=== PATIENT | female | born 1935 | race Caucasian/White ===

== ENCOUNTER → 2016-10-03 | Outpatient (CLI) | payer MEDICARE, BC ==
--- NOTE | 2016-10-04 08:31 | MM ---
Reason for exam: screening (asymptomatic). Last mammogram was performed 6 months ago. History: Patient is postmenopausal. Family history of breast cancer in maternal aunt at age 50. Benign excisional biopsy of the left breast. Physical Findings: A clinical breast exam by your physician is recommended on an annual basis and results should be correlated with mammographic findings. MG 3D Screening Mammo W/Cad Bilateral CC and MLO view(s) were taken. Prior study comparison: April 06, 2016, right breast MG 3d diag mammo w/cad RT. October 05, 2015, right breast MG 3d work up w/cad RT. There are scattered fibroglandular densities. Finding: There are typically benign vascular, round calcifications in both breasts. There is a chronic nodularity in the right breast. There is no discrete abnormality. ASSESSMENT: Benign, BI-RAD 2 RECOMMENDATION: Routine screening mammogram of both breasts in 1 year.
== END | disposition home or self-care (01) ==
LOC: RADMAMWWP 07:13
PROVIDERS: ATTEND Family Medicine
DX: Z12.31 Encounter for screening mammogram for malignant neoplasm of breast (principal)
CPT/HCPCS: 77063; G0202

== ENCOUNTER → 2017-03-08 | Outpatient (CLI) | payer MEDICARE, BC ==
--- NOTE | 2017-03-08 08:52 | XR ---
EXAMINATION TYPE: XR lumbar spine 2 or 3V DATE OF EXAM: 03/08/2017 COMPARISON: 12/11/2009 HISTORY: 81-year-old female intervertebral disc degeneration, back surgery in 2004. Numbness and ting ling for a few months. TECHNIQUE: 3 views FINDINGS: Degenerated levoconvex curvature with 5 lumbar type vertebral bodies. Hypertrophic facet arthropathy throughout, greatest in the mid to lower lumbar spine. Vertebral body heights are preserved. There is trace grade 1 anterolisthesis at L5-S1. Mild multilevel endplate spondylosis. Atherosclerotic calcif ications within the abdominal aorta. Degenerative thinning of the interspinous ligaments with abutmen t and near abutment of the spinous processes. IMPRESSION: 1. Degenerated levoconvex curvature. 2. Marked hypertrophic facet arthropathy with trace grade 1 anterolisthesis at L5-S1. 3. Mild multilevel degenerative disc disease. 4. No vertebral compression collapse. 5. Baastrup's disease.
== END | disposition home or self-care (01) ==
LOC: RADXRMAIN 07:58
PROVIDERS: ATTEND Family Medicine
DX: M51.36 Other intervertebral disc degeneration, lumbar region (principal); M46.07 Spinal enthesopathy, lumbosacral region; M48.26 Kissing spine, lumbar region; M43.8X6 Other specified deforming dorsopathies, lumbar region
CPT/HCPCS: 72100

== ENCOUNTER 2017-05-31 06:40 | Inpatient (IN) | payer MEDICARE, BC ==
[2017-05-31] MEDS ORDERED: SODIUM CHLORIDE 0.9% 1,000 ML IV STA ×2 (07:25→08:48)
[2017-05-31] MEDS ORDERED: RX INFO: IV CONTRAST WAS GIVEN 1 EACH MISC MISCELLANE PRN (07:25)
[2017-05-31] MEDS ORDERED: METOPROLOL TARTRATE 50 MG TAB PO STA (07:27)
--- NOTE | 2017-05-31 07:29 | ED ---
General Adult HPI - General Chief complaint: Neuro Symptoms/Deficit Stated complaint: Right Side Numbness Time Seen by Provider: 05/31/17 07:17 Source: patient, RN notes reviewed Mode of arrival: wheelchair Limitations: no limitations - History of Present Illness Initial comments: Patient is a pleasant 82-year-old female presenting to the emergency department with right-sided numbness. Patient last known well around 11 PM. Patient states she did have some numbness after cutting her right hand around 6:00 yesterday. Patient later noticed some numbness of her right face. Right facial numbness has resolved. Patient woke up at 2 AM and has had right upper and lower extremity numbness/tingling since that time. Patient states there is slight difficulty with walking with her right leg and is unclear whether or not there could be weakness. No confusion or speech problems. Patient is legally blind and has difficulty with eye movement. - Related Data Home Medications Medication Instructions Recorded Confirmed Aspirin 81 mg PO HS@1800 01/21/14 05/31/17 Clopidogrel [Plavix] 75 mg PO DAILY 01/21/14 05/31/17 Ezetimibe [Zetia] 10 mg PO HS 01/21/14 05/31/17 Metoprolol Tartrate [Lopressor] 50 mg PO BID 01/21/14 05/31/17 Nitroglycerin Sl Tabs [Nitrostat] 0.4 mg SUBLINGUAL Q5M PRN 01/21/14 05/31/17 ALPRAZolam [Xanax] 0.25 mg PO DAILY PRN 05/03/16 05/31/17 Cholecalciferol [Vitamin D3] 1,000 unit PO DAILY 05/03/16 05/31/17 Vits A,C,E/Lutein/Minerals 2 tab PO DAILY 05/03/16 05/31/17 [Ocuvite with Lutein Tablet] Amoxic-Pot Clav 875-125Mg 1 tab PO Q12HR 05/31/17 05/31/17 [Augmentin 875-125] Atorvastatin [Lipitor] 10 mg PO HS 05/31/17 05/31/17 Hydrochlorothiazide [Hydrodiuril] 12.5 mg PO DAILY 05/31/17 05/31/17 Levothyroxine Sodium [Synthroid] 88 mcg PO DAILY 05/31/17 05/31/17 Olmesartan [Benicar] 20 mg PO DAILY 05/31/17 05/31/17 predniSONE 20 mg PO DAILY 05/31/17 05/31/17 sitaGLIPtin PHOS/metFORMIN HCL 1 tab PO BID 05/31/17 05/31/17 [Janumet 50-500 mg Tablet] Allergies Allergy/AdvReac Type Severity Reaction Status Date / Time PAPER TAPE AdvReac RED SKIN Uncoded 05/03/16 19:26 Review of Systems ROS Statement: Those systems with pertinent positive or pertinent negative responses have been documented in the HPI. ROS Other: All systems not noted in ROS Statement are negative. Constitutional: Denies: fever Eyes: Denies: eye pain ENT: Denies: ear pain Respiratory: Denies: cough Cardiovascular: Denies: chest pain Endocrine: Denies: fatigue Gastrointestinal: Denies: abdominal pain Genitourinary: Denies: dysuria Musculoskeletal: Denies: back pain Skin: Denies: rash Neurological: Reports: paresthesias. Denies: headache Past Medical History Past Medical History: Coronary Artery Disease (CAD), Myocardial Infarction (LA) Additional Past Medical History / Comment(s): LEGALLY BLIND Last Myocardial Infarction Date:: 11/2011 History of Any Multi-Drug Resistant Organisms: None Reported Past Surgical History: Back Surgery, Heart Catheterization With Stent, Orthopedic Surgery Additional Past Surgical History / Comment(s): THROAT SURGERY, headache Additional Past Anesthesia/Blood Transfusion Reaction / Comment(s): hard to wake up Date of Last Stent Placement:: 12/22/2011 Past Psychological History: Anxiety Smoking Status: Never smoker Past Alcohol Use History: None Reported Past Drug Use History: None Reported - Past Family History Mother Family Medical History: Myocardial Infarction (LA) Brother(s) Family Medical History: Myocardial Infarction (LA) General Exam Limitations: no limitations General appearance: alert, in no apparent distress Head exam: Present: atraumatic Eye exam: Present: normal appearance, PERRL ENT exam: Present: normal oropharynx Neck exam: Present: normal inspection Respiratory exam: Present: normal lung sounds bilaterally Cardiovascular Exam: Present: regular rate, normal rhythm GI/Abdominal exam: Present: soft. Absent: tenderness Extremities exam: Present: normal inspection Neurological exam: Present: alert Expanded Neurological exam: Present: other (Difficulty assessing extraocular muscles. No gross deficit.) Speech: Present: fluid speech Cranial nerves: Facial Sensation: Abnormal Right Sensory exam: Upper Extremity Light Touch: Abnormal Right, Lower Extremity Light Touch: Abnormal Right Motor strength exam: RUE: 5, LUE: 5, RLE: 4, LLE: 5 Eye Response: (4) open spontaneously Motor Response: (6) obeys commands Verbal Response: (5) oriented Psychiatric exam: Present: normal affect, normal mood Skin exam: Present: normal color Course Vital Signs 05/31/17 05/31/17 05/31/17 06:44 07:07 08:11 Temperature 96.8 F L Pulse Rate 78 79 68 Respiratory 18 16 16 Rate Blood Pressure 231/94 223/97 219/102 O2 Sat by Pulse 95 97 96 Oximetry 05/31/17 09:13 Temperature Pulse Rate 66 Respiratory 16 Rate Blood Pressure 226/110 O2 Sat by Pulse 97 Oximetry EKG Findings - EKG Comments: EKG Findings:: Normal sinus rhythm 75. IA 182. QRS 124. QT 398. QTC 444. Normal axis. Right bundle branch block. No acute ST change. Medical Decision Making - Medical Decision Making Patient reexamined and updated. Case discussed with Dr. Cameron, who will admit his patient. Had a pleural Dyazide will be held. Patient given additional metoprolol secondary to hypertension. - Lab Data Result diagrams: 05/31/17 07:10 05/31/17 07:10 Lab Results 05/31/17 05/31/17 05/31/17 Range/Units 07:10 07:10 07:10 WBC 11.2 H (3.8-10.6) k/uL RBC 4.49 (3.80-5.40) m/uL Hgb 13.6 (11.4-16.0) gm/dL Hct 40.1 (34.0-46.0) % MCV 89.2 (80.0-100.0) fL MCH 30.2 (25.0-35.0) pg MCHC 33.9 (31.0-37.0) g/dL RDW 12.6 (11.5-15.5) % Plt Count 341 (150-450) k/uL Neutrophils % 76 % Lymphocytes % 16 % Monocytes % 6 % Eosinophils % 1 % Basophils % 0 % Neutrophils # 8.5 H (1.3-7.7) k/uL Lymphocytes # 1.7 (1.0-4.8) k/uL Monocytes # 0.6 (0-1.0) k/uL Eosinophils # 0.1 (0-0.7) k/uL Basophils # 0.0 (0-0.2) k/uL PT (9.0-12.0) sec INR (<1.2) APTT (22.0-30.0) sec Sodium 124 L (137-145) mmol/L Potassium 4.5 (3.5-5.1) mmol/L Chloride 88 L (98-107) mmol/L Carbon Dioxide 22 (22-30) mmol/L Anion Gap 14 mmol/L BUN 13 (7-17) mg/dL Creatinine 0.65 (0.52-1.04) mg/dL Est GFR (MDRD) Af Amer >60 (>60 ml/min/1.73 sqM) Est GFR (MDRD) Non-Af >60 (>60 ml/min/1.73 sqM) Glucose 144 H (74-99) mg/dL Calcium 9.1 (8.4-10.2) mg/dL Total Bilirubin 0.3 (0.2-1.3) mg/dL AST 24 (14-36) U/L ALT 30 (9-52) U/L Alkaline Phosphatase 150 H (38-126) U/L Total Creatine Kinase 206 H (30-135) U/L CK-MB (CK-2) 5.4 H* (0.0-2.4) ng/mL CK-MB (CK-2) Rel Index 2.6 Troponin I <0.012 (0.000-0.034) ng/mL Total Protein 7.3 (6.3-8.2) g/dL Albumin 4.4 (3.5-5.0) g/dL 05/31/17 Range/Units 07:10 WBC (3.8-10.6) k/uL RBC (3.80-5.40) m/uL Hgb (11.4-16.0) gm/dL Hct (34.0-46.0) % MCV (80.0-100.0) fL MCH (25.0-35.0) pg MCHC (31.0-37.0) g/dL RDW (11.5-15.5) % Plt Count (150-450) k/uL Neutrophils % % Lymphocytes % % Monocytes % % Eosinophils % % Basophils % % Neutrophils # (1.3-7.7) k/uL Lymphocytes # (1.0-4.8) k/uL Monocytes # (0-1.0) k/uL Eosinophils # (0-0.7) k/uL Basophils # (0-0.2) k/uL PT 10.6 (9.0-12.0) sec INR 1.0 (<1.2) APTT 27.1 (22.0-30.0) sec Sodium (137-145) mmol/L Potassium (3.5-5.1) mmol/L Chloride (98-107) mmol/L Carbon Dioxide (22-30) mmol/L Anion Gap mmol/L BUN (7-17) mg/dL Creatinine (0.52-1.04) mg/dL Est GFR (MDRD) Af Amer (>60 ml/min/1.73 sqM) Est GFR (MDRD) Non-Af (>60 ml/min/1.73 sqM) Glucose (74-99) mg/dL Calcium (8.4-10.2) mg/dL Total Bilirubin (0.2-1.3) mg/dL AST (14-36) U/L ALT (9-52) U/L Alkaline Phosphatase (38-126) U/L Total Creatine Kinase (30-135) U/L CK-MB (CK-2) (0.0-2.4) ng/mL CK-MB (CK-2) Rel Index Troponin I (0.000-0.034) ng/mL Total Protein (6.3-8.2) g/dL Albumin (3.5-5.0) g/dL - Radiology Data Radiology results: image reviewed (Computed tomography scan of the brain shows no acute abnormality. Moderate burden of chronic small vessel ischemic disease. ) Disposition Clinical Impression: Cerebrovascular accident, Hypertensive urgency, Hyponatremia Disposition: ADMITTED IP TO THIS HOSP Referrals: Anthony Cameron MD [Primary Care Provider] - 1-2 days Decision Time: 09:26
[2017-05-31 07:47] LABS: ALT 30 U/L (9-52); AST 24 U/L (14-36); Alkaline Phosphatase 150 U/L (38-126); Anion Gap 14 mmol/L; Blood Urea Nitrogen 13 mg/dL (7-17); Calcium 9.1 mg/dL (8.4-10.2); Carbon Dioxide 22 mmol/L (22-30); Chloride 88 mmol/L (98-107); Glucose 144 mg/dL (74-99); Non-African American GFR(MDRD) >60 (>60 ml/min/1.73 sqM); Partial Thromboplastin Time 27.1 sec (22.0-30.0); Potassium 4.5 mmol/L (3.5-5.1); Prothrombin Time 10.6 sec (9.0-12.0); Sodium 124 mmol/L (137-145); Total Bilirubin 0.3 mg/dL (0.2-1.3); Total Protein 7.3 g/dL (6.3-8.2)
[2017-05-31 08:04] LABS: Creatine Kinase 206 U/L (30-135)
--- NOTE | 2017-05-31 08:04 | CT ---
EXAMINATION TYPE: CT brain wo con DATE OF EXAM: 05/31/2017 COMPARISON: 07/13/2016 HISTORY: 82-year-old female with right side weakness TECHNIQUE: Examination was done in axial plane without intravenous contrast. Coronal and sagittal r econstructions performed. CT DLP: 945.5 mGycm Automated exposure control for dose reduction was used. FINDINGS: There is no evidence of acute intracranial hemorrhage, acute ischemic changes, mass, mass-effect, or extra-axial fluid collection. There is no effacement of cerebral sulci or basal subarachnoid cister ns. There is no hydrocephalus. There is no midline shift. Augustine-white matter distinction is preserv ed. Empty sella incidentally noted. Mild generalized supratentorial volume loss. Moderate patchy white ma tter hypodensities. Mild mucosal thickening within the ethmoid air cells. Mastoid air cells well pneumatized. Orbits and globes are intact. IMPRESSION: No acute intracranial abnormality seen at this time. Similar moderate burden of chronic small vessel ischemic disease.
--- NOTE | 2017-05-31 08:05 | XR ---
EXAMINATION TYPE: XR chest 2V DATE OF EXAM: 05/31/2017 COMPARISON: 03/12/2013 HISTORY: Altered mental status an right-sided weakness. TECHNIQUE: Frontal and lateral views of the chest are obtained. FINDINGS: There is no focal air space opacity, pleural effusion, or pneumothorax seen. The cardiac silhouette size is within normal limits. The osseous structures are intact with degenerative change s of the thoracic spine, chromic clavicular joint and glenohumeral joints. IMPRESSION: No acute cardiopulmonary process.
[2017-05-31 08:07] LABS: Basophils % (A) 0 %; CH 30.8; CHCM 34.6; Eosinophils # (A) 0.1 k/uL (0-0.7); Eosinophils % (A) 1 %; HCT 40.1 % (34.0-46.0); HDW 2.16; HGB 13.6 gm/dL (11.4-16.0); Luc # (Auto) 0.22; Luc % (Auto) 2; Lymphocytes # (A) 1.7 k/uL (1.0-4.8); Lymphocytes % (A) 16 %; MCH 30.2 pg (25.0-35.0); MCHC 33.9 g/dL (31.0-37.0); MCV 89.2 fL (80.0-100.0); Mean Platelet Volume 6.7; Monocytes # (A) 0.6 k/uL (0-1.0); Monocytes % (A) 6 %; Neutrophils # (A) 8.5 k/uL (1.3-7.7); Neutrophils % (A) 76 %; RBC 4.49 m/uL (3.80-5.40); RDW 12.6 % (11.5-15.5); WBC 11.2 k/uL (3.8-10.6); WBC (Perox) 11.12
[2017-05-31 08:16] LABS: Troponin I <0.012 ng/mL (0.000-0.034)
[2017-05-31 08:30] LABS: Creatine Kinase MB 5.4 ng/mL (0.0-2.4)
[2017-05-31] MEDS ORDERED: METOPROLOL TARTRATE 25 MG TAB PO STA (09:15)
[2017-05-31] MEDS ORDERED: ASPIRIN 325 MG TAB PO STA (09:26)
--- NOTE | 2017-05-31 09:45 | CT ---
EXAMINATION TYPE: CT angio head neck DATE OF EXAM: 05/31/2017 COMPARISON: CT brain same day HISTORY: 82-year-old female with right side weakness TECHNIQUE: Contiguous axial scanning of the brain and neck performed with IV Contrast, patient inject ed with 65 mL of Visipaque 320. Coronal/sagittal MIP reconstructions performed. 3-D reconstructions g enerated on a dedicated independent workstation. CT DLP: 265.9 mGycm Automated exposure control for dose reduction was used. FINDINGS: NECK: Mild diffuse bronchial wall thickening suggest bronchitis or chronic asthma. Mild atherosclerotic arch calcifications. Conventional arch vessel branching anatomy with patent grea t vessel origins. Mild atherosclerotic narrowing at the proximal right subclavian artery. Both vertebral arteries inclu ding their origins appear patent. On the right, there is some focal tortuosity of the proximal right common carotid artery. The common carotid artery remains patent. There is moderate atherosclerotic change at the bifurcation with moder ate to severe narrowing at the origin of the external carotid artery. Primarily soft plaque causes mi ld, 45% narrowing at the carotid bulb. On the left, the common carotid artery is patent. There is mild atherosclerotic change at the bifurca tion though a mild to moderate narrowing of the external carotid artery at its origin. Mild eccentric atherosclerotic calcifications in the distal carotid bulb contributes to a mild, 45% proximal ICA na rrowing. Head: The intracranial vertebral arteries are patent as is the basilar artery though there is moderate foca l stenosis of the distal basilar artery prior to its terminus. There is hypoplastic P1 segment left p osterior cerebral artery and persistent origin of the left TOY DEPARTMENT MANAGER. There is moderate atherosclerotic narrowing of the right ICA within the petrous canal secondary to so ft plaque. Additional moderate segmental narrowing of the bilateral internal carotid arteries within the carotid siphon secondary to arthroscopic calcifications. The remainder of the anterior circulation appears p atent without any arterial occlusion identified. No aneurysmal change identified. IMPRESSION: NECK: 1. MILD, APPROXIMATELY 45% ATHEROSCLEROTIC NARROWING WITHIN THE BILATERAL PROXIMAL ICA's BY NASCET CRITERIA. HEAD: 2. MODERATE FOCAL STENOSIS DISTAL BASILAR ARTERY PRIOR TO ITS TERMINUS. 3. SOFT PLAQUE CAUSING MODERATE NARROWING OF THE PETROUS SEGMENT RIGHT ICA. 4. ADDITIONAL MODERATE SEGMENTAL STENOSES WITHIN THE BILATERAL ICA's IN THE CAROTID SIPHONS. 5. 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 6. NO LARGE VESSEL INTRACRANIAL ARTERIAL OCCLUSION OR ANEURYSMAL CHANGE SEEN.
[2017-05-31] MEDS: SODIUM CHLORIDE 0.9% 1,000 ML IV SCH ×2 (10:00→21:20)
[2017-05-31] MEDS ORDERED: NITROGLYCERIN SL TABS 0.4 MG TAB SUBLINGUAL PRN (10:26)
--- NOTE | 2017-05-31 10:43 | ECHOF ---
Referral Reason:Thrombus MEASUREMENTS -------- HEIGHT: 149.9 cm WEIGHT: 71.2 kg BP: 169/84 RVIDd: 3.1 cm (< 3.3) IVSd: 1.2 cm (0.6 - 1.1) LVIDd: 3.4 cm (3.9 - 5.3) LVPWd: 1.2 cm (0.6 - 1.1) EDV(Teich): 47 ml IVSs: 1.6 cm LVIDs: 2.3 cm LVPWs: 1.8 cm %IVS Thck: 30 % ESV(Teich): 18 ml EF(Teich): 61 % %FS: 32 % SV(Teich): 29 ml LA Diam: 3.5 cm (2.7 - 3.8) LALs A4C: 5.8 cm LAAs A4C: 14.8 cm LAESV A-L A4C: 32 ml LAESV MOD A4C: 32 ml LALs A2C: 5.8 cm LAAs A2C: 16.2 cm LAESV A-L A2C: 38 ml LAESV MOD A2C: 36 ml LAESV(A-L): 35 ml LAESV Index (A-L): 20.91 ml/m Ao Diam: 3.2 cm (2.0 - 3.7) AV Cusp: 1.5 cm (1.5 - 2.6) MV E Adrian: 0.97 m/s MV DecT: 236 ms MV Dec [place]: 4.1 m/s MV A Adrian: 0.95 m/s MV E/A Ratio: 1.02 MV PHT: 68 ms E/E': 16.83 E': 0.06 m/s AV Vmax: 1.35 m/s AV maxP.32 mmHg TR Vmax: 2.71 m/s TR maxP.32 mmHg RAP: 5.00 mmHg RVSP: 34.32 mmHg FINDINGS -------- Sinus rhythm. This was a technically good study. The left ventricular size is normal. There is borderline concentric left ventricular hypertrophy. Overall left ventricular systolic function is normal with, an EF between 60 - 65 %. The right ventricle is normal in size. Normal LA size by volume 22+/-6 ml/m2. The right atrium is normal in size. There is mild aortic valve sclerosis. Mild mitral annular calcification present. Mild mitral regurgitation is present. Mild tricuspid regurgitation present. There is borderline pulmonary hypertension. The right ventricular systolic pressure, as measured by Doppler, is 34.32mmHg. Trace/mild (physiologic) pulmonic regurgitation. The aortic root size is normal. Normal inferior vena cava with normal inspiratory collapse consistent with estimated right atrial pressure of 5 mmHg. There is no pericardial effusion. CONCLUSIONS -------- 1. Sinus rhythm. 2. Mild mitral annular calcification present. 3. Mild mitral regurgitation is present. 4. Mild tricuspid regurgitation present. 5. There is borderline pulmonary hypertension. 6. The right ventricular systolic pressure, as measured by Doppler, is 34.32mmHg. 7. Trace/mild (physiologic) pulmonic regurgitation. 8. The aortic root size is normal. 9. Normal inferior vena cava with normal inspiratory collapse consistent with estimated right atrial pressure of 5 mmHg. 10. There is no pericardial effusion. 11. This was a technically good study. 12. The left ventricular size is normal. 13. There is borderline concentric left ventricular hypertrophy. 14. Overall left ventricular systolic function is normal with, an EF between 60 - 65 %. 15. The right ventricle is normal in size. 16. Normal LA size by volume 22+/-6 ml/m2. 17. The right atrium is normal in size. 18. There is mild aortic valve sclerosis. GLASS LAMINATING OPERATOR: Berenice Sampson RDCS
--- NOTE | 2017-05-31 12:01 | P.HPIM ---
History of Present Illness 82-year-old female presented to family physician 05/30/2017 for complaints of cough and sinus congestion. Over the night she developed right-sided weakness with right-sided facial droop she then presented to the emergency room. Patient will be admitted for evaluation of CVA. Patient has a history of coronary disease with RI with stents. 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 Last Myocardial Infarction Date:: 11/2011 History of Any Multi-Drug Resistant Organisms: None Reported Past Surgical History: Back Surgery, Breast Surgery, Heart Catheterization With Stent, Hysterectomy, Orthopedic Surgery, Tubal Ligation Additional Past Surgical History / Comment(s): RIGHT EYE CATARACT REMOVAL, LASER EYE SURGERY BILATERALLY, "TUBES IN EYES NOW OUT", THYROIDECTOMY D/T NODULES, TEMPORAL ARTERY BX, L BREAST BENIGN BX, LOW BACK SURGERY, R SHOULDER ROTATOR CUFF REPAIR, CERVICAL PAIN INJECTIONS. Additional Past Anesthesia/Blood Transfusion Reaction / Comment(s): hard to wake up Date of Last Stent Placement:: 12/22/2011 Smoking Status: Never smoker - Past Family History Mother Family Medical History: Myocardial Infarction (RI) Additional Family Medical History / Comment(s): MOTHER OF A RI AT THE AGE OF 57YRS. Brother(s) Family Medical History: Myocardial Infarction (RI) Additional Family Medical History / Comment(s): BROTHER OF A RI AT THE AGE OF 60YRS. Father Family Medical History: No Reported History Additional Family Medical History / Comment(s): FATHER LIVED TO BE 90YRS OLD. Medications and Allergies Home Medications Medication Instructions Recorded Confirmed Type Aspirin 81 mg PO HS@1800 01/21/14 05/31/17 History Clopidogrel [Plavix] 75 mg PO DAILY 01/21/14 05/31/17 History Ezetimibe [Zetia] 10 mg PO HS 01/21/14 05/31/17 History Metoprolol Tartrate [Lopressor] 50 mg PO BID 01/21/14 05/31/17 History Nitroglycerin Sl Tabs [Nitrostat] 0.4 mg SUBLINGUAL Q5M PRN 01/21/14 05/31/17 History ALPRAZolam [Xanax] 0.25 mg PO DAILY PRN 05/03/16 05/31/17 History Cholecalciferol [Vitamin D3] 1,000 unit PO DAILY 05/03/16 05/31/17 History Vits A,C,E/Lutein/Minerals 2 tab PO DAILY 05/03/16 05/31/17 History [Ocuvite with Lutein Tablet] Amoxic-Pot Clav 875-125Mg 1 tab PO Q12HR 05/31/17 05/31/17 History [Augmentin 875-125] Atorvastatin [Lipitor] 10 mg PO HS 05/31/17 05/31/17 History Hydrochlorothiazide [Hydrodiuril] 12.5 mg PO DAILY 05/31/17 05/31/17 History Levothyroxine Sodium [Synthroid] 88 mcg PO DAILY 05/31/17 05/31/17 History Olmesartan [Benicar] 20 mg PO DAILY 05/31/17 05/31/17 History predniSONE 20 mg PO DAILY 05/31/17 05/31/17 History sitaGLIPtin PHOS/metFORMIN HCL 1 tab PO BID 05/31/17 05/31/17 History [Janumet 50-500 mg Tablet] Allergies Allergy/AdvReac Type Severity Reaction Status Date / Time PAPER TAPE AdvReac RED SKIN Uncoded 05/03/16 19:26 Physical Exam Vitals: Vital Signs Temp Pulse Pulse Resp BP BP Pulse Ox 05/31/17 10:01 97.5 F L 64 18 221/108 97 05/31/17 09:41 65 18 229/96 05/31/17 09:13 66 16 226/110 97 05/31/17 08:11 68 16 219/102 96 05/31/17 07:07 79 16 223/97 97 05/31/17 06:44 96.8 F L 78 18 231/94 95 Intake and Output 1005/31/17 05/31/17 22:59 06:59 14:59 Other: Weight 71.214 kg - Constitutional General appearance: mild distress, obese - EENT Patient regularly ENT: normal oropharynx Ears: bilateral: normal - Neck Neck: normal ROM - Respiratory Respiratory: bilateral: CTA - Cardiovascular Rhythm: regular - Gastrointestinal General gastrointestinal: soft - Integumentary Integumentary: normal - Neurologic Neurologic: CNII-XII intact - Musculoskeletal Musculoskeletal: right sided weakness - Psychiatric Psychiatric: A&O x's 3, appropriate affect, intact judgment & insight Results CBC & Chem 7: 05/31/17 07:10 05/31/17 07:10 Labs: Abnormal Lab Results - Last 24 Hours (Table) 05/31/17 05/31/17 05/31/17 Range/Units 07:10 07:10 07:10 WBC 11.2 H (3.8-10.6) k/uL Neutrophils # 8.5 H (1.3-7.7) k/uL Sodium 124 L (137-145) mmol/L Chloride 88 L (98-107) mmol/L Glucose 144 H (74-99) mg/dL Alkaline Phosphatase 150 H (38-126) U/L Total Creatine Kinase 206 H (30-135) U/L CK-MB (CK-2) 5.4 H* (0.0-2.4) ng/mL Chest x-ray: report reviewed CT Scan - head: report reviewed Thrombosis Risk Factor Assmnt - Choose All That Apply Any of the Below Risk Factors Present?: Yes Each Factor Represents 1 point: Obesity (BMI >25) Other Risk Factors: Yes Each Risk Factor Represents 3 Points: Age 75 years or older Other congenital or acquired thrombophilia - If yes, enter type in comment: Yes Each Risk Factor Represents 5 Points: Stroke (< 1 month) Thrombosis Risk Factor Assessment Total Risk Factor Score: 9 Thrombosis Risk Factor Assessment Level: High Risk Assessment and Plan Plan: Assessment CVA right-sided weakness Hypertensive urgency Hyponatremia Sinusitis History of coronary disease with RI has stents Liver blind History of hypothyroidism History of hypertension Hyperlipidemia History of CVA/TIA Plan Consultation with neurology regarding CVA Consultation with cardiology regarding hypertension
[2017-05-31 12:25] LABS: Glucose,Whole Blood 121 mg/dL (75-99)
[2017-05-31] MEDS: amLODIPine 5 MG TAB PO SCH ×2 (12:56→21:17)
--- NOTE | 2017-05-31 13:07 | CONS ---
CONSULTATION Mrs. Brewster is an 82-year-old female who is followed by Dr. Isaiah Silva, has a known history of coronary artery disease, prior history of stroke, history of hypertension, hyperlipidemia, who presented to the hospital with right-sided numbness. Patient had underwent percutaneous revascularization in 2011, has been relatively stable from the cardiac standpoint, has mild dyspnea on exertion, occasional sharp chest pain. Today had numbness in the right upper extremity and lower extremity as well as right side of the face. Came into the emergency room, her blood pressure was quite elevated. Patient denies any significant chest discomfort, although earlier she had some chest heaviness. She has mild dyspnea on exertion that has been stable. Occasional peripheral edema. No clear PND or orthopnea. She has no history of arrhythmia. No PND, orthopnea, or syncope. She is in sinus mechanism on presentation. Her coronary risk factors are remarkable for hypertension and hyperlipidemia. She is a nonsmoker. She is diabetic. MEDICATION: Include Janumet 50-500 mg twice a day, Benicar 20 mg daily, metoprolol tartrate 50 mg twice a day, hydrochlorothiazide 12.5 mg daily, Zetia 10 mg daily, Plavix 75 mg daily, Lipitor 10 mg daily, aspirin once a day, and Xanax on a p.r.n. basis. REVIEW OF SYSTEMS: RESPIRATORY SYSTEM: She has no recent wheezing or cough. No history of obstructive lung disease. She has mild dyspnea on exertion. GI SYSTEM: No recent GI bleed. No peptic ulcer disease. SYSTEM: No dysuria or hematuria. NERVOUS SYSTEM: She has a prior history of stroke and she is legally blind. PHYSICAL EXAMINATION: She is an 82-year-old female, alert, oriented, in no apparent distress. Legally blind. Blood pressure running in the 220s/100 with a heart rate in the 60s. HEAD: Normocephalic. EYES: Sclerae nonicteric. NECK: Good upstroke. No bruit. LUNGS: Clear to auscultation. HEART: Regular rate and rhythm, S1, S2. No S3 with systolic murmur at the base. No diastolic murmur. No rub. ABDOMEN: Soft, nontender. No organomegaly. EXTREMITIES: No edema. LAB DATA: Revealed a BUN and creatinine of 13 and 0.6, potassium 4.5. Troponin less than 0.012. Her sodium is 124, hemoglobin of 13.6. EKG revealed a sinus mechanism with right bundle branch block. Cannot exclude a lateral wall WI. Her echocardiogram revealed a preserved ventricular size and systolic function. IMPRESSION: 1. Symptoms consistent with right-sided cerebrovascular accident. 2. Hypertension with hypertensive urgency. 3. Hyponatremia. 4. History of coronary artery disease. 5. Legally blind. 6. Hyperlipidemia. 7. Diabetes mellitus. RECOMMENDATION: I will add Norvasc 5 mg daily to the regimen as well as nitro paste and hydralazine to bring her blood pressure down. If there is an issue, then patient will need to be started on intravenous treatment. Will follow her sodium and depending on that, the issue of diuretic can be re-initiated. Thank you for this consult. We will follow with you. JALILL / IJN: [id number] /
[2017-05-31] MEDS: hydrALAZINE HCL 25 MG TAB PO SCH ×3 (13:10→21:17)
[2017-05-31 13:40] LABS: Hemoglobin A1C 6.5 % (4.2-6.1)
--- NOTE | 2017-05-31 14:03 | US ---
EXAMINATION TYPE: US carotid duplex BILAT DATE OF EXAM: 05/31/2017 COMPARISON: NONE CLINICAL HISTORY: Stenosis. EXAM MEASUREMENTS: RIGHT: Peak Systolic Velocity (PSV) cm/sec ----- Right CCA: 68.8 ----- Right ICA: 95.4 ----- Right ECA: 328.8 ICA/CCA ratio: 1.4 RIGHT: End Diastole cm/sec ----- Right CCA: 7.7 ----- Right ICA: 12.4 ----- Right ECA: 0.0 LEFT: Peak Systolic Velocity (PSV) cm/sec ----- Left CCA: 67.9 ----- Left ICA: 90.2 ----- Left ECA: 266.9 ICA/CCA ratio: 1.3 LEFT: End Diastole cm/sec ----- Left CCA: 7.0 ----- Left ICA: 13.7 ----- Left ECA: 0.0 VERTEBRALS (direction of flow): Right Vertebral: Antegrade Left Vertebral: Antegrade Rhythm: Normal Moderate grayscale atheromatous change, no significant velocity elevations in bilateral ICA, however ECA's show velocity elevations bilaterally. IMPRESSION: 1. No evidence of hemodynamically significant stenosis within either internal carotid artery. 2. Elevated velocities of the external carotid arteries and moderate plaquing of the bilateral caroti d bulbs indicating stenosis of 50-69% of both external carotid arteries.
[2017-05-31] MEDS: NITROGLYCERIN OINT 1 INCH/GM PACKET TOPICAL SCH ×2 (15:04→23:27)
[2017-05-31 16:40] LABS: Glucose,Whole Blood 95 mg/dL (75-99)
[2017-05-31] MEDS: INSULIN LISPRO (humaLOG) 300 UNIT/3 ML VIAL SQ SCH ×2 (17:02→21:22)
[2017-05-31] MEDS: metFORMIN 500 MG TAB PO SCH (17:03)
[2017-05-31] MEDS ORDERED: ATORVASTATIN 10 MG TAB PO SCH (21:00)
[2017-05-31] MEDS: AMOXIC-POT CLAV 875-125MG 1 EACH TAB PO SCH (21:16)
[2017-05-31] MEDS: METOPROLOL TARTRATE 50 MG TAB PO SCH (21:17)
[2017-05-31] MEDS: EZETIMIBE 10 MG TAB PO SCH (21:17)
[2017-05-31] MEDS: ATORVASTATIN 40 MG TAB PO SCH (21:17)
[2017-05-31 21:33] LABS: Glucose,Whole Blood 130 mg/dL (75-99)
[2017-05-31] MEDS: ALPRAZolam 0.25 MG TAB PO PRN (23:26)
[2017-06-01] MEDS: SODIUM CHLORIDE 0.9% 1,000 ML IV SCH ×3 (05:30→20:18)
[2017-06-01 06:08] LABS: Glucose,Whole Blood 123 mg/dL (75-99)
[2017-06-01] MEDS: INSULIN LISPRO (humaLOG) 300 UNIT/3 ML VIAL SQ SCH ×4 (06:31→20:15)
[2017-06-01 06:39] LABS: Anion Gap 9 mmol/L; Blood Urea Nitrogen 15 mg/dL (7-17); Calcium 8.2 mg/dL (8.4-10.2); Carbon Dioxide 24 mmol/L (22-30); Chloride 98 mmol/L (98-107); Cholesterol 138 mg/dL (<200); Glucose 130 mg/dL (74-99); HDL Cholesterol 62 mg/dL (40-60); Non-African American GFR(MDRD) >60 (>60 ml/min/1.73 sqM); Potassium 4.8 mmol/L (3.5-5.1); Sodium 131 mmol/L (137-145)
[2017-06-01] MEDS: LEVOTHYROXINE 88 MCG TAB PO SCH (06:49)
[2017-06-01] MEDS: NITROGLYCERIN OINT 1 INCH/GM PACKET TOPICAL SCH (08:35)
[2017-06-01] MEDS: AMOXIC-POT CLAV 875-125MG 1 EACH TAB PO SCH ×2 (08:35→20:09)
[2017-06-01] MEDS: METOPROLOL TARTRATE 50 MG TAB PO SCH ×2 (08:36→20:09)
[2017-06-01] MEDS: LINAGLIPTIN 5 MG TABLET PO SCH (08:36)
[2017-06-01] MEDS: ASPIRIN 325 MG TAB PO SCH (08:36)
[2017-06-01] MEDS: amLODIPine 5 MG TAB PO SCH ×2 (08:36→20:09)
[2017-06-01] MEDS: LOSARTAN 50 MG TAB PO SCH (08:37)
[2017-06-01] MEDS: CHOLECALCIFEROL 1,000 UNIT TAB PO SCH (08:37)
[2017-06-01] MEDS: metFORMIN 500 MG TAB PO SCH ×2 (08:37→17:27)
[2017-06-01] MEDS: hydrALAZINE HCL 25 MG TAB PO SCH (08:38)
[2017-06-01] MEDS: VIT A,C & E-LUTEIN-MINERALS 1 EACH TAB PO SCH (08:50)
--- NOTE | 2017-06-01 10:17 | CONS ---
CONSULTATION DATE OF CONSULTATION: 05/31/2017 CHIEF COMPLAINT: Stroke. HISTORY OF PRESENT ILLNESS: Mrs. Brewster is a pleasant 82-year-old female who is being evaluated today on 05/31/2017 by the Neurology Service per the request of Dr. Anthony Cameron for a stroke. The patient was brought into [facility] with the complaints of numbness and weakness on her right side. The patient woke up with no symptoms early this morning and she denied having any neurological symptoms when she went to sleep. The patient is already on aspirin and Plavix at home due to history of coronary artery stent placement. A stat CT scan of the brain was done which showed small-vessel ischemic changes. Her carotid Doppler showed 50% to 69% stenosis involving bilateral carotid bulbs. Her CBC was normal except for mild leukocytosis at 11.2. Her comprehensive metabolic profile was normal except for hyponatremia at 124. Her cardiac enzymes were reviewed and showed slightly elevated CPK and CK-MB, but her troponin I was normal. The patient was admitted for further workup and management. At the time of my evaluation, the patient is lying in her bed and appears to be in no acute distress. She denies any changes in her symptoms and continues to complain of numbness involving her right face, right arm, and right leg along with some extremity weakness. PAST MEDICAL HISTORY: Coronary artery disease with stent placement, history of myocardial infarction, orthopedic surgeries, anxiety disorder. SOCIAL HISTORY: She denies any tobacco, alcohol, or drug use. FAMILY HISTORY: Positive for heart disease. HOME MEDICATIONS: Reviewed in the chart. ALLERGIES: PAPER TAPE. REVIEW OF SYSTEMS: CONSTITUTIONAL: Negative. EYES: Positive for chronic diminished vision. ENT: Negative. CARDIOVASCULAR: As mentioned above. RESPIRATORY: Negative. NEUROLOGICAL: As mentioned above. GASTROINTESTINAL: Negative. GENITOURINARY: Negative. PSYCHIATRIC: Positive for history of anxiety disorder. MUSCULOSKELETAL: Positive for occasional joint pain. ENDOCRINE: Negative. DERMATOLOGICAL: Negative. PHYSICAL EXAM: Vital signs show a temperature of 98.2, pulse 68, respiration 18, blood pressure 170/70. GENERAL APPEARANCE: The patient is a well-developed, elderly female who appears to be in no acute distress. HEENT: Normocephalic, atraumatic, no facial asymmetry is seen. NECK: Supple with no masses felt. CARDIOVASCULAR: Regular rate and rhythm. ABDOMEN: Nontender nondistended. Extremities showed no edema or clubbing. NEUROLOGICAL EXAM: The patient is alert, aware and oriented x3. Speech and language are normal. Strength is 4/5 on the right and 5/5 on the left. Pronator drift is present on the right. Sensory exam showed diminished light touch sensation on the right compared to left. Radial nerve testing showed diminished light touch sensation on the right face compared to the left. No facial weakness is noticed. Dysdiadochokinesia is present on the right side compared to the left. No tremors or seizure-like activity is seen. IMPRESSION: 1. Acute ischemic stroke, left middle cerebral artery distribution. 2. Right hemiparesis. 3. Right-sided sensory deficit. 4. Carotid stenosis. RECOMMENDATION: The patient does appear to have suffered an acute ischemic stroke. Her CT scan of the brain was reviewed and it showed no acute intracranial abnormalities. The patient is already on aspirin and Plavix at home and I will keep her on her current anti-platelet regimen. I will order an MRI of the brain. I will also order an MRA of the neck given her carotid Doppler findings. Physical Therapy and Occupational Therapy will be consulted. I will order a fasting lipid panel, EEG, and serum homocystine level. Continue IV hydration as tolerated. Continue neuro checks. I will continue to follow with you. Further recommendations to follow. Thank you, Dr. Cameron for allowing me to participate in the care of your patient. If you have any questions, please feel free to contact me. DILMA / IJN: [id number] /
--- NOTE | 2017-06-01 12:36 | MR ---
"EXAMINATION TYPE: MR brain wo con DATE OF EXAM: 06/01/2017 COMPARISON: 03/03/2016 HISTORY: CVA T1-weighted sagittal, T2, FLAIR, and diffusion axial, and T2 coronal coronal views of the brain are s ubmitted. There is a 9 mm area of abnormal signal within the left thalamus compatible with acute ischemia. No s ignificant mass effect. Changes of chronic sinusitis noted. Thickening along the posterior lateral wall of the left lobe note d. [id number] generalized degenerative change. Diffuse focal and confluent areas of abnormal signal the white matter are nonspecific but most typica l remote microvascular ischemia. No cerebellopontine angle mass. Hyperostosis of the frontal bone noted. Partially empty sella turcica . Craniocervical junction maintained. Increased signal near the head of the mandible on the left note d appears chronic. IMPRESSION: 1. There is a 9 mm area of acute ischemia within the left thalamus. Patient's nurse was notified by rina zuluaga. 2. Degenerative and extensive white matter changes which are nonspecific but most typical of remote m icrovascular ischemia. Demyelinating process not excluded. 3. Thickening along the posterior lateral marginal left lobe is stable from previous 4. Changes of chronic sinusitis A Red message has been communicated to Klaudia Apodaca via the [employer] other things you bake | Critical Result syste m on 06/01/2017 12:31 PM, Message ID [id number]."
--- NOTE | 2017-06-01 12:41 | P.PN ---
Subjective She states she's continued numbness and tingling to right-sided face right arm and right leg. MRI showing acute ischemic infarct Objective - Vital Signs Vital signs: Vital Signs Temp 97.1 F L 06/01/17 08:00 Pulse 68 06/01/17 08:00 Resp 16 06/01/17 08:00 BP 165/70 06/01/17 08:00 Pulse Ox 94 L 06/01/17 08:00 Intake & Output 05/31/17 06/01/17 06/01/17 18:59 06:59 18:59 Intake Total 360 700 800 Balance 360 700 800 Weight 72 kg Intake: Intake, IV Titration 400 800 Amount Sodium Chloride 0.9% 1, 400 800 000 ml @ 100 mls/hr IV . Q10H [facility] Rx#:[id number] Oral 360 300 Other: Voiding Method Toilet Toilet # Voids 1 2 - Constitutional General appearance: Present: obese - EENT EENT Comment(s): Patient legally blind Ears: bilateral: normal - Neck Neck: Present: normal ROM - Respiratory Respiratory: bilateral: CTA - Cardiovascular Rhythm: regular - Gastrointestinal General gastrointestinal: Present: soft - Integumentary Integumentary: Present: normal - Neurologic Neurologic Comment(s): Slight of right-sided facial droop - Musculoskeletal Musculoskeletal: Present: right sided weakness - Psychiatric Psychiatric: Present: A&O x's 3, appropriate affect, intact judgment & insight - Labs CBC & Chem 7: 05/31/17 07:10 06/01/17 05:30 Labs: Abnormal Lab Results - Last 24 Hours (Table) 05/31/17 05/31/17 06/01/17 Range/Units 07:10 21:22 05:30 Sodium 131 L (137-145) mmol/L Glucose 130 H (74-99) mg/dL POC Glucose (mg/dL) 130 H (75-99) mg/dL Hemoglobin A1c 6.5 H (4.2-6.1) % Calcium 8.2 L (8.4-10.2) mg/dL HDL Cholesterol 62 H (40-60) mg/dL 06/01/17 Range/Units 06:02 Sodium (137-145) mmol/L Glucose (74-99) mg/dL POC Glucose (mg/dL) 123 H (75-99) mg/dL Hemoglobin A1c (4.2-6.1) % Calcium (8.4-10.2) mg/dL HDL Cholesterol (40-60) mg/dL - Imaging and Cardiology MRI - head: report reviewed Assessment and Plan Plan: Assessment CVA right-sided weakness Hypertensive urgency History of coronary disease with NC and stents Legally blind Sinusitis History of hypothyroidism Hypertension Hyperlipidemia History of CVA/TIA Plan Continue consultation with neurology and cardiology
[2017-06-01 12:44] LABS: Glucose,Whole Blood 94 mg/dL (75-99)
--- NOTE | 2017-06-01 13:44 | MR ---
EXAMINATION TYPE: MR angio neck wo/w con DATE OF EXAM: 06/01/2017 COMPARISON: Carotid ultrasound and CTA head and neck from yesterday. HISTORY: CVA per order. Patient admitted for acute onset right-sided weakness yesterday. CONTRAST: Standard multiplanar, multisequence MRI departmental protocol utilizing 7.5 mL intravenous Gadavist g adolinium contrast. 2-D and 3-D postprocessing is performed. FINDINGS: There is normal three-vessel origin from aortic arch redemonstrated. The right common carotid artery shows normal origin from the right brachiocephalic artery. There is no significant stenosis along cou rse of the right common carotid artery. No significant stenosis is seen in the right internal carotid artery. There is significant stenosis in the right external carotid artery at its origin estimated 9 0-95%. This correlates and is seen better on recent CTA. There is no significant stenosis seen in the left common or internal carotid artery. There is patent external carotid artery without significant stenosis. There is codominant vertebrobasilar system. Vertebral arteries are patent to basilar junction. There is persistent origin left-sided posterior communicating artery from ICA. There is hypoplastic r ight posterior communicating artery. No significant stenosis or aneurysmal change is seen. Images of the anterior circulation show poor visualization of the anterior communicating artery. There is no si gnificant focal stenosis or aneurysmal change seen. IMPRESSION: 1. No aneurysmal change or significant focal stenosis at level of [place]. 2. No significant focal stenosis in common or internal carotid arteries bilaterally. Significant foca l stenosis at origin of right external carotid artery is noted estimated 90-95%.
--- NOTE | 2017-06-01 14:17 | PN ---
PROGRESS NOTE Mrs. Brewster is an 82-year-old female with a history of hypertension who presented with evidence of cerebrovascular accident. She still has numbness on the right side. Denies any chest pain. Her blood pressure is under better control. She denies any dizziness or palpitation. She denies any nausea. She continues to be at this time on amlodipine 5 mg twice a day, aspirin once a day, Lipitor 40 mg daily, Plavix 75 mg daily, hydralazine 25 mg 3 times a day, losartan 100 mg daily, metformin 500 mg twice a day, metoprolol tartrate 50 mg twice a day. Nitroglycerin paste 1 inch q.8 hours. PHYSICAL EXAMINATION: Her blood pressure is running in the 160/70 with a heart rate in the 60s. LUNGS: Clear. HEART: Regular rate and rhythm. S1, S2. No S3 with systolic murmur. No diastolic murmur. ABDOMEN: Soft, nontender. EXTREMITIES: No edema. LAB DATA: Her sodium is up to 131, BUN and creatinine 15 and 0.7. Her cholesterol is 138 with an LDL of 48. IMPRESSION: 1. Cerebrovascular accident. 2. Hypertension. 3. Hyperlipidemia. 4. Diabetes mellitus. RECOMMENDATION: From the cardiac standpoint, I will stop the nitroglycerin paste. Increase the dose of her hydralazine. Continue rest of medical regimen. Follow her blood pressure and sodium and depending on her progress, further recommendation will be made. MMODL / IJN: [id number] /
[2017-06-01] MEDS: hydrALAZINE HCL 50 MG TAB PO SCH ×2 (16:07→20:10)
--- NOTE | 2017-06-01 16:45 | P.CONS ---
History of Present Illness - Chief Complaint Gait disturbance, right hemiparesthesias - History of Present Illness I had the opportunity to see patient for inpatient rehab consultation with regard to gait disturbance. She was admitted to [facility] yesterday acute onset right-sided weakness. CTA demonstrated moderate basal artery stenosis, moderate narrowing at right ICA and variant left HOSTESS HOST. Head CT with chronic small vessel change. Chest x-ray negative. Carotid Doppler with 50-70% bilateral stenosis. MRI with left thalamic infarct, white matter change chronic sinusitis. Therapies started. PT reports minimal assistance for transfers and minimal to moderate assistance for gait 24 feet with IV pole. Speech therapy notes no significant cognitive change. OT prescribed. Previous functional history: As elicited from patient: 82-year-old right-handed white female who is lives in a 2 floor home with . Doesn't smoke or drink. Independent with cooking, laundry, standing shower and gait without device. Takes care of who has dementia. Noted patient legally blind and hard of hearing. Dr. Cameron is regular doctor. Family history mother of MD. Review of Systems Review of systems: ENT: Hard of hearing bilateral. Eyes: Legally blind and wearing dark glasses. Cardiac: Denies chest pain or palpitation. Pulmonary: Denies cough or shortness of breath. Breast: Denies discharge or lumps. Gastrointestinal: Denies nausea, emesis, constipation, diarrhea. Genitourinary: Denies discharge or frequency. Musculoskeletal: Denies muscle or bone aches. Neurologic: Right-sided weakness and numbness. Endocrine: Denies shakes or sweats. Oncology: Denies cancers. Dermatologic: Denies rash, itching, pruritus. ALLERGY/immunology: Denies sneezes, rashes. 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 Last Myocardial Infarction Date:: 11/2011 History of Any Multi-Drug Resistant Organisms: None Reported Past Surgical History: Back Surgery, Breast Surgery, Heart Catheterization With Stent, Hysterectomy, Orthopedic Surgery, Tubal Ligation Additional Past Surgical History / Comment(s): RIGHT EYE CATARACT REMOVAL, LASER EYE SURGERY BILATERALLY, "TUBES IN EYES NOW OUT", THYROIDECTOMY D/T NODULES, TEMPORAL ARTERY BX, L BREAST BENIGN BX, LOW BACK SURGERY, R SHOULDER ROTATOR CUFF REPAIR, CERVICAL PAIN INJECTIONS. Additional Past Anesthesia/Blood Transfusion Reaction / Comm: hard to wake up Date of Last Stent Placement:: 12/22/2011 Smoking Status: Never smoker - Past Family History Mother Family Medical History: Myocardial Infarction (MD) Additional Family Medical History / Comment(s): MOTHER OF A MD AT THE AGE OF 57YRS. Brother(s) Family Medical History: Myocardial Infarction (MD) Additional Family Medical History / Comment(s): BROTHER OF A MD AT THE AGE OF 60YRS. Father Family Medical History: No Reported History Additional Family Medical History / Comment(s): FATHER LIVED TO BE 90YRS OLD. Medications and Allergies Home Medications Medication Instructions Recorded Confirmed Type Aspirin 81 mg PO HS@1800 01/21/14 05/31/17 History Clopidogrel [Plavix] 75 mg PO DAILY 01/21/14 05/31/17 History Ezetimibe [Zetia] 10 mg PO HS 01/21/14 05/31/17 History Metoprolol Tartrate [Lopressor] 50 mg PO BID 01/21/14 05/31/17 History Nitroglycerin Sl Tabs [Nitrostat] 0.4 mg SUBLINGUAL Q5M PRN 01/21/14 05/31/17 History ALPRAZolam [Xanax] 0.25 mg PO DAILY PRN 05/03/16 05/31/17 History Cholecalciferol [Vitamin D3] 1,000 unit PO DAILY 05/03/16 05/31/17 History Vits A,C,E/Lutein/Minerals 2 tab PO DAILY 05/03/16 05/31/17 History [Ocuvite with Lutein Tablet] Amoxic-Pot Clav 875-125Mg 1 tab PO Q12HR 05/31/17 05/31/17 History [Augmentin 875-125] Atorvastatin [Lipitor] 10 mg PO HS 05/31/17 05/31/17 History Hydrochlorothiazide [Hydrodiuril] 12.5 mg PO DAILY 05/31/17 05/31/17 History Levothyroxine Sodium [Synthroid] 88 mcg PO DAILY 05/31/17 05/31/17 History Olmesartan [Benicar] 20 mg PO DAILY 05/31/17 05/31/17 History predniSONE 20 mg PO DAILY 05/31/17 05/31/17 History sitaGLIPtin PHOS/metFORMIN HCL 1 tab PO BID 05/31/17 05/31/17 History [Janumet 50-500 mg Tablet] Allergies Allergy/AdvReac Type Severity Reaction Status Date / Time PAPER TAPE AdvReac RED SKIN Uncoded 05/03/16 19:26 Physical Exam Vitals: Vital Signs Temp Pulse Resp BP Pulse Ox 06/01/17 16:00 97 F L 70 16 186/89 93 L 06/01/17 15:18 16 06/01/17 08:00 97.1 F L 68 16 165/70 94 L 06/01/17 04:00 98.2 F 65 16 161/69 100 06/01/17 00:00 64 16 167/74 95 05/31/17 20:00 98.1 F 68 18 148/66 95 Intake and Output 06/01/17 06/01/17 06/01/17 06:59 14:59 22:59 Intake Total 700 1274 800 Output Total 300 Balance 700 1274 500 Intake: Intake, IV Titration 400 800 800 Amount Sodium Chloride 0.9% 1, 400 800 800 000 ml @ 100 mls/hr IV . Q10H [facility] Rx#:[id number] Oral 300 474 Output: Urine 300 Other: Voiding Method Toilet Toilet Toilet # Voids 2 3 Weight 72 kg Skin: Good color, texture, turgor. General: Overweight and comfortable appearance. Head: Normocephalic, atraumatic. Eyes: Wearing dark glasses. Legally blind. Ears: Symmetric. Hearing diminished bilateral. Mouth: Clear. Neck: Supple. Carotid without bruit. Cardiac: Regular rate and rhythm. Lungs: Clear anteriorly and posteriorly. Abdomen: Soft active nontender. Extremities: Normal tone. Neurological: Mental status: Alert, cooperative, pleasant. Cranial nerves: Right facial weakness. Motor: Normal strength and isolation left side. Right arm and leg weak and in synergy.. Sensation: Depressed right face, arm, leg as compared to left. DTRs: Symmetric and equal throughout. Mobility: Sits and stands with minimal to moderate assistance. Results CBC & Chem 7: 05/31/17 07:10 06/01/17 05:30 Labs: Abnormal Lab Results - Last 24 Hours (Table) 05/31/17 06/01/17 06/01/17 Range/Units 21:22 05:30 06:02 Sodium 131 L (137-145) mmol/L Glucose 130 H (74-99) mg/dL POC Glucose (mg/dL) 130 H 123 H (75-99) mg/dL Calcium 8.2 L (8.4-10.2) mg/dL HDL Cholesterol 62 H (40-60) mg/dL Chest x-ray: report reviewed (Negative.) CT Scan - head: report reviewed (Chronic small vessel change.) MRI - head: report reviewed (Left thalamic infarct, white matter change and chronic sinusitis. MRA negative.) Assessment and Plan Plan: Impression: 1. Gait disturbance with right hemiparesthesias related to left thalamic infarct. 2 hard of hearing. 3. Legally blind. 4. History of previous stroke. 5. Hypertension. 6. Dyslipidemia. 7. Coronary artery disease with History of MD. 8. Osteoarthritis. 9. Hypothyroid. 10. Reflux. Comments and plan: At this time PT and ST ongoing. OT prescribed. Safety concerns noted. Patient demonstrated ability tolerate and benefit from therapies and would of course consider for inpatient rehab. Have discussed this with patient and she is agreeable. She is concerned about returning home and taking care of her .
[2017-06-01 17:24] LABS: Glucose,Whole Blood 125 mg/dL (75-99)
[2017-06-01 17:24] LABS: Glucose,Whole Blood 173 mg/dL (75-99)
[2017-06-01] MEDS: EZETIMIBE 10 MG TAB PO SCH (20:09)
[2017-06-01] MEDS: ATORVASTATIN 40 MG TAB PO SCH (20:09)
[2017-06-01 20:26] LABS: Glucose,Whole Blood 120 mg/dL (75-99)
[2017-06-01] MEDS: ALPRAZolam 0.25 MG TAB PO PRN (21:18)
--- NOTE | 2017-06-01 23:02 | P.PN ---
Subjective Progress Note Date: 06/01/17 Principal diagnosis: CVA neurology is following on an 82-year-old female for CVA. Patient was brought to the emergency room with complaints of numbness and weakness in her right side. Patient woke up with no symptoms early in the morning 2 days ago. Patient denied having any neurological symptoms when she went to sleep. Patient was already on aspirin and Plavix at home due to history of coronary stent placement. CT scan of the brain was done which showed small vessel ischemic changes. Carotid Doppler showed 50-69% stenosis involving the bilateral carotid bulbs. CBC was normal except for mild leukocytosis. CMP was normal except for hyponatremia. Cardiac enzymes were reviewed and showed a slightly elevated CPK and CK-MB but her troponin was normal. Patient was admitted for further workup. Patient did have an MRI of the brain which noted a 9 mm area of acute ischemia within the left thalamus. Degenerative and extensive white matter changes which were nonspecific but most typical of remote microvascular ischemia were noted. Demyelination was not excluded. Thickening along the posterolateral margin of the left lobe is stable from previous. MR angiogram noted no aneurysmal change or significant focal stenosis at the level of the [place]. No significant focal stenosis in common or internal carotid arteries bilaterally. However, significant focal stenosis at the origin of the right external carotid artery noted an estimated at 90-95%. At contact, the patient was resting in bed, alert and oriented 3, no acute distress. Family was at the bedside. Objective - Vital Signs Vital signs: Vital Signs Temp 97.3 F L 06/01/17 20:00 Pulse 79 06/01/17 20:00 Resp 16 06/01/17 20:00 BP 191/79 06/01/17 20:00 Pulse Ox 99 06/01/17 20:00 Intake & Output 06/01/17 06/01/17 06/02/17 06:59 18:59 06:59 Intake Total 700 2311 Output Total 300 Balance 2010 Weight 72 kg Intake: Intake, IV Titration 400 1600 Amount Sodium Chloride 0.9% 1, 400 1600 000 ml @ 100 mls/hr IV . Q10H [facility] Rx#:[id number] Oral 300 711 Output: Urine 300 Other: Voiding Method Toilet Toilet Toilet # Voids 2 1 - Exam HEENT: Normocephalic, atraumatic, no facial asymmetry noted. Neck: Supple with no masses felt. Cardiovascular: Regular rate and rhythm. Abdomen: Nontender, nondistended, extremity showed no edema or clubbing. Neurological exam: Patient is alert, where and oriented 3, speech and language are normal, strength is 4/5 on the right and 5/5 on the left. Pronator drift present on the right. Sensory exam showed diminished light touch on the right face compared to left. No facial weakness was observed. Dysdiadochokinesia is present on the right side compared to left. No tremor or seizure-like activity noted. - Labs CBC & Chem 7: 05/31/17 07:10 06/01/17 05:30 Labs: Abnormal Lab Results - Last 24 Hours (Table) 06/01/17 06/01/17 06/01/17 Range/Units 05:30 06:02 16:49 Sodium 131 L (137-145) mmol/L Glucose 130 H (74-99) mg/dL POC Glucose (mg/dL) 123 H 173 H (75-99) mg/dL Calcium 8.2 L (8.4-10.2) mg/dL HDL Cholesterol 62 H (40-60) mg/dL 06/01/17 06/01/17 Range/Units 16:54 20:14 Sodium (137-145) mmol/L Glucose (74-99) mg/dL POC Glucose (mg/dL) 125 H 120 H (75-99) mg/dL Calcium (8.4-10.2) mg/dL HDL Cholesterol (40-60) mg/dL Assessment and Plan (1) Cerebrovascular accident Status: Acute (2) Hyponatremia Status: Acute Plan: 1. Acute ischemic stroke 2. Right hemiparesis, right-sided sensory deficit 3. Carotid stenosis Patient does appear to have suffered an acute ischemic stroke. CT of the brain noted no acute intracranial abnormalities. Patient is on aspirin and Plavix at home. She will maintain these medications. MRI of the brain has a noted 9 mm area of acute ischemia within the left thalamus. MRA angiogram noted significant focal stenosis at the origin of the right external carotid artery estimated at 90-95%. Vascular is on consult. serum homocysteine level is ordered. EEG has been ordered. continue speech, PT, OT. Continue neuro checks per existing order. Continue aspirin, Plavix, Lipitor at existing dose and frequency. status: Neurology will continue to follow and provide updates as needed or warranted. Contact our office with any questions. I discussed the patient's pertinent medical information with Dr. Apodaca. He agrees with the plan of care as implemented.
[2017-06-02] MEDS: SODIUM CHLORIDE 0.9% 1,000 ML IV SCH (05:54)
[2017-06-02] MEDS: hydrALAZINE HCL 50 MG TAB PO SCH ×3 (05:55→21:54)
[2017-06-02] MEDS: LEVOTHYROXINE 88 MCG TAB PO SCH (05:56)
[2017-06-02 06:11] LABS: Glucose,Whole Blood 137 mg/dL (75-99)
[2017-06-02] MEDS: metFORMIN 500 MG TAB PO SCH ×2 (06:33→16:24)
[2017-06-02] MEDS: INSULIN LISPRO (humaLOG) 300 UNIT/3 ML VIAL SQ SCH ×4 (06:34→21:52)
[2017-06-02 06:56] LABS: Anion Gap 11 mmol/L; Blood Urea Nitrogen 15 mg/dL (7-17); Calcium 8.4 mg/dL (8.4-10.2); Carbon Dioxide 22 mmol/L (22-30); Chloride 99 mmol/L (98-107); Glucose 130 mg/dL (74-99); Non-African American GFR(MDRD) >60 (>60 ml/min/1.73 sqM); Potassium 4.3 mmol/L (3.5-5.1); Sodium 132 mmol/L (137-145)
[2017-06-02 07:23] LABS: Glucose,Whole Blood 141 mg/dL (75-99)
[2017-06-02] MEDS ORDERED: RX INFO: IV CONTRAST WAS GIVEN 1 EACH MISC MISCELLANE PRN ×2 (07:27→07:28)
[2017-06-02 07:48] LABS: Prothrombin Time 10.4 sec (9.0-12.0)
--- NOTE | 2017-06-02 07:50 | CT ---
EXAMINATION TYPE: CT brain wo con DATE OF EXAM: 06/02/2017 COMPARISON: May 31, 2017 HISTORY: confusion, bilateral leg numbness CT DLP: [address] of the brain was performed. The ventricles, basal cisterns and sulci overlying the cerebral convexities demonstrate mild enlargem ent. There is no evidence for intracranial hemorrhage or sulcal effacement. There is decreased attenuation about the periventricular white matter and deep white matter of both c erebral hemispheres, compatible with chronic small vessel ischemia. Differential diagnosis does inclu de demyelination. No mass effects are seen.No midline shift. Osseous calvarium is intact. If symptoms persist consider MRI. IMPRESSION: 1. Age related atrophic and chronic small vessel ischemic change without acute intracranial process s een at this time.
[2017-06-02 08:02] LABS: Basophils # (A) 0.1 k/uL (0-0.2); Basophils % (A) 1 %; CH 30.4; Eosinophils # (A) 0.3 k/uL (0-0.7); Eosinophils % (A) 3 %; HCT 41.6 % (34.0-46.0); HDW 2.14; HGB 13.6 gm/dL (11.4-16.0); Luc % (Auto) 3; Lymphocytes # (A) 1.6 k/uL (1.0-4.8); Lymphocytes % (A) 21 %; MCH 31.2 pg (25.0-35.0); MCHC 32.7 g/dL (31.0-37.0); Monocytes # (A) 0.7 k/uL (0-1.0); Monocytes % (A) 9 %; Neutrophils # (A) 4.8 k/uL (1.3-7.7); Neutrophils % (A) 64 %; RBC 4.37 m/uL (3.80-5.40); RDW 13.1 % (11.5-15.5); WBC 7.6 k/uL (3.8-10.6); WBC (Perox) 7.67
[2017-06-02 08:03] LABS: MCV 95.2 fL (80.0-100.0)
[2017-06-02] MEDS: CHOLECALCIFEROL 1,000 UNIT TAB PO SCH (08:41)
[2017-06-02] MEDS: amLODIPine 5 MG TAB PO SCH ×2 (08:41→21:31)
[2017-06-02] MEDS: ASPIRIN 325 MG TAB PO SCH (08:41)
[2017-06-02] MEDS: AMOXIC-POT CLAV 875-125MG 1 EACH TAB PO SCH ×2 (08:41→21:31)
[2017-06-02] MEDS: VIT A,C & E-LUTEIN-MINERALS 1 EACH TAB PO SCH (08:42)
[2017-06-02] MEDS: LINAGLIPTIN 5 MG TABLET PO SCH (08:42)
[2017-06-02] MEDS: CLOPIDOGREL 75 MG TAB PO SCH (08:42)
--- NOTE | 2017-06-02 09:16 | CT ---
EXAMINATION TYPE: CT angio head neck DATE OF EXAM: 06/02/2017 HISTORY: Neuro deficits, new onset bilateral lower extremity weakness and confusion. COMPARISON: CTA scan from [address] DLP: 425 mGycm. Automated Exposure Control for Dose Reduction was Utilized. TECHNIQUE: CTA scan of the head and neck are performed with IV Contrast, patient injected with 65 mL of Omnipaque 350, axial images are obtained, coronal and sagittal reformatted images are reviewed. T hree-D reconstructed images are created on an independent workstation and reviewed. FINDINGS: Carotid/Vascular Structures: Mild plaque in visualized aortic arch is seen. There is normal three-ves palomo origin from aortic arch redemonstrated. There is focal moderate to severe calcified plaque at [place] of the right subclavian artery redemonstrated. No significant greater than 50% stenosis is seen i n review of the postprocessing Vitrea and raw data images. The right common carotid artery shows no significant focal plaque or stenosis. There is redemonstrati on of mild to moderate predominantly calcified plaque at right carotid bulb extending into proximal i nternal carotid artery. There is tortuous course to the proximal internal carotid artery. No signific ant stenosis is present. There is severe concentric calcified plaque supraclinoid segment of distal r ight internal carotid artery. Significant stenosis is felt present seen best raw data images 108 thro ugh 92. There is focal noncalcified plaque causing significant stenosis at origin of right external c arotid artery redemonstrated. There is no significant plaque or stenosis in the left common carotid artery. There is mild to modera te anomaly calcified plaque at left carotid bulb extending into proximal internal carotid artery with out significant stenosis identified. Severe concentric calcified plaque supraclinoid segment distal i nternal carotid artery is seen causing suspected significant stenosis on raw data images 107 through 92. There is patent left external carotid artery without significant plaque or stenosis. There are codominant vertebral arteries patent to the basilar junction. No significant stenosis or pl aque is seen. There is visualization of persistent posterior communicating artery on the left. There is hypoplastic right posterior communicating artery seen. No significant stenosis or aneurysmal change is seen in the posterior circulation. Images of the anterior circulation show hypoplastic ant erior communicating artery. No significant stenosis or aneurysmal change is identified. Other: There is slight grade 1 retrolisthesis of C5 on C6 with mild to moderate disc space narrowing at this level appreciated. IMPRESSION: 1. No aneurysmal change at level of the [place] of [place]. 2. No significant focal stenosis at level of carotid bulbs and proximal internal carotid arteries. Th ere is redemonstration of severe calcified plaque supraclinoid segment distal internal carotid arteri es bilaterally likely causing bilateral significant stenosis at a nontreatable location or level. 3. Overall no significant change from prior.
[2017-06-02] MEDS: METOPROLOL TARTRATE 50 MG TAB PO SCH ×2 (09:55→21:32)
[2017-06-02 11:48] LABS: Glucose,Whole Blood 120 mg/dL (75-99)
[2017-06-02] MEDS: LOSARTAN 50 MG TAB PO SCH (12:04)
--- NOTE | 2017-06-02 14:56 | P.PN ---
Subjective Progress Note Date: 06/02/17 Principal diagnosis: CVA, hyponatremia This is a pleasant 82-year-old female with history of hypertension. Presented with evidence of CVA. She continues to have right-sided numbness that is somewhat improved in her hand and stable in her face. This morning shortly after receiving her blood pressure medications, she complained of generalized numbness throughout her whole body. Computed tomography scan and CTA were completed that showed no changes from previous. She remains on amlodipine 5 mg by mouth twice a day, hydralazine 50 mg by mouth 3 times a day, metoprolol titrate 50 mg by mouth twice a day and losartan 100 mg by mouth daily. Her blood pressure is better controlled today. Return values were reviewed and show sodium of 132, potassium 4.3, BUN of 17 and creatinine 0.7. Her troponins have been negative. Objective - Vital Signs Vital signs: Vital Signs Temp 96.9 F L 06/02/17 04:00 Pulse 67 06/02/17 12:06 Resp 17 06/02/17 12:06 BP 116/53 06/02/17 12:06 Pulse Ox 98 06/02/17 12:06 Intake & Output 06/01/17 06/02/17 06/02/17 18:59 06:59 18:59 Intake Total 2311 400 520 Output Total 300 600 Balance 2010 400 -80 Weight 72.3 kg Intake: Intake, IV Titration 1600 100 400 Amount Sodium Chloride 0.9% 1, 1600 400 000 ml @ 100 mls/hr IV . Q10H [facility] Rx#:[id number] Sodium Chloride 0.9% 1, 100 000 ml @ 20 mls/hr IV . Q24H [facility] Rx#:[id number] Oral 711 300 120 Output: Urine 300 600 Other: Voiding Method Toilet Toilet Toilet # Voids 1 1 1 # Bowel Movements 0 - Exam PHYSICAL EXAMINATION: HEENT: Head is atraumatic, normocephalic. Pupils equal, round. Neck is supple. There is no elevated jugular venous pressure. HEART EXAMINATION: Heart sounds regular, S1 and S2 with a systolic murmur. CHEST EXAMINATION: Lungs are clear to auscultation and precussion. No chest wall tenderness is noted on palpation or with deep breathing. ABDOMEN: Soft, nontender. Bowel sounds are heard. No organomegaly noted. EXTREMITIES: 2+ peripheral pulses with no evidence of peripheral edema and no calf tenderness noted. NEUROLOGIC patient is awake, alert and oriented x3. . - Labs CBC & Chem 7: 06/02/17 05:32 06/02/17 07:48 Labs: Abnormal Lab Results - Last 24 Hours (Table) 06/01/17 06/01/17 06/01/17 Range/Units 16:49 16:54 20:14 Sodium (137-145) mmol/L Glucose (74-99) mg/dL POC Glucose (mg/dL) 173 H 125 H 120 H (75-99) mg/dL 06/02/17 06/02/17 06/02/17 Range/Units 05:32 06:09 07:19 Sodium 132 L (137-145) mmol/L Glucose 130 H (74-99) mg/dL POC Glucose (mg/dL) 137 H 141 H (75-99) mg/dL 06/02/17 06/02/17 Range/Units 07:48 11:23 Sodium (137-145) mmol/L Glucose 152 H (74-99) mg/dL POC Glucose (mg/dL) 120 H (75-99) mg/dL Assessment and Plan Plan: Assessment and plan #1 CVA #2 hypertension #3 hyperlipidemia #4 diabetes mellitus 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 We'll continue to follow her blood pressure and sodium. Depending on her progress further recommendations will be made. KEG RAISER note has been reviewed, I agree with a documented findings and plan of care. Patient was seen and examined.
[2017-06-02] MEDS ORDERED: hydrALAZINE HCL 25 MG TAB PO SCH (16:00)
--- NOTE | 2017-06-02 16:51 | PN ---
PROGRESS NOTE DATE OF SERVICE: 06/02/2007 I am covering for Dr. Anthony Cameron. This 82-year-old woman was admitted with numbness and weakness of the right arm and right leg. MRI showed acute ischemic infarct on the left side, including a 9 mm acute ischemic area in the thalamus. The patient is being monitored closely. Patient had numbness and weakness of the left side today. The patient is closely monitored at this time. CT angiography was also done this morning which showed no aneurysmal changes and no significant focal stenosis; overall no significant changes from previously. Severe calcified plaque was noted. Bilateral stenosis and severe stenosis was also noted. A CT of the brain noted age-related atrophic changes. The neck MRA was done previously which showed no aneurysmal changes, no significant focal stenosis in internal carotid arteries bilaterally. Focal stenosis at the origin of the right external carotid was also noted. Past medical history reviewed. The patient also had fluctuation of blood pressure. Cardiology is following the patient closely. REVIEW OF SYSTEMS: CARDIOVASCULAR SYSTEM: No angina, palpitations. RESPIRATORY SYSTEM: As mentioned earlier. GI: As mentioned earlier. : No dysuria or retention. NERVOUS SYSTEM: As mentioned earlier. CURRENT MEDICATIONS: Current medications are reviewed and include: 1. Xanax 0.25 daily. 2. Norvasc 5 mg b.i.d. 3. Augmentin 875 mg p.o. b.i.d. 4. Aspirin 325 mg. 5. Lipitor 40 mg daily. 6. Vitamin D3 1000 units. 7. Plavix 75 mg p.o. daily. 8. Zetia 10 mg at bedtime. 9. Apresoline 50 mg t.i.d. 10.Synthroid 88 mcg p.o. daily. 11.Tradjenta 5 mg p.o. daily. 12.Cozaar 100 mg p.o. daily. 13.Glucophage 500 mg p.o. b.i.d. 14.Multivitamins 1 p.o. daily. 15.Nitrostat 0.4 sublingually p.r.n. PHYSICAL EXAMINATION: Patient is alert and oriented x2. Pulse 75, blood pressure 121/74, respiratory rate 16, temperature normal, pulse ox 99% on 2 L. HEENT: Conjunctivae normal. Oral mucosa moist. NECK: No jugular venous distention. No carotid bruit. No lymph node enlargement. CARDIOVASCULAR: S1, S2 muffled. No S3. No S4. RESPIRATORY SYSTEM: Breath sounds diminished at the bases. A few scattered rhonchi. No crackles. ABDOMEN: Soft, nontender. No mass palpable. LEGS: No edema. No swelling. NERVOUS SYSTEM: Higher functions as mentioned earlier. Patient degeneration. Moves all 4 limbs. Right upper and lower limbs are significantly weak compared to the left; about 4 power compared to 4+. SKIN: No ulcer, rash, bleeding. LYMPHATICS: No lymph node palpable in neck, axillae or groin. LABS: WBC 7.6, hemoglobin 13.6. Sodium is 132. Accu-Cheks are noted. ASSESSMENT: 1. Acute cerebrovascular accident causing right-sided hemiplegia caused by 9 mm acute ischemia on the left thalamus. 2. Hypertensive urgency, present on admission. 3. Accelerated labile hypertension. 4. History of coronary artery disease and stent and myocardial infarction. 5. Blindness. 6. Sinusitis. 7. History of hypothyroidism. 8. Hypertension. 9. Hyperlipidemia. 10.History of cerebrovascular accident, transient ischemic attack. DISCUSSION AND RECOMMENDATIONS: I recommend to continue current medication, continue with monitoring, continue with symptomatic treatment. Monitor blood pressure closely. The patient is currently on hydralazine per Cardiology. Antiplatelet agents. DVT prophylaxis. Monitor blood sugars closely. Lipid panel is within normal limits. Further recommendations to follow. PT/OT evaluation and possible rehab with Dr. Landaverde. Repeat labs will be ordered. MMLIYAL / JULIANN: [id number] / MTDD
[2017-06-02 16:56] LABS: Glucose,Whole Blood 111 mg/dL (75-99)
[2017-06-02 21:10] LABS: Glucose,Whole Blood 123 mg/dL (75-99)
[2017-06-02] MEDS: EZETIMIBE 10 MG TAB PO SCH (21:32)
[2017-06-02] MEDS: ATORVASTATIN 40 MG TAB PO SCH (21:32)
[2017-06-02] MEDS: HEPARIN SODIUM,PORCINE 5,000 UNIT/ML 1 ML VIAL SQ SCH (21:54)
--- NOTE | 2017-06-02 21:55 | P.PN ---
Subjective Progress Note Date: 06/02/17 Principal diagnosis: CVA Neurology is following on an 82-year-old female for CVA. Patient was brought to the emergency room with complaints of numbness and weakness in her right side. Patient woke up with no symptoms early in the morning 2 days ago. Patient denied having any neurological symptoms when she went to sleep. Patient was already on aspirin and Plavix at home due to history of coronary stent placement. CT scan of the brain was done which showed small vessel ischemic changes. Carotid Doppler showed 50-69% stenosis involving the bilateral carotid bulbs. CBC was normal except for mild leukocytosis. CMP was normal except for hyponatremia. Cardiac enzymes were reviewed and showed a slightly elevated CPK and CK-MB but her troponin was normal. Patient was admitted for further workup. Patient did have an MRI of the brain which noted a 9 mm area of acute ischemia within the left thalamus. Degenerative and extensive white matter changes which were nonspecific but most typical of remote microvascular ischemia were noted. Demyelination was not excluded. Thickening along the posterolateral margin of the left lobe is stable from previous. MR angiogram noted no aneurysmal change or significant focal stenosis at the level of the [place]. No significant focal stenosis in common or internal carotid arteries bilaterally. However, significant focal stenosis at the origin of the right external carotid artery noted an estimated at 90-95%. Interval update: June 02, 2017 Patient had a code stroke called on her this morning. Patient developed left- sided deficits in both the upper and lower extremity. Repeat CT angiogram was negative for any changes compared to CT angiogram approximately 2 days ago. Patient was monitored and per patient has returned to baseline with guard to her left-sided deficits. patient's EEG was normal/unremarkable. At contact, the patient was sitting in a bedside chair, alert and oriented 3, no acute distress. Family was at the bedside. Objective - Vital Signs Vital signs: Vital Signs Temp 98 F 06/02/17 16:33 Pulse 68 06/02/17 16:33 Resp 17 06/02/17 16:33 BP 143/66 06/02/17 16:33 Pulse Ox 95 06/02/17 16:33 Intake & Output 06/02/17 06/02/17 06/03/17 06:59 18:59 06:59 Intake Total 400 760 Output Total 600 Balance 400 160 Weight 72.3 kg Intake: Intake, IV Titration 100 400 Amount Sodium Chloride 0.9% 1, 400 000 ml @ 100 mls/hr IV . Q10H [facility] Rx#:[id number] Sodium Chloride 0.9% 1, 100 000 ml @ 20 mls/hr IV . Q24H [facility] Rx#:[id number] Oral 300 360 Output: Urine 600 Other: Voiding Method Toilet Toilet # Voids 1 1 # Bowel Movements 0 - Exam HEENT: Normocephalic, atraumatic, no facial asymmetry noted. Neck: Supple with no masses felt. Cardiovascular: Regular rate and rhythm. Abdomen: Nontender, nondistended, extremity showed no edema or clubbing. Neurological exam: Patient is alert, where and oriented 3, speech and language are normal, strength is 4/5 on the right and 5/5 on the left. Pronator drift present on the right. Sensory exam showed diminished light touch on the right face compared to left. No facial weakness was observed. Dysdiadochokinesia is present on the right side compared to left. No tremor or seizure-like activity noted. - Labs CBC & Chem 7: 06/02/17 05:32 06/02/17 07:48 Labs: Abnormal Lab Results - Last 24 Hours (Table) 06/02/17 06/02/17 06/02/17 Range/Units 05:32 06:09 07:19 Sodium 132 L (137-145) mmol/L Glucose 130 H (74-99) mg/dL POC Glucose (mg/dL) 137 H 141 H (75-99) mg/dL 06/02/17 06/02/17 06/02/17 Range/Units 07:48 11:23 16:22 Sodium (137-145) mmol/L Glucose 152 H (74-99) mg/dL POC Glucose (mg/dL) 120 H 111 H (75-99) mg/dL 06/02/17 Range/Units 21:02 Sodium (137-145) mmol/L Glucose (74-99) mg/dL POC Glucose (mg/dL) 123 H (75-99) mg/dL Assessment and Plan (1) Cerebrovascular accident Status: Acute (2) Hyponatremia Status: Acute Plan: 1. Acute ischemic stroke 2. Right hemiparesis, right-sided sensory deficit 3. Carotid stenosis Patient does appear to have suffered an acute ischemic stroke. CT of the brain noted no acute intracranial abnormalities. Patient is on aspirin and Plavix at home. She will maintain these medications. MRI of the brain has a noted 9 mm area of acute ischemia within the left thalamus. MRA angiogram noted significant focal stenosis at the origin of the right external carotid artery estimated at 90-95%. Vascular is on consult. serum homocysteine level was normal. EEG was normal. continue speech, PT, OT. Continue neuro checks per existing order. Continue aspirin, Plavix, Lipitor at existing dose and frequency at discharge as well. Status: neurology will continue to follow on an as-needed basis, from a neurological standpoint the patient can be cleared for transfer to rehabilitation facility. Patient should be advised to contact our office within 10 business days for a follow-up in our office. I discussed the patient's pertinent medical information with Dr. Apodaca. He agrees with the plan of care as implemented.
[2017-06-03] MEDS: ALPRAZolam 0.25 MG TAB PO PRN (00:07)
[2017-06-03 05:58] LABS: Glucose,Whole Blood 114 mg/dL (75-99)
[2017-06-03 06:28] LABS: Basophils # (A) 0.1 k/uL (0-0.2); Basophils % (A) 1 %; CH 30.4; CHCM 32.3; Eosinophils # (A) 0.3 k/uL (0-0.7); Eosinophils % (A) 3 %; HCT 39.3 % (34.0-46.0); HDW 2.11; HGB 12.8 gm/dL (11.4-16.0); Luc # (Auto) 0.23; Luc % (Auto) 3; Lymphocytes # (A) 1.8 k/uL (1.0-4.8); Lymphocytes % (A) 23 %; MCH 30.7 pg (25.0-35.0); MCHC 32.5 g/dL (31.0-37.0); MCV 94.5 fL (80.0-100.0); Mean Platelet Volume 6.6; Monocytes # (A) 0.6 k/uL (0-1.0); Monocytes % (A) 7 %; Neutrophils # (A) 5.1 k/uL (1.3-7.7); Neutrophils % (A) 63 %; RBC 4.16 m/uL (3.80-5.40); RDW 13.2 % (11.5-15.5); WBC 8.1 k/uL (3.8-10.6)
[2017-06-03] MEDS: INSULIN LISPRO (humaLOG) 300 UNIT/3 ML VIAL SQ SCH ×4 (06:38→21:40)
[2017-06-03 06:46] LABS: Anion Gap 11 mmol/L; Blood Urea Nitrogen 17 mg/dL (7-17); Calcium 8.3 mg/dL (8.4-10.2); Carbon Dioxide 19 mmol/L (22-30); Chloride 98 mmol/L (98-107); Glucose 117 mg/dL (74-99); Non-African American GFR(MDRD) >60 (>60 ml/min/1.73 sqM); Potassium 4.5 mmol/L (3.5-5.1); Sodium 128 mmol/L (137-145)
[2017-06-03] MEDS: LEVOTHYROXINE 88 MCG TAB PO SCH (06:46)
[2017-06-03] MEDS: metFORMIN 500 MG TAB PO SCH ×2 (07:19→17:39)
[2017-06-03] MEDS: AMOXIC-POT CLAV 875-125MG 1 EACH TAB PO SCH ×2 (08:27→19:54)
[2017-06-03] MEDS: CHOLECALCIFEROL 1,000 UNIT TAB PO SCH (08:29)
[2017-06-03] MEDS: CLOPIDOGREL 75 MG TAB PO SCH (08:29)
[2017-06-03] MEDS: amLODIPine 5 MG TAB PO SCH ×2 (08:29→19:54)
[2017-06-03] MEDS: ASPIRIN 325 MG TAB PO SCH (08:29)
[2017-06-03] MEDS: HEPARIN SODIUM,PORCINE 5,000 UNIT/ML 1 ML VIAL SQ SCH ×2 (08:29→19:54)
[2017-06-03] MEDS: hydrALAZINE HCL 50 MG TAB PO SCH ×3 (08:30→21:41)
[2017-06-03] MEDS: LINAGLIPTIN 5 MG TABLET PO SCH (08:30)
[2017-06-03] MEDS: LOSARTAN 50 MG TAB PO SCH (08:31)
[2017-06-03] MEDS: METOPROLOL TARTRATE 50 MG TAB PO SCH ×2 (08:32→19:54)
[2017-06-03] MEDS: VIT A,C & E-LUTEIN-MINERALS 1 EACH TAB PO SCH (08:44)
[2017-06-03 11:59] LABS: Glucose,Whole Blood 110 mg/dL (75-99)
[2017-06-03] MEDS: FOLIC ACID 1 MG TAB PO SCH (12:03)
[2017-06-03] MEDS: THIAMINE 100 MG TAB PO SCH (12:04)
--- NOTE | 2017-06-03 13:16 | CONS ---
CONSULTATION This patient was seen in follow up. This patient is a 82-year-old, pleasant female, patient came to the ER. Admitted with a history of numbness and weakness in right lower extremity. The patient had a stroke workup including carotid ultrasound which showed 50-69% stenosis. CTA of the brain was done, which showed small vessel ischemia changes and an MRI of the brain which noted a 9 mm area of acute ischemic changes within the left thalamus. The patient had CTA of both carotids showed no significant focal stenosis of the origin of the right external carotid artery noted and also patient had which showed severe calcified plaque at the supraclinoid level bilaterally and no critical stenosis noted of the proximal internal and common carotid artery. EXAMINATION: Patient was seen in her room. She is lying comfortably. She still has some weakness of the right lower extremity. 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 NECK: Supple. No bruit appreciated. CHEST: Clear to auscultation. ABDOMEN: Soft. Femoral pulses are present. At this point, we have discussed with the son and they do not want to proceed for any major surgical intervention and stenosis of carotid artery and supraclinoid area is non treatable location and we discussed about transferring to tertiary center for possible angioplasty for intervention, neurologist. Son they do not want to proceed for any major surgical intervention. This patient needs to continue with physical therapy, antiplatelet therapy. We will follow with you. Thank you very much for the consultation. DILMA / JULIANN: [id number] /
--- NOTE | 2017-06-03 13:28 | P.PN ---
Subjective Progress Note Date: 06/03/17 She continues to have numbness on the right side with weakness but overall feels better. She walked today and she denies any chest discomfort or syncope. On the monitor she is in sinus mechanism with no evidence of tachycardia or bradycardia . Objective - Vital Signs Vital signs: Vital Signs Temp 97.3 F L 06/03/17 12:00 Pulse 74 06/03/17 12:00 Resp 18 06/03/17 12:00 BP 140/62 06/03/17 12:00 Pulse Ox 97 06/03/17 12:00 Intake & Output 06/02/17 06/03/17 06/03/17 18:59 06:59 18:59 Intake Total 760 250 480 Output Total 600 300 Balance 160 -50 480 Weight 73.1 kg Intake: Intake, IV Titration 400 Amount Sodium Chloride 0.9% 1, 400 000 ml @ 100 mls/hr IV . Q10H [facility] Rx#:[id number] Oral 360 250 480 Output: Urine 600 300 Other: Voiding Method Toilet Toilet # Voids 1 2 1 # Bowel Movements 0 0 0 - Exam Head: Normocephalic. Eyes: Sclerae nonicteric . Neck: Good carotid upstroke, no bruit, no jugular venous distention. Lungs: Clear to auscultation. Heart: Regular rate and rhythm, S1-S2, no S3, systolic murmur. Abdomen: Soft nontender, positive bowel sounds no organomegaly. Extremities: No edema, intact distal pulses. - Labs CBC & Chem 7: 06/03/17 05:32 06/03/17 05:30 Labs: Abnormal Lab Results - Last 24 Hours (Table) 06/02/17 06/02/17 06/03/17 Range/Units 16:22 21:02 05:30 Sodium 128 L (137-145) mmol/L Carbon Dioxide 19 L (22-30) mmol/L Glucose 117 H (74-99) mg/dL POC Glucose (mg/dL) 111 H 123 H (75-99) mg/dL Calcium 8.3 L (8.4-10.2) mg/dL 06/03/17 06/03/17 Range/Units 05:56 11:30 Sodium (137-145) mmol/L Carbon Dioxide (22-30) mmol/L Glucose (74-99) mg/dL POC Glucose (mg/dL) 114 H 110 H (75-99) mg/dL Calcium (8.4-10.2) mg/dL Assessment and Plan Plan: Impression: 1. CVA. 2. Hypertension. 3. Diabetes. 4. Hyperlipidemia. We will continue on the present medical regimen, follow her blood pressure closely and depending on her progress further recommendations will be made. We will follow her sodium closely.
[2017-06-03 17:14] LABS: Glucose,Whole Blood 144 mg/dL (75-99)
--- NOTE | 2017-06-03 19:13 | PN ---
PROGRESS NOTE DATE OF SERVICE: 06/03/2017 I am covering for Dr. Anthony Cameron. INTERVAL HISTORY: This 82-year-old woman who was admitted with significant weakness and CVA, features of left thalamus also had left-sided symptoms yesterday. The patient also had a CT angiography and neurology seen the patient and Dr. Lainez from vascular surgery also seen the patient. The patient had severe calcified plaques at the supraclinoid level bilaterally with no critical stenosis noted, in the proximal internal common carotid artery. The possibility of tertiary care referral also discussed by Dr. Lainez with the family who wanted to continue conservative line of treatment because of the extremely guarded prognosis and nature of the lesion at this time. PAST MEDICAL HISTORY: Reviewed. REVIEW OF SYSTEMS: Cardiovascular: No angina or palpitations. Respirations: As mentioned earlier. GI: As mentioned earlier. : No dysuria. Central nervous system: As mentioned earlier. CURRENT MEDICATIONS ARE: Reviewed and include: 1. Xanax 0.5 t.i.d. daily p.r.n. 2. Norvasc 5 mg p.o. b.i.d. 3. Augmentin 875 mg p.o. b.i.d. 4. Aspirin 320 mg daily. 5. Lipitor 40 mg q.h.s. 6. Vitamin D3 1000 daily. 7. Plavix 75 mg b.i.d. 8. Zetia 10 mg q.h.s. 9. Folic acid. 10.Heparin subcu 5000 subcu b.i.d. 11.Apresoline. 12.Synthroid 18 mcg daily. 13.Tradjenta. 14.Glucophage 500 mg daily. 15.I-Ronda. 16.Nitrostat. 17.Vitamin B1. PHYSICAL EXAM: Patient is alert, oriented x2. Pulse 74. Blood pressure 140/68, respiration 18 , temperature 97.3, pulse ox 97% on room air. HEENT conjunctivae normal. Oral mucosa moist. Neck is no jugular venous distention. No carotid bruit. No thyroid enlargement. Cardiovascular system: S1, S2 muffled. Respirations: Diminished in the bases. Scattered rhonchi. No crackles. ABDOMEN: Soft, nontender. No mass. Legs no edema, no swelling. central nervous system: Diffuse weakness of the right side. LABS: CBC within normal limits, sodium 128. ASSESSMENT: 1. 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 2. Hypertensive urgency. Present on admission. 3. Weakness of the left side possibly caused by transient ischemic attack. 4. Accelerated labile hypertension. 5. History of coronary artery disease and myocardial infarction. 6. Blindness. 7. Bilateral supraclinoid atherosclerotic plaque. 9. Hypothyroidism. 10.Hypertension. 11.Hyperlipidemia. 12.History of cerebrovascular accident, transient ischemic attack. 13.NO CODE, NO CPR, NO VENT. RECOMMENDATIONS AND DISCUSSION: In this 82 -year-old who presented with multiple complex medical issues. We will monitor the patient closely. Continue the current management and continue symptomatic treatment. Continue with antiplatelet agents. Continue the Zetia. Continue the rest of the medications. DVT prophylaxis. Otherwise, PT/OT evaluation. Possible ECF rehab. Guarded prognosis because of multiple complex medical issues. Discussed with family at length and discussed with Dr. Lainez. As mentioned earlier prognosis guarded. Further recommendations to follow. MMLIYAL / IJN: [id number] / TOMI
[2017-06-03] MEDS: ATORVASTATIN 40 MG TAB PO SCH (19:54)
[2017-06-03] MEDS: EZETIMIBE 10 MG TAB PO SCH (19:54)
[2017-06-03 21:02] LABS: Glucose,Whole Blood 141 mg/dL (75-99)
[2017-06-04 06:05] LABS: Glucose,Whole Blood 128 mg/dL (75-99)
[2017-06-04] MEDS: INSULIN LISPRO (humaLOG) 300 UNIT/3 ML VIAL SQ SCH ×4 (06:08→21:23)
[2017-06-04 06:30] LABS: Basophils # (A) 0.1 k/uL (0-0.2); Basophils % (A) 1 %; CH 31.6; CHCM 34.2; Eosinophils # (A) 0.3 k/uL (0-0.7); Eosinophils % (A) 3 %; HCT 37.4 % (34.0-46.0); HDW 2.12; HGB 12.3 gm/dL (11.4-16.0); Luc # (Auto) 0.18; Luc % (Auto) 2; Lymphocytes # (A) 1.8 k/uL (1.0-4.8); Lymphocytes % (A) 21 %; MCH 30.4 pg (25.0-35.0); MCHC 32.8 g/dL (31.0-37.0); MCV 92.8 fL (80.0-100.0); Mean Platelet Volume 7.4; Monocytes # (A) 0.6 k/uL (0-1.0); Monocytes % (A) 7 %; Neutrophils # (A) 5.8 k/uL (1.3-7.7); Neutrophils % (A) 66 %; RBC 4.03 m/uL (3.80-5.40); RDW 13.8 % (11.5-15.5); WBC 8.8 k/uL (3.8-10.6); WBC (Perox) 8.91
[2017-06-04] MEDS: LEVOTHYROXINE 88 MCG TAB PO SCH (06:38)
[2017-06-04 06:39] LABS: Anion Gap 11 mmol/L; Blood Urea Nitrogen 15 mg/dL (7-17); Calcium 8.8 mg/dL (8.4-10.2); Carbon Dioxide 20 mmol/L (22-30); Chloride 97 mmol/L (98-107); Glucose 135 mg/dL (74-99); Non-African American GFR(MDRD) >60 (>60 ml/min/1.73 sqM); Potassium 4.7 mmol/L (3.5-5.1); Sodium 128 mmol/L (137-145)
[2017-06-04] MEDS: metFORMIN 500 MG TAB PO SCH ×2 (07:04→17:34)
[2017-06-04] MEDS: AMOXIC-POT CLAV 875-125MG 1 EACH TAB PO SCH ×2 (09:18→21:33)
[2017-06-04] MEDS: amLODIPine 5 MG TAB PO SCH ×2 (09:18→21:32)
[2017-06-04] MEDS: DOCUSATE 100 MG CAP PO SCH ×2 (09:19→21:32)
[2017-06-04] MEDS: HEPARIN SODIUM,PORCINE 5,000 UNIT/ML 1 ML VIAL SQ SCH ×2 (09:19→21:33)
[2017-06-04] MEDS: CLOPIDOGREL 75 MG TAB PO SCH (09:19)
[2017-06-04] MEDS: CHOLECALCIFEROL 1,000 UNIT TAB PO SCH (09:19)
[2017-06-04] MEDS: ASPIRIN 325 MG TAB PO SCH (09:19)
[2017-06-04] MEDS: LOSARTAN 50 MG TAB PO SCH (09:20)
[2017-06-04] MEDS: LINAGLIPTIN 5 MG TABLET PO SCH (09:20)
[2017-06-04] MEDS: hydrALAZINE HCL 50 MG TAB PO SCH ×3 (09:20→21:32)
[2017-06-04] MEDS: METOPROLOL TARTRATE 50 MG TAB PO SCH ×2 (09:30→21:32)
[2017-06-04 11:53] LABS: Glucose,Whole Blood 85 mg/dL (75-99)
[2017-06-04] MEDS: THIAMINE 100 MG TAB PO SCH (12:16)
[2017-06-04] MEDS: FOLIC ACID 1 MG TAB PO SCH (12:16)
--- NOTE | 2017-06-04 12:17 | P.PN ---
Subjective Progress Note Date: 06/04/17 The patient presented with symptoms of right-sided weakness and numbness. She is feeling the same today although the weakness is slightly better. She walked down the hdez. She denies any symptoms of chest discomfort or dyspnea. She has no dizziness or palpitation or syncope. Her blood pressure is under good control. She has no symptoms of PND orthopnea or peripheral edema. She continues to be on amlodipine 5 mg twice a day, aspirin, Lipitor 40 mg daily , Plavix 75 mg daily, Zetia 10 mg daily, hydralazine 50 mg 3 times a day, metoprolol tartrate 50 mg twice a day, losartan 100 mg daily. Objective - Vital Signs Vital signs: Vital Signs Temp 97.3 F L 06/04/17 08:00 Pulse 75 06/04/17 08:00 Resp 18 06/04/17 08:00 BP 146/68 06/04/17 08:00 Pulse Ox 93 L 06/04/17 08:00 Intake & Output 06/03/17 06/04/17 06/04/17 18:59 06:59 18:59 Intake Total 720 236 Output Total 600 Balance 720 -600 236 Weight 72.8 kg Intake: Oral 720 236 Output: Urine 600 Other: Voiding Method Toilet # Voids 1 1 1 # Bowel Movements 0 1 - Exam Head: Normocephalic. Eyes: Sclerae nonicteric . Neck: Good carotid upstroke, no bruit, no jugular venous distention. Lungs: Clear to auscultation. Heart: Regular rate and rhythm, S1-S2, no S3, systolic murmur at the base. Abdomen: Soft nontender, positive bowel sounds no organomegaly. Extremities: No edema, intact distal pulses. - Labs CBC & Chem 7: 06/04/17 05:33 06/04/17 05:33 Labs: Abnormal Lab Results - Last 24 Hours (Table) 06/03/17 06/03/17 06/04/17 Range/Units 16:50 20:51 05:33 Sodium 128 L (137-145) mmol/L Chloride 97 L (98-107) mmol/L Carbon Dioxide 20 L (22-30) mmol/L Glucose 135 H (74-99) mg/dL POC Glucose (mg/dL) 144 H 141 H (75-99) mg/dL 06/04/17 Range/Units 05:57 Sodium (137-145) mmol/L Chloride (98-107) mmol/L Carbon Dioxide (22-30) mmol/L Glucose (74-99) mg/dL POC Glucose (mg/dL) 128 H (75-99) mg/dL Assessment and Plan Plan: Impression: 1. CVA 2. Hypertension 3. Diabetes 4. Hyperlipidemia Plan: We will continue the present therapy, increase her level of activity and depending on her blood pressure trend further recommendations will be made. The patient is being evaluated to be transferred to inpatient rehab. She will follow-up with Dr. Silva as an outpatient.
[2017-06-04 17:25] LABS: Glucose,Whole Blood 136 mg/dL (75-99)
--- NOTE | 2017-06-04 17:41 | PN ---
PROGRESS NOTE DATE OF SERVICE: 06/04/2017 I am covering for Dr. Anthony Cameron. This 82-year-old woman who was admitted with acute CVA involving the left thalamus also had weakness and numbness on the left side possibly caused by right-sided CVA and TIA. The left side is improving but right side is persistent with numbness and weakness. PT and OT is evaluating the patient. ECF rehab is being planned at this time. Patient also had significant plaque formation in the intracerebral arteries which is technically difficult to access per Vascular Surgery. Prognosis guarded and family opted for no intervention and no at this time. PAST MEDICAL HISTORY: Reviewed. REVIEW OF SYSTEMS: CARDIOVASCULAR: No angina. RESPIRATORY: As mentioned. GI: As mentioned. : As mentioned. NERVOUS SYSTEM: As mentioned earlier. CURRENT MEDICATIONS: Reviewed and include: 1. Xanax 0.5 daily. 2. Norvasc 5 mg p.o. b.i.d. 3. Augmentin b.i.d. 4. Aspirin 81 mg. 5. Lipitor 40 mg q.h.s. 6. Vitamin D. 7. Plavix 70 mg. 8. Colace. 9. Zetia 10 mg. 10.Heparin. 11.Apresoline. 12.Humalog. 13.Synthroid. 14.Tradjenta. 15.Lopressor. 16.Eye vitamin. EXAMINATION: Alert and oriented x2. Pulse 75, blood pressure 140/80, respirations 18, temperature 97.2, pulse ox 93% room air. HEENT: Conjunctivae normal. Oral mucosa moist. NECK: No jugular venous distention. No carotid bruit. No lymph node enlargement. CARDIOVASCULAR: S1, S2.No S3, no S4. RESPIRATORY: Breath sounds diminished at the bases. A few scattered rhonchi. No crackles. ABDOMEN: Soft, nontender. LEGS: No edema. NERVOUS SYSTEM: Right side significant weakness present. Left side no weakness. Otherwise also gait dysfunction present. LABS: CBC within normal limits. Sodium 128. ASSESSMENT: 1. Acute cerebrovascular accident causing the right-sided hemiplegia possibly acute ischemia in the left thalamus with cerebrovascular accident. 2. Hypertensive urgency, present on admission. 3. Weakness of the left side possibly caused by transient ischemic attack. 4. Accelerated labile hypertension. 5. History of coronary artery disease, myocardial infarction. 6. Bilateral supraclinoid atherosclerotic plaque. 7. Hypothyroidism. 8. Hypertension. 9. Hyperlipidemia. 10.NO CODE. RECOMMENDATIONS AND DISCUSSION: I recommend to continue current management, continue monitoring, continue symptomatic treatment. Otherwise at this time continue with antiplatelet agents and antihyperlipidemic agents. PT and OT evaluation. Possible ECF rehab. Discussed with family at length. compensation programs manager to follow regarding ECF rehab. Prognosis guarded. DILMA / CHULA: [id number] / MTDD
[2017-06-04 20:36] LABS: Glucose,Whole Blood 125 mg/dL (75-99)
[2017-06-04] MEDS: ATORVASTATIN 40 MG TAB PO SCH (21:32)
[2017-06-04] MEDS: EZETIMIBE 10 MG TAB PO SCH (21:32)
[2017-06-04] MEDS: ALPRAZolam 0.25 MG TAB PO PRN (23:41)
[2017-06-05 02:00] VITALS: RESP 16
[2017-06-05 06:10] LABS: Glucose,Whole Blood 139 mg/dL (75-99)
[2017-06-05] MEDS: LEVOTHYROXINE 88 MCG TAB PO SCH (06:10)
[2017-06-05] MEDS: INSULIN LISPRO (humaLOG) 300 UNIT/3 ML VIAL SQ SCH ×2 (06:10→12:16)
[2017-06-05] MEDS: metFORMIN 500 MG TAB PO SCH (06:10)
[2017-06-05 06:36] LABS: Basophils # (A) 0.1 k/uL (0-0.2); Basophils % (A) 1 %; CH 30.8; CHCM 33.3; Eosinophils # (A) 0.3 k/uL (0-0.7); Eosinophils % (A) 4 %; HCT 38.4 % (34.0-46.0); HDW 2.06; HGB 12.4 gm/dL (11.4-16.0); Luc # (Auto) 0.24; Luc % (Auto) 3; Lymphocytes # (A) 1.9 k/uL (1.0-4.8); Lymphocytes % (A) 24 %; MCH 30.1 pg (25.0-35.0); MCHC 32.4 g/dL (31.0-37.0); MCV 92.9 fL (80.0-100.0); Mean Platelet Volume 6.6; Monocytes # (A) 0.6 k/uL (0-1.0); Monocytes % (A) 8 %; Neutrophils # (A) 4.8 k/uL (1.3-7.7); Neutrophils % (A) 61 %; RBC 4.13 m/uL (3.80-5.40); RDW 13.1 % (11.5-15.5); WBC 7.9 k/uL (3.8-10.6); WBC (Perox) 7.75
[2017-06-05 06:53] LABS: Anion Gap 11 mmol/L; Blood Urea Nitrogen 14 mg/dL (7-17); Carbon Dioxide 21 mmol/L (22-30); Chloride 97 mmol/L (98-107); Glucose 121 mg/dL (74-99); Non-African American GFR(MDRD) >60 (>60 ml/min/1.73 sqM); Potassium 4.9 mmol/L (3.5-5.1); Sodium 129 mmol/L (137-145)
[2017-06-05] MEDS: AMOXIC-POT CLAV 875-125MG 1 EACH TAB PO SCH (08:27)
[2017-06-05] MEDS: CHOLECALCIFEROL 1,000 UNIT TAB PO SCH (08:27)
[2017-06-05] MEDS: ASPIRIN 325 MG TAB PO SCH (08:27)
[2017-06-05] MEDS: hydrALAZINE HCL 50 MG TAB PO SCH (08:28)
[2017-06-05] MEDS: METOPROLOL TARTRATE 50 MG TAB PO SCH (08:28)
[2017-06-05] MEDS: LOSARTAN 50 MG TAB PO SCH (08:28)
[2017-06-05] MEDS: CLOPIDOGREL 75 MG TAB PO SCH (08:28)
[2017-06-05] MEDS: LINAGLIPTIN 5 MG TABLET PO SCH (08:28)
[2017-06-05] MEDS: DOCUSATE 100 MG CAP PO SCH (08:28)
[2017-06-05] MEDS: amLODIPine 5 MG TAB PO SCH (08:28)
[2017-06-05] MEDS: HEPARIN SODIUM,PORCINE 5,000 UNIT/ML 1 ML VIAL SQ SCH (08:28)
[2017-06-05 09:26] VITALS: TEMP 97
--- NOTE | 2017-06-05 11:23 | P.DS ---
Providers Date of admission: 05/31/17 09:27 Attending physician: Anthony Cameron Consults: 05/31/17 09:27 Consult Physician Urgent Consulting Provider: Klaudia Apodaca Consult Reason/Comments: cva Do you want consulting provider notified?: Yes 05/31/17 10:25 Consult Physician Urgent Consulting Provider: Clayton Short Consult Reason/Comments: hypertension Do you want consulting provider notified?: Yes 06/01/17 14:53 Consult Physician Routine Consulting Provider: Dylan Landaverde Consult Reason/Comments: inpatient rehab Do you want consulting provider notified?: Yes 06/02/17 18:45 Consult Physician Routine Consulting Provider: Corey Lainez Consult Reason/Comments: carotid stenosis Do you want consulting provider notified?: Yes Primary care physician: Anthony Cameron Hospital Course: 82-year-old woman with a past medical history multiple medical problems was admitted with weakness of the right side of body caused by left thalamic infarct. He isn't was seen by Dr. Rashmi Cameron in the outpatient setting. Patient treated symptomatically. Patient also had some weakness of the left side of the body. The vascular study showed up plaques in the intracranial arteries. Patient is not a candidate for any intervention per Dr. Lainez and family opted not for any interventions. Patient was also seen by neurology. The family also did not want invasive evaluations. Patient is stabilized. Patient be discharged in a stable pressure the guarded prognosis to either [facility] for inpatient rehab or ECF rehab at this time. Total intake date time taken 35 minutes. On exam vitals are stable. Cardio S1 and S2 normal. No system minimal weakness on the right side present. Gait ataxia present. Chest clear to auscultation. Abdomen soft nontender. Final diagnosis 1. Acute CVI causing right-sided weakness hemiplegia Cosper acute ischemia of the left thalamus and CVA. 2. Hypertensive urgency present on admission. 3. Weakness of the left side possibly TIA. 4. Accelerated labile hypertension. 5. History of CAD myocardial infarctions. 6. Bilateral supraclinoid up respirator plaque. 7. Hypothyroidism. 8. Hypertension. 9. Hyperlipidemia 10. No code Plan - Discharge Summary New Discharge Prescriptions: New amLODIPine [Norvasc] 5 mg PO BID tab Atorvastatin [Lipitor] 40 mg PO HS tab Docusate [Colace] 100 mg PO BID cap Folic Acid 1 mg PO DAILY@1200 tab hydrALAZINE HCL [Apresoline] 50 mg PO TID tab INSULIN LISPRO (HumaLOG) [humaLOG] 0 unit SQ ACHS #1 vial Losartan [Cozaar] 100 mg PO DAILY tab Thiamine [Vitamin B-1] 100 mg PO DAILY@1200 tab Continue Ezetimibe [Zetia] 10 mg PO HS Nitroglycerin Sl Tabs [Nitrostat] 0.4 mg SUBLINGUAL Q5M PRN PRN Reason: Chest Pain Aspirin 81 mg PO HS@1800 Metoprolol Tartrate [Lopressor] 50 mg PO BID Clopidogrel [Plavix] 75 mg PO DAILY Vits A,C,E/Lutein/Minerals [Ocuvite with Lutein Tablet] 2 tab PO DAILY Cholecalciferol [Vitamin D3] 1,000 unit PO DAILY sitaGLIPtin PHOS/metFORMIN HCL [Janumet 50-500 mg Tablet] 1 tab PO BID Levothyroxine Sodium [Synthroid] 88 mcg PO DAILY ALPRAZolam [Xanax] 0.25 mg PO DAILY PRN #30 PRN Reason: Anxiety Discontinued Atorvastatin [Lipitor] 10 mg PO HS predniSONE 20 mg PO DAILY Hydrochlorothiazide [Hydrodiuril] 12.5 mg PO DAILY Olmesartan [Benicar] 20 mg PO DAILY Discharge Medication List Aspirin 81 mg PO HS@1800 01/21/14 [History] Clopidogrel [Plavix] 75 mg PO DAILY 01/21/14 [History] Ezetimibe [Zetia] 10 mg PO HS 01/21/14 [History] Metoprolol Tartrate [Lopressor] 50 mg PO BID 01/21/14 [History] Nitroglycerin Sl Tabs [Nitrostat] 0.4 mg SUBLINGUAL Q5M PRN 01/21/14 [History] Cholecalciferol [Vitamin D3] 1,000 unit PO DAILY 05/03/16 [History] Vits A,C,E/Lutein/Minerals [Ocuvite with Lutein Tablet] 2 tab PO DAILY 05/03/16 [History] Levothyroxine Sodium [Synthroid] 88 mcg PO DAILY 05/31/17 [History] sitaGLIPtin PHOS/metFORMIN HCL [Janumet 50-500 mg Tablet] 1 tab PO BID 05/31/17 [History] ALPRAZolam [Xanax] 0.25 mg PO DAILY PRN #30 06/05/17 [Rx] Atorvastatin [Lipitor] 40 mg PO HS tab 06/05/17 [Rx] Docusate [Colace] 100 mg PO BID cap 06/05/17 [Rx] Folic Acid 1 mg PO DAILY@1200 tab 06/05/17 [Rx] INSULIN LISPRO (HumaLOG) [humaLOG] 0 unit SQ ACHS #1 vial 06/05/17 [Rx] Losartan [Cozaar] 100 mg PO DAILY tab 06/05/17 [Rx] Thiamine [Vitamin B-1] 100 mg PO DAILY@1200 tab 06/05/17 [Rx] amLODIPine [Norvasc] 5 mg PO BID tab 06/05/17 [Rx] hydrALAZINE HCL [Apresoline] 50 mg PO TID tab 06/05/17 [Rx] Follow up Appointment(s)/Referral(s): Anthony Cameron MD [Primary Care Provider] - 1 Week (after dc from ECF) Klaudia Apodaca MD [STAFF PHYSICIAN] - 1 Week Activity/Diet/Wound Care/Special Instructions: ECF: confirm cardiology F/U apt. prior to dc DIet; Cardiac Activity: as tolerated cbc,bmp in 3 days Discharge Disposition: TRANSFER TO SNF/ECF
[2017-06-05] MEDS ORDERED: VIT A,C & E-LUTEIN-MINERALS 1 EACH TAB PO SCH (12:00)
[2017-06-05 12:07] LABS: Glucose,Whole Blood 106 mg/dL (75-99)
[2017-06-05] MEDS: FOLIC ACID 1 MG TAB PO SCH (12:13)
[2017-06-05] MEDS: THIAMINE 100 MG TAB PO SCH (12:13)
--- NOTE | 2017-06-05 12:48 | P.PN ---
Subjective Progress Note Date: 06/05/17 Principal diagnosis: CVA, hyponatremia This is a pleasant 82-year-old female with history of hypertension. Presented with evidence of CVA. She continues to have right-sided numbness that is somewhat improved in her hand and stable in her face. She remains on amlodipine 5 mg by mouth twice a day, hydralazine 50 mg by mouth 3 times a day, metoprolol titrate 50 mg by mouth twice a day and losartan 100 mg by mouth daily. Her blood pressure remains well-controlled. Return values were reviewed and show sodium of 129, potassium 4.9, BUN of 14 and creatinine 0.71. She is anticipating discharge to rehab. Objective - Vital Signs Vital signs: Vital Signs Temp 97 F L 06/05/17 08:00 Pulse 78 06/05/17 08:00 Resp 16 06/05/17 08:00 BP 140/62 06/05/17 08:00 Pulse Ox 96 06/05/17 08:00 Intake & Output 06/04/17 06/05/17 06/05/17 18:59 06:59 18:59 Intake Total 590 200 Balance 590 200 Weight 73 kg Intake: Oral 590 200 Other: Voiding Method Toilet # Voids 2 1 2 - Exam PHYSICAL EXAMINATION: HEENT: Head is atraumatic, normocephalic. Pupils equal, round. Neck is supple. There is no elevated jugular venous pressure. HEART EXAMINATION: Heart sounds regular, S1 and S2 with a systolic murmur. CHEST EXAMINATION: Lungs are clear to auscultation and precussion. No chest wall tenderness is noted on palpation or with deep breathing. ABDOMEN: Soft, nontender. Bowel sounds are heard. No organomegaly noted. EXTREMITIES: 2+ peripheral pulses with no evidence of peripheral edema and no calf tenderness noted. NEUROLOGIC patient is awake, alert and oriented x3. . - Labs CBC & Chem 7: 06/05/17 05:41 06/05/17 05:41 Labs: Abnormal Lab Results - Last 24 Hours (Table) 06/04/17 06/04/17 06/05/17 Range/Units 16:55 20:34 05:41 Sodium 129 L (137-145) mmol/L Chloride 97 L (98-107) mmol/L Carbon Dioxide 21 L (22-30) mmol/L Glucose 121 H (74-99) mg/dL POC Glucose (mg/dL) 136 H 125 H (75-99) mg/dL 06/05/17 06/05/17 Range/Units 06:09 11:55 Sodium (137-145) mmol/L Chloride (98-107) mmol/L Carbon Dioxide (22-30) mmol/L Glucose (74-99) mg/dL POC Glucose (mg/dL) 139 H 106 H (75-99) mg/dL Assessment and Plan Plan: Assessment and plan #1 CVA #2 hypertension #3 hyperlipidemia #4 diabetes mellitus From [employer] perspective, medications reviewed and will continue the same. We anticipate the patient will be discharged to rehab today. Follow-up with Dr. MATT Silva in the office. INFORMATION SECURITY SPECIALIST note has been reviewed, I agree with a documented findings and plan of care. Patient was seen and examined.
[2017-06-05 13:20] VITALS: BP 115/58; PULSE 74
--- NOTE | 2017-06-05 19:36 | EEG ---
ELECTROENCEPHALOGRAM REPORT DATE OF SERVICE: 06/01/2017. REASON FOR TESTING: Stroke. DESCRIPTION OF THE PROCEDURE: This EEG was performed using a 21 channel digital electroencephalograph, following international 10-20 system. DESCRIPTION OF THE RECORDING: From the beginning of the tracing, and with patient's eyes closed, the background rhythm was mostly consisting of 8 hertz alpha frequency in the posterior occipital leads. No obvious asymmetry is seen. Photic stimulation was performed with a minimal driving response seen. No pathological waves were elicited. Hyperventilation was not performed. Occasional movement artifacts are seen. The patient remains awake throughout the tracing. No epileptiform discharges were noticed. Her EKG lead showed a regular rate and rhythm. INTERPRETATION: This awake EEG can be considered within normal limits. There was no asymmetry seen. No epileptiform discharges were noticed. The absence of epileptiform discharges does not rule out the diagnosis of epilepsy, therefore clinical correlation is recommended. MMLIYAL / IJJayden: [id number] /
== END 2017-06-05 14:57 | DRG 65 ==
LOC: EC 06:40 → 6SEL 09:27
PROVIDERS: ADMIT Family Medicine; ATTEND Family Medicine
DX: I63.8 Other cerebral infarction (principal); G81.91 Hemiplegia, unspecified affecting right dominant side; E11.9 Type 2 diabetes mellitus without complications; E87.1 Hypo-osmolality and hyponatremia; I10 Essential (primary) hypertension; J32.9 Chronic sinusitis, unspecified; I65.21 Occlusion and stenosis of right carotid artery; R29.810 Facial weakness; I16.0 Hypertensive urgency; Z66 Do not resuscitate; I25.2 Old myocardial infarction; E03.9 Hypothyroidism, unspecified; E78.5 Hyperlipidemia, unspecified; M19.91 Primary osteoarthritis, unspecified site; H54.8 Legal blindness, as defined in USA; K21.9 Gastro-esophageal reflux disease without esophagitis; H35.30 Unspecified macular degeneration; F41.9 Anxiety disorder, unspecified; I25.10 Atherosclerotic heart disease of native coronary artery without angina pectoris; H91.90 Unspecified hearing loss, unspecified ear; G43.909 Migraine, unspecified, not intractable, without status migrainosus; R27.0 Ataxia, unspecified; K44.9 Diaphragmatic hernia without obstruction or gangrene; Z79.84 Long term (current) use of oral hypoglycemic drugs; Z79.02 Long term (current) use of antithrombotics/antiplatelets; Z79.82 Long term (current) use of aspirin; Z79.52 Long term (current) use of systemic steroids; Z79.899 Other long term (current) drug therapy; Z95.5 Presence of coronary angioplasty implant and graft; Z90.710 Acquired absence of both cervix and uterus; Z98.41 Cataract extraction status, right eye; Z91.048 Other nonmedicinal substance allergy status; Z82.49 Family history of ischemic heart disease and other diseases of the circulatory system
CPT/HCPCS: 36415; 70450; 70496; 70498; 70549; 70551; 71020; 80048; 80053; 80061; 82550; 82553; 82947; 83036; 83090; 84484; 85025; 85610; 85730; 93005; 93306; 93880; 95819; 96360; 96361; 99285

== ENCOUNTER → 2018-02-14 | Outpatient (CLI) | payer MEDICARE, BC ==
--- NOTE | 2018-02-14 15:02 | BD ---
EXAMINATION TYPE: Axial Bone Density DATE OF EXAM: 02/14/2018 COMPARISON: 2016 CLINICAL HISTORY: post menopausal Height: 4'10 08/29 Weight: 152 FRAX RISK QUESTIONS: Secondary Osteoporosis: 3. Menopause before 45: y RISK FACTORS HISTORY OF: Surgery to Spine/: L sp When: 2000 Active: n Diet low in dairy products/other sources of calcium: y Postmenopausal woman: y Lost more than 2 inches in height since high school: y Frequent falls: y Poor Health: y MEDICATIONS: Thyroid Medications: Which medication: Synthroid How Lon years Additional Medications: blood pressure, cholesterol,heart, diabetes 2 Additional History: EXAM MEASUREMENTS: Bone mineral densitometry was performed using the [employer] System. Bone mineral density about the R hip (g/cm2): 0.949 Bone mineral density about the L hip (g/cm2): 0.907 T Score values are as follows: -----R Neck: -0.6 -----L Neck: -0.9 -----R Total: 0.4 -----L Total: 0.4 Bone mineral density has: Decreased -4.6% since study of: 09/30/2015 Bone mineral density about the L Wrist (g/cm2): 0.597 T Score values are as follows: -----Dist. R+U: -1.4 -----Prox. R+U: -0.6 -----Radius total: -1.3 IMPRESSION: Osteopenia (T Score between -2.5 and -1). There is slightly increased risk of fracture and the patient may be considered for treatment. Re-Screen 2-5 years. NOTE: T-SCORE=SD OF THE YOUNG ADULT MEAN.
--- NOTE | 2018-02-15 14:12 | MM ---
Reason for exam: screening (asymptomatic). Last mammogram was performed 1 year and 4 months ago. History: Patient is postmenopausal. Family history of breast cancer in maternal aunt at age 50. Benign excisional biopsy of the left breast. Physical Findings: A clinical breast exam by your physician is recommended on an annual basis and results should be correlated with mammographic findings. MG 3D Screening Mammo W/Cad Bilateral CC and MLO view(s) were taken. Prior study comparison: October 03, 2016, bilateral MG 3d screening mammo w/cad. April 06, 2016, right breast MG 3d diag mammo w/cad RT. There are scattered fibroglandular densities. No significant changes when compared with prior studies. ASSESSMENT: Benign, BI-RAD 2 RECOMMENDATION: Routine screening mammogram of both breasts in 1 year.
== END | disposition home or self-care (01) ==
LOC: RADMAMWWP 13:46
PROVIDERS: ATTEND Family Medicine
DX: Z12.31 Encounter for screening mammogram for malignant neoplasm of breast (principal); M85.80 Other specified disorders of bone density and structure, unspecified site; Z78.0 Asymptomatic menopausal state
CPT/HCPCS: 77063; 77067; 77080

== ENCOUNTER 2018-04-28 08:12 | Inpatient (IN) | payer MEDICARE, BC ==
[2018-04-28] MEDS ORDERED: NITROGLYCERIN OINT 1 INCH/GM PACKET TOPICAL STA (08:40)
[2018-04-28] MEDS ORDERED: ASPIRIN 81 MG PO STA (08:40)
--- NOTE | 2018-04-28 08:43 | ED ---
General Adult HPI - General Chief complaint: Chest Pain Stated complaint: chest pain Time Seen by Provider: 04/28/18 08:15 Source: patient, RN notes reviewed Mode of arrival: wheelchair Limitations: no limitations - History of Present Illness Initial comments: This is an 83-year-old female who presents emergency department with past medical history significant for coronary artery disease and stent placement. Patient also has diabetes patient also has high blood pressure high cholesterol. Patient states she came in today because she started having chest pain approximately half an hour prior to arrival. Patient states the pain feels like something sitting on her chest. Patient denies any radiation of the pain. Patient denies any nausea or diaphoresis. Patient states she was short of breath when the pain was there. Patient states currently she is pain-free. Patient denies any lightheadedness dizziness or near syncopal episode. Patient denies any headache patient denies numbness weakness. Patient denies any abdominal pain. Patient denies any vomiting or diarrhea recently. Patient denies any recent fever chills or cough. Patient denies any back pain. Patient denies any leg swelling or calf tenderness. Patient denies any recent injury or trauma. - Related Data Home Medications Medication Instructions Recorded Confirmed Aspirin 81 mg PO HS@1800 01/21/14 05/31/17 Clopidogrel [Plavix] 75 mg PO DAILY 01/21/14 05/31/17 Ezetimibe [Zetia] 10 mg PO HS 01/21/14 05/31/17 Metoprolol Tartrate [Lopressor] 50 mg PO BID 01/21/14 05/31/17 Nitroglycerin Sl Tabs [Nitrostat] 0.4 mg SUBLINGUAL Q5M PRN 01/21/14 05/31/17 Cholecalciferol [Vitamin D3] 1,000 unit PO DAILY 05/03/16 05/31/17 Vits A,C,E/Lutein/Minerals 2 tab PO DAILY 05/03/16 05/31/17 [Ocuvite with Lutein Tablet] Levothyroxine Sodium [Synthroid] 88 mcg PO DAILY 05/31/17 05/31/17 sitaGLIPtin PHOS/metFORMIN HCL 1 tab PO BID 05/31/17 05/31/17 [Janumet 50-500 mg Tablet] Previous Rx's Medication Instructions Recorded ALPRAZolam [Xanax] 0.25 mg PO DAILY PRN #30 06/05/17 Atorvastatin [Lipitor] 40 mg PO HS tab 06/05/17 Docusate [Colace] 100 mg PO BID cap 06/05/17 Folic Acid 1 mg PO DAILY@1200 tab 06/05/17 INSULIN LISPRO (HumaLOG) [humaLOG] 0 unit SQ ACHS #1 vial 06/05/17 Losartan [Cozaar] 100 mg PO DAILY tab 06/05/17 Thiamine [Vitamin B-1] 100 mg PO DAILY@1200 tab 06/05/17 amLODIPine [Norvasc] 5 mg PO BID tab 06/05/17 hydrALAZINE HCL [Apresoline] 50 mg PO TID tab 06/05/17 Allergies Allergy/AdvReac Type Severity Reaction Status Date / Time PAPER TAPE AdvReac RED SKIN Uncoded 04/28/18 08:17 Review of Systems ROS Statement: Those systems with pertinent positive or pertinent negative responses have been documented in the HPI. ROS Other: All systems not noted in ROS Statement are negative. 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 Last Myocardial Infarction Date:: 11/2011 History of Any Multi-Drug Resistant Organisms: None Reported Past Surgical History: Back Surgery, Breast Surgery, Heart Catheterization With Stent, Hysterectomy, Orthopedic Surgery, Tubal Ligation Additional Past Surgical History / Comment(s): RIGHT EYE CATARACT REMOVAL, LASER EYE SURGERY BILATERALLY, "TUBES IN EYES NOW OUT", THYROIDECTOMY D/T NODULES, TEMPORAL ARTERY BX, L BREAST BENIGN BX, LOW BACK SURGERY, R SHOULDER ROTATOR CUFF REPAIR, CERVICAL PAIN INJECTIONS. Additional Past Anesthesia/Blood Transfusion Reaction / Comment(s): hard to wake up Date of Last Stent Placement:: 12/22/2011 Past Psychological History: Anxiety Smoking Status: Never smoker Past Alcohol Use History: None Reported Past Drug Use History: None Reported - Past Family History Mother Family Medical History: Myocardial Infarction ([place]) Additional Family Medical History / Comment(s): MOTHER OF A [place] AT THE AGE OF 57YRS. Brother(s) Family Medical History: Myocardial Infarction ([place]) Additional Family Medical History / Comment(s): BROTHER OF A [place] AT THE AGE OF 60YRS. Father Family Medical History: No Reported History Additional Family Medical History / Comment(s): FATHER LIVED TO BE 90YRS OLD. General Exam - General Exam Comments Initial Comments: GENERAL: Patient is well-developed and well-nourished. Patient is nontoxic and well- hydrated and is in mild distress. ENT: Neck is soft and supple. No significant lymphadenopathy is noted. Oropharynx is clear. Moist mucous membranes. Neck has full range of motion without eliciting any pain. EYES: The sclera were anicteric and conjunctiva were pink and moist. Extraocular movements were intact and pupils were equal round and reactive to light. Eyelids were unremarkable. PULMONARY: Unlabored respirations. Good breath sounds bilaterally. No audible rales rhonchi or wheezing was noted. CARDIOVASCULAR: There is a regular rate and rhythm without any murmurs gallops or rubs. ABDOMEN: Soft and nontender with normal bowel sounds. No palpable organomegaly was noted. There is no palpable pulsatile mass. SKIN: Skin is clear with no lesions or rashes and otherwise unremarkable. NEUROLOGIC: Patient is alert and oriented x3. Cranial nerves II through XII are grossly intact. Motor and sensory are also intact. Normal speech, volume and content. Symmetrical smile. MUSCULOSKELETAL: Normal extremities with adequate strength and full range of motion. No lower extremity swelling or edema. No calf tenderness. LYMPHATICS: No significant lymphadenopathy is noted PSYCHIATRIC: Normal psychiatric evaluation. Normal interpersonal interactions appears functionally intact in deals appropriately with others. No signs of depression. No signs of anxiety. Limitations: no limitations Course Vital Signs 04/28/18 08:15 Temperature 97.9 F Pulse Rate 78 Respiratory 16 Rate Blood Pressure 204/76 O2 Sat by Pulse 96 Oximetry Medical Decision Making - Medical Decision Making EKG shows normal sinus rhythm at 70 bpm AL interval is 172 QRS is 124 QT interval 408 QTC is 465. Patient's EKG shows some T-wave inversions in leads 3 and aVF as well as Q waves in those leads. I looked at her old EKG and the patient Q waves in the past and leads 3 and aVF. Chest x-ray shows no acute abnormality Patient had significant symptoms and has a very significant history so she was started on heparin for unstable angina. I spoke with because he agreed to admit the patient admitted the patient wrote admitting orders. I continued heparin and aspirin Nitropaste on the floor. - Lab Data Result diagrams: 04/28/18 08:33 04/28/18 08:33 Lab Results 04/28/18 04/28/18 04/28/18 Range/Units 08:33 08:33 08:33 WBC 7.2 (3.8-10.6) k/uL RBC 4.40 (3.80-5.40) m/uL Hgb 12.9 (11.4-16.0) gm/dL Hct 39.9 (34.0-46.0) % MCV 90.5 (80.0-100.0) fL MCH 29.3 (25.0-35.0) pg MCHC 32.4 (31.0-37.0) g/dL RDW 12.7 (11.5-15.5) % Plt Count 312 (150-450) k/uL Neutrophils % 67 % Lymphocytes % 23 % Monocytes % 6 % Eosinophils % 2 % Basophils % 1 % Neutrophils # 4.8 (1.3-7.7) k/uL Lymphocytes # 1.7 (1.0-4.8) k/uL Monocytes # 0.4 (0-1.0) k/uL Eosinophils # 0.1 (0-0.7) k/uL Basophils # 0.0 (0-0.2) k/uL PT (9.0-12.0) sec INR (<1.2) APTT (22.0-30.0) sec Sodium 132 L (137-145) mmol/L Potassium 4.4 (3.5-5.1) mmol/L Chloride 95 L (98-107) mmol/L Carbon Dioxide 24 (22-30) mmol/L Anion Gap 13 mmol/L BUN 16 (7-17) mg/dL Creatinine 0.60 (0.52-1.04) mg/dL Est GFR (CKD-EPI)AfAm >90 (>60 ml/min/1.73 sqM) Est GFR (CKD-EPI)NonAf 84 (>60 ml/min/1.73 sqM) Glucose 236 H (74-99) mg/dL Calcium 9.2 (8.4-10.2) mg/dL Magnesium 1.5 L (1.6-2.3) mg/dL Total Bilirubin 0.5 (0.2-1.3) mg/dL AST 24 (14-36) U/L ALT 24 (9-52) U/L Alkaline Phosphatase 110 (38-126) U/L Total Creatine Kinase 196 H (30-135) U/L CK-MB (CK-2) 5.1 H* (0.0-2.4) ng/mL CK-MB (CK-2) Rel Index 2.6 Troponin I <0.012 (0.000-0.034) ng/mL Total Protein 7.0 (6.3-8.2) g/dL Albumin 4.3 (3.5-5.0) g/dL 04/28/18 Range/Units 08:33 WBC (3.8-10.6) k/uL RBC (3.80-5.40) m/uL Hgb (11.4-16.0) gm/dL Hct (34.0-46.0) % MCV (80.0-100.0) fL MCH (25.0-35.0) pg MCHC (31.0-37.0) g/dL RDW (11.5-15.5) % Plt Count (150-450) k/uL Neutrophils % % Lymphocytes % % Monocytes % % Eosinophils % % Basophils % % Neutrophils # (1.3-7.7) k/uL Lymphocytes # (1.0-4.8) k/uL Monocytes # (0-1.0) k/uL Eosinophils # (0-0.7) k/uL Basophils # (0-0.2) k/uL PT 9.9 (9.0-12.0) sec INR 1.0 (<1.2) APTT 25.4 (22.0-30.0) sec Sodium (137-145) mmol/L Potassium (3.5-5.1) mmol/L Chloride (98-107) mmol/L Carbon Dioxide (22-30) mmol/L Anion Gap mmol/L BUN (7-17) mg/dL Creatinine (0.52-1.04) mg/dL Est GFR (CKD-EPI)AfAm (>60 ml/min/1.73 sqM) Est GFR (CKD-EPI)NonAf (>60 ml/min/1.73 sqM) Glucose (74-99) mg/dL Calcium (8.4-10.2) mg/dL Magnesium (1.6-2.3) mg/dL Total Bilirubin (0.2-1.3) mg/dL AST (14-36) U/L ALT (9-52) U/L Alkaline Phosphatase (38-126) U/L Total Creatine Kinase (30-135) U/L CK-MB (CK-2) (0.0-2.4) ng/mL CK-MB (CK-2) Rel Index Troponin I (0.000-0.034) ng/mL Total Protein (6.3-8.2) g/dL Albumin (3.5-5.0) g/dL Critical Care Time Critical Care Time: Yes Total Critical Care Time: 35 Disposition Clinical Impression: Unstable angina pectoris Disposition: ADMITTED IP TO THIS HOSP Referrals: Anthony Cameron MD [Primary Care Provider] - 1-2 days Time of Disposition: 09:58
[2018-04-28] MEDS ORDERED: HEPARIN SODIUM,PORCINE 5,000 UNIT/ML 1 ML VIAL IV ONE (09:01)
[2018-04-28 09:14] LABS: Basophils % (A) 1 %; Eosinophils # (A) 0.1 k/uL (0-0.7); Eosinophils % (A) 2 %; HCT 39.9 % (34.0-46.0); HGB 12.9 gm/dL (11.4-16.0); Lymphocytes # (A) 1.7 k/uL (1.0-4.8); Lymphocytes % (A) 23 %; MCH 29.3 pg (25.0-35.0); MCHC 32.4 g/dL (31.0-37.0); MCV 90.5 fL (80.0-100.0); Mean Platelet Volume 7.1; Monocytes # (A) 0.4 k/uL (0-1.0); Monocytes % (A) 6 %; Neutrophils # (A) 4.8 k/uL (1.3-7.7); Neutrophils % (A) 67 %; Platelet Count 312 k/uL (150-450); RDW 12.7 % (11.5-15.5); WBC 7.2 k/uL (3.8-10.6)
[2018-04-28 09:24] LABS: ALT 24 U/L (9-52); AST 24 U/L (14-36); Albumin 4.3 g/dL (3.5-5.0); Alkaline Phosphatase 110 U/L (38-126); Anion Gap 13 mmol/L; Blood Urea Nitrogen 16 mg/dL (7-17); Calcium 9.2 mg/dL (8.4-10.2); Carbon Dioxide 24 mmol/L (22-30); Chloride 95 mmol/L (98-107); Creatine Kinase 196 U/L (30-135); Glucose 236 mg/dL (74-99); Magnesium 1.5 mg/dL (1.6-2.3); Potassium 4.4 mmol/L (3.5-5.1); Sodium 132 mmol/L (137-145); Total Bilirubin 0.5 mg/dL (0.2-1.3)
[2018-04-28 09:27] LABS: Prothrombin Time 9.9 sec (9.0-12.0)
[2018-04-28 09:28] LABS: Partial Thromboplastin Time 25.4 sec (22.0-30.0)
[2018-04-28] MEDS: HEPARIN SOD,PORK IN 0.45% NACL 25,000 UNIT in 0.45% NACL 1 500ML.BAG IV SCH (09:34)
[2018-04-28 09:37] LABS: Troponin I <0.012 ng/mL (0.000-0.034)
[2018-04-28 09:43] LABS: Creatine Kinase MB 5.1 ng/mL (0.0-2.4)
[2018-04-28] MEDS ORDERED: NITROGLYCERIN SL TABS 0.4 MG TAB SUBLINGUAL PRN (09:59)
[2018-04-28] MEDS ORDERED: hydrALAZINE HCL 20 MG/ML 1 ML VIAL IVP STA (10:16)
--- NOTE | 2018-04-28 10:16 | XR ---
EXAMINATION TYPE: XR chest 2V DATE OF EXAM: 04/28/2018 COMPARISON: 05/31/2017 HISTORY: 83-year-old female with chest pressure and pain TECHNIQUE: PA and lateral views FINDINGS: Heart upper limits of normal in size. Aorta and pulmonary vasculature within normal limits. Mild diff use interstitial prominence and peribronchial cuffing is unchanged. Some patchy left basilar opacitie s present. No pleural effusion. IMPRESSION: Mild patchy left basilar atelectasis versus developing infiltrate. Otherwise, there are chronic changes, possible chronic bronchitis/asthma.
[2018-04-28 11:39] VITALS: BMI 29.6
[2018-04-28 11:42] LABS: Glucose,Whole Blood 96 mg/dL (75-99)
[2018-04-28] MEDS ORDERED: ALPRAZolam 0.25 MG TAB PO PRN (14:12)
[2018-04-28] MEDS ORDERED: ACETAMINOPHEN TAB 500 MG TAB PO PRN (14:13)
[2018-04-28] MEDS: NITROGLYCERIN OINT 1 INCH/GM PACKET TOPICAL SCH ×2 (15:36→16:54)
[2018-04-28 16:08] LABS: Troponin I 0.335 ng/mL (0.000-0.034)
[2018-04-28 16:09] LABS: Creatine Kinase MB 4.5 ng/mL (0.0-2.4)
[2018-04-28] MEDS: INSULIN ASPART 100 UNIT/ML 1 ML 10 ML VIAL SQ SCH ×2 (16:31→21:20)
[2018-04-28 16:33] LABS: Glucose,Whole Blood 116 mg/dL (75-99)
--- NOTE | 2018-04-28 16:45 | HP ---
HISTORY AND PHYSICAL DATE OF SERVICE: 04/28/2018 CHIEF COMPLAINT: Chest pain. HISTORY OF PRESENT ILLNESS: This 83-year-old woman with a past history of CAD, CVA, TIA, diabetes mellitus, GERD, hypertension, hyperlipidemia, myocardial infarction, history of back surgery, history of CAD stent being followed by Dr. Anthony Cameron in the outpatient setting, was complaining of chest pain. The patient had chest pain off and on prior to arrival, felt in the anterior part of the chest which is felt like somebody sitting on the chest with heaviness and the patient also shows mild shortness of breath and without radiation of pain. There is no associated palpitation. The patient came to [facility] and admitted for evaluation and treatment. There is no history of fever, rigors. No headache, loss of consciousness, seizures. PAST MEDICAL HISTORY: History of CAD and stent, history of CVA, TIA, diabetes type 2, hypertension, hyperlipidemia, myocardial infarction, DJD, history of back surgery, anxiety. MEDICATIONS: Prior to admission include home medications are: 1. Glucophage 500 mg p.o. b.i.d. 2. Vitamin A, C 2 tablets p.o. daily. 3. Lopressor 50 mg p.o. b.i.d. 4. Cozaar 50 mg p.o. daily. 5. Synthroid 18 mcg p.o. daily. 6. Hydrochlorothiazide 12.5 mg p.o. daily. 7. Amaryl 1 mg a.c. breakfast. 8. Neurontin 100 mg p.o. q.h.s. 9. Plavix 75 mg p.o. daily. 10.Vitamin D 3000 daily. 11.Lipitor 20 mg p.o. q.h.s. 12.Aspirin 81 mg p.o. daily. 13.Tylenol #3 1-2 tablets q.4h 6 p.r.n. 14.Xanax 0.5 daily p.r.n. ALLERGIES: PAPER TAPE. FAMILY HISTORY: History of myocardial infarction in the family. SOCIAL HISTORY: No history of smoking. No history of alcohol intake. REVIEW OF SYSTEMS: ENT: Diminished hearing, vision. CARDIOVASCULAR: As mentioned. RESPIRATORY: As mentioned earlier. GI: No nausea. : No dysuria. NERVOUS SYSTEM: No numbness or weakness. ALLERGY/IMMUNOLOGY: No history of asthma. MUSCULOSKELETAL: As mentioned earlier. HEMATOLOGY: No history of anemia. ENDOCRINE: As mentioned earlier. CONSTITUTIONAL: As mentioned earlier. DERMATOLOGY: Negative. RHEUMATOLOGY: Negative. PSYCHIATRY: As mentioned earlier. PHYSICAL EXAMINATION: Alert, oriented x3. Pulse 67, blood pressure 141/60, respirations 16, temperature 96 degrees, pulse ox 98 percent on 2 L. HEENT: Conjunctivae normal. Oral mucosa moist. NECK: No jugular venous distention. No carotid bruit. No lymph node enlargement. CARDIOVASCULAR: S1, S2. RESPIRATORY: Breath sounds diminished in the bases. No rhonchi, no crackles. ABDOMEN: Soft, nontender. No mass palpable. LEGS: No edema. NERVOUS SYSTEM: Higher function as mentioned. Moves all four limbs. No focal motor deficits. LYMPHATICS: No lymphadenopathy in the neck, axillae, groin. SKIN: No ulcer, rash, bleeding. LABS: CBC within normal. Sodium 132, creatinine is 196. ASSESSMENT: 1. Chest pain possible unstable angina. 2. Hypomagnesemia. 3. Hyponatremia mild. 4. History of coronary artery disease. 5. History of cerebrovascular accident, transient ischemic attack. 6. Diabetes mellitus type 2. 7. History of gastroesophageal reflux disease. 8. Hypertension. 9. Hyperlipidemia. 10.History of mitral infarction. 11.History of degenerative joint disease. 12.History of left eye blindness. 14.History back pain. 15.History of coronary artery disease, stent. 16.History anxiety. RECOMMENDATION AND DISCUSSION: This 83-year-old woman who presented with multiple complex medical issues, at this time I recommend to continue current management and symptomatic treatment. Otherwise at this time I would recommend continue the antiplatelet agents, beta blockers. Closely follow with Cardiology. Guarded prognosis because of multiple complex medical issues. Further recommendations to follow. Prognosis guarded. MMODL / IJN: [id number] / MTDD
[2018-04-28] MEDS: metFORMIN 500 MG TAB PO SCH (16:54)
[2018-04-28 20:46] LABS: Glucose,Whole Blood 102 mg/dL (75-99)
[2018-04-28] MEDS ORDERED: ATORVASTATIN 20 MG TAB PO SCH (21:00)
[2018-04-28] MEDS: METOPROLOL TARTRATE 50 MG TAB PO SCH (21:21)
[2018-04-28] MEDS: MELATONIN 3 MG TABLET PO SCH (21:21)
[2018-04-28] MEDS: GABAPENTIN 100 MG CAP PO SCH (21:21)
[2018-04-28 21:29] LABS: Creatine Kinase MB 3.8 ng/mL (0.0-2.4); Troponin I 0.203 ng/mL (0.000-0.034)
[2018-04-29] MEDS: NITROGLYCERIN OINT 1 INCH/GM PACKET TOPICAL SCH ×4 (00:27→17:08)
[2018-04-29 06:02] LABS: Glucose,Whole Blood 144 mg/dL (75-99)
[2018-04-29] MEDS: INSULIN ASPART 100 UNIT/ML 1 ML 10 ML VIAL SQ SCH ×4 (06:40→20:55)
[2018-04-29 06:47] LABS: Basophils # (A) 0.1 k/uL (0-0.2); Basophils % (A) 1 %; Eosinophils # (A) 0.2 k/uL (0-0.7); Eosinophils % (A) 3 %; HCT 35.2 % (34.0-46.0); HGB 11.6 gm/dL (11.4-16.0); Lymphocytes # (A) 1.9 k/uL (1.0-4.8); Lymphocytes % (A) 29 %; MCH 29.6 pg (25.0-35.0); MCHC 32.8 g/dL (31.0-37.0); MCV 90.3 fL (80.0-100.0); Mean Platelet Volume 6.9; Monocytes # (A) 0.5 k/uL (0-1.0); Monocytes % (A) 7 %; Neutrophils # (A) 3.8 k/uL (1.3-7.7); Neutrophils % (A) 58 %; Platelet Count 256 k/uL (150-450); RDW 12.7 % (11.5-15.5); WBC 6.5 k/uL (3.8-10.6)
[2018-04-29 07:08] LABS: Anion Gap 9 mmol/L; Blood Urea Nitrogen 16 mg/dL (7-17); Calcium 8.5 mg/dL (8.4-10.2); Carbon Dioxide 25 mmol/L (22-30); Chloride 98 mmol/L (98-107); Cholesterol 137 mg/dL (<200); Glucose 136 mg/dL (74-99); HDL Cholesterol 64 mg/dL (40-60); LDL Cholesterol,Calculated 49 mg/dL (0-99); Magnesium 1.6 mg/dL (1.6-2.3); Potassium 4.5 mmol/L (3.5-5.1); Sodium 132 mmol/L (137-145); Triglycerides 118 mg/dL (<150)
[2018-04-29 08:25] LABS: Appearance,Urine Clear (Clear); Bilirubin,Urine Negative (Negative); Blood,Urine Negative (Negative); Color,Urine Colorless; Glucose,Urine (UA) Negative (Negative); Ketones,Urine Negative (Negative); Leukocyte Esterase,Urine Negative (Negative); Nitrite,Urine Negative (Negative); Protein,Urine Negative (Negative); Specific Gravity,Urine 1.004 (1.001-1.035); Urobilinogen,Urine <2.0 mg/dL (<2.0)
[2018-04-29] MEDS ORDERED: ASPIRIN 325 MG TAB PO SCH (09:00)
[2018-04-29] MEDS: VIT A,C & E-LUTEIN-MINERALS 1 EACH TAB PO SCH ×2 (09:26→12:21)
[2018-04-29] MEDS: LOSARTAN 50 MG TAB PO SCH (09:27)
[2018-04-29] MEDS: HYDROCHLOROTHIAZIDE 12.5 MG CAP PO SCH (09:27)
[2018-04-29] MEDS: CHOLECALCIFEROL 1,000 UNIT TAB PO SCH (09:27)
[2018-04-29] MEDS: METOPROLOL TARTRATE 50 MG TAB PO SCH ×2 (09:27→20:54)
[2018-04-29] MEDS: CLOPIDOGREL 75 MG TAB PO SCH (09:27)
[2018-04-29] MEDS: LEVOTHYROXINE 88 MCG TAB PO SCH ×2 (09:29→09:34)
[2018-04-29] MEDS: HEPARIN SOD,PORK IN 0.45% NACL 25,000 UNIT in 0.45% NACL 1 500ML.BAG IV SCH (09:43)
[2018-04-29 11:30] LABS: Glucose,Whole Blood 133 mg/dL (75-99)
[2018-04-29] MEDS: GLIMEPIRIDE 1 MG TAB PO SCH (12:21)
[2018-04-29] MEDS: metFORMIN 500 MG TAB PO SCH ×2 (12:21→17:08)
--- NOTE | 2018-04-29 12:22 | P.CRDCN ---
History of Present Illness Consult date: 04/29/18 Requesting physician: Marshall Alcantara Reason for Consult (text): Chest pain, shortness of breath, non-ST elevated NV Consult reason: non-Q-wave NV, chest pain, hypertension, shortness of breath Chief complaint: Substernal chest pain, shortness of breath, non-ST elevated NV History of present illness: This is a 83-year-old white female patient, who presented to the emergency department on 04/28/2018 at 8:00 in the morning with complaints of uterine onset of substernal chest pain. The onset of symptoms was yesterday, was walking into a room to get her purse, when she started having substernal chest pressure, with no radiation. Started becoming nauseous, diaphoretic, short of breath. She was going to pass out. She did notice some swelling in her bilateral lower extremities. Patient does have prior history of coronary artery disease with prior stenting, history of myocardial infarction, CVA, hypertension, hyperlipidemia, diabetes mellitus type II, hypothyroidism. Her son drove her to the hospital, where an inch of nitro paste was applied to her anterior chest, patient was given supplemental oxygen, and started on a heparin , and subsequently patient's chest pain and shortness of breath improved. EKG showed normal sinus rhythm with a right bundle branch block, and evidence of an old inferior wall infarct. CBC was unremarkable, sodium is 132, potassium is 4.4, chloride is 95, renal profile was within normal limits. Initial troponin was 0.012, and subsequently increased to 0.335, and 0.203. CK-MB was 5.1, 4.5, and 3.8. Chest x-ray mild patchy left basilar atelectasis. Patient is seen in consultation, and during my evaluation she is awake and alert, denies any acute distress, no chest pain or shortness of breath. She remains on heparin drip, and nitroglycerin patch. Review of Systems All systems: negative Constitutional: Denies chills, Denies fever Eyes: denies blurred vision, denies pain Ears, nose, mouth and throat: Denies headache, Denies sore throat Cardiovascular: Reports chest pain, Reports edema, Reports high blood pressure, Reports leg edema, Denies shortness of breath Respiratory: Denies cough Gastrointestinal: Denies abdominal pain, Denies diarrhea, Denies nausea, Denies vomiting Genitourinary: Denies dysuria, Denies hematuria Musculoskeletal: Denies myalgias Integumentary: Denies pruritus, Denies rash Neurological: Denies numbness, Denies weakness Psychiatric: Denies anxiety, Denies depression Endocrine: Denies fatigue, Denies weight change Past Medical History Past Medical History: Coronary Artery Disease (CAD), CVA/TIA, Diabetes Mellitus , Eye Disorder, GERD/Reflux, Hyperlipidemia, Hypertension, Myocardial Infarction (NV), Osteoarthritis (OA), Thyroid Disorder Additional Past Medical History / Comment(s): 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 Last Myocardial Infarction Date:: 11/2011 History of Any Multi-Drug Resistant Organisms: None Reported Past Surgical History: Back Surgery, Breast Surgery, Heart Catheterization With Stent, Hysterectomy, Orthopedic Surgery, Tubal Ligation Additional Past Surgical History / Comment(s): RIGHT EYE CATARACT REMOVAL, LASER EYE SURGERY BILATERALLY, "TUBES IN EYES NOW OUT", THYROIDECTOMY D/T NODULES, TEMPORAL ARTERY BX, L BREAST BENIGN BX, LOW BACK SURGERY, R SHOULDER ROTATOR CUFF REPAIR, CERVICAL PAIN INJECTIONS. Past Anesthesia/Blood Transfusion Reactions: Previous Problems w/ Anesthesia Additional Past Anesthesia/Blood Transfusion Reaction / Comment(s): hard to wake up Date of Last Stent Placement:: 12/22/2011 Past Psychological History: Anxiety Additional Psychological History / Comment(s): pts spouse in october. her oldest son lives with her currently. She is unable to take her own blood sugars due to vision. SHE IS BLIND IN THE L EYE AND SEES MINIMALLY WITH HER RIGHT EYE. SHE HAS A LIGHTED MAGNIFIER WHICH SHE USES TO MANAGE HER MEDICATIONS. NO OUTSIDE SERVICES AT THIS TIME. Smoking Status: Never smoker Past Alcohol Use History: None Reported Past Drug Use History: None Reported - Past Family History Mother Family Medical History: Myocardial Infarction (NV) Additional Family Medical History / Comment(s): MOTHER OF A NV AT THE AGE OF 57YRS. Brother(s) Family Medical History: Myocardial Infarction (NV) Additional Family Medical History / Comment(s): BROTHER OF A NV AT THE AGE OF 60YRS. Father Family Medical History: No Reported History Additional Family Medical History / Comment(s): FATHER LIVED TO BE 90YRS OLD. Medications and Allergies Home Medications Medication Instructions Recorded Confirmed Type Aspirin 81 mg PO HS 01/21/14 04/28/18 History Clopidogrel [Plavix] 75 mg PO DAILY 01/21/14 04/28/18 History Metoprolol Tartrate [Lopressor] 50 mg PO BID 01/21/14 04/28/18 History Cholecalciferol [Vitamin D3] 1,000 unit PO DAILY 05/03/16 04/28/18 History Vits A,C,E/Lutein/Minerals 2 tab PO DAILY 05/03/16 04/28/18 History [Ocuvite with Lutein Tablet] Levothyroxine Sodium [Synthroid] 88 mcg PO DAILY 05/31/17 04/28/18 History ALPRAZolam [Xanax] 0.25 mg PO DAILY PRN #30 06/05/17 04/28/18 Rx Acetaminophen-Codeine 300-30mg 1 - 2 tab PO Q4-6H PRN 04/28/18 04/28/18 History [Tylenol w/codeine #3] Atorvastatin Calcium [Lipitor] 20 mg PO HS 04/28/18 04/28/18 History Gabapentin [Neurontin] 100 mg PO HS 04/28/18 04/28/18 History Glimepiride [Amaryl] 1 mg PO AC-BRKFST 04/28/18 04/28/18 History Hydrochlorothiazide 12.5 mg PO DAILY 04/28/18 04/28/18 History Losartan [Cozaar] 50 mg PO DAILY 04/28/18 04/28/18 History metFORMIN HCL [Glucophage] 500 mg PO BID 04/28/18 04/28/18 History Allergies Allergy/AdvReac Type Severity Reaction Status Date / Time PAPER TAPE Allergy Rash/Hives Uncoded 04/28/18 10:18 Physical Exam Vitals: Vital Signs Temp Pulse Resp BP Pulse Ox 04/29/18 08:00 96.1 F L 57 L 16 186/77 97 04/29/18 04:50 97.1 F L 54 L 16 134/68 97 04/29/18 00:15 56 L 16 121/67 96 04/28/18 21:18 97.0 F L 65 16 189/72 95 04/28/18 15:03 96 F L 67 16 141/67 96 Intake and Output 04/28/18 04/29/18 04/29/18 22:59 06:59 14:59 Intake Total 240 100 412.724 Output Total 350 Balance 240 100 62.724 Intake: Intake, IV Titration 100 412.724 Amount Heparin Sod,Pork in 0.45% 100 412.724 NaCl 25,000 unit In 0.45 % NaCl 1 500ml.bag @ 12 UNITS/KG/HR 17.09 mls/hr IV .Q24H [facility]REW Rx#: [id number] Oral 240 Output: Urine 350 Other: # Voids 3 Weight 70.5 kg 67 kg GENERAL EXAM: Alert, pleasant 83-year-old white female, comfortable in no apparent distress. Patient states she is feeling cold, and she is wrapped in blankets. Otherwise no distress. HEAD: Normocephalic/atraumatic. EYES: Normal reaction of pupils, equal size. Conjunctiva pink, sclera white. NOSE: Clear with pink turbinates. THROAT: No erythema or exudates. NECK: No masses, no JVD, no thyroid enlargement, no adenopathy. CHEST: No chest wall deformity. Symmetrical expansion. LUNGS: Equal air entry with no crackles, wheeze, rhonchi or dullness. CVS: Regular rate and rhythm, normal S1 and S2, no gallops, no murmurs, no rubs ABDOMEN: Soft, nontender. No hepatosplenomegaly, normal bowel sounds, no guarding or rigidity. EXTREMITIES: No clubbing, no cyanosis, 2+ pulses and upper and lower extremities. Trace pretibial and pedal edema noted. MUSCULOSKELETAL: Muscle strength and tone normal. SPINE: No scoliosis or deformity SKIN: No rashes CENTRAL NERVOUS SYSTEM: Alert and oriented -3. No focal deficits, tone is normal in all 4 extremities. PSYCHIATRIC: Alert and oriented -3. Appropriate affect. Intact judgment and insight. Results 04/29/18 06:25 04/29/18 06:25 Cardiac Enzymes 04/28/18 04/28/18 Range/Units 15:02 20:08 CK-MB (CK-2) 4.5 H* 3.8 H* (0.0-2.4) ng/mL Troponin I 0.335 H* 0.203 H* (0.000-0.034) ng/mL Coagulation 04/28/18 04/29/18 Range/Units 15:02 06:25 APTT 68.3 H 63.6 H (22.0-30.0) sec Lipids 04/29/18 Range/Units 06:25 Triglycerides 118 (<150) mg/dL Cholesterol 137 (<200) mg/dL HDL Cholesterol 64 H (40-60) mg/dL CBC 04/29/18 Range/Units 06:25 WBC 6.5 (3.8-10.6) k/uL RBC 3.90 (3.80-5.40) m/uL Hgb 11.6 (11.4-16.0) gm/dL Hct 35.2 (34.0-46.0) % Plt Count 256 (150-450) k/uL Comprehensive Metabolic Panel 04/29/18 Range/Units 06:25 Sodium 132 L (137-145) mmol/L Potassium 4.5 (3.5-5.1) mmol/L Chloride 98 (98-107) mmol/L Carbon Dioxide 25 (22-30) mmol/L BUN 16 (7-17) mg/dL Creatinine 0.66 (0.52-1.04) mg/dL Glucose 136 H (74-99) mg/dL Calcium 8.5 (8.4-10.2) mg/dL Current Medications Generic Name Dose Route Start Last Admin Trade Name Lawrenceq PRN Reason Stop Dose Admin Acetaminophen 500 mg 04/28/18 14:13 Tylenol Tab PO Q6HR PRN Fever and/ or Pain Acetaminophen/Codeine Phosphate 1 - 2 each 04/28/18 14:12 Tylenol #3 PO Q4H PRN Pain Alprazolam 0.25 mg 04/28/18 14:12 Xanax PO DAILY PRN Anxiety Aspirin 325 mg 04/29/18 09:00 04/29/18 09:27 Aspirin PO 325 mg DAILY ANDREW Administration Atorvastatin Calcium 20 mg 04/28/18 21:00 04/28/18 21:21 Lipitor PO 20 mg HS [facility]REW Administration Cholecalciferol 1,000 unit 04/29/18 09:00 04/29/18 09:27 Vitamin D3 PO 1,000 unit DAILY [facility]RE[facility] Administration Clopidogrel Bisulfate 75 mg 04/29/18 09:00 04/29/18 09:27 Plavix PO 75 mg DAILY [facility] Administration Gabapentin 100 mg 04/28/18 21:00 04/28/18 21:21 Neurontin PO 100 mg HS [facility] Administration Glimepiride 1 mg 04/29/18 07:30 Amaryl PO AC-BRKFST [facility] Hydrochlorothiazide 12.5 mg 04/29/18 09:00 04/29/18 09:27 Hydrodiuril PO 12.5 mg DAILY [facility] Administration Heparin Sodium/Sodium Chloride 500 mls @ 17.09 mls/hr 04/28/18 09:15 09:43 25,000 unit/ Sodium Chloride IV 12 units/kg/hr .Q24H ANDREW 17.09 mls/hr Administration Protocol 12 UNITS/KG/HR Insulin Aspart 0 unit 04/28/18 17:30 04/29/18 06:40 Novolog SQ Not Given ACHS [facility] Protocol Levothyroxine Sodium 88 mcg 04/29/18 06:30 04/29/18 09:34 Synthroid PO Not Given DAILY@0630 [facility] Losartan Potassium 50 mg 04/29/18 09:00 04/29/18 09:27 Cozaar PO 50 mg DAILY [facility] Administration Melatonin 3 mg 04/28/18 21:00 04/28/18 21:21 Melatonin PO 3 mg HS [facility] Administration Metformin HCl 500 mg 04/28/18 17:30 04/28/18 16:54 Glucophage PO 500 mg BID-W/MEALS [facility] Administration Metoprolol Tartrate 50 mg 04/28/18 21:00 04/29/18 09:27 Lopressor PO 50 mg BID [facility] Administration Multivitamins/Minerals 2 each 04/29/18 09:00 Ivite PO DAILY [facility] Nitroglycerin 1 inch 04/28/18 12:00 04/29/18 06:40 Nitro-Bid Oint TOPICAL 1 inch Q6HR [facility] Administration Nitroglycerin 0.4 mg 04/28/18 09:59 Nitrostat SUBLINGUAL Q5M PRN Chest Pain Intake and Output 04/28/18 04/29/18 04/29/18 22:59 06:59 14:59 Intake Total 240 100 412.724 Output Total 350 Balance 240 100 62.724 Intake: Intake, IV Titration 100 412.724 Amount Heparin Sod,Pork in 0.45% 100 412.724 NaCl 25,000 unit In 0.45 % NaCl 1 500ml.bag @ 12 UNITS/KG/HR 17.09 mls/hr IV .Q24H [facility] Rx#: [id number] Oral 240 Output: Urine 350 Other: # Voids 3 Weight 70.5 kg 67 kg 04/29/18 06:25 04/29/18 06:25 - EKG Interpretation EKG shows: sinus rhythm Assessment and Plan Plan: Assessment: #1. Acute non-ST elevated myocardial infarction #2. Chest pain, shortness of breath due to the above #3. Elevated troponins #4. History of coronary artery disease, with prior stenting 12 14 2011 #5. History of cerebrovascular accident #6. Hypertension #7. Hyperlipidemia #8. Diabetes mellitus type 2 #9. History of left eye blindness related to history of CVA #10. History of degenerative joint disease #11. Hyponatremia Plan: Continue heparin drip, Nitropaste, aspirin, Plavix, Lipitor, Cozaar. Patient is currently chest pain-free, no shortness of breath. Will see the patient, will possibly schedule the patient for cardiac catheterization for tomorrow on 04/30/2018. I performed a history & physical examination of the patient and discussed their management with my nurse practitioner, Rosmery Bailey. I reviewed the nurse practitioner's note and agree with the documented findings and plan of care. Lung sounds are clear, heart sounds normal S1 and S2. The findings and the impression was discussed with the patient. I attest to the documentation by the nurse practitioner. Time with Patient: Greater than 30
[2018-04-29] MEDS ORDERED: amLODIPine 5 MG TAB PO STA (15:25)
[2018-04-29] MEDS ORDERED: ALPRAZolam 0.5 MG TAB PO PRN (15:26)
[2018-04-29] MEDS ORDERED: SODIUM CHLORIDE 0.9% 1,000 ML in EMPTY BAG 1 BAG IV ONE (15:26)
[2018-04-29] MEDS ORDERED: ALPRAZolam 0.25 MG TAB PO PRN (15:26)
[2018-04-29] MEDS ORDERED: NITROGLYCERIN SL TABS 0.4 MG TAB SUBLINGUAL PRN (15:26)
[2018-04-29 16:19] LABS: Glucose,Whole Blood 88 mg/dL (75-99)
--- NOTE | 2018-04-29 18:31 | PN ---
PROGRESS NOTE DATE OF SERVICE: 04/29/2018 This 83-year-old woman admitted chest pain is being closely monitored. Cardiology is planning tentative cardiac catheterization tomorrow. No chest pain. No palpitations. No fever at this time. Troponins noted to be elevated to 0.203. REVIEW OF SYSTEMS: CARDIOVASCULAR: No angina. RESPIRATORY: As mentioned. GI: As mentioned. : No dysuria. NERVOUS SYSTEM: No numbness. CURRENT MEDICATIONS: 1. Tylenol 500 mg q.6h p.r.n. 2. Tylenol #3 q.4h p.r.n. 3. Xanax 0.5 q.i.d. 4. Norvasc 5 mg p.o. b.i.d. 5. Aspirin 325 daily. 6. Lipitor. 7. Vitamin D3. 8. Neurontin 1 mg. 9. Heparin subcu. 10.Adderall 12.5 mg. 11.Synthroid 88 mcg. 12.Cozaar 50 mg. 13.Melatonin. 14.Lopressor 50 mg b.i.d. 15.Nitrostat. PHYSICAL EXAM: Alert and oriented x3. Pulse is 61, blood pressure 206/82, respirations 16, temperature 96.8, pulse ox 98% room air. HEENT: Oral mucosa moist. Neck is no jugular venous distention. No carotid bruit. No lymph node enlargement. CARDIOVASCULAR: S1, S2. RESPIRATORY: Breath sounds diminished in the bases. A few scattered rhonchi. No crackles. ABDOMEN: Soft, nontender. LEGS: No edema. NERVOUS SYSTEM: No focal deficits. LAB STUDIES: CBC within normal limits. Glucose 133. ASSESSMENT: 1. Chest pain possible unstable angina possible acute non ST-segment elevation myocardial infarction with troponin 0.203. 2. Hypomagnesemia. 3. Hyponatremia mild. 4. Hypertension accelerated and hypertensive urgency. 5. History of coronary artery disease. 6. History of cerebrovascular accident, transient ischemic attack. 7. Diabetes mellitus type 2. 8. History of gastroesophageal reflux disease. 9. Hyperlipidemia. 10.History of myocardial infarction. 11.History of degenerative joint disease. 12.History of left eye blindness. 13.History of back pain. 14.History of coronary artery disease, stent. 15.History of anxiety. RECOMMENDATIONS AND DISCUSSION: I recommend to continue current medications, continue monitoring and symptomatic treatment. Adjust the blood pressure medications. See orders for details. Otherwise monitor labs. Possible cardiac catheterization by Cardiology. Continue with antiplatelet and beta blockers. Antiplatelet agents. Prognosis guarded. Further recommendations to follow. See orders for details. MMODL / IJN: [id number] /
[2018-04-29 20:54] LABS: Glucose,Whole Blood 103 mg/dL (75-99)
[2018-04-29] MEDS: GABAPENTIN 100 MG CAP PO SCH (20:54)
[2018-04-29] MEDS: amLODIPine 5 MG TAB PO SCH (20:55)
[2018-04-29] MEDS: MELATONIN 3 MG TABLET PO SCH (21:26)
[2018-04-30] MEDS: NITROGLYCERIN OINT 1 INCH/GM PACKET TOPICAL SCH ×3 (02:08→10:46)
[2018-04-30] MEDS ORDERED: ASPIRIN 325 MG TAB PO ONE (06:00)
[2018-04-30] MEDS ORDERED: ATORVASTATIN 80 MG TAB PO ONE (06:00)
[2018-04-30 06:13] LABS: Basophils # (A) 0.1 k/uL (0-0.2); Basophils % (A) 1 %; Eosinophils # (A) 0.2 k/uL (0-0.7); Eosinophils % (A) 3 %; HCT 36.3 % (34.0-46.0); HGB 12.1 gm/dL (11.4-16.0); Lymphocytes # (A) 1.9 k/uL (1.0-4.8); Lymphocytes % (A) 33 %; MCHC 33.3 g/dL (31.0-37.0); Mean Platelet Volume 7.1; Monocytes # (A) 0.4 k/uL (0-1.0); Monocytes % (A) 6 %; Neutrophils # (A) 3.1 k/uL (1.3-7.7); Neutrophils % (A) 54 %; Platelet Count 249 k/uL (150-450); RBC 4.03 m/uL (3.80-5.40); RDW 12.9 % (11.5-15.5); WBC 5.8 k/uL (3.8-10.6)
[2018-04-30 06:22] LABS: Glucose,Whole Blood 144 mg/dL (75-99)
[2018-04-30 06:36] LABS: Anion Gap 8 mmol/L; Blood Urea Nitrogen 14 mg/dL (7-17); Calcium 8.8 mg/dL (8.4-10.2); Carbon Dioxide 27 mmol/L (22-30); Chloride 101 mmol/L (98-107); Glucose 137 mg/dL (74-99); Potassium 4.6 mmol/L (3.5-5.1); Sodium 136 mmol/L (137-145)
[2018-04-30] MEDS: INSULIN ASPART 100 UNIT/ML 1 ML 10 ML VIAL SQ SCH ×4 (06:52→22:15)
[2018-04-30] MEDS: GLIMEPIRIDE 1 MG TAB PO SCH (06:52)
[2018-04-30] MEDS: metFORMIN 500 MG TAB PO SCH (06:52)
[2018-04-30] MEDS: METOPROLOL TARTRATE 50 MG TAB PO SCH ×2 (06:56→19:59)
[2018-04-30] MEDS: amLODIPine 5 MG TAB PO SCH ×2 (06:56→19:59)
[2018-04-30] MEDS: CHOLECALCIFEROL 1,000 UNIT TAB PO SCH (06:56)
[2018-04-30] MEDS: CLOPIDOGREL 75 MG TAB PO SCH (06:56)
[2018-04-30] MEDS: HYDROCHLOROTHIAZIDE 12.5 MG CAP PO SCH ×2 (06:56→08:54)
[2018-04-30] MEDS: LEVOTHYROXINE 88 MCG TAB PO SCH (06:56)
[2018-04-30] MEDS: LOSARTAN 50 MG TAB PO SCH ×2 (06:57→19:59)
[2018-04-30] MEDS: VIT A,C & E-LUTEIN-MINERALS 1 EACH TAB PO SCH (06:57)
[2018-04-30] MEDS ORDERED: hydrALAZINE HCL 20 MG/ML 1 ML VIAL IVP STA (09:15)
[2018-04-30] MEDS: HEPARIN SOD,PORK IN 0.45% NACL 25,000 UNIT in 0.45% NACL 1 500ML.BAG IV SCH (09:50)
[2018-04-30] MEDS ORDERED: cloNIDine 0.2 MG/24HR PATCH TRANSDERM SCH (10:30)
[2018-04-30] MEDS ORDERED: LIDOCAINE 1% INJ 10MG/ML (20 ML MDV) ONE (11:00)
[2018-04-30] MEDS ORDERED: LIDOCAINE 1% INJ 10MG/ML (20 ML MDV) SQ ONE (11:27)
[2018-04-30] MEDS ORDERED: BIVALIRUDIN 250 MG in SODIUM CHLORIDE 0.9% 50 ML IV ONE (11:49)
[2018-04-30] MEDS ORDERED: BIVALIRUDIN BOLUS 250 MG/50 ML IV ONE (11:49)
[2018-04-30] MEDS ORDERED: NITROGLYCERIN 1000MCG/10ML SYRINGE INTRACORON ONE (11:51)
[2018-04-30] MEDS ORDERED: IV FLUID CONTINUATION 1,000 ML IV ONE (11:52)
[2018-04-30] MEDS ORDERED: CLOPIDOGREL 75 MG TAB ONE (11:54)
[2018-04-30] MEDS ORDERED: CLOPIDOGREL 75 MG TAB PO ONE (11:57)
[2018-04-30] MEDS ORDERED: IOPAMIDOL-370 125ML BTL INJ ONE (11:59)
[2018-04-30] MEDS ORDERED: METOPROLOL TARTRATE 5 MG/5 ML VIAL IVP ONE ×2 (12:09→12:10)
[2018-04-30] MEDS ORDERED: fentaNYL (PF) 50 MCG/ML 2 ML AMP ONE (12:11)
[2018-04-30] MEDS ORDERED: LIDOCAINE 2% INJ 20 MG/ML IV ONE (12:12)
[2018-04-30] MEDS ORDERED: fentaNYL (PF) 50 MCG/ML 2 ML AMP IVP ONE (12:13)
[2018-04-30] MEDS ORDERED: IOPAMIDOL-370 100ML BTL INJ ONE (12:19)
[2018-04-30] MEDS ORDERED: ATROPINE SULFATE 0.1 MG/ML 10ML SYRINGE IV PRN (12:34)
[2018-04-30] MEDS ORDERED: RX INFO: IV CONTRAST WAS GIVEN 1 EACH MISC MISCELLANE PRN (12:34)
[2018-04-30] MEDS ORDERED: ZOLPIDEM 5 MG TAB PO PRN (12:34)
[2018-04-30] MEDS ORDERED: MAG HYDROX/AL HYDROX/SIMETH 30 ML CUP PO PRN (12:34)
[2018-04-30] MEDS ORDERED: NITROGLYCERIN SL TABS 0.4 MG TAB SUBLINGUAL PRN (12:34)
[2018-04-30] MEDS ORDERED: ISOSORBIDE MONONITRATE ER 30 MG TAB.ER.24H PO SCH (12:45)
[2018-04-30] MEDS ORDERED: SODIUM CHLORIDE 0.9% 1,000 ML IV SCH (12:45)
--- NOTE | 2018-04-30 12:46 | CC ---
CARDIAC CATHETERIZATION REPORT Mrs. Brewster is an 83-year-old female who was admitted with symptoms of chest pain. Cardiac enzymes are positive suggestive of non ST-segment elevation myocardial infarction. Patient has a past history of a stent to the LAD and circumflex coronary artery. Patient was advised further evaluation with a cardiac catheterization for definitive diagnosis. PROCEDURE: The right groin was prepped and draped in the usual manner and the skin was infiltrated with 2% Xylocaine. The right femoral artery was entered using Seldinger technique. A #6-Maldivian sheath was placed in. Selective coronary angiography was then performed in multiple projections and the left ventricular pressures were obtained. Patient tolerated the procedure well. HEMODYNAMICS: Left ventricular end-diastolic pressure is 20 mmHg prior to angiography. No gradient is noted across the aortic wall. Left main coronary artery is normal and patent. LAD is a good caliber blood vessel and the mid LAD has a in-stent stenosis of 90%. Circumflex coronary artery is a good caliber blood vessel and there is a proximal stenosis of the circumflex of about 90%. Right coronary artery has been totally occluded in the past. IMPRESSION: There is a 90% stenosis in the midportion of the LAD and 90% stenosis of the proximal circumflex coronary artery. Right coronary artery has been totally occluded in the past. RECOMMENDATIONS: Films were reviewed with Dr. Short and we will proceed with intervention which is considered high risk. MMODL / IJN: [id number] /
--- NOTE | 2018-04-30 13:08 | PTCA ---
PERCUTANEOUSTRANS CORORONARY ANGIOGRAPHY Mrs. Brewster is an 83-year-old female with a known history of coronary disease status post percutaneous revascularization of the left circumflex and the LAD by Dr. Isaiah Silva who presented with symptoms of chest discomfort and had evidence of non ST- segment elevation myocardial infarction. She was evaluated by Dr. Aceves and underwent cardiac catheterization, was found to have significant obstructive disease involving the mid LAD as well as the ostial left circumflex. In view of that, recommendation was made regarding angioplasty and stenting. The procedures, risks and complications were discussed with the patient who is in full understanding and agreement. PROCEDURE: A 6-Lao FR4 guiding catheter introduced into the system. After cannulating the left main a 0.014 balanced medium weight J-wire was advanced and positioned distal LAD. Following that, a 2.5 x 12 mm Xience Alpine stent was advanced and deployed and postdilated at 16 atmospheres. Following that the balloon was removed and a 2.5 x 12 mm NC Trek balloon was advanced and inflation overlap segment at 14 atmospheres was done. Following that, the balloon withdrawn back in the guiding catheter. Images were obtained repeated. Those images reveal stable successful stenting. At that point, another 0.014 balanced medium weight J-wire was advanced into the left circumflex, positioned in the distal obtuse marginal branch and subsequently a 2.5 x 12 mm Xience Alpine stent was advanced, deployed and post dilated at 16 atmospheres. After the last inflation, after appropriate wait the balloon and the guidewire were withdrawn back in the guiding catheter. Images were obtained and repeated. Those images reveal stable successful stenting. At that point, the guiding catheter, the balloon and the guidewire were removed. The sheath was sutured in place. The patient was returned to her room in stable condition. Of note, the patient had chest discomfort and EKG changes with the inflation and she had runs of non-sustained ventricular tachycardia with the inflations off the left circumflex that resolved at the end the procedure. She received an oral loading dose of clopidogrel as well as Angiomax per protocol. She also received 5 mg intravenous metoprolol and 100 mg of intravenous lidocaine. RESULTS: 1. Successful stenting of the mid LAD with reduction of stenosis from 90% to 0%. 2. Successful stenting of the proximal left circumflex with reduction of stenosis from 95% to 0%. RECOMMENDATION: The patient will be continued on aspirin, Plavix, statin. The importance of dual antiplatelet treatment were discussed with the patient and she is in full understanding and agreement. DURATION OF PROCEDURE: 38 minutes. DILMA / CHULA: [id number] /
[2018-04-30 17:05] LABS: Glucose,Whole Blood 169 mg/dL (75-99)
[2018-04-30] MEDS: MELATONIN 3 MG TABLET PO SCH (19:59)
[2018-04-30] MEDS: GABAPENTIN 100 MG CAP PO SCH (19:59)
[2018-04-30 20:56] LABS: Glucose,Whole Blood 174 mg/dL (75-99)
[2018-04-30] MEDS: Acetaminophen-Codeine 300-30mg TAB PO PRN (22:18)
--- NOTE | 2018-05-01 05:53 | PN ---
PROGRESS NOTE DATE OF SERVICE: 04/30/2018 This 83-year-old woman who was admitted with chest pain, underwent a cardiac catheterization. The patient had possible acute non ST elevation myocardial infarction. The patient had cardiac cath patient has significant obstructive lesion involving the mid LAD as well as the posterior left circumflex. The patient underwent successful stenting of the mid LAD and as well as proximal left circumflex with reduction of stenosis 95 to 0%. However, the patient did have some episodes or runs of non-sustained ventricular tachycardia during the procedure. The patient also received beta blockers and lidocaine as well. Patient will be closely monitored at this time. PAST MEDICAL HISTORY: Reviewed. REVIEW OF SYSTEMS: CARDIOVASCULAR SYSTEM: As mentioned. RESPIRATORY: As mentioned. GI: No nausea. : No dysuria. NERVOUS SYSTEM: No numbness or weakness. CURRENT MEDICATIONS: Reviewed and include: 1. Tylenol 500 q.6 p.r.n. 2. Tylenol #3. 3. Maalox. 4. Xanax 0.5 q.6h p.r.n. 5. Norvasc 5 mg p.o. b.i.d. 6. Aspirin 81 mg. 7. Lipitor 40 mg. 9. Vitamin D. 10.Plavix 75 mg. 11.Neurontin 1200 mg q.h.s. 12.Amaryl 4 mg p.o. q.h.s. 13.HydroDIURIL 25 mg. 14.NovoLog. 15.Imdur 30 mg. 16.Synthroid 88 mcg p.o. 17.Cozaar 50 mg p.o. b.i.d. 18.Melatonin mg q.h.s. 19.Lopressor 50 mg p.o. b.i.d. 20.Multivitamins 1 p.o. daily. 21.Nitrostat. 22.Ambien. PHYSICAL EXAM: Patient is alert, oriented x3. Pulse 59, blood pressure 109/65, respiration 17, temperature 97.2, pulse ox 98% on 3 L. HEENT: Conjunctivae normal. Oral mucosa moist. Neck is no jugular venous distention. No carotid bruit. No lymph node enlargement. CARDIOVASCULAR: S1, S2 RESPIRATORY: Breath sounds diminished in the bases. No rhonchi, no crackles. ABDOMEN: Soft, nontender. No mass palpable. LEGS: No edema, no swelling. NERVOUS SYSTEM: Higher functions as mentioned. Moves all 4 limbs. No focal motor or sensory deficits. LYMPHATICS: No lymphadenopathy in the neck, axillae, groin. SKIN: No ulcer, rash or bleeding. LABS: CBC within normal. Sodium 136. ASSESSMENT: 1. Acute non ST-segment elevation myocardial infarction. Troponin 0.203, status post cardiac cath and stenting of the mid LAD as well as proximal left circumflex. 2. Nonsustained ventricular tachycardia. 3. Hypomagnesemia. 4. Hyponatremia mild. 5. Hypertension accelerated with hypertensive urgency. 6. History of coronary artery disease. 7. History of cerebrovascular accident, transient ischemic attack. 8. Diabetes mellitus type 2. 9. History of gastroesophageal reflux disease. 10.Hyperlipidemia. 11.History of myocardial infarction. 12.History of degenerative joint disease. 13.History of left eye blindness. 14.History of back pain. 15.History of coronary artery disease, stent. 16.History of anxiety. 17.NO CODE, NO CPR, NO VENT. RECOMMENDATIONS AND DISCUSSION: I recommend to continue current management, symptomatic treatment. Continue with beta blockers. We will check magnesium. Continue antiplatelet agents. Closely follow with Cardiology. Prognosis guarded because of multiple complex medical issues as detailed above and further recommendations to follow. MMODL / IJN: [id number] / TOMI
[2018-05-01 06:04] LABS: Glucose,Whole Blood 138 mg/dL (75-99)
[2018-05-01] MEDS: LEVOTHYROXINE 88 MCG TAB PO SCH (06:39)
[2018-05-01] MEDS: GLIMEPIRIDE 1 MG TAB PO SCH (06:39)
[2018-05-01] MEDS: INSULIN ASPART 100 UNIT/ML 1 ML 10 ML VIAL SQ SCH ×2 (06:40→11:56)
[2018-05-01 07:26] LABS: Basophils % (A) 1 %; Eosinophils # (A) 0.2 k/uL (0-0.7); Eosinophils % (A) 2 %; HCT 38.5 % (34.0-46.0); HGB 12.5 gm/dL (11.4-16.0); Lymphocytes # (A) 2.1 k/uL (1.0-4.8); Lymphocytes % (A) 26 %; MCH 29.6 pg (25.0-35.0); MCHC 32.5 g/dL (31.0-37.0); MCV 90.9 fL (80.0-100.0); Mean Platelet Volume 6.8; Monocytes # (A) 0.6 k/uL (0-1.0); Monocytes % (A) 7 %; Neutrophils % (A) 63 %; Platelet Count 301 k/uL (150-450); RBC 4.24 m/uL (3.80-5.40)
[2018-05-01 07:37] LABS: Calcium 9.2 mg/dL (8.4-10.2); Magnesium 1.7 mg/dL (1.6-2.3); Potassium 4.4 mmol/L (3.5-5.1)
[2018-05-01 08:11] VITALS: RESP 16; TEMP 97
[2018-05-01] MEDS: CLOPIDOGREL 75 MG TAB PO SCH (08:23)
[2018-05-01] MEDS: CHOLECALCIFEROL 1,000 UNIT TAB PO SCH (08:23)
[2018-05-01] MEDS: VIT A,C & E-LUTEIN-MINERALS 1 EACH TAB PO SCH (08:23)
[2018-05-01] MEDS: METOPROLOL TARTRATE 50 MG TAB PO SCH (08:23)
[2018-05-01] MEDS ORDERED: ASPIRIN 81 MG PO SCH (09:00)
[2018-05-01] MEDS ORDERED: ATORVASTATIN 40 MG TAB PO SCH ×2 (09:00→21:00)
[2018-05-01] MEDS ORDERED: HYDROCHLOROTHIAZIDE 25 MG TAB PO SCH (09:00)
[2018-05-01] MEDS: Acetaminophen-Codeine 300-30mg TAB PO PRN (09:31)
[2018-05-01 10:16] LABS: Hemoglobin A1C 6.5 % (4.0-6.0)
[2018-05-01 11:18] LABS: Glucose,Whole Blood 101 mg/dL (75-99)
[2018-05-01 11:22] VITALS: BP 147/68; PULSE 62
[2018-05-01] MEDS: LOSARTAN 50 MG TAB PO SCH (11:55)
[2018-05-01] MEDS: amLODIPine 5 MG TAB PO SCH (11:55)
--- NOTE | 2018-05-01 12:39 | PN ---
PROGRESS NOTE Mrs. Brewster is an 83-year-old female with known history of coronary artery disease, diabetes who presented with non ST-segment elevation myocardial infarction, underwent cardiac catheterization, was found to have significant disease involving the mid LAD as well as the ostial proximal segment of the left circumflex, underwent stenting of both vessels. She is doing quite well this morning. She is denying any chest pain. Her breathing has been stable. She denies any dizziness or palpitation. She denies any nausea. She continued to be on amlodipine 5 mg twice a day, aspirin 81 mg daily, Lipitor 40 mg daily, Plavix 75 mg daily, glimepiride, losartan 50 mg twice a day, metoprolol tartrate 50 mg twice a day. PHYSICAL EXAMINATION: Blood pressure 147/60 with the heart in the 60s. LUNGS: Clear. HEART: Regular rate and rhythm. S1, S2. No S3 with systolic murmur. No diastolic murmur. ABDOMEN: Soft, nontender. RIGHT GROIN: No hematoma. LAB DATA: Lab data revealed BUN and creatinine 16 and 0.74, potassium 4.4, hemoglobin of 12.5. IMPRESSION: 1. Status post stenting of the left anterior descending artery and the left circumflex. 2. Non ST-segment elevation myocardial infarction. 3. History of hypertension. 4. Hyperlipidemia. 5. Diabetes mellitus. RECOMMENDATION: From the cardiac standpoint, she should be able to be discharged home today and follow as an outpatient with Dr. Isaiah Silva. MMODL / IJN: [id number] /
--- NOTE | 2018-05-02 09:45 | ECHOF ---
Referral Reason:Non STEMI MEASUREMENTS -------- HEIGHT: 149.9 cm WEIGHT: 66.7 kg BP: 186/78 IVSd: 1.2 cm (0.6 - 1.1) LVIDd: 3.9 cm (3.9 - 5.3) LVPWd: 1.1 cm (0.6 - 1.1) EDV(Teich): 66 ml IVSs: 1.5 cm LVIDs: 2.8 cm LVPWs: 1.6 cm %IVS Thck: 28 % ESV(Teich): 30 ml EF(Teich): 55 % %FS: 28 % SV(Teich): 36 ml LA Diam: 3.2 cm (2.7 - 3.8) RVIDd: 2.9 cm (< 3.3) LALs A4C: 6.0 cm LAAs A4C: 18.9 cm LAESV A-L A4C: 50 ml LAESV MOD A4C: 48 ml LALs A2C: 5.4 cm LAAs A2C: 14.1 cm LAESV A-L A2C: 31 ml LAESV MOD A2C: 30 ml LAESV(A-L): 41 ml LAESV Index (A-L): 25.55 ml/m Ao Diam: 3.2 cm (2.0 - 3.7) AV Cusp: 1.6 cm (1.5 - 2.6) EPSS: 0.2 cm MV E Adrian: 0.72 m/s MV DecT: 296 ms MV Dec Glasscock: 2.4 m/s MV A Adrian: 1.08 m/s MV E/A Ratio: 0.66 MV PHT: 86 ms AV Vmax: 1.53 m/s AV maxP.31 mmHg TR Vmax: 2.22 m/s TR maxP.64 mmHg RAP: 5.00 mmHg RVSP: 24.64 mmHg MV EF SLOPE: 74.05 mm/s (70 - 150) MV EXCURSION: 13.06 mm (> 18.000) FINDINGS -------- Sinus rhythm. This was a technically good study. The left ventricular size is normal. There is borderline concentric left ventricular hypertrophy. Overall left ventricular systolic function is normal with, an EF between 55 - 60 %. The right ventricle is normal in size. Normal LA size by volume 22+/-6 ml/m2. The right atrium is normal in size. There is mild aortic valve sclerosis. Mild mitral annular calcification present. Mild tricuspid regurgitation present. Right ventricular systolic pressure is normal at < 35 mmHg. Trace/mild (physiologic) pulmonic regurgitation. The aortic root size is normal. Normal inferior vena cava with normal inspiratory collapse consistent with estimated right atrial pre ssure of 5 mmHg. There is no pericardial effusion. CONCLUSIONS -------- 1. Sinus rhythm. 2. This was a technically good study. 3. The left ventricular size is normal. 4. There is borderline concentric left ventricular hypertrophy. 5. Overall left ventricular systolic function is normal with, an EF between 55 - 60 %. 6. The right ventricle is normal in size. 7. Normal LA size by volume 22+/-6 ml/m2. 8. The right atrium is normal in size. 9. There is mild aortic valve sclerosis. 10. Mild mitral annular calcification present. 11. Mild tricuspid regurgitation present. 12. Right ventricular systolic pressure is normal at < 35 mmHg. 13. Trace/mild (physiologic) pulmonic regurgitation. 14. The aortic root size is normal. 15. Normal inferior vena cava with normal inspiratory collapse consistent with estimated right atrial pressure of 5 mmHg. 16. There is no pericardial effusion. VISUAL ARTS TEACHER: Berenice Sampson RDCS
== END 2018-05-01 14:30 | disposition home or self-care (01) | DRG 247 ==
LOC: EC 08:12 → 3OBS 10:09 → 6SEL 10:54 → OBSVTOIN 04-29 08:59
PROVIDERS: ADMIT Family Medicine; ATTEND Family Medicine
PROC: B2111ZZ Fluoroscopy of Multiple Coronary Arteries using Low Osmolar Contrast (ICD-10-PCS; principal; 2018-04-30 10:42)
PROC: B2151ZZ Fluoroscopy of Left Heart using Low Osmolar Contrast (ICD-10-PCS; principal; 2018-04-30 10:42)
PROC: 4A023N7 Measurement of Cardiac Sampling and Pressure, Left Heart, Percutaneous Approach (ICD-10-PCS; principal; 2018-04-30 10:42)
PROC: 027035Z Dilation of Coronary Artery, One Artery with Two Drug-eluting Intraluminal Devices, Percutaneous Approach (ICD-10-PCS; 2018-04-30 10:42)
DX: I21.4 Non-ST elevation (NSTEMI) myocardial infarction (principal); E87.1 Hypo-osmolality and hyponatremia; I47.2 Ventricular tachycardia; J98.11 Atelectasis; E11.9 Type 2 diabetes mellitus without complications; E78.00 Pure hypercholesterolemia, unspecified; E78.5 Hyperlipidemia, unspecified; E83.42 Hypomagnesemia; E89.0 Postprocedural hypothyroidism; H35.30 Unspecified macular degeneration; H54.8 Legal blindness, as defined in USA; I69.398 Other sequelae of cerebral infarction; I10 Essential (primary) hypertension; I16.0 Hypertensive urgency; I25.110 Atherosclerotic heart disease of native coronary artery with unstable angina pectoris; I25.2 Old myocardial infarction; I45.10 Unspecified right bundle-branch block; K21.9 Gastro-esophageal reflux disease without esophagitis; M19.041 Primary osteoarthritis, right hand; M19.042 Primary osteoarthritis, left hand; Z79.02 Long term (current) use of antithrombotics/antiplatelets; Z79.82 Long term (current) use of aspirin; Z79.899 Other long term (current) drug therapy; Z82.49 Family history of ischemic heart disease and other diseases of the circulatory system; Z90.710 Acquired absence of both cervix and uterus; Z79.84 Long term (current) use of oral hypoglycemic drugs; Z79.890 Hormone replacement therapy; Z91.048 Other nonmedicinal substance allergy status; F41.9 Anxiety disorder, unspecified
CPT/HCPCS: 36415; 71046; 80048; 80053; 80061; 81003; 82550; 82553; 83036; 83735; 84484; 85025; 85347; 85610; 85730; 93005; 93306; 93458; 96365; 96375; 96376; 99291

== ENCOUNTER → 2018-05-05 | Outpatient (CLI) | payer MEDICARE, BC ==
[2018-05-05 09:05] LABS: Anion Gap 10 mmol/L; Blood Urea Nitrogen 16 mg/dL (7-17); Calcium 9.1 mg/dL (8.4-10.2); Carbon Dioxide 27 mmol/L (22-30); Chloride 99 mmol/L (98-107); Glucose 142 mg/dL (74-99); Potassium 4.9 mmol/L (3.5-5.1); Sodium 136 mmol/L (137-145)
[2018-05-05 09:15] LABS: Basophils # (A) 0.1 k/uL (0-0.2); Basophils % (A) 1 %; Eosinophils # (A) 0.2 k/uL (0-0.7); Eosinophils % (A) 4 %; HCT 38.9 % (34.0-46.0); HGB 12.4 gm/dL (11.4-16.0); Lymphocytes # (A) 1.6 k/uL (1.0-4.8); Lymphocytes % (A) 23 %; MCH 29.3 pg (25.0-35.0); MCHC 31.8 g/dL (31.0-37.0); MCV 92.2 fL (80.0-100.0); Mean Platelet Volume 6.7; Monocytes # (A) 0.6 k/uL (0-1.0); Monocytes % (A) 9 %; Neutrophils # (A) 4.3 k/uL (1.3-7.7); Neutrophils % (A) 62 %; Platelet Count 302 k/uL (150-450); RBC 4.22 m/uL (3.80-5.40); RDW 12.9 % (11.5-15.5); WBC 6.9 k/uL (3.8-10.6)
== END ==
LOC: LABWHC1 08:26
PROVIDERS: ATTEND Nurse Practitioner
DX: I21.4 Non-ST elevation (NSTEMI) myocardial infarction (principal); E87.1 Hypo-osmolality and hyponatremia
CPT/HCPCS: 36415; 80048; 85025

== ENCOUNTER 2018-07-20 17:00 | Emergency (ER) | payer MEDICARE, BC ==
[2018-07-20 17:08] VITALS: TEMP 97.5
--- NOTE | 2018-07-20 18:45 | XR ---
EXAMINATION TYPE: XR hand complete LT DATE OF EXAM: 07/20/2018 CLINICAL HISTORY: Laceration injury with pain. TECHNIQUE: Frontal, lateral and oblique images of the left hand are obtained. COMPARISON: None. FINDINGS: Osseous structures are demineralized. There is no acute fracture/dislocation evident in the left hand. There is fairly moderate degenerative changes throughout the phalanges with joint space n arrowing and spurring, involvement is most prominent second DIP joints and joints of the first finger . The overlying soft tissue appears unremarkable without radiodense foreign body seen. IMPRESSION: There is no acute fracture or dislocation in the left hand.
[2018-07-20] MEDS ORDERED: LIDOCAINE 1% INJ 10MG/ML (20 ML MDV) SQ STA (19:26)
--- NOTE | 2018-07-20 20:07 | ED ---
General Adult HPI - General Chief complaint: Wound/Laceration Stated complaint: Finger laceration Source: patient, family, RN notes reviewed, old records reviewed Mode of arrival: ambulatory Limitations: no limitations - History of Present Illness Initial comments: 83-year-old female patient on Plavix presents to ED with laceration to distal dorsal aspect of DIP joint, fourth digit on left hand. Patient does not involve the nailbed. Patient states that approximately 6 AM this morning she was a vertigo around and drawer when she cut herself on a closet organizer. Patient then wrapped in gauze, continued activities of daily life. Patient noticed that she continued to bleed throughout the day. Patient had to change her gauze approximately 3 or 4 times. Eventually patient decided that she should present to the ER have evaluated there. Patient denies any other acute complaints. Patient denies any other injury. Denies, chest pain, shortness of breath, abdominal pain, nausea vomiting diarrhea. Systemic: Pt denies fatigue, myalgia, fever/chills, rash. Pt denies weakness, night sweats, weight loss. Neuro: Pt denies headache, visual disturbances, syncope or pre-syncope. HEENT: Pt denies ocular discharge or irritation, otalgia, rhinorrhea, pharyngitis or notable lymphadenopathy. Cardiopulmonary: Pt denies chest pain, SOB, heart palpitations, dyspnea on exertion. Abdominal/GI: Pt denies abdominal pain, n/v/d. : Pt denies dysuria, burning w/ urination, frequency/urgency. Denies new onset urinary or bowel incontinence. MSK: Pt denies myalgia, loss of strength or function in extremities. - Related Data Home Medications Medication Instructions Recorded Confirmed Aspirin 81 mg PO HS 01/21/14 04/28/18 Clopidogrel [Plavix] 75 mg PO DAILY 01/21/14 04/28/18 Metoprolol Tartrate [Lopressor] 50 mg PO BID 01/21/14 04/28/18 Cholecalciferol [Vitamin D3] 1,000 unit PO DAILY 05/03/16 04/28/18 Vits A,C,E/Lutein/Minerals 2 tab PO DAILY 05/03/16 04/28/18 [Ocuvite with Lutein Tablet] Levothyroxine Sodium [Synthroid] 88 mcg PO DAILY 05/31/17 04/28/18 Gabapentin [Neurontin] 100 mg PO HS 04/28/18 04/28/18 Glimepiride [Amaryl] 1 mg PO AC-BRKFST 04/28/18 04/28/18 metFORMIN HCL [Glucophage] 500 mg PO BID 04/28/18 04/28/18 Previous Rx's Medication Instructions Recorded ALPRAZolam [Xanax] 0.25 mg PO DAILY PRN #30 06/05/17 Acetaminophen Tab [Tylenol] 500 mg PO Q6HR PRN tab 05/01/18 Atorvastatin Calcium [Lipitor] 40 mg PO HS #0 05/01/18 Losartan Potassium [Cozaar] 50 mg PO BID #60 tablet 05/01/18 Losartan [Cozaar] 50 mg PO BID #0 05/01/18 Nitroglycerin Sl Tabs [Nitrostat] 0.4 mg SUBLINGUAL Q5M PRN #25 tab 05/01/18 amLODIPine [Norvasc] 5 mg PO BID #180 tab 05/01/18 Allergies Allergy/AdvReac Type Severity Reaction Status Date / Time PAPER TAPE Allergy Rash/Hives Uncoded 07/20/18 17:08 Review of Systems ROS Statement: Those systems with pertinent positive or pertinent negative responses have been documented in the HPI. ROS Other: All systems not noted in ROS Statement are negative. 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 Last Myocardial Infarction Date:: 11/2011 History of Any Multi-Drug Resistant Organisms: None Reported Past Surgical History: Back Surgery, Breast Surgery, Heart Catheterization With Stent, Hysterectomy, Orthopedic Surgery, Tubal Ligation Additional Past Surgical History / Comment(s): RIGHT EYE CATARACT REMOVAL, LASER EYE SURGERY BILATERALLY, "TUBES IN EYES NOW OUT", THYROIDECTOMY D/T NODULES, TEMPORAL ARTERY BX, L BREAST BENIGN BX, LOW BACK SURGERY, R SHOULDER ROTATOR CUFF REPAIR, CERVICAL PAIN INJECTIONS. Past Anesthesia/Blood Transfusion Reactions: Previous Problems w/ Anesthesia Additional Past Anesthesia/Blood Transfusion Reaction / Comment(s): hard to wake up Date of Last Stent Placement:: 12/22/2011 Past Psychological History: Anxiety Smoking Status: Never smoker Past Alcohol Use History: None Reported Past Drug Use History: None Reported - Past Family History Mother Family Medical History: Myocardial Infarction ([place]) Additional Family Medical History / Comment(s): MOTHER OF A OR AT THE AGE OF 57YRS. Brother(s) Family Medical History: Myocardial Infarction ([place]) Additional Family Medical History / Comment(s): BROTHER OF A OR AT THE AGE OF 60YRS. Father Family Medical History: No Reported History Additional Family Medical History / Comment(s): FATHER LIVED TO BE 90YRS OLD. General Exam - General Exam Comments Initial Comments: Constitutional: NAD, AOX3, Pt has pleasant affect. HEENT: NC/AT, trachea midline, neck supple, no lymphadenopathy. Posterior pharynx non erythematous, without exudates. External ears appear normal, without discharge. Mucous membranes moist. Eyes PERRLA, EOM intact. There is no scleral icterus. No pallor noted. Cardiopulmonary: RRR, no murmurs, rubs or gallops, no JVD noted. Lungs CTAB in anterior and posterior tsai. No peripheral edema. Abdominal exam: Abdomen soft and non-distended. Abdomen non-tender to palpation in all 4 quadrants. Bowel sounds active in LLQ. No hepatosplenomegaly. Neuro: CN II-XII grossly intact. MSK: 2 cm laceration to distal dorsal aspect of DIP joint, fourth digit on left hand, spares the nail bed. Radial pulse +2 bilaterally. Capillary refill less than 2 seconds bilaterally. Sensation intact. Neurovascularly intact before and after suture placement. Limitations: no limitations Course Vital Signs 07/20/18 07/20/18 07/20/18 17:05 19:30 20:48 Temperature 97.5 F L Pulse Rate 62 64 Respiratory 20 16 Rate Blood Pressure 190/81 191/81 183/70 O2 Sat by Pulse 98 94 L Oximetry Procedures - Laceration Laceration #1 Consent Obtained: verbal consent Time Out Performed: Yes Indication: laceration Site: hand Size (cm): 2 Description: linear Depth: simple, single layer Anesthetic Used: lidocaine 1% Anesthesia Technique: local infiltration Pre-repair: wound explored, irrigated extensively Type of Sutures: nylon Size of Sutures: 5-0 Number of Sutures: 4 Technique: simple, interrupted Patient Tolerated Procedure: well Medical Decision Making - Medical Decision Making 83-year-old female patient presents to ED with laceration to fourth digit left hand. Patient had no other complaints. Wound was closed by primary intention via for simple interrupted sutures. Patient tolerated procedure well. Plain film did not display acute fracture. Patient was moderately hypertensive in ED. Patient states that she'll take her prescribed blood pressure medication at home. Patient states that she will monitor her blood pressure at home. Patient will return to ED if any new signs or symptoms develop including headache, changes in vision, weakness, paresthesias. Patient additionally monitor her sutures. Patient will return to ED if any new signs symptoms develop including redness, discharge, new pain, numbness. Patient to follow-up with PCP in one to days. Patient to return to ED to have sutures removed in 7- 10 days. Patient had tetanus updated last year, did not require reimmunization. Case discussed with Dr. Pruett. Disposition Clinical Impression: Laceration Disposition: HOME SELF-CARE Condition: Good Instructions: Laceration (ED) Additional Instructions: Patient to adhere to previously discussed treatment plan and will take medication(s) as directed. Patient to follow up with PCP in 1-2 days. Patient to return to ED if symptoms do not improve. Is patient prescribed a controlled substance at d/c from ED?: No Referrals: Anthony Cameron MD [Primary Care Provider] - 1-2 days Time of Disposition: 20:52
[2018-07-20 20:49] VITALS: BP 183/70; PULSE 64; RESP 16
== END 2018-07-20 21:00 | disposition home or self-care (01) ==
LOC: EC 17:00
DX: S61.215A Laceration without foreign body of left ring finger without damage to nail, initial encounter (principal); I25.10 Atherosclerotic heart disease of native coronary artery without angina pectoris; E11.9 Type 2 diabetes mellitus without complications; I10 Essential (primary) hypertension; I25.2 Old myocardial infarction; E07.9 Disorder of thyroid, unspecified; F41.9 Anxiety disorder, unspecified; Z79.82 Long term (current) use of aspirin; Z79.02 Long term (current) use of antithrombotics/antiplatelets; Z79.84 Long term (current) use of oral hypoglycemic drugs; Z79.899 Other long term (current) drug therapy; Z91.048 Other nonmedicinal substance allergy status; Z86.73 Personal history of transient ischemic attack (TIA), and cerebral infarction without residual deficits; Z95.5 Presence of coronary angioplasty implant and graft; Z90.89 Acquired absence of other organs; Z90.710 Acquired absence of both cervix and uterus; Z98.51 Tubal ligation status; W27.4XXA Contact with kitchen utensil, initial encounter; Y93.G3 Activity, cooking and baking; Y92.000 Kitchen of unspecified non-institutional (private) residence as the place of occurrence of the external cause
CPT/HCPCS: 73130; 99283; 12001; J2001

== ENCOUNTER → 2018-08-06 | Outpatient (CLI) | payer MEDICARE, BC ==
--- NOTE | 2018-08-06 15:01 | MR ---
EXAMINATION TYPE: MR lumbar spine wo/w con DATE OF EXAM: 08/06/2018 COMPARISON: HISTORY: low back pain CONTRAST: 7.5 mL intravenous Gadavist. TECHNIQUE: Multiplanar, multisequence images of the lumbar spine were acquired. FINDINGS: Cord terminates at the L1 level. L5-S1: Disc bulging is present with mild anterior thecal sac compression. Mild AP spinal canal stenos is is present measuring 0.8 cm. Facet hypertrophy is present, greater on the left with some left late ral thecal sac impression. Foraminal stenosis on the left is present to mild degree. L4-L5: Broad-based disc bulge has moderate anterior thecal sac flattening. Marked facet hypertrophy a nd ligamentum flavum laxity has lateral canal stenosis is contributing to spinal canal stenosis. Mode rate to severe bilateral foraminal stenosis is present. L3-L4: Disc bulge has mild anterior thecal sac compression. Facet hypertrophy contributes to spinal c anal narrowing. Severe right foraminal stenosis present. Moderate to severe left foraminal stenosis i s present. There is a suggestion of a mild grade 1 spondylolisthesis of C3 anterior on C4 with disc u ncovering. L2-L3: Disc bulge has anterior thecal sac compression. Facet hypertrophy is posterior lateral thecal sac compression. Spinal canal narrowing is present. Severe right and moderate left foraminal stenosis is present. L1-L2: Disc bulge has mild anterior thecal sac compression. Facet hypertrophy is present greater on t he right with lateral thecal sac compression. Moderate to severe right foraminal stenosis is present. Severe left foraminal stenosis is present. T12-L1: There is a small central protrusion with mild anterior thecal sac compression. No spinal alejandro l stenosis cord contact or neural foraminal stenosis is present. No abnormal enhancement. IMPRESSION: 1. Spinal canal stenosis L5-S1 secondary to disc bulge and facet hypertrophy. 2. Spinal canal stenosis L4-5 secondary to marked facet hypertrophy and ligamentum flavum laxity. 3. Mild disc bulge L3-4 with anterior thecal sac compression. Facet hypertrophy contributes to spinal canal narrowing at this level. 4. Disc bulging L2-3, L1-2 with mild anterior thecal sac compression. Small central protrusion is pre sent T12-L1. 5. Multilevel moderate to severe foraminal stenosis appears greatest bilaterally at L4-5, L3-4, and o n the right at L2-3.
== END | disposition home or self-care (01) ==
LOC: RADMRIMAIN 11:57
PROVIDERS: ATTEND Orthopaedic Surgery Orthopaedic Surgery of the Spine
DX: M48.061 Spinal stenosis, lumbar region without neurogenic claudication (principal); M99.73 Connective tissue and disc stenosis of intervertebral foramina of lumbar region; M51.25 Other intervertebral disc displacement, thoracolumbar region; M24.28 Disorder of ligament, vertebrae; M46.86 Other specified inflammatory spondylopathies, lumbar region; E11.9 Type 2 diabetes mellitus without complications; I25.2 Old myocardial infarction; G45.9 Transient cerebral ischemic attack, unspecified; Z95.5 Presence of coronary angioplasty implant and graft; Z79.02 Long term (current) use of antithrombotics/antiplatelets
CPT/HCPCS: 72158; A9585

== ENCOUNTER → 2018-09-25 | Outpatient (CLI) | payer MEDICARE, BC ==
[2018-09-25 11:27] VITALS: BP 197/83; PULSE 71; RESP 18
--- NOTE | 2018-09-25 11:50 | P.CONS ---
History of Present Illness - Reason for Consult Consult date: 09/25/18 - Chief Complaint Lower back pain - History of Present Illness This is an 83-year-old lady with chronic history of lower back pain and significant coronary artery disease. The pain goes across her lower back and down her right leg to the mid calf area with numbness and tingling in the right lower extremity, however the patient states that she had this numbness since her last stroke which resulted in weakness and numbness on the right side of her body as she states. The pain gets worse by any activity and that's why the patient spends most of her time sitting in her she did have an MRI in April 2018 and she has been on Plavix since then. The last coronary stent she had was in 2011. The patient denies any bowel or bladder dysfunction except for constipation due to treatment with Tylenol 3 which helps control her pain mildly. 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 Last Myocardial Infarction Date:: 11/2011 History of Any Multi-Drug Resistant Organisms: None Reported Past Surgical History: Back Surgery, Breast Surgery, Heart Catheterization With Stent, Hysterectomy, Orthopedic Surgery, Tubal Ligation Additional Past Surgical History / Comment(s): RIGHT EYE CATARACT REMOVAL, LASER EYE SURGERY BILATERALLY, "TUBES IN EYES NOW OUT", THYROIDECTOMY D/T NODULES, TEMPORAL ARTERY BX, L BREAST BENIGN BX, LOW BACK SURGERY, R SHOULDER ROTATOR CUFF REPAIR, CERVICAL PAIN INJECTIONS. Past Anesthesia/Blood Transfusion Reactions: Previous Problems w/ Anesthesia Additional Past Anesthesia/Blood Transfusion Reaction / Comm: hard to wake up Date of Last Stent Placement:: 12/22/2011 Smoking Status: Never smoker - Past Family History Mother Family Medical History: Myocardial Infarction ([place]) Additional Family Medical History / Comment(s): MOTHER OF A IN AT THE AGE OF 57YRS. Brother(s) Family Medical History: Myocardial Infarction ([place]) Additional Family Medical History / Comment(s): BROTHER OF A IN AT THE AGE OF 60YRS. Father Family Medical History: No Reported History Additional Family Medical History / Comment(s): FATHER LIVED TO BE 90YRS OLD. Medications and Allergies Home Medications Medication Instructions Recorded Confirmed Type Aspirin 81 mg PO HS 01/21/14 09/25/18 History Clopidogrel [Plavix] 75 mg PO DAILY 01/21/14 09/25/18 History Metoprolol Tartrate [Lopressor] 50 mg PO BID 01/21/14 09/25/18 History Cholecalciferol [Vitamin D3] 1,000 unit PO DAILY 05/03/16 09/25/18 History Vits A,C,E/Lutein/Minerals 2 tab PO DAILY 05/03/16 09/25/18 History [Ocuvite with Lutein Tablet] Levothyroxine Sodium [Synthroid] 88 mcg PO DAILY 05/31/17 09/25/18 History ALPRAZolam [Xanax] 0.25 mg PO DAILY PRN #30 06/05/17 09/25/18 Rx Glimepiride [Amaryl] 1 mg PO AC-BRKFST 04/28/18 09/25/18 History metFORMIN HCL [Glucophage] 500 mg PO BID 04/28/18 09/25/18 History Acetaminophen Tab [Tylenol] 500 mg PO Q6HR PRN tab 05/01/18 09/25/18 Rx Losartan Potassium [Cozaar] 50 mg PO BID #60 tablet 05/01/18 09/25/18 Rx Nitroglycerin Sl Tabs [Nitrostat] 0.4 mg SUBLINGUAL Q5M PRN #25 tab 05/01/18 Rx Acetaminophen with Codeine 1 tab PO Q6H PRN 09/25/18 09/25/18 History [Tylenol w/codeine #3] Atorvastatin Calcium [Lipitor] 80 mg PO HS 09/25/18 09/25/18 History Furosemide [Lasix] 20 mg PO DAILY 09/25/18 09/25/18 History Hydrochlorothiazide 12.5 mg PO DAILY 09/25/18 09/25/18 History Allergies Allergy/AdvReac Type Severity Reaction Status Date / Time PAPER TAPE Allergy Rash/Hives Uncoded 09/25/18 11:14 Physical Exam Vitals: Vital Signs Pulse Resp BP Pulse Ox 09/25/18 11:23 71 18 197/83 97 Intake and Output 09/24/18 09/25/18 09/25/18 22:59 06:59 14:59 Other: Weight 70.76 kg - Constitutional General appearance: cooperative, morbidly obese, no acute distress, obese - EENT Eyes: PERRLA - Respiratory Respiratory: bilateral: CTA - Cardiovascular Rhythm: regular Heart sounds: normal: S1, S2 - Neurologic The patient has stiffness in her right leg with possible dystonia. Limited range of motion of the right knee joint. Straight leg raising test negative bilaterally. Significant tenderness around the right sacroiliac joint. Also positive tenderness in the lumbar paravertebral area. She has well-healed small scar from her previous back surgery. Oral symmetrical absent ankle reflexes bilaterally. She has normal muscle strength in the left lower extremity and decreased strength in the right lower extremity to 3 out of 5 for knee flexion and extension hip adduction and abduction and 4 out of 5 for ankle flexion and extension. Neurologic: CNII-XII intact - Psychiatric Psychiatric: A&O x's 3, appropriate affect, intact judgment & insight Assessment and Plan Plan: This is an 83-year-old female with what seems to be a combination of lower back pain due to lumbar spondylosis without myelopathy and lumbar radiculopathy. She also may have right sacroiliitis. She has significant history for coronary artery disease and stroke which resulted in right hemiparesis. Treatment with Plavix Diabetes What seems to be previous limited lumbar laminectomy I will schedule the patient to have right sacroiliac joint steroid injection under fluoroscopic guidance. We do not have to hold Plavix for this procedure however we have to hold pressure after this procedure is done on the sacroiliac joint. The patient may need in the future lumbar epidural steroid injection and some other spinal injections however for these injections will need to hold her Plavix for 5-7 days. The patient is to continue using Tylenol 3 I encouraged her to use bowel stimulants with it to avoid constipation. I thank you for the referral
== END ==
LOC: PNWHC3 10:49
PROVIDERS: ATTEND Anesthesiology
DX: M47.26 Other spondylosis with radiculopathy, lumbar region (principal); I25.10 Atherosclerotic heart disease of native coronary artery without angina pectoris; E11.9 Type 2 diabetes mellitus without complications; Z79.02 Long term (current) use of antithrombotics/antiplatelets; Z86.73 Personal history of transient ischemic attack (TIA), and cerebral infarction without residual deficits; Z91.048 Other nonmedicinal substance allergy status; Z79.899 Other long term (current) drug therapy; Z79.84 Long term (current) use of oral hypoglycemic drugs; Z79.82 Long term (current) use of aspirin
CPT/HCPCS: 99211

== ENCOUNTER 2018-10-04 11:00 | Day surgery (SDC) | payer MEDICARE, BC ==
[2018-10-02 09:44] VITALS: BMI 31.5
[2018-10-04 10:40] VITALS: TEMP 97.3
[~2018-10-04 11:00] MED LIST: LACTATED RINGERS 1,000 ML IV ONE; SODIUM CHLORIDE 0.9% 500 ML 500 ML IV SCH
--- NOTE | 2018-10-04 11:13 | P.PCN ---
Date of Procedure: 10/04/18 Procedure(s) Performed: Procedure= Right sacral iliac joints steroid injection under fluoroscopy guidance Preoperative diagnosis= 1-sacroiliitis 2-lumbar postlaminectomy pain syndrome. Postoperative diagnosis=1-sacroiliitis 2-lumbar postlaminectomy pain syndrome Complication = none Condition= stable Anesthesia= moderate sedation with intravenous Versed 1 mg , and local infiltration with lidocaine 1% 2 mL Indication for the procedure= patient complaining of low back pain , examination was positive for severe tenderness over the right sacroiliac joints and patient diagnosed with sacroiliitis, for this reason , she was good candidate for sacroiliac joint steroid injection. Description of the procedure= procedure risk and benefits discussed with the patient, including but not limited, risk of infection and bleeding, and ALLERGIC reaction to the medication and not complete pain relief and patient agreed with the preceding patient taken to the operating room, placed in prone position or standard monitors applied to the patient then after induction of anesthesia back prepped with chlorhexidine 3 times , Then under strict sterile technique, first I did the right sacroiliac joint the which was identified under fluoroscopy guidance been local infiltration of the skin and subcu interstitial with lidocaine 1% then 25-gauge Quincke Needle advanced slowly under fluoroscopy and placed in the right sacroiliac joint needle placement confirmed with AP and oblique and lateral view and after appropriate needle placement confirmed and after negative aspiration, or heme , then Ropivacaine 0.5% 3 mL, and 40 mg of Depo-medrol mixed together and injected in the right sacroiliac joint after negative aspiration patient tolerated the procedure well without any complication.well that any complications and she will follow up in clinic 3 weeks
[2018-10-04] MEDS ORDERED: IV FLUID CONTINUATION 1,000 ML IV ONE (11:35)
--- NOTE | 2018-10-04 11:40 | FL ---
EXAMINATION TYPE: FL guided pain mgmt statistic DATE OF EXAM: 10/04/2018 HISTORY: Pain R SI joint injection, 2 sec fl time
[2018-10-04] MEDS ORDERED: LABETALOL 5 MG/ML VIAL MDV IVP ONE (11:58)
[2018-10-04 12:00] VITALS: RESP 16
[2018-10-04 12:11] VITALS: BP 188/79; PULSE 66
[2018-10-09 10:32] LABS: Glucose,Whole Blood 138 mg/dL (75-99)
== END 2018-10-04 13:30 | disposition home or self-care (01) ==
LOC: ORPAIN 11:00
PROVIDERS: ATTEND Anesthesiology
DX: M46.1 Sacroiliitis, not elsewhere classified (principal); M96.1 Postlaminectomy syndrome, not elsewhere classified; M47.26 Other spondylosis with radiculopathy, lumbar region; I25.10 Atherosclerotic heart disease of native coronary artery without angina pectoris; G89.29 Other chronic pain; E78.5 Hyperlipidemia, unspecified; Z95.5 Presence of coronary angioplasty implant and graft; E11.9 Type 2 diabetes mellitus without complications; K21.9 Gastro-esophageal reflux disease without esophagitis; I10 Essential (primary) hypertension; I25.2 Old myocardial infarction; M19.90 Unspecified osteoarthritis, unspecified site; E07.9 Disorder of thyroid, unspecified; I69.998 Other sequelae following unspecified cerebrovascular disease; H54.8 Legal blindness, as defined in USA; Z82.49 Family history of ischemic heart disease and other diseases of the circulatory system; Z79.82 Long term (current) use of aspirin; Z79.02 Long term (current) use of antithrombotics/antiplatelets; Z79.890 Hormone replacement therapy; Z91.048 Other nonmedicinal substance allergy status; Z79.84 Long term (current) use of oral hypoglycemic drugs; Z79.899 Other long term (current) drug therapy
CPT/HCPCS: J2250; J1030; G0260; 27096

== ENCOUNTER 2018-10-18 07:44 | Day surgery (SDC) | payer MEDICARE, BC ==
[2018-10-16 13:58] VITALS: BMI 31.5
[2018-10-18 08:43] VITALS: TEMP 97
--- NOTE | 2018-10-18 08:46 | P.PCN ---
Date of Procedure: 10/18/18 Anesthesia: local Description of Procedure: Procedure: Sacroiliac joint injection Preoperative diagnosis: Right Sacroiliitis Postoperative diagnosis: Right Sacroiliitis Complication: none Anesthesia: conscious sedation and local with 1% lidocaine Description of the procedure: procedure risk and benefits discussed with the patient, including but not limited, risk of infection and bleeding, and allergic reaction to the medication and incomplete pain relief. Patient agreed and signed consent. Patient was taken to the room and placed in a prone position. Chlorhexidine was used to cleanse the skin. Under sterile conditions patient skin was anesthetized 1% lidocaine. Subcutaneous tissues were also anesthetized with a total 2 mL of 1% lidocaine. After that 25 spinal needle was advanced through the anesthetized location. Needle was advanced into the inferior portion of the sacroiliac joint. IV contrast was used to confirm spread within the joint. After adequate spread was achieved, 2.5 ML's of 0.5% ropivacaine with 40 mg of triamcinolone was injected into the joint. Patient tolerated the procedure well. Sent to the recovery room in stable condition. Patient will follow up in the clinic in 4-8 weeks' time
[2018-10-18 08:54] LABS: Glucose,Whole Blood 131 mg/dL (75-99)
[2018-10-18 09:15] VITALS: RESP 18
[2018-10-18 09:34] VITALS: BP 159/59; PULSE 72
--- NOTE | 2018-10-18 13:11 | FL ---
EXAMINATION TYPE: FL guided pain mgmt statistic DATE OF EXAM: 10/18/2018 FLUOROSCOPY Fluoroscopy time of 2 seconds was used during low right SI joint injection for low back pain. 1 image Document/s the procedure.
== END 2018-10-18 09:43 | disposition home or self-care (01) ==
LOC: ORPAIN 07:44
PROVIDERS: ATTEND Hospitalist
DX: M46.1 Sacroiliitis, not elsewhere classified (principal); M47.816 Spondylosis without myelopathy or radiculopathy, lumbar region; I25.10 Atherosclerotic heart disease of native coronary artery without angina pectoris; K21.9 Gastro-esophageal reflux disease without esophagitis; E78.5 Hyperlipidemia, unspecified; I10 Essential (primary) hypertension; I69.351 Hemiplegia and hemiparesis following cerebral infarction affecting right dominant side; I69.398 Other sequelae of cerebral infarction; H54.8 Legal blindness, as defined in USA; H35.30 Unspecified macular degeneration; E11.319 Type 2 diabetes mellitus with unspecified diabetic retinopathy without macular edema; G43.909 Migraine, unspecified, not intractable, without status migrainosus; M19.042 Primary osteoarthritis, left hand; M19.041 Primary osteoarthritis, right hand; M19.90 Unspecified osteoarthritis, unspecified site; E89.0 Postprocedural hypothyroidism; I25.2 Old myocardial infarction; Z95.5 Presence of coronary angioplasty implant and graft; Z79.02 Long term (current) use of antithrombotics/antiplatelets; Z79.899 Other long term (current) drug therapy; Z79.84 Long term (current) use of oral hypoglycemic drugs; Z79.890 Hormone replacement therapy; Z79.82 Long term (current) use of aspirin; Z91.048 Other nonmedicinal substance allergy status; Z98.51 Tubal ligation status
CPT/HCPCS: J1100; G0260; 27096

== ENCOUNTER 2018-10-18 17:25 | Inpatient (IN) | payer MEDICARE, BC ==
[2018-10-18] MEDS ORDERED: NITROGLYCERIN OINT 1 INCH/GM PACKET TOPICAL STA (18:41)
--- NOTE | 2018-10-18 18:46 | ED ---
General Adult HPI - General Chief complaint: Chest Pain Stated complaint: chest pain Time Seen by Provider: 10/18/18 17:52 Source: patient Mode of arrival: ambulatory Limitations: no limitations - History of Present Illness Initial comments: Dictation was produced using [employer] dictation software. please excuse any grammatical, word or spelling errors. Chief Complaint: 83-year-old female with extensive history of coronary artery disease, CVA, multiple stents, chronic back pain, myocardial infarctions presents with chest pain 1 day. History of Present Illness: Patient presents with chest pain 1 day. Patient states that today she had back injections to treat chronic back pain performed by pain specialist. Patient states that was uneventful. She was at home which she developed crushing substernal chest pressure. States that there is no radiation to the shoulders. She does have her complain of some nausea. No diaphoresis. Patient had recent cardiac cath with multiple stents. Patient states that her symptoms feel like a recent heart attack that she is had. Patient reports that she had just recovered from flulike symptoms. The ROS documented in this emergency department record has been reviewed and confirmed by me. Those systems with pertinent positive or negative responses have been documented in the HPI. All other systems are other negative and/or noncontributory. PHYSICAL EXAM: General Impression: Alert and oriented x3, acute distress secondary to pain HEENT: Normocephalic atraumatic, extra-ocular movements intact, pupils equal and reactive to light bilaterally, mucous membranes moist. Cardiovascular: Heart regular rate and rhythm, S1&S2 audible, no murmurs, rubs or gallops Chest: Lungs clear to auscultation bilaterally, no rhonchi, no wheeze, no rales Abdomen: Bowel sounds present, abdomen soft, non-tender, non-distended, no organomegaly Musculoskeletal: Pulses present and equal in all extremities, no peripheral edema Motor: Power 5/5 bilaterally, no focal deficits noted Neurological: CN II-XII grossly intact, no focal motor or sensory deficits noted Skin: Intact with no visualized rashes Psych: Normal affect and mood ED course: 83-year-old female presents with chest pain concerning for acute coronary syndrome. Signs upon arrival shows heart rate of 101, blood pressure 170/70, rest of vital signs within acceptable limits. Medication list was reviewed. Patient started on heparin. Laboratory evaluation obtained. CBC, coag panel, d-dimer is negative. Patient has a sodium of 126. She does however have hyperglycemia 439 and this is likely pseudohyponatremia. Patient does have a mild anion gap acidosis. Serial EKGs were performed without any dynamic changes. Chest x-ray is unremarkable. While waiting to be transferred to the floor patient began having severe chest pain. She was applied a nitro paste. CT angios of the chest obtained. CT angios the chest is unremarkable. Patient to be admitted to inpatient for surgery troponins, intravenous fluids. EKG interpretation: Ventricular rate 99, normal sinus rhythm,. 184, QRS 120, QTc 500, right bundle branch block. No UT prolongation, no QTC prolongation, no ST or T-wave changes noted. No findings to suggest use ST segment elevation [place] - Related Data Home Medications Medication Instructions Recorded Confirmed Aspirin 81 mg PO HS 01/21/14 10/18/18 Clopidogrel [Plavix] 75 mg PO DAILY 01/21/14 10/18/18 Metoprolol Tartrate [Lopressor] 50 mg PO BID 01/21/14 10/18/18 Cholecalciferol [Vitamin D3] 1,000 unit PO DAILY 05/03/16 10/18/18 Vits A,C,E/Lutein/Minerals 2 tab PO DAILY 05/03/16 10/18/18 [Ocuvite with Lutein Tablet] Levothyroxine Sodium [Synthroid] 88 mcg PO DAILY 05/31/17 10/18/18 Glimepiride [Amaryl] 1 mg PO AC-BRKFST 04/28/18 10/18/18 metFORMIN HCL [Glucophage] 500 mg PO BID 04/28/18 10/18/18 Acetaminophen with Codeine 1 tab PO Q6H PRN 09/25/18 10/18/18 [Tylenol w/codeine #3] Furosemide [Lasix] 20 mg PO DAILY 09/25/18 10/18/18 Hydrochlorothiazide 12.5 mg PO DAILY 09/25/18 10/18/18 Atorvastatin [Lipitor] 80 mg PO HS 10/18/18 10/18/18 Previous Rx's Medication Instructions Recorded ALPRAZolam [Xanax] 0.25 mg PO DAILY PRN #30 06/05/17 Acetaminophen Tab [Tylenol] 500 mg PO Q6HR PRN tab 09/04/18 Losartan Potassium [Cozaar] 50 mg PO BID #60 tablet 05/01/18 Nitroglycerin Sl Tabs [Nitrostat] 0.4 mg SUBLINGUAL Q5M PRN #25 tab 05/01/18 Allergies Allergy/AdvReac Type Severity Reaction Status Date / Time PAPER TAPE Allergy Rash/Hives Uncoded 10/18/18 08:39 Review of Systems ROS Statement: Those systems with pertinent positive or pertinent negative responses have been documented in the HPI. ROS Other: All systems not noted in ROS Statement are negative. 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 Last Myocardial Infarction Date:: 04/2018 History of Any Multi-Drug Resistant Organisms: None Reported Past Surgical History: Back Surgery, Breast Surgery, Heart Catheterization With Stent, Hysterectomy, Orthopedic Surgery, Tubal Ligation Additional Past Surgical History / Comment(s): RIGHT EYE CATARACT REMOVAL, LASER EYE SURGERY BILATERALLY, "TUBES IN EYES NOW OUT", THYROIDECTOMY D/T NODULES, TEMPORAL ARTERY BX, L BREAST BENIGN BX, LOW BACK SURGERY, R SHOULDER ROTATOR CUFF REPAIR, CERVICAL PAIN INJECTIONS. Past Anesthesia/Blood Transfusion Reactions: Previous Problems w/ Anesthesia Additional Past Anesthesia/Blood Transfusion Reaction / Comment(s): hard to wake up Date of Last Stent Placement:: 12/22/2011 Past Psychological History: Anxiety Smoking Status: Never smoker - Past Family History Mother Family Medical History: Myocardial Infarction ([place]) Additional Family Medical History / Comment(s): MOTHER OF A [place] AT THE AGE OF 57YRS. Brother(s) Family Medical History: Myocardial Infarction ([place]) Additional Family Medical History / Comment(s): BROTHER OF A [place] AT THE AGE OF 60YRS. Father Family Medical History: No Reported History Additional Family Medical History / Comment(s): FATHER LIVED TO BE 90YRS OLD. General Exam Limitations: no limitations Course Vital Signs 10/18/18 10/18/18 10/18/18 17:29 18:00 19:00 Temperature 97.9 F Pulse Rate 99 101 H 97 Respiratory 18 16 18 Rate Blood Pressure 200/75 178/70 205/84 O2 Sat by Pulse 100 98 96 Oximetry 10/18/18 10/18/18 10/18/18 19:24 20:00 20:52 Temperature Pulse Rate 101 H 100 94 Respiratory 20 22 18 Rate Blood Pressure 197/77 190/76 184/80 O2 Sat by Pulse 98 99 99 Oximetry 10/18/18 21:34 Temperature Pulse Rate 90 Respiratory 20 Rate Blood Pressure 171/72 O2 Sat by Pulse 99 Oximetry Medical Decision Making - Lab Data Result diagrams: 10/18/18 18:03 10/18/18 18:03 Lab Results 10/18/18 10/18/18 10/18/18 Range/Units 18:03 18:03 18:03 WBC 4.9 (3.8-10.6) k/uL RBC 4.51 (3.80-5.40) m/uL Hgb 13.5 (11.4-16.0) gm/dL Hct 41.1 (34.0-46.0) % MCV 91.0 (80.0-100.0) fL MCH 29.9 (25.0-35.0) pg MCHC 32.9 (31.0-37.0) g/dL RDW 13.0 (11.5-15.5) % Plt Count 281 (150-450) k/uL Neutrophils % 88 % Lymphocytes % 9 % Monocytes % 2 % Eosinophils % 1 % Basophils % 0 % Neutrophils # 4.3 (1.3-7.7) k/uL Lymphocytes # 0.4 L (1.0-4.8) k/uL Monocytes # 0.1 (0-1.0) k/uL Eosinophils # 0.0 (0-0.7) k/uL Basophils # 0.0 (0-0.2) k/uL PT (9.0-12.0) sec INR (<1.2) APTT (22.0-30.0) sec D-Dimer (<0.60) mg/L FEU Sodium 126 L (137-145) mmol/L Potassium 4.9 (3.5-5.1) mmol/L Chloride 85 L (98-107) mmol/L Carbon Dioxide 26 (22-30) mmol/L Anion Gap 15 mmol/L BUN 21 H (7-17) mg/dL Creatinine 0.81 (0.52-1.04) mg/dL Est GFR (CKD-EPI)AfAm 77 (>60 ml/min/1.73 sqM) Est GFR (CKD-EPI)NonAf 67 (>60 ml/min/1.73 sqM) Glucose 439 H (74-99) mg/dL Calcium 8.9 (8.4-10.2) mg/dL Magnesium 1.6 (1.6-2.3) mg/dL Total Bilirubin 0.5 (0.2-1.3) mg/dL AST 23 (14-36) U/L ALT 27 (9-52) U/L Alkaline Phosphatase 142 H (38-126) U/L Troponin I (0.000-0.034) ng/mL NT-Pro-B Natriuret Pep 227 pg/mL Total Protein 7.5 (6.3-8.2) g/dL Albumin 4.7 (3.5-5.0) g/dL 10/18/18 10/18/18 Range/Units 18:03 18:03 WBC (3.8-10.6) k/uL RBC (3.80-5.40) m/uL Hgb (11.4-16.0) gm/dL Hct (34.0-46.0) % MCV (80.0-100.0) fL MCH (25.0-35.0) pg MCHC (31.0-37.0) g/dL RDW (11.5-15.5) % Plt Count (150-450) k/uL Neutrophils % % Lymphocytes % % Monocytes % % Eosinophils % % Basophils % % Neutrophils # (1.3-7.7) k/uL Lymphocytes # (1.0-4.8) k/uL Monocytes # (0-1.0) k/uL Eosinophils # (0-0.7) k/uL Basophils # (0-0.2) k/uL PT 9.5 (9.0-12.0) sec INR 0.9 (<1.2) APTT 27.5 (22.0-30.0) sec D-Dimer 0.28 (<0.60) mg/L FEU Sodium (137-145) mmol/L Potassium (3.5-5.1) mmol/L Chloride (98-107) mmol/L Carbon Dioxide (22-30) mmol/L Anion Gap mmol/L BUN (7-17) mg/dL Creatinine (0.52-1.04) mg/dL Est GFR (CKD-EPI)AfAm (>60 ml/min/1.73 sqM) Est GFR (CKD-EPI)NonAf (>60 ml/min/1.73 sqM) Glucose (74-99) mg/dL Calcium (8.4-10.2) mg/dL Magnesium (1.6-2.3) mg/dL Total Bilirubin (0.2-1.3) mg/dL AST (14-36) U/L ALT (9-52) U/L Alkaline Phosphatase (38-126) U/L Troponin I <0.012 (0.000-0.034) ng/mL NT-Pro-B Natriuret Pep pg/mL Total Protein (6.3-8.2) g/dL Albumin (3.5-5.0) g/dL Disposition Clinical Impression: Chest pain Disposition: ADMITTED IP TO THIS HOSP Condition: Fair Referrals: Anthony Cameron MD [Primary Care Provider] - 1-2 days Decision Time: 21:55
[2018-10-18 19:03] LABS: Basophils % (A) 0 %; Eosinophils % (A) 1 %; HCT 41.1 % (34.0-46.0); HGB 13.5 gm/dL (11.4-16.0); Lymphocytes # (A) 0.4 k/uL (1.0-4.8); Lymphocytes % (A) 9 %; MCH 29.9 pg (25.0-35.0); MCHC 32.9 g/dL (31.0-37.0); Mean Platelet Volume 7.3; Monocytes # (A) 0.1 k/uL (0-1.0); Monocytes % (A) 2 %; Neutrophils # (A) 4.3 k/uL (1.3-7.7); Neutrophils % (A) 88 %; Platelet Count 281 k/uL (150-450); RBC 4.51 m/uL (3.80-5.40); WBC 4.9 k/uL (3.8-10.6)
[2018-10-18 19:12] LABS: Albumin 4.7 g/dL (3.5-5.0); Calcium 8.9 mg/dL (8.4-10.2); Magnesium 1.6 mg/dL (1.6-2.3); Potassium 4.9 mmol/L (3.5-5.1); Total Bilirubin 0.5 mg/dL (0.2-1.3); Total Protein 7.5 g/dL (6.3-8.2)
--- NOTE | 2018-10-18 19:14 | XR ---
EXAMINATION TYPE: XR chest 2V DATE OF EXAM: 10/18/2018 COMPARISON: 04/28/2018 HISTORY: Chest pain TECHNIQUE: Frontal and lateral views of the chest are obtained. FINDINGS: There is no heart failure nor confluent pneumonic infiltrate. Costophrenic angles are miya r. There are chest leads. There is minor spurring in the thoracic spine. IMPRESSION: No active cardiopulmonary disease. No adverse change compared to old exam. Normal heart.
[2018-10-18 19:27] LABS: D-Dimer 0.28 mg/L FEU (<0.60); INR 0.9 (<1.2); Partial Thromboplastin Time 27.5 sec (22.0-30.0); Prothrombin Time 9.5 sec (9.0-12.0)
[2018-10-18] MEDS ORDERED: SODIUM CHLORIDE 0.9% 1,000 ML IV STA (19:59)
[2018-10-18] MEDS ORDERED: MORPHINE SULFATE 2 MG/ML SYRINGE IVP PRN ×2 (20:20→22:25)
[2018-10-18] MEDS ORDERED: HEPARIN SODIUM,PORCINE 5,000 UNIT/ML 1 ML VIAL IV ONE (20:21)
[2018-10-18] MEDS ORDERED: HEPARIN SODIUM,PORCINE 5,000 UNIT/ML 1 ML VIAL IV PRN (20:21)
[2018-10-18] MEDS ORDERED: HEPARIN SOD,PORK IN 0.45% NACL 25,000 UNIT in 0.45% NACL 1 250ML.BAG IV SCH (20:30)
--- NOTE | 2018-10-18 21:51 | CT ---
EXAMINATION TYPE: CT angio chest DATE OF EXAM: 10/18/2018 9:24 PM COMPARISON: None HISTORY: Chest pain. Hx TIA, CAD, CVA, UT CT DLP: 270.7 mGycm Automated exposure control for dose reduction was used. CONTRAST: CTA scan of the thorax is performed with IV Contrast, patient injected with 100 mL of Isovue 370, pul monary embolism protocol. There are 3-D post processed images.. FINDINGS: There is some coarsening of pulmonary interstitial markings. There is some coalescent linear density in the right lower lobe. There is no pleural effusion. Heart size is fairly normal. There is no peric ardial effusion. Thoracic aorta shows no evidence of aneurysm or dissection. There is normal contrast opacification of the pulmonary arteries. There are no filling defects. Bony thorax is intact. There is some spurring in the thoracic spine. IMPRESSION: NO EVIDENCE OF PULMONARY EMBOLISM. PATCHY INFILTRATE AND ATELECTASIS AT THE LUNG BASES MAINLY ON THE RIGHT SIDE.
[2018-10-18] MEDS ORDERED: NITROGLYCERIN SL TABS 0.4 MG TAB SUBLINGUAL PRN (21:57)
[2018-10-18] MEDS ORDERED: ASPIRIN 81 MG PO STA (21:57)
[2018-10-18] MEDS: SODIUM CHLORIDE 0.9% 1,000 ML IV SCH (22:04)
[2018-10-18 22:51] LABS: Glucose,Whole Blood 233 mg/dL (75-99)
[2018-10-18 22:59] VITALS: BMI 32.3
[2018-10-19] MEDS: INSULIN ASPART (NovoLOG) 100 UNIT/ML VIAL SQ SCH ×4 (07:00→22:18)
[2018-10-19 08:27] LABS: Cholesterol 172 mg/dL (<200); HDL Cholesterol 89 mg/dL (40-60); LDL Cholesterol,Calculated 72 mg/dL (0-99); Triglycerides 53 mg/dL (<150)
--- NOTE | 2018-10-19 08:27 | P.CRDCN ---
History of Present Illness Consult date: 10/19/18 Requesting physician: Andre Mathews Consult reason: chest pain Chief complaint: Chest pain History of present illness: This is a pleasant 83-year-old female who follows regularly with Dr. Khoa Silva in the office. She has known history of coronary artery disease with prior myocardial infarctions and multiple stent placements, most recently in April 2018 patient underwent successful stenting of the mid LAD and successful stenting of the proximal circumflex. She also has a history of hypertension, prior CVA, hyperlipidemia, diabetes, hypothyroidis, chronic back pain, patient had come into the clinic for a back injection for pain, overall she stated that was uneventful. She went home and developed a midsternal chest pressure and heaviness. Initially she felt as though it may be heartburn, the symptoms progressively worsened, therefore she called her son and came to the emergency room for further evaluation. She does state that the symptoms were quite severe. Chest x-ray on arrival here did not reveal any active cardiopulmonary disease. CTA of the chest did not reveal any evidence of pulmonary embolism. EKG showed a normal sinus rhythm with a right bundle branch block pattern, anterior lateral ST depression and T wave inversion, with inferior ST changes noted. Potassium 4.9, hemoglobin 13.5, platelet count 281. D-dimer 0.28, sodium 126, potassium 4.9, BUN 21 and creatinine 0.8. Glucose 439 on arrival. Troponin 0.012, second troponin 0.662. BNP 227. At the time of my examination this morning, patient still complaining of some midsternal chest pressure and heaviness which she is rating at about a 6. 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 Last Myocardial Infarction Date:: 04/2018 History of Any Multi-Drug Resistant Organisms: None Reported Past Surgical History: Back Surgery, Breast Surgery, Heart Catheterization With Stent, Hysterectomy, Orthopedic Surgery, Tubal Ligation Additional Past Surgical History / Comment(s): RIGHT EYE CATARACT REMOVAL, LASER EYE SURGERY BILATERALLY, "TUBES IN EYES NOW OUT", THYROIDECTOMY D/T NODULES, TEMPORAL ARTERY BX, L BREAST BENIGN BX, LOW BACK SURGERY, R SHOULDER ROTATOR CUFF REPAIR, CERVICAL PAIN INJECTIONS. Past Anesthesia/Blood Transfusion Reactions: Previous Problems w/ Anesthesia Additional Past Anesthesia/Blood Transfusion Reaction / Comment(s): hard to wake up Date of Last Stent Placement:: 12/22/2011 Past Psychological History: Anxiety Additional Psychological History / Comment(s): pts spouse in october. her oldest son lives with her currently. She is unable to take her own blood sugars due to vision. SHE IS BLIND IN THE L EYE AND SEES MINIMALLY WITH HER RIGHT EYE. SHE HAS A LIGHTED MAGNIFIER WHICH SHE USES TO MANAGE HER MEDICATIONS. NO OUTSIDE SERVICES AT THIS TIME. Smoking Status: Never smoker Past Alcohol Use History: None Reported Past Drug Use History: None Reported - Past Family History Mother Family Medical History: Myocardial Infarction ([place]) Additional Family Medical History / Comment(s): MOTHER OF A [place] AT THE AGE OF 57YRS. Brother(s) Family Medical History: Myocardial Infarction ([place]) Additional Family Medical History / Comment(s): BROTHER OF A [place] AT THE AGE OF 60YRS. Father Family Medical History: No Reported History Additional Family Medical History / Comment(s): FATHER LIVED TO BE 90YRS OLD. Medications and Allergies Home Medications Medication Instructions Recorded Confirmed Type Aspirin 81 mg PO HS 01/21/14 10/18/18 History Clopidogrel [Plavix] 75 mg PO DAILY 01/21/14 10/18/18 History Metoprolol Tartrate [Lopressor] 50 mg PO BID 01/21/14 10/18/18 History Cholecalciferol [Vitamin D3] 1,000 unit PO DAILY 05/03/16 10/18/18 History Vits A,C,E/Lutein/Minerals 2 tab PO DAILY 05/03/16 10/18/18 History [Ocuvite with Lutein Tablet] Levothyroxine Sodium [Synthroid] 88 mcg PO DAILY 05/31/17 10/18/18 History ALPRAZolam [Xanax] 0.25 mg PO DAILY PRN #30 06/05/17 10/18/18 Rx Glimepiride [Amaryl] 1 mg PO AC-BRKFST 04/28/18 10/18/18 History metFORMIN HCL [Glucophage] 500 mg PO BID 04/28/18 10/18/18 History Acetaminophen Tab [Tylenol] 500 mg PO Q6HR PRN tab 05/01/18 10/18/18 Rx Losartan Potassium [Cozaar] 50 mg PO BID #60 tablet 05/01/18 10/18/18 Rx Nitroglycerin Sl Tabs [Nitrostat] 0.4 mg SUBLINGUAL Q5M PRN #25 tab 05/01/18 Rx Acetaminophen with Codeine 1 tab PO Q6H PRN 09/25/18 10/18/18 History [Tylenol w/codeine #3] Furosemide [Lasix] 20 mg PO DAILY 09/25/18 10/18/18 History Hydrochlorothiazide 12.5 mg PO DAILY 09/25/18 10/18/18 History Atorvastatin [Lipitor] 80 mg PO HS 10/18/18 10/18/18 History Allergies Allergy/AdvReac Type Severity Reaction Status Date / Time PAPER TAPE Allergy Rash/Hives Uncoded 10/18/18 08:39 Physical Exam Vitals: Vital Signs Temp Pulse Pulse Resp BP BP Pulse Ox 10/19/18 04:00 98.3 F 70 18 153/69 96 10/19/18 00:00 97.4 F L 85 20 152/66 99 10/18/18 22:48 97.5 F L 91 20 150/68 99 10/18/18 21:34 90 20 171/72 99 10/18/18 20:52 94 18 184/80 99 10/18/18 20:00 100 22 190/76 99 10/18/18 19:24 101 H 20 197/77 98 10/18/18 19:00 97 18 205/84 96 10/18/18 18:00 101 H 16 178/70 98 10/18/18 17:29 97.9 F 99 18 200/75 100 Intake and Output 10/18/18 10/19/18 10/19/18 22:59 06:59 14:59 Intake Total 800 Balance 800 Intake: Intake, IV Titration 800 Amount Sodium Chloride 0.9% 1, 800 000 ml @ 100 mls/hr IV . Q10H [facility] Rx#:[id number] Other: Voiding Method Toilet # Voids 1 Weight 70.76 kg 72.8 kg PHYSICAL EXAMINATION: HEENT: Head is atraumatic, normocephalic. Pupils equal, round. Neck is supple. There is no elevated jugular venous pressure. HEART EXAMINATION: Heart sounds regular, S1 and S2 with a systolic murmur. CHEST EXAMINATION: Lungs are clear to auscultation and precussion. No chest wall tenderness is noted on palpation or with deep breathing. ABDOMEN: Soft, nontender. Bowel sounds are heard. No organomegaly noted. EXTREMITIES: 2+ peripheral pulses with no evidence of peripheral edema and no calf tenderness noted. NEUROLOGIC patient is awake, alert and oriented x3. Results 10/18/18 18:03 10/18/18 18:03 Cardiac Enzymes 10/18/18 10/18/18 10/19/18 Range/Units 18:03 18:03 00:39 AST 23 (14-36) U/L Troponin I <0.012 0.662 H* (0.000-0.034) ng/mL Coagulation 10/18/18 Range/Units 18:03 PT 9.5 (9.0-12.0) sec APTT 27.5 (22.0-30.0) sec CBC 10/18/18 Range/Units 18:03 WBC 4.9 (3.8-10.6) k/uL RBC 4.51 (3.80-5.40) m/uL Hgb 13.5 (11.4-16.0) gm/dL Hct 41.1 (34.0-46.0) % Plt Count 281 (150-450) k/uL Comprehensive Metabolic Panel 10/18/18 Range/Units 18:03 Sodium 126 L (137-145) mmol/L Potassium 4.9 (3.5-5.1) mmol/L Chloride 85 L (98-107) mmol/L Carbon Dioxide 26 (22-30) mmol/L BUN 21 H (7-17) mg/dL Creatinine 0.81 (0.52-1.04) mg/dL Glucose 439 H (74-99) mg/dL Calcium 8.9 (8.4-10.2) mg/dL AST 23 (14-36) U/L ALT 27 (9-52) U/L Alkaline Phosphatase 142 H (38-126) U/L Total Protein 7.5 (6.3-8.2) g/dL Albumin 4.7 (3.5-5.0) g/dL Current Medications Generic Name Dose Route Start Last Admin Trade Name Ellen PRN Reason Stop Dose Admin Aspirin 325 mg 10/19/18 09:00 Aspirin PO DAILY [facility] Glimepiride 1 mg 10/19/18 07:30 Amaryl PO AC-BRKFST [facility] Heparin Sodium (Porcine) 0 unit 10/18/18 20:21 Heparin IV PER PROTOCOL PRN Low PTT Protocol Heparin Sodium/Sodium Chloride 250 mls @ 8.49 mls/hr 10/18/18 20:30 10/18/18 22:11 25,000 unit/ Sodium Chloride IV 12 units/kg/hr .Q24H ANDREW 8.49 mls/hr Administration Protocol 12 UNITS/KG/HR Sodium Chloride 1,000 mls @ 100 mls/hr 10/18/18 22:00 10/18/18 22:04 Saline 0.9% IV 100 mls/hr .Q10H ANDREW Administration Insulin Aspart 0 unit 10/19/18 07:30 10/19/18 07:00 Novolog SQ 2 unit ACHS ANDREW Administration Protocol Metformin HCl 500 mg 10/19/18 09:00 Glucophage PO BID ANDREW Morphine Sulfate 2 mg 10/18/18 20:20 10/18/18 20:26 Morphine Sulfate (Inj) IVP 2 mg ONCE PRN Administration Pain Morphine Sulfate 2 mg 10/18/18 22:25 Morphine Sulfate (Inj) IVP Q4H PRN Pain/Discomfort Nitroglycerin 0.4 mg 10/18/18 21:57 Nitrostat SUBLINGUAL Q5M PRN Chest Pain Intake and Output 10/18/18 10/19/18 10/19/18 22:59 06:59 14:59 Intake Total 800 Balance 800 Intake: Intake, IV Titration 800 Amount Sodium Chloride 0.9% 1, 800 000 ml @ 100 mls/hr IV . Q10H [facility] Rx#:[id number] Other: Voiding Method Toilet # Voids 1 Weight 70.76 kg 72.8 kg 10/18/18 18:03 10/18/18 18:03 EKG Interpretations (text) EKG shows normal sinus rhythm with right bundle branch block pattern, anterior lateral T-wave changes with inferior ST-T wave changes. Assessment and Plan Plan: Assessment and plan #1 symptoms of chest pressure and heaviness suggestive of acute coronary syndrome. Initial troponin 0.012, subsequent troponin 0.66. EKG shows normal sinus rhythm with right bundle branch block pattern, anterior lateral T-wave changes with inferior ST-T wave changes. #2 known history of coronary artery disease with multiple stent placements in the past. Most recently in April 2018 patient underwent successful stenting of the mid LAD and successful stenting of the proximal circumflex. #3 hypertension #4 hyperlipidemia #5 diabetes #6 chronic back pain for which the patient underwent a pain injection yesterday. #7 hyponatremia, sodium 126 Plan We will obtain a stat echocardiogram with Doppler study. We will also resume the patient's Plavix, beta gennaro, statin, Cozaar. Patient has been advised that she may need to undergo repeat cardiac catheterization, the risks and benefits were explained to the patient and she is willing to proceed. Her son is present at bedside. Further recommendations will be based on these findings and patient's clinical course. DNP note has been reviewed, I agree with a documented findings and plan of care. Patient was seen and examined.
[2018-10-19] MEDS: CLOPIDOGREL 75 MG TAB PO SCH (08:41)
[2018-10-19] MEDS: METOPROLOL TARTRATE 50 MG TAB PO SCH ×2 (08:41→21:06)
[2018-10-19] MEDS ORDERED: LOSARTAN 50 MG TAB PO SCH (09:00)
[2018-10-19] MEDS ORDERED: metFORMIN 500 MG TAB PO SCH (09:00)
[2018-10-19] MEDS ORDERED: ASPIRIN 325 MG TAB PO SCH (09:00)
[2018-10-19] MEDS ORDERED: ALPRAZolam 0.25 MG TAB PO PRN (09:20)
[2018-10-19] MEDS ORDERED: ATORVASTATIN 80 MG TAB PO STA (09:20)
[2018-10-19] MEDS ORDERED: SODIUM CHLORIDE 0.9% 1,000 ML in EMPTY BAG 1 BAG IV ONE (09:20)
[2018-10-19] MEDS ORDERED: NITROGLYCERIN SL TABS 0.4 MG TAB SUBLINGUAL PRN (09:20)
[2018-10-19] MEDS ORDERED: ASPIRIN 325 MG TAB PO STA (09:20)
[2018-10-19] MEDS: SODIUM CHLORIDE 0.9% 1,000 ML IV SCH ×2 (09:27→14:01)
[2018-10-19 12:02] LABS: Glucose,Whole Blood 162 mg/dL (75-99)
[2018-10-19 12:03] LABS: Glucose,Whole Blood 111 mg/dL (75-99)
[2018-10-19] MEDS ORDERED: IV FLUID CONTINUATION 950 ML IV ONE (12:07)
[2018-10-19] MEDS ORDERED: MIDAZOLAM 2 MG/2 ML VIAL IVP ONE (12:07)
[2018-10-19] MEDS ORDERED: LIDOCAINE 1% (PF) 10 MG/ML (30 ML SDV) SQ ONE (12:11)
[2018-10-19] MEDS ORDERED: BIVALIRUDIN BOLUS 250 MG/50 ML IV ONE (12:34)
[2018-10-19] MEDS ORDERED: BIVALIRUDIN 250 MG in SODIUM CHLORIDE 0.9% 39 ML IV ONE (12:35)
[2018-10-19] MEDS ORDERED: IOPAMIDOL-370 100ML BTL INJ ONE ×2 (12:45→12:52)
[2018-10-19] MEDS ORDERED: NITROGLYCERIN 1000MCG/10ML SYRINGE INTRACORON ONE (12:48)
[2018-10-19] MEDS ORDERED: CLOPIDOGREL 75 MG TAB PO ONE (12:51)
--- NOTE | 2018-10-19 13:31 | CC ---
CARDIAC CATHETERIZATION REPORT DATE OF SERVICE: 10/19/2017. PROCEDURE: 1. Left heart catheterization and coronary angiography. 2. PTCA and stenting of the ostium of the circumflex coronary artery with a drug- eluting stent, a restenotic lesion. PERFORMED BY: Dr. Isaiah Silva. Moderate conscious sedation time was 44 minutes. Patient was administered Versed and Benadryl. Hemodynamics, oxygen saturation were monitored closely. CLINICAL INFORMATION: Mrs. Praveena Brewster is an 83-year-old lady with history of type 2 diabetes, hypertension, and hyperlipidemia. She also has multivessel CAD. She has a small nondominant RCA with diffuse disease and she underwent stenting of mid circumflex and mid LAD performed in 2011 in the setting of a non-ST elevation OK. However, in April of 2018, she came in with unstable angina and troponin rise was noted and at that time she had a restenotic lesion in the LAD stent that was dilated by Dr. Short with a good result. At that time, she had ostial circumflex lesion, which was addressed with a 2.5 caliber 12 mm Xience stent. She comes in again with symptoms strongly suggestive of angina with inferior wall ischemic changes and troponin elevation with a non-ST elevation OK. LV function was fairly decent. She was advised coronary angiography. PROCEDURE NOTE: Under local anesthesia and strict aseptic precautions, a 6-Monegasque introducer was placed in the right femoral artery. Using standard Chiquita catheters, I performed coronary angiography and the same right catheter was used to check LV pressures. LV gram was not performed. I noted that there was a significant lesion in the circumflex ostium just at the proximal end of the previously placed stent and therefore I recommend intervention that was performed expeditiously. CARDIAC CATHETERIZATION FINDINGS: The left ventricular end-diastolic pressure was 22 mmHg without gradient across the aortic valve. RIGHT CORONARY ARTERY: A small nondominant vessel with diffuse disease limited antegrade flow. LEFT MAIN CORONARY ARTERY: A short vessel free of significant disease. Mild calcification. Bifurcates into LAD and circumflex. LEFT ANTERIOR DESCENDING CORONARY ARTERY: Good caliber vessel extends along the anterior wall, has multiple diffuse areas of narrowing. The stented segment in mid LAD is patent. The diagonal branch which was jailed is also patent with the ostial lesion that is unchanged. Flow is brisk. Distal LAD that was dilated is also patent with minor irregularities. The are lesions of anywhere from 30% to 45% throughout the LAD, but the stented segment is widely patent. LEFT POSTERIOR CIRCUMFLEX CORONARY ARTERY: Technically dominant vessel gives off a high first obtuse marginal, which has about ostial lesion of about 50% to 55%. Small caliber, small distribution vessel. Mid circumflex stent is patent. At the ostium of the circumflex at the site of the previously placed stent in April at the proximal end of the stent, there is a focal 95% stenosis best seen in the PRITCHETT caudal projection on frame #29 and image #4. The distal circumflex and its branches have minor diffuse irregularities. LEFT VENTRICULOGRAM: Left ventriculogram was not performed. This patient has a ostial circumflex lesion at the site of previous stent immediately proximal to the stent of 95%. LAD stent is widely patent with diffuse irregularities. RCA is nondominant, has has a diffuse disease. LV pressures are elevated, but LV gram was not performed. PCI PROCEDURE DETAILS: The standard left Chiquita guide catheter was used to cannulate the left coronary artery. A run-through wire was used to cross the lesion. Predilatation was performed with a 2.5 caliber 8 mm Trek balloon. I then deployed a 2.75 caliber 8 mm long Xience stent and the proximal end of the stent was actually in the distal left main and the 95% lesion in the ostium of circumflex was very well covered. I also jailed the first obtuse marginal. Excellent angiographic result was achieved. This stent was deployed at 13 atmospheres. Excellent angiographic result was achieved. Patient had intense chest discomfort and inferior ST elevation. At the time of the inflation, the blood flow was patent in the LAD as evidenced by an angiogram. Excellent angiographic result without complication was achieved. The sheath was sutured. Results were discussed with the patient and her sons. Patient was asymptomatic, chest pain free with an EKG that was baseline without any issues. The angiographic appearance and flow was excellent. Excellent angiographic result without complication was achieved. Patient received additional 150 mg of Plavix. She was already on aspirin and Plavix. She will be discharged hopefully in the next 24 to 48 hours. MMODL / IJN: [id number] /
[2018-10-19] MEDS: GLIMEPIRIDE 1 MG TAB PO SCH (14:01)
--- NOTE | 2018-10-19 14:29 | ECHOF ---
Referral Reason:assess lvf MEASUREMENTS -------- HEIGHT: 149.9 cm WEIGHT: 72.6 kg BP: 184/65 RVIDd: 2.5 cm (< 3.3) IVSd: 1.3 cm (0.6 - 1.1) LVIDd: 4.7 cm (3.9 - 5.3) LVPWd: 1.3 cm (0.6 - 1.1) IVSs: 1.5 cm LVIDs: 2.8 cm LVPWs: 1.5 cm LAESV Index (A-L): 22.69 ml/m Ao Diam: 2.7 cm (2.0 - 3.7) AV Cusp: 1.7 cm (1.5 - 2.6) LA Diam: 3.1 cm (2.7 - 3.8) MV E Adrian: 0.89 m/s MV DecT: 252 ms MV A Adrian: 1.11 m/s MV E/A Ratio: 0.80 RAP: 5.00 mmHg RVSP: 32.05 mmHg FINDINGS -------- Sinus rhythm. This was a technically adequate study. The left ventricular size is normal. There is mild concentric left ventricular hypertrophy. Overa ll left ventricular systolic function is normal with, an EF between 55 - 60 %. The right ventricle is normal in size and function. Normal LA size by volume 22+/-6 ml/m2. The right atrium is normal in size. Aortic valve is trileaflet and is mildly thickened. There is no evidence of aortic regurgitation. There is no evidence of aortic stenosis. Mild mitral annular calcification present. [id number]-wk-[id number] mitral regurgitation is present. Trace tricuspid regurgitation present. Right ventricular systolic pressure is normal at < 35 mmHg. There is no evidence of pulmonary hypertension. Trace/mild (physiologic) pulmonic regurgitation. The aortic root size is normal. Normal inferior vena cava with normal inspiratory collapse consistent with estimated right atrial pre ssure of 5 mmHg. There is no pericardial effusion. CONCLUSIONS -------- 1. Sinus rhythm. 2. This was a technically adequate study. 3. The left ventricular size is normal. 4. There is mild concentric left ventricular hypertrophy. 5. Overall left ventricular systolic function is normal with, an EF between 55 - 60 %. 6. Normal LA size by volume 22+/-6 ml/m2. 7. Aortic valve is trileaflet and is mildly thickened. 8. Mild mitral annular calcification present. 9. Rtoo-tq-rrttssbq mitral regurgitation is present. 10. Trace tricuspid regurgitation present. 11. Right ventricular systolic pressure is normal at < 35 mmHg. 12. There is no evidence of pulmonary hypertension. 13. Trace/mild (physiologic) pulmonic regurgitation. 14. The aortic root size is normal. 15. There is no pericardial effusion. [employer]NCIL DIRECTOR: Julian Griffin RDCS
[2018-10-19 16:39] LABS: Glucose,Whole Blood 169 mg/dL (75-99)
[2018-10-19] MEDS: ATORVASTATIN 80 MG TAB PO SCH (21:07)
[2018-10-19 21:44] LABS: Glucose,Whole Blood 131 mg/dL (75-99)
[2018-10-19] MEDS: ACETAMINOPHEN TAB 500 MG TAB PO PRN (23:44)
--- NOTE | 2018-10-20 00:15 | P.HPIM ---
History of Present Illness H&P Date: 10/19/18 Chief Complaint: Chest pain Patient is a 83-year-old female with a known history of coronary artery disease and stent placement 6, history of MT, most recent cardiac catheterization with unsuccessful stenting in April 2018, diabetes type 2, hypothyroidism, hypertension, hyperlipidemia and other multiple medical problems including chronic back pain came to the hospital with complaints of mid retrosternal chest pain/pressure and heavy feeling. 8/ 10 in severity on admission Patient came to the hospital with worsening symptoms. Associated with short of breath.. Patient does have nausea. No ulcers or vomiting. No headache or dizziness or lightheadedness. Chest x-ray showed no acute cardio pulmonary process CT angiogram showed no evidence of pulmonary embolism EKG showed sinus rhythm with right bundle branch block pattern. Sodium 126. Troponin 0.012 and .662. And, BNP 227 Blood sugar is elevated admission greater than 400 Sodium 126, BUN 21 and creatinine 0.8 Review of Systems Constitutional: Patient denies any fever or chills . No generalized weakness or weight loss. Abdomen: Patient denied nausea vomiting and diarrhea and abdominal pain. Cardiovascular: Chest pressure with shortness of breath. No leg swelling. no palpitations. Respiratory: patient denied any cough is from production. No shortness of breath Neurologic: Patient denied any numbness or tingling headache. Musculoskeletal: Patient denies any complaints of joint swelling or deformity. Skin: Negative Psychiatric: Negative Endocrine: No heat or cold intolerance. No recent weight gain. Genitourinary: No dysuria or hematuria. 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 Last Myocardial Infarction Date:: 04/2018 History of Any Multi-Drug Resistant Organisms: None Reported Past Surgical History: Back Surgery, Breast Surgery, Heart Catheterization With Stent, Hysterectomy, Orthopedic Surgery, Tubal Ligation Additional Past Surgical History / Comment(s): RIGHT EYE CATARACT REMOVAL, LASER EYE SURGERY BILATERALLY, "TUBES IN EYES NOW OUT", THYROIDECTOMY D/T NODULES, TEMPORAL ARTERY BX, L BREAST BENIGN BX, LOW BACK SURGERY, R SHOULDER ROTATOR CUFF REPAIR, CERVICAL PAIN INJECTIONS. Past Anesthesia/Blood Transfusion Reactions: Previous Problems w/ Anesthesia Additional Past Anesthesia/Blood Transfusion Reaction / Comment(s): hard to wake up Date of Last Stent Placement:: 12/22/2011 Past Psychological History: Anxiety Additional Psychological History / Comment(s): pts spouse in october. her oldest son lives with her currently. She is unable to take her own blood sugars due to vision. SHE IS BLIND IN THE L EYE AND SEES MINIMALLY WITH HER RIGHT EYE. SHE HAS A LIGHTED MAGNIFIER WHICH SHE USES TO MANAGE HER MEDICATIONS. NO OUTSIDE SERVICES AT THIS TIME. Smoking Status: Never smoker Past Alcohol Use History: None Reported Past Drug Use History: None Reported - Past Family History Mother Family Medical History: Myocardial Infarction (MT) Additional Family Medical History / Comment(s): MOTHER OF A MT AT THE AGE OF 57YRS. Brother(s) Family Medical History: Myocardial Infarction (MT) Additional Family Medical History / Comment(s): BROTHER OF A MT AT THE AGE OF 60YRS. Father Family Medical History: No Reported History Additional Family Medical History / Comment(s): FATHER LIVED TO BE 90YRS OLD. Medications and Allergies Home Medications Medication Instructions Recorded Confirmed Type Aspirin 81 mg PO HS 01/21/14 10/18/18 History Clopidogrel [Plavix] 75 mg PO DAILY 01/21/14 10/18/18 History Metoprolol Tartrate [Lopressor] 50 mg PO BID 01/21/14 10/18/18 History Cholecalciferol [Vitamin D3] 1,000 unit PO DAILY 05/03/16 10/18/18 History Vits A,C,E/Lutein/Minerals 2 tab PO DAILY 05/03/16 10/18/18 History [Ocuvite with Lutein Tablet] Levothyroxine Sodium [Synthroid] 88 mcg PO DAILY 05/31/17 10/18/18 History ALPRAZolam [Xanax] 0.25 mg PO DAILY PRN #30 06/05/17 10/18/18 Rx Glimepiride [Amaryl] 1 mg PO [id number] 04/28/18 10/18/18 History metFORMIN HCL [Glucophage] 500 mg PO BID 04/28/18 10/18/18 History Acetaminophen Tab [Tylenol] 500 mg PO Q6HR PRN tab 05/01/18 10/18/18 Rx Losartan Potassium [Cozaar] 50 mg PO BID #60 tablet 05/01/18 10/18/18 Rx Nitroglycerin Sl Tabs [Nitrostat] 0.4 mg SUBLINGUAL Q5M PRN #25 tab 05/01/18 Rx Acetaminophen with Codeine 1 tab PO Q6H PRN 09/25/18 10/18/18 History [Tylenol w/codeine #3] Furosemide [Lasix] 20 mg PO DAILY 09/25/18 10/18/18 History Hydrochlorothiazide 12.5 mg PO DAILY 09/25/18 10/18/18 History Atorvastatin [Lipitor] 80 mg PO HS 10/18/18 10/18/18 History Allergies Allergy/AdvReac Type Severity Reaction Status Date / Time PAPER TAPE Allergy Rash/Hives Uncoded 10/18/18 08:39 Physical Exam Vitals: Vital Signs Temp Pulse Pulse Resp BP BP Pulse Ox 10/19/18 08:39 79 130/55 10/19/18 08:00 97.8 F 79 16 184/65 97 10/19/18 04:00 98.3 F 70 18 153/69 96 10/19/18 00:00 97.4 F L 85 20 152/66 99 10/18/18 22:48 97.5 F L 91 20 150/68 99 10/18/18 21:34 90 20 171/72 99 10/18/18 20:52 94 18 184/80 99 10/18/18 20:00 100 22 190/76 99 10/18/18 19:24 101 H 20 197/77 98 10/18/18 19:00 97 18 205/84 96 10/18/18 18:00 101 H 16 178/70 98 10/18/18 17:29 97.9 F 99 18 200/75 100 Intake and Output 10/18/18 10/19/18 10/19/18 22:59 06:59 14:59 Intake Total 800 111 Balance 800 111 Intake: IV 111 Intake, IV Titration 800 Amount Sodium Chloride 0.9% 1, 800 000 ml @ 100 mls/hr IV . Q10H [facility] Rx#:[id number] Oral 0 Other: Voiding Method Toilet # Voids 1 Weight 70.76 kg 72.8 kg PHYSICAL EXAMINATION: Patient is lying in the bed comfortably, no acute distress, awake alert and oriented.. HEENT: Normocephalic. Neck is supple. Pupils reactive. Nostrils clear. Oral cavity is moist. Ears reveal no drainage. Neck reveals no JVD, carotid bruits, or thyromegaly. CHEST EXAMINATION: Trachea is central. Symmetrical expansion. Lung tsai clear to auscultation and percussion. CARDIAC: Normal S1, S2 with no gallops. No murmurs ABDOMEN: Soft. Bowel sounds normal. No organomegaly. No abdominal bruits. Extremities: reveal no edema. No clubbing or cyanosis Neurologically awake, alert, oriented x3 with well-coordinated movements. No focal deficits noted Skin: No rash or skin lesions. Psychiatric: Coperative. Nonsuicidal Musculoskeletal: No joint swelling or deformity. Normal range of motion. Results CBC & Chem 7: 10/18/18 18:03 10/18/18 18:03 Labs: Abnormal Lab Results - Last 24 Hours (Table) 10/18/18 10/18/18 10/18/18 Range/Units 18:03 18:03 22:46 Lymphocytes # 0.4 L (1.0-4.8) k/uL APTT (22.0-30.0) sec Sodium 126 L (137-145) mmol/L Chloride 85 L (98-107) mmol/L BUN 21 H (7-17) mg/dL Glucose 439 H (74-99) mg/dL POC Glucose (mg/dL) 233 H (75-99) mg/dL Alkaline Phosphatase 142 H (38-126) U/L Troponin I (0.000-0.034) ng/mL HDL Cholesterol (40-60) mg/dL 10/19/18 10/19/18 10/19/18 Range/Units 00:39 05:49 07:52 Lymphocytes # (1.0-4.8) k/uL APTT (22.0-30.0) sec Sodium (137-145) mmol/L Chloride (98-107) mmol/L BUN (7-17) mg/dL Glucose (74-99) mg/dL POC Glucose (mg/dL) 162 H (75-99) mg/dL Alkaline Phosphatase (38-126) U/L Troponin I 0.662 H* 1.910 H* (0.000-0.034) ng/mL HDL Cholesterol (40-60) mg/dL 10/19/18 10/19/18 10/19/18 Range/Units 07:52 07:52 11:25 Lymphocytes # (1.0-4.8) k/uL APTT 60.3 H (22.0-30.0) sec Sodium (137-145) mmol/L Chloride (98-107) mmol/L BUN (7-17) mg/dL Glucose (74-99) mg/dL POC Glucose (mg/dL) 111 H (75-99) mg/dL Alkaline Phosphatase (38-126) U/L Troponin I (0.000-0.034) ng/mL HDL Cholesterol 89 H (40-60) mg/dL Thrombosis Risk Factor Assmnt - DVT/VTE Prophylaxis DVT/VTE Prophylaxis: Pharmacologic Prophylaxis ordered - Choose All That Apply Any of the Below Risk Factors Present?: Yes Each Factor Represents 1 point: Acute MT, Obesity (BMI >25), Swollen legs ( current) Other Risk Factors: Yes Each Risk Factor Represents 3 Points: Age 75 years or older Other congenital or acquired thrombophilia - If yes, enter type in comment: No Thrombosis Risk Factor Assessment Total Risk Factor Score: 6 Thrombosis Risk Factor Assessment Level: High Risk Assessment and Plan Assessment: Chest pain possible unstable angina History of coronary artery disease with multiple stent placement Diabetes type 2. Ijd-rchhbyo-ehxlwvlsl. uncontrolled with hyperglycemia on admission Hyponatremia 126 possible pseudohyponatremia Hypertension Hyperlipidemia GERD Chronic back pain Hypothyroidism Osteoarthritis History of CVA with left eye blindness. Legally blind due to macular degeneration. DVT prophylaxis Anxiety Plan: Patient will be continued on aspirin Plavix statins and beta blockers. 2-D echocardiogram was ordered. Patient was seen by cardiology and was taken for repeat cardiac catheterization. Continue the pain management and further recommendations based on the clinical course. Patient was discharged back on home hypoglycemic medications and insulin sliding scale. Continue with other home medications. Prognosis is guarded with multiple medical problems and comorbid conditions. Time with Patient: Greater than 30
[2018-10-20] MEDS: ALPRAZolam 0.5 MG TAB PO PRN ×2 (05:08→21:41)
[2018-10-20] MEDS: ACETAMINOPHEN TAB 500 MG TAB PO PRN (05:08)
[2018-10-20] MEDS: INSULIN ASPART (NovoLOG) 100 UNIT/ML VIAL SQ SCH ×3 (06:52→17:57)
[2018-10-20] MEDS: GLIMEPIRIDE 1 MG TAB PO SCH (06:54)
[2018-10-20] MEDS: LEVOTHYROXINE 88 MCG TAB PO SCH (06:54)
[2018-10-20] MEDS: SODIUM CHLORIDE 0.9% 1,000 ML IV SCH ×2 (06:55→16:08)
[2018-10-20 06:59] LABS: Glucose,Whole Blood 128 mg/dL (75-99)
[2018-10-20 07:05] LABS: Basophils % (A) 0 %; Eosinophils # (A) 0.1 k/uL (0-0.7); Eosinophils % (A) 1 %; HCT 31.7 % (34.0-46.0); Lymphocytes % (A) 19 %; MCH 30.5 pg (25.0-35.0); MCV 92.3 fL (80.0-100.0); Mean Platelet Volume 7.4; Monocytes # (A) 0.6 k/uL (0-1.0); Monocytes % (A) 6 %; Neutrophils # (A) 7.5 k/uL (1.3-7.7); Neutrophils % (A) 73 %; Platelet Count 243 k/uL (150-450); RBC 3.44 m/uL (3.80-5.40); RDW 13.4 % (11.5-15.5); WBC 10.4 k/uL (3.8-10.6)
[2018-10-20 07:11] LABS: HGB 10.5 gm/dL (11.4-16.0)
[2018-10-20 07:27] LABS: Anion Gap 9 mmol/L; Blood Urea Nitrogen 17 mg/dL (7-17); Calcium 7.9 mg/dL (8.4-10.2); Carbon Dioxide 24 mmol/L (22-30); Chloride 100 mmol/L (98-107); Glucose 128 mg/dL (74-99); Sodium 133 mmol/L (137-145)
[2018-10-20] MEDS: METOPROLOL TARTRATE 50 MG TAB PO SCH ×2 (09:32→21:41)
[2018-10-20] MEDS: ASPIRIN 81 MG PO SCH (09:32)
[2018-10-20] MEDS: LOSARTAN 50 MG TAB PO SCH (09:33)
[2018-10-20] MEDS: CLOPIDOGREL 75 MG TAB PO SCH (09:33)
[2018-10-20] MEDS ORDERED: MAGNESIUM HYDROXIDE 2,400 MG/10 ML CUP PO PRN (11:33)
[2018-10-20 11:59] LABS: Glucose,Whole Blood 88 mg/dL (75-99)
--- NOTE | 2018-10-20 13:05 | PN ---
PROGRESS NOTE Mrs. Brewster came with a non-Q-wave myocardial infarction, underwent cardiac catheterization. Patient had a stent to the proximal circumflex coronary artery. Patient is feeling well. She is feeling exhausted. Blood pressure is 160/68 mmHg. First and second heart sounds are normal. Lungs are clinically clear to auscultation and percussion. We will continue the current medications. Patient will be ambulated. If patient is feeling well, patient can be discharged home tomorrow. MMODL / IJN: [id number] /
[2018-10-20] MEDS ORDERED: DOCUSATE 100 MG CAP PO PRN (15:57)
[2018-10-20 16:48] LABS: Glucose,Whole Blood 130 mg/dL (75-99)
[2018-10-20 21:32] LABS: Glucose,Whole Blood 157 mg/dL (75-99)
[2018-10-20] MEDS: ATORVASTATIN 80 MG TAB PO SCH (21:41)
--- NOTE | 2018-10-21 00:27 | P.PN ---
Subjective Progress Note Date: 10/20/18 Principal diagnosis: Unstable angina. Status post cardiac catheterization and stent placement Patient is a 83-year-old female with a known history of coronary artery disease and stent placement 6, history of AR, most recent cardiac catheterization with unsuccessful stenting in April 2018, diabetes type 2, hypothyroidism, hypertension, hyperlipidemia and other multiple medical problems including chronic back pain came to the hospital with complaints of mid retrosternal chest pain/pressure and heavy feeling. 8/ 10 in severity on admission Patient came to the hospital with worsening symptoms. Associated with short of breath.. Patient does have nausea. No ulcers or vomiting. No headache or dizziness or lightheadedness. Chest x-ray showed no acute cardio pulmonary process CT angiogram showed no evidence of pulmonary embolism EKG showed sinus rhythm with right bundle branch block pattern. Sodium 126. Troponin 0.012 and .662. And, BNP 227 Blood sugar is elevated admission greater than 400 Sodium 126, BUN 21 and creatinine 0.8 10/20/2017 Patient is able to sit in the chair. No complains of chest pain or shortness of breath. Patient does have constipation. No abdominal pain. No nausea vomiting. No fever no chills. No other acute overnight issues. Current medications reviewed Objective - Vital Signs Vital signs: Vital Signs Temp 97.0 F L 10/20/18 20:00 Pulse 68 10/20/18 20:00 Resp 18 10/20/18 20:00 BP 147/75 10/20/18 20:00 Pulse Ox 96 10/20/18 20:00 Intake & Output 10/20/18 10/20/18 10/21/18 06:59 18:59 06:59 Intake Total 862.5 720 Balance 862.5 720 Weight 72.5 kg Intake: Intake, IV Titration 862.5 Amount Sodium Chloride 0.9% 1, 862.5 000 ml @ 75 mls/hr IV . [id number] [facility] Rx#:[id number] Oral 720 Other: Voiding Method Toilet Toilet Toilet # Voids 2 2 - Exam PHYSICAL EXAMINATION: Patient is lying in the bed comfortably, no acute distress, awake alert and oriented.. HEENT: Normocephalic. Neck is supple. Pupils reactive. Nostrils clear. Oral cavity is moist. Ears reveal no drainage. Neck reveals no JVD, carotid bruits, or thyromegaly. CHEST EXAMINATION: Trachea is central. Symmetrical expansion. Lung tsai clear to auscultation and percussion. CARDIAC: Normal S1, S2 with no gallops. No murmurs ABDOMEN: Soft. Bowel sounds normal. No organomegaly. No abdominal bruits. Extremities: reveal no edema. No clubbing or cyanosis Neurologically awake, alert, oriented x3 with well-coordinated movements. No focal deficits noted Skin: No rash or skin lesions. Psychiatric: Coperative. Nonsuicidal Musculoskeletal: No joint swelling or deformity. Normal range of motion. - Labs CBC & Chem 7: 10/20/18 05:54 10/20/18 05:54 Labs: Abnormal Lab Results - Last 24 Hours (Table) 10/20/18 10/20/18 10/20/18 Range/Units 05:54 05:54 06:51 RBC 3.44 L (3.80-5.40) m/uL Hgb 10.5 L D (11.4-16.0) gm/dL Hct 31.7 L (34.0-46.0) % Sodium 133 L (137-145) mmol/L Glucose 128 H (74-99) mg/dL POC Glucose (mg/dL) 128 H (75-99) mg/dL Calcium 7.9 L (8.4-10.2) mg/dL 10/20/18 10/20/18 Range/Units 16:45 21:30 RBC (3.80-5.40) m/uL Hgb (11.4-16.0) gm/dL Hct (34.0-46.0) % Sodium (137-145) mmol/L Glucose (74-99) mg/dL POC Glucose (mg/dL) 130 H 157 H (75-99) mg/dL Calcium (8.4-10.2) mg/dL Assessment and Plan Assessment: Chest pain possible unstable angina. Status post cardiac catheterization and stent placement. History of coronary artery disease with multiple stent placement Diabetes type 2. Ana-pddwblw-hwtrnljnt. uncontrolled with hyperglycemia on admission Hyponatremia 126 possible pseudohyponatremia with hyperglycemia. Improved now Hypertension Hyperlipidemia GERD Chronic back pain Hypothyroidism Osteoarthritis History of CVA with left eye blindness. Legally blind due to macular degeneration. DVT prophylaxis with heparin subcu Constipation. Anxiety Plan: Patient will be continued on aspirin Plavix statins and beta blockers. 2-D echocardiogram was done showed normal ejection fraction and no evidence of pulmonary hypertension. No significant valvular abnormalities noted.. Cardiology is following.. Continue the pain management and further recommendations based on the clinical course. Patient was started back on home hypoglycemic medications and insulin sliding scale. Continue with other home medications. Prognosis is guarded with multiple medical problems and comorbid conditions. Time with Patient: Greater than 30
[2018-10-21] MEDS: INSULIN ASPART (NovoLOG) 100 UNIT/ML VIAL SQ SCH ×5 (03:41→21:43)
[2018-10-21 06:28] LABS: Glucose,Whole Blood 145 mg/dL (75-99)
[2018-10-21] MEDS: LEVOTHYROXINE 88 MCG TAB PO SCH (06:36)
[2018-10-21] MEDS: GLIMEPIRIDE 1 MG TAB PO SCH (06:36)
[2018-10-21] MEDS: CLOPIDOGREL 75 MG TAB PO SCH (09:23)
[2018-10-21] MEDS: METOPROLOL TARTRATE 50 MG TAB PO SCH ×2 (09:23→21:42)
[2018-10-21] MEDS: HEPARIN SODIUM,PORCINE 5,000 UNIT/ML 1 ML VIAL SQ SCH ×2 (09:23→16:13)
[2018-10-21] MEDS: ASPIRIN 81 MG PO SCH (09:23)
[2018-10-21] MEDS: LOSARTAN 50 MG TAB PO SCH (09:24)
[2018-10-21 11:08] LABS: Glucose,Whole Blood 92 mg/dL (75-99)
[2018-10-21] MEDS: amLODIPine 5 MG TAB PO SCH ×2 (12:25→21:42)
--- NOTE | 2018-10-21 12:56 | P.PN ---
Subjective Progress Note Date: 10/21/18 This is a pleasant 83-year-old female who follows regularly with Dr. Khoa Silva in the office. She has known history of coronary artery disease with prior myocardial infarctions and multiple stent placements, most recently in April 2018 patient underwent successful stenting of the mid LAD and successful stenting of the proximal circumflex. She also has a history of hypertension, prior CVA, hyperlipidemia, diabetes, hypothyroidis, chronic back pain, patient had come into the clinic for a back injection for pain, overall she stated that was uneventful. She went home and developed a midsternal chest pressure and heaviness. Initially she felt as though it may be heartburn, the symptoms progressively worsened, therefore she called her son and came to the emergency room for further evaluation. She does state that the symptoms were quite severe. Chest x-ray on arrival here did not reveal any active cardiopulmonary disease. CTA of the chest did not reveal any evidence of pulmonary embolism. EKG showed a normal sinus rhythm with a right bundle branch block pattern, anterior lateral ST depression and T wave inversion, with inferior ST changes noted. Potassium 4.9, hemoglobin 13.5, platelet count 281. D-dimer 0.28, sodium 126, potassium 4.9, BUN 21 and creatinine 0.8. Glucose 439 on arrival. Troponin 0.012, second troponin 0.662. BNP 227. At the time of my examination this morning, patient still complaining of some midsternal chest pressure and heaviness which she is rating at about a 6. 10/21/2018 Patient was taken to the cardiac catheterization lab, where she underwent PTCA and stenting of the ostium of the circumflex artery. The patient was seen and examined this morning, she feels well, denies any chest pain or difficulty in breathing. Her blood pressure this morning 212/80, Norvasc was given. Patient is quite eager to be discharged home today. I told her that we will recheck the blood pressure in approximately 2 hours, if it remains stable she should be able to go home today. If the blood pressure remains significantly elevated we will hold her discharge until tomorrow. Objective - Vital Signs Vital signs: Vital Signs Temp 98.2 F 10/21/18 12:00 Pulse 63 10/21/18 12:00 Resp 18 10/21/18 12:00 BP 212/80 10/21/18 12:00 Pulse Ox 96 10/21/18 12:00 Intake & Output 10/20/18 10/21/18 10/21/18 18:59 06:59 18:59 Intake Total 720 450 240 Balance 720 450 240 Weight 74.8 kg Intake: Intake, IV Titration 450 Amount Sodium Chloride 0.9% 1, 450 000 ml @ 75 mls/hr IV . [id number] [facility] Rx#:[id number] Oral 720 240 Other: Voiding Method Toilet Toilet Toilet # Voids 2 1 1 # Bowel Movements 1 1 - Exam PHYSICAL EXAMINATION: HEENT: Head is atraumatic, normocephalic. Pupils equal, round. Neck is supple. There is no elevated jugular venous pressure. HEART EXAMINATION: Heart sounds regular, S1 and S2 with a systolic murmur. CHEST EXAMINATION: Lungs are clear to auscultation and precussion. No chest wall tenderness is noted on palpation or with deep breathing. ABDOMEN: Soft, nontender. Bowel sounds are heard. No organomegaly noted. EXTREMITIES: 2+ peripheral pulses with no evidence of peripheral edema and no calf tenderness noted. NEUROLOGIC patient is awake, alert and oriented x3. - Labs CBC & Chem 7: 10/20/18 05:54 10/20/18 05:54 Labs: Abnormal Lab Results - Last 24 Hours (Table) 10/20/18 10/20/18 10/21/18 Range/Units 16:45 21:30 06:09 POC Glucose (mg/dL) 130 H 157 H 145 H (75-99) mg/dL Assessment and Plan Plan: Assessment and plan #1 symptoms of chest pressure and heaviness suggestive of acute coronary syndrome. Initial troponin 0.012, subsequent troponin 0.66. EKG shows normal sinus rhythm with right bundle branch block pattern, anterior lateral T-wave changes with inferior ST-T wave changes. Status post angioplasty and stenting of the circumflex #2 known history of coronary artery disease with multiple stent placements in the past. Most recently in April 2018 patient underwent successful stenting of the mid LAD and successful stenting of the proximal circumflex. #3 hypertension #4 hyperlipidemia #5 diabetes #6 chronic back pain for which the patient underwent a pain injection yesterday. #7 hyponatremia, sodium 126 Plan Echocardiogram with Doppler study revealed an ejection fraction of 55-60%. If the patient's blood pressure comes down nicely she may be able to be discharged home today. Remains elevated we will hold her discharge until tomorrow. Follow -up appointment will be made with Dr. Menezes in the office post discharge. DNP note has been reviewed, I agree with a documented findings and plan of care. Patient was seen and examined.
[2018-10-21] MEDS ORDERED: FUROSEMIDE 10 MG/ML 2 ML VIAL IV ONE (16:15)
[2018-10-21 16:36] LABS: Glucose,Whole Blood 130 mg/dL (75-99)
[2018-10-21 21:05] LABS: Glucose,Whole Blood 202 mg/dL (75-99)
[2018-10-21] MEDS: ALPRAZolam 0.5 MG TAB PO PRN (21:42)
[2018-10-21] MEDS: ATORVASTATIN 80 MG TAB PO SCH (21:42)
[2018-10-21] MEDS: metFORMIN 500 MG TAB PO SCH (21:42)
--- NOTE | 2018-10-22 01:07 | P.PN ---
Subjective Progress Note Date: 10/21/18 Principal diagnosis: Unstable angina. Status post cardiac catheterization and stent placement Patient is a 83-year-old female with a known history of coronary artery disease and stent placement 6, history of AR, most recent cardiac catheterization with unsuccessful stenting in April 2018, diabetes type 2, hypothyroidism, hypertension, hyperlipidemia and other multiple medical problems including chronic back pain came to the hospital with complaints of mid retrosternal chest pain/pressure and heavy feeling. 8/ 10 in severity on admission Patient came to the hospital with worsening symptoms. Associated with short of breath.. Patient does have nausea. No ulcers or vomiting. No headache or dizziness or lightheadedness. Chest x-ray showed no acute cardio pulmonary process CT angiogram showed no evidence of pulmonary embolism EKG showed sinus rhythm with right bundle branch block pattern. Sodium 126. Troponin 0.012 and .662. NTpro BNP 227 Blood sugar is elevated admission greater than 400 Sodium 126, BUN 21 and creatinine 0.8 10/20/2017 Patient is able to sit in the chair. No complains of chest pain or shortness of breath. Patient does have constipation. No abdominal pain. No nausea vomiting. No fever no chills. No other acute overnight issues. 10/21/2017 Patient denied any complaints of chest pain or shortness of breath. Otherwise blood pressure is elevated with SBP 212 mmHg in the morning her patient was started on Norvasc 5 mg twice a day and continue with Cozaar and metoprolol. Cardiology is following. No other acute overnight issues. No fever no chills. No complaints of pain. No headache or dizziness or lightheadedness. Next line Current medications reviewed Objective - Vital Signs Vital signs: Vital Signs Temp 97.4 F L 10/21/18 20:00 Pulse 72 10/21/18 20:00 Resp 18 10/21/18 20:00 BP 160/64 10/21/18 20:00 Pulse Ox 97 10/21/18 20:00 Intake & Output 10/21/18 10/21/18 10/22/18 06:59 18:59 06:59 Intake Total 450 1200 Balance 450 1200 Weight 74.8 kg Intake: Intake, IV Titration 450 Amount Sodium Chloride 0.9% 1, 450 000 ml @ 75 mls/hr IV . [id number] [facility] Rx#:[id number] Oral 1200 Other: Voiding Method Toilet Toilet Toilet # Voids 1 1 # Bowel Movements 1 2 - Exam PHYSICAL EXAMINATION: Patient is lying in the bed comfortably, no acute distress, awake alert and oriented.. HEENT: Normocephalic. Neck is supple. Pupils reactive. Nostrils clear. Oral cavity is moist. Ears reveal no drainage. Neck reveals no JVD, carotid bruits, or thyromegaly. CHEST EXAMINATION: Trachea is central. Symmetrical expansion. Lung tsai clear to auscultation and percussion. CARDIAC: Normal S1, S2 with no gallops. No murmurs ABDOMEN: Soft. Bowel sounds normal. No organomegaly. No abdominal bruits. Extremities: reveal no edema. No clubbing or cyanosis Neurologically awake, alert, oriented x3 with well-coordinated movements. No focal deficits noted Skin: No rash or skin lesions. Psychiatric: Coperative. Nonsuicidal Musculoskeletal: No joint swelling or deformity. Normal range of motion. - Labs CBC & Chem 7: 10/20/18 05:54 10/20/18 05:54 Labs: Abnormal Lab Results - Last 24 Hours (Table) 10/21/18 10/21/18 10/21/18 Range/Units 06:09 16:34 21:04 POC Glucose (mg/dL) 145 H 130 H 202 H (75-99) mg/dL Assessment and Plan Assessment: Chest pain possible unstable angina. Status post cardiac catheterization and stent placement. History of coronary artery disease with multiple stent placement Diabetes type 2. [id number]. uncontrolled with hyperglycemia on admission Hyponatremia 126 possible pseudohyponatremia with hyperglycemia. 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 DVT prophylaxis with heparin subcu Constipation. Anxiety Plan: Patient will be continued on aspirin Plavix statins and beta blockers. Continue with Cozaar and Norvasc 5 mg twice a day was ordered. IV fluids were discontinued yesterday. 2-D echocardiogram was done showed normal ejection fraction and no evidence of pulmonary hypertension. No significant valvular abnormalities noted.. Cardiology is following.. Continue the pain management and further recommendations based on the clinical course. Patient was started back on home hypoglycemic medications and insulin sliding scale. Continue with other home medications. Prognosis is guarded with multiple medical problems and comorbid conditions. Time with Patient: Greater than 30
[2018-10-22] MEDS: ACETAMINOPHEN TAB 500 MG TAB PO PRN (01:22)
[2018-10-22] MEDS: HEPARIN SODIUM,PORCINE 5,000 UNIT/ML 1 ML VIAL SQ SCH ×2 (01:23→08:48)
[2018-10-22 06:09] LABS: Basophils # (A) 0.1 k/uL (0-0.2); Basophils % (A) 1 %; Eosinophils # (A) 0.4 k/uL (0-0.7); Eosinophils % (A) 4 %; HCT 30.6 % (34.0-46.0); HGB 10.4 gm/dL (11.4-16.0); Lymphocytes # (A) 2.6 k/uL (1.0-4.8); Lymphocytes % (A) 28 %; MCH 30.9 pg (25.0-35.0); MCHC 34.1 g/dL (31.0-37.0); MCV 90.4 fL (80.0-100.0); Mean Platelet Volume 7.1; Monocytes # (A) 0.6 k/uL (0-1.0); Monocytes % (A) 6 %; Neutrophils # (A) 5.4 k/uL (1.3-7.7); Neutrophils % (A) 59 %; Platelet Count 261 k/uL (150-450); RBC 3.39 m/uL (3.80-5.40); RDW 13.5 % (11.5-15.5); WBC 9.3 k/uL (3.8-10.6)
[2018-10-22 06:21] LABS: Glucose,Whole Blood 130 mg/dL (75-99)
[2018-10-22 06:29] LABS: Anion Gap 8 mmol/L; Blood Urea Nitrogen 14 mg/dL (7-17); Carbon Dioxide 25 mmol/L (22-30); Chloride 97 mmol/L (98-107); Glucose 136 mg/dL (74-99); Potassium 4.3 mmol/L (3.5-5.1); Sodium 130 mmol/L (137-145)
[2018-10-22] MEDS: INSULIN ASPART (NovoLOG) 100 UNIT/ML VIAL SQ SCH ×2 (06:32→11:55)
[2018-10-22] MEDS: GLIMEPIRIDE 1 MG TAB PO SCH (06:36)
[2018-10-22] MEDS: LEVOTHYROXINE 88 MCG TAB PO SCH (06:36)
[2018-10-22] MEDS: metFORMIN 500 MG TAB PO SCH (06:36)
[2018-10-22] MEDS: METOPROLOL TARTRATE 50 MG TAB PO SCH (08:48)
[2018-10-22] MEDS: amLODIPine 5 MG TAB PO SCH (08:48)
[2018-10-22] MEDS: ASPIRIN 81 MG PO SCH (08:48)
[2018-10-22] MEDS: LOSARTAN 50 MG TAB PO SCH (08:48)
[2018-10-22] MEDS: CLOPIDOGREL 75 MG TAB PO SCH (08:48)
[2018-10-22 10:11] VITALS: RESP 18; TEMP 96.7
--- NOTE | 2018-10-22 10:44 | P.PN ---
Subjective Progress Note Date: 10/22/18 This is a pleasant 83-year-old female who follows regularly with Dr. Khoa Silva in the office. She has known history of coronary artery disease with prior myocardial infarctions and multiple stent placements, most recently in April 2018 patient underwent successful stenting of the mid LAD and successful stenting of the proximal circumflex. She also has a history of hypertension, prior CVA, hyperlipidemia, diabetes, hypothyroidis, chronic back pain, patient had come into the clinic for a back injection for pain, overall she stated that was uneventful. She went home and developed a midsternal chest pressure and heaviness. Initially she felt as though it may be heartburn, the symptoms progressively worsened, therefore she called her son and came to the emergency room for further evaluation. She does state that the symptoms were quite severe. Chest x-ray on arrival here did not reveal any active cardiopulmonary disease. CTA of the chest did not reveal any evidence of pulmonary embolism. EKG showed a normal sinus rhythm with a right bundle branch block pattern, anterior lateral ST depression and T wave inversion, with inferior ST changes noted. Potassium 4.9, hemoglobin 13.5, platelet count 281. D-dimer 0.28, sodium 126, potassium 4.9, BUN 21 and creatinine 0.8. Glucose 439 on arrival. Troponin 0.012, second troponin 0.662. BNP 227. At the time of my examination this morning, patient still complaining of some midsternal chest pressure and heaviness which she is rating at about a 6. 10/21/2018 Patient was taken to the cardiac catheterization lab, where she underwent PTCA and stenting of the ostium of the circumflex artery. The patient was seen and examined this morning, she feels well, denies any chest pain or difficulty in breathing. Her blood pressure this morning 212/80, Norvasc was given. Patient is quite eager to be discharged home today. I told her that we will recheck the blood pressure in approximately 2 hours, if it remains stable she should be able to go home today. If the blood pressure remains significantly elevated we will hold her discharge until tomorrow. 10/22/2018 Patient seen and examined this morning, up ambulating with cardiac rehab today, upon returning back to her regular blood pressure was noted to be in the 180 systolic region, it was again rechecked 10 minutes later on came back to be 150/ 68. Overall the patient states she feels tired but denies any chest pain in her breathing is stable. She should be able to be discharged home today from cardiology's perspective. Objective - Vital Signs Vital signs: Vital Signs Temp 96.7 F L 10/22/18 08:40 Pulse 68 10/22/18 08:40 Resp 18 10/22/18 08:40 BP 151/68 10/22/18 08:40 Pulse Ox 98 10/22/18 08:40 Intake & Output 10/21/18 10/22/18 10/22/18 18:59 06:59 18:59 Intake Total 1200 Balance 1200 Weight 72.3 kg Intake: Oral 1200 Other: Voiding Method Toilet Toilet # Voids 1 1 # Bowel Movements 2 0 - Exam PHYSICAL EXAMINATION: HEENT: Head is atraumatic, normocephalic. Pupils equal, round. Neck is supple. There is no elevated jugular venous pressure. HEART EXAMINATION: Heart sounds regular, S1 and S2 with a systolic murmur. CHEST EXAMINATION: Lungs are clear to auscultation and precussion. No chest wall tenderness is noted on palpation or with deep breathing. ABDOMEN: Soft, nontender. Bowel sounds are heard. No organomegaly noted. EXTREMITIES: 2+ peripheral pulses with no evidence of peripheral edema and no calf tenderness noted. NEUROLOGIC patient is awake, alert and oriented x3. - Labs CBC & Chem 7: 10/22/18 05:24 10/22/18 05:24 Labs: Abnormal Lab Results - Last 24 Hours (Table) 10/21/18 10/21/18 10/22/18 Range/Units 16:34 21:04 05:24 RBC 3.39 L (3.80-5.40) m/uL Hgb 10.4 L (11.4-16.0) gm/dL Hct 30.6 L (34.0-46.0) % Sodium (137-145) mmol/L Chloride (98-107) mmol/L Glucose (74-99) mg/dL POC Glucose (mg/dL) 130 H 202 H (75-99) mg/dL Calcium (8.4-10.2) mg/dL 10/22/18 10/22/18 Range/Units 05:24 06:20 RBC (3.80-5.40) m/uL Hgb (11.4-16.0) gm/dL Hct (34.0-46.0) % Sodium 130 L (137-145) mmol/L Chloride 97 L (98-107) mmol/L Glucose 136 H (74-99) mg/dL POC Glucose (mg/dL) 130 H (75-99) mg/dL Calcium 8.0 L (8.4-10.2) mg/dL Assessment and Plan Plan: Assessment and plan #1 symptoms of chest pressure and heaviness suggestive of acute coronary syndrome. Initial troponin 0.012, subsequent troponin 0.66. EKG shows normal sinus rhythm with right bundle branch block pattern, anterior lateral T-wave changes with inferior ST-T wave changes. Status post angioplasty and stenting of the circumflex #2 known history of coronary artery disease with multiple stent placements in the past. Most recently in April 2018 patient underwent successful stenting of the mid LAD and successful stenting of the proximal circumflex. #3 hypertension #4 hyperlipidemia #5 diabetes #6 chronic back pain for which the patient underwent a pain injection yesterday. #7 hyponatremia, sodium 126 Plan From cardiology's perspective, patient may be able to be discharged home today. We will make her a follow-up appointment to see Dr. Menezes in the office post discharge. Patient will be discharged home on Norvasc 5 mg one tablet by mouth twice a day, aspirin 81 mg daily, Lipitor 80 mg daily, Plavix 75 mg daily, losartan 100 mg daily, metoprolol 50 mg twice a day, and sublingual nitroglycerin as needed for chest pain. DNP note has been reviewed, I agree with a documented findings and plan of care. Patient was seen and examined.
[2018-10-22 11:18] VITALS: BP 175/72; PULSE 67
--- NOTE | 2018-10-22 11:46 | P.DS ---
Providers Date of admission: 10/18/18 21:56 Expected date of discharge: 10/22/18 Attending physician: Anthony Cameron Consults: 10/18/18 21:57 Consult Physician Urgent Consulting Provider: Antonio Treadwell Consult Reason/Comments: unstable angina Do you want consulting provider notified?: Yes Primary care physician: Anthony Cameron [facility] Course: 83-year-old female presented emergency room with complaints of chest pain. Patient is a history of coronary disease diabetes type 2 hyperlipidemia. Patient was evaluated by cardiology is post cardiac catheterization with stent placement. Patient was ambulated with no further chest pain. Cardiology is cleared for discharge home to follow-up with family physician and cardiology Assessment Chest pain unstable angina post cardiac cath with stent placement History of coronary disease with multiple stent placement Diabetes type 2 Hyponatremia Hypertension Hyperlipidemia GERD Chronic back pain Hypothyroidism Osteoarthritis history of CVA with left eye blindness History consultation Anxiety disorder Plan Medications been adjusted for cardiology Patient follow-up with cardiology and family physician Dr. Anthony Cameron Patient Condition at Discharge: Fair Plan - Discharge Summary New Discharge Prescriptions: New amLODIPine [Norvasc] 5 mg PO BID #60 tab Losartan [Cozaar] 100 mg PO DAILY #30 tab Continue Aspirin 81 mg PO HS Metoprolol Tartrate [Lopressor] 50 mg PO BID Clopidogrel [Plavix] 75 mg PO DAILY Vits A,C,E/Lutein/Minerals [Ocuvite with Lutein Tablet] 2 tab PO DAILY Cholecalciferol [Vitamin D3] 1,000 unit PO DAILY Levothyroxine Sodium [Synthroid] 88 mcg PO DAILY ALPRAZolam [Xanax] 0.25 mg PO DAILY PRN #30 PRN Reason: Anxiety metFORMIN HCL [Glucophage] 500 mg PO BID Glimepiride [Amaryl] 1 mg PO AC-BRKFST Acetaminophen Tab [Tylenol] 500 mg PO Q6HR PRN tab PRN Reason: Fever And/ Or Pain Furosemide [Lasix] 20 mg PO DAILY Hydrochlorothiazide 12.5 mg PO DAILY Acetaminophen with Codeine [Tylenol w/codeine #3] 1 tab PO Q6H PRN PRN Reason: Pain Atorvastatin [Lipitor] 80 mg PO HS Nitroglycerin Sl Tabs [Nitrostat] 0.4 mg SUBLINGUAL Q5M PRN #25 tab PRN Reason: Chest Pain Discontinued Losartan Potassium [Cozaar] 50 mg PO BID #60 tablet Discharge Medication List Aspirin 81 mg PO HS 01/21/14 [History] Clopidogrel [Plavix] 75 mg PO DAILY 01/21/14 [History] Metoprolol Tartrate [Lopressor] 50 mg PO BID 01/21/14 [History] Cholecalciferol [Vitamin D3] 1,000 unit PO DAILY 05/03/16 [History] Vits A,C,E/Lutein/Minerals [Ocuvite with Lutein Tablet] 2 tab PO DAILY 05/03/16 [History] Levothyroxine Sodium [Synthroid] 88 mcg PO DAILY 05/31/17 [History] ALPRAZolam [Xanax] 0.25 mg PO DAILY PRN #30 06/05/17 [Rx] Glimepiride [Amaryl] 1 mg PO AC-BRKFST 04/28/18 [History] metFORMIN HCL [Glucophage] 500 mg PO BID 04/28/18 [History] Acetaminophen Tab [Tylenol] 500 mg PO Q6HR PRN tab 05/01/18 [Rx] Acetaminophen with Codeine [Tylenol w/codeine #3] 1 tab PO Q6H PRN 09/25/18 [ History] Furosemide [Lasix] 20 mg PO DAILY 09/25/18 [History] Hydrochlorothiazide 12.5 mg PO DAILY 09/25/18 [History] Atorvastatin [Lipitor] 80 mg PO HS 10/18/18 [History] Losartan [Cozaar] 100 mg PO DAILY #30 tab 10/21/18 [Rx] Nitroglycerin Sl Tabs [Nitrostat] 0.4 mg SUBLINGUAL Q5M PRN #25 tab 10/21/18 [Rx ] amLODIPine [Norvasc] 5 mg PO BID #60 tab 10/21/18 [Rx] Follow up Appointment(s)/Referral(s): Anthony Cameron MD [Primary Care Provider] - 10/30/18 8:40 am (Monday) Les Silva MD [STAFF PHYSICIAN] - 10/30/18 11:00 am (Monday) Patient Instructions/Handouts: *Surgery [facility] - After Heart Catheterization - Group Controller Instructions, Left Heart Catheterization (DC), Hypertension (DC)
[2018-10-22 11:50] LABS: Glucose,Whole Blood 79 mg/dL (75-99)
== END 2018-10-22 13:11 | disposition home or self-care (01) | DRG 247 ==
LOC: EC 17:25 → 3SCARD 21:56
PROVIDERS: ADMIT Family Medicine; ATTEND Family Medicine
PROC: B2111ZZ Fluoroscopy of Multiple Coronary Arteries using Low Osmolar Contrast (ICD-10-PCS; 2018-10-19)
PROC: 027034Z Dilation of Coronary Artery, One Artery with Drug-eluting Intraluminal Device, Percutaneous Approach (ICD-10-PCS; principal; 2018-10-19 12:00)
PROC: 4A023N7 Measurement of Cardiac Sampling and Pressure, Left Heart, Percutaneous Approach (ICD-10-PCS; 2018-10-19 12:00)
DX: I21.4 Non-ST elevation (NSTEMI) myocardial infarction (principal); E87.1 Hypo-osmolality and hyponatremia; E87.2 Acidosis; I25.110 Atherosclerotic heart disease of native coronary artery with unstable angina pectoris; E11.65 Type 2 diabetes mellitus with hyperglycemia; E03.9 Hypothyroidism, unspecified; E78.5 Hyperlipidemia, unspecified; M54.9 Dorsalgia, unspecified; G89.29 Other chronic pain; K21.9 Gastro-esophageal reflux disease without esophagitis; I45.10 Unspecified right bundle-branch block; K59.00 Constipation, unspecified; H54.8 Legal blindness, as defined in USA; H35.30 Unspecified macular degeneration; F41.9 Anxiety disorder, unspecified; M19.041 Primary osteoarthritis, right hand; M19.042 Primary osteoarthritis, left hand; G43.909 Migraine, unspecified, not intractable, without status migrainosus; I10 Essential (primary) hypertension; M19.90 Unspecified osteoarthritis, unspecified site; I25.2 Old myocardial infarction; Z95.5 Presence of coronary angioplasty implant and graft; Z98.51 Tubal ligation status; I69.998 Other sequelae following unspecified cerebrovascular disease; Z79.02 Long term (current) use of antithrombotics/antiplatelets; Z79.82 Long term (current) use of aspirin; Z79.84 Long term (current) use of oral hypoglycemic drugs; Z79.890 Hormone replacement therapy; Z79.899 Other long term (current) drug therapy; Z82.49 Family history of ischemic heart disease and other diseases of the circulatory system; Z90.710 Acquired absence of both cervix and uterus
CPT/HCPCS: 36415; 71046; 71275; 80048; 80053; 80061; 83735; 83880; 84484; 85025; 85379; 85610; 85730; 93005; 93306; 93458; 96361; 96374; 96375; 99285; C1874

== ENCOUNTER 2018-11-08 09:33 | Inpatient (IN) | payer MEDICARE, BC ==
[2018-11-08] MEDS ORDERED: diphenhydrAMINE 50 MG/ML 1 ML VIAL IVP STA (10:05)
[2018-11-08] MEDS ORDERED: DEXAMETHASONE SOD PHOSPHATE 10 MG/ML 1 ML VIAL IV STA (10:05)
[2018-11-08] MEDS ORDERED: FAMOTIDINE 20 MG/2 ML VIAL IV STA (10:05)
--- NOTE | 2018-11-08 10:10 | ED ---
General Adult HPI - General Chief complaint: Recheck/Abnormal Lab/Rx Stated complaint: facial swelling Time Seen by Provider: 11/08/18 09:38 Source: patient, RN notes reviewed, old records reviewed Mode of arrival: wheelchair Limitations: no limitations - History of Present Illness Initial comments: 83-year-old female presents with facial swelling which began yesterday evening around 6:30 PM. Patient had recent hospital admission with CO and cardiac stenting. She has been home for the past several weeks. Denies any new medications, denies any exposures. She did see her primary care physician who sent her to the emergency department for evaluation. She endorses left-sided headache, and left upper tooth pain. Swelling is localized to the left side of her face. Denies tongue swelling. She had some mild dyspnea however this is resolved. Review the medical record does not reveal any CHUNG inhibitor's on her medication list. She has had some mild nausea and abdominal pain for the past one month since the time of discharge. - Related Data Home Medications Medication Instructions Recorded Confirmed Aspirin 81 mg PO HS 01/21/14 11/08/18 Clopidogrel [Plavix] 75 mg PO DAILY 01/21/14 11/08/18 Metoprolol Tartrate [Lopressor] 50 mg PO BID 01/21/14 11/08/18 Cholecalciferol [Vitamin D3] 1,000 unit PO DAILY 05/03/16 11/08/18 Vits A,C,E/Lutein/Minerals 2 tab PO DAILY 05/03/16 11/08/18 [Ocuvite with Lutein Tablet] Levothyroxine Sodium [Synthroid] 88 mcg PO DAILY 05/31/17 11/08/18 Glimepiride [Amaryl] 1 mg PO AC-BRKFST 04/28/18 11/08/18 metFORMIN HCL [Glucophage] 500 mg PO BID 04/28/18 11/08/18 Acetaminophen with Codeine 1 tab PO Q6H PRN 09/25/18 11/08/18 [Tylenol w/codeine #3] Furosemide [Lasix] 20 mg PO DAILY 09/25/18 11/08/18 Hydrochlorothiazide 12.5 mg PO DAILY 09/25/18 11/08/18 Atorvastatin [Lipitor] 80 mg PO HS 10/18/18 11/08/18 Previous Rx's Medication Instructions Recorded ALPRAZolam [Xanax] 0.25 mg PO DAILY PRN #30 06/05/17 Acetaminophen Tab [Tylenol] 500 mg PO Q6HR PRN tab 05/01/18 Losartan [Cozaar] 100 mg PO DAILY #30 tab 10/21/18 Nitroglycerin Sl Tabs [Nitrostat] 0.4 mg SUBLINGUAL Q5M PRN #25 tab 10/21/18 amLODIPine [Norvasc] 5 mg PO BID #60 tab 10/21/18 Allergies Allergy/AdvReac Type Severity Reaction Status Date / Time PAPER TAPE Allergy Rash/Hives Uncoded 11/08/18 09:36 Review of Systems ROS Statement: Those systems with pertinent positive or pertinent negative responses have been documented in the HPI. ROS Other: All systems not noted in ROS Statement are negative. 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 Last Myocardial Infarction Date:: 04/2018 History of Any Multi-Drug Resistant Organisms: None Reported Past Surgical History: Back Surgery, Breast Surgery, Heart Catheterization With Stent, Hysterectomy, Orthopedic Surgery, Tubal Ligation Additional Past Surgical History / Comment(s): RIGHT EYE CATARACT REMOVAL, LASER EYE SURGERY BILATERALLY, "TUBES IN EYES NOW OUT", THYROIDECTOMY D/T NODULES, TEMPORAL ARTERY BX, L BREAST BENIGN BX, LOW BACK SURGERY, R SHOULDER ROTATOR CUFF REPAIR, CERVICAL PAIN INJECTIONS. Past Anesthesia/Blood Transfusion Reactions: Previous Problems w/ Anesthesia Additional Past Anesthesia/Blood Transfusion Reaction / Comment(s): hard to wake up Date of Last Stent Placement:: 12/22/2011 Past Psychological History: Anxiety Smoking Status: Never smoker Past Alcohol Use History: None Reported Past Drug Use History: None Reported - Past Family History Mother Family Medical History: Myocardial Infarction (CO) Additional Family Medical History / Comment(s): MOTHER OF A CO AT THE AGE OF 57YRS. Brother(s) Family Medical History: Myocardial Infarction (CO) Additional Family Medical History / Comment(s): BROTHER OF A CO AT THE AGE OF 60YRS. Father Family Medical History: No Reported History Additional Family Medical History / Comment(s): FATHER LIVED TO BE 90YRS OLD. General Exam Limitations: no limitations General appearance: alert Head exam: Present: atraumatic, normocephalic Eye exam: Present: normal appearance, PERRL, EOMI. Absent: periorbital swelling, periorbital tenderness ENT exam: Present: other (Left sided facial swelling, soft, not indurated, she does have involvement of both the upper and lower lip. No tongue or uvular involvement. She is poor dentition left upper molars) Neck exam: Present: normal inspection, full ROM. Absent: tenderness, meningismus Respiratory exam: Present: respiratory distress, rales Cardiovascular Exam: Present: regular rate, normal rhythm GI/Abdominal exam: Present: soft, distended. Absent: tenderness, guarding, rebound Extremities exam: Present: normal capillary refill, pedal edema Neurological exam: Present: alert, oriented X3, CN II-XII intact. Absent: motor sensory deficit Psychiatric exam: Present: normal affect, normal mood Skin exam: Present: warm, dry, intact. Absent: cyanosis, diaphoretic Course Vital Signs 11/08/18 11/08/18 11/08/18 09:34 10:00 10:02 Temperature 97.5 F L Pulse Rate 75 65 66 Respiratory 16 16 16 Rate Blood Pressure 135/76 168/67 168/67 O2 Sat by Pulse 98 100 100 Oximetry EKG Findings - EKG Comments: EKG Findings:: EKG: Normal sinus rhythm, right bundle branch block, possible inferior infarct age undetermined, rate of 66, [place] interval 200, QRS duration 142, QTC 459, no ST segment elevation, similar compared to previous EKG October 19 Medical Decision Making - Medical Decision Making 83-year-old female presenting with left-sided facial swelling. Poor dentition on the left, some tenderness. Patient otherwise well-appearing, no tongue involvement, no pharyngeal involvement, no respiratory distress. Workup in the emergency department reveals hyponatremia 118, patient did have some history of hyponatremia although has never been this low, chloride 74. Other electrolytes within normal limits. Normal urinalysis. Head CT is obtained, negative for intracranial hemorrhage or mass effect, CT is positive for some mild sinus disease. Patient will be treated for both infectious and ALLERGIC causes of facial swelling. She will also be Done telemetry for hyponatremia, given normal saline 50 mL an hour, fluid restricted diet, will repeat blood clots in the morning. Case discussed with Dr. Cameron who will admit. - Lab Data Result diagrams: 11/08/18 09:51 11/08/18 09:51 Lab Results 11/08/18 11/08/18 11/08/18 Range/Units 09:51 09:51 09:51 WBC 5.3 (3.8-10.6) k/uL RBC 4.11 (3.80-5.40) m/uL Hgb 12.1 (11.4-16.0) gm/dL Hct 35.2 (34.0-46.0) % MCV 85.7 (80.0-100.0) fL MCH 29.5 (25.0-35.0) pg MCHC 34.5 (31.0-37.0) g/dL RDW 13.0 (11.5-15.5) % Plt Count 327 (150-450) k/uL Neutrophils % 59 % Lymphocytes % 21 % Monocytes % 14 % Eosinophils % 3 % Basophils % 1 % Neutrophils # 3.2 (1.3-7.7) k/uL Lymphocytes # 1.1 (1.0-4.8) k/uL Monocytes # 0.7 (0-1.0) k/uL Eosinophils # 0.2 (0-0.7) k/uL Basophils # 0.0 (0-0.2) k/uL Sodium 118 L* (137-145) mmol/L Potassium 3.5 (3.5-5.1) mmol/L Chloride 74 L* (98-107) mmol/L Carbon Dioxide 27 (22-30) mmol/L Anion Gap 17 mmol/L BUN 13 (7-17) mg/dL Creatinine 0.64 (0.52-1.04) mg/dL Est GFR (CKD-EPI)AfAm >90 (>60 ml/min/1.73 sqM) Est GFR (CKD-EPI)NonAf 82 (>60 ml/min/1.73 sqM) Glucose 164 H (74-99) mg/dL Calcium 9.0 (8.4-10.2) mg/dL Total Bilirubin 0.8 (0.2-1.3) mg/dL AST 30 (14-36) U/L ALT 35 (9-52) U/L Alkaline Phosphatase 111 (38-126) U/L NT-Pro-B Natriuret Pep 219 pg/mL Total Protein 7.2 (6.3-8.2) g/dL Albumin 4.7 (3.5-5.0) g/dL Urine Color Urine Appearance (Clear) Urine pH (5.0-8.0) Ur Specific [place] (1.001-1.035) Urine Protein (Negative) Urine Glucose (UA) (Negative) Urine Ketones (Negative) Urine Blood (Negative) Urine Nitrite (Negative) Urine Bilirubin (Negative) Urine Urobilinogen (<2.0) mg/dL Ur Leukocyte Esterase (Negative) 11/08/18 Range/Units 11:40 WBC (3.8-10.6) k/uL RBC (3.80-5.40) m/uL Hgb (11.4-16.0) gm/dL Hct (34.0-46.0) % MCV (80.0-100.0) fL MCH (25.0-35.0) pg MCHC (31.0-37.0) g/dL RDW (11.5-15.5) % Plt Count (150-450) k/uL Neutrophils % % Lymphocytes % % Monocytes % % Eosinophils % % Basophils % % Neutrophils # (1.3-7.7) k/uL Lymphocytes # (1.0-4.8) k/uL Monocytes # (0-1.0) k/uL Eosinophils # (0-0.7) k/uL Basophils # (0-0.2) k/uL Sodium (137-145) mmol/L Potassium (3.5-5.1) mmol/L Chloride (98-107) mmol/L Carbon Dioxide (22-30) mmol/L Anion Gap mmol/L BUN (7-17) mg/dL Creatinine (0.52-1.04) mg/dL Est GFR (CKD-EPI)AfAm (>60 ml/min/1.73 sqM) Est GFR (CKD-EPI)NonAf (>60 ml/min/1.73 sqM) Glucose (74-99) mg/dL Calcium (8.4-10.2) mg/dL Total Bilirubin (0.2-1.3) mg/dL AST (14-36) U/L ALT (9-52) U/L Alkaline Phosphatase (38-126) U/L NT-Pro-B Natriuret Pep pg/mL Total Protein (6.3-8.2) g/dL Albumin (3.5-5.0) g/dL Urine Color Colorless Urine Appearance Clear (Clear) Urine pH 7.0 (5.0-8.0) Ur Specific [place] 1.001 (1.001-1.035) Urine Protein Negative (Negative) Urine Glucose (UA) Negative (Negative) Urine Ketones Negative (Negative) Urine Blood Negative (Negative) Urine Nitrite Negative (Negative) Urine Bilirubin Negative (Negative) Urine Urobilinogen <2.0 (<2.0) mg/dL Ur Leukocyte Esterase Negative (Negative) Disposition Clinical Impression: Hyponatremia, Facial swelling Disposition: ADMITTED IP TO THIS [facility] Condition: Stable Is patient prescribed a controlled substance at d/c from ED?: No Referrals: Anthony Cameron MD [Primary Care Provider] - 1-2 days Decision to Admit Reason: Admit from EC Decision Date: 11/08/18 Decision Time: 12:24
[2018-11-08 10:28] LABS: Basophils % (A) 1 %; Eosinophils # (A) 0.2 k/uL (0-0.7); Eosinophils % (A) 3 %; HCT 35.2 % (34.0-46.0); HGB 12.1 gm/dL (11.4-16.0); Lymphocytes # (A) 1.1 k/uL (1.0-4.8); Lymphocytes % (A) 21 %; MCH 29.5 pg (25.0-35.0); MCHC 34.5 g/dL (31.0-37.0); MCV 85.7 fL (80.0-100.0); Mean Platelet Volume 7.5; Monocytes # (A) 0.7 k/uL (0-1.0); Monocytes % (A) 14 %; Neutrophils # (A) 3.2 k/uL (1.3-7.7); Neutrophils % (A) 59 %; Platelet Count 327 k/uL (150-450); RBC 4.11 m/uL (3.80-5.40); WBC 5.3 k/uL (3.8-10.6)
[2018-11-08 10:44] LABS: ALT 35 U/L (9-52); AST 30 U/L (14-36); Albumin 4.7 g/dL (3.5-5.0); Alkaline Phosphatase 111 U/L (38-126); Anion Gap 17 mmol/L; Blood Urea Nitrogen 13 mg/dL (7-17); Carbon Dioxide 27 mmol/L (22-30); Glucose 164 mg/dL (74-99); Potassium 3.5 mmol/L (3.5-5.1); Total Bilirubin 0.8 mg/dL (0.2-1.3); Total Protein 7.2 g/dL (6.3-8.2)
--- NOTE | 2018-11-08 10:53 | XR ---
EXAMINATION TYPE: XR chest 2V DATE OF EXAM: 11/08/2018 COMPARISON: Chest x-ray and CT chest October 18, 2018 HISTORY: Chest pain. TECHNIQUE: Frontal and lateral views of the chest are obtained. FINDINGS: There is some chronic parenchymal change without new suspicious focal air space opacity, p leural effusion, or pneumothorax seen. The cardiac silhouette size is stable and mildly enlarged. The osseous structures are intact. IMPRESSION: Chronic changes and cardiomegaly without new acute pulmonary process.
--- NOTE | 2018-11-08 10:59 | CT ---
EXAMINATION TYPE: CT brain wo con, CT sinus wo con DATE OF EXAM: 11/08/2018 HISTORY: Facial swelling, pain and nausea, headache. CT DLP: 941.4 (accession [id number]), brain's dlp of 941.4 (accession [id number]) mGycm. Automated Expos ure Control for Dose Reduction was Utilized. TECHNIQUE: CT scan of the head and sinuses are performed without contrast. COMPARISON: Prior CT brain June 02, 2017 FINDINGS: There is no acute intracranial hemorrhage or midline shift identified. There is diffuse v entricular and sulcal prominence consistent with diffuse age-related cerebral atrophy. There is low- attenuation in the periventricular white matter consistent with chronic small vessel ischemic change. The calvarium is intact. No suspicious opacification of mastoid air cells is seen. There is stable 1.1 cm small mucous retention cyst or polyp in the anterior inferior left maxillary s inus. There is new minimal mucosal thickening inferiorly in the right maxillary sinus. There is stabl e mild to minimal mucosal thickening involving anterior ethmoid sinuses bilaterally remainder paranas al sinuses are clear without suspicious opacification or air-fluid levels. Ostiomeatal complex is pat ent bilaterally on coronal images. The globes are intact bilaterally. Right lens is thinned similar to prior. Intraconal fat is preserve d. Vascular calcification distal internal carotid arteries is redemonstrated bilaterally. IMPRESSION: 1. No acute intracranial hemorrhage or midline shift. There is mild diffuse age-related cerebral atr ophy and more moderate chronic small vessel ischemic change redemonstrated. No significant change fr om prior CT. 2. Mild chronic paranasal sinus disease, no acute sinusitis evident.
[2018-11-08 11:01] LABS: Sodium 118 mmol/L (137-145)
[2018-11-08 11:02] LABS: Chloride 74 mmol/L (98-107)
[2018-11-08 12:02] LABS: Appearance,Urine Clear (Clear); Bilirubin,Urine Negative (Negative); Blood,Urine Negative (Negative); Color,Urine Colorless; Glucose,Urine (UA) Negative (Negative); Ketones,Urine Negative (Negative); Leukocyte Esterase,Urine Negative (Negative); Nitrite,Urine Negative (Negative); Protein,Urine Negative (Negative); Specific Gravity,Urine 1.001 (1.001-1.035); Urobilinogen,Urine <2.0 mg/dL (<2.0)
[2018-11-08] MEDS ORDERED: AMPICILLIN-SULBACTAM 1.5 GM in SODIUM CHLORIDE 0.9% 50 ML IVPB STA (12:14)
[2018-11-08] MEDS ORDERED: NALOXONE 0.4 MG/ML 1 ML VIAL IV PRN (12:15)
[2018-11-08] MEDS ORDERED: ACETAMINOPHEN TAB 325 MG TAB PO PRN (12:15)
[2018-11-08] MEDS ORDERED: diphenhydrAMINE 50 MG/ML 1 ML VIAL IVP PRN (12:18)
[2018-11-08] MEDS ORDERED: Acetaminophen-Codeine 300-30mg TAB PO PRN (13:34)
[2018-11-08] MEDS: SODIUM CHLORIDE 0.9% 1,000 ML IV SCH (15:15)
[2018-11-08 16:44] LABS: Glucose,Whole Blood 256 mg/dL (75-99)
--- NOTE | 2018-11-08 17:20 | P.HPIM ---
History of Present Illness 83-year-old female on presented the emergency room with pain and swelling to left side of face. CT of sinuses and brain shows a chronic sinusitis. Patient does have questionable molar fractured to upper left of jaw. Patient states improvement post antibiotic and steroid. 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 Last Myocardial Infarction Date:: 04/2018 History of Any Multi-Drug Resistant Organisms: None Reported Past Surgical History: Back Surgery, Breast Surgery, Heart Catheterization With Stent, Hysterectomy, Orthopedic Surgery, Tubal Ligation Additional Past Surgical History / Comment(s): PCI with a total of 7 stents, low back surgery, L breast benign bx, R rotator cuff repair, R eye cataract removed, multiple bilateral laser eye surgeries, bilateral eye stents-R one fell out, thyroidectomy d/t nodules, temporal artery bx, cervical and lumbar injections. Past Anesthesia/Blood Transfusion Reactions: Previous Problems w/ Anesthesia Additional Past Anesthesia/Blood Transfusion Reaction / Comment(s): hard to wake up Date of Last Stent Placement:: 10/22/18 Smoking Status: Never smoker - Past Family History Mother Family Medical History: Myocardial Infarction (ME) Additional Family Medical History / Comment(s): MOTHER OF A ME AT THE AGE OF 57YRS. Brother(s) Family Medical History: Myocardial Infarction (ME) Additional Family Medical History / Comment(s): BROTHER OF A ME AT THE AGE OF 60YRS. Father Family Medical History: No Reported History Additional Family Medical History / Comment(s): FATHER LIVED TO BE 90YRS OLD. Medications and Allergies Home Medications Medication Instructions Recorded Confirmed Type Aspirin 81 mg PO HS 01/21/14 11/08/18 History Clopidogrel [Plavix] 75 mg PO DAILY 01/21/14 11/08/18 History Metoprolol Tartrate [Lopressor] 50 mg PO BID 01/21/14 11/08/18 History Cholecalciferol [Vitamin D3] 1,000 unit PO DAILY 05/03/16 11/08/18 History Vits A,C,E/Lutein/Minerals 2 tab PO DAILY 05/03/16 11/08/18 History [Ocuvite with Lutein Tablet] Levothyroxine Sodium [Synthroid] 88 mcg PO DAILY 05/31/17 11/08/18 History ALPRAZolam [Xanax] 0.25 mg PO DAILY PRN #30 06/05/17 11/08/18 Rx Glimepiride [Amaryl] 1 mg PO AC-BRKFST 04/28/18 11/08/18 History metFORMIN HCL [Glucophage] 500 mg PO BID 04/28/18 11/08/18 History Acetaminophen Tab [Tylenol] 500 mg PO Q6HR PRN tab 05/01/18 11/08/18 Rx Acetaminophen with Codeine 1 tab PO Q6H PRN 09/25/18 11/08/18 History [Tylenol w/codeine #3] Furosemide [Lasix] 20 mg PO DAILY 09/25/18 11/08/18 History Hydrochlorothiazide 12.5 mg PO DAILY 09/25/18 11/08/18 History Atorvastatin [Lipitor] 80 mg PO HS 10/18/18 11/08/18 History Losartan [Cozaar] 100 mg PO DAILY #30 tab 10/21/18 11/08/18 Rx Nitroglycerin Sl Tabs [Nitrostat] 0.4 mg SUBLINGUAL Q5M PRN #25 tab 10/21/18 11/08/18 Rx amLODIPine [Norvasc] 5 mg PO BID #60 tab 10/21/18 11/08/18 Rx Allergies Allergy/AdvReac Type Severity Reaction Status Date / Time PAPER TAPE Allergy Rash/Hives Uncoded 11/08/18 09:36 Physical Exam Vitals: Vital Signs Temp Pulse Pulse Resp BP BP Pulse Ox 11/08/18 16:00 97.5 F L 66 20 139/65 99 11/08/18 13:44 97.5 F L 66 20 140/72 100 11/08/18 12:00 57 L 134/84 100 11/08/18 10:02 66 16 168/67 100 11/08/18 10:00 65 16 168/67 100 11/08/18 09:34 97.5 F L 75 16 135/76 98 Intake and Output 11/08/18 11/08/18 11/08/18 06:59 14:59 22:59 Intake Total 240 Output Total 300 Balance -60 Intake: Oral 240 Output: Urine 300 Other: Weight 73.028 kg - Constitutional General appearance: mild distress - EENT Left-sided facial swelling upper lip swelling pain and pressure to left maxillary sinus left eye blindness Eyes: poor dentition ENT: hard of hearing Ears: bilateral: normal - Neck Neck: normal ROM - Respiratory Respiratory: bilateral: CTA - Cardiovascular Rhythm: regular - Gastrointestinal General gastrointestinal: normal bowel sounds, soft - Integumentary Integumentary: normal - Neurologic Neurologic: CNII-XII intact - Musculoskeletal Musculoskeletal: generalized weakness - Psychiatric Psychiatric: A&O x's 3, appropriate affect, intact judgment & insight Results CBC & Chem 7: 11/08/18 09:51 11/08/18 09:51 Labs: Abnormal Lab Results - Last 24 Hours (Table) 11/08/18 11/08/18 Range/Units 09:51 16:41 Sodium 118 L* (137-145) mmol/L Chloride 74 L* (98-107) mmol/L Glucose 164 H (74-99) mg/dL POC Glucose (mg/dL) 256 H (75-99) mg/dL CT Scan - head: report reviewed Thrombosis Risk Factor Assmnt - Choose All That Apply Any of the Below Risk Factors Present?: Yes Each Factor Represents 1 point: Obesity (BMI >25) Other Risk Factors: Yes Each Risk Factor Represents 3 Points: Age 75 years or older Other congenital or acquired thrombophilia - If yes, enter type in comment: No Thrombosis Risk Factor Assessment Total Risk Factor Score: 4 Thrombosis Risk Factor Assessment Level: Moderate Risk Assessment and Plan Plan: Assessment Chronic sinusitis with facial cellulitis Dental caries Hyponatremia History of coronary disease with ME CVA/TIA Diabetes type 2 GERD Hypertension hyperlipidemia Left eye blindness Constipation Plan ENT consultation On Unasyn and prednisone
[2018-11-08] MEDS: metFORMIN 500 MG TAB PO SCH (17:22)
[2018-11-08] MEDS: AMPICILLIN-SULBACTAM 1.5 GM in SODIUM CHLORIDE 0.9% 50 ML IVPB SCH ×2 (17:22→23:37)
[2018-11-08] MEDS: ATORVASTATIN 80 MG TAB PO SCH (20:38)
[2018-11-08] MEDS: ASPIRIN 81 MG PO SCH (20:38)
[2018-11-08] MEDS: METOPROLOL TARTRATE 50 MG TAB PO SCH (20:38)
[2018-11-08] MEDS: amLODIPine 5 MG TAB PO SCH (20:40)
[2018-11-08 20:57] LABS: Glucose,Whole Blood 249 mg/dL (75-99)
[2018-11-08] MEDS: ALPRAZolam 0.25 MG TAB PO PRN (23:39)
[2018-11-09 05:55] LABS: Glucose,Whole Blood 170 mg/dL (75-99)
[2018-11-09 06:19] LABS: Basophils % (A) 0 %; Eosinophils % (A) 0 %; HGB 11.1 gm/dL (11.4-16.0); Lymphocytes # (A) 0.6 k/uL (1.0-4.8); Lymphocytes % (A) 8 %; MCH 31.1 pg (25.0-35.0); MCV 86.4 fL (80.0-100.0); Mean Platelet Volume 6.9; Monocytes # (A) 0.3 k/uL (0-1.0); Monocytes % (A) 5 %; Neutrophils # (A) 6.1 k/uL (1.3-7.7); Neutrophils % (A) 86 %; Platelet Count 294 k/uL (150-450); RBC 3.58 m/uL (3.80-5.40); RDW 13.2 % (11.5-15.5); WBC 7.1 k/uL (3.8-10.6)
[2018-11-09 06:32] LABS: Albumin 3.8 g/dL (3.5-5.0); Calcium 8.6 mg/dL (8.4-10.2); Magnesium 1.7 mg/dL (1.6-2.3); Total Bilirubin 0.6 mg/dL (0.2-1.3); Total Protein 6.2 g/dL (6.3-8.2)
[2018-11-09 06:41] LABS: Potassium 4.1 mmol/L (3.5-5.1)
[2018-11-09] MEDS: SODIUM CHLORIDE 0.9% 1,000 ML IV SCH (06:43)
[2018-11-09] MEDS: AMPICILLIN-SULBACTAM 1.5 GM in SODIUM CHLORIDE 0.9% 50 ML IVPB SCH ×4 (06:45→23:03)
[2018-11-09] MEDS: metFORMIN 500 MG TAB PO SCH ×2 (06:46→17:25)
[2018-11-09] MEDS: LEVOTHYROXINE 88 MCG TAB PO SCH (06:46)
[2018-11-09] MEDS: GLIMEPIRIDE 1 MG TAB PO SCH (06:46)
[2018-11-09] MEDS: CLOPIDOGREL 75 MG TAB PO SCH (09:56)
[2018-11-09] MEDS: METOPROLOL TARTRATE 50 MG TAB PO SCH ×2 (09:56→21:31)
[2018-11-09] MEDS: CHOLECALCIFEROL 1,000 UNIT TAB PO SCH (09:56)
[2018-11-09] MEDS: predniSONE 20 MG TAB PO SCH (09:56)
[2018-11-09 11:37] LABS: Glucose,Whole Blood 193 mg/dL (75-99)
[2018-11-09] MEDS: LOSARTAN 50 MG TAB PO SCH (12:04)
[2018-11-09] MEDS ORDERED: diphenhydrAMINE 25 MG CAP PO PRN (13:47)
--- NOTE | 2018-11-09 15:10 | P.GSCN ---
History of Present Illness Consult date: 11/09/18 Reason for Consult: Facial swelling left Requesting physician: Anthony Cameron History of present illness: This is a very pleasant 83-year-old white female who complains of a 24-48 hour history of left facial swelling. She noticed this at home and notified her son were she was taken to the emergency room and admitted for left facial swelling. She tells me that since she's been admitted for left facial swelling is getting better. The swelling started above her left posterior upper tooth. It then spread to the cheek and into the forehead. Again she tells me she is improved. Over the course of this facial swelling nothing seemed to have made it worse but the Anaprox given have made it better. She complains of long-standing sinus symptoms with drainage congestion etc. I did review the results of the patie nt's CAT scan and she was found have a mucous retention cyst on the right from the left maxillary sinus with some limited ethmoid and maxillary chronic sinusitis. Review of Systems - Constitutional Reports malaise - EENT Ears, nose, mouth and throat: Reports dental pain - Cardiovascular Denies chest pain - Respiratory Reports congestion - Gastrointestinal Denies belching - Genitourinary Genitourinary: Denies hot flashes - Musculoskeletal Denies gait dysfunction - Integumentary Denies brittle nails - Neurological Reports burning pain - Psychiatric Denies confusion - Endocrine Denies excessive sweating - Allergic/Immunologic Reports allergic rhinitis Past Medical History Past Medical History: Coronary Artery Disease (CAD), CVA/TIA, Diabetes Mellitus, Eye Disorder, GERD/Reflux, Hearing Disorder / Deafness, Hyperlipidemia, Hypertension, Myocardial Infarction (ND), Osteoarthritis (OA), Thyroid Disorder Additional Past Medical History / Comment(s): 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 Last Myocardial Infarction Date:: 04/2018 History of Any Multi-Drug Resistant Organisms: None Reported Past Surgical History: Back Surgery, Breast Surgery, Heart Catheterization With Stent, Hysterectomy, Orthopedic Surgery, Tubal Ligation Additional Past Surgical History / Comment(s): PCI with a total of 7 stents, low back surgery, L breast benign bx, R rotator cuff repair, R eye cataract removed, multiple bilateral laser eye surgeries, bilateral eye stents-R one fell out, thyroidectomy d/t nodules, temporal artery bx, cervical and lumbar injections. Past Anesthesia/Blood Transfusion Reactions: Previous Problems w/ Anesthesia Additional Past Anesthesia/Blood Transfusion Reaction / Comm: hard to wake up Date of Last Stent Placement:: 10/22/18 Smoking Status: Never smoker - Past Family History Mother Family Medical History: Myocardial Infarction (ND) Additional Family Medical History / Comment(s): MOTHER OF A ND AT THE AGE OF 57YRS. Brother(s) Family Medical History: Myocardial Infarction (ND) Additional Family Medical History / Comment(s): BROTHER OF A ND AT THE AGE OF 60YRS. Father Family Medical History: No Reported History Additional Family Medical History / Comment(s): FATHER LIVED TO BE 90YRS OLD. Medications and Allergies Home Medications Medication Instructions Recorded Confirmed Type Aspirin 81 mg PO HS 01/21/14 11/08/18 History Clopidogrel [Plavix] 75 mg PO DAILY 01/21/14 11/08/18 History Metoprolol Tartrate [Lopressor] 50 mg PO BID 01/21/14 11/08/18 History Cholecalciferol [Vitamin D3] 1,000 unit PO DAILY 05/03/16 11/08/18 History Vits A,C,E/Lutein/Minerals 2 tab PO DAILY 05/03/16 11/08/18 History [Ocuvite with Lutein Tablet] Levothyroxine Sodium [Synthroid] 88 mcg PO DAILY 05/31/17 11/08/18 History ALPRAZolam [Xanax] 0.25 mg PO DAILY PRN #30 06/05/17 11/08/18 Rx Glimepiride [Amaryl] 1 mg PO [id number] 04/28/18 11/08/18 History metFORMIN HCL [Glucophage] 500 mg PO BID 04/28/18 11/08/18 History Acetaminophen Tab [Tylenol] 500 mg PO Q6HR PRN tab 05/01/18 11/08/18 Rx Acetaminophen with Codeine 1 tab PO Q6H PRN 09/25/18 11/08/18 History [Tylenol w/codeine #3] Furosemide [Lasix] 20 mg PO DAILY 09/25/18 11/08/18 History Hydrochlorothiazide 12.5 mg PO DAILY 09/25/18 11/08/18 History Atorvastatin [Lipitor] 80 mg PO HS 10/18/18 11/08/18 History Losartan [Cozaar] 100 mg PO DAILY #30 tab 10/21/18 11/08/18 Rx Nitroglycerin Sl Tabs [Nitrostat] 0.4 mg SUBLINGUAL Q5M PRN #25 tab 10/21/18 11/08/18 Rx amLODIPine [Norvasc] 5 mg PO BID #60 tab 10/21/18 11/08/18 Rx Allergies Allergy/AdvReac Type Severity Reaction Status Date / Time PAPER TAPE Allergy Rash/Hives Uncoded 11/08/18 09:36 Surgical - Exam Osteopathic Statement: *. No significant issues noted on an osteopathic structural exam other than those noted in the History and Physical/Consult. Vital Signs Temp Pulse Resp BP Pulse Ox 97.5 F L 75 16 135/76 98 11/08/18 09:34 11/08/18 09:34 11/08/18 09:34 11/08/18 09:34 11/08/18 09:34 - General well developed, well nourished, no distress - Eyes PERRL, normal ocular movement - ENT Head is normocephalic the face is symmetric there's no abnormal movements. There is no tenderness to the sinuses are mastoids. Left facial swelling is noted. Nose is patent. Mouth and throat patient has a left second molar with severe gum retraction and erosion. Tenderness of the dental root on the left upper tooth is noticeable. normal pinna, normal nares, normal mucosa, no congestion, decreased hearing, nasal discharge - Respiratory normal expansion, clear to percussion - Integumentary no rash, no growths, no abnormal pigmentation - Neurologic normal coordination, normal sensation, no combative - Psychiatric oriented to time, oriented to person, oriented to place, speech is normal, memory intact Results - Labs 11/09/18 05:48 11/09/18 05:48 Abnormal Lab Results - Last 24 Hours (Table) 11/08/18 11/08/18 11/09/18 Range/Units 16:41 20:55 05:48 RBC 3.58 L (3.80-5.40) m/uL Hgb 11.1 L (11.4-16.0) gm/dL Hct 31.0 L (34.0-46.0) % Lymphocytes # 0.6 L (1.0-4.8) k/uL Sodium (137-145) mmol/L Chloride (98-107) mmol/L BUN (7-17) mg/dL Glucose (74-99) mg/dL POC Glucose (mg/dL) 256 H 249 H (75-99) mg/dL Total Protein (6.3-8.2) g/dL 11/09/18 11/09/18 11/09/18 Range/Units 05:48 05:53 11:35 RBC (3.80-5.40) m/uL Hgb (11.4-16.0) gm/dL Hct (34.0-46.0) % Lymphocytes # (1.0-4.8) k/uL Sodium 119 L* (137-145) mmol/L Chloride 80 L (98-107) mmol/L BUN 20 H (7-17) mg/dL Glucose 147 H (74-99) mg/dL POC Glucose (mg/dL) 170 H 193 H (75-99) mg/dL Total Protein 6.2 L (6.3-8.2) g/dL Diabetes panel 11/09/18 Range/Units 05:48 Sodium 119 L* (137-145) mmol/L Potassium 4.1 (3.5-5.1) mmol/L Chloride 80 L (98-107) mmol/L Carbon Dioxide 27 (22-30) mmol/L BUN 20 H (7-17) mg/dL Creatinine 0.78 (0.52-1.04) mg/dL Glucose 147 H (74-99) mg/dL Calcium 8.6 (8.4-10.2) mg/dL AST 23 (14-36) U/L ALT 30 (9-52) U/L Alkaline Phosphatase 99 (38-126) U/L Total Protein 6.2 L (6.3-8.2) g/dL Albumin 3.8 (3.5-5.0) g/dL Calcium panel 11/09/18 Range/Units 05:48 Calcium 8.6 (8.4-10.2) mg/dL Albumin 3.8 (3.5-5.0) g/dL Pituitary panel 11/09/18 Range/Units 05:48 Sodium 119 L* (137-145) mmol/L Potassium 4.1 (3.5-5.1) mmol/L Chloride 80 L (98-107) mmol/L Carbon Dioxide 27 (22-30) mmol/L BUN 20 H (7-17) mg/dL Creatinine 0.78 (0.52-1.04) mg/dL Glucose 147 H (74-99) mg/dL Calcium 8.6 (8.4-10.2) mg/dL Adrenal panel 11/09/18 Range/Units 05:48 Sodium 119 L* (137-145) mmol/L Potassium 4.1 (3.5-5.1) mmol/L Chloride 80 L (98-107) mmol/L Carbon Dioxide 27 (22-30) mmol/L BUN 20 H (7-17) mg/dL Creatinine 0.78 (0.52-1.04) mg/dL Glucose 147 H (74-99) mg/dL Calcium 8.6 (8.4-10.2) mg/dL Total Bilirubin 0.6 (0.2-1.3) mg/dL AST 23 (14-36) U/L ALT 30 (9-52) U/L Alkaline Phosphatase 99 (38-126) U/L Total Protein 6.2 L (6.3-8.2) g/dL Albumin 3.8 (3.5-5.0) g/dL Assessment and Plan (1) Facial cellulitis Current Visit: Yes Status: Acute Code(s): L03.211 - CELLULITIS OF FACE SNOMED Code(s): 000672265 (2) Maxillary sinus cyst Current Visit: Yes Status: Acute Code(s): J34.1 - CYST AND MUCOCELE OF NOSE AND NASAL SINUS SNOMED Code(s): 361742348 (3) Chronic sinusitis Current Visit: Yes Status: Acute Code(s): J32.9 - CHRONIC SINUSITIS, UNSPECIFIED SNOMED Code(s): 29942636 (4) Post-nasal drainage Current Visit: Yes Status: Acute Code(s): R09.82 - POSTNASAL DRIP SNOMED Code(s): 01405938 Plan: This left facial cellulitis appears to be from a odontogenic etiology. She has a second molar on the left upper ridge I believe it's #17 that has some adjacent gingival tenderness to palpation. Suspect an odontogenic etiology as a cause of this patient's left facial cellulitis. Current antibiotic therapy is excellent and I recommended an oral surgery consultation for consideration of extraction. I will see the patient back in the office as needed. The patient is a patient of Dr. Yi and a follow-up is recommended with Dr. Yi. Time with Patient: Greater than 30
[2018-11-09] MEDS: amLODIPine 5 MG TAB PO SCH ×2 (15:48→21:30)
[2018-11-09 16:23] LABS: Glucose,Whole Blood 275 mg/dL (75-99)
[2018-11-09] MEDS ORDERED: NITROGLYCERIN SL TABS 0.4 MG TAB SUBLINGUAL PRN (17:01)
--- NOTE | 2018-11-09 17:20 | P.PN ---
Subjective Progress Note Date: 11/09/18 Interval history: This is an 83-year-old female admitted with left facial edema, pain, questionable left upper fractured molar, possible sinusitis, hyponatremia. Maintained on IV fluids, fluid restriction, sodium minimally improved, 119. Complains of prior sinus drainage bilateral nostrils, burning. Continues on IV antibiotics. Facial edema, pain significantly improved. Reports pain with molar on upper left ridge. ENT, oral surgery consults in place, recommendations pending. Maintaining O2 sats of mid to high 90s on room air. Afebrile, normal WBC. Hyperglycemic. Objective - Vital Signs Vital signs: Vital Signs Temp 97.9 F 11/09/18 15:47 Pulse 78 11/09/18 15:47 Resp 20 11/09/18 16:00 BP 131/59 11/09/18 15:47 Pulse Ox 95 11/09/18 15:47 Intake & Output 11/08/18 11/09/18 11/09/18 18:59 06:59 18:59 Intake Total 240 1170 Output Total 300 650 Balance -60 520 Weight 73.028 kg 73.1 kg Intake: IV 450 Ampicillin-Sulbactam 1.5 50 gm In Sodium Chloride 0.9 % 50 ml @ 100 mls/hr IVPB Q6HR ANDREW Rx#:[id number] Sodium Chloride 0.9% 1, 400 000 ml @ 50 mls/hr IV . Q20H ANDREW Rx#:[id number] Oral 240 720 Output: Urine 300 650 Other: Voiding Method Toilet Toilet # Voids 1 1 - Exam PHYSICAL EXAM: VITAL SIGNS: As above GENERAL: Sitting up in bed, no acute distress HEENT: Conjunctivae normal. Left eye blindness .Oral mucosa moist. Improving Left-sided facial swelling/tenderness NECK: No JVD. No thyroid enlargement. No LNs CARDIOVASCULAR: S1, S2 muffled. No murmur RESPIRATION: Breath sounds diminished in the bases. No rhonchi or crackles. No bronchial breathing. ABDOMEN: Soft, nontender . No guarding. no masses palpable. Bowel sounds heard. LEGS: No edema. no swelling PSYCHIATRY: Alert and oriented -3, mood and affect normal. NERVOUS SYSTEM: Cranial N 2-12 grossly normal. Moves all 4 limbs. Diffuse weakness No focal deficits. Skin: no ulcer Lymphatic system. No LN neck axilla or groin. - Labs CBC & Chem 7: 11/09/18 05:48 11/09/18 05:48 Labs: Abnormal Lab Results - Last 24 Hours (Table) 11/08/18 11/09/18 11/09/18 Range/Units 20:55 05:48 05:48 RBC 3.58 L (3.80-5.40) m/uL Hgb 11.1 L (11.4-16.0) gm/dL Hct 31.0 L (34.0-46.0) % Lymphocytes # 0.6 L (1.0-4.8) k/uL Sodium 119 L* (137-145) mmol/L Chloride 80 L (98-107) mmol/L BUN 20 H (7-17) mg/dL Glucose 147 H (74-99) mg/dL POC Glucose (mg/dL) 249 H (75-99) mg/dL Total Protein 6.2 L (6.3-8.2) g/dL 11/09/18 11/09/18 11/09/18 Range/Units 05:53 11:35 16:21 RBC (3.80-5.40) m/uL Hgb (11.4-16.0) gm/dL Hct (34.0-46.0) % Lymphocytes # (1.0-4.8) k/uL Sodium (137-145) mmol/L Chloride (98-107) mmol/L BUN (7-17) mg/dL Glucose (74-99) mg/dL POC Glucose (mg/dL) 170 H 193 H 275 H (75-99) mg/dL Total Protein (6.3-8.2) g/dL Assessment and Plan Assessment: -Chronic sinusitis with maxillary sinus cyst -left sided facial cellulitis possibly related to the above, possibly r/t left upper molar -Hyponatremia, possibly diuretic induced -CAD, history of NM -Diabetes mellitus, hyperglycemia secondary to infection, steroids. -CVA/TIA -Left eye blindness -Gastroesophageal reflux disease Plan: Continue on current medication regime ,monitoring and symptomatic treatment. Maintain Fluid restrictions, IV antibiotics. Nephrology consulted secondary to hyponatremia. ENT and oral surgery consult in place, recommendations pending. Close monitoring of electrolytes, white count with labs ordered for a.m. prognosis guarded given multiple complex medical issues. The impression and plan of care has been dictated as directed. : I performed a history and examination of this patient, discussed the same with the dictator. I agree with the dictator's note ,documented as a scribe. Any additional findings or plans will be noted.
[2018-11-09] MEDS: INSULIN ASPART (NovoLOG) 100 UNIT/ML VIAL SQ SCH ×2 (17:28→21:31)
[2018-11-09] MEDS ORDERED: SENNOSIDES-DOCUSATE SODIUM 1 EACH TAB PO SCH (21:00)
[2018-11-09 21:23] LABS: Glucose,Whole Blood 190 mg/dL (75-99)
[2018-11-09] MEDS: SENNOSIDES-DOCUSATE SODIUM 1 EACH TAB PO SCH (21:23)
[2018-11-09] MEDS: INSULIN DETEMIR (LEVEMIR) 100 UNIT/ML SYR SQ SCH (21:30)
[2018-11-09] MEDS: DOCUSATE 100 MG CAP PO SCH (21:31)
[2018-11-09] MEDS: ASPIRIN 81 MG PO SCH (21:31)
[2018-11-09] MEDS: ATORVASTATIN 80 MG TAB PO SCH (21:31)
[2018-11-09] MEDS: ALPRAZolam 0.25 MG TAB PO PRN (23:03)
[2018-11-10 06:01] LABS: Glucose,Whole Blood 121 mg/dL (75-99)
[2018-11-10] MEDS: INSULIN ASPART (NovoLOG) 100 UNIT/ML VIAL SQ SCH ×4 (06:02→21:33)
[2018-11-10] MEDS: AMPICILLIN-SULBACTAM 1.5 GM in SODIUM CHLORIDE 0.9% 50 ML IVPB SCH ×4 (06:56→23:04)
[2018-11-10] MEDS: GLIMEPIRIDE 1 MG TAB PO SCH (06:56)
[2018-11-10] MEDS: metFORMIN 500 MG TAB PO SCH ×2 (06:56→17:01)
[2018-11-10] MEDS: LEVOTHYROXINE 88 MCG TAB PO SCH (06:56)
[2018-11-10 07:28] LABS: Basophils % (A) 0 %; Eosinophils # (A) 0.1 k/uL (0-0.7); Eosinophils % (A) 0 %; HGB 10.6 gm/dL (11.4-16.0); Lymphocytes # (A) 1.5 k/uL (1.0-4.8); Lymphocytes % (A) 13 %; MCH 30.1 pg (25.0-35.0); MCHC 34.3 g/dL (31.0-37.0); MCV 87.7 fL (80.0-100.0); Monocytes # (A) 0.8 k/uL (0-1.0); Monocytes % (A) 7 %; Neutrophils # (A) 9.2 k/uL (1.3-7.7); Neutrophils % (A) 79 %; Platelet Count 340 k/uL (150-450); RBC 3.54 m/uL (3.80-5.40); RDW 13.2 % (11.5-15.5); WBC 11.6 k/uL (3.8-10.6)
[2018-11-10 07:44] LABS: Calcium 8.5 mg/dL (8.4-10.2); Potassium 3.9 mmol/L (3.5-5.1)
[2018-11-10] MEDS: METOPROLOL TARTRATE 50 MG TAB PO SCH ×2 (08:18→20:37)
[2018-11-10] MEDS: LOSARTAN 50 MG TAB PO SCH (08:18)
[2018-11-10] MEDS: amLODIPine 5 MG TAB PO SCH (08:18)
[2018-11-10] MEDS: VIT A,C & E-LUTEIN-MINERALS 1 EACH TAB PO SCH (08:18)
[2018-11-10] MEDS: CLOPIDOGREL 75 MG TAB PO SCH (08:19)
[2018-11-10] MEDS: CHOLECALCIFEROL 1,000 UNIT TAB PO SCH (08:19)
[2018-11-10] MEDS: predniSONE 20 MG TAB PO SCH (08:19)
[2018-11-10] MEDS: DOCUSATE 100 MG CAP PO SCH ×2 (08:22→20:37)
[2018-11-10 11:36] LABS: Glucose,Whole Blood 119 mg/dL (75-99)
--- NOTE | 2018-11-10 12:08 | CONS ---
CONSULTATION DATE OF CONSULT: 11/10/2018 CHIEF COMPLAINT: "My face was swollen." HISTORY OF PRESENT ILLNESS: The patient is an 83-year-old female who presented to the emergency room complaining of pain and swelling to the left side of the face. She was evaluated and a CT scan revealed chronic sinusitis. The patient stated that she had intermittent pain to a left posterior upper molar. The patient was admitted and started on IV Unasyn and she has improved dramatically. Patient is currently in minimal discomfort. PAST MEDICAL HISTORY: Significant for coronary artery disease, CVA/TIA, hypertension, diabetes mellitus, history of an NC, deafness, GERD, osteoarthritis, and hypothyroidism. PAST SURGICAL HISTORY: Significant for back surgery, breast surgery, a heart catheterization with stent placement, hysterectomy, tubal ligation, and orthopedic surgery. PAST SOCIAL HISTORY: Unremarkable. She denies smoking, drinking, or drug abuse. FAMILY HISTORY: Significant for her cardiovascular disease. MEDICATIONS: Currently are aspirin, Plavix, Lopressor, Synthroid, Xanax, Amaryl, Glucophage, Tylenol, Tylenol with codeine, Lasix, Lipitor, Cozaar, Nitrostat, and Norvasc. ALLERGIES: Include PAPER TAPE. PHYSICAL EXAMINATION: Reveals the patient to be alert and oriented x3. Resting comfortably, in no apparent distress. Her vital signs are stable and she is afebrile. She is tolerating a soft diet. Her white count today was 11.6. Head and neck examination reveals minimal left facial swelling over the buccal region with minimal infraorbital swelling. The area is soft and nontender. Intraoral examination reveals tooth #14 to be mildly tender to palpation. Buccal exostoses are present and tender to palpation. There is no vestibular swelling. The root is exposed and tender to the touch. This tooth is unopposed and not in function. The remainder of the intraoral examination is normal. Her neck exam is negative. There is no swelling. No thyromegaly. ASSESSMENT: Left facial swelling, possibly due to an odontogenic source or from a sinus origin. PLAN: Patient is to continue the IV antibiotics and when she is discharged, she can follow up immediately with my office for the extraction of tooth #14 with a local anesthetic. MMODL / IJN: [id number] /
[2018-11-10 14:18] LABS: Hemoglobin A1C 6.6 % (4.0-6.0)
--- NOTE | 2018-11-10 14:29 | PN ---
PROGRESS NOTE DATE OF SERVICE: 11/10/2018 This is an 83-year-old woman who was admitted with left facial cellulitis, possibly from odontogenic focus, also had severe hyponatremia. The patient is improving significantly at this time. The patient was also seen by Dr. Baldwin today and recommended outpatient followup with extraction of the tooth #14 with local anesthetic. Otherwise, the patient is being closely monitored. Sodium is currently at 124. PAST MEDICAL HISTORY: Reviewed. REVIEW OF SYSTEMS: CARDIOVASCULAR: No angina. HEENT: As mentioned earlier. RESPIRATION: No cough. GI; No nausea. : No dysuria. NERVOUS SYSTEM: No numbness or weakness. CURRENT MEDICATIONS: Reviewed and include: 1. Tylenol p.r.n. 2. Tylenol No. 3. 3. Xanax 0.5 daily. 4. Norvasc 2.5 mg b.i.d. 5. Unasyn 1.5 q.6. 6. Aspirin 81 mg. 7. Lipitor 80 mg. 8. Vitamin D3. 9. Plavix 75 mg. 10.Benadryl 25 mg. 11.Colace 100 mg b.i.d. 12.Amaryl 1 mg. 13.Levemir. 14.Synthroid. 15.Cozaar. 16.Glucophage. 17.Lopressor. 18.I-Ronda. 19.Narcan. 20.Nitrostat. 21.Prednisone. 22.Senokot. PHYSICAL EXAM: Patient is alert, oriented x3. Pulse is 66, blood pressure 115/56, respirations 20, temperature 98.2, pulse ox 97% on room air. HEENT: Conjunctivae normal. NECK: No jugular venous distension. Left facial minutes swelling present. CARDIOVASCULAR SYSTEM: S1, S2, no murmur. No S3, no S4. RESPIRATORY: Breath sounds diminished at the bases. A few scattered rhonchi. ABDOMEN: Soft, nontender. NERVOUS SYSTEM: No focal deficits. LABS: WBC is 11.6, hemoglobin is 10.6, sodium 134. ASSESSMENT: 1. Acute left facial cellulitis with possible early sepsis present on admission, possibly secondary to left upper molar odontogenic foci. 2. Chronic sinus with maxillary sinus cyst. 3. Hyponatremia, possibly diuretic-induced, rule out SIADH. 4. Coronary artery disease, history of myocardial infarction. 5. Diabetes mellitus type 2 with hyperglycemia secondary to infection and steroids. 6. History of cerebrovascular accident, transient ischemic attack. 7. Left eye blindness. 8. Gastroesophageal reflux disease. RECOMMENDATION: Recommend to continue current medications, continue with the monitoring and symptomatic treatment. Otherwise, at this time I recommend to continue the antibiotics. Monitor blood sugars closely. Otherwise, I would also recommend to monitor the sodium closely and hold diuretics for now. Guarded prognosis because of multiple complex medical issues. Further recommendations to follow. MMODL / IJN: [id number] /
[2018-11-10] MEDS: SODIUM CHLORIDE 0.9% 1,000 ML IV SCH (14:42)
[2018-11-10 17:16] LABS: Glucose,Whole Blood 261 mg/dL (75-99)
--- NOTE | 2018-11-10 17:44 | CONS ---
CONSULTATION REASON FOR CONSULT: Hyponatremia. HISTORY OF PRESENT ILLNESS: Patient is an 83-year-old female who was admitted to the hospital with complaints of weakness and she also had significant pain and swelling to the left side of the face. CT was negative for any underlying fractures or significant infection or abscess formation. Patient has been evaluated by ENT and plan is to maintain her on antibiotics. There is a concern for possible odontogenic source versus sinusitis. Patient was apparently hospitalized recently and was just discharged on 10/02/2018. On her last admission, she had come in with chest pain. She did have cardiac catheterization and a coronary stent placed. Review of labs show serum sodium on her last admission, mostly in the 130s. She did dip down to 126 on 10/18, but was up to 133 the next day. Patient denies any nausea, vomiting, diarrhea. At home, she was maintained on hydrochlorothiazide. Serum sodium was 118 mEq/L on initial admission and it is up to 124 today. Patient has not been maintained on any IV fluids. She did get IV fluids at 50 mL an hour for a short time on initial admission. PAST MEDICAL HISTORY: History of CVA, coronary artery disease. Recent coronary artery stenting and cardiac catheterization, type 2 diabetes, deafness, hyperlipidemia, hypertension, history of AR, hypothyroidism, macular degeneration, hiatal hernia, chronic constipation. PAST SURGICAL HISTORY: Back surgery, right rotator cuff surgery, thyroidectomy due to nodules, cataract surgery, left breast lumpectomy which was benign, cervical lumbar injections, temporal artery biopsy. SOCIAL HISTORY: Negative for smoking, drug abuse or alcohol abuse. MEDICATIONS: At home prior to admission include Plavix, Lopressor, vitamin D3, Synthroid, Xanax, Amaryl, Glucophage, Lasix, hydrochlorothiazide, Lipitor. Cozaar, Norvasc. ALLERGIES: Include PAPER TAPE. REVIEW OF SYSTEMS: As per HPI. Other systems negative. PHYSICAL EXAMINATION: Patient is comfortable, awake, alert, oriented x3. She is not in any acute distress. Blood pressure was 115/56, heart rate 66 per minute. She is afebrile. Examination of the heart, S1, S2. Examination of the lungs, bilateral breath sounds are heard. Abdomen is soft, nontender. Examination of the lower extremities shows no significant edema. BIOMETRIC TECHNICIAN exam is grossly intact. LABS: Show sodium of 124, potassium 3.9, BUN 24, serum creatinine 0.73. ASSESSMENT: 1. Hyponatremia, possibly hypovolemic. Patient's blood pressure is also on the lower side and she was maintained on hydrochlorothiazide at home. I will hold off on all thiazide diuretics for now. I will start the patient on normal saline as a challenge. Will repeat sodium this evening. If the serum sodium, gets worse, then we may be dealing with SIADH. At the same time, urine osmolality and urine sodium will be sent out as well. 2. Coronary artery disease, status post recent cardiac catheterization and coronary stent placement. 3. Hypertension. Blood pressure is actually low. Decrease Norvasc to once a day. Continue with the Cozaar. 4. Facial cellulitis, improved. PLAN: Start saline at 50 mL an hour, repeat sodium this evening, decrease Norvasc to once a day. Continue with Cozaar. Check random urine sodium and urine osmolality. Check cortisol level as well. Thank you for this consultation. Will continue to follow the patient with you during her hospitalization. MMODL / JULIANN: [id number] / TOMI
[2018-11-10] MEDS: ASPIRIN 81 MG PO SCH (20:37)
[2018-11-10] MEDS: SENNOSIDES-DOCUSATE SODIUM 1 EACH TAB PO SCH (20:37)
[2018-11-10] MEDS: ATORVASTATIN 80 MG TAB PO SCH (20:37)
[2018-11-10 21:31] LABS: Glucose,Whole Blood 182 mg/dL (75-99)
[2018-11-10] MEDS: INSULIN DETEMIR (LEVEMIR) 100 UNIT/ML SYR SQ SCH (21:34)
[2018-11-10] MEDS: ALPRAZolam 0.25 MG TAB PO PRN (23:04)
[2018-11-11 06:30] LABS: Glucose,Whole Blood 79 mg/dL (75-99)
[2018-11-11] MEDS: INSULIN ASPART (NovoLOG) 100 UNIT/ML VIAL SQ SCH ×4 (06:41→21:11)
[2018-11-11] MEDS: AMPICILLIN-SULBACTAM 1.5 GM in SODIUM CHLORIDE 0.9% 50 ML IVPB SCH ×4 (06:46→23:52)
[2018-11-11] MEDS: LEVOTHYROXINE 88 MCG TAB PO SCH (06:47)
[2018-11-11 06:48] LABS: Basophils % (A) 0 %; Eosinophils # (A) 0.1 k/uL (0-0.7); Eosinophils % (A) 1 %; HCT 31.1 % (34.0-46.0); HGB 10.4 gm/dL (11.4-16.0); Lymphocytes # (A) 2.5 k/uL (1.0-4.8); Lymphocytes % (A) 23 %; MCH 29.8 pg (25.0-35.0); MCHC 33.4 g/dL (31.0-37.0); MCV 89.1 fL (80.0-100.0); Mean Platelet Volume 7.4; Monocytes # (A) 0.9 k/uL (0-1.0); Monocytes % (A) 8 %; Neutrophils # (A) 6.9 k/uL (1.3-7.7); Neutrophils % (A) 65 %; Platelet Count 318 k/uL (150-450); RBC 3.49 m/uL (3.80-5.40); RDW 13.6 % (11.5-15.5); WBC 10.5 k/uL (3.8-10.6)
[2018-11-11] MEDS: GLIMEPIRIDE 1 MG TAB PO SCH (06:53)
[2018-11-11] MEDS: metFORMIN 500 MG TAB PO SCH ×2 (06:53→17:47)
[2018-11-11 07:01] LABS: Calcium 8.1 mg/dL (8.4-10.2)
[2018-11-11] MEDS: CLOPIDOGREL 75 MG TAB PO SCH (08:35)
[2018-11-11] MEDS: CHOLECALCIFEROL 1,000 UNIT TAB PO SCH (08:35)
[2018-11-11] MEDS: VIT A,C & E-LUTEIN-MINERALS 1 EACH TAB PO SCH (08:36)
[2018-11-11] MEDS: amLODIPine 5 MG TAB PO SCH (08:36)
[2018-11-11] MEDS: DOCUSATE 100 MG CAP PO SCH ×2 (08:36→20:40)
[2018-11-11] MEDS: METOPROLOL TARTRATE 50 MG TAB PO SCH ×2 (08:36→20:40)
[2018-11-11] MEDS: LOSARTAN 50 MG TAB PO SCH (08:37)
[2018-11-11 11:36] LABS: Glucose,Whole Blood 67 mg/dL (75-99)
[2018-11-11 11:52] LABS: Glucose,Whole Blood 73 mg/dL (75-99)
--- NOTE | 2018-11-11 13:39 | PN ---
PROGRESS NOTE I am covering for Dr. Anthony Cameron. DATE OF SERVICE: 11/11/2018 This 83-year-old woman was admitted with facial cellulitis on the left side possibly odontogenic focus also had hyponatremia. The patient is being closely monitored. The patient was also seen by ENT. Hyponatremia was thought to be hypovolemic. Nephrology is also being consulted. The hydrochlorothiazide has been held at this time. No chest pain. No palpitations. No fever. EXAM: Alert and oriented x3. Pulse is 64, blood pressure 130/60, respiration 20, temperature 97.8, pulse ox 98% on room air. HEENT: Conjunctivae normal. NECK: No jugular venous distention. CARDIOVASCULAR: S1, S2 muffled. RESPIRATORY: Breath sounds diminished in the bases. No rhonchi, no crackles. ABDOMEN: Soft. NERVOUS SYSTEM: No focal deficits. EXAMINATION OF FACE: Minimal left swelling and puffiness present left side. LAB STUDIES: WBC 10.5, sodium 128. Glucose noted. ASSESSMENT: 1. Acute left facial cellulitis with possible early sepsis present on admission, possibly 2nd left odontogenic foci. 2. Chronic sinusitis with maxillary sinus cyst. 3. Hyponatremia, possibly diuretic-induced hypovolemic. 4. Coronary artery disease, history of myocardial ischemia. 5. Diabetes mellitus type 2 with hypoglycemia. 6. History of cerebrovascular accident, transient ischemic attack. 7. Left eye blindness. 8. Gastroesophageal reflux disease. RECOMMENDATIONS AND DISCUSSION: I recommend to continue current management and treatment at this time. Continue with the antibiotics. Continue the rest of medications. Hold antidiabetic medication. Monitor blood pressure closely. Sodium has improved from 190 to 128. Nephrology evaluation appreciated. Continue to monitor. Further recommendations to follow. MMODL / IJN: [id number] /
--- NOTE | 2018-11-11 14:33 | PN ---
PROGRESS NOTE The patient is seen for followup for hyponatremia which appears to be hypovolemic and currently improving with normal saline. Random urine sodium was less than 10. Patient was on thiazide diuretics prior to admission which is currently on hold. On examination, patient is currently improved. She states she is feeling better. She was admitted with left facial cellulitis on initial admission. EXAMINATION: Today, the patient is awake, comfortable, not in any acute distress. She is alert and oriented x3. Blood pressure is 131/60, heart rate 64 per minute. Patient is afebrile. Examination of the heart: S1, S2. Examination of the lungs: Bilateral breath sounds are heard. Abdomen is soft, nontender. Exam of lower extremities shows no significant edema. COM[employer] exam is grossly intact. LABS: Show sodium 128, potassium 4.0, BUN 21, serum creatinine 0.8, hemoglobin 10.4 g/dL. ASSESSMENT: 1. Acute hypovolemic hyponatremia, currently improving with normal saline. Continue to hold off on thiazide diuretics as well. Patient is encouraged to increase her oral protein intake as well. Blood pressure was on the lower side currently slightly improved. 2. Left facial cellulitis, currently improved. 3. Coronary artery disease with previous history of myocardial infarction, recent coronary artery stenting. 4. Type 2 diabetes. 5. 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 PLAN: Continue with normal saline. Encourage increased oral protein intake. Repeat labs in a.m. MMCHAPINCITO / CHULA: [id number] /
[2018-11-11 16:53] LABS: Glucose,Whole Blood 96 mg/dL (75-99)
[2018-11-11] MEDS: SENNOSIDES-DOCUSATE SODIUM 1 EACH TAB PO SCH (20:39)
[2018-11-11] MEDS: ASPIRIN 81 MG PO SCH (20:39)
[2018-11-11] MEDS: ATORVASTATIN 80 MG TAB PO SCH (20:40)
[2018-11-11] MEDS: SODIUM CHLORIDE 0.9% 1,000 ML IV SCH ×2 (20:41→23:52)
[2018-11-11 21:09] LABS: Glucose,Whole Blood 137 mg/dL (75-99)
[2018-11-11] MEDS: INSULIN DETEMIR (LEVEMIR) 100 UNIT/ML SYR SQ SCH (21:11)
[2018-11-11] MEDS: ALPRAZolam 0.25 MG TAB PO PRN (23:52)
[2018-11-12 06:16] LABS: Glucose,Whole Blood 67 mg/dL (75-99)
[2018-11-12] MEDS: AMPICILLIN-SULBACTAM 1.5 GM in SODIUM CHLORIDE 0.9% 50 ML IVPB SCH (06:16)
[2018-11-12] MEDS: INSULIN ASPART (NovoLOG) 100 UNIT/ML VIAL SQ SCH ×2 (06:16→11:35)
[2018-11-12 06:21] LABS: Basophils # (A) 0.1 k/uL (0-0.2); Basophils % (A) 1 %; Eosinophils # (A) 0.2 k/uL (0-0.7); Eosinophils % (A) 3 %; HGB 10.8 gm/dL (11.4-16.0); Lymphocytes # (A) 2.6 k/uL (1.0-4.8); Lymphocytes % (A) 27 %; MCH 29.4 pg (25.0-35.0); MCHC 32.9 g/dL (31.0-37.0); MCV 89.2 fL (80.0-100.0); Mean Platelet Volume 7.8; Monocytes % (A) 10 %; Neutrophils # (A) 5.4 k/uL (1.3-7.7); Neutrophils % (A) 57 %; Platelet Count 323 k/uL (150-450); RDW 13.8 % (11.5-15.5); WBC 9.6 k/uL (3.8-10.6)
[2018-11-12] MEDS: LEVOTHYROXINE 88 MCG TAB PO SCH (06:22)
[2018-11-12 06:31] LABS: Anion Gap 7 mmol/L; Blood Urea Nitrogen 17 mg/dL (7-17); Carbon Dioxide 28 mmol/L (22-30); Chloride 97 mmol/L (98-107); Glucose 52 mg/dL (74-99); Potassium 4.1 mmol/L (3.5-5.1); Sodium 132 mmol/L (137-145)
[2018-11-12 06:40] LABS: Glucose,Whole Blood 71 mg/dL (75-99)
[2018-11-12] MEDS: DOCUSATE 100 MG CAP PO SCH (08:03)
[2018-11-12] MEDS: CHOLECALCIFEROL 1,000 UNIT TAB PO SCH (08:03)
[2018-11-12] MEDS: metFORMIN 500 MG TAB PO SCH (08:03)
[2018-11-12] MEDS: VIT A,C & E-LUTEIN-MINERALS 1 EACH TAB PO SCH (08:04)
[2018-11-12] MEDS: CLOPIDOGREL 75 MG TAB PO SCH (08:04)
[2018-11-12] MEDS: amLODIPine 5 MG TAB PO SCH (08:04)
[2018-11-12] MEDS: METOPROLOL TARTRATE 50 MG TAB PO SCH (08:04)
[2018-11-12] MEDS: LOSARTAN 50 MG TAB PO SCH (08:04)
[2018-11-12] MEDS: GLIMEPIRIDE 1 MG TAB PO SCH (08:04)
--- NOTE | 2018-11-12 09:24 | P.PN ---
Subjective Patient is seen in follow-up for hyponatremia which was hypovolemic. Sodium level has been improving with IV hydration and is up to 132 this morning. Oral intake is good. She has good urine output. No vomiting or diarrhea. Vital signs are stable. General: The patient appeared well nourished and normally developed. HEENT: Head exam is unremarkable. Neck is without jugular venous distension. LUNGS: Lungs are clear to auscultation and percussion. Breath sounds decreased. HEART: Rate and Rhythm are regular. First and second heart sounds normal. No murmurs, rubs or gallops. ABDOMEN: Abdominal exam reveals normal bowel sounds. Non-tender and non- distended. No evidence of peritonitis. EXTREMITITES: No clubbing, cyanosis, or edema. Objective - Vital Signs Vital signs: Vital Signs Temp 97.6 F 11/12/18 00:00 Pulse 61 11/12/18 04:00 Resp 18 11/12/18 04:00 BP 124/55 11/12/18 04:00 Pulse Ox 92 L 11/12/18 04:00 Intake & Output 11/11/18 11/12/18 11/12/18 18:59 06:59 18:59 Intake Total 1350 240 Output Total 1550 Balance -200 240 Weight 74.5 kg Intake: Intake, IV Titration 450 Amount Ampicillin-Sulbactam 1.5 50 gm In Sodium Chloride 0.9 % 50 ml @ 100 mls/hr IVPB Q6HR ANDREW Rx#:[id number] Sodium Chloride 0.9% 1, 400 000 ml @ 50 mls/hr IV . Q20H ANDREW Rx#:[id number] Oral 900 240 Output: Urine 1550 Other: Voiding Method Toilet # Voids 1 - Labs CBC & Chem 7: 11/12/18 05:34 11/12/18 05:34 Labs: Abnormal Lab Results - Last 24 Hours (Table) 11/11/18 11/11/18 11/11/18 Range/Units 11:33 11:49 21:08 RBC (3.80-5.40) m/uL Hgb (11.4-16.0) gm/dL Hct (34.0-46.0) % Sodium (137-145) mmol/L Chloride (98-107) mmol/L Glucose (74-99) mg/dL POC Glucose (mg/dL) 67 L 73 L 137 H (75-99) mg/dL Calcium (8.4-10.2) mg/dL 11/12/18 11/12/18 11/12/18 Range/Units 05:34 05:34 06:15 RBC 3.70 L (3.80-5.40) m/uL Hgb 10.8 L (11.4-16.0) gm/dL Hct 33.0 L (34.0-46.0) % Sodium 132 L (137-145) mmol/L Chloride 97 L (98-107) mmol/L Glucose 52 L (74-99) mg/dL POC Glucose (mg/dL) 67 L (75-99) mg/dL Calcium 8.0 L (8.4-10.2) mg/dL 11/12/18 Range/Units 06:38 RBC (3.80-5.40) m/uL Hgb (11.4-16.0) gm/dL Hct (34.0-46.0) % Sodium (137-145) mmol/L Chloride (98-107) mmol/L Glucose (74-99) mg/dL POC Glucose (mg/dL) 71 L (75-99) mg/dL Calcium (8.4-10.2) mg/dL Assessment and Plan Plan: Assessment: 1. Hypovolemic hyponatremia improving with IV hydration. Sodium level 132 this morning. 2. Benign hypertension. Controlled. 3. Insulin-dependent diabetes mellitus. Plan: Maintain normal saline at 50 mL an hour. Stable to be discharged home from nephrology standpoint. I advised her to limit her fluid intake to 50-60 ounces per day and increase her protein intake. Repeat basic metabolic panel in 2-3 days postdischarge and follow up outpatient in the next 1-2 weeks.
[2018-11-12 09:30] VITALS: RESP 20
[2018-11-12 11:14] LABS: Glucose,Whole Blood 93 mg/dL (75-99)
--- NOTE | 2018-11-12 11:28 | P.DS ---
Providers Date of admission: 11/08/18 12:17 Expected date of discharge: 11/12/18 Attending physician: Anthony Cameron Consults: 11/08/18 17:20 Consult Physician Urgent Consulting Provider: Geoffrey Carlson Consult Reason/Comments: facial swelling chronic sinusitis Do you want consulting provider notified?: Yes 11/09/18 11:02 Consult Physician Routine Consulting Provider: Dione Stovall Consult Reason/Comments: hyponatremia Do you want consulting provider notified?: Yes 11/09/18 15:10 Consult Physician Routine Consulting Provider: Stanton Rangel Consult Reason/Comments: left facial cellulitis, rule out odontogenic etio logy tooth 17 Do you want consulting provider notified?: Yes Primary care physician: Anthony Cameron Hospital Course: 83-year-old female was admitted to the emergency room with facial swelling cellulitis. Patient was evaluated by ear nose throat oral surgeon and nephrology patient has been stabilized will be sent home on Augmentin 875 Assessment Hyponatremia resolving sinusitis with facial cellulitis Dental caries History of coronary disease with HI History of CVA/TIA with left eye blindness Diabetes type 2 GERD Hypertension Hyperlipidemia Plan Follow-up with family physician Dr. Anthony Cameron Follow-up with neurosurgeon Dr. Baldwin Follow-up with ear nose throat specialist Dr. Mauricio Patient Condition at Discharge: Stable Plan - Discharge Summary Discharge Rx Participant: No New Discharge Prescriptions: New Amoxic-Pot Clav 875-125Mg [Augmentin 875-125] 1 tab PO Q12HR 7 Days #14 tablet Continue Aspirin 81 mg PO HS Metoprolol Tartrate [Lopressor] 50 mg PO BID Clopidogrel [Plavix] 75 mg PO DAILY Vits A,C,E/Lutein/Minerals [Ocuvite with Lutein Tablet] 2 tab PO DAILY Cholecalciferol [Vitamin D3] 1,000 unit PO DAILY Levothyroxine Sodium [Synthroid] 88 mcg PO DAILY ALPRAZolam [Xanax] 0.25 mg PO DAILY PRN #30 PRN Reason: Anxiety metFORMIN HCL [Glucophage] 500 mg PO BID Glimepiride [Amaryl] 1 mg PO AC-BRKFST Acetaminophen Tab [Tylenol] 500 mg PO Q6HR PRN tab PRN Reason: Fever And/ Or Pain Acetaminophen with Codeine [Tylenol w/codeine #3] 1 tab PO Q6H PRN PRN Reason: Pain Atorvastatin [Lipitor] 80 mg PO HS amLODIPine [Norvasc] 5 mg PO BID #60 tab Losartan [Cozaar] 100 mg PO DAILY #30 tab Nitroglycerin Sl Tabs [Nitrostat] 0.4 mg SUBLINGUAL Q5M PRN #25 tab PRN Reason: Chest Pain Discontinued Furosemide [Lasix] 20 mg PO DAILY Hydrochlorothiazide 12.5 mg PO DAILY Discharge Medication List Aspirin 81 mg PO HS 01/21/14 [History] Clopidogrel [Plavix] 75 mg PO DAILY 01/21/14 [History] Metoprolol Tartrate [Lopressor] 50 mg PO BID 01/21/14 [History] Cholecalciferol [Vitamin D3] 1,000 unit PO DAILY 05/03/16 [History] Vits A,C,E/Lutein/Minerals [Ocuvite with Lutein Tablet] 2 tab PO DAILY 05/03/16 [History] Levothyroxine Sodium [Synthroid] 88 mcg PO DAILY 05/31/17 [History] ALPRAZolam [Xanax] 0.25 mg PO DAILY PRN #30 06/05/17 [Rx] Glimepiride [Amaryl] 1 mg PO AC-BRKFST 04/28/18 [History] metFORMIN HCL [Glucophage] 500 mg PO BID 04/28/18 [History] Acetaminophen Tab [Tylenol] 500 mg PO Q6HR PRN tab 05/01/18 [Rx] Acetaminophen with Codeine [Tylenol w/codeine #3] 1 tab PO Q6H PRN 09/25/18 [History] Atorvastatin [Lipitor] 80 mg PO HS 10/18/18 [History] Losartan [Cozaar] 100 mg PO DAILY #30 tab 10/21/18 [Rx] Nitroglycerin Sl Tabs [Nitrostat] 0.4 mg SUBLINGUAL Q5M PRN #25 tab 10/21/18 [Rx] amLODIPine [Norvasc] 5 mg PO BID #60 tab 10/21/18 [Rx] Amoxic-Pot Clav 875-125Mg [Augmentin 875-125] 1 tab PO Q12HR 7 Days #14 tablet 11/12/18 [Rx] Follow up Appointment(s)/Referral(s): Anthony Cameron MD [Primary Care Provider] - 03/22/19 11:00 am (Monday, Please do a BNP per nephrology. ) Per Baldwin DDS [STAFF PHYSICIAN] - 1-2 Days Zane Yi MD [STAFF PHYSICIAN] - 1 Week Arya Snider DO [STAFF PHYSICIAN] - 2 Weeks (1-2 week follow up. ) Patient Instructions/Handouts: Hyponatremia (DC)
[2018-11-12 12:11] VITALS: BP 159/67; PULSE 64; TEMP 97.6
[2018-11-12] MEDS ORDERED: INSULIN DETEMIR (LEVEMIR) 100 UNIT/ML SYR SQ SCH (21:00)
--- NOTE | 2018-11-13 14:50 | CDI ---
Documentation Clarification Form Date: 11/13/2018 1:22:00 PM From: Francisca Chirinos Brenda Harding, Step Down Nurse Hours-8:30 am & 5 pm Kai Admit Date: 11/08/2018 12:17:00 PM Patient Name: Praveena Brewster Visit Number: [id number] Discharge Date: 11/12/2018 1:00:00 PM ATTENTION: The Clinical Documentation Specialists (CDI) and [facility] Coding Staff appreciate your assistance in clarifying documentation. Please respond to the clarification below the line at the bottom and electronically sign. The CDI & [facility] Coding staff will review the response and follow-up if needed. Please note: Queries are made part of the Legal Health Record. If you have any questions, please contact the author of this message via ITS. Dr. Anthony Cameron Possible sepsis present on admission is documented on PN 11/10, 11/11. History/Risk Factors: Cellulitis, Sinusitis, DM, Hyponatremia WBC: 5.3,7.1,11.6 Vitals signs on admission: T 97.5, BP 140/72, NM 66, RR 16 Treatment: IV Abx In your professional opinion, please clarify if these findings signify one of the following conditions, if known: Sepsis ruled out Sepsis ruled in Severe Sepsis Septic Shock Other, please specify Unable to determine ruled out MTDD
== END 2018-11-12 13:00 | disposition home or self-care (01) | DRG 603 ==
LOC: EC 09:33 → 3SCARD 12:17
PROVIDERS: ADMIT Family Medicine; ATTEND Family Medicine
DX: L03.211 Cellulitis of face (principal); E87.1 Hypo-osmolality and hyponatremia; E11.649 Type 2 diabetes mellitus with hypoglycemia without coma; E86.1 Hypovolemia; E11.65 Type 2 diabetes mellitus with hyperglycemia; R06.00 Dyspnea, unspecified; I69.398 Other sequelae of cerebral infarction; K21.9 Gastro-esophageal reflux disease without esophagitis; J32.0 Chronic maxillary sinusitis; K02.9 Dental caries, unspecified; Z66 Do not resuscitate; I10 Essential (primary) hypertension; E78.5 Hyperlipidemia, unspecified; H54.8 Legal blindness, as defined in USA; K59.00 Constipation, unspecified; I25.10 Atherosclerotic heart disease of native coronary artery without angina pectoris; M19.90 Unspecified osteoarthritis, unspecified site; H35.30 Unspecified macular degeneration; K44.9 Diaphragmatic hernia without obstruction or gangrene; G43.909 Migraine, unspecified, not intractable, without status migrainosus; E89.0 Postprocedural hypothyroidism; F41.9 Anxiety disorder, unspecified; J30.9 Allergic rhinitis, unspecified; J34.1 Cyst and mucocele of nose and nasal sinus; H91.90 Unspecified hearing loss, unspecified ear; K59.09 Other constipation; I25.2 Old myocardial infarction; Z79.82 Long term (current) use of aspirin; Z79.02 Long term (current) use of antithrombotics/antiplatelets; Z79.890 Hormone replacement therapy; Z79.899 Other long term (current) drug therapy; Z95.5 Presence of coronary angioplasty implant and graft; Z91.048 Other nonmedicinal substance allergy status; Z90.710 Acquired absence of both cervix and uterus; Z98.41 Cataract extraction status, right eye; Z82.49 Family history of ischemic heart disease and other diseases of the circulatory system
CPT/HCPCS: 36415; 70450; 70486; 71046; 80048; 80053; 81003; 82533; 83036; 83735; 83880; 83930; 83935; 84295; 84300; 84443; 85025; 93005; 96374; 96375; 99285

== ENCOUNTER 2018-11-14 05:11 | Inpatient (IN) | payer MEDICARE, BC ==
[2018-11-14 05:36] LABS: Basophils # (A) 0.1 k/uL (0-0.2); Basophils % (A) 1 %; Eosinophils # (A) 0.4 k/uL (0-0.7); Eosinophils % (A) 3 %; HCT 38.3 % (34.0-46.0); HGB 12.7 gm/dL (11.4-16.0); Lymphocytes # (A) 4.2 k/uL (1.0-4.8); Lymphocytes % (A) 36 %; MCH 29.6 pg (25.0-35.0); MCHC 33.3 g/dL (31.0-37.0); Mean Platelet Volume 7.6; Monocytes % (A) 8 %; Neutrophils # (A) 5.7 k/uL (1.3-7.7); Neutrophils % (A) 50 %; Platelet Count 390 k/uL (150-450); RDW 13.5 % (11.5-15.5); WBC 11.6 k/uL (3.8-10.6)
[2018-11-14 05:44] LABS: INR 0.9 (<1.2); Partial Thromboplastin Time 23.8 sec (22.0-30.0); Prothrombin Time 9.8 sec (9.0-12.0)
[2018-11-14 05:46] LABS: ALT 53 U/L (9-52); AST 44 U/L (14-36); Albumin 4.4 g/dL (3.5-5.0); Alkaline Phosphatase 106 U/L (38-126); Anion Gap 12 mmol/L; Blood Urea Nitrogen 15 mg/dL (7-17); Calcium 8.6 mg/dL (8.4-10.2); Carbon Dioxide 22 mmol/L (22-30); Chloride 97 mmol/L (98-107); Glucose 122 mg/dL (74-99); Magnesium 1.5 mg/dL (1.6-2.3); Sodium 131 mmol/L (137-145); Total Bilirubin 0.7 mg/dL (0.2-1.3); Total Protein 7.5 g/dL (6.3-8.2)
[2018-11-14 05:48] LABS: Potassium 4.7 mmol/L (3.5-5.1)
--- NOTE | 2018-11-14 05:51 | XR ---
EXAM: XR Chest, 2 Views. CLINICAL HISTORY: Reason: Chest Pain TECHNIQUE: Frontal and lateral views of the chest. COMPARISON: 11/08/18. FINDINGS: Lungs: Low lung volumes. Prominent perihilar interstitial markings suggestive of mild edema. No definite airspace consolidation. Pleural spaces: Unremarkable. No pneumothorax. Heart: Borderline cardiomegaly. Mediastinum: No mediastinal widening or shift. Bones: Unremarkable. No acute fracture. IMPRESSION: Borderline cardiomegaly with mild interstitial edema. Please correlate for symptoms of congestive heart failure or hypervolemia. No definite airspace consolidation.
[2018-11-14] MEDS: MAGNESIUM SULFATE-D5W PMX 1 GM in DEXTROSE/WATER 1 100ML.BAG IVPB SCH ×2 (07:02→08:01)
[2018-11-14] MEDS ORDERED: NALOXONE 0.4 MG/ML 1 ML VIAL IV PRN (07:05)
[2018-11-14] MEDS ORDERED: MORPHINE SULFATE 4 MG/ML SYRINGE IV PRN (07:20)
--- NOTE | 2018-11-14 07:31 | ED ---
Chest Pain HPI - General Chief Complaint: Chest Pain Stated Complaint: Chest Pain Time Seen by Provider: 11/14/18 05:13 Source: patient, family Mode of arrival: wheelchair Limitations: no limitations - History of Present Illness Initial Comments: Praveena is a pleasant 83-year-old female with an extensive cardiac history presents the ED this morning for evaluation of chest pain. Patient was recently admitted and had cardiac catheterization with stenting. Patient currently has [address] Patient's on aspirin and Plavix reports she's been compliant with her medications. She reports she woke from sleep early this morning with pressure-like retrosternal chest pain. Patient took 2 aspirin and waited hoping that the pain would resolve however it progressively worsened until was 10 out of 10 intensity at which time she woke her son's and asked to be brought to the hospital for further evaluation. Upon evaluation patient states that her pain is improving she's not feeling any diaphoresis lightheadedness or shortness of breath. Patient was admitted in September of similar pain at which time workup was unremarkable however she underwent cardiac catheterization and had stent placement. - Related Data Home Medications Medication Instructions Recorded Confirmed Aspirin 81 mg PO HS 01/21/14 11/14/18 Clopidogrel [Plavix] 75 mg PO DAILY 01/21/14 11/14/18 Metoprolol Tartrate [Lopressor] 50 mg PO BID 01/21/14 11/14/18 Cholecalciferol [Vitamin D3] 1,000 unit PO DAILY 05/03/16 11/14/18 Vits A,C,E/Lutein/Minerals 2 tab PO DAILY 05/03/16 11/14/18 [Ocuvite with Lutein Tablet] Levothyroxine Sodium [Synthroid] 88 mcg PO DAILY 05/31/17 11/14/18 Glimepiride [Amaryl] 1 mg PO AC-BRKFST 04/28/18 11/14/18 metFORMIN HCL [Glucophage] 500 mg PO BID 04/28/18 11/14/18 Acetaminophen with Codeine 1 tab PO Q6H PRN 09/25/18 11/14/18 [Tylenol w/codeine #3] Atorvastatin [Lipitor] 80 mg PO HS 10/18/18 11/14/18 Previous Rx's Medication Instructions Recorded ALPRAZolam [Xanax] 0.25 mg PO DAILY PRN #30 06/05/17 Acetaminophen Tab [Tylenol] 500 mg PO Q6HR PRN tab 05/01/18 Losartan [Cozaar] 100 mg PO DAILY #30 tab 10/21/18 Nitroglycerin Sl Tabs [Nitrostat] 0.4 mg SUBLINGUAL Q5M PRN #25 tab 10/21/18 amLODIPine [Norvasc] 5 mg PO BID #60 tab 10/21/18 Amoxic-Pot Clav 875-125Mg 1 tab PO Q12HR 7 Days #14 tablet 11/12/18 [Augmentin 875-125] Allergies Allergy/AdvReac Type Severity Reaction Status Date / Time PAPER TAPE Allergy Unknown Rash/Hives Uncoded 11/14/18 07:16 Review of Systems ROS Statement: Those systems with pertinent positive or pertinent negative responses have been documented in the HPI. ROS Other: All systems not noted in ROS Statement are negative. EKG Findings - EKG Results: EKG: interpreted by ERMD (EKG obtained at 5:11 AM, rate is 79 rhythm is sinus there is an incomplete right bundle-branch block there is no acute ST elevations or depressions no evidence of acute ischemia or infarction. 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 Last Myocardial Infarction Date:: 04/2018 History of Any Multi-Drug Resistant Organisms: None Reported Past Surgical History: Back Surgery, Breast Surgery, Heart Catheterization With Stent, Hysterectomy, Orthopedic Surgery, Tubal Ligation Additional Past Surgical History / Comment(s): PCI with a total of 7 stents, low back surgery, L breast benign bx, R rotator cuff repair, R eye cataract removed, multiple bilateral laser eye surgeries, bilateral eye stents-R one fell out, thyroidectomy d/t nodules, temporal artery bx, cervical and lumbar injections. Past Anesthesia/Blood Transfusion Reactions: Previous Problems w/ Anesthesia Additional Past Anesthesia/Blood Transfusion Reaction / Comment(s): hard to wake up Date of Last Stent Placement:: 10/22/18 Past Psychological History: Anxiety Smoking Status: Never smoker - Past Family History Mother Family Medical History: Myocardial Infarction (PA) Additional Family Medical History / Comment(s): MOTHER OF A PA AT THE AGE OF 57YRS. Brother(s) Family Medical History: Myocardial Infarction (PA) Additional Family Medical History / Comment(s): BROTHER OF A PA AT THE AGE OF 60YRS. Father Family Medical History: No Reported History Additional Family Medical History / Comment(s): FATHER LIVED TO BE 90YRS OLD. General Exam - General Exam Comments Initial Comments: Physical Exam GENERAL: Elderly female, very hard of hearing but in no acute distress HENT: Normocephalic, Atraumatic. EYES: PERRL, EOMI PULMONARY: Unlabored respirations. No audible rales rhonchi or wheezing was noted. CARDIOVASCULAR: There is a regular rate and rhythm without any gallops or rubs. Warm and well-perfused extremities ABDOMEN: Soft and nontender with normal bowel sounds. SKIN: Skin is clear with no lesions or rashes and otherwise unremarkable. : Deferred NEUROLOGIC: Patient is alert and oriented x3. Moving all extremities spontaneously MUSCULOSKELETAL: Normal extremities with adequate strength and full range of motion. No lower e xtremity swelling or edema. No calf tenderness. No pedal edema PSYCHIATRIC: Normal psychiatric evaluation. Limitations: no limitations Limitations: no limitations Course Vital Signs 11/14/18 11/14/18 05:14 07:03 Temperature 97.5 F L Pulse Rate 79 68 Respiratory 18 16 Rate Blood Pressure 163/73 129/66 O2 Sat by Pulse 100 100 Oximetry Chest Pain MDM - MDM Patient was seen and evaluated, history is obtained from the patient and signed patient took aspirin prior to arrival Patient with retrosternal pressure-like chest pain which is improving since arrival in the ER patient does have a significant cardiac history EKG was obtained due to patient's cardiac history and presentation with chest pain EKG nonischemic with no significant change in morphology from previous Labs were obtained, no significant abnormalities troponin is not elevated Given the patient's age and risk factors she is high risk I recommended patient remain in the hospital for further evaluation by cardiology. Patient and family are agreeable with this. Patient care was discussed with her primary care physician Dr. Cameron who agrees with plan for admission, trending troponins and consult to cardiology. Admission orders were placed. Disposition Clinical Impression: Unstable angina pectoris Disposition: ADMITTED IP TO THIS HOSP Condition: Stable Is patient prescribed a controlled substance at d/c from ED?: No Referrals: Anthony Cameron MD [Primary Care Provider] - 1-2 days
[2018-11-14] MEDS ORDERED: MORPHINE SULFATE 4 MG/ML SYRINGE IVP STA (07:34)
[2018-11-14] MEDS ORDERED: ALPRAZolam 0.25 MG TAB PO PRN (08:27)
[2018-11-14] MEDS ORDERED: Acetaminophen-Codeine 300-30mg TAB PO PRN (08:27)
[2018-11-14] MEDS: amLODIPine 5 MG TAB PO SCH ×2 (09:41→21:44)
[2018-11-14] MEDS: CHOLECALCIFEROL 1,000 UNIT TAB PO SCH (09:42)
[2018-11-14] MEDS: AMOXIC-POT CLAV 875-125MG 1 EACH TAB PO SCH ×2 (09:42→21:45)
[2018-11-14] MEDS: LOSARTAN 50 MG TAB PO SCH (09:42)
[2018-11-14] MEDS: METOPROLOL TARTRATE 50 MG TAB PO SCH ×2 (09:42→21:44)
[2018-11-14] MEDS: CLOPIDOGREL 75 MG TAB PO SCH (09:42)
[2018-11-14] MEDS: metFORMIN 500 MG TAB PO SCH ×2 (09:43→18:01)
[2018-11-14] MEDS: VIT A,C & E-LUTEIN-MINERALS 1 EACH TAB PO SCH (09:43)
[2018-11-14] MEDS: LEVOTHYROXINE 88 MCG TAB PO SCH (10:24)
--- NOTE | 2018-11-14 12:05 | P.HPIM ---
History of Present Illness 83-year-old female woke this morning at 4:00 with the numbness to her face and the severe chest pain radiating to back with vomiting and diaphoresis. Family brought her to the emergency room. Patient was seen in the emergency room. Patient states she still some chest pressure. Patient does have a history of coronary disease with stents that were placed in September does have a history of CO and patient is also diabetic Review of Systems Constitutional: Reports fatigue, Reports sweats, Reports weakness Cardiovascular: Reports chest pain Gastrointestinal: Reports vomiting Past Medical History Past Medical History: Coronary Artery Disease (CAD), CVA/TIA, Diabetes Mellitus, Eye Disorder, GERD/Reflux, Hearing Disorder / Deafness, Hyperlipidemia, Hypertension, Myocardial Infarction (CO), Osteoarthritis (OA), Thyroid Disorder Additional Past Medical History / Comment(s): PT RECENTLY ADMITTED TO [facility] ON 11/08/18 WITH HYPONATREMIA/FACIAL CELLULITIS/DENTAL CARIES. 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 Last Myocardial Infarction Date:: 04/2018 History of Any Multi-Drug Resistant Organisms: None Reported Past Surgical History: Back Surgery, Breast Surgery, Heart Catheterization With Stent, Hysterectomy, Orthopedic Surgery, Tubal Ligation Additional Past Surgical History / Comment(s): PCI with a total of 7 stents, low back surgery, L breast benign bx, R rotator cuff repair, R eye cataract removed, multiple bilateral laser eye surgeries, bilateral eye stents-R one fell out, thyroidectomy d/t nodules, temporal artery bx, cervical and lumbar injections. Past Anesthesia/Blood Transfusion Reactions: Previous Problems w/ Anesthesia Additional Past Anesthesia/Blood Transfusion Reaction / Comment(s): hard to wake up Date of Last Stent Placement:: 10/22/18 Smoking Status: Never smoker - Past Family History Mother Family Medical History: Myocardial Infarction (CO) Additional Family Medical History / Comment(s): MOTHER OF A CO AT THE AGE OF 57YRS. Brother(s) Family Medical History: Myocardial Infarction (CO) Additional Family Medical History / Comment(s): BROTHER OF A CO AT THE AGE OF 60YRS. Father Family Medical History: No Reported History Additional Family Medical History / Comment(s): FATHER LIVED TO BE 90YRS OLD. Medications and Allergies Home Medications Medication Instructions Recorded Confirmed Type Aspirin 81 mg PO HS 01/21/14 11/14/18 History Clopidogrel [Plavix] 75 mg PO DAILY 01/21/14 11/14/18 History Metoprolol Tartrate [Lopressor] 50 mg PO BID 01/21/14 11/14/18 History Cholecalciferol [Vitamin D3] 1,000 unit PO DAILY 05/03/16 11/14/18 History Vits A,C,E/Lutein/Minerals 2 tab PO DAILY 05/03/16 11/14/18 History [Ocuvite with Lutein Tablet] Levothyroxine Sodium [Synthroid] 88 mcg PO DAILY 05/31/17 11/14/18 History ALPRAZolam [Xanax] 0.25 mg PO DAILY PRN #30 06/05/17 11/14/18 Rx Glimepiride [Amaryl] 1 mg PO AC-BRKFST 04/28/18 11/14/18 History metFORMIN HCL [Glucophage] 500 mg PO BID 04/28/18 11/14/18 History Acetaminophen Tab [Tylenol] 500 mg PO Q6HR PRN tab 05/01/18 11/14/18 Rx Acetaminophen with Codeine 1 tab PO Q6H PRN 09/25/18 11/14/18 History [Tylenol w/codeine #3] Atorvastatin [Lipitor] 80 mg PO HS 10/18/18 11/14/18 History Losartan [Cozaar] 100 mg PO DAILY #30 tab 10/21/18 11/14/18 Rx Nitroglycerin Sl Tabs [Nitrostat] 0.4 mg SUBLINGUAL Q5M PRN #25 tab 10/21/18 11/14/18 Rx amLODIPine [Norvasc] 5 mg PO BID #60 tab 10/21/18 11/14/18 Rx Amoxic-Pot Clav 875-125Mg 1 tab PO Q12HR 7 Days #14 tablet 11/12/18 11/14/18 Rx [Augmentin 875-125] Allergies Allergy/AdvReac Type Severity Reaction Status Date / Time PAPER TAPE Allergy Unknown Rash/Hives Uncoded 11/14/18 07:16 Physical Exam Vitals: Vital Signs Temp Pulse Resp BP Pulse Ox 11/14/18 09:37 97.6 F 62 18 127/72 98 11/14/18 07:42 62 16 137/64 98 11/14/18 07:03 68 16 129/66 100 11/14/18 05:14 97.5 F L 79 18 163/73 100 Intake and Output 11/13/18 11/14/18 11/14/18 22:59 06:59 14:59 Other: Weight 73.028 kg - Constitutional General appearance: mild distress, obese - EENT Left eye blind Eyes: PERRLA Ears: bilateral: normal - Neck Neck: normal ROM - Respiratory Respiratory: bilateral: CTA - Cardiovascular Rhythm: regular - Gastrointestinal General gastrointestinal: soft - Integumentary Integumentary: normal - Neurologic Neurologic: CNII-XII intact - Musculoskeletal Musculoskeletal: generalized weakness - Psychiatric Psychiatric: A&O x's 3, appropriate affect, intact judgment & insight Results CBC & Chem 7: 11/14/18 05:15 11/14/18 05:15 Labs: Abnormal Lab Results - Last 24 Hours (Table) 11/14/18 11/14/18 Range/Units 05:15 05:15 WBC 11.6 H (3.8-10.6) k/uL Sodium 131 L (137-145) mmol/L Chloride 97 L (98-107) mmol/L Glucose 122 H (74-99) mg/dL Magnesium 1.5 L (1.6-2.3) mg/dL AST 44 H (14-36) U/L ALT 53 H (9-52) U/L Abdominal x-ray: report reviewed Thrombosis Risk Factor Assmnt - Choose All That Apply Any of the Below Risk Factors Present?: Yes Each Factor Represents 1 point: Obesity (BMI >25) Other Risk Factors: Yes Each Risk Factor Represents 3 Points: Age 75 years or older Other congenital or acquired thrombophilia - If yes, enter type in comment: No Thrombosis Risk Factor Assessment Total Risk Factor Score: 4 Thrombosis Risk Factor Assessment Level: Moderate Risk Assessment and Plan Plan: Assessment Chest pain unstable angina History of coronary disease with stents placed in September history of CO Left eye blindness Diabetes type 2 GERD history of CVA/TIA Hypertension Hyperlipidemia Osteoarthritis Hypothyroidism Plan Serial troponins cardiology consultation
[2018-11-14 16:53] LABS: Glucose,Whole Blood 116 mg/dL (75-99)
[2018-11-14 20:40] LABS: Glucose,Whole Blood 140 mg/dL (75-99)
[2018-11-14] MEDS: ATORVASTATIN 80 MG TAB PO SCH (21:44)
[2018-11-14] MEDS: ASPIRIN 81 MG PO SCH (21:44)
[2018-11-15] MEDS: LEVOTHYROXINE 88 MCG TAB PO SCH (06:03)
[2018-11-15 06:57] LABS: Glucose,Whole Blood 118 mg/dL (75-99)
[2018-11-15] MEDS ORDERED: ATORVASTATIN 80 MG TAB PO STA (10:53)
[2018-11-15] MEDS ORDERED: SODIUM CHLORIDE 0.9% 1,000 ML in EMPTY BAG 1 BAG IV ONE (10:53)
[2018-11-15] MEDS ORDERED: NITROGLYCERIN SL TABS 0.4 MG TAB SUBLINGUAL PRN (10:53)
[2018-11-15] MEDS ORDERED: ALPRAZolam 0.25 MG TAB PO PRN (10:53)
--- NOTE | 2018-11-15 10:58 | P.PN ---
Subjective Patient resting in bed in the observation. Family at bedside. Patient denies any further chest pain awaiting cardiology consultation and echo report Objective - Vital Signs Vital signs: Vital Signs Temp 98.1 F 11/15/18 07:56 Pulse 58 L 11/15/18 07:56 Resp 18 11/15/18 07:56 BP 144/66 11/15/18 07:56 Pulse Ox 98 11/15/18 07:56 Intake & Output 11/14/18 11/15/18 11/15/18 18:59 06:59 18:59 Intake Total 240 Balance 240 Intake: Oral 240 Other: Voiding Method Toilet Toilet # Voids 1 1 1 - Constitutional General appearance: Present: obese - EENT EENT Comment(s): Left eye blindness Eyes: Present: PERRLA Ears: bilateral: normal - Neck Neck: Present: normal ROM - Respiratory Respiratory: bilateral: CTA - Cardiovascular Rhythm: regular - Gastrointestinal General gastrointestinal: Present: soft - Integumentary Integumentary: Present: normal - Neurologic Neurologic: Present: CNII-XII intact - Musculoskeletal Musculoskeletal: Present: generalized weakness - Psychiatric Psychiatric: Present: A&O x's 3, appropriate affect, intact judgment & insight - Labs CBC & Chem 7: 11/14/18 05:15 11/14/18 05:15 Labs: Abnormal Lab Results - Last 24 Hours (Table) 11/14/18 11/14/18 11/15/18 Range/Units 16:51 20:38 06:56 POC Glucose (mg/dL) 116 H 140 H 118 H (75-99) mg/dL Assessment and Plan Plan: Assessment Chest pain troponins negative History of coronary disease with stents and DC Diabetes type 2 Left eye blindness GERD CVA/TIA Hypertension Hyperlipidemia Osteoarthritis Hypothyroidism Plan Awaiting consultation notes from cardiology Awaiting echo report Hopeful discharge today
[2018-11-15] MEDS ORDERED: Magnesium Replacement Protocol 1 EACH MISC MISCELLANE PRN (11:07)
--- NOTE | 2018-11-15 11:18 | P.CRDCN ---
History of Present Illness History of present illness: This is a pleasant 83-year-old female past medical history significant for coronary artery disease status post stent placement to the ostial circumflex in September of this year, dyslipidemia, hypertension, diabetes mellitus and hypothyroidism. She follows in the office with Dr. Silva. We have been asked to see her in consultation for chest pain. She states she woke up yesterday morning in her usual state of health around 4 in the morning. Once she started getting up and moving around she had an acute onset of an intense heavy sensation in the left precordial region associated with shortness of breath, nausea and vomiting. Symptoms persisted despite her trying to walk around the house and take a deep breath. She was unable to alleviate the chest discomfort. She took aspirin at home and subsequently vomited. Her pain persisted until she came to the emergency department and ultimately subsided on its own. She did not take nitroglycerin at home prior to arrival. She has a history of multivessel coronary artery disease she underwent stenting of the mid circumflex and mid LAD in 2011, in-stent restenosis of the LAD in 2017 and stent placement to the ostial circumflex in September 2018. Cardiac catheterization in September 2018 revealed RCA small nondominant vessel with diffuse disease, left main is a short vessel free of significant disease with mild calcification noted, LAD with a patent stent in the midportion, distal LAD was dilated and patent with minor irregularities lesions anywhere from 30-45% throughout the LAD but the stented segment is widely patent, circumflex artery with an ostial lesion of approximately 50-55%, mid circumflex stent is patent. EKG reveals sinus mechanism heart rate of 79 with a right bundle branch block with ST depression noted in the lateral leads. Chest x-ray reveals borderline cardiomegaly with mild interstitial edema. Laboratory data reviewed, cardiac enzymes negative 3, WBC 11.6, hemoglobin 12.7, platelets 390, sodium 131, potassium 4.7, creatinine 0.65, magnesium 1.5, AST 44, ALT 53. Current cardiac medications include aspirin 81 mg daily, atorvastatin 80 mg daily, Plavix 75 mg daily, losartan 100 mg daily, Lopressor 50 mg twice a day and amlodipine 5 mg twice a day. Most recent echocardiogram obtained September 2018 reveals preserved left ventricular systolic function with ejection fraction 55-60%, mild to moderate mitral regurgitation. At the time of my exam: CONSTITUTIONAL: Denies fever. Denies chills. EYES: Denies blurred vision. Denies vision changes. Denies eye pain. EARS, NOSE, MOUTH & THROAT: Denies headache. Denies sore throat. Denies ear pain. CARDIOVASCULAR: Denies chest pain. Denies shortness of breath. Denies orthopnea. Denies PND. Denies palpitations. RESPIRATORY: Denies cough. GASTROINTESTINAL: Denies abdominal pain. Denies diarrhea. Denies constipation. Denies nausea. Denies vomiting. MUSCULOSKELETAL: Denies myalgias. INTEGUMENTARY: Denies pruitis. Denies rash. NEUROLOGIC: Denies numbness. Denies tingling. Denies weakness. PSYCHIATRIC: Denies anxiety. Denies depression. ENDOCRINE: Denies fatigue. Denies weight change. Denies polydipsia. Denies polyurina. GENITOURINARY: Denies burning, hematuria or urgency with micturation. HEMATOLOGIC: Denies history of anemia. Denies bleeding. Blood pressure 144/66 heart rate 58 afebrile maintaining oxygen saturation on room air GENERAL: This is a 83-year-old female in no apparent distress at the time of my examination. HEENT: Head is atraumatic, normocephalic. Pupils are equal, round. Sclerae anicteric. Conjunctivae are clear. Mucous membranes of the mouth are moist. Neck is supple. There is no jugular venous distention. No carotid bruit is heard. LUNGS: Clear to auscultation no wheezes, rales or rhonchi. No chest wall tenderness is noted on palpation or with deep breathing. HEART: Regular rate and rhythm with systolic ejection murmur at the base, no rubs or gallops. S1 and S2 heard. ABDOMEN: Soft, nontender. Bowel sounds are heard. No organomegaly noted. EXTREMITIES: No evidence of peripheral edema and no calf tenderness noted. VASCULAR: Radial and dorsalis pedis pulses palpated, no evidence of clubbing. NEUROLOGIC: Patient is awake, alert and oriented x3. ASSESSMENT Unstable angina. An acute coronary event has been ruled out with negative cardiac enzymes. She has nonspecific ST changes noted on the EKG. Hypomagnesemia History of coronary artery disease status post multivessel PCI Hypertension Dyslipidemia Diabetes mellitus PLAN Obtain limited echo to assess LV function and for wall motion abnormality. Replace magnesium per protocol. Symptoms and EKG abnormalities are suggestive of progression of coronary artery disease or possible in-stent restenosis. We recommend proceeding with cardiac catheterization to further assess the coronary arteries. I have discussed the risks, benefits and alternative therapies for the above-mentioned procedure and for both sedation/analgesia as well as necessary blood product administration, if indicated, as they pertain to this patient. The patient has indicated understanding and acceptance of the risks and procedures discussed. Further recommendations to follow based upon clinical course. Thank you kindly for this consultation. Nurse Practitioner note has been reviewed, I agree with a documented findings and plan of care. Patient was seen and examined. Past Medical History Past Medical History: Coronary Artery Disease (CAD), CVA/TIA, Diabetes Mellitus, Eye Disorder, GERD/Reflux, Hearing Disorder / Deafness, Hyperlipidemia, Hypertension, Myocardial Infarction (AR), Osteoarthritis (OA), Thyroid Disorder Additional Past Medical History / Comment(s): PT RECENTLY ADMITTED TO [facility] ON 11/08/18 WITH HYPONATREMIA/FACIAL CELLULITIS/DENTAL CARIES. 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 Last Myocardial Infarction Date:: 04/2018 History of Any Multi-Drug Resistant Organisms: None Reported Past Surgical History: Back Surgery, Breast Surgery, Heart Catheterization With Stent, Hysterectomy, Orthopedic Surgery, Tubal Ligation Additional Past Surgical History / Comment(s): PCI with a total of 7 stents, low back surgery, L breast benign bx, R rotator cuff repair, R eye cataract removed, multiple bilateral laser eye surgeries, bilateral eye stents-R one fell out, thyroidectomy d/t nodules, temporal artery bx, cervical and lumbar injections. Past Anesthesia/Blood Transfusion Reactions: Previous Problems w/ Anesthesia Additional Past Anesthesia/Blood Transfusion Reaction / Comment(s): hard to wake up Date of Last Stent Placement:: 10/22/18 Smoking Status: Never smoker - Past Family History Mother Family Medical History: Myocardial Infarction (AR) Additional Family Medical History / Comment(s): MOTHER OF A AR AT THE AGE OF 57YRS. Brother(s) Family Medical History: Myocardial Infarction (AR) Additional Family Medical History / Comment(s): BROTHER OF A AR AT THE AGE OF 60YRS. Father Family Medical History: No Reported History Additional Family Medical History / Comment(s): FATHER LIVED TO BE 90YRS OLD. Medications and Allergies Home Medications Medication Instructions Recorded Confirmed Type Aspirin 81 mg PO HS 01/21/14 11/14/18 History Clopidogrel [Plavix] 75 mg PO DAILY 01/21/14 11/14/18 History Metoprolol Tartrate [Lopressor] 50 mg PO BID 01/21/14 11/14/18 History Cholecalciferol [Vitamin D3] 1,000 unit PO DAILY 05/03/16 11/14/18 History Vits A,C,E/Lutein/Minerals 2 tab PO DAILY 05/03/16 11/14/18 History [Ocuvite with Lutein Tablet] Levothyroxine Sodium [Synthroid] 88 mcg PO DAILY 05/31/17 11/14/18 History ALPRAZolam [Xanax] 0.25 mg PO DAILY PRN #30 06/05/17 11/14/18 Rx Glimepiride [Amaryl] 1 mg PO [id number]-[id number] 04/28/18 11/14/18 History metFORMIN HCL [Glucophage] 500 mg PO BID 04/28/18 11/14/18 History Acetaminophen Tab [Tylenol] 500 mg PO Q6HR PRN tab 05/01/18 11/14/18 Rx Acetaminophen with Codeine 1 tab PO Q6H PRN 09/25/18 11/14/18 History [Tylenol w/codeine #3] Atorvastatin [Lipitor] 80 mg PO HS 10/18/18 11/14/18 History Losartan [Cozaar] 100 mg PO DAILY #30 tab 10/21/18 11/14/18 Rx Nitroglycerin Sl Tabs [Nitrostat] 0.4 mg SUBLINGUAL Q5M PRN #25 tab 10/21/18 11/14/18 Rx amLODIPine [Norvasc] 5 mg PO BID #60 tab 10/21/18 11/14/18 Rx Amoxic-Pot Clav 875-125Mg 1 tab PO Q12HR 7 Days #14 tablet 11/12/18 11/14/18 Rx [Augmentin 875-125] Allergies Allergy/AdvReac Type Severity Reaction Status Date / Time PAPER TAPE Allergy Unknown Rash/Hives Uncoded 11/14/18 07:16 Physical Exam Vitals: Vital Signs Temp Pulse Pulse Resp BP BP BP 11/15/18 04:00 97.8 F 59 L 16 124/67 11/15/18 00:00 60 16 11/14/18 23:44 98.4 F 60 16 131/70 11/14/18 20:00 98.2 F 61 16 144/66 11/14/18 16:00 98.4 F 54 L 18 120/69 11/14/18 13:03 61 18 11/14/18 13:01 98.1 F 61 18 154/76 11/14/18 12:21 98.1 F 60 18 136/58 11/14/18 09:37 97.6 F 62 18 127/72 Pulse Ox 11/15/18 04:00 97 11/15/18 00:00 11/14/18 23:44 96 11/14/18 20:00 95 11/14/18 16:00 99 11/14/18 13:03 11/14/18 13:01 100 11/14/18 12:21 97 11/14/18 09:37 98 Intake and Output 11/14/18 11/15/18 11/15/18 22:59 06:59 14:59 Intake Total 240 Balance 240 Intake: Oral 240 Other: Voiding Method Toilet Toilet # Voids 1 1 Results 11/14/18 05:15 11/14/18 05:15 Cardiac Enzymes 11/14/18 11/14/18 Range/Units 13:02 19:24 Troponin I <0.012 <0.012 (0.000-0.034) ng/mL Current Medications Generic Name Dose Route Start Last Admin Trade Name Ellen PRN Reason Stop Dose Admin Acetaminophen/Codeine Phosphate 1 each 11/14/18 08:27 Tylenol #3 PO Q6H PRN MILD Pain Alprazolam 0.25 mg 11/14/18 08:27 11/15/18 02:03 Xanax PO 0.25 mg DAILY PRN Administration Anxiety Amlodipine Besylate 5 mg 11/14/18 09:00 11/14/18 21:44 Norvasc PO 5 mg BID ANDREW Administration Amoxicillin/Clavulanate Potassium 1 each 11/14/18 09:00 11/14/18 21:45 Augmentin 875-125 PO 11/18/18 21:01 1 each Q12HR ANDREW Administration Aspirin 81 mg 11/14/18 21:00 11/14/18 21:44 Aspirin PO 81 mg HS ANDREW Administration Atorvastatin Calcium 80 mg 11/14/18 21:00 11/14/18 21:44 Lipitor PO 80 mg HS ANDREW Administration Cholecalciferol 1,000 unit 11/14/18 09:00 11/14/18 09:42 Vitamin D3 PO 1,000 unit DAILY ANDREW Administration Clopidogrel Bisulfate 75 mg 11/14/18 09:00 11/14/18 09:42 Plavix PO 75 mg DAILY [facility] Administration Glimepiride 1 mg 11/15/18 07:30 Amaryl PO AC-BRKFST [facility] Levothyroxine Sodium 88 mcg 11/14/18 09:00 11/15/18 06:03 Synthroid PO 88 mcg DAILY@0630 [facility] Administration Losartan Potassium 100 mg 11/14/18 09:00 11/14/18 09:42 Cozaar PO 100 mg DAILY [facility] Administration Metformin HCl 500 mg 11/14/18 09:00 11/14/18 18:01 Glucophage PO 500 mg BID-W/MEALS [facility] Administration Metoprolol Tartrate 50 mg 11/14/18 09:00 11/14/18 21:44 Lopressor PO 50 mg BID [facility] Administration Morphine Sulfate 4 mg 11/14/18 07:20 Morphine Sulfate (Inj) IV Q4HR PRN Severe Pain Multivitamins/Minerals 1 each 11/14/18 09:00 11/14/18 09:43 Ivite PO 1 each DAILY [facility] Administration Naloxone HCl 0.2 mg 11/14/18 07:05 Narcan IV Q2M PRN Opioid Reversal Intake and Output 11/14/18 11/15/18 11/15/18 22:59 06:59 14:59 Intake Total 240 Balance 240 Intake: Oral 240 Other: Voiding Method Toilet Toilet # Voids 1 1 11/14/18 05:15 11/14/18 05:15
[2018-11-15 12:05] LABS: Glucose,Whole Blood 111 mg/dL (75-99)
[2018-11-15] MEDS: LOSARTAN 50 MG TAB PO SCH (12:07)
[2018-11-15] MEDS: metFORMIN 500 MG TAB PO SCH ×2 (12:07→18:40)
[2018-11-15] MEDS: CLOPIDOGREL 75 MG TAB PO SCH (12:07)
[2018-11-15] MEDS: amLODIPine 5 MG TAB PO SCH ×2 (12:07→21:24)
[2018-11-15] MEDS: ASPIRIN 325 MG TAB PO STA (12:07)
[2018-11-15] MEDS: CHOLECALCIFEROL 1,000 UNIT TAB PO SCH (12:07)
[2018-11-15] MEDS: METOPROLOL TARTRATE 50 MG TAB PO SCH ×2 (12:08→21:25)
[2018-11-15] MEDS: GLIMEPIRIDE 1 MG TAB PO SCH (12:08)
[2018-11-15] MEDS: AMOXIC-POT CLAV 875-125MG 1 EACH TAB PO SCH ×2 (12:08→21:24)
[2018-11-15] MEDS: VIT A,C & E-LUTEIN-MINERALS 1 EACH TAB PO SCH (12:08)
--- NOTE | 2018-11-15 12:19 | ECHOF ---
Referral Reason:cp, MEASUREMENTS -------- HEIGHT: 149.9 cm WEIGHT: 73.0 kg BP: 144/66 RVIDd: 3.0 cm (< 3.3) IVSd: 1.1 cm (0.6 - 1.1) LVIDd: 4.1 cm (3.9 - 5.3) LVPWd: 1.1 cm (0.6 - 1.1) IVSs: 1.7 cm LVIDs: 2.6 cm LVPWs: 1.7 cm Ao Diam: 3.1 cm (2.0 - 3.7) AV Cusp: 1.4 cm (1.5 - 2.6) LA Diam: 3.4 cm (2.7 - 3.8) FINDINGS -------- Resting bradycardia (HR<60bpm). This was a technically good study. Limited Study for assessment of abnormal wall motion. Previous complete study performed on 10-19-18. The left ventricular size is normal. There is borderline concentric left ventricular hypertrophy. Overall left ventricular systolic function is normal with, an EF between 55 - 60 %. No regional wa ll motion abnormalities were noted. CONCLUSIONS -------- 1. Resting bradycardia (HR<60bpm). 2. This was a technically good study. 3. Limited Study for assessment of abnormal wall motion. 4. Previous complete study performed on 10-19-18. 5. The left ventricular size is normal. 6. There is borderline concentric left ventricular hypertrophy. 7. Overall left ventricular systolic function is normal with, an EF between 55 - 60 %. 8. No regional wall motion abnormalities were noted. [employer]ER [employer]SEMBLER: Julian Dave RDCS
[2018-11-15] MEDS: MAGNESIUM SULFATE-D5W PMX 1 GM in DEXTROSE/WATER 1 100ML.BAG IVPB SCH ×2 (13:21→17:00)
--- NOTE | 2018-11-15 14:17 | US ---
EXAMINATION TYPE: US gallbladder DATE OF EXAM: 11/15/2018 COMPARISON: NONE CLINICAL HISTORY: abdominal pain. US Gallbladder. Left chest pain, vomiting. EXAM MEASUREMENTS: Liver Length: 14.4 cm Gallbladder Wall: 0.15 cm CBD: 0.30 cm Right Kidney: 10.2 x 3.8 x 6.0 cm Pancreas:hyperechoic and partially obscured by bowel gas Liver: wnl Gallbladder: small non mobile shadowing stone = 0.3 x 0.4 x 0.3cm seen in neck of gallbladder CBD: wnl Right Kidney: wnl IMPRESSION: Probable gallstone present within the region of the neck of the gallbladder.
[2018-11-15 16:52] LABS: Glucose,Whole Blood 86 mg/dL (75-99)
[2018-11-15 20:24] LABS: Glucose,Whole Blood 83 mg/dL (75-99)
[2018-11-15] MEDS: ATORVASTATIN 80 MG TAB PO SCH (21:22)
[2018-11-15] MEDS: ASPIRIN 81 MG PO SCH (21:24)
[2018-11-16] MEDS: LEVOTHYROXINE 88 MCG TAB PO SCH (05:34)
[2018-11-16 06:43] LABS: Glucose,Whole Blood 109 mg/dL (75-99)
[2018-11-16] MEDS: AMOXIC-POT CLAV 875-125MG 1 EACH TAB PO SCH ×2 (07:27→19:57)
[2018-11-16] MEDS: ASPIRIN 325 MG TAB PO STA (07:27)
[2018-11-16] MEDS: CLOPIDOGREL 75 MG TAB PO SCH (07:27)
[2018-11-16] MEDS: LOSARTAN 50 MG TAB PO SCH (07:27)
[2018-11-16] MEDS: METOPROLOL TARTRATE 50 MG TAB PO SCH ×2 (07:27→19:57)
[2018-11-16] MEDS: VIT A,C & E-LUTEIN-MINERALS 1 EACH TAB PO SCH (07:27)
[2018-11-16] MEDS: amLODIPine 5 MG TAB PO SCH ×2 (07:28→19:56)
[2018-11-16] MEDS: CHOLECALCIFEROL 1,000 UNIT TAB PO SCH (07:28)
[2018-11-16] MEDS ORDERED: LIDOCAINE 1% INJ 10MG/ML (20 ML MDV) ONE (09:07)
[2018-11-16] MEDS ORDERED: fentaNYL (PF) 50 MCG/ML 2 ML AMP ONE (09:08)
[2018-11-16] MEDS ORDERED: NITROGLYCERIN SL TABS 0.4 MG TAB SUBLINGUAL ONE ×4 (09:42→10:08)
[2018-11-16] MEDS ORDERED: MIDAZOLAM 2 MG/2 ML VIAL IVP ONE (09:45)
[2018-11-16] MEDS ORDERED: LIDOCAINE 1% INJ 10MG/ML (20 ML MDV) SQ ONE (09:50)
[2018-11-16] MEDS ORDERED: IV FLUID CONTINUATION 1,000 ML IV ONE (09:53)
[2018-11-16] MEDS: metFORMIN 500 MG TAB PO SCH ×3 (10:19→20:10)
[2018-11-16] MEDS ORDERED: IOPAMIDOL-370 100ML BTL INJ ONE (10:23)
[2018-11-16] MEDS ORDERED: SODIUM CHLORIDE 0.9% 1,000 ML IV SCH (10:30)
[2018-11-16] MEDS: GLIMEPIRIDE 1 MG TAB PO SCH (11:03)
[2018-11-16] MEDS: ALPRAZolam 0.5 MG TAB PO PRN ×2 (11:20→22:25)
--- NOTE | 2018-11-16 11:38 | CC ---
CARDIAC CATHETERIZATION REPORT DATE OF SERVICE: 11/16/2018. PROCEDURE: Coronary angiography. PERFORMED BY: Dr. Khoa Silva. Moderate conscious sedation time was 21 minutes. Patient was given Versed, oxygen saturation, hemodynamics and EKG were monitored closely. PROCEDURE NOTE: Under local anesthesia and strict aseptic precautions, a 6-[place] sheath was placed in the left femoral artery. The patient has somewhat difficult femoral pulses and heavily calcified diffuse disease in the lower extremity arterial system. However, a 6-[place] introducer was placed. Using standard Chiquita catheters, I performed coronary angiography and sheath was taken out and manual compression used to secure hemostasis and a FemoStop was applied at 40 mmHg and it will be on until 2 pm. She was sent to the room in stable condition. CORONARY ANGIOGRAPHY FINDINGS: RIGHT CORONARY ARTERY: Technically a nondominant vessel, small in caliber distribution has minor diffuse disease. No significant disease noted. Very similar to the previous angiogram from 10/19/2018. LEFT MAIN CORONARY ARTERY: A short patent disease-free vessel that bifurcates into LAD and circumflex. LEFT ANTERIOR DESCENDING CORONARY ARTERY: This vessel has previous stents placed in the midportion. There is about a 40% proximal narrowing. The stented segment is widely patent. There is diffuse disease throughout all the way to the apex. The distal 1/4 has a subtotal lesion which is unchanged from before. Overall, there is diffuse disease in the LAD, but the stented segment is patent. LEFT POSTERIOR CIRCUMFLEX CORONARY ARTERY: This is technically a dominant vessel. The ostial site that was stented on 10/19/2018 is widely patent. There is a first obtuse marginal with diffuse disease noted unchanged. The rest of circumflex has minor irregularities no significant disease. Left ventriculogram was not performed. FINAL IMPRESSION: This patient has a widely patent ostial circumflex at the site of previous stenting and also patent left anterior descending artery that was previously stented. She has no other significant disease. There is diffuse disease in the entire left and right system noted, unchanged from before, but the stented segments are widely patent and the right coronary artery is nondominant and diffusely diseased. RECOMMENDATION: Findings were discussed with the patient and family. She will be discharged tomorrow morning if she is stable and ambulatory. I will see her in the office in one week. Continue on medical therapy including dual antiplatelet therapy was advised. Results were discussed with the patient and family. MMODL / IJN: [id number] /
[2018-11-16 11:46] LABS: Glucose,Whole Blood 133 mg/dL (75-99)
[2018-11-16 13:46] LABS: Basophils % (A) 0 %; Eosinophils # (A) 0.2 k/uL (0-0.7); Eosinophils % (A) 3 %; HGB 10.7 gm/dL (11.4-16.0); Lymphocytes # (A) 2.4 k/uL (1.0-4.8); Lymphocytes % (A) 33 %; MCH 29.3 pg (25.0-35.0); MCHC 31.6 g/dL (31.0-37.0); MCV 92.7 fL (80.0-100.0); Mean Platelet Volume 8.8; Monocytes # (A) 0.7 k/uL (0-1.0); Monocytes % (A) 9 %; Neutrophils # (A) 3.9 k/uL (1.3-7.7); Neutrophils % (A) 53 %; Platelet Count 263 k/uL (150-450); RBC 3.67 m/uL (3.80-5.40); RDW 14.1 % (11.5-15.5); WBC 7.4 k/uL (3.8-10.6)
--- NOTE | 2018-11-16 14:47 | P.PN ---
Subjective 83-year-old the female was admitted after possible unstable angina patient underwent cardiac catheterization which did not show any significant ather osclerotic coronary occlusive disease that need stenting. Patient had a mild hematoma because of which patient will be monitored overnight here. Constitutional: Denied any fatigue denied any fever. Cardio vascular: denied any chest pain, palpitations Gastrointestinal denied any nausea vomiting Pulmonary: Denied any shortness of breath cough Neurologic denied any new focal deficits All inpatient medications were reviewed and appropriate changes in these medications as dictated in the interval history and assessment and plan. Objective - Vital Signs Vital signs: Vital Signs Temp 97.8 F 11/16/18 10:50 Pulse 64 11/16/18 13:35 Resp 18 11/16/18 12:00 BP 146/66 11/16/18 13:35 Pulse Ox 97 11/16/18 13:35 Intake & Output 11/15/18 11/16/18 11/16/18 18:59 06:59 18:59 Intake Total 240 1060 Balance 240 1060 Intake: IV 100 Oral 240 960 Other: Voiding Method Toilet Toilet Toilet # Voids 1 2 0 - Exam PHYSICAL EXAMINATION: GENERAL: The patient is alert and oriented x3, not in any acute distress. Well developed, well nourished. HEENT: Pupils are round and equally reacting to light. EOMI. No scleral icterus. No conjunctival pallor. Normocephalic, atraumatic. No pharyngeal erythema. No thyromegaly. CARDIOVASCULAR: S1 and S2 present. No murmurs, rubs, or gallops. PULMONARY: Chest is clear to auscultation, no wheezing or crackles. ABDOMEN: Soft, nontender, nondistended, normoactive bowel sounds. No palpable organomegaly. MUSCULOSKELETAL: No joint swelling or deformity. Right groin hematoma EXTREMITIES: No cyanosis, clubbing, or pedal edema. NEUROLOGICAL: Gross neurological examination did not reveal any focal deficits. SKIN: No rashes. - Labs CBC & Chem 7: 11/16/18 05:56 11/14/18 05:15 Labs: Abnormal Lab Results - Last 24 Hours (Table) 11/16/18 11/16/18 11/16/18 Range/Units 05:56 06:41 11:45 RBC 3.67 L (3.80-5.40) m/uL Hgb 10.7 L (11.4-16.0) gm/dL POC Glucose (mg/dL) 109 H 133 H (75-99) mg/dL Assessment and Plan Plan: -Chest pain rule out acute coronary syndromes status post cardiac catheterization and results as mentioned above no stenting at this time - history of coronary artery disease post-multivessel PCI in the past- hypertension \ -dyslipidemia - type 2 diabetes mellitus -Postoperative right groin hematoma -Hypertension -Hypothyroidism -mild cholelithiasis: General surgery was consulted and I'm not anticipating any intervention at this time no evidence of cholecystitis at this time Continue his present medications, patient will be monitored overnight for any worsening of right groin hematoma. Patient is on Augmentin not sure the reason for being on Augmentin
--- NOTE | 2018-11-16 14:52 | P.GSCN ---
History of Present Illness Consult date: 11/16/18 History of present illness: This is a 83-year-old female with a significant past medical history and cardiac history. She has experienced some chest pain at home and was admitted for cardiac evaluation she just underwent cardiac catheterization today. She's had multiple interventions in the past year. She denies any history of right upper quadrant abdominal pain. She denies any postprandial pain. She denies any nausea and vomiting at this time. She denies any past abdominal surgical history. On her workup there was an ultrasound which showed a possible galls tone in the neck of the gallbladder. Past Medical History Past Medical History: Coronary Artery Disease (CAD), CVA/TIA, Diabetes Mellitus, Eye Disorder, GERD/Reflux, Hearing Disorder / Deafness, Hyperlipidemia, Hypertension, Myocardial Infarction (ND), Osteoarthritis (OA), Thyroid Disorder Additional Past Medical History / Comment(s): PT RECENTLY ADMITTED TO [facility] ON 11/08/18 WITH HYPONATREMIA/FACIAL CELLULITIS/DENTAL CARIES. 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 Last Myocardial Infarction Date:: 04/2018 History of Any Multi-Drug Resistant Organisms: None Reported Past Surgical History: Back Surgery, Breast Surgery, Heart Catheterization With Stent, Hysterectomy, Orthopedic Surgery, Tubal Ligation Additional Past Surgical History / Comment(s): PCI with a total of 7 stents, low back surgery, L breast benign bx, R rotator cuff repair, R eye cataract removed, multiple bilateral laser eye surgeries, bilateral eye stents-R one fell out, thyroidectomy d/t nodules, temporal artery bx, cervical and lumbar injections. Past Anesthesia/Blood Transfusion Reactions: Previous Problems w/ Anesthesia Additional Past Anesthesia/Blood Transfusion Reaction / Comm: hard to wake up Date of Last Stent Placement:: 10/22/18 Smoking Status: Never smoker - Past Family History Mother Family Medical History: Myocardial Infarction (ND) Additional Family Medical History / Comment(s): MOTHER OF A ND AT THE AGE OF 57YRS. Brother(s) Family Medical History: Myocardial Infarction (ND) Additional Family Medical History / Comment(s): BROTHER OF A ND AT THE AGE OF 60YRS. Father Family Medical History: No Reported History Additional Family Medical History / Comment(s): FATHER LIVED TO BE 90YRS OLD. Medications and Allergies Home Medications Medication Instructions Recorded Confirmed Type Aspirin 81 mg PO HS 01/21/14 11/14/18 History Clopidogrel [Plavix] 75 mg PO DAILY 01/21/14 11/14/18 History Metoprolol Tartrate [Lopressor] 50 mg PO BID 01/21/14 11/14/18 History Cholecalciferol [Vitamin D3] 1,000 unit PO DAILY 05/03/16 11/14/18 History Vits A,C,E/Lutein/Minerals 2 tab PO DAILY 05/03/16 11/14/18 History [Ocuvite with Lutein Tablet] Levothyroxine Sodium [Synthroid] 88 mcg PO DAILY 05/31/17 11/14/18 History ALPRAZolam [Xanax] 0.25 mg PO DAILY PRN #30 06/05/17 11/14/18 Rx Glimepiride [Amaryl] 1 mg PO AC-BRKFST 04/28/18 11/14/18 History metFORMIN HCL [Glucophage] 500 mg PO BID 04/28/18 11/14/18 History Acetaminophen Tab [Tylenol] 500 mg PO Q6HR PRN tab 05/01/18 11/14/18 Rx Acetaminophen with Codeine 1 tab PO Q6H PRN 09/25/18 11/14/18 History [Tylenol w/codeine #3] Atorvastatin [Lipitor] 80 mg PO HS 10/18/18 11/14/18 History Losartan [Cozaar] 100 mg PO DAILY #30 tab 10/21/18 11/14/18 Rx Nitroglycerin Sl Tabs [Nitrostat] 0.4 mg SUBLINGUAL Q5M PRN #25 tab 10/21/18 11/14/18 Rx amLODIPine [Norvasc] 5 mg PO BID #60 tab 10/21/18 11/14/18 Rx Amoxic-Pot Clav 875-125Mg 1 tab PO Q12HR 7 Days #14 tablet 11/12/18 11/14/18 Rx [Augmentin 875-125] Allergies Allergy/AdvReac Type Severity Reaction Status Date / Time PAPER TAPE Allergy Unknown Rash/Hives Uncoded 11/14/18 07:16 Surgical - Exam Osteopathic Statement: *. No significant issues noted on an osteopathic structural exam other than those noted in the History and Physical/Consult. Vital Signs Temp Pulse Resp BP Pulse Ox 97.5 F L 79 18 163/73 100 11/14/18 05:14 11/14/18 05:14 11/14/18 05:14 11/14/18 05:14 11/14/18 05:14 - General well developed, well nourished, no distress - Neck no masses, trachea midline - Respiratory normal expansion, normal respiratory effort - Abdomen No pain to palpation in the right upper quadrant negative Pop sign no rebound rigidity or guarding Abdomen: soft, non tender - Integumentary no rash - Neurologic normal coordination, normal sensation - Psychiatric oriented to time, oriented to person, oriented to place Results - Labs 11/16/18 05:56 11/14/18 05:15 Abnormal Lab Results - Last 24 Hours (Table) 11/16/18 11/16/18 11/16/18 Range/Units 05:56 06:41 11:45 RBC 3.67 L (3.80-5.40) m/uL Hgb 10.7 L (11.4-16.0) gm/dL POC Glucose (mg/dL) 109 H 133 H (75-99) mg/dL Assessment and Plan Assessment: Cholelithiasis Plan: Patient does not appear to have cholecystitis at this time. If she does develop symptomatic cholelithiasis she may follow-up as an outpatient once cleared by cardiology. No plans for surgical intervention at this time. Taking for allowing me to participate in this patient's care
[2018-11-16 16:53] LABS: Glucose,Whole Blood 125 mg/dL (75-99)
[2018-11-16] MEDS: ATORVASTATIN 80 MG TAB PO SCH (19:56)
[2018-11-16] MEDS: ASPIRIN 81 MG PO SCH (19:57)
[2018-11-16 20:04] LABS: Glucose,Whole Blood 192 mg/dL (75-99)
[2018-11-17] MEDS: LEVOTHYROXINE 88 MCG TAB PO SCH (05:43)
[2018-11-17 06:42] LABS: Glucose,Whole Blood 139 mg/dL (75-99)
[2018-11-17 06:52] LABS: Basophils % (A) 0 %; Eosinophils # (A) 0.2 k/uL (0-0.7); Eosinophils % (A) 3 %; HCT 31.4 % (34.0-46.0); HGB 10.3 gm/dL (11.4-16.0); Lymphocytes # (A) 1.6 k/uL (1.0-4.8); Lymphocytes % (A) 21 %; MCH 29.5 pg (25.0-35.0); MCHC 32.6 g/dL (31.0-37.0); MCV 90.3 fL (80.0-100.0); Monocytes # (A) 0.7 k/uL (0-1.0); Monocytes % (A) 9 %; Neutrophils % (A) 65 %; Platelet Count 251 k/uL (150-450); RBC 3.48 m/uL (3.80-5.40); RDW 13.9 % (11.5-15.5); WBC 7.7 k/uL (3.8-10.6)
[2018-11-17 07:07] LABS: ALT 32 U/L (9-52); AST 16 U/L (14-36); Albumin 3.2 g/dL (3.5-5.0); Alkaline Phosphatase 87 U/L (38-126); Anion Gap 6 mmol/L; Blood Urea Nitrogen 14 mg/dL (7-17); Calcium 8.2 mg/dL (8.4-10.2); Carbon Dioxide 24 mmol/L (22-30); Chloride 101 mmol/L (98-107); Glucose 128 mg/dL (74-99); Potassium 4.5 mmol/L (3.5-5.1); Sodium 131 mmol/L (137-145); Total Bilirubin 0.7 mg/dL (0.2-1.3); Total Protein 5.5 g/dL (6.3-8.2)
[2018-11-17 08:01] VITALS: RESP 16
[2018-11-17] MEDS: CHOLECALCIFEROL 1,000 UNIT TAB PO SCH (08:07)
[2018-11-17] MEDS: LOSARTAN 50 MG TAB PO SCH (08:07)
[2018-11-17] MEDS: CLOPIDOGREL 75 MG TAB PO SCH (08:07)
[2018-11-17] MEDS: METOPROLOL TARTRATE 50 MG TAB PO SCH (08:08)
[2018-11-17] MEDS: AMOXIC-POT CLAV 875-125MG 1 EACH TAB PO SCH (08:08)
[2018-11-17] MEDS: GLIMEPIRIDE 1 MG TAB PO SCH (08:08)
[2018-11-17] MEDS: amLODIPine 5 MG TAB PO SCH (08:08)
[2018-11-17] MEDS: VIT A,C & E-LUTEIN-MINERALS 1 EACH TAB PO SCH (08:08)
[2018-11-17] MEDS: metFORMIN 500 MG TAB PO SCH (08:10)
--- NOTE | 2018-11-17 09:23 | P.PN ---
Subjective This is a pleasant 83-year-old female past medical history significant for coronary artery disease status post stent placement to the ostial circumflex in September of this year, dyslipidemia, hypertension, diabetes mellitus and hypothyroidism. She follows in the office with Dr. Silva. Mrs. Brewster underwent cardiac catheterization yesterday revealing a widely patent ostial circumflex at the site of previous stenting, patent LAD at the site of previous stenting, no other significant disease noted. She does have diffuse disease. Her left and right system that is unchanged from previous. She is seen and examined sitting up eating breakfast with her son at the bedside. She denies any further symptoms of chest discomfort. Laboratory data reviewed, WBC 7.7, hemoglobin 10.3, platelets 251, sodium 131, potassium 4.5, creatinine 0.62. Blood pressure 147/72 heart rate 71 afebrile maintaining oxygen saturation on room air. Currently maintained on amlodipine 5 mg twice a day, aspirin 81 mg daily, atorvastatin 80 mg daily, Plavix 75 mg daily, losartan 100 mg daily, metoprolol 50 mg twice a day. She has also been seen in consultation by surgical services secondary to possible gallstone. There is no plans for surgical intervention at this time. Outpatient follow-up recommended. GENERAL: This is a 83-year-old female in no apparent distress at the time of my examination. HEENT: Head is atraumatic, normocephalic. Pupils are equal, round. Sclerae anicteric. Conjunctivae are clear. Mucous membranes of the mouth are moist. Neck is supple. There is no jugular venous distention. No carotid bruit is heard. LUNGS: Clear to auscultation no wheezes, rales or rhonchi. No chest wall tenderness is noted on palpation or with deep breathing. HEART: Regular rate and rhythm with systolic ejection murmur at the base, no rubs or gallops. S1 and S2 heard. EXTREMITIES: No evidence of peripheral edema and no calf tenderness noted. Small hematoma noted to the left groin, no active bleeding, no bruit, no edema. ASSESSMENT Unstable angina. An acute coronary event has been ruled out with negative cardiac enzymes. She has nonspecific ST changes noted on the EKG. cardiac catheterization revealed no progression of disease with patent stents. Hypomagnesemia, resolved History of coronary artery disease status post multivessel PCI Hypertension Dyslipidemia Diabetes mellitus PLAN Stable from a cardiac perspective for discharge home. Outpatient appointment hazard been set up to see Dr. Silva in one week. Cardiac catheterization findings as well as plan moving forward has been discussed in great detail with the patient and her son. Questions have been answered appropriately. Nurse Practitioner note has been reviewed, I agree with a documented findings and plan of care. Patient was seen and examined. Objective - Vital Signs Vital signs: Vital Signs Temp 97.6 F 11/17/18 08:00 Pulse 71 11/17/18 08:00 Resp 16 11/17/18 08:00 BP 147/72 11/17/18 08:00 Pulse Ox 98 11/17/18 08:00 Intake & Output 11/16/18 11/17/18 11/17/18 18:59 06:59 18:59 Intake Total 1480 700 Balance 1480 700 Intake: IV 100 Oral 1380 700 Other: Voiding Method Toilet Toilet Toilet # Voids 1 1 1 - Labs CBC & Chem 7: 11/17/18 06:28 11/17/18 06:28 Labs: Abnormal Lab Results - Last 24 Hours (Table) 11/16/18 11/16/18 11/16/18 Range/Units 05:56 11:45 16:50 RBC 3.67 L (3.80-5.40) m/uL Hgb 10.7 L (11.4-16.0) gm/dL Hct (34.0-46.0) % Sodium (137-145) mmol/L Glucose (74-99) mg/dL POC Glucose (mg/dL) 133 H 125 H (75-99) mg/dL Calcium (8.4-10.2) mg/dL Total Protein (6.3-8.2) g/dL Albumin (3.5-5.0) g/dL 11/16/18 11/17/18 11/17/18 Range/Units 20:01 06:28 06:28 RBC 3.48 L (3.80-5.40) m/uL Hgb 10.3 L (11.4-16.0) gm/dL Hct 31.4 L (34.0-46.0) % Sodium 131 L (137-145) mmol/L Glucose 128 H (74-99) mg/dL POC Glucose (mg/dL) 192 H (75-99) mg/dL Calcium 8.2 L (8.4-10.2) mg/dL Total Protein 5.5 L (6.3-8.2) g/dL Albumin 3.2 L (3.5-5.0) g/dL 11/17/18 Range/Units 06:41 RBC (3.80-5.40) m/uL Hgb (11.4-16.0) gm/dL Hct (34.0-46.0) % Sodium (137-145) mmol/L Glucose (74-99) mg/dL POC Glucose (mg/dL) 139 H (75-99) mg/dL Calcium (8.4-10.2) mg/dL Total Protein (6.3-8.2) g/dL Albumin (3.5-5.0) g/dL
[2018-11-17 11:43] LABS: Glucose,Whole Blood 174 mg/dL (75-99)
[2018-11-17 12:05] VITALS: BP 120/69; PULSE 65; TEMP 98.1
--- NOTE | 2018-11-17 12:48 | P.DS ---
Providers Date of admission: 11/16/18 14:29 Attending physician: Anthony Cameron Consults: 11/14/18 07:21 Consult Physician Urgent Consulting Provider: [facility] Consult Reason/Comments: chest pain - hx CAD stent x7 Do you want consulting provider notified?: Yes 11/16/18 11:33 Consult Physician Routine Consulting Provider: Anthony Lopez Consult Reason/Comments: gallstones Do you want consulting provider notified?: Yes Primary care physician: Anthony Cameron Hospital Course: -Chest pain rule out acute coronary syndromes status post cardiac catheterization and results as mentioned above no stenting at this time - history of coronary artery disease post-multivessel PCI in the past- hypertension - hematoma of the left groin, secondary to cardiac cath. stable on Improving - dyslipidemia - type 2 diabetes mellitus - Hypertension - Hypothyroidism - gallbladder neck stone: General surgery was consulted decreased patient for discharge. Patient is asymptomatic - History of tooth infection, patient is on Augmentin Hospital course this is a pleasant 83 years old female with past medical history of coronary artery disease, hypertension, diabetes mellitus, hypothyroidism, tooth i nfection. Presents because of chest pain. Chest pain has been completely resolved now. Patient denies any other symptoms. No dyspnea or abdominal pain. She tolerating diet well and she has normal bowel movement. Cardiology evaluated the patient and she had cardiac cath. revealing a widely patent ostial circumflex at the site of previous stenting, patent LAD at the site of previous stenting, no other significant disease noted. patient has been cleared by cardiology team for discharge. Patient feels she is back to her baseline and she wants to go home today. At baseline she was using her walker. Problems and management plan were discussed with the patient and she verbalized understanding and acceptance Patient was found stable and can be discharged from guarded prognosis, however she needs follow-up as an outpatientcreatinine she has an appointment on this coming Monday with her dianeticist which she agrees on. Patient was instructed to follow up with her PCP and surgery in one week and she agrees. Patient she will smoker on appointments as today is weekend Gen: patient is a AAOx3, no distress CVS: S1-S2, RRR, no murmur Lungs: B/L CTA, no wheezing Abdomen: soft, no distention, no tenderness, positive bowel sounds. Left groin hematoma, puncture wound is closed and healing. No cellulitis or swollen Extremity: no leg edema or induration Time spent more than 35 minutes Patient Condition at Discharge: Stable Plan - Discharge Summary Discharge Rx Participant: No New Discharge Prescriptions: Continue Aspirin 81 mg PO HS Metoprolol Tartrate [Lopressor] 50 mg PO BID Clopidogrel [Plavix] 75 mg PO DAILY Vits A,C,E/Lutein/Minerals [Ocuvite with Lutein Tablet] 2 tab PO DAILY Cholecalciferol [Vitamin D3] 1,000 unit PO DAILY Levothyroxine Sodium [Synthroid] 88 mcg PO DAILY ALPRAZolam [Xanax] 0.25 mg PO DAILY PRN #30 PRN Reason: Anxiety metFORMIN HCL [Glucophage] 500 mg PO BID Glimepiride [Amaryl] 1 mg PO AC-BRKFST Acetaminophen Tab [Tylenol] 500 mg PO Q6HR PRN tab PRN Reason: Fever And/ Or Pain Acetaminophen with Codeine [Tylenol w/codeine #3] 1 tab PO Q6H PRN PRN Reason: Pain Atorvastatin [Lipitor] 80 mg PO HS amLODIPine [Norvasc] 5 mg PO BID #60 tab Losartan [Cozaar] 100 mg PO DAILY #30 tab Nitroglycerin Sl Tabs [Nitrostat] 0.4 mg SUBLINGUAL Q5M PRN #25 tab PRN Reason: Chest Pain Amoxic-Pot Clav 875-125Mg [Augmentin 875-125] 1 tab PO Q12HR 3 Days #6 tablet Discharge Medication List Aspirin 81 mg PO HS 01/21/14 [History] Clopidogrel [Plavix] 75 mg PO DAILY 01/21/14 [History] Metoprolol Tartrate [Lopressor] 50 mg PO BID 01/21/14 [History] Cholecalciferol [Vitamin D3] 1,000 unit PO DAILY 05/03/16 [History] Vits A,C,E/Lutein/Minerals [Ocuvite with Lutein Tablet] 2 tab PO DAILY 05/03/16 [History] Levothyroxine Sodium [Synthroid] 88 mcg PO DAILY 05/31/17 [History] ALPRAZolam [Xanax] 0.25 mg PO DAILY PRN #30 06/05/17 [Rx] Glimepiride [Amaryl] 1 mg PO AC-BRKFST 04/28/18 [History] metFORMIN HCL [Glucophage] 500 mg PO BID 04/28/18 [History] Acetaminophen Tab [Tylenol] 500 mg PO Q6HR PRN tab 05/01/18 [Rx] Acetaminophen with Codeine [Tylenol w/codeine #3] 1 tab PO Q6H PRN 09/25/18 [History] Atorvastatin [Lipitor] 80 mg PO HS 10/18/18 [History] Losartan [Cozaar] 100 mg PO DAILY #30 tab 10/21/18 [Rx] Nitroglycerin Sl Tabs [Nitrostat] 0.4 mg SUBLINGUAL Q5M PRN #25 tab 10/21/18 [Rx] amLODIPine [Norvasc] 5 mg PO BID #60 tab 10/21/18 [Rx] Amoxic-Pot Clav 875-125Mg [Augmentin 875-125] 1 tab PO Q12HR 3 Days #6 tablet 11/17/18 [Rx] Follow up Appointment(s)/Referral(s): Anthony Cameron MD [Primary Care Provider] - 1-2 days Anthony Lopez DO [Doctor of Osteopathic Medicine] - 2 Weeks (surgery , gall stone) Les Silva MD [STAFF PHYSICIAN] - 11/20/18 3:15 pm (Appointment made for MondayNovember 20 @ 3:15pm.) Patient Instructions/Handouts: Chest Pain (DC), Heart Catheterization (DC) Activity/Diet/Wound Care/Special Instructions: CARDIAC DIET activity is limited till you see your doctor Discharge Disposition: HOME SELF-CARE
--- NOTE | 2018-11-20 10:41 | CDI ---
Documentation Clarification Form Date: 11/20/18 From: Eli Spence Phone: If you have a question regarding this query, please contact Brenda Harding at [phone] between 8am and 5pm. Admit Date: 11/16/2018 2:29:00 PM Patient Name: Praveena Brewster Visit Number: [id number] Discharge Date: 11/17/2018 12:59:00 PM ATTENTION: The Clinical Documentation Specialists (CDI) and [facility] Coding Staff appreciate your assistance in clarifying documentation. Please respond to the clarification below the line at the bottom and electronically sign. The CDI & [facility] Coding staff will review the response and follow-up if needed. Please note: Queries are made part of the Legal Health Record. If you have any questions, please contact the author of this message via ITS. Dr. Powell Sheet Conflicting documentation has been found in the medical record: Chest pain rule out acute coronary syndromes is documented as final diagnosis in the discharge summary. Unstable angina is documented in the cardiology progress note on 11/17. History/Risk Factors: Patient was admitted for unstable angina. The patient has a history of previous VT, CAD with previous stenting, DM and hyperlipidemia. Clinical Indicators: Chest pain Cardiac Cath: Widely patent ostial circumflex at the siter of previous stenting and also patent left anterior descending artery that was previously stented. She has no other significant disease. There is diffuse disease in the entire left and right system noted, unchanged from before, but the stented segments are widely patent and the right coronary artery is nondominant and diffusely diseased. Treatment: Continue on medical therapy. In your opinion, what is the most clinically appropriate diagnosis for this patient? Unstable angina Chest pain Other explanation of clinical findings Unable to determine (no explanation for clinical findings) as documented by cardiology MTDD
== END 2018-11-17 12:59 | disposition home or self-care (01) | DRG 287 ==
LOC: EC 05:11 → 1SOBS 07:05 → OBSVTOIN 11-16 14:29
PROVIDERS: ADMIT Family Medicine; ATTEND Family Medicine
PROC: B2111ZZ Fluoroscopy of Multiple Coronary Arteries using Low Osmolar Contrast (ICD-10-PCS; principal; 2018-11-16 09:30)
DX: I25.110 Atherosclerotic heart disease of native coronary artery with unstable angina pectoris (principal); E11.9 Type 2 diabetes mellitus without complications; E78.5 Hyperlipidemia, unspecified; E83.42 Hypomagnesemia; E89.0 Postprocedural hypothyroidism; H35.30 Unspecified macular degeneration; H91.90 Unspecified hearing loss, unspecified ear; I10 Essential (primary) hypertension; I25.2 Old myocardial infarction; I34.0 Nonrheumatic mitral (valve) insufficiency; I45.10 Unspecified right bundle-branch block; K21.9 Gastro-esophageal reflux disease without esophagitis; K80.20 Calculus of gallbladder without cholecystitis without obstruction; M15.9 Polyosteoarthritis, unspecified; M47.9 Spondylosis, unspecified; F41.9 Anxiety disorder, unspecified; G43.909 Migraine, unspecified, not intractable, without status migrainosus; K44.9 Diaphragmatic hernia without obstruction or gangrene; M79.81 Nontraumatic hematoma of soft tissue; I69.998 Other sequelae following unspecified cerebrovascular disease; H54.8 Legal blindness, as defined in USA; E66.9 Obesity, unspecified; Z68.32 Body mass index [BMI] 32.0-32.9, adult; Z79.02 Long term (current) use of antithrombotics/antiplatelets; Z79.82 Long term (current) use of aspirin; Z79.84 Long term (current) use of oral hypoglycemic drugs; Z79.890 Hormone replacement therapy; Z79.899 Other long term (current) drug therapy; Z90.710 Acquired absence of both cervix and uterus; Z95.5 Presence of coronary angioplasty implant and graft; Z98.51 Tubal ligation status; Z98.41 Cataract extraction status, right eye; Z96.1 Presence of intraocular lens; Z82.49 Family history of ischemic heart disease and other diseases of the circulatory system
CPT/HCPCS: 36415; 71046; 76705; 80053; 83735; 84484; 85025; 85610; 85730; 93308; 93454; 96365; 96366; 99285

== ENCOUNTER 2018-12-21 14:34 | Observation (INO) | payer MEDICARE, BC ==
[2018-12-21] MEDS ORDERED: NITROGLYCERIN SL TABS 0.4 MG TAB SUBLINGUAL STA ×3 (14:56)
[2018-12-21] MEDS ORDERED: ASPIRIN 81 MG PO STA (14:56)
--- NOTE | 2018-12-21 14:59 | ED ---
General Adult HPI - General Chief complaint: Chest Pain Stated complaint: Chest pain Time Seen by Provider: 12/21/18 14:50 Source: patient, RN notes reviewed Mode of arrival: ambulatory Limitations: no limitations - History of Present Illness Initial comments: Patient is a pleasant 83-year-old female presenting to the emergency Department with chest discomfort. Onset of symptoms was just a half hour ago. Discomfort has been waxing and waning however is somewhat severe at this point. Symptoms did improve with some of her own nitroglycerin. Patient has some associated sweating. No nausea. No dyspnea. Symptoms are somewhat similar to previous heart attack that she has had. Discomfort is described as heaviness. No radiation. - Related Data Home Medications Medication Instructions Recorded Confirmed Aspirin 81 mg PO HS 01/21/14 12/21/18 Clopidogrel [Plavix] 75 mg PO DAILY 01/21/14 12/21/18 Metoprolol Tartrate [Lopressor] 50 mg PO BID 01/21/14 12/21/18 Cholecalciferol [Vitamin D3] 1,000 unit PO DAILY 05/03/16 12/21/18 Vits A,C,E/Lutein/Minerals 2 tab PO DAILY 05/03/16 12/21/18 [Ocuvite with Lutein Tablet] Levothyroxine Sodium [Synthroid] 88 mcg PO DAILY 05/31/17 12/21/18 Glimepiride [Amaryl] 1 mg PO AC-BRKFST 04/28/18 12/21/18 metFORMIN HCL [Glucophage] 500 mg PO BID 04/28/18 12/21/18 Acetaminophen with Codeine 1 tab PO Q6H PRN 09/25/18 12/21/18 [Tylenol w/codeine #3] Atorvastatin [Lipitor] 80 mg PO HS 10/18/18 12/21/18 Previous Rx's Medication Instructions Recorded ALPRAZolam [Xanax] 0.25 mg PO DAILY PRN #30 06/05/17 Acetaminophen Tab [Tylenol] 500 mg PO Q6HR PRN tab 05/01/18 Losartan [Cozaar] 100 mg PO DAILY #30 tab 10/21/18 Nitroglycerin Sl Tabs [Nitrostat] 0.4 mg SUBLINGUAL Q5M PRN #25 tab 10/21/18 amLODIPine [Norvasc] 5 mg PO BID #60 tab 10/21/18 Allergies Allergy/AdvReac Type Severity Reaction Status Date / Time PAPER TAPE Allergy Unknown Rash/Hives Uncoded 12/21/18 15:15 Review of Systems ROS Statement: Those systems with pertinent positive or pertinent negative responses have been documented in the HPI. ROS Other: All systems not noted in ROS Statement are negative. Constitutional: Denies: fever Eyes: Denies: eye pain ENT: Denies: ear pain Respiratory: Denies: cough, dyspnea Cardiovascular: Reports: chest pain Endocrine: Denies: fatigue Gastrointestinal: Denies: abdominal pain Genitourinary: Denies: dysuria Musculoskeletal: Denies: back pain Skin: Denies: rash Neurological: Denies: weakness Past Medical History Past Medical History: Coronary Artery Disease (CAD), CVA/TIA, Diabetes Mellitus, Eye Disorder, GERD/Reflux, Hearing Disorder / Deafness, Hyperlipidemia, Hypertension, Myocardial Infarction (ND), Osteoarthritis (OA), Thyroid Disorder Additional Past Medical History / Comment(s): PT RECENTLY ADMITTED TO [facility] ON 11/08/18 WITH HYPONATREMIA/FACIAL CELLULITIS/DENTAL CARIES. 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 Last Myocardial Infarction Date:: 04/2018 History of Any Multi-Drug Resistant Organisms: None Reported Past Surgical History: Back Surgery, Breast Surgery, Heart Catheterization With Stent, Hysterectomy, Orthopedic Surgery, Tubal Ligation Additional Past Surgical History / Comment(s): PCI with a total of 7 stents, low back surgery, L breast benign bx, R rotator cuff repair, R eye cataract removed, multiple bilateral laser eye surgeries, bilateral eye stents-R one fell out, thyroidectomy d/t nodules, temporal artery bx, cervical and lumbar injections. Past Anesthesia/Blood Transfusion Reactions: Previous Problems w/ Anesthesia Additional Past Anesthesia/Blood Transfusion Reaction / Comment(s): hard to wake up Date of Last Stent Placement:: 10/22/18 Past Psychological History: Anxiety Smoking Status: Never smoker Past Alcohol Use History: None Reported Past Drug Use History: None Reported - Past Family History Mother Family Medical History: Myocardial Infarction (ND) Additional Family Medical History / Comment(s): MOTHER OF A ND AT THE AGE OF 57YRS. Brother(s) Family Medical History: Myocardial Infarction (ND) Additional Family Medical History / Comment(s): BROTHER OF A ND AT THE AGE OF 60YRS. Father Family Medical History: No Reported History Additional Family Medical History / Comment(s): FATHER LIVED TO BE 90YRS OLD. General Exam Limitations: no limitations General appearance: alert, other (Patient does appear uncomfortable) Head exam: Present: normocephalic Eye exam: Present: normal appearance, PERRL ENT exam: Present: normal oropharynx Neck exam: Present: normal inspection Respiratory exam: Present: normal lung sounds bilaterally. Absent: chest wall tenderness Cardiovascular Exam: Present: regular rate, normal rhythm Expanded Peripheral pulses: 2+: Radial (R), Radial (L), Posterior Tibialis (R), Posterior Tibialis (L) GI/Abdominal exam: Present: soft. Absent: tenderness Extremities exam: Present: pedal edema (+1 bilateral which patient states is chronic). Absent: calf tenderness Neurological exam: Present: alert Psychiatric exam: Present: normal affect, normal mood Skin exam: Present: normal color Course Vital Signs 12/21/18 12/21/18 12/21/18 14:39 14:40 14:50 Temperature 97.4 F L Pulse Rate 87 67 Pulse Rate [ 61 Product Test Specialist ] Respiratory 22 18 Rate Blood Pressure 137/67 128/75 O2 Sat by Pulse 97 96 Oximetry 12/21/18 12/21/18 15:12 16:02 Temperature Pulse Rate 68 64 Pulse Rate [ Product Test Specialist ] Respiratory 16 18 Rate Blood Pressure 108/58 125/78 O2 Sat by Pulse 98 98 Oximetry EKG Findings - EKG Comments: EKG Findings:: Normal sinus rhythm at 63. TN 188. QRS 120. QT 440. QTc 450. Normal axis. Right bundle branch block. No acute ST change. Medical Decision Making - Medical Decision Making Patient was reevaluated and symptom-free following sublingual nitroglycerin. Patient family updated on results and plan. Case was discussed in detail with Dr. Zayas, covering for Dr. Cameron, who will admit. - Lab Data Result diagrams: 12/21/18 15:09 12/21/18 15:09 Lab Results 12/21/18 12/21/18 12/21/18 Range/Units 15:09 15:09 15:09 WBC 6.7 (3.8-10.6) k/uL RBC 4.08 (3.80-5.40) m/uL Hgb 12.6 (11.4-16.0) gm/dL Hct 37.0 (34.0-46.0) % MCV 90.6 (80.0-100.0) fL MCH 30.9 (25.0-35.0) pg MCHC 34.1 (31.0-37.0) g/dL RDW 13.2 (11.5-15.5) % Plt Count 303 (150-450) k/uL Neutrophils % 54 % Lymphocytes % 35 % Monocytes % 6 % Eosinophils % 2 % Basophils % 0 % Neutrophils # 3.7 (1.3-7.7) k/uL Lymphocytes # 2.3 (1.0-4.8) k/uL Monocytes # 0.4 (0-1.0) k/uL Eosinophils # 0.1 (0-0.7) k/uL Basophils # 0.0 (0-0.2) k/uL PT 10.0 (9.0-12.0) sec INR 0.9 (<1.2) APTT 25.6 (22.0-30.0) sec Sodium 134 L (137-145) mmol/L Potassium 4.0 (3.5-5.1) mmol/L Chloride 96 L (98-107) mmol/L Carbon Dioxide 24 (22-30) mmol/L Anion Gap 14 mmol/L BUN 13 (7-17) mg/dL Creatinine 0.75 (0.52-1.04) mg/dL Est GFR (CKD-EPI)AfAm 84 (>60 ml/min/1.73 sqM) Est GFR (CKD-EPI)NonAf 73 (>60 ml/min/1.73 sqM) Glucose 83 (74-99) mg/dL Calcium 8.9 (8.4-10.2) mg/dL Magnesium 1.7 (1.6-2.3) mg/dL Total Bilirubin 0.4 (0.2-1.3) mg/dL AST 21 (14-36) U/L ALT 25 (9-52) U/L Alkaline Phosphatase 94 (38-126) U/L Creatine Kinase 133 (30-135) U/L Troponin I (0.000-0.034) ng/mL Total Protein 6.9 (6.3-8.2) g/dL Albumin 4.4 (3.5-5.0) g/dL 12/21/18 Range/Units 15:09 WBC (3.8-10.6) k/uL RBC (3.80-5.40) m/uL Hgb (11.4-16.0) gm/dL Hct (34.0-46.0) % MCV (80.0-100.0) fL MCH (25.0-35.0) pg MCHC (31.0-37.0) g/dL RDW (11.5-15.5) % Plt Count (150-450) k/uL Neutrophils % % Lymphocytes % % Monocytes % % Eosinophils % % Basophils % % Neutrophils # (1.3-7.7) k/uL Lymphocytes # (1.0-4.8) k/uL Monocytes # (0-1.0) k/uL Eosinophils # (0-0.7) k/uL Basophils # (0-0.2) k/uL PT (9.0-12.0) sec INR (<1.2) APTT (22.0-30.0) sec Sodium (137-145) mmol/L Potassium (3.5-5.1) mmol/L Chloride (98-107) mmol/L Carbon Dioxide (22-30) mmol/L Anion Gap mmol/L BUN (7-17) mg/dL Creatinine (0.52-1.04) mg/dL Est GFR (CKD-EPI)AfAm (>60 ml/min/1.73 sqM) Est GFR (CKD-EPI)NonAf (>60 ml/min/1.73 sqM) Glucose (74-99) mg/dL Calcium (8.4-10.2) mg/dL Magnesium (1.6-2.3) mg/dL Total Bilirubin (0.2-1.3) mg/dL AST (14-36) U/L ALT (9-52) U/L Alkaline Phosphatase (38-126) U/L Creatine Kinase (30-135) U/L Troponin I <0.012 (0.000-0.034) ng/mL Total Protein (6.3-8.2) g/dL Albumin (3.5-5.0) g/dL - Radiology Data Radiology results: image reviewed (Chest x-ray shows no acute process) Disposition Clinical Impression: Chest pain Disposition: ADMITTED IP TO THIS HOSP Is patient prescribed a controlled substance at d/c from ED?: No Referrals: Anthony Cameron MD [Primary Care Provider] - 1-2 days Decision Time: 17:02
[2018-12-21 15:20] LABS: Basophils % (A) 0 %; Eosinophils # (A) 0.1 k/uL (0-0.7); Eosinophils % (A) 2 %; HGB 12.6 gm/dL (11.4-16.0); Lymphocytes # (A) 2.3 k/uL (1.0-4.8); Lymphocytes % (A) 35 %; MCH 30.9 pg (25.0-35.0); MCHC 34.1 g/dL (31.0-37.0); MCV 90.6 fL (80.0-100.0); Mean Platelet Volume 7.1; Monocytes # (A) 0.4 k/uL (0-1.0); Monocytes % (A) 6 %; Neutrophils # (A) 3.7 k/uL (1.3-7.7); Neutrophils % (A) 54 %; Platelet Count 303 k/uL (150-450); RBC 4.08 m/uL (3.80-5.40); RDW 13.2 % (11.5-15.5); WBC 6.7 k/uL (3.8-10.6)
[2018-12-21] MEDS ORDERED: NITROGLYCERIN-D5W PMX 50 MG in DEXTROSE/WATER 1 250ML.BAG IV ONE (15:20)
[2018-12-21 15:30] LABS: Albumin 4.4 g/dL (3.5-5.0); Calcium 8.9 mg/dL (8.4-10.2); Magnesium 1.7 mg/dL (1.6-2.3); Total Bilirubin 0.4 mg/dL (0.2-1.3); Total Protein 6.9 g/dL (6.3-8.2)
[2018-12-21 15:32] LABS: INR 0.9 (<1.2); Partial Thromboplastin Time 25.6 sec (22.0-30.0)
--- NOTE | 2018-12-21 15:36 | XR ---
EXAMINATION TYPE: XR chest 2V DATE OF EXAM: 12/21/2018 COMPARISON: 11/14/2018 INDICATION: Chest pain TECHNIQUE: Frontal and lateral views of the chest are obtained. FINDINGS: The heart size is normal. The pulmonary vasculature is normal. The lungs are clear. Some mild hyperinflation may be present. IMPRESSION: 1. No acute pulmonary process.
[2018-12-21] MEDS ORDERED: NITROGLYCERIN SL TABS 0.4 MG TAB SUBLINGUAL PRN ×2 (17:03→17:18)
[2018-12-21] MEDS ORDERED: ACET/COD 300 MG/30 MG STARTER PACK 6 TAB BTL PO PRN (17:18)
--- NOTE | 2018-12-21 17:24 | P.HPIM ---
History of Present Illness 83-year-old the pleasant female with known history of carotid artery disease recent cardiac catheterization and stenting couple months ago followed by and the cardiac catheterization which showed clean coronaries which was complicated by a a hematoma in the left groin came in with complaints of chest pressure like sensation which is related to the pain when she had a microinfarction it's in the left retrosternal area pressure-like sensation severe pain better now. Improved with 2 nitroglycerin 6 additional not associated with food not associated with deep breathing, completely resolved after 3 more nitros that were given in ER. Patient denied any fever chills cough. Patient EKG showed some nonspecific ST-T wave abnormalities troponin is negative facet. Patient was at a grocery store in the line when she had this pain associated with some lightheadedness, denied any shortness of breath nausea. Nonradiating pain which she had radiation of pain to the left arm in the past when she had a myocardial infarction. Patient denies any diaphoresis but states she is cold and clammy Review of Systems REVIEW OF SYSTEMS: CONSTITUTIONAL: No fever, no malaise, no fatigue. HEENT: No recent visual problems or hearing problems. Denied any sore throat. CARDIOVASCULAR: No orthopnea, PND, no palpitations, no syncope. PULMONARY: No shortness of breath, no cough, no hemoptysis. GASTROINTESTINAL: No diarrhea, no nausea, no vomiting, no abdominal pain. NEUROLOGICAL: No headaches, no weakness, no numbness. HEMATOLOGICAL: Denies any bleeding or petechiae. GENITOURINARY: Denies any burning micturition, frequency, or urgency. MUSCULOSKELETAL/RHEUMATOLOGICAL: Denies any joint pain, swelling, or any muscle pain. ENDOCRINE: Denies any polyuria or polydipsia. The rest of the 14-point review of systems is negative. Past Medical History Past Medical History: Coronary Artery Disease (CAD), CVA/TIA, Diabetes Mellitus, Eye Disorder, GERD/Reflux, Hearing Disorder / Deafness, Hyperlipidemia, Hypertension, Myocardial Infarction (AL), Osteoarthritis (OA), Thyroid Disorder Additional Past Medical History / Comment(s): PT RECENTLY ADMITTED TO [facility] ON 11/08/18 WITH HYPONATREMIA/FACIAL CELLULITIS/DENTAL CARIES. 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 Last Myocardial Infarction Date:: 04/2018 History of Any Multi-Drug Resistant Organisms: None Reported Past Surgical History: Back Surgery, Breast Surgery, Heart Catheterization With Stent, Hysterectomy, Orthopedic Surgery, Tubal Ligation Additional Past Surgical History / Comment(s): PCI with a total of 7 stents, low back surgery, L breast benign bx, R rotator cuff repair, R eye cataract removed, multiple bilateral laser eye surgeries, bilateral eye stents-R one fell out, th yroidectomy d/t nodules, temporal artery bx, cervical and lumbar injections. Past Anesthesia/Blood Transfusion Reactions: Previous Problems w/ Anesthesia Additional Past Anesthesia/Blood Transfusion Reaction / Comment(s): hard to wake up Date of Last Stent Placement:: 10/22/18 Past Psychological History: Anxiety Smoking Status: Never smoker Past Alcohol Use History: None Reported Past Drug Use History: None Reported - Past Family History Mother Family Medical History: Myocardial Infarction (AL) Additional Family Medical History / Comment(s): MOTHER OF A AL AT THE AGE OF 57YRS. Brother(s) Family Medical History: Myocardial Infarction (AL) Additional Family Medical History / Comment(s): BROTHER OF A AL AT THE AGE OF 60YRS. Father Family Medical History: No Reported History Additional Family Medical History / Comment(s): FATHER LIVED TO BE 90YRS OLD. Medications and Allergies Home Medications Medication Instructions Recorded Confirmed Type Aspirin 81 mg PO HS 01/21/14 12/21/18 History Clopidogrel [Plavix] 75 mg PO DAILY 01/21/14 12/21/18 History Metoprolol Tartrate [Lopressor] 50 mg PO BID 01/21/14 12/21/18 History Cholecalciferol [Vitamin D3] 1,000 unit PO DAILY 05/03/16 12/21/18 History Vits A,C,E/Lutein/Minerals 2 tab PO DAILY 05/03/16 12/21/18 History [Ocuvite with Lutein Tablet] Levothyroxine Sodium [Synthroid] 88 mcg PO DAILY 05/31/17 12/21/18 History ALPRAZolam [Xanax] 0.25 mg PO DAILY PRN #30 06/05/17 12/21/18 Rx Glimepiride [Amaryl] 1 mg PO AC-BRKFST 04/28/18 12/21/18 History metFORMIN HCL [Glucophage] 500 mg PO BID 04/28/18 12/21/18 History Acetaminophen Tab [Tylenol] 500 mg PO Q6HR PRN tab 05/01/18 12/21/18 Rx Acetaminophen with Codeine 1 tab PO Q6H PRN 09/25/18 12/21/18 History [Tylenol w/codeine #3] Atorvastatin [Lipitor] 80 mg PO HS 10/18/18 12/21/18 History Losartan [Cozaar] 100 mg PO DAILY #30 tab 10/21/18 12/21/18 Rx Nitroglycerin Sl Tabs [Nitrostat] 0.4 mg SUBLINGUAL Q5M PRN #25 tab 10/21/18 12/21/18 Rx amLODIPine [Norvasc] 5 mg PO BID #60 tab 10/21/18 12/21/18 Rx Allergies Allergy/AdvReac Type Severity Reaction Status Date / Time PAPER TAPE Allergy Unknown Rash/Hives Uncoded 12/21/18 15:15 Physical Exam Vitals: Vital Signs Temp Pulse Pulse Resp BP Pulse Ox 12/21/18 16:02 64 18 125/78 98 12/21/18 15:12 68 16 108/58 98 12/21/18 14:50 67 18 128/75 96 12/21/18 14:40 61 12/21/18 14:39 97.4 F L 87 22 137/67 97 Intake and Output 12/21/18 12/21/18 12/21/18 06:59 14:59 22:59 Other: Weight 70.76 kg PHYSICAL EXAMINATION: GENERAL: The patient is alert and oriented x3, not in any acute distress. Well developed, well nourished. HEENT: Pupils are round and equally reacting to light. EOMI. No scleral icterus. No conjunctival pallor. Normocephalic, atraumatic. No pharyngeal erythema. No thyromegaly. CARDIOVASCULAR: S1 and S2 present. No murmurs, rubs, or gallops. PULMONARY: Chest is clear to auscultation, no wheezing or crackles. ABDOMEN: Soft, nontender, nondistended, normoactive bowel sounds. No palpable organomegaly. MUSCULOSKELETAL: No joint swelling or deformity. EXTREMITIES: No cyanosis, clubbing, or pedal edema. NEUROLOGICAL: Gross neurological examination did not reveal any focal deficits. SKIN: No rashes. Results CBC & Chem 7: 12/21/18 15:09 12/21/18 15:09 Labs: Abnormal Lab Results - Last 24 Hours (Table) 12/21/18 Range/Units 15:09 Sodium 134 L (137-145) mmol/L Chloride 96 L (98-107) mmol/L Assessment and Plan Plan: Chest pain: Rule out acute coronary syndromes and unstable angina patient will be evaluated by cardiology depending on the troponins patient probably will go for stress test of the negative if not may need a cardiac catheterization at that time. Coronary artery disease with recent microinfarction and stent placement couple months ago. Patient will be resumed on dual antiplatelet therapy beta gennaro and CHUNG inhibitor. -Type 2 diabetes mellitus -Gastroesophageal reflux disease hyperlipidemia hypertension Hypothyroidism For above-mentioned chronic medical problems patient will be resumed on appropriate home medications
[2018-12-21] MEDS ORDERED: Acetaminophen-Codeine 300-30mg TAB PO PRN (18:06)
[2018-12-21] MEDS ORDERED: ALPRAZolam 0.25 MG TAB PO PRN (18:42)
[2018-12-21] MEDS: NITROGLYCERIN OINT 1 INCH/GM PACKET TOPICAL SCH ×2 (19:47→23:34)
[2018-12-21] MEDS ORDERED: ATORVASTATIN 80 MG TAB PO SCH (21:00)
[2018-12-21 21:04] LABS: Glucose,Whole Blood 197 mg/dL (75-99)
[2018-12-21 22:10] VITALS: BMI 31.5
[2018-12-21] MEDS: amLODIPine 5 MG TAB PO SCH (22:10)
[2018-12-21] MEDS: METOPROLOL TARTRATE 50 MG TAB PO SCH (22:10)
[2018-12-21] MEDS ORDERED: ACETAMINOPHEN TAB 325 MG TAB PO STA (22:33)
[2018-12-21] MEDS ORDERED: INSULIN ASPART (NovoLOG) 100 UNIT/ML VIAL SQ ONE (23:37)
[2018-12-21 23:50] VITALS: RESP 16
[2018-12-22] MEDS: NITROGLYCERIN OINT 1 INCH/GM PACKET TOPICAL SCH (05:51)
[2018-12-22] MEDS ORDERED: LEVOTHYROXINE 88 MCG TAB PO SCH (06:30)
[2018-12-22 06:52] LABS: Glucose,Whole Blood 132 mg/dL (75-99)
[2018-12-22] MEDS ORDERED: CLOPIDOGREL 75 MG TAB PO SCH (09:00)
[2018-12-22] MEDS ORDERED: LOSARTAN 50 MG TAB PO SCH (09:00)
[2018-12-22] MEDS ORDERED: ASPIRIN 325 MG TAB PO SCH (09:00)
[2018-12-22] MEDS ORDERED: ASPIRIN 81 MG PO SCH (09:00)
[2018-12-22] MEDS ORDERED: ISOSORBIDE MONONITRATE ER 30 MG TAB.ER.24H PO SCH (09:00)
--- NOTE | 2018-12-22 09:10 | CONS ---
CONSULTATION Mrs. Brewster is an 83-year-old female with a known history of coronary artery disease who is followed on a regular basis by Dr. Isaiah Silva. She has a known history of coronary artery disease status post stenting of her ostial left circumflex with repeat cardiac catheterization performed on November 16. At that time, she had no evidence of progression of disease. She has underwent an echocardiogram during the same admission that revealed a preserved left ventricular size and systolic function. She presented with symptoms of chest discomfort that occurred while she was standing at the checkout counter in [facility]. The patient denies any dizziness or palpitation. She has no syncope. She has chronic peripheral edema and had hyponatremia in the past and she was her diuretics were stopped. She has no clear PND, orthopnea, or peripheral edema. She is feeling well this morning and has no symptoms of discomfort. Her coronary risk factors are remarkable for history of diabetes, hypertension, and hyperlipidemia. She is a nonsmoker. MEDICATION: With Lipitor 80 mg daily, aspirin once a day, Plavix 75 mg daily, Amaryl, Synthroid, Cozaar, Lopressor, Norvasc 5 mg twice a day and metformin 500 mg twice a day. REVIEW OF SYSTEMS: RESPIRATORY system: She has no documented history of asthma or emphysema. She has a cough. GI SYSTEM: No recent GI bleeding. No peptic ulcer disease. SYSTEM: No dysuria or hematuria. NERVOUS SYSTEM: No history of seizure. She had a prior history of stroke. PHYSICAL EXAMINATION: She is an 83-year-old female, alert, oriented, in no apparent distress. Blood pressure 110/60 with a heart rate in the 60s. HEAD: Normocephalic. Eyes sclerae anicteric. NECK: Good carotid upstroke. No bruit. No jugular venous distention. LUNGS: Clear to auscultation. CARDIOVASCULAR: Heart is regular rate and rhythm S1, S2. No S3 with systolic murmur, ejection type heard at the base. No diastolic murmur. No rub. ABDOMEN: Soft, nontender. Positive bowel sounds. No organomegaly. EXTREMITIES: +1 edema bilaterally. LAB DATA: Lab data revealed troponin less than 0.012. BUN and creatinine of 19 and 0.79. Sodium 135. Her sodium has been down to 118 in the past. Cholesterol 145, LDL of 44, hemoglobin of 12.6. EKG revealed a sinus mechanism with a right bundle branch block and no acute ST-segment changes. Reviewing the old EKG there are no changes. Her chest x-ray shows no acute infiltrate. IMPRESSION: 1. Chest discomfort of unclear etiology. No evidence to suggest acute coronary syndrome in a patient known history of coronary artery disease and recent cardiac catheterization performed in October of this year that showed no evidence of restenosis. 2. History of prior multiple multivessel stenting. 3. History of hypertension. 4. Hyperlipidemia. 5. Prior history of hyponatremia. RECOMMENDATIONS: From the cardiac standpoint, I will continue present therapy. I will add nitrate to her regimen for the possibility of vasospastic disease. She is scheduled to be seen by the Nephrology in regard to her hyponatremia as an outpatient. I would expect she should be able to be discharged home today and followed as an outpatient with Dr. Silva. Thank you for this consult. We will follow with you. MMLIYAL / IJN: [id number] /
[2018-12-22] MEDS: amLODIPine 5 MG TAB PO SCH (09:25)
[2018-12-22] MEDS: METOPROLOL TARTRATE 50 MG TAB PO SCH (09:25)
[2018-12-22] MEDS: INSULIN ASPART (NovoLOG) 100 UNIT/ML VIAL SQ SCH ×2 (09:26→12:04)
[2018-12-22 11:57] LABS: Glucose,Whole Blood 181 mg/dL (75-99)
[2018-12-22 12:50] VITALS: BP 111/67; PULSE 64; TEMP 97.9
--- NOTE | 2018-12-22 15:56 | P.DS ---
Providers Date of admission: 12/21/18 17:03 Attending physician: Kleber Zayas Consults: 12/21/18 17:03 Consult Physician Urgent Consulting Provider: Oneil Siddiqui Consult Reason/Comments: cp Do you want consulting provider notified?: Yes Primary care physician: Anthony Cameron Hospital Course: Patient was admitted for chest pain rule out acute current symptoms, patient had a recent Cardiolite ablation which did not show any significant atherosclerotic occlusive vascular disease and patient was evaluated cardiology and the cleared for discharge patient is being discharged today in stable medical condition to home. Patient is chest pain-free and had chest pain started after taking Benadryl which has anticollagen properties and probably may have contributed to the chest pain she took Benadryl for her lip swelling which presently resolved. PHYSICAL EXAMINATION: GENERAL: The patient is alert and oriented x3, not in any acute distress. Well developed, well nourished. HEENT: Pupils are round and equally reacting to light. EOMI. No scleral icterus. No conjunctival pallor. Normocephalic, atraumatic. No pharyngeal erythema. No thyromegaly. CARDIOVASCULAR: S1 and S2 present. No murmurs, rubs, or gallops. PULMONARY: Chest is clear to auscultation, no wheezing or crackles. ABDOMEN: Soft, nontender, nondistended, normoactive bowel sounds. No palpable organomegaly. MUSCULOSKELETAL: No joint swelling or deformity. EXTREMITIES: No cyanosis, clubbing, or pedal edema. NEUROLOGICAL: Gross neurological examination did not reveal any focal deficits. SKIN: No rashes. For rest of the chronic medical problems and hospital physician course please refer to my HPI from yesterday Plan - Discharge Summary Discharge Rx Participant: No New Discharge Prescriptions: New Isosorbide Mononitrate ER [Imdur] 30 mg PO DAILY #30 tab.er.24h Continue Aspirin 81 mg PO HS Metoprolol Tartrate [Lopressor] 50 mg PO BID Clopidogrel [Plavix] 75 mg PO DAILY Vits A,C,E/Lutein/Minerals [Ocuvite with Lutein Tablet] 2 tab PO DAILY Cholecalciferol [Vitamin D3] 1,000 unit PO DAILY Levothyroxine Sodium [Synthroid] 88 mcg PO DAILY ALPRAZolam [Xanax] 0.25 mg PO DAILY PRN #30 PRN Reason: Anxiety metFORMIN HCL [Glucophage] 500 mg PO BID Glimepiride [Amaryl] 1 mg PO AC-BRKFST Acetaminophen Tab [Tylenol] 500 mg PO Q6HR PRN tab PRN Reason: Fever And/ Or Pain Acetaminophen with Codeine [Tylenol w/codeine #3] 1 tab PO Q6H PRN PRN Reason: Pain Atorvastatin [Lipitor] 80 mg PO HS amLODIPine [Norvasc] 5 mg PO BID #60 tab Nitroglycerin Sl Tabs [Nitrostat] 0.4 mg SUBLINGUAL Q5M PRN #25 tab PRN Reason: Chest Pain Changed Losartan [Cozaar] 50 mg PO DAILY #30 tab Discharge Medication List Aspirin 81 mg PO HS 01/21/14 [History] Clopidogrel [Plavix] 75 mg PO DAILY 01/21/14 [History] Metoprolol Tartrate [Lopressor] 50 mg PO BID 01/21/14 [History] Cholecalciferol [Vitamin D3] 1,000 unit PO DAILY 05/03/16 [History] Vits A,C,E/Lutein/Minerals [Ocuvite with Lutein Tablet] 2 tab PO DAILY 05/03/16 [History] Levothyroxine Sodium [Synthroid] 88 mcg PO DAILY 05/31/17 [History] ALPRAZolam [Xanax] 0.25 mg PO DAILY PRN #30 06/05/17 [Rx] Glimepiride [Amaryl] 1 mg PO AC-BRKFST 04/28/18 [History] metFORMIN HCL [Glucophage] 500 mg PO BID 04/28/18 [History] Acetaminophen Tab [Tylenol] 500 mg PO Q6HR PRN tab 05/01/18 [Rx] Acetaminophen with Codeine [Tylenol w/codeine #3] 1 tab PO Q6H PRN 09/25/18 [History] Atorvastatin [Lipitor] 80 mg PO HS 10/18/18 [History] Nitroglycerin Sl Tabs [Nitrostat] 0.4 mg SUBLINGUAL Q5M PRN #25 tab 10/21/18 [Rx] amLODIPine [Norvasc] 5 mg PO BID #60 tab 10/21/18 [Rx] Isosorbide Mononitrate ER [Imdur] 30 mg PO DAILY #30 tab.er.24h 12/22/18 [Rx] Losartan [Cozaar] 50 mg PO DAILY #30 tab 12/22/18 [Rx] Follow up Appointment(s)/Referral(s): Anthony Cameron MD [Primary Care Provider] - 3 Days Patient Instructions/Handouts: Chest Pain (DC) Discharge Disposition: HOME SELF-CARE
== END 2018-12-22 14:39 | disposition home or self-care (01) ==
LOC: EC 14:34 → 1SOBS 17:03
PROVIDERS: ADMIT Internal Medicine; ATTEND Internal Medicine
DX: R07.89 Other chest pain (principal); I25.10 Atherosclerotic heart disease of native coronary artery without angina pectoris; Z95.5 Presence of coronary angioplasty implant and graft; K21.9 Gastro-esophageal reflux disease without esophagitis; E11.9 Type 2 diabetes mellitus without complications; E78.5 Hyperlipidemia, unspecified; F41.9 Anxiety disorder, unspecified; H35.30 Unspecified macular degeneration; H54.8 Legal blindness, as defined in USA; M19.042 Primary osteoarthritis, left hand; M19.041 Primary osteoarthritis, right hand; G43.909 Migraine, unspecified, not intractable, without status migrainosus; E87.1 Hypo-osmolality and hyponatremia; K59.00 Constipation, unspecified; K44.9 Diaphragmatic hernia without obstruction or gangrene; R60.0 Localized edema; I10 Essential (primary) hypertension; I25.2 Old myocardial infarction; Z90.710 Acquired absence of both cervix and uterus; Z86.73 Personal history of transient ischemic attack (TIA), and cerebral infarction without residual deficits; Z86.19 Personal history of other infectious and parasitic diseases; Z98.41 Cataract extraction status, right eye; Z79.899 Other long term (current) drug therapy; Z79.890 Hormone replacement therapy; Z79.84 Long term (current) use of oral hypoglycemic drugs; Z79.82 Long term (current) use of aspirin; Z79.02 Long term (current) use of antithrombotics/antiplatelets; Z82.49 Family history of ischemic heart disease and other diseases of the circulatory system
CPT/HCPCS: 99285; 36415; 93005; 80061; 80053; 80048; 82550; 83735; 84484 ×2; 85025; 85610; 85730; 71046; G0378 ×2

== ENCOUNTER 2019-01-08 17:18 | Observation (INO) | payer MEDICARE, BC ==
--- NOTE | 2019-01-08 17:42 | ED ---
Chest Pain HPI - General Chief Complaint: Chest Pain Stated Complaint: Chest pain/sob Time Seen by Provider: 01/08/19 17:28 Source: patient, RN notes reviewed, old records reviewed Mode of arrival: ambulatory Limitations: no limitations - History of Present Illness Initial Comments: This is an 83-year-old female with significant history of heart disease as well as multiple medical comorbidities. Patient presented with chest pain heaviness on her chest 4 hours. Patient does have significant history of heart disease with recent stent placement. Multiple ER visits for chest pain as well. MD Complaint: chest pain -: hour(s) (4) Onset: during rest Pain Location: substernal, left chest Pain Radiation: LUE Severity: mild Severity scale (1-10): 3 Quality: heaviness Consistency: constant Improves With: nothing Worsens With: nothing Anginal Symptoms: dyspnea Other Symptoms: palpitations Treatments Prior to Arrival: none - Related Data Home Medications Medication Instructions Recorded Confirmed Aspirin 81 mg PO HS 01/21/14 01/08/19 Clopidogrel [Plavix] 75 mg PO DAILY 01/21/14 01/08/19 Metoprolol Tartrate [Lopressor] 50 mg PO BID 01/21/14 01/08/19 Cholecalciferol [Vitamin D3 (25 1,000 unit PO DAILY 05/03/16 01/08/19 Mcg = 1000 Iu)] Vits A,C,E/Lutein/Minerals 2 tab PO DAILY 05/03/16 01/08/19 [Ocuvite with Lutein Tablet] Levothyroxine Sodium [Synthroid] 88 mcg PO DAILY 05/31/17 01/08/19 Glimepiride [Amaryl] 1 mg PO AC-BRKFST 04/28/18 01/08/19 metFORMIN HCL [Glucophage] 500 mg PO BID 04/28/18 01/08/19 Acetaminophen with Codeine 1 tab PO Q6H PRN 09/25/18 01/08/19 [Tylenol w/codeine #3] Atorvastatin Calcium [Lipitor] 40 mg PO DAILY 01/08/19 01/08/19 Furosemide [Lasix] 20 mg PO DAILY 01/08/19 01/08/19 Losartan [Cozaar] 100 mg PO DAILY 01/08/19 01/08/19 Sennosides [Senokot] 8.6 mg PO BID 01/08/19 01/08/19 Previous Rx's Medication Instructions Recorded ALPRAZolam [Xanax] 0.25 mg PO DAILY PRN #30 06/05/17 Acetaminophen Tab [Tylenol] 500 mg PO Q6HR PRN tab 05/01/18 Nitroglycerin Sl Tabs [Nitrostat] 0.4 mg SUBLINGUAL Q5M PRN #25 tab 10/21/18 amLODIPine [Norvasc] 5 mg PO BID #60 tab 10/21/18 Isosorbide Mononitrate ER [Imdur] 30 mg PO DAILY #30 tab.er.24h 12/22/18 Allergies Allergy/AdvReac Type Severity Reaction Status Date / Time PAPER TAPE Allergy Unknown Rash/Hives Uncoded 01/08/19 17:25 Review of Systems ROS Statement: Those systems with pertinent positive or pertinent negative responses have been documented in the HPI. ROS Other: All systems not noted in ROS Statement are negative. EKG Findings - EKG Comments: EKG Findings:: EKG shows normal sinus rhythm rate of 76, IL 184, QRS 126, QTc 463 Past Medical History Past Medical History: Coronary Artery Disease (CAD), CVA/TIA, Diabetes Mellitus, Eye Disorder, GERD/Reflux, Hearing Disorder / Deafness, Hyperlipidemia, Hypertension, Myocardial Infarction ([place]), Osteoarthritis (OA), Thyroid Disorder Additional Past Medical History / Comment(s): PT RECENTLY ADMITTED TO [facility] ON 11/08/18 WITH HYPONATREMIA/FACIAL CELLULITIS/DENTAL CARIES. 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 Last Myocardial Infarction Date:: 09/2018 History of Any Multi-Drug Resistant Organisms: None Reported Past Surgical History: Back Surgery, Breast Surgery, Heart Catheterization With Stent, Hysterectomy, Orthopedic Surgery, Tubal Ligation Additional Past Surgical History / Comment(s): PCI with a total of 7 stents, low back surgery, L breast benign bx, R rotator cuff repair, R eye cataract removed, multiple bilateral laser eye surgeries, bilateral eye stents-R one fell out, thyroidectomy d/t nodules, temporal artery bx, cervical and lumbar injections. Past Anesthesia/Blood Transfusion Reactions: Previous Problems w/ Anesthesia Additional Past Anesthesia/Blood Transfusion Reaction / Comment(s): hard to wake up Date of Last Stent Placement:: 10/22/18 Past Psychological History: Anxiety Smoking Status: Never smoker Past Alcohol Use History: None Reported Past Drug Use History: None Reported - Past Family History Mother Family Medical History: Myocardial Infarction (NH) Additional Family Medical History / Comment(s): MOTHER OF A NH AT THE AGE OF 57YRS. Brother(s) Family Medical History: Myocardial Infarction (NH) Additional Family Medical History / Comment(s): BROTHER OF A NH AT THE AGE OF 60YRS. Father Family Medical History: No Reported History Additional Family Medical History / Comment(s): FATHER LIVED TO BE 90YRS OLD. General Exam Limitations: no limitations General appearance: alert, in no apparent distress Head exam: Present: atraumatic, normocephalic, normal inspection Eye exam: Present: normal appearance, PERRL, EOMI. Absent: scleral icterus, conjunctival injection, periorbital swelling ENT exam: Present: normal exam, mucous membranes moist Neck exam: Present: normal inspection. Absent: tenderness, meningismus, lymphadenopathy Respiratory exam: Present: normal lung sounds bilaterally. Absent: respiratory distress, wheezes, rales, rhonchi, stridor Cardiovascular Exam: Present: regular rate, normal rhythm, normal heart sounds. Absent: systolic murmur, diastolic murmur, rubs, gallop, clicks GI/Abdominal exam: Present: soft, normal bowel sounds. Absent: distended, tenderness, guarding, rebound, rigid Extremities exam: Present: normal inspection, full ROM, normal capillary refill. Absent: tenderness, pedal edema, joint swelling, calf tenderness Back exam: Present: normal inspection Neurological exam: Present: alert, oriented X3, CN II-XII intact Psychiatric exam: Present: normal affect, normal mood Skin exam: Present: warm, dry, intact, normal color. Absent: rash Course Vital Signs 01/08/19 17:23 Temperature 98 F Pulse Rate 81 Respiratory 24 Rate Blood Pressure 163/64 O2 Sat by Pulse 100 Oximetry - Reevaluation(s) Reevaluation #1: 01/08/19 18:32 Medical record reviewed 01/08/19 19:32 Prior cath is reviewed Reevaluation #2: 01/08/19 19:32 Patient remains with episodic chest pain Chest Pain MDM - MDM 83 female the ER for evaluation, patient has persistent chest pain. Patient be admitted for cardiac observation Critical Care Time Critical Care Time: Yes Total Critical Care Time: 31 Disposition Clinical Impression: Hyponatremia, Unstable angina pectoris, Chest pain Disposition: ADMITTED IP TO THIS HOSP Condition: Undetermined Instructions (If sedation given, give patient instructions): Chest Pain (ED) Is patient prescribed a controlled substance at d/c from ED?: No Referrals: Anthony Cameron MD [Primary Care Provider] - 1-2 days
[2019-01-08 18:42] LABS: Basophils # (A) 0.1 k/uL (0-0.2); Basophils % (A) 1 %; Eosinophils # (A) 0.2 k/uL (0-0.7); Eosinophils % (A) 2 %; HCT 36.6 % (34.0-46.0); HGB 12.4 gm/dL (11.4-16.0); Lymphocytes # (A) 1.8 k/uL (1.0-4.8); Lymphocytes % (A) 22 %; MCH 29.9 pg (25.0-35.0); MCHC 33.8 g/dL (31.0-37.0); MCV 88.5 fL (80.0-100.0); Mean Platelet Volume 7.5; Monocytes # (A) 0.6 k/uL (0-1.0); Monocytes % (A) 7 %; Neutrophils # (A) 5.3 k/uL (1.3-7.7); Neutrophils % (A) 66 %; Platelet Count 261 k/uL (150-450); RBC 4.13 m/uL (3.80-5.40); RDW 13.7 % (11.5-15.5); WBC 8.1 k/uL (3.8-10.6)
[2019-01-08 18:50] LABS: INR 0.9 (<1.2); Partial Thromboplastin Time 24.7 sec (22.0-30.0)
[2019-01-08 18:52] LABS: ALT 15 U/L (9-52); AST 20 U/L (14-36); Albumin 4.5 g/dL (3.5-5.0); Alkaline Phosphatase 97 U/L (38-126); Anion Gap 13 mmol/L; Blood Urea Nitrogen 17 mg/dL (7-17); Calcium 9.3 mg/dL (8.4-10.2); Carbon Dioxide 22 mmol/L (22-30); Chloride 96 mmol/L (98-107); Glucose 96 mg/dL (74-99); Lipase 134 U/L (23-300); Magnesium 1.4 mg/dL (1.6-2.3); Potassium 4.1 mmol/L (3.5-5.1); Sodium 131 mmol/L (137-145); Total Bilirubin 0.3 mg/dL (0.2-1.3); Total Protein 7.1 g/dL (6.3-8.2)
[2019-01-08] MEDS ORDERED: ASPIRIN 81 MG PO STA (19:33)
[2019-01-08] MEDS ORDERED: NITROGLYCERIN SL TABS 0.4 MG TAB SUBLINGUAL PRN (19:33)
--- NOTE | 2019-01-08 19:48 | XR ---
EXAMINATION TYPE: XR chest 2V DATE OF EXAM: 01/08/2019 COMPARISON: 12/21/2018 HISTORY: Chest pain TECHNIQUE: Frontal and lateral views of the chest are obtained. FINDINGS: There is no heart failure nor confluent pneumonic infiltrate. Heart size is fairly normal. There is mild thoracic dextroscoliosis. There are chest leads. IMPRESSION: No active cardiopulmonary disease. No change.
[2019-01-08] MEDS: SODIUM CHLORIDE 0.9% 1,000 ML IV SCH (20:23)
[2019-01-08] MEDS ORDERED: Acetaminophen-Codeine 300-30mg TAB PO PRN (21:48)
[2019-01-08] MEDS ORDERED: ACETAMINOPHEN TAB 500 MG TAB PO PRN (21:48)
[2019-01-08] MEDS ORDERED: ALPRAZolam 0.25 MG TAB PO PRN (21:48)
[2019-01-08] MEDS ORDERED: Magnesium Replacement Protocol 1 EACH MISC MISCELLANE PRN (21:50)
[2019-01-08 22:05] VITALS: BMI 31.5
[2019-01-08] MEDS ORDERED: ATORVASTATIN 40 MG TAB PO SCH (22:11)
[2019-01-08] MEDS: METOPROLOL TARTRATE 25 MG TAB PO SCH (22:18)
[2019-01-08] MEDS: amLODIPine 5 MG TAB PO SCH (22:19)
[2019-01-08] MEDS: MAGNESIUM SULFATE-D5W PMX 1 GM in DEXTROSE/WATER 1 100ML.BAG IVPB SCH (22:19)
[2019-01-08] MEDS: NITROGLYCERIN OINT 1 INCH/GM PACKET TOPICAL SCH (22:23)
[2019-01-08] MEDS ORDERED: ALPRAZolam 0.25 MG TAB ONE (23:28)
[2019-01-09] MEDS: MAGNESIUM SULFATE-D5W PMX 1 GM in DEXTROSE/WATER 1 100ML.BAG IVPB SCH (04:47)
[2019-01-09 05:55] LABS: Glucose,Whole Blood 107 mg/dL (75-99)
[2019-01-09] MEDS: NITROGLYCERIN OINT 1 INCH/GM PACKET TOPICAL SCH ×2 (06:15→12:02)
[2019-01-09] MEDS ORDERED: LEVOTHYROXINE 88 MCG TAB PO SCH (06:30)
[2019-01-09 07:28] LABS: Cholesterol 161 mg/dL (<200); HDL Cholesterol 82 mg/dL (40-60); LDL Cholesterol,Calculated 52 mg/dL (0-99); Triglycerides 135 mg/dL (<150)
[2019-01-09] MEDS ORDERED: GLIMEPIRIDE 1 MG TAB PO SCH (07:30)
[2019-01-09] MEDS ORDERED: LOSARTAN 50 MG TAB PO SCH (09:00)
[2019-01-09] MEDS ORDERED: ATORVASTATIN 40 MG TAB PO SCH (09:00)
[2019-01-09] MEDS ORDERED: ASPIRIN 325 MG TAB PO SCH (09:00)
[2019-01-09] MEDS ORDERED: CLOPIDOGREL 75 MG TAB PO SCH (09:00)
[2019-01-09] MEDS ORDERED: VIT A,C & E-LUTEIN-MINERALS 1 EACH TAB PO SCH (09:00)
[2019-01-09] MEDS ORDERED: SENNOSIDES 8.6 MG TAB PO SCH (09:00)
[2019-01-09] MEDS ORDERED: ISOSORBIDE MONONITRATE ER 30 MG TAB.ER.24H PO SCH (09:00)
[2019-01-09] MEDS ORDERED: FUROSEMIDE 20 MG TAB PO SCH (09:00)
[2019-01-09] MEDS ORDERED: amLODIPine 5 MG TAB PO SCH (09:00)
[2019-01-09] MEDS ORDERED: CHOLECALCIFEROL 1,000 UNIT TAB PO SCH (09:00)
--- NOTE | 2019-01-09 09:13 | P.CRDCN ---
History of Present Illness Consult date: 01/09/19 Requesting physician: Anthony Cameron Consult reason: chest pain Chief complaint: Chest pain History of present illness: This is a pleasant 83-year-old female with past medical history sig nificant for coronary artery disease and prior stent placement to the ostial circumflex in September of this year, hyperlipidemia, hypertension, diabetes, hypothyroidism, renal insufficiency, follows regularly with Dr. hKoa Silva in the office. She had a hospitalization in October with symptoms of chest discomfort at that time. She did undergo repeat cardiac catheterization by Dr. Khoa Silva which revealed a widely patent ostial circumflex at the site of previous stenting and also a patent LAD from a prior stented area. No other disease was noted and patient was advised maximal medical therapy at that time. He again presents to the hospital on this occasion with symptoms of chest pressure and heaviness. Patient states she did try to take nitroglycerin with relief of symptoms for brief period of time however the symptoms returned. For this reason patient came to the emergency room for further evaluation and treatment. Her blood pressure on arrival here 142/60 with a heart rate in the 60s, 94% on room air. White blood cell count 8.1, hemoglobin 12.4, platelet count 261. Sodium 131, potassium 4.1, BUN 17 and creatinine 0.6. Magnesium on admission was 1.4 and is 2.4 this morning. Troponins times to have been negative and BNP level is 217. Chest x-ray did not reveal any active cardiopulmonary disease. EKG shows a normal sinus rhythm with a right bundle branch block pattern and nonspecific ST-T wave changes in the inferior and anterior leads. At the time of my examination this morning, patient states that she still has a mild pressure in her chest, with some mild shortness of breath. Lying comfortably flat in bed this morning. 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 Last Myocardial Infarction Date:: 09/2018 History of Any Multi-Drug Resistant Organisms: None Reported Past Surgical History: Back Surgery, Breast Surgery, Heart Catheterization With Stent, Hysterectomy, Orthopedic Surgery, Tubal Ligation Additional Past Surgical History / Comment(s): PCI with a total of 7 stents, low back surgery, L breast benign bx, R rotator cuff repair, R eye cataract removed, multiple bilateral laser eye surgeries, bilateral eye stents-R one fell out, thyroidectomy d/t nodules, temporal artery bx, cervical and lumbar injections. Past Anesthesia/Blood Transfusion Reactions: Previous Problems w/ Anesthesia Additional Past Anesthesia/Blood Transfusion Reaction / Comment(s): hard to wake up Date of Last Stent Placement:: 10/19/18 Past Psychological History: Anxiety Additional Psychological History / Comment(s): Pt has her son, Geoffrey residing with her. She is visually impaired, reads with a lighted magnifying screen. She signs her name occasionally. She is able to manage her own medications. Her sons take her to appts. She ambulates with a walker. Smoking Status: Never smoker Past Alcohol Use History: None Reported Past Drug Use History: None Reported - Past Family History Mother Family Medical History: Myocardial Infarction ([place]) Additional Family Medical History / Comment(s): MOTHER OF A [place] AT THE AGE OF 57YRS. Brother(s) Family Medical History: Myocardial Infarction ([place]) Additional Family Medical History / Comment(s): BROTHER OF A MN AT THE AGE OF 60YRS. Father Family Medical History: No Reported History Additional Family Medical History / Comment(s): FATHER LIVED TO BE 90YRS OLD. Medications and Allergies Home Medications Medication Instructions Recorded Confirmed Type Aspirin 81 mg PO HS 01/21/14 01/08/19 History Clopidogrel [Plavix] 75 mg PO DAILY 01/21/14 01/08/19 History Metoprolol Tartrate [Lopressor] 50 mg PO BID 01/21/14 01/08/19 History Cholecalciferol [Vitamin D3 (25 1,000 unit PO DAILY 05/03/16 01/08/19 History Mcg = 1000 Iu)] Vits A,C,E/Lutein/Minerals 2 tab PO DAILY 05/03/16 01/08/19 History [Ocuvite with Lutein Tablet] Levothyroxine Sodium [Synthroid] 88 mcg PO DAILY 05/31/17 01/08/19 History ALPRAZolam [Xanax] 0.25 mg PO DAILY PRN #30 06/05/17 01/08/19 Rx Glimepiride [Amaryl] 1 mg PO AC-BRKFST 04/28/18 01/08/19 History metFORMIN HCL [Glucophage] 500 mg PO BID 04/28/18 01/08/19 History Acetaminophen Tab [Tylenol] 500 mg PO Q6HR PRN tab 05/01/18 01/08/19 Rx Acetaminophen with Codeine 1 tab PO Q6H PRN 09/25/18 01/08/19 History [Tylenol w/codeine #3] Nitroglycerin Sl Tabs [Nitrostat] 0.4 mg SUBLINGUAL Q5M PRN #25 tab 10/21/18 01/08/19 Rx amLODIPine [Norvasc] 5 mg PO BID #60 tab 10/21/18 01/08/19 Rx Isosorbide Mononitrate ER [Imdur] 30 mg PO DAILY #30 tab.er.24h 12/22/18 Rx Atorvastatin Calcium [Lipitor] 40 mg PO DAILY 01/08/19 01/08/19 History Furosemide [Lasix] 20 mg PO DAILY 01/08/19 01/08/19 History Losartan [Cozaar] 100 mg PO DAILY 01/08/19 01/08/19 History Sennosides [Senokot] 8.6 mg PO BID 01/08/19 01/08/19 History Allergies Allergy/AdvReac Type Severity Reaction Status Date / Time PAPER TAPE Allergy Unknown Rash/Hives Uncoded 01/08/19 17:25 Physical Exam Vitals: Vital Signs Temp Pulse Pulse Resp BP BP BP 01/09/19 04:00 60 17 143/66 01/08/19 22:46 74 18 01/08/19 21:28 67 18 157/62 01/08/19 20:25 77 18 143/60 01/08/19 20:04 97.4 F L 74 20 199/83 179/84 01/08/19 19:33 01/08/19 17:23 98 F 81 24 163/64 Pulse Ox 01/09/19 04:00 94 L 01/08/19 22:46 01/08/19 21:28 97 01/08/19 20:25 99 01/08/19 20:04 96 01/08/19 19:33 96 01/08/19 17:23 100 Intake and Output 01/08/19 01/09/19 01/09/19 22:59 06:59 14:59 Other: Voiding Method Toilet # Voids 1 2 Weight 70.76 kg PHYSICAL EXAMINATION: GENERAL: 83-year-old female in no acute distress at the time of my examination HEENT: Head is atraumatic, normocephalic. Pupils equal, round. Sclera anicteric. Conjunctiva are clear. Mucous membranes of the mouth are moist. Neck is supple. There is no elevated jugular venous pressure. No carotid bruit is heard. HEART EXAMINATION: Heart S1 S2 1 systolic ejection murmur is heard. CHEST EXAMINATION: Lungs are clear to auscultation and precussion. No chest wall tenderness is noted on palpation or with deep breathing. ABDOMEN: Soft, nontender. Bowel sounds are heard. No organomegaly noted. EXTREMITIES: 2+ peripheral pulses with evidence of peripheral edema and no calf tenderness noted]. NEUROLOGIC [paient is awake, alert and oriented 3 . Results 01/08/19 18:30 01/08/19 18:30 Cardiac Enzymes 01/08/19 01/08/19 01/09/19 Range/Units 18:30 18:30 00:30 AST 20 (14-36) U/L Troponin I <0.012 <0.012 (0.000-0.034) ng/mL Coagulation 01/08/19 Range/Units 18:30 PT 10.0 (9.0-12.0) sec APTT 24.7 (22.0-30.0) sec Lipids 01/09/19 Range/Units 06:43 Triglycerides 135 (<150) mg/dL Cholesterol 161 (<200) mg/dL HDL Cholesterol 82 H (40-60) mg/dL CBC 01/08/19 Range/Units 18:30 WBC 8.1 (3.8-10.6) k/uL RBC 4.13 (3.80-5.40) m/uL Hgb 12.4 (11.4-16.0) gm/dL Hct 36.6 (34.0-46.0) % Plt Count 261 (150-450) k/uL Comprehensive Metabolic Panel 01/08/19 Range/Units 18:30 Sodium 131 L (137-145) mmol/L Potassium 4.1 (3.5-5.1) mmol/L Chloride 96 L (98-107) mmol/L Carbon Dioxide 22 (22-30) mmol/L BUN 17 (7-17) mg/dL Creatinine 0.68 (0.52-1.04) mg/dL Glucose 96 (74-99) mg/dL Calcium 9.3 (8.4-10.2) mg/dL AST 20 (14-36) U/L ALT 15 (9-52) U/L Alkaline Phosphatase 97 (38-126) U/L Total Protein 7.1 (6.3-8.2) g/dL Albumin 4.5 (3.5-5.0) g/dL Current Medications Generic Name Dose Route Start Last Admin Trade Name Freq PRN Reason Stop Dose Admin Acetaminophen 500 mg 01/08/19 21:48 Tylenol Tab PO Q6HR PRN Fever and/ or Mild Pain Acetaminophen/Codeine Phosphate 1 each 01/08/19 21:48 Tylenol #3 PO Q6H PRN Pain Alprazolam 0.25 mg 01/08/19 21:48 Xanax PO DAILY PRN Anxiety Amlodipine Besylate 5 mg 01/08/19 22:10 01/08/19 22:19 Norvasc PO 5 mg BID ANDREW Administration Aspirin 325 mg 01/09/19 09:00 Aspirin PO DAILY [facility] Atorvastatin Calcium 40 mg 01/08/19 22:11 01/08/19 22:19 Lipitor PO 40 mg HS ANDREW Administration Cholecalciferol 1,000 unit 01/09/19 09:00 Vitamin D3 (25 Mcg = 1000 Iu) PO DAILY [facility] Clopidogrel Bisulfate 75 mg 01/09/19 09:00 Plavix PO DAILY [facility] Furosemide 20 mg 01/09/19 09:00 Lasix PO DAILY [facility] Glimepiride 1 mg 01/09/19 07:30 Amaryl PO AC-BRKFST [facility] Sodium Chloride 1,000 mls @ 100 mls/hr 01/08/19 19:45 01/08/19 20:23 Saline 0.9% IV 100 mls/hr .Q10H ANDREW Administration Isosorbide Mononitrate 30 mg 01/09/19 09:00 Imdur PO DAILY [facility] Levothyroxine Sodium 88 mcg 01/09/19 06:30 01/09/19 06:14 Synthroid PO 88 mcg DAILY@0630 ANDREW Administration Losartan Potassium 100 mg 01/09/19 09:00 Cozaar PO DAILY ANDREW Metformin HCl 500 mg 01/09/19 07:30 Glucophage PO AC-BID ANDREW Metoprolol Tartrate 25 mg 01/08/19 21:00 01/08/19 22:18 Lopressor PO 25 mg BID ANDREW Administration Miscellaneous Information 1 each 01/08/19 21:50 Magnesium Per Protocol MISCELLANE DAILY PRN Per Protocol Protocol Multivitamins/Minerals 2 each 01/09/19 09:00 Ivite PO DAILY ANDREW Nitroglycerin 1 inch 01/09/19 00:00 01/09/19 06:15 Nitro-Bid Oint TOPICAL 1 inch Q6HR ANDREW Administration Nitroglycerin 0.4 mg 01/08/19 19:33 Nitrostat SUBLINGUAL Q5M PRN Chest Pain Senna 8.6 mg 01/09/19 09:00 Senokot PO BID ANDREW Intake and Output 01/08/19 01/09/19 01/09/19 22:59 06:59 14:59 Other: Voiding Method Toilet # Voids 1 2 Weight 70.76 kg 01/08/19 18:30 01/08/19 18:30 EKG Interpretations (text) EKG shows a normal sinus rhythm with a right bundle branch block pattern and nonspecific ST-T wave changes Assessment and Plan Plan: Assessment and plan #1 chest pain with some atypical features for acute coronary syndrome. Tropon ins negative 2. Patient recently underwent a cardiac catheterization in October of this year which revealed patent stents and no significant obstructive coronary artery disease. #2 known history of coronary artery disease with prior LAD stenting and 2011 and again in 2017, ostial circumflex stenting in September 2018. #3 hypertension #4 diabetes #5 hyperlipidemia #6 obesity #7 renal insufficiency Plan Patient just had an echocardiogram with Doppler study performed which in October of this year which revealed an ejection fraction of 55-60%. So we will not repeat an echo on this admission. We will decrease the aspirin 81 mg daily, continue Plavix, losartan, Norvasc, increase her home dose of Imdur to 60 mg daily and consider the addition of Ranexa. Further recommendations to follow. DNP note has been reviewed, I agree with a documented findings and plan of care. Patient was seen and examined.
[2019-01-09] MEDS ORDERED: RANOLAZINE 500 MG TAB.ER.12H PO SCH (09:15)
[2019-01-09] MEDS ORDERED: ASPIRIN 81 MG PO SCH (09:30)
[2019-01-09] MEDS ORDERED: ISOSORBIDE MONONITRATE ER 60 MG TAB.ER.24H PO SCH (09:30)
[2019-01-09] MEDS: amLODIPine 5 MG TAB PO SCH (09:34)
[2019-01-09] MEDS: METOPROLOL TARTRATE 25 MG TAB PO SCH (09:34)
[2019-01-09] MEDS: metFORMIN 500 MG TAB PO SCH ×2 (09:34→16:59)
[2019-01-09 11:41] LABS: Glucose,Whole Blood 257 mg/dL (75-99)
[2019-01-09] MEDS: SODIUM CHLORIDE 0.9% 1,000 ML IV SCH (12:02)
--- NOTE | 2019-01-09 12:12 | P.HPIM ---
History of Present Illness 83-year-old female states she developed midsternal chest pain with nausea and sweats yesterday lasting for 4 hours. Was admitted to the emergency room for cardiac evaluation. Patient does have history of coronary disease with WA and stents. 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 Last Myocardial Infarction Date:: 09/2018 History of Any Multi-Drug Resistant Organisms: None Reported Past Surgical History: Back Surgery, Breast Surgery, Heart Catheterization With Stent, Hysterectomy, Orthopedic Surgery, Tubal Ligation Additional Past Surgical History / Comment(s): PCI with a total of 7 stents, low back surgery, L breast benign bx, R rotator cuff repair, R eye cataract removed, multiple bilateral laser eye surgeries, bilateral eye stents-R one fell out, thyroidectomy d/t nodules, temporal artery bx, cervical and lumbar injections. Past Anesthesia/Blood Transfusion Reactions: Previous Problems w/ Anesthesia Additional Past Anesthesia/Blood Transfusion Reaction / Comment(s): hard to wake up Date of Last Stent Placement:: 10/19/18 Past Psychological History: Anxiety Additional Psychological History / Comment(s): Pt has her son, Geoffrey residing with her. She is visually impaired, reads with a lighted magnifying screen. She signs her name occasionally. She is able to manage her own medications. Her sons take her to appts. She ambulates with a walker. Smoking Status: Never smoker Past Alcohol Use History: None Reported Past Drug Use History: None Reported - Past Family History Mother Family Medical History: Myocardial Infarction (WA) Additional Family Medical History / Comment(s): MOTHER OF A WA AT THE AGE OF 57YRS. Brother(s) Family Medical History: Myocardial Infarction (WA) Additional Family Medical History / Comment(s): BROTHER OF A WA AT THE AGE OF 60YRS. Father Family Medical History: No Reported History Additional Family Medical History / Comment(s): FATHER LIVED TO BE 90YRS OLD. Medications and Allergies Home Medications Medication Instructions Recorded Confirmed Type Aspirin 81 mg PO HS 01/21/14 01/08/19 History Clopidogrel [Plavix] 75 mg PO DAILY 01/21/14 01/08/19 History Metoprolol Tartrate [Lopressor] 50 mg PO BID 01/21/14 01/08/19 History Cholecalciferol [Vitamin D3 (25 1,000 unit PO DAILY 05/03/16 01/08/19 History Mcg = 1000 Iu)] Vits A,C,E/Lutein/Minerals 2 tab PO DAILY 05/03/16 01/08/19 History [Ocuvite with Lutein Tablet] Levothyroxine Sodium [Synthroid] 88 mcg PO DAILY 05/31/17 01/08/19 History ALPRAZolam [Xanax] 0.25 mg PO DAILY PRN #30 06/05/17 01/08/19 Rx Glimepiride [Amaryl] 1 mg PO AC-BRKFST 04/28/18 01/08/19 History metFORMIN HCL [Glucophage] 500 mg PO BID 04/28/18 01/08/19 History Acetaminophen Tab [Tylenol] 500 mg PO Q6HR PRN tab 05/01/18 01/08/19 Rx Acetaminophen with Codeine 1 tab PO Q6H PRN 09/25/18 01/08/19 History [Tylenol w/codeine #3] Nitroglycerin Sl Tabs [Nitrostat] 0.4 mg SUBLINGUAL Q5M PRN #25 tab 10/21/18 01/08/19 Rx amLODIPine [Norvasc] 5 mg PO BID #60 tab 10/21/18 01/08/19 Rx Isosorbide Mononitrate ER [Imdur] 30 mg PO DAILY #30 tab.er.24h 12/22/18 Rx Atorvastatin Calcium [Lipitor] 40 mg PO DAILY 01/08/19 01/08/19 History Furosemide [Lasix] 20 mg PO DAILY 01/08/19 01/08/19 History Losartan [Cozaar] 100 mg PO DAILY 01/08/19 01/08/19 History Sennosides [Senokot] 8.6 mg PO BID 01/08/19 01/08/19 History Allergies Allergy/AdvReac Type Severity Reaction Status Date / Time PAPER TAPE Allergy Unknown Rash/Hives Uncoded 01/08/19 17:25 Physical Exam Vitals: Vital Signs Temp Pulse Pulse Resp BP BP BP 01/09/19 12:00 60 17 01/09/19 08:00 98.3 F 66 17 143/77 01/09/19 04:00 60 17 143/66 01/08/19 22:46 74 18 01/08/19 21:28 67 18 157/62 01/08/19 20:25 77 18 143/60 01/08/19 20:04 97.4 F L 74 20 199/83 179/84 01/08/19 19:33 01/08/19 17:23 98 F 81 24 163/64 Pulse Ox 01/09/19 12:00 01/09/19 08:00 94 L 01/09/19 04:00 94 L 01/08/19 22:46 01/08/19 21:28 97 01/08/19 20:25 99 01/08/19 20:04 96 01/08/19 19:33 96 01/08/19 17:23 100 Intake and Output 01/08/19 01/09/19 01/09/19 22:59 06:59 14:59 Output Total 300 Balance -300 Output: Urine 300 Other: Voiding Method Toilet Toilet # Voids 1 2 Weight 70.76 kg - Constitutional General appearance: mild distress - EENT Left eye blind ENT: hard of hearing Ears: bilateral: normal - Neck Neck: normal ROM - Respiratory Respiratory: bilateral: CTA - Cardiovascular Rhythm: regular Abnormal Heart Sounds: systolic murmur - Gastrointestinal General gastrointestinal: soft - Integumentary Integumentary: normal - Neurologic Neurologic: CNII-XII intact - Musculoskeletal Musculoskeletal: generalized weakness - Psychiatric Psychiatric: A&O x's 3, appropriate affect, intact judgment & insight Results CBC & Chem 7: 01/08/19 18:30 01/08/19 18:30 Labs: Abnormal Lab Results - Last 24 Hours (Table) 01/08/19 01/09/19 01/09/19 Range/Units 18:30 05:53 06:43 Sodium 131 L (137-145) mmol/L Chloride 96 L (98-107) mmol/L POC Glucose (mg/dL) 107 H (75-99) mg/dL Magnesium 1.4 L (1.6-2.3) mg/dL HDL Cholesterol 82 H (40-60) mg/dL 01/09/19 01/09/19 Range/Units 06:43 11:26 Sodium (137-145) mmol/L Chloride (98-107) mmol/L POC Glucose (mg/dL) 257 H (75-99) mg/dL Magnesium 2.4 H (1.6-2.3) mg/dL HDL Cholesterol (40-60) mg/dL Chest x-ray: report reviewed Thrombosis Risk Factor Assmnt - Choose All That Apply Any of the Below Risk Factors Present?: Yes Each Factor Represents 1 point: Obesity (BMI >25), Swollen legs (current) Other Risk Factors: Yes Each Risk Factor Represents 3 Points: Age 75 years or older Other congenital or acquired thrombophilia - If yes, enter type in comment: No Thrombosis Risk Factor Assessment Total Risk Factor Score: 5 Thrombosis Risk Factor Assessment Level: High Risk Assessment and Plan Plan: Assessment Unstable angina chest pain troponin negative 2 History of coronary disease with WA and stents History of CVA/TIA Diabetes type 2 Hypertension Hypothyroidism GERD Hard of hearing Left eye blindness Plan Cardiology evaluation
--- NOTE | 2019-01-09 12:14 | P.DS ---
Providers Date of admission: 01/08/19 19:34 Expected date of discharge: 01/09/19 Attending physician: Anthony Cameron Consults: 01/08/19 19:33 Consult Physician Urgent Consulting Provider: Clayton Short Consult Reason/Comments: cp Do you want consulting provider notified?: Yes Primary care physician: Anthony Cameron Hospital Course: Patient was evaluated by cardiology and cleared for discharge medication was adjusted Assessment Atypical chest pain Angina Troponins negative 2 History of coronary disease with WA and stents History of CVA/TIA Diabetes type 2 Hypertension Hypothyroidism GERD Heart of hearing left eye blindness Plan Discharge home to follow-up with family physician Dr. Anthony Cameron and cardiology Medication adjusted Patient Condition at Discharge: Undetermined Plan - Discharge Summary Discharge Rx Participant: No New Discharge Prescriptions: No Action Aspirin 81 mg PO HS Metoprolol Tartrate [Lopressor] 50 mg PO BID Clopidogrel [Plavix] 75 mg PO DAILY Vits A,C,E/Lutein/Minerals [Ocuvite with Lutein Tablet] 2 tab PO DAILY Cholecalciferol [Vitamin D3 (25 Mcg = 1000 Iu)] 1,000 unit PO DAILY Levothyroxine Sodium [Synthroid] 88 mcg PO DAILY ALPRAZolam [Xanax] 0.25 mg PO DAILY PRN #30 PRN Reason: Anxiety metFORMIN HCL [Glucophage] 500 mg PO BID Glimepiride [Amaryl] 1 mg PO AC-BRKFST Acetaminophen Tab [Tylenol] 500 mg PO Q6HR PRN tab PRN Reason: Fever And/ Or Pain Acetaminophen with Codeine [Tylenol w/codeine #3] 1 tab PO Q6H PRN PRN Reason: Pain amLODIPine [Norvasc] 5 mg PO BID #60 tab Nitroglycerin Sl Tabs [Nitrostat] 0.4 mg SUBLINGUAL Q5M PRN #25 tab PRN Reason: Chest Pain Isosorbide Mononitrate ER [Imdur] 30 mg PO DAILY #30 tab.er.24h Atorvastatin Calcium [Lipitor] 40 mg PO DAILY Furosemide [Lasix] 20 mg PO DAILY Losartan [Cozaar] 100 mg PO DAILY Sennosides [Senokot] 8.6 mg PO BID Discharge Medication List Aspirin 81 mg PO HS 01/21/14 [History] Clopidogrel [Plavix] 75 mg PO DAILY 01/21/14 [History] Metoprolol Tartrate [Lopressor] 50 mg PO BID 01/21/14 [History] Cholecalciferol [Vitamin D3 (25 Mcg = 1000 Iu)] 1,000 unit PO DAILY 05/03/16 [History] Vits A,C,E/Lutein/Minerals [Ocuvite with Lutein Tablet] 2 tab PO DAILY 05/03/16 [History] Levothyroxine Sodium [Synthroid] 88 mcg PO DAILY 05/31/17 [History] ALPRAZolam [Xanax] 0.25 mg PO DAILY PRN #30 06/05/17 [Rx] Glimepiride [Amaryl] 1 mg PO AC-BRKFST 04/28/18 [History] metFORMIN HCL [Glucophage] 500 mg PO BID 04/28/18 [History] Acetaminophen Tab [Tylenol] 500 mg PO Q6HR PRN tab 05/01/18 [Rx] Acetaminophen with Codeine [Tylenol w/codeine #3] 1 tab PO Q6H PRN 09/25/18 [History] Nitroglycerin Sl Tabs [Nitrostat] 0.4 mg SUBLINGUAL Q5M PRN #25 tab 10/21/18 [Rx] amLODIPine [Norvasc] 5 mg PO BID #60 tab 10/21/18 [Rx] Isosorbide Mononitrate ER [Imdur] 30 mg PO DAILY #30 tab.er.24h 12/22/18 [Rx] Atorvastatin Calcium [Lipitor] 40 mg PO DAILY 01/08/19 [History] Furosemide [Lasix] 20 mg PO DAILY 01/08/19 [History] Losartan [Cozaar] 100 mg PO DAILY 01/08/19 [History] Sennosides [Senokot] 8.6 mg PO BID 01/08/19 [History] Follow up Appointment(s)/Referral(s): Anthony Cameron MD [Primary Care Provider] - 1-2 days Patient Instructions/Handouts: Chest Pain (ED)
[2019-01-09 13:20] VITALS: BP 127/60; PULSE 66; RESP 16; TEMP 97.9
[2019-01-09 17:13] LABS: Glucose,Whole Blood 78 mg/dL (75-99)
[2019-01-10] MEDS ORDERED: ISOSORBIDE MONONITRATE ER 60 MG TAB.ER.24H PO SCH (09:00)
[2019-01-10] MEDS ORDERED: ASPIRIN 81 MG PO SCH (09:00)
== END 2019-01-09 17:17 | disposition home or self-care (01) ==
LOC: EC 17:18 → 3SCARD 19:34
PROVIDERS: ADMIT Family Medicine; ATTEND Family Medicine
DX: I20.9 Angina pectoris, unspecified (principal); R07.89 Other chest pain; E11.9 Type 2 diabetes mellitus without complications; E66.9 Obesity, unspecified; E78.5 Hyperlipidemia, unspecified; E87.1 Hypo-osmolality and hyponatremia; Z68.31 Body mass index [BMI] 31.0-31.9, adult; I45.10 Unspecified right bundle-branch block; F41.9 Anxiety disorder, unspecified; H35.30 Unspecified macular degeneration; H54.8 Legal blindness, as defined in USA; H91.90 Unspecified hearing loss, unspecified ear; I10 Essential (primary) hypertension; K59.00 Constipation, unspecified; K44.9 Diaphragmatic hernia without obstruction or gangrene; G43.909 Migraine, unspecified, not intractable, without status migrainosus; I69.398 Other sequelae of cerebral infarction; N28.9 Disorder of kidney and ureter, unspecified; H53.8 Other visual disturbances; K21.9 Gastro-esophageal reflux disease without esophagitis; I25.2 Old myocardial infarction; Z79.02 Long term (current) use of antithrombotics/antiplatelets; Z79.82 Long term (current) use of aspirin; Z79.84 Long term (current) use of oral hypoglycemic drugs; Z79.890 Hormone replacement therapy; Z79.899 Other long term (current) drug therapy; Z95.5 Presence of coronary angioplasty implant and graft; Z90.710 Acquired absence of both cervix and uterus; M19.041 Primary osteoarthritis, right hand; M19.042 Primary osteoarthritis, left hand; Z82.49 Family history of ischemic heart disease and other diseases of the circulatory system
CPT/HCPCS: 96361; 96365; 99291; 36415; 93005; 83880; 80061; 80053; 83690; 83735 ×2; 84484 ×2; 85025; 85610; 85730; 71046; G0378 ×2; J3475 ×2

== ENCOUNTER 2019-03-04 00:40 | Observation (INO) | payer MEDICARE, BC ==
[2019-03-04] MEDS ORDERED: methylPREDNISolone SOD SUCCI 125 MG/2 ML VIAL IV STA (00:57)
[2019-03-04] MEDS ORDERED: diphenhydrAMINE 50 MG/ML 1 ML VIAL IVP STA (00:57)
--- NOTE | 2019-03-04 00:59 | ED ---
ENT HPI - General Chief complaint: ENT Stated complaint: Swollen tongue, diff breathing Source: patient Mode of arrival: ambulatory Limitations: no limitations - History of Present Illness Initial comments: Praveena is an 83-year-old female with extensive cardiac history who presents to the emergency department today for evaluation of swelling of her tongue. Patient reports that over the past few months she has had episodes of swelling of her lips or face. She's been evaluated by her primary care physician is had her medications changed. Patient reports that she's not been on any new medications this week. She did have one medication changed to valsartan approximately 3 we eks ago due to the swelling. Patient reports that around 8:00 tonight she noticed that her tongue seemed to be swelling and burning. She called her [id number] who is a nurse who came over and told her to take 50 mg of Benadryl. Patient reports that initially her tongue swelling improved however it then came back at which time she decided to come to the ER for evaluation. Patient reports feeling like her tongue is swollen dry and burning. Patient denies any associated tightness in her chest or shortness of breath though she does feel it is on to swallow. She is clearing her oral secretions. - Related Data Home Medications Medication Instructions Recorded Confirmed Aspirin 81 mg PO HS 01/21/14 01/08/19 Clopidogrel [Plavix] 75 mg PO DAILY 01/21/14 01/08/19 Cholecalciferol [Vitamin D3 (25 1,000 unit PO DAILY 05/03/16 01/08/19 Mcg = 1000 Iu)] Vits A,C,E/Lutein/Minerals 2 tab PO DAILY 05/03/16 01/08/19 [Ocuvite with Lutein Tablet] Levothyroxine Sodium [Synthroid] 88 mcg PO DAILY 05/31/17 01/08/19 Glimepiride [Amaryl] 1 mg PO AC-BRKFST 04/28/18 01/08/19 metFORMIN HCL [Glucophage] 500 mg PO BID 04/28/18 01/08/19 Acetaminophen with Codeine 1 tab PO Q6H PRN 09/25/18 01/08/19 [Tylenol w/codeine #3] Atorvastatin Calcium [Lipitor] 40 mg PO DAILY 01/08/19 01/08/19 Furosemide [Lasix] 20 mg PO DAILY 01/08/19 01/08/19 Losartan [Cozaar] 100 mg PO DAILY 01/08/19 01/08/19 Sennosides [Senokot] 8.6 mg PO BID 01/08/19 01/08/19 Previous Rx's Medication Instructions Recorded ALPRAZolam [Xanax] 0.25 mg PO DAILY PRN #30 06/05/17 Acetaminophen Tab [Tylenol] 500 mg PO Q6HR PRN tab 05/01/18 Nitroglycerin Sl Tabs [Nitrostat] 0.4 mg SUBLINGUAL Q5M PRN #25 tab 10/21/18 amLODIPine [Norvasc] 5 mg PO BID #60 tab 10/21/18 Isosorbide Mononitrate ER [Imdur] 60 mg PO DAILY #30 tab.er.24h 01/09/19 Metoprolol Tartrate [Lopressor] 25 mg PO BID #60 tab 01/09/19 Nitroglycerin Sl Tabs [Nitrostat] 0.4 mg SUBLINGUAL Q5M PRN tab 01/09/19 Ranolazine [Ranexa] 500 mg PO Q12HR #60 tab.er.12h 01/09/19 Allergies Allergy/AdvReac Type Severity Reaction Status Date / Time PAPER TAPE Allergy Unknown Rash/Hives Uncoded 03/04/19 00:47 Review of Systems ROS Statement: Those systems with pertinent positive or pertinent negative responses have been documented in the HPI. ROS Other: All systems not noted in ROS Statement are negative. 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 Last Myocardial Infarction Date:: 09/2018 History of Any Multi-Drug Resistant Organisms: None Reported Past Surgical History: Back Surgery, Breast Surgery, Heart Catheterization With Stent, Hysterectomy, Orthopedic Surgery, Tubal Ligation Additional Past Surgical History / Comment(s): PCI with a total of 7 stents, low back surgery, L breast benign bx, R rotator cuff repair, R eye cataract removed, multiple bilateral laser eye surgeries, bilateral eye stents-R one fell out, thyroidectomy d/t nodules, temporal artery bx, cervical and lumbar injections. Past Anesthesia/Blood Transfusion Reactions: Previous Problems w/ Anesthesia Additional Past Anesthesia/Blood Transfusion Reaction / Comment(s): hard to wake up Date of Last Stent Placement:: 10/19/18 Past Psychological History: Anxiety Smoking Status: Never smoker Past Alcohol Use History: None Reported Past Drug Use History: None Reported - Past Family History Mother Family Medical History: Myocardial Infarction (CT) Additional Family Medical History / Comment(s): MOTHER OF A CT AT THE AGE OF 57YRS. Brother(s) Family Medical History: Myocardial Infarction (CT) Additional Family Medical History / Comment(s): BROTHER OF A CT AT THE AGE OF 60YRS. Father Family Medical History: No Reported History Additional Family Medical History / Comment(s): FATHER LIVED TO BE 90YRS OLD. General Exam - General Exam Comments Initial Comments: Physical Exam GENERAL: Patient is well-developed and well-nourished. Patient is nontoxic and well-hydrated and is in no distress HENT: Normocephalic, Atraumatic. TMs normal bilaterally Normal nasal mucosa Angioedema of the tongue, however patient is able to close the mouth No angioedema of the uvula noted No angioedema of the lips EYES: PERRL, EOMI PULMONARY: Unlabored respirations. No audible rales rhonchi or wheezing was noted. No stridor CARDIOVASCULAR: There is a regular rate and rhythm without any murmurs gallops or rubs. Warm and well perfused extremities ABDOMEN: Soft and nontender with normal bowel sounds. SKIN: Skin is clear with no lesions or rashes and otherwise unremarkable. : Deferred NEUROLOGIC: Patient is alert and oriented x3. Moving all extremities spontaneously MUSCULOSKELETAL: Normal extremities with adequate strength and full range of motion. No lower extremity swelling or edema. No calf tenderness. PSYCHIATRIC: Normal psychiatric evaluation Limitations: no limitations Course Vital Signs 03/04/19 03/04/19 03/04/19 00:44 01:50 02:00 Temperature 98.3 F 98.0 F 98.2 F Pulse Rate 73 70 69 Respiratory 18 18 18 Rate Blood Pressure 169/73 146/64 154/65 O2 Sat by Pulse 97 95 Oximetry - Reevaluation(s) Reevaluation #1: Patient was reevaluated she has received steroids, Benadryl and is receiving fresh frozen plasma. Angioedema is not worsening of the tongue seems to be unchanged. She still able to tolerate oral secretion she has had a couple of ice chips which made her Feel somewhat better. He is able to ambulate indepen dently to the restroom. 03/04/19 02:23 Medical Decision Making - Lab Data Result diagrams: 03/04/19 00:55 03/04/19 00:55 Lab Results 03/04/19 03/04/19 03/04/19 Range/Units 00:55 00:55 00:55 WBC 6.7 (3.8-10.6) k/uL RBC 4.55 (3.80-5.40) m/uL Hgb 13.2 (11.4-16.0) gm/dL Hct 39.8 (34.0-46.0) % MCV 87.4 (80.0-100.0) fL MCH 29.0 (25.0-35.0) pg MCHC 33.1 (31.0-37.0) g/dL RDW 12.9 (11.5-15.5) % Plt Count 318 (150-450) k/uL Neutrophils % 45 % Lymphocytes % 37 % Monocytes % 9 % Eosinophils % 5 % Basophils % 1 % Neutrophils # 3.0 (1.3-7.7) k/uL Lymphocytes # 2.5 (1.0-4.8) k/uL Monocytes # 0.6 (0-1.0) k/uL Eosinophils # 0.4 (0-0.7) k/uL Basophils # 0.1 (0-0.2) k/uL Sodium 134 L (137-145) mmol/L Potassium 4.5 (3.5-5.1) mmol/L Chloride 95 L (98-107) mmol/L Carbon Dioxide 26 (22-30) mmol/L Anion Gap 13 mmol/L BUN 21 H (7-17) mg/dL Creatinine 0.86 (0.52-1.04) mg/dL Est GFR (CKD-EPI)AfAm 72 (>60 ml/min/1.73 sqM) Est GFR (CKD-EPI)NonAf 62 (>60 ml/min/1.73 sqM) Glucose 125 H (74-99) mg/dL Calcium 9.3 (8.4-10.2) mg/dL Total Bilirubin 0.6 (0.2-1.3) mg/dL AST 21 (14-36) U/L ALT 17 (9-52) U/L Alkaline Phosphatase 128 H (38-126) U/L Total Protein 7.9 (6.3-8.2) g/dL Albumin 4.9 (3.5-5.0) g/dL Blood Type Cancelled Blood Type Confirm Blood Type Recheck Cancelled Antibody Screen Cancelled Transfuse Plasma 03/04/2019 Spec Expiration Date Cancelled 03/04/19 03/04/19 Range/Units 00:55 01:39 WBC (3.8-10.6) k/uL RBC (3.80-5.40) m/uL Hgb (11.4-16.0) gm/dL Hct (34.0-46.0) % MCV (80.0-100.0) fL MCH (25.0-35.0) pg MCHC (31.0-37.0) g/dL RDW (11.5-15.5) % Plt Count (150-450) k/uL Neutrophils % % Lymphocytes % % Monocytes % % Eosinophils % % Basophils % % Neutrophils # (1.3-7.7) k/uL Lymphocytes # (1.0-4.8) k/uL Monocytes # (0-1.0) k/uL Eosinophils # (0-0.7) k/uL Basophils # (0-0.2) k/uL Sodium (137-145) mmol/L Potassium (3.5-5.1) mmol/L Chloride (98-107) mmol/L Carbon Dioxide (22-30) mmol/L Anion Gap mmol/L BUN (7-17) mg/dL Creatinine (0.52-1.04) mg/dL Est GFR (CKD-EPI)AfAm (>60 ml/min/1.73 sqM) Est GFR (CKD-EPI)NonAf (>60 ml/min/1.73 sqM) Glucose (74-99) mg/dL Calcium (8.4-10.2) mg/dL Total Bilirubin (0.2-1.3) mg/dL AST (14-36) U/L ALT (9-52) U/L Alkaline Phosphatase (38-126) U/L Total Protein (6.3-8.2) g/dL Albumin (3.5-5.0) g/dL Blood Type A Positive Blood Type Confirm A Positive Blood Type Recheck CABO Indicated Antibody Screen NEGATIVE Transfuse Plasma Spec Expiration Date 03/07/2019 - 4857 Critical Care Time Critical Care Time: Yes Total Critical Care Time: 30 Critical Care Time: Critical Care Time 30 minutes Critical care time was exclusive of separately billable procedures and treating other patients and teaching time. Critical care was necessary to treat or prevent imminent or life-threatening deterioration. Given the critical condition in which the patient arrived, the patient was immediately assessed by myself and the nurse, and cardiac monitoring initiated due to the potential for rapid decompensation of the patient's clinical condition. During the course of the patients stay, I spent a considerable amount of time at the bedside performing serial re-evaluations of the patient's hemodynamic and clinical status because of the recognized potential threat to life or limb in this condition. I then had a chance to review not only all of the available current laboratory and radiographic studies obtained today, but I also reviewed old records available to me at the time. Additionally, any ancillary information available including director of scientific research records were reviewed. Sequential vital signs were obtained. Disposition Clinical Impression: Angioedema Disposition: ADMITTED IP TO THIS [facility] Condition: Stable Is patient prescribed a controlled substance at d/c from ED?: No Referrals: Anthony Cameron MD [Primary Care Provider] - 1-2 days
[2019-03-04 01:09] LABS: Basophils # (A) 0.1 k/uL (0-0.2); Basophils % (A) 1 %; Eosinophils # (A) 0.4 k/uL (0-0.7); Eosinophils % (A) 5 %; HCT 39.8 % (34.0-46.0); HGB 13.2 gm/dL (11.4-16.0); Lymphocytes # (A) 2.5 k/uL (1.0-4.8); Lymphocytes % (A) 37 %; MCHC 33.1 g/dL (31.0-37.0); MCV 87.4 fL (80.0-100.0); Mean Platelet Volume 6.6; Monocytes # (A) 0.6 k/uL (0-1.0); Monocytes % (A) 9 %; Neutrophils % (A) 45 %; Platelet Count 318 k/uL (150-450); RBC 4.55 m/uL (3.80-5.40); RDW 12.9 % (11.5-15.5); WBC 6.7 k/uL (3.8-10.6)
[2019-03-04 01:18] LABS: Albumin 4.9 g/dL (3.5-5.0); Calcium 9.3 mg/dL (8.4-10.2); Potassium 4.5 mmol/L (3.5-5.1); Total Bilirubin 0.6 mg/dL (0.2-1.3); Total Protein 7.9 g/dL (6.3-8.2)
[2019-03-04] MEDS ORDERED: NALOXONE 0.4 MG/ML 1 ML VIAL IV PRN (02:10)
[2019-03-04] MEDS ORDERED: ALPRAZolam 1 MG TAB PO STA (03:40)
[2019-03-04] MEDS ORDERED: ALPRAZolam 0.5 MG TAB PO STA (03:41)
[2019-03-04 15:34] VITALS: BP 156/74; PULSE 92; RESP 18; TEMP 97.5
--- NOTE | 2019-03-04 20:44 | HP ---
HISTORY AND PHYSICAL This is a combination history and physical and discharge summary. DATE OF SERVICE: 03/04/2019 CHIEF COMPLAINTS: Swollen tongue and difficulty breathing. HISTORY OF PRESENT ILLNESS: This 83-year-old woman with a past medical history of multiple medical problems including history of CAD, COPD, CVA, TIA, diabetes type 2, GERD, hearing defect, hypertension, hyperlipidemia, history of DJD, history of multiple admissions, CAD stent being followed by Dr. Anthony Cameron in the outpatient setting was complaining of shortness of breath. The patient also had a feeling of tingling and as well as tongue swelling and the patient came to [facility]. Angioedema was suspected. Patient given IV steroids and IV antihistamines, improving significantly. Patient also had a similar episode previously. The patient apparently also had medications 2 weeks ago, which is not clear at this point. The patient being followed by Dr. Anthony Cameron in the outpatient setting. There is no history of fever, rigors or chills. No history of headache, loss of consciousness, chest pain, palpitations or hematochezia or melena at this time. The patient is improving significantly. Patient is keen on going home at this time. PAST MEDICAL HISTORY: History of CAD, CVA, TIA, diabetes, GERD, hearing deficits, hypertension, hyperlipidemia, history of CAD stent. MEDICATIONS: Home medications are: 1. Nitrostat 0.4 sublingual p.r.n. 2. Diovan. 3. Xanax 0.5 daily p.r.n. 4. Multivitamins 1 daily. 5. Senokot 8.6 b.i.d. 6. Vitamin D3. 7. Tylenol with codeine. 8. Norvasc 5 mg p.o. b.i.d. 9. Lopressor 25 mg p.o. daily. 10.Plavix 75 mg p.o. daily. 11.Lipitor 40 mg. 12.Aspirin 81 mg daily. 13.Glucophage 500 mg p.o. b.i.d. 14.Synthroid 88 mcg p.o. daily. 15.Imdur 60 mg p.o. daily. 16.Amaryl 1 mg a.c. breakfast. 17.Lasix 20 mg daily. 18.Medrol Dosepak 4 mg p.r.n. 19.Benadryl 50 mg b.i.d. p.r.n. ALLERGIES: PAPER TAPE. FAMILY HISTORY: History of myocardial infarction in the family. SOCIAL HISTORY: No history of smoking. No history of alcohol intake. REVIEW OF SYSTEMS: ENT: No diminished vision. No diminished hearing. CARDIOVASCULAR system. As mentioned earlier. RESPIRATIONS: As mentioned earlier. GI no nausea or vomiting. no dysuria. NERVOUS SYSTEM: No numbness or weakness. ALLERGY/IMMUNOLOGY: No history of asthma or hayfever. MUSCULOSKELETAL as mentioned earlier. HEMATOLOGY/ONCOLOGY: No history of anemia. ENDOCRINE: Hypothyroidism and diabetes. CONSTITUTIONAL: As mentioned earlier. DERMATOLOGY: Negative. RHEUMATOLOGY negative. PSYCHIATRY as mentioned earlier. PHYSICAL EXAMINATION: Alert and oriented x3. Pulse 92, blood pressure 156/74, respiration 18, temp 97.4, pulse ox 94% on room air. HEENT: Conjunctivae normal. Oral mucosa moist. NECK is some minimal facial and tongue swelling. The patient is complaining of objective swelling noted. NECK is no jugular venous distention. No carotid bruit. No lymph node enlargement. CARDIOVASCULAR SYSTEM: S1, S2 muffled. RESPIRATION: Breath sounds diminished in the bases. A few scattered rhonchi. No crackles. ABDOMEN: Soft, nontender. No mass palpable. LEGS: No edema. No swelling. NERVOUS SYSTEM: Higher functions as mentioned earlier. Moves all four limbs. No focal motor or sensory deficits. LYMPHATICS: No lymph nodes palpable in the neck, axillae or groin. SKIN: No ulcers, rashes or bleeding. JOINTS: No active deforming arthropathy. LABS: CBC within normal limits. Sodium 134, potassium 0.5. ASSESSMENT: 1. 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 2. Hyponatremia. 3. History of coronary artery disease. 4. History of cerebrovascular accident/ transient ischemic attack. 5. Diabetes type 2. 6. History of gastroesophageal reflux disease. 7. Hearing deficiency. 8. Hypertension. 9. Hyperlipidemia. 10.Myocardial infarction. 11.History of degenerative joint disease. 12.History of coronary artery disease/ stent. 13.History of anxiety. RECOMMENDATIONS AND DISCUSSION: In this 83-year-old woman who presented with multiple medical issues, at this time, we will monitor the patient closely. The exact etiology of angioedema at this time. I recommend to stop Diovan and continue the rest of medications. I would also recommend C4 and C1 inhibitor, protein assay and as well as to rule out possible heredity angioma because of recurrence of symptoms. Otherwise, recommend close follow up with Dr. Anthony Cameron in the outpatient setting. Discussed at length with the patient and staff. DISCHARGE MEDICATIONS: Will be as follows: 1. Amaryl 1 mg a.c. breakfast. 2. Aspirin 81 mg q.h.s. 3. Glucophage 500 mg p.o. b.i.d. 4. Lasix 20 mg p.o. daily. 5. Lipitor 40 mg p.o. daily. 6. Ocuvite with lutein 2 tablets p.o. daily. 7. Plavix 75 mg p.o. daily. 8. Senokot 8.6 p.o. daily. 9. Synthroid 88 mcg p.o. daily. 10.Tylenol with #3 for pain 1 p.o. q.6h p.r.n. 11.Vitamin D 25,000 units daily. 12.Benadryl 50 q.6h p.r.n. 13.Imdur 60 mg p.o. daily. 14.Lopressor 25 mg p.o. b.i.d. 15.Medrol Dosepak as directed. 16.CBC, BMP with Dr. Cameron. 17.Nitrostat 0.4 sublingual mg p.r.n. 18.Norvasc 5 mg p.o. b.i.d. 19.Xanax 0.5 daily p.r.n. Once again, the patient will be discharged in stable condition with guarded prognosis. MMODL / IJN: [id number] /
[2019-03-06 19:12] LABS: C1 Esterase Inhibitor, Protein 38 mg/dL (21-39)
== END 2019-03-04 18:07 ==
LOC: EC 00:40 → 1SOBS 02:10
PROVIDERS: ADMIT Family Medicine; ATTEND Family Medicine
DX: R22.0 Localized swelling, mass and lump, head (principal); R06.02 Shortness of breath; R20.2 Paresthesia of skin; K21.9 Gastro-esophageal reflux disease without esophagitis; J44.9 Chronic obstructive pulmonary disease, unspecified; I25.10 Atherosclerotic heart disease of native coronary artery without angina pectoris; H91.90 Unspecified hearing loss, unspecified ear; E11.9 Type 2 diabetes mellitus without complications; I10 Essential (primary) hypertension; E87.1 Hypo-osmolality and hyponatremia; E78.5 Hyperlipidemia, unspecified; M19.90 Unspecified osteoarthritis, unspecified site; E03.9 Hypothyroidism, unspecified; F41.9 Anxiety disorder, unspecified; H26.9 Unspecified cataract; M19.041 Primary osteoarthritis, right hand; M19.042 Primary osteoarthritis, left hand; M47.9 Spondylosis, unspecified; I69.998 Other sequelae following unspecified cerebrovascular disease; H54.8 Legal blindness, as defined in USA; H35.30 Unspecified macular degeneration; K44.9 Diaphragmatic hernia without obstruction or gangrene; G43.909 Migraine, unspecified, not intractable, without status migrainosus; K59.00 Constipation, unspecified; Z79.82 Long term (current) use of aspirin; Z79.02 Long term (current) use of antithrombotics/antiplatelets; Z79.890 Hormone replacement therapy; Z79.84 Long term (current) use of oral hypoglycemic drugs; Z79.899 Other long term (current) drug therapy; Z91.048 Other nonmedicinal substance allergy status; Z95.5 Presence of coronary angioplasty implant and graft; Z90.710 Acquired absence of both cervix and uterus; I25.2 Old myocardial infarction; Z98.41 Cataract extraction status, right eye; Z82.49 Family history of ischemic heart disease and other diseases of the circulatory system
CPT/HCPCS: 96374; 96375; 99291; 36415; 86900; 86901; 85303; 86160 ×2; 80053; 86161; 85025; 86850; 86140; G0378; P9059; J1200; J2930

== ENCOUNTER 2019-03-13 12:10 | Observation (INO) | payer MEDICARE, BC ==
[2019-03-13] MEDS ORDERED: diphenhydrAMINE 50 MG CAP PO STA (12:45)
[2019-03-13] MEDS ORDERED: methylPREDNISolone SOD SUCCI 125 MG/2 ML VIAL IV STA (12:45)
[2019-03-13] MEDS ORDERED: FAMOTIDINE 20 MG/2 ML VIAL IV STA (12:45)
[2019-03-13] MEDS ORDERED: SODIUM CHLORIDE 0.9% 1,000 ML IV STA ×2 (12:45→14:01)
--- NOTE | 2019-03-13 12:45 | ED ---
Allergic Reaction HPI - General Chief complaint: Allergic Reaction Stated complaint: facial swelling Time Seen by Provider: 03/13/19 12:23 Source: patient, family, RN notes reviewed, old records reviewed Mode of arrival: wheelchair Limitations: no limitations - History of Present Illness Initial Comments: This is a 83-year-old female the ER for evaluation. Patient presents today for evaluation of ALLERGIC reaction. Patient has left upper lip swelling. Patient has history of high blood pressure was was on losartan, and CHUNG inhibitor up until he can a half ago which she stopped secondary to ALLERGIC reaction versus angioedema. Patient on any antihistamines currently no steroids currently. Denies any pain difficulty breathing or the tongue swelling MD Complaint: allergic reaction, facial swelling -: hour(s) Exposure: unknown Symptoms: facial swelling, lip swelling Severity: moderate Treatment Prior to Arrival: patrick Previous Allergy History: prior ED visit(s) - Related Data Home Medications Medication Instructions Recorded Confirmed Aspirin 81 mg PO HS 01/21/14 03/13/19 Clopidogrel [Plavix] 75 mg PO DAILY 01/21/14 03/13/19 Cholecalciferol [Vitamin D3 (25 1,000 unit PO DAILY 05/03/16 03/13/19 Mcg = 1000 Iu)] Vits A,C,E/Lutein/Minerals 2 tab PO DAILY 05/03/16 03/13/19 [Ocuvite with Lutein Tablet] Levothyroxine Sodium [Synthroid] 88 mcg PO DAILY 05/31/17 03/13/19 Glimepiride [Amaryl] 1 mg PO AC-BRKFST 04/28/18 03/13/19 metFORMIN HCL [Glucophage] 500 mg PO BID 04/28/18 03/13/19 Acetaminophen with Codeine 1 tab PO Q6H PRN 09/25/18 03/13/19 [Tylenol w/codeine #3] Atorvastatin Calcium [Lipitor] 40 mg PO DAILY 01/08/19 03/13/19 Furosemide [Lasix] 20 mg PO DAILY 01/08/19 03/13/19 Sennosides [Senokot] 8.6 mg PO BID 01/08/19 03/13/19 Previous Rx's Medication Instructions Recorded ALPRAZolam [Xanax] 0.25 mg PO DAILY PRN #30 06/05/17 Nitroglycerin Sl Tabs [Nitrostat] 0.4 mg SUBLINGUAL Q5M PRN #25 tab 10/21/18 amLODIPine [Norvasc] 5 mg PO BID #60 tab 10/21/18 Isosorbide Mononitrate ER [Imdur] 60 mg PO DAILY #30 tab.er.24h 01/09/19 Metoprolol Tartrate [Lopressor] 25 mg PO BID #60 tab 01/09/19 Allergies Allergy/AdvReac Type Severity Reaction Status Date / Time PAPER TAPE Allergy Unknown Rash/Hives Uncoded 03/13/19 13:03 Review of Systems ROS Statement: Those systems with pertinent positive or pertinent negative responses have been documented in the HPI. ROS Other: All systems not noted in ROS Statement are negative. 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 Last Myocardial Infarction Date:: 09/2018 History of Any Multi-Drug Resistant Organisms: None Reported Past Surgical History: Back Surgery, Breast Surgery, Heart Catheterization With Stent, Hysterectomy, Orthopedic Surgery, Tubal Ligation Additional Past Surgical History / Comment(s): PCI with a total of 7 stents, low back surgery, L breast benign bx, R rotator cuff repair, R eye cataract removed, multiple bilateral laser eye surgeries, bilateral eye stents-R one fell out, thyroidectomy d/t nodules, temporal artery bx, cervical and lumbar injections. Past Anesthesia/Blood Transfusion Reactions: Previous Problems w/ Anesthesia Additional Past Anesthesia/Blood Transfusion Reaction / Comment(s): hard to wake up Date of Last Stent Placement:: 10/19/18 Past Psychological History: Anxiety Smoking Status: Never smoker - Past Family History Mother Family Medical History: Myocardial Infarction ([place]) Additional Family Medical History / Comment(s): MOTHER OF A [place] AT THE AGE OF 57YRS. Brother(s) Family Medical History: Myocardial Infarction ([place]) Additional Family Medical History / Comment(s): BROTHER OF A [place] AT THE AGE OF 60YRS. Father Family Medical History: No Reported History Additional Family Medical History / Comment(s): FATHER LIVED TO BE 90YRS OLD. General Exam - General Exam Comments Initial Comments: Flip swelling, no tongue swelling, no stridor Limitations: no limitations General appearance: alert, in no apparent distress Head exam: Present: atraumatic, normocephalic, normal inspection Eye exam: Present: normal appearance, PERRL, EOMI. Absent: scleral icterus, conjunctival injection, periorbital swelling ENT exam: Present: normal exam, mucous membranes moist Neck exam: Present: normal inspection. Absent: tenderness, meningismus, lymphadenopathy Respiratory exam: Present: normal lung sounds bilaterally. Absent: respiratory distress, wheezes, rales, rhonchi, stridor Cardiovascular Exam: Present: regular rate, normal rhythm, normal heart sounds. Absent: systolic murmur, diastolic murmur, rubs, gallop, clicks GI/Abdominal exam: Present: soft, normal bowel sounds. Absent: distended, tenderness, guarding, rebound, rigid Extremities exam: Present: normal inspection, full ROM, normal capillary refill. Absent: tenderness, pedal edema, joint swelling, calf tenderness Back exam: Present: normal inspection Neurological exam: Present: alert, oriented X3, CN II-XII intact Psychiatric exam: Present: normal affect, normal mood Skin exam: Present: warm, dry, intact, normal color. Absent: rash Course Vital Signs 03/13/19 12:17 Temperature 98.0 F Pulse Rate 66 Respiratory 16 Rate Blood Pressure 126/69 O2 Sat by Pulse 98 Oximetry - Reevaluation(s) Reevaluation #1: 03/13/19 14:57 Adequate record and prior hospitalization or reviewed Reevaluation #2: 03/13/19 14:57 Patient reiterated that she has been off losartan since last reaction Medical Decision Making - Medical Decision Making 83 female will admit for monitoring of ALLERGIC reaction, angioedema. Disposition Clinical Impression: Allergic reaction, Facial swelling, Angioedema Disposition: ADMITTED IP TO THIS [facility] Condition: Good Is patient prescribed a controlled substance at d/c from ED?: No
[2019-03-13] MEDS ORDERED: DEXAMETHASONE SOD PHOSPHATE 10 MG/ML 1 ML VIAL IV STA (14:01)
[2019-03-13] MEDS ORDERED: diphenhydrAMINE 50 MG/ML 1 ML VIAL IVP PRN (14:01)
[2019-03-13] MEDS ORDERED: LORazepam 2 MG/ML INJ IV STA (14:04)
[2019-03-13] MEDS ORDERED: LORazepam 2 MG/ML INJ IV PRN (14:04)
--- NOTE | 2019-03-13 15:12 | P.HPIM ---
History of Present Illness Chief Complaint: ALLERGIC reaction This very pleasant 83-year-old female who comes into the ER for above-mentioned complaint. The patient says that she notices that her left side of the face is getting swollen up. Also she has swelling on the upper lip on the left side. She said that she had this similar issue while ago and she was put on prednisone. She said that her doctors trying to figure out what is causing her and trying to eliminate medications one by one. She is currently off of losartan. She said that she is noticing that whenever she takes this Crystal light however which flavors the water, she is having these reactions. She does not complain of any tongue swelling, she does not complain of any throat scratching or difficulty swallowing, she does not complain of any blurry vision, no lightheadedness no dizziness, no chest pain racing heart, no cough no shortness of breath, no abdominal pain, nausea and vomiting, or diarrhea constipation, no tingling numbness of any of the extremities, no itch no rash. Next ER course pulse 66 respiration 66 blood pressure 126/69 satting 98% on room air. She was given dexamethasone, Benadryl and Pepcid in the ER which helped improve the symptoms. The patient says that her symptoms are improving but are not completely gone away. She was is admitted for observation for further admission and management. 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 Last Myocardial Infarction Date:: 09/2018 History of Any Multi-Drug Resistant Organisms: None Reported Past Surgical History: Back Surgery, Breast Surgery, Heart Catheterization With Stent, Hysterectomy, Orthopedic Surgery, Tubal Ligation Additional Past Surgical History / Comment(s): PCI with a total of 7 stents, low back surgery, L breast benign bx, R rotator cuff repair, R eye cataract removed, multiple bilateral laser eye surgeries, bilateral eye stents-R one fell out, thyroidectomy d/t nodules, temporal artery bx, cervical and lumbar injections. Past Anesthesia/Blood Transfusion Reactions: Previous Problems w/ Anesthesia Additional Past Anesthesia/Blood Transfusion Reaction / Comment(s): hard to wake up Date of Last Stent Placement:: 10/19/18 Past Psychological History: Anxiety Smoking Status: Never smoker - Past Family History Mother Family Medical History: Myocardial Infarction ([place]) Additional Family Medical History / Comment(s): MOTHER OF A [place] AT THE AGE OF 57YRS. Brother(s) Family Medical History: Myocardial Infarction ([place]) Additional Family Medical History / Comment(s): BROTHER OF A [place] AT THE AGE OF 60YRS. Father Family Medical History: No Reported History Additional Family Medical History / Comment(s): FATHER LIVED TO BE 90YRS OLD. Medications and Allergies Home Medications Medication Instructions Recorded Confirmed Type Aspirin 81 mg PO HS 01/21/14 03/13/19 History Clopidogrel [Plavix] 75 mg PO DAILY 01/21/14 03/13/19 History Cholecalciferol [Vitamin D3 (25 1,000 unit PO DAILY 05/03/16 03/13/19 History Mcg = 1000 Iu)] Vits A,C,E/Lutein/Minerals 2 tab PO DAILY 05/03/16 03/13/19 History [Ocuvite with Lutein Tablet] Levothyroxine Sodium [Synthroid] 88 mcg PO DAILY 05/31/17 03/13/19 History ALPRAZolam [Xanax] 0.25 mg PO DAILY PRN #30 06/05/17 03/13/19 Rx Glimepiride [Amaryl] 1 mg PO AC-BRKFST 04/28/18 03/13/19 History metFORMIN HCL [Glucophage] 500 mg PO BID 04/28/18 03/13/19 History Acetaminophen with Codeine 1 tab PO Q6H PRN 09/25/18 03/13/19 History [Tylenol w/codeine #3] Nitroglycerin Sl Tabs [Nitrostat] 0.4 mg SUBLINGUAL Q5M PRN #25 tab 10/21/18 03/13/19 Rx amLODIPine [Norvasc] 5 mg PO BID #60 tab 10/21/18 03/13/19 Rx Atorvastatin Calcium [Lipitor] 40 mg PO DAILY 01/08/19 03/13/19 History Furosemide [Lasix] 20 mg PO DAILY 01/08/19 03/13/19 History Sennosides [Senokot] 8.6 mg PO BID 01/08/19 03/13/19 History Isosorbide Mononitrate ER [Imdur] 60 mg PO DAILY #30 tab.er.24h 01/09/19 03/13/19 Rx Metoprolol Tartrate [Lopressor] 25 mg PO BID #60 tab 01/09/19 03/13/19 Rx Allergies Allergy/AdvReac Type Severity Reaction Status Date / Time PAPER TAPE Allergy Unknown Rash/Hives Uncoded 03/13/19 13:03 Physical Exam Vitals: Vital Signs Temp Pulse Resp BP Pulse Ox 03/13/19 12:17 98.0 F 66 16 126/69 98 Intake and Output 03/13/19 03/13/19 03/13/19 06:59 14:59 22:59 Other: Weight 70.76 kg On exam, alert and oriented x3. HEENT: Conjunctivae normal. eyes normal. Patient has swelling of her left upper lip and the swelling of the left side of the face NECK: No JVD. No thyroid enlargement. No LNs CARDIOVASCULAR: S1, S2 positive RESPIRATION: Breath sounds diminished in the bases. No rhonchi or crackles. No bronchial breathing. ABDOMEN: Soft, nontender . No guarding. no masses palpable. No ascites, No hepatosplenomegaly.Bowel sounds heard. LEGS: No edema. no swelling NERVOUS SYSTEM: Cranial N 2-12 grossly normal. Moves all 4 limbs. No focal deficits. No sensory deficit. No signs of cerebellar dysfucntion. Skin: no ulcer no rash Joints: No active swelling. No inflammation. Lymphatic system. No LN neck axilla or groin. Assessment and Plan Assessment: - Angioedema - Hypertension - History of CAD - History of CVA -Diabetes - Hypertension - Hyperlipidemia - History of CAD with stents Plan - We'll admit the patient to observation with telemetry - We'll continue dexamethasone and Benadryl and Pepcid - We'll continue to monitor her symptoms - We'll hold off on the patient's losartan for now - We'll continue rest of the patient's medications - DVT and GI prophylaxis - We will order for lab work in the morning - Patient for now wants to be full code
[2019-03-13] MEDS: SODIUM CHLORIDE 0.9% 1,000 ML IV ONE ×2 (15:37→16:20)
[2019-03-13 16:55] LABS: Glucose,Whole Blood 263 mg/dL (75-99)
[2019-03-13] MEDS: DEXAMETHASONE SOD PHOSPHATE 4 MG/ML 1 ML VIAL IV SCH ×2 (17:44→23:27)
[2019-03-13] MEDS ORDERED: Acetaminophen-Codeine 300-30mg TAB PO PRN (17:56)
[2019-03-13] MEDS ORDERED: NITROGLYCERIN SL TABS 0.4 MG TAB SUBLINGUAL PRN (17:56)
[2019-03-13] MEDS ORDERED: ALPRAZolam 0.25 MG TAB PO PRN (17:57)
[2019-03-13 20:26] LABS: Glucose,Whole Blood 342 mg/dL (75-99)
[2019-03-13] MEDS ORDERED: ASPIRIN 81 MG PO SCH (21:00)
[2019-03-13] MEDS: METOPROLOL TARTRATE 25 MG TAB PO SCH (21:18)
[2019-03-13] MEDS: amLODIPine 5 MG TAB PO SCH (21:18)
[2019-03-13] MEDS: SENNOSIDES 8.6 MG TAB PO SCH (21:18)
[2019-03-13] MEDS: FAMOTIDINE 20 MG/2 ML VIAL IV SCH (21:18)
[2019-03-13] MEDS: metFORMIN 500 MG TAB PO SCH (21:18)
[2019-03-13 23:26] LABS: Glucose,Whole Blood 273 mg/dL (75-99)
[2019-03-13] MEDS: INSULIN ASPART (NovoLOG) 100 UNIT/ML VIAL SQ SCH (23:27)
[2019-03-14 04:31] LABS: Glucose,Whole Blood 266 mg/dL (75-99)
[2019-03-14] MEDS: DEXAMETHASONE SOD PHOSPHATE 4 MG/ML 1 ML VIAL IV SCH ×2 (05:41→12:21)
[2019-03-14] MEDS ORDERED: LEVOTHYROXINE 88 MCG TAB PO SCH (06:30)
[2019-03-14 06:47] LABS: Glucose,Whole Blood 245 mg/dL (75-99)
[2019-03-14] MEDS: INSULIN ASPART (NovoLOG) 100 UNIT/ML VIAL SQ SCH ×2 (07:21→12:15)
[2019-03-14] MEDS ORDERED: GLIMEPIRIDE 1 MG TAB PO SCH (07:30)
[2019-03-14 07:47] VITALS: BP 157/78; PULSE 87; RESP 19; TEMP 97.3
[2019-03-14] MEDS: FAMOTIDINE 20 MG/2 ML VIAL IV SCH (08:57)
[2019-03-14] MEDS: amLODIPine 5 MG TAB PO SCH (08:57)
[2019-03-14] MEDS: metFORMIN 500 MG TAB PO SCH (08:58)
[2019-03-14] MEDS: METOPROLOL TARTRATE 25 MG TAB PO SCH (08:58)
[2019-03-14] MEDS: SENNOSIDES 8.6 MG TAB PO SCH (08:58)
[2019-03-14] MEDS ORDERED: FUROSEMIDE 20 MG TAB PO SCH (09:00)
[2019-03-14] MEDS ORDERED: ATORVASTATIN 40 MG TAB PO SCH (09:00)
[2019-03-14] MEDS ORDERED: ISOSORBIDE MONONITRATE ER 60 MG TAB.ER.24H PO SCH (09:00)
[2019-03-14] MEDS ORDERED: VIT A,C & E-LUTEIN-MINERALS 1 EACH TAB PO SCH (09:00)
[2019-03-14] MEDS ORDERED: CHOLECALCIFEROL 1,000 UNIT TAB PO SCH (09:00)
[2019-03-14] MEDS ORDERED: CLOPIDOGREL 75 MG TAB PO SCH (09:00)
[2019-03-14 11:36] LABS: Glucose,Whole Blood 185 mg/dL (75-99)
--- NOTE | 2019-03-14 12:10 | P.DS ---
Providers Date of admission: 03/13/19 14:02 Expected date of discharge: 03/14/19 Attending physician: Marshall Alcantara Primary care physician: Anthony Cameron Hospital Course: Discharge diagnosis - Angioedema - Hypertension - History of CAD - History of CVA -Diabetes - Hypertension - Hyperlipidemia - History of CAD with stents Hospital course This very pleasant 83-year-old female who comes into the ER for above-mentioned complaint. The patient says that she notices that her left side of the face is getting swollen up. Also she has swelling on the upper lip on the left side. She said that she had this similar issue while ago and she was put on prednisone. She said that her doctors trying to figure out what is causing her and trying to eliminate medications one by one. She is currently off of losartan. She said that she is noticing that whenever she takes this Crystal light however which flavors the water, she is having these reactions. She does not complain of any tongue swelling, she does not complain of any throat scratc ruma or difficulty swallowing, she does not complain of any blurry vision, no lightheadedness no dizziness, no chest pain racing heart, no cough no shortness of breath, no abdominal pain, nausea and vomiting, or diarrhea constipation, no tingling numbness of any of the extremities, no itch no rash. Next ER course pulse 66 respiration 66 blood pressure 126/69 satting 98% on room air. She was given dexamethasone, Benadryl and Pepcid in the ER which helped improve the symptoms. The patient says that her symptoms are improving but are not completely gone away. She was is admitted for observation for further admission and management. On 03/14/2019 The patient's swelling and rash has improved significantly. Her swelling in the leg has completely gone. She is just has some mild swelling in her left side of the face which is improved significantly when compared to yesterday. The patient has not does not complain of any tingling or anything, does not complain of any tongue swelling, no irritation. She says that she is ready to go home On exam, alert and oriented x3. HEENT: Conjunctivae normal. eyes normal. No swelling in her left upper lip has completely resolved, she is having mild swelling of her left side of the face. Looks improved when compared to yesterday NECK: No JVD. No thyroid enlargement. No LNs CARDIOVASCULAR: S1, S2 positive RESPIRATION: Breath sounds diminished in the bases. No rhonchi or crackles. No bronchial breathing. ABDOMEN: Soft, nontender . No guarding. no masses palpable. No ascites, No hepatosplenomegaly.Bowel sounds heard. LEGS: No edema. no swelling NERVOUS SYSTEM: Cranial N 2-12 grossly normal. Moves all 4 limbs. No focal deficits. No sensory deficit. No signs of cerebellar dysfucntion. Skin: no ulcer no rash Joints: No active swelling. No inflammation. Lymphatic system. No LN neck axilla or groin. We'll stop the patient's IV dexamethasone and started on Medrol Dosepak while here. Will monitor her and if she is doing better she will be discharged later on in the afternoon. After discharge she was advised to continue taking the Medrol Dosepak, Pepcid. And Benadryl when necessary She is requested to keep up with appointment with Dr. Cameron that she hasn't Sue that is on 03/19/2019 She will probably need to see an chart computer that she's having repeated ALLERGIC reactions. Need to rule out the offending agent. Is probably the valsartan or the Crystal light powder that the patient was using. She was told to hold both of them. The patient and the patient's sons showed understand ing Patient Condition at Discharge: Good Plan - Discharge Summary Discharge Rx Participant: No New Discharge Prescriptions: New methylPREDNISolone Dose Pack [Medrol Dose Pack] 4 mg PO DIRECTED #21 package Famotidine [Pepcid] 20 mg PO BID #14 tablet Promethazine HCl 12.5 mg PO Q4HR PRN #30 tablet PRN Reason: Allergy Symptoms Continue Aspirin 81 mg PO HS Clopidogrel [Plavix] 75 mg PO DAILY Vits A,C,E/Lutein/Minerals [Ocuvite with Lutein Tablet] 2 tab PO DAILY Cholecalciferol [Vitamin D3 (25 Mcg = 1000 Iu)] 1,000 unit PO DAILY Levothyroxine Sodium [Synthroid] 88 mcg PO DAILY ALPRAZolam [Xanax] 0.25 mg PO DAILY PRN #30 PRN Reason: Anxiety metFORMIN HCL [Glucophage] 500 mg PO BID Glimepiride [Amaryl] 1 mg PO AC-BRKFST Acetaminophen with Codeine [Tylenol w/codeine #3] 1 tab PO Q6H PRN PRN Reason: Pain amLODIPine [Norvasc] 5 mg PO BID #60 tab Nitroglycerin Sl Tabs [Nitrostat] 0.4 mg SUBLINGUAL Q5M PRN #25 tab PRN Reason: Chest Pain Atorvastatin Calcium [Lipitor] 40 mg PO DAILY Furosemide [Lasix] 20 mg PO DAILY Sennosides [Senokot] 8.6 mg PO BID Isosorbide Mononitrate ER [Imdur] 60 mg PO DAILY #30 tab.er.24h Metoprolol Tartrate [Lopressor] 25 mg PO BID #60 tab Discharge Medication List Aspirin 81 mg PO HS 01/21/14 [History] Clopidogrel [Plavix] 75 mg PO DAILY 01/21/14 [History] Cholecalciferol [Vitamin D3 (25 Mcg = 1000 Iu)] 1,000 unit PO DAILY 05/03/16 [History] Vits A,C,E/Lutein/Minerals [Ocuvite with Lutein Tablet] 2 tab PO DAILY 05/03/16 [History] Levothyroxine Sodium [Synthroid] 88 mcg PO DAILY 05/31/17 [History] ALPRAZolam [Xanax] 0.25 mg PO DAILY PRN #30 06/05/17 [Rx] Glimepiride [Amaryl] 1 mg PO AC-BRKFST 04/28/18 [History] metFORMIN HCL [Glucophage] 500 mg PO BID 04/28/18 [History] Acetaminophen with Codeine [Tylenol w/codeine #3] 1 tab PO Q6H PRN 09/25/18 [History] Nitroglycerin Sl Tabs [Nitrostat] 0.4 mg SUBLINGUAL Q5M PRN #25 tab 10/21/18 [Rx] amLODIPine [Norvasc] 5 mg PO BID #60 tab 10/21/18 [Rx] Atorvastatin Calcium [Lipitor] 40 mg PO DAILY 01/08/19 [History] Furosemide [Lasix] 20 mg PO DAILY 01/08/19 [History] Sennosides [Senokot] 8.6 mg PO BID 01/08/19 [History] Isosorbide Mononitrate ER [Imdur] 60 mg PO DAILY #30 tab.er.24h 01/09/19 [Rx] Metoprolol Tartrate [Lopressor] 25 mg PO BID #60 tab 01/09/19 [Rx] Famotidine [Pepcid] 20 mg PO BID #14 tablet 03/14/19 [Rx] Promethazine HCl 12.5 mg PO Q4HR PRN #30 tablet 03/14/19 [Rx] methylPREDNISolone Dose Pack [Medrol Dose Pack] 4 mg PO DIRECTED #21 package 03/14/19 [Rx] Follow up Appointment(s)/Referral(s): Anthony Cameron MD [Primary Care Provider] - 1-2 days
[2019-03-14] MEDS ORDERED: methylPREDNISolone 4 MG TAB TAPER PO SCH (12:30)
== END 2019-03-14 13:20 | disposition home or self-care (01) ==
LOC: EC 12:10 → 1SOBS 14:02
PROVIDERS: ADMIT Hospitalist; ATTEND Hospitalist
DX: T78.3XXA Angioneurotic edema, initial encounter (principal); R21 Rash and other nonspecific skin eruption; I10 Essential (primary) hypertension; M79.89 Other specified soft tissue disorders; I25.10 Atherosclerotic heart disease of native coronary artery without angina pectoris; Z86.73 Personal history of transient ischemic attack (TIA), and cerebral infarction without residual deficits; E11.9 Type 2 diabetes mellitus without complications; E78.5 Hyperlipidemia, unspecified; K21.9 Gastro-esophageal reflux disease without esophagitis; E89.0 Postprocedural hypothyroidism; H91.90 Unspecified hearing loss, unspecified ear; I25.2 Old myocardial infarction; M19.042 Primary osteoarthritis, left hand; M19.041 Primary osteoarthritis, right hand; M17.0 Bilateral primary osteoarthritis of knee; M47.9 Spondylosis, unspecified; H54.8 Legal blindness, as defined in USA; H35.30 Unspecified macular degeneration; G43.909 Migraine, unspecified, not intractable, without status migrainosus; K59.00 Constipation, unspecified; F41.9 Anxiety disorder, unspecified; Z95.5 Presence of coronary angioplasty implant and graft; Z79.82 Long term (current) use of aspirin; Z79.02 Long term (current) use of antithrombotics/antiplatelets; Z79.890 Hormone replacement therapy; Z79.84 Long term (current) use of oral hypoglycemic drugs; Z79.899 Other long term (current) drug therapy; Z79.891 Long term (current) use of opiate analgesic; Z91.048 Other nonmedicinal substance allergy status; Z82.49 Family history of ischemic heart disease and other diseases of the circulatory system
CPT/HCPCS: 96376 ×2; 96374; 96375; 99285; G0378 ×2; J2060; J1100 ×3; J2930

== ENCOUNTER → 2019-07-03 | Outpatient (CLI) | payer MEDICARE, BC ==
--- NOTE | 2019-07-04 10:42 | ECHOF ---
Referral Reason:I25.10 CAD MEASUREMENTS -------- HEIGHT: 149.9 cm WEIGHT: 71.2 kg BP: 151/68 RVIDd: 3.1 cm (< 3.3) IVSd: 1.1 cm (0.6 - 1.1) LVIDd: 4.3 cm (3.9 - 5.3) LVPWd: 1.1 cm (0.6 - 1.1) IVSs: 1.6 cm LVIDs: 3.0 cm LVPWs: 1.7 cm LA Diam: 3.5 cm (2.7 - 3.8) LAESV Index (A-L): 27.08 ml/m Ao Diam: 3.1 cm (2.0 - 3.7) AV Cusp: 2.0 cm (1.5 - 2.6) MV EXCURSION: 10.087 mm (> 18.000) MV EF SLOPE: 31 mm/s (70 - 150) EPSS: 0.4 cm MV E Adrian: 0.88 m/s MV DecT: 212 ms MV A Adrian: 1.00 m/s MV E/A Ratio: 0.88 RAP: 5.00 mmHg RVSP: 31.53 mmHg TAPSE: 21.02 mm FINDINGS -------- Sinus rhythm. This was a technically adequate study. The left ventricular size is normal. There is borderline concentric left ventricular hypertrophy. Overall left ventricular systolic function is normal with, an EF between 60 - 65 %. The right ventricle is normal in size. Normal LA size by volume 22+/-6 ml/m2. The right atrium is normal in size. Interatrial and interventricular septum intact. There is mild aortic valve sclerosis. Mild mitral annular calcification present. Foyl-[id number] mitral regurgitation is present. Mild tricuspid regurgitation present. There is mild pulmonary hypertension. The right ventricular systolic pressure, as measured by Doppler, is 31.53mmHg. Trace/mild (physiologic) pulmonic regurgitation. The aortic root size is normal. Normal inferior vena cava with normal inspiratory collapse consistent with estimated right atrial pre ssure of 5 mmHg. There is no pericardial effusion. CONCLUSIONS -------- 1. Sinus rhythm. 2. This was a technically adequate study. 3. The left ventricular size is normal. 4. There is borderline concentric left ventricular hypertrophy. 5. Overall left ventricular systolic function is normal with, an EF between 60 - 65 %. 6. The right ventricle is normal in size. 7. Normal LA size by volume 22+/-6 ml/m2. 8. The right atrium is normal in size. 9. Interatrial and interventricular septum intact. 10. There is mild aortic valve sclerosis. 11. Mild mitral annular calcification present. 12. Dfis-ek-cugxklxl mitral regurgitation is present. 13. Mild tricuspid regurgitation present. 14. There is mild pulmonary hypertension. 15. The right ventricular systolic pressure, as measured by Doppler, is 31.53mmHg. 16. Trace/mild (physiologic) pulmonic regurgitation. 17. The aortic root size is normal. 18. Normal inferior vena cava with normal inspiratory collapse consistent with estimated right atrial pressure of 5 mmHg. 19. There is no pericardial effusion. CONTINUOUS PROCESS COFFEE ROASTER: Berenice Sampson RDCS
== END | disposition home or self-care (01) ==
LOC: RADECHMAIN 14:51
PROVIDERS: ATTEND Family Medicine
DX: I08.3 Combined rheumatic disorders of mitral, aortic and tricuspid valves (principal); I27.20 Pulmonary hypertension, unspecified; I25.10 Atherosclerotic heart disease of native coronary artery without angina pectoris
CPT/HCPCS: 93306

== ENCOUNTER → 2019-11-29 | Outpatient (CLI) | payer MEDICARE, BC ==
[2019-11-29 12:00] LABS: Basophils % (A) 0 %; Eosinophils # (A) 0.5 k/uL (0-0.7); Eosinophils % (A) 5 %; HCT 37.8 % (34.0-46.0); HGB 12.7 gm/dL (11.4-16.0); Lymphocytes # (A) 2.2 k/uL (1.0-4.8); Lymphocytes % (A) 23 %; MCH 29.5 pg (25.0-35.0); MCHC 33.7 g/dL (31.0-37.0); MCV 87.6 fL (80.0-100.0); Mean Platelet Volume 7.8; Monocytes # (A) 0.6 k/uL (0-1.0); Monocytes % (A) 7 %; Neutrophils # (A) 5.6 k/uL (1.3-7.7); Neutrophils % (A) 61 %; Platelet Count 312 k/uL (150-450); RBC 4.32 m/uL (3.80-5.40); WBC 9.2 k/uL (3.8-10.6)
[2019-11-29 16:02] LABS: African American GFR (CKD) 67.1 (60.0-200.0); Albumin 4.5 g/dL (3.80-4.90); Albumin/Globulin Ratio 2.05 (1.60-3.17); Anion Gap 11.9 mmol/L (4.00-12.00); BUN/Creat Ratio 21.11 Ratio (12.00-20.00); Calcium 9.3 mg/dL (8.7-10.3); Carbon Dioxide 30.1 mmol/L (21.6-31.8); Chol/HDL Ratio 2.65; Globulin 2.2 g/dL (1.6-3.3); Non-African American GFR(CKD) 57.9 (60.0-200.0); Potassium 4.9 mmol/L (3.5-5.5); Total Bilirubin 0.5 mg/dL (0.2-1.2); Total Protein 6.7 g/dL (6.2-8.2)
[2019-11-29 21:15] LABS: Hemoglobin A1C 7.7 % (4.0-6.0)
== END | disposition home or self-care (01) ==
LOC: LABWHC1 11:14
PROVIDERS: ATTEND Family Medicine
DX: E11.40 Type 2 diabetes mellitus with diabetic neuropathy, unspecified (principal)
CPT/HCPCS: 36415; 80053; 80061; 83036; 85025

== ENCOUNTER → 2020-04-14 | Outpatient (CLI) | payer MEDICARE, BC ==
--- NOTE | 2020-04-14 11:11 | XR ---
EXAMINATION TYPE: XR abdomen acute w cxr DATE OF EXAM: 04/14/2020 CLINICAL HISTORY: Chest and abdominal pain. Constipation. TECHNIQUE: Single frontal view of chest is obtained. Supine and upright views of the abdomen are acq uired. COMPARISON: Prior chest x-ray January 08, 2019. Prior CTA chest October 18, 2018. FINDINGS: There are chronic parenchymal changes with bibasilar scarring and/or atelectasis. No pleura l effusion or pneumothorax noted bilaterally. Cardiac silhouette size stable and upper limits of norm al. Osseous structures are demineralized. Gas is noted in nondistended stomach and scattered small bowel loops. Gas is seen in nondistended col on. Scattered bilateral pelvic phleboliths. Levoconvex scoliosis centered at L3 level. Moderate axial joint space loss both hips. Multilevel spurring of the thoracolumbar spine. Vascular calcification i n the pelvis. No pneumoperitoneum. IMPRESSION: 1. Chronic changes without acute pulmonary process. 2. Overall nonobstructive bowel gas pattern. No significant colonic fecal stasis.
== END | disposition home or self-care (01) ==
LOC: RADXRMAIN 10:14
PROVIDERS: ATTEND Family Medicine
DX: K59.00 Constipation, unspecified (principal)
CPT/HCPCS: 74022

== ENCOUNTER 2020-05-25 10:28 | Inpatient (IN) | payer MEDICARE, BC ==
[2020-05-25] MEDS ORDERED: SODIUM CHLORIDE 0.9% 500 ML 500 ML IV STA (12:54)
--- NOTE | 2020-05-25 13:20 | ED ---
General Adult HPI - General Chief complaint: Neuro Symptoms/Deficit Stated complaint: rt arm numbness Time Seen by Provider: 05/25/20 12:54 Source: patient, RN notes reviewed, old records reviewed Mode of arrival: ambulatory Limitations: no limitations - History of Present Illness Initial comments: 85 yo female presented for evaluation of right arm numbness and weakness. 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 She is on both aspirin and Plavix. Symptoms began on Monday. She did not seek medical attention at that time. Her physical therapist today noted the increased weakness and called her primary care physician who recommended she present to the emergency department for evaluation. She denies headache. She states she does have chronic right lower extremity weakness which is baseline and unchanged. No chest pain. No abdominal pain. - Related Data Home Medications Medication Instructions Recorded Confirmed Aspirin 81 mg PO HS 01/21/14 03/13/19 Clopidogrel [Plavix] 75 mg PO DAILY 01/21/14 03/13/19 Cholecalciferol [Vitamin D3 (25 1,000 unit PO DAILY 05/03/16 03/13/19 Mcg = 1000 Iu)] Vits A,C,E/Lutein/Minerals 2 tab PO DAILY 05/03/16 03/13/19 [Ocuvite with Lutein Tablet] Levothyroxine Sodium [Synthroid] 88 mcg PO DAILY 05/31/17 03/13/19 Glimepiride [Amaryl] 1 mg PO [id number]-[id number] 04/28/18 03/13/19 metFORMIN HCL [Glucophage] 500 mg PO BID 04/28/18 03/13/19 Acetaminophen with Codeine 1 tab PO Q6H PRN 09/25/18 03/13/19 [Tylenol w/codeine #3] Atorvastatin Calcium [Lipitor] 40 mg PO DAILY 01/08/19 03/13/19 Furosemide [Lasix] 20 mg PO DAILY 01/08/19 03/13/19 Sennosides [Senokot] 8.6 mg PO BID 01/08/19 03/13/19 Previous Rx's Medication Instructions Recorded ALPRAZolam [Xanax] 0.25 mg PO DAILY PRN #30 06/05/17 Nitroglycerin Sl Tabs [Nitrostat] 0.4 mg SUBLINGUAL Q5M PRN #25 tab 10/21/18 amLODIPine [Norvasc] 5 mg PO BID #60 tab 10/21/18 Isosorbide Mononitrate ER [Imdur] 60 mg PO DAILY #30 tab.er.24h 01/09/19 Metoprolol Tartrate [Lopressor] 25 mg PO BID #60 tab 01/09/19 Famotidine [Pepcid] 20 mg PO BID #14 tablet 03/14/19 Promethazine HCl 12.5 mg PO Q4HR PRN #30 tablet 03/14/19 methylPREDNISolone Dose Pack 4 mg PO DIRECTED #21 package 03/14/19 [Medrol Dose Pack] Allergies Allergy/AdvReac Type Severity Reaction Status Date / Time PAPER TAPE Allergy Unknown Rash/Hives Uncoded 05/25/20 10:55 Review of Systems ROS Statement: Those systems with pertinent positive or pertinent negative responses have been documented in the HPI. ROS Other: All systems not noted in ROS Statement are negative. 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 Last Myocardial Infarction Date:: 09/2018 History of Any Multi-Drug Resistant Organisms: None Reported Past Surgical History: Back Surgery, Breast Surgery, Heart Catheterization With Stent, Hysterectomy, Orthopedic Surgery, Tubal Ligation Additional Past Surgical History / Comment(s): PCI with a total of 7 stents, low back surgery, L breast benign bx, R rotator cuff repair, R eye cataract removed, multiple bilateral laser eye surgeries, bilateral eye stents-R one fell out, thyroidectomy d/t nodules, temporal artery bx, cervical and lumbar injections. Past Anesthesia/Blood Transfusion Reactions: Previous Problems w/ Anesthesia Additional Past Anesthesia/Blood Transfusion Reaction / Comment(s): hard to wake up Date of Last Stent Placement:: 10/19/18 Past Psychological History: Anxiety Smoking Status: Never smoker Past Alcohol Use History: None Reported Past Drug Use History: None Reported - Past Family History Mother Family Medical History: Myocardial Infarction (AK) Additional Family Medical History / Comment(s): MOTHER OF A AK AT THE AGE OF 57YRS. Brother(s) Family Medical History: Myocardial Infarction (AK) Additional Family Medical History / Comment(s): BROTHER OF A AK AT THE AGE OF 60YRS. Father Family Medical History: No Reported History Additional Family Medical History / Comment(s): FATHER LIVED TO BE 90YRS OLD. General Exam Limitations: no limitations General appearance: alert, in no apparent distress Head exam: Present: atraumatic, normocephalic Eye exam: Present: PERRL, other (pt legally blind in both eyes) ENT exam: Present: normal exam Neck exam: Present: normal inspection. Absent: tenderness, meningismus Respiratory exam: Present: normal lung sounds bilaterally. Absent: respiratory distress, wheezes Cardiovascular Exam: Present: regular rate, normal rhythm GI/Abdominal exam: Present: soft. Absent: distended, tenderness Extremities exam: Present: pedal edema Neurological exam: Present: alert, oriented X3, other (Right lower extremity weakness which is baseline according to the patient. Right upper extremity drift and numbness to the hand. There is decreased candle pourer strength, NIH of 4) Psychiatric exam: Present: normal affect, normal mood Skin exam: Present: warm, dry, intact. Absent: cyanosis, diaphoretic Course Vital Signs 05/25/20 05/25/20 05/25/20 10:51 13:39 14:00 Temperature 97.7 F Pulse Rate 72 67 Respiratory 18 18 16 Rate Blood Pressure 153/71 165/67 165/68 O2 Sat by Pulse 98 87 L 96 Oximetry 05/25/20 14:30 Temperature Pulse Rate Respiratory 16 Rate Blood Pressure 151/67 O2 Sat by Pulse 99 Oximetry EKG Findings - EKG Comments: EKG Findings:: EKG: Normal sinus rhythm, right bundle-branch block, similar appearing EKG compared to prior in February 2019. No ST segment elevation, rate of 63, LA interval 186, QRS duration 122, QTC 444 Medical Decision Making - Medical Decision Making 85-year-old female presenting with right upper extremity weakness which is new, she has decreased candle pourer strength, decreased sensation. She is well outside of TPA window. Symptoms have been present for greater than [address] shows remote ischemic changes, no acute CVA, no intracranial hemorrhage. Patient has a normal CBC, normal CMP. I did discuss case with Dr. Alcantara who will admit this patient for further testing, neurology consultation. - Lab Data Result diagrams: 05/25/20 13:03 05/25/20 13:03 Lab Results 05/25/20 05/25/20 05/25/20 Range/Units 13:03 13:03 13:03 WBC 6.4 (3.8-10.6) k/uL RBC 4.60 (3.80-5.40) m/uL Hgb 13.4 (11.4-16.0) gm/dL Hct 40.6 (34.0-46.0) % MCV 88.2 (80.0-100.0) fL MCH 29.0 (25.0-35.0) pg MCHC 32.9 (31.0-37.0) g/dL RDW 12.9 (11.5-15.5) % Plt Count 350 (150-450) k/uL Neutrophils % 54 % Lymphocytes % 34 % Monocytes % 6 % Eosinophils % 3 % Basophils % 1 % Neutrophils # 3.4 (1.3-7.7) k/uL Lymphocytes # 2.2 (1.0-4.8) k/uL Monocytes # 0.4 (0-1.0) k/uL Eosinophils # 0.2 (0-0.7) k/uL Basophils # 0.0 (0-0.2) k/uL PT 9.6 (9.0-12.0) sec INR 0.9 (<1.2) APTT 23.4 (22.0-30.0) sec Sodium 135 L (137-145) mmol/L Potassium 4.4 (3.5-5.1) mmol/L Chloride 103 (98-107) mmol/L Carbon Dioxide 22 (22-30) mmol/L Anion Gap 10 mmol/L BUN 15 (7-17) mg/dL Creatinine 0.73 (0.52-1.04) mg/dL Est GFR (CKD-EPI)AfAm 86 (>60 ml/min/1.73 sqM) Est GFR (CKD-EPI)NonAf 75 (>60 ml/min/1.73 sqM) Glucose 155 H (74-99) mg/dL Calcium 9.8 (8.4-10.2) mg/dL Total Bilirubin 0.6 (0.2-1.3) mg/dL AST 22 (14-36) U/L ALT 14 (4-34) U/L Alkaline Phosphatase 132 H (38-126) U/L Troponin I (0.000-0.034) ng/mL Total Protein 7.6 (6.3-8.2) g/dL Albumin 4.7 (3.5-5.0) g/dL 05/25/20 Range/Units 13:03 WBC (3.8-10.6) k/uL RBC (3.80-5.40) m/uL Hgb (11.4-16.0) gm/dL Hct (34.0-46.0) % MCV (80.0-100.0) fL MCH (25.0-35.0) pg MCHC (31.0-37.0) g/dL RDW (11.5-15.5) % Plt Count (150-450) k/uL Neutrophils % % Lymphocytes % % Monocytes % % Eosinophils % % Basophils % % Neutrophils # (1.3-7.7) k/uL Lymphocytes # (1.0-4.8) k/uL Monocytes # (0-1.0) k/uL Eosinophils # (0-0.7) k/uL Basophils # (0-0.2) k/uL PT (9.0-12.0) sec INR (<1.2) APTT (22.0-30.0) sec Sodium (137-145) mmol/L Potassium (3.5-5.1) mmol/L Chloride (98-107) mmol/L Carbon Dioxide (22-30) mmol/L Anion Gap mmol/L BUN (7-17) mg/dL Creatinine (0.52-1.04) mg/dL Est GFR (CKD-EPI)AfAm (>60 ml/min/1.73 sqM) Est GFR (CKD-EPI)NonAf (>60 ml/min/1.73 sqM) Glucose (74-99) mg/dL Calcium (8.4-10.2) mg/dL Total Bilirubin (0.2-1.3) mg/dL AST (14-36) U/L ALT (4-34) U/L Alkaline Phosphatase (38-126) U/L Troponin I <0.012 (0.000-0.034) ng/mL Total Protein (6.3-8.2) g/dL Albumin (3.5-5.0) g/dL Critical Care Time Critical Care Time: Yes Total Critical Care Time: 35 Disposition Clinical Impression: Cerebrovascular accident (CVA) Disposition: ADMITTED IP TO THIS [facility] Condition: Stable Is patient prescribed a controlled substance at d/c from ED?: No Referrals: Anthony Cameron MD [Primary Care Provider] - 1-2 days Decision to Admit Reason: Admit from EC Decision Date: 05/25/20 Decision Time: 15:01
[2020-05-25 13:45] LABS: Basophils % (A) 1 %; Eosinophils # (A) 0.2 k/uL (0-0.7); Eosinophils % (A) 3 %; HCT 40.6 % (34.0-46.0); HGB 13.4 gm/dL (11.4-16.0); Lymphocytes # (A) 2.2 k/uL (1.0-4.8); Lymphocytes % (A) 34 %; MCHC 32.9 g/dL (31.0-37.0); MCV 88.2 fL (80.0-100.0); Mean Platelet Volume 7.1; Monocytes # (A) 0.4 k/uL (0-1.0); Monocytes % (A) 6 %; Neutrophils # (A) 3.4 k/uL (1.3-7.7); Neutrophils % (A) 54 %; Platelet Count 350 k/uL (150-450); RDW 12.9 % (11.5-15.5); WBC 6.4 k/uL (3.8-10.6)
[2020-05-25 13:53] LABS: Albumin 4.7 g/dL (3.5-5.0); Calcium 9.8 mg/dL (8.4-10.2); INR 0.9 (<1.2); Partial Thromboplastin Time 23.4 sec (22.0-30.0); Potassium 4.4 mmol/L (3.5-5.1); Prothrombin Time 9.6 sec (9.0-12.0); Total Bilirubin 0.6 mg/dL (0.2-1.3); Total Protein 7.6 g/dL (6.3-8.2)
--- NOTE | 2020-05-25 14:35 | CT ---
EXAMINATION TYPE: CT brain wo con DATE OF EXAM: 05/25/2020 COMPARISON: 11/08/2018 HISTORY: Right arm numbness. CT DLP: 1060.4 mGycm Automated exposure control for dose reduction was used. FINDINGS: There is no acute intracranial hemorrhage or midline shift identified. There is diffuse ventricular a nd sulcal prominence consistent with diffuse age-related cerebral atrophy. There is low-attenuation i n the periventricular white matter consistent with chronic small vessel ischemic change. The calvariu m is intact. No suspicious opacification of mastoid air cells is seen. There is stable 1.1 cm small mucous retention cyst or polyp in the anterior inferior left maxillary s inus. There is new minimal mucosal thickening inferiorly in the right maxillary sinus. There is stabl e mild to minimal mucosal thickening involving anterior ethmoid sinuses bilaterally remainder paranas al sinuses are clear without suspicious opacification or air-fluid levels. Ostiomeatal complex is pat ent bilaterally on coronal images. The globes are intact bilaterally. Right lens is thinned similar to prior. Intraconal fat is preserve d. Vascular calcification distal internal carotid arteries is redemonstrated bilaterally. Hyperostosi s of the calvarium. Partially empty sella turcica. Craniocervical junction maintained. IMPRESSION: DEGENERATIVE AND NONSPECIFIC WHITE MATTER CHANGES MOST TYPICAL OF REMOTE MICROVASCULAR ISCHEMIA. IF THERE IS CONCERN FOR ACUTE ISCHEMIA CORRELATE WITH MRI CLINICALLY WARRANTED.
[2020-05-25] MEDS ORDERED: ASPIRIN 325 MG TAB PO STA (14:53)
--- NOTE | 2020-05-25 15:34 | US ---
EXAMINATION TYPE: US carotid duplex BILAT DATE OF EXAM: 05/25/2020 COMPARISON: CLINICAL HISTORY: Stenosis. Hx tia's. No HTN. Right arm numbness. EXAM MEASUREMENTS: RIGHT: Peak Systolic Velocity (PSV) cm/sec ----- Right CCA: 79.3 ----- Right ICA: 174.0 ----- Right ECA: 324.0 ICA/CCA ratio: 2.2 RIGHT: End Diastole cm/sec ----- Right CCA: 7.2 ----- Right ICA: 18.1 ----- Right ECA: 0.0 LEFT: Peak Systolic Velocity (PSV) cm/sec ----- Left CCA: 76.3 ----- Left ICA: 103.0 ----- Left ECA: 315.0 ICA/CCA ratio: 1.4 LEFT: End Diastole cm/sec ----- Left CCA: 6.3 ----- Left ICA: 18.9 ----- Left ECA: 0.0 VERTEBRALS (direction of flow): Right Vertebral: Antegrade Left Vertebral: Antegrade Rhythm: Normal Plaque visualized in bilateral bulbs extending into proximal ICA. Bilateral ECA elevated velocities. Wall thickening. Right CCA significant stenosis. IMPRESSION: 1. Atheromatous plaquing contributing to moderate narrowing of the right internal carotid artery betw een 50 and 69%. 2. Note is made of severe stenosis greater than 70% within the bilateral external carotid arteries Criteria for Assigning % of Stenosis / Diameter reduction (Estimation based on the indirect measurements of the internal carotid artery velocities (ICA PSV). 1. Normal (no stenosis)=ICA PSV < 125 cm/s: ratio < 2.0: ICA EDV<40 cm/s. 2. Less than 50% stenosis=ICA PSV < 125 cm/s: ratio < 2.0: ICA EDV<40 cm/s. 3. 50 to 69% stenosis=ICA PSV of 125 to 230 cm/s: ration 2.0 ? 4.0: ICA EDV 40-100 cm/s. 4. Greater than 70% stenosis to near occlusion= ICA PSV > 230 cm/s: ratio > 4.0: ICA EDV > 100 cm/s. 5. Near occlusion= ICA PSV velocities may be low or undetectable: variable ratio and ICA EDV. 6. Total occlusion=unable to detect flow.
[2020-05-25] MEDS: SODIUM CHLORIDE 0.9% 1,000 ML IV SCH (15:53)
[2020-05-25 21:00] LABS: Glucose,Whole Blood 125 mg/dL (75-99)
--- NOTE | 2020-05-25 21:18 | XR ---
EXAMINATION TYPE: XR chest 1V portable DATE OF EXAM: 05/25/2020 COMPARISON: 04/14/2020 HISTORY: Chest pain TECHNIQUE: FINDINGS: Heart and mediastinum are normal. Lungs are clear. Costophrenic angles are clear. There are no hilar masses. There are chest leads. Bony thorax is intact. IMPRESSION: No active cardiopulmonary disease. There is clearing of the minimal pleural reaction righ t lung base compared to old exam.
[2020-05-25] MEDS ORDERED: Acetaminophen-Codeine 300-30mg TAB PO PRN (21:30)
[2020-05-25] MEDS: metFORMIN 500 MG TAB PO SCH (22:00)
[2020-05-25] MEDS: HEPARIN SODIUM,PORCINE 5,000 UNIT/ML 1 ML VIAL SQ SCH (22:00)
[2020-05-25] MEDS: GABAPENTIN 100 MG CAP PO SCH (22:00)
[2020-05-25] MEDS: ISOSORBIDE MONONITRATE ER 60 MG TAB.ER.24H PO SCH (22:01)
[2020-05-25] MEDS: METOPROLOL TARTRATE 25 MG TAB PO SCH (22:01)
[2020-05-25] MEDS: FAMOTIDINE 20 MG TAB PO SCH (22:01)
[2020-05-25] MEDS: amLODIPine 5 MG TAB PO SCH (22:04)
[2020-05-25] MEDS: ALPRAZolam 0.25 MG TAB PO PRN (22:05)
[2020-05-26 01:04] LABS: Appearance,Urine Clear (Clear); Bilirubin,Urine Negative (Negative); Blood,Urine Negative (Negative); Color,Urine Colorless; Glucose,Urine (UA) Negative (Negative); Ketones,Urine Negative (Negative); Leukocyte Esterase,Urine Negative (Negative); Nitrite,Urine Negative (Negative); Protein,Urine Negative (Negative); Specific Gravity,Urine 1.006 (1.001-1.035); Urobilinogen,Urine <2.0 mg/dL (<2.0)
--- NOTE | 2020-05-26 01:10 | HP ---
HISTORY AND PHYSICAL CHIEF COMPLAINTS: Weakness of the right upper limb. HISTORY OF PRESENT ILLNESS: This 85-year-old woman with a past medical history of multiple medical problems including history of CAD, history of CVA, TIA involving the right side, history of diabetes type 2, history of GERD, hearing defect, hyperlipidemia hypertension, history of myocardial infarction being followed by Dr. Anthony Cameron in the outpatient setting, the patient is noted to have numbness and weakness of the right hand and since Monday. The patient did not seek any medical advice, but because of increasing difficulty, the patient came to [facility] and was admitted for further evaluation and treatment. The patient was taking aspirin and Plavix also. The evaluation showed bilateral carotid stenosis about around 69 percent on the right and severe stenosis 70% within the external carotid also. The patient admitted for further evaluation. There is no history of fever, rigors. No headache, loss of consciousness, seizures. PAST MEDICAL HISTORY: History of CVA, TIA, diabetes mellitus, GERD, hard of hearing, hyperlipidemia, hypertension, myocardial infarction, hypothyroidism, back surgery, degenerative joint disease. MEDICATIONS: Prior to admission include: 1. Glucophage. 2. Norvasc. 3. Vitamin A. 4. Metoprolol. 5. Cozaar. 6. Synthroid. 7. Imdur. 8. Amaryl. 9. Neurontin. 10.Lasix. 11.Nexium. 12.Plavix. 13.Vitamin D3. 14.Lipitor. 15.Tylenol No.3. 16.Xanax. 17.Doses are reviewed. ALLERGIES: PAPER TAPE. FAMILY HISTORY: Family history is myocardial infarction in the family. SOCIAL HISTORY: No history of smoking. No history of alcohol intake. REVIEW OF SYSTEMS: ENT: No diminished vision. No diminished hearing. CARDIOVASCULAR: No angina or palpitations. RESPIRATION as mentioned earlier. GI: As mentioned earlier. no dysuria. NERVOUS SYSTEM: No numbness or weakness. ALLERGY/IMMUNOLOGY: No asthma or hayfever. MUSCULOSKELETAL as mentioned earlier. HEMATOLOGY/ONCOLOGY: No history of anemia. ENDOCRINE: No history of diabetes or hypothyroidism. CONSTITUTIONAL: As mentioned earlier. DERMATOLOGY: Negative. RHEUMATOLOGY: Negative. PSYCHIATRY: As mentioned. PHYSICAL EXAMINATION: GENERAL: Alert and oriented x2. Pulse 75, blood pressure 140/60, respiration 18, temperature 97.8, pulse ox 98% on room air. HEENT: Conjunctivae normal. NECK: No JVD. CARDIOVASCULAR: S1, S2 muffled. RESPIRATIONS: Breath sounds diminished in the bases. Scattered rhonchi and crackles. ABDOMEN: Soft. Obese, nontender. LEGS: No edema. No swelling. NERVOUS SYSTEM: Higher functions as mentioned earlier. Minimal facial deviation. Significant weakness and as well as some contractures on the right arm present. Minimal weakness of the right upper limb also present. SKIN: No ulcers. No rashes and no bleeding. JOINTS: No active deforming arthropathy. LYMPHATICS: No lymph nodes palpable in the neck, axillae or groin. LABS: CBC within normal limits. Sodium 135, alkaline phosphatase 132 and a carotid Doppler personally reviewed. Chest x-ray reviewed. CT of the brain showed nonspecific white matter changes, remote microvascular ischemia, acute ischemia correlated with MRI. ASSESSMENT: 1. Possible acute stroke involving the right MCA causes right upper limb weakness. 2. Old right hemiparesis. 3. History of coronary artery disease. 4. Diabetes mellitus type 2. 5. Gastroesophageal reflux disease. 6. Hypertension. 7. Hyperlipidemia. 8. History of myocardial infarction. 9. History of episode of angioedema. 10.History of legal blindness and macular degeneration. 11.History of right internal carotid stenosis 50 to 60%. 12.Bilateral external carotid artery stenosis 70%. 13.History of back surgery. 14.Degenerative joint disease. 15.History of coronary artery disease/stent. 16.History of anxiety. 17.NO CODE, NO CPR, NO VENT. RECOMMENDATIONS AND DISCUSSION: In this 85 -year-old woman with multiple complex medical issues, we will monitor the patient closely, continue the current medications, management and symptomatic treatment. Continue the antiplatelet agents. DVT prophylaxis. Otherwise, resume the home medications. I would also recommend a neurology consultation. Neuro checks. Vascular surgery consultation for evaluation of the carotid stenosis. Otherwise home medication reconciliation done. The prognosis guarded because of multiple complex medical issues. Further recommendations to follow. A copy of dictation being forwarded to Dr. Anthony Cameron who is the primary physician. I would also recommend a 2D echo with Doppler if it was not done during the past 6 months. MMODL / IJN: [id number] /
[2020-05-26 06:31] LABS: Glucose,Whole Blood 135 mg/dL (75-99)
[2020-05-26] MEDS: GLIMEPIRIDE 1 MG TAB PO SCH (06:39)
[2020-05-26] MEDS: LEVOTHYROXINE 88 MCG TAB PO SCH (06:39)
[2020-05-26] MEDS: LOSARTAN 50 MG TAB PO SCH (08:51)
[2020-05-26] MEDS: metFORMIN 500 MG TAB PO SCH ×2 (08:51→20:24)
[2020-05-26] MEDS: METOPROLOL TARTRATE 25 MG TAB PO SCH ×2 (08:51→20:25)
[2020-05-26] MEDS: CHOLECALCIFEROL 1,000 UNIT TAB PO SCH (08:51)
[2020-05-26] MEDS: FAMOTIDINE 20 MG TAB PO SCH (08:52)
[2020-05-26] MEDS: PANTOPRAZOLE 40 MG TABLET PO SCH (08:52)
[2020-05-26] MEDS: ISOSORBIDE MONONITRATE ER 60 MG TAB.ER.24H PO SCH (08:52)
[2020-05-26] MEDS: amLODIPine 5 MG TAB PO SCH ×2 (08:52→20:25)
[2020-05-26] MEDS: VIT A,C & E-LUTEIN-MINERALS 1 EACH TAB PO SCH (08:52)
[2020-05-26] MEDS: HEPARIN SODIUM,PORCINE 5,000 UNIT/ML 1 ML VIAL SQ SCH ×2 (08:52→20:25)
[2020-05-26] MEDS: CLOPIDOGREL 75 MG TAB PO SCH (08:53)
[2020-05-26] MEDS ORDERED: ATORVASTATIN 40 MG TAB PO SCH ×2 (09:00→21:00)
[2020-05-26] MEDS ORDERED: ASPIRIN 325 MG TAB PO SCH ×2 (09:00→21:00)
[2020-05-26 09:23] LABS: Basophils # (A) 0.1 k/uL (0-0.2); Basophils % (A) 1 %; Eosinophils # (A) 0.3 k/uL (0-0.7); Eosinophils % (A) 4 %; HCT 38.1 % (34.0-46.0); HGB 12.4 gm/dL (11.4-16.0); Lymphocytes % (A) 26 %; MCHC 32.4 g/dL (31.0-37.0); MCV 89.3 fL (80.0-100.0); Mean Platelet Volume 7.1; Monocytes # (A) 0.4 k/uL (0-1.0); Monocytes % (A) 6 %; Neutrophils # (A) 4.9 k/uL (1.3-7.7); Neutrophils % (A) 63 %; Platelet Count 314 k/uL (150-450); RBC 4.27 m/uL (3.80-5.40); RDW 12.7 % (11.5-15.5); WBC 7.8 k/uL (3.8-10.6)
[2020-05-26 09:56] LABS: Calcium 9.5 mg/dL (8.4-10.2); Potassium 4.7 mmol/L (3.5-5.1)
--- NOTE | 2020-05-26 11:18 | P.CNNES ---
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 She did not seek medical attention. Her physical therapist noted to her increased weakness and called the primary care physician who recommended the patient that to undergo the emergency department for evaluation. Patient stated that she slept on Monday and then on Monday she woke up with the right upper extremity weakness and numbness she felt mostly in the right hand but it extends up to the elbow. She denies any slurring the speech, any word finding difficult ies. Any difficulty swallowing. She has chronic right lower extremity weakness and she uses a walker. She is currently on aspirin 81mg as well as Plavix 75mg as well as Lipitor 40 mg daily. She has not missed her medications. She gets physical therapy for her right lower extremity weakness. Workup in the hospital consisted of: On presentation the patient's initial loss vitals were blood pressure was 153/71, heart rate of 72, respiratory 18, temperature of 97.7 Fahrenheit oral and pulse ox of [address] of the head which was reported as degenerative and nonspecific white matter changes most typical of a remote microvascular ischemia. If there are concerning for acute ischemia correlate with MRI as clinically warranted. I personally reviewed the CT of the head and the I do agree there is no acute hemorrhage I felt like there is some hypoattenuation which seemed subacute over the subcortical area in the white matter bilaterally mostly left more than the right. Carotid duplex was reported as as dramatic plaquing contributing to moderate narrowing of the right internal carotid artery between 50 and 69%. Note is made of severe stenosis greater than 70% within the bilateral external carotid arteries. EKG was reported as normal sinus rhythm. ST and T-wave abnormality, consider anterior ischemia. RSR or QR pattern in V1 suggest right ventricular conduction delay. Patient had MRI of the brain on 06/01/2017 and was reported as an acute ischemia on the left thalamus. As well as small vessel microvascular disease. I personally reviewed the images and I felt was a subacute ischemia over the left thalamus and I do agree the patient does have chronic small microvascular disease. Review of Systems Review of system: The 12 point system was reviewed and apparent positive and negative per HPI. Past Medical History Past Medical History: Coronary Artery Disease (CAD), CVA/TIA, Diabetes Mellitus, Eye Disorder, GERD/Reflux, Hearing Disorder / Deafness, Hyperlipidemia, Hypertension, Myocardial Infarction ([place]), Osteoarthritis (OA), Thyroid Disorder Additional Past Medical History / Comment(s): EPISODES OF ANGIOEDEMA, NIDDM TYPE II, 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 Last Myocardial Infarction Date:: 09/2018 History of Any Multi-Drug Resistant Organisms: None Reported Past Surgical History: Back Surgery, Breast Surgery, Heart Catheterization With Stent, Hysterectomy, Orthopedic Surgery, Tubal Ligation Additional Past Surgical History / Comment(s): PCI with a total of 7 stents, low back surgery, L breast benign bx, R rotator cuff repair, R eye cataract removed, multiple bilateral laser eye surgeries, bilateral eye stents-R one fell out, thyroidectomy d/t nodules, temporal artery bx, cervical and lumbar injections. Past Anesthesia/Blood Transfusion Reactions: Previous Problems w/ Anesthesia Additional Past Anesthesia/Blood Transfusion Reaction / Comment(s): hard to wake up Date of Last Stent Placement:: 10/19/18 Past Psychological History: Anxiety Additional Psychological History / Comment(s): Pt has her son, Geoffrey residing with her. She is visually impaired, reads with a lighted magnifying screen. She signs her name occasionally. She is able to manage her own medications. Her sons take her to appts. She ambulates with a walker. Smoking Status: Never smoker Past Alcohol Use History: None Reported Past Drug Use History: None Reported - Past Family History Mother Family Medical History: Myocardial Infarction ([place]) Additional Family Medical History / Comment(s): MOTHER OF A [place] AT THE AGE OF 57YRS. Brother(s) Family Medical History: Myocardial Infarction ([place]) Additional Family Medical History / Comment(s): BROTHER OF A [place] AT THE AGE OF 60YRS. Father Family Medical History: No Reported History Additional Family Medical History / Comment(s): FATHER LIVED TO BE 90YRS OLD. Medications and Allergies Home Medications Medication Instructions Recorded Confirmed Type Aspirin 81 mg PO HS 01/21/14 05/25/20 History Clopidogrel [Plavix] 75 mg PO DAILY 01/21/14 05/25/20 History Cholecalciferol [Vitamin D3 (25 1,000 unit PO DAILY 05/03/16 05/25/20 History Mcg = 1000 Iu)] Vits A,C,E/Lutein/Minerals 2 tab PO DAILY 05/03/16 05/25/20 History [Ocuvite with Lutein Tablet] Levothyroxine Sodium [Synthroid] 88 mcg PO DAILY 05/31/17 05/25/20 History ALPRAZolam [Xanax] 0.25 mg PO DAILY PRN #30 06/05/17 05/25/20 Rx Glimepiride [Amaryl] 1 mg PO [id number] 04/28/18 05/25/20 History metFORMIN HCL [Glucophage] 500 mg PO BID 04/28/18 05/25/20 History Acetaminophen with Codeine 1 tab PO Q6H PRN 09/25/18 05/25/20 History [Tylenol w/codeine #3] amLODIPine [Norvasc] 5 mg PO BID #60 tab 10/21/18 05/25/20 Rx Furosemide [Lasix] 20 - 60 mg PO DAILY PRN 01/08/19 05/25/20 History Isosorbide Mononitrate ER [Imdur] 60 mg PO DAILY #30 tab.er.24h 01/09/19 05/25/20 Rx Famotidine [Pepcid] 20 mg PO BID #14 tablet 03/14/19 05/25/20 Rx Atorvastatin [Lipitor] 40 mg PO DAILY 05/25/20 05/25/20 History Esomeprazole Magnesium [NexIUM 20 mg PO DAILY 05/25/20 05/25/20 History 24Hr] Gabapentin [Neurontin] 100 mg PO HS 05/25/20 05/25/20 History Losartan [Cozaar] 100 mg PO DAILY 05/25/20 05/25/20 History Metoprolol Tartrate [Lopressor] 25 mg PO BID 05/25/20 05/25/20 History Allergies Allergy/AdvReac Type Severity Reaction Status Date / Time PAPER TAPE Allergy Unknown Rash/Hives Uncoded 05/25/20 10:55 Physical Examination - Vital Signs Vital Signs: Vital Signs Temp Pulse Pulse Resp BP BP BP 05/26/20 04:00 98.0 F 69 18 152/67 05/26/20 00:00 97.5 F L 74 16 155/70 05/25/20 20:00 97.8 F 75 18 145/65 05/25/20 19:58 75 18 145/65 05/25/20 18:19 97.5 F L 80 18 182/81 202/84 05/25/20 17:41 98 F 69 18 148/69 05/25/20 17:33 98 F 69 18 148/69 05/25/20 15:03 87 18 141/76 05/25/20 14:30 16 151/67 05/25/20 14:00 16 165/68 05/25/20 13:39 67 16 151/67 05/25/20 10:51 97.7 F 72 18 153/71 Pulse Ox 05/26/20 04:00 96 05/26/20 00:00 05/25/20 20:00 05/25/20 19:58 98 05/25/20 18:19 97 05/25/20 17:41 95 05/25/20 17:33 95 05/25/20 15:03 96 05/25/20 14:30 99 05/25/20 14:00 96 05/25/20 13:39 87 L 05/25/20 10:51 98 Intake and Output 05/25/20 05/26/20 05/26/20 22:59 06:59 14:59 Output Total 1300 Balance -1300 Output: Urine 1300 Other: Voiding Method Toilet Toilet Weight 70.76 kg 71.9 kg GENERAL: The patient is lying in chair and is not in acute distress. CHEST: The heart rate is regular rate rhythm. No murmurs to auscultation. LUNG: Clear to auscultation bilaterally no wheezing noted throughout. Not labored breathing. ABDOMEN/GI: Bowel sounds present in all 4 quadrants. No tenderness to palpation throughout. NEUROLOGICAL: Higher mental function: The patient is awake, alert, oriented to self, place and time. Patient is following commands. No aphasia and no neglect. Cranial nerves: The pupils are round, equal and reactive to light and accommodation. Visual tsai: Patient is legally blind out of both eye but can see over the right eyes only left lower quadrant region. Extraocular movement is intact no nystagmus is noted. Facial sensation is normal to touch throughout. The facial strength is normal throughout. She is hard of hearing. Tongue is midline and moved [id number] without any difficulty. No dysarthria is noted. Shoulder shrug is normal bilaterally. Motor: Gait is defered. The strength over the right upper extremity is 5- proximally but 4+ distally. Right lower extremity is 4 while left is 5/5. Normal tone and bulk. Sensation: Sensation is decreased to touch over the right upper and lower extremity. Reflexes (right/left): 1+ throughout. Plantars are downgoing bilaterally. Results Coagulation study: PT 9.6, INR 0.9, PTT of 23.4. Patient's sodium on presentation is 135 upon reviewing her sodium it's always been in the 130s and his episodes that was in the 120s mid 120s. UA was negative for urinary tract infection Last hemoglobin A1c was on the 03/09/2020 and it was 7.2. Last TSH was on 03/09/2020 and it was 1.08. Last lipid profile was also on 03/09/2020 and the triglyceride was 144, cholesterol is 172, LDL 71.2, HDL is 72. - Laboratory Findings CBC and BMP: 05/26/20 08:57 05/26/20 08:57 Abnormal Lab Findings: Abnormal Labs 05/25/20 05/25/20 05/26/20 13:03 20:56 06:30 Sodium 135 L Glucose 155 H POC Glucose (mg/dL) 125 H 135 H Alkaline Phosphatase 132 H Assessment and Plan Assessment: Right upper extremity weakness and numbness seems consistent with the new subacute stroke Symptomatic Left ICA stenosis (50-69%). Left thalamus stroke (2017) History of TIA ( left lower extremity weakness) Left eye blindness from a stroke in 2017 Legally blind over the right eye from macular degeneration Hard of hearing Diabetes type 2 Jeremiah artery disease status post stent Hypertension Plan: I ordered MRI the brain to rule out the any acute ischemia that is not seen on the CT of the head. Currently the patient is on aspirin 325 and Plavix 75 mg daily as well as the patient is on Lipitor 40 mg. I recommend for the Plavix to be discontinued and to start on Brilinta instead since the patient failed her dual antiplatelets (ASA and Plavix) but will first get clearance from her cardiology team. Continue aspirin 325. I will increase the Lipitor from 40 mg to 80 mg since the patient has a carotid stenosis. Dr. Lainez is consulted for the carotid stenosis. --Patient does not want any intervention on her carotids. 2-D echo is pending Lipid profile is pending. Cardiac monitoring Last hemoglobin A1c was on the 03/09/2020 and it was 7.2. No need to repeat it. Last TSH was on 03/09/2020 and it was 1.08. No need to repeat it. PT OT and speech therapy is consulted. Thank you for the consult. Luis Gardner M.D. Neuro-hospitalist Time with Patient: Greater than 30
--- NOTE | 2020-05-26 12:00 | ECHOF ---
Referral Reason:Thrombus MEASUREMENTS -------- HEIGHT: 132.1 cm WEIGHT: 64.4 kg BP: RVIDd: 2.6 cm (< 3.3) IVSd: 1.4 cm (0.6 - 1.1) LVIDd: 3.0 cm (3.9 - 5.3) LVPWd: 1.4 cm (0.6 - 1.1) IVSs: 1.6 cm LVIDs: 2.9 cm LVPWs: 1.2 cm LA Diam: 3.7 cm (2.7 - 3.8) LAESV Index (A-L): 24.37 ml/m Ao Diam: 2.5 cm (2.0 - 3.7) AV Cusp: 2.2 cm (1.5 - 2.6) MV EXCURSION: 12.842 mm (> 18.000) MV EF SLOPE: 112 mm/s (70 - 150) EPSS: 0.2 cm MV E Adrian: 0.43 m/s MV DecT: 244 ms MV A Adrian: 0.77 m/s MV E/A Ratio: 0.55 RAP: 5.00 mmHg RVSP: 25.41 mmHg FINDINGS -------- Sinus rhythm. This was a technically adequate study. The left ventricular size is normal. There is mild concentric left ventricular hypertrophy. Overa ll left ventricular systolic function is low-normal with, an EF between 50 - 55 %. The right ventricle is normal in size. The left atrium is mildly dilated. The right atrial size is normal. There is mild aortic valve sclerosis. There is no evidence of aortic regurgitation. Mild mitral annular calcification present. Mild mitral regurgitation is present. Mild tricuspid regurgitation present. Right ventricular systolic pressure is normal at < 35 mmHg. There is no pulmonic regurgitation present. The aortic root size is normal. There is a trivial pericardial effusion present. CONCLUSIONS -------- 1. The left ventricular size is normal. 2. There is mild concentric left ventricular hypertrophy. 3. Overall left ventricular systolic function is low-normal with, an EF between 50 - 55 %. 4. The right ventricle is normal in size. 5. The left atrium is mildly dilated. 6. The right atrial size is normal. 7. There is mild aortic valve sclerosis. 8. Mild mitral annular calcification present. 9. Mild mitral regurgitation is present. 10. Mild tricuspid regurgitation present. 11. There is no pulmonic regurgitation present. 12. There is a trivial pericardial effusion present. BIOLOGY ADJUNCT INSTRUCTOR: Francoise Ochoa RDCS
--- NOTE | 2020-05-26 12:29 | MR ---
EXAMINATION TYPE: MR brain wo con DATE OF EXAM: 05/26/2020 COMPARISON: CT scan 05/25/2020, MRI 06/01/2017 HISTORY: stroke, right hand weakness TECHNIQUE: T1-weighted sagittal, T2, FLAIR, and diffusion axial, and T2 coronal coronal views of the brain are submitted. FINDINGS: There is a 5 mm area of abnormal signal within the left high parietal cortex suspicious for a tiny a karuna of acute ischemia... Generalized degenerative change seen and there are numerous focal areas as w ell as confluent areas of abnormal signal throughout the white matter bilaterally. Findings are nonsp ecific but most typical remote microvascular ischemia. Report called to the patient's nurse. Craniocervical junction maintained. There is a partially empty sella turcica. Changes of chronic sinu sitis are noted. . IMPRESSION: 1. There is a 5 mm area of abnormal signal within the left high parietal cortex suspicious for a tiny area of acute ischemia.. 2. Degenerative and nonspecific white matter changes most typical of remote microvascular ischemia. 3. Changes of chronic sinusitis.
[2020-05-26 12:32] LABS: Glucose,Whole Blood 82 mg/dL (75-99)
[2020-05-26] MEDS: SODIUM CHLORIDE 0.9% 1,000 ML IV SCH (13:29)
[2020-05-26 17:10] LABS: Glucose,Whole Blood 109 mg/dL (75-99)
[2020-05-26] MEDS: GABAPENTIN 100 MG CAP PO SCH (20:25)
[2020-05-26] MEDS: ATORVASTATIN 80 MG TAB PO SCH (20:25)
[2020-05-26 20:46] LABS: Glucose,Whole Blood 159 mg/dL (75-99)
[2020-05-26] MEDS: ALPRAZolam 0.25 MG TAB PO PRN (21:18)
--- NOTE | 2020-05-26 21:20 | PN ---
PROGRESS NOTE DATE OF SERVICE: 05/26/2020 DATE OF SERVICE: This 85-year-old woman who was admitted with acute stroke involving the right MCA causing right upper limb weakness, was found to have a 5 mm area of abnormal signal in the left suspicious for acute ischemia. Neurology following the patient closely. No chest pain. No palpitations. No fever. Patient had carotid stenosis. The patient refused surgery at this time. PHYSICAL EXAMINATION: Alert and oriented x3. Pulse is 67, blood pressure 119/57, respiration 16, temperature 97.4, pulse ox 97% on room air. HEENT is conjunctivae normal. NECK is no JVD. CARDIOVASCULAR: S1, S2 muffled. RESPIRATION: Breath sounds diminished in the bases. A few scattered rhonchi and crackles. ABDOMEN: Soft, nontender. LEGS no edema. No swelling. NERVOUS SYSTEM: Higher functions as mentioned earlier. There is mild diffuse weakness especially in the right upper limb and right hand also present. LABS: WBC 7.2, hemoglobin 12.4, sodium 136. ASSESSMENT: 1. Acute stroke involving the right MCA territory causing the right upper limb and upper hand weakness. 2. Old right hemiparesis. 3. History of coronary artery disease. 4. Diabetes type 2. 5. Gastroesophageal reflux disease. 6. Hypertension. 7. Hyperlipidemia. 8. History of myocardial infarction. 9. History of episode of angioedema. 10.History of legal blindness and macular degeneration. 11.Gastroesophageal reflux disease. 12.History of right internal carotid stenosis 50 to 60%. 13.Bilateral external carotid artery stenosis 70%. 14.History of back surgery. 15.History of degenerative joint disease. 16.History of coronary artery disease/stent. 17.History of anxiety. 18.NO CODE, NO CPR, NO VENT. RECOMMENDATIONS AND DISCUSSION: I recommend to continue current medications. Antiplatelet agents. Otherwise, at this time we will continue to monitor. The prognosis is guarded. PT/OT evaluation. Closely follow with Neurology. Further recommendations to follow. MMODL / IJN: [id number] / MTDD
[2020-05-27 06:11] LABS: Basophils # (A) 0.1 k/uL (0-0.2); Basophils % (A) 1 %; Eosinophils # (A) 0.3 k/uL (0-0.7); Eosinophils % (A) 5 %; HCT 37.1 % (34.0-46.0); HGB 12.2 gm/dL (11.4-16.0); Lymphocytes # (A) 2.6 k/uL (1.0-4.8); Lymphocytes % (A) 40 %; MCH 29.7 pg (25.0-35.0); Mean Platelet Volume 7.3; Monocytes # (A) 0.4 k/uL (0-1.0); Monocytes % (A) 7 %; Neutrophils % (A) 45 %; Platelet Count 295 k/uL (150-450); RBC 4.12 m/uL (3.80-5.40); RDW 12.7 % (11.5-15.5); WBC 6.6 k/uL (3.8-10.6)
[2020-05-27 06:20] LABS: Calcium 9.5 mg/dL (8.4-10.2); Potassium 4.5 mmol/L (3.5-5.1)
[2020-05-27] MEDS: LEVOTHYROXINE 88 MCG TAB PO SCH (07:22)
[2020-05-27 07:23] LABS: Glucose,Whole Blood 138 mg/dL (75-99)
[2020-05-27] MEDS: GLIMEPIRIDE 1 MG TAB PO SCH (08:48)
[2020-05-27] MEDS: CHOLECALCIFEROL 1,000 UNIT TAB PO SCH (08:49)
[2020-05-27] MEDS: METOPROLOL TARTRATE 25 MG TAB PO SCH ×2 (08:49→21:07)
[2020-05-27] MEDS: amLODIPine 5 MG TAB PO SCH ×2 (08:49→21:07)
[2020-05-27] MEDS: PANTOPRAZOLE 40 MG TABLET PO SCH (08:49)
[2020-05-27] MEDS: CLOPIDOGREL 75 MG TAB PO SCH (08:49)
[2020-05-27] MEDS: ISOSORBIDE MONONITRATE ER 60 MG TAB.ER.24H PO SCH (08:49)
[2020-05-27] MEDS: metFORMIN 500 MG TAB PO SCH ×2 (08:50→21:07)
[2020-05-27] MEDS: FAMOTIDINE 20 MG TAB PO SCH (08:50)
[2020-05-27] MEDS: HEPARIN SODIUM,PORCINE 5,000 UNIT/ML 1 ML VIAL SQ SCH ×2 (08:50→21:08)
[2020-05-27] MEDS: LOSARTAN 50 MG TAB PO SCH (08:50)
[2020-05-27] MEDS: SODIUM CHLORIDE 0.9% 1,000 ML IV SCH (08:54)
--- NOTE | 2020-05-27 10:05 | P.CRDCN ---
History of Present Illness Consult date: 05/27/20 History of present illness: CHIEF COMPLAINT: Failed antiplatelet therapy HISTORY OF PRESENT ILLNESS: This is a 85-year old female with a past medical history significant for CVA, diabetes mellitus, hyperlipidemia, hypertension, and coronary artery disease. Patient follows in the office with Dr. Silva. We have been asked to see the patient in consultation for failure of antiplatelet therapy. Patient examined this morning at the bedside. Patient states she began having numbness of her right arm for about a week. Patient presented to the ER for further evaluation. She went MRI of the brain revealing 5 mm area of abnormal signal within the left high parietal cortex suspicious for tiny area of acute ischemia. Patient denies history of atrial fibrillation. She denies chest pain or pressure. Denies shortness of breath. She continues to have numbness of her right hand. Patient underwent cardiac cath with Dr. Silva in September 2018 with stent placement to the circumflex. She also underwent cardiac cath in October 2018 revealing patent stents to the circumflex and LAD. DIAGNOSTICS: EKG reveals sinus mechanism, right bundle branch block, with T wave inversions in inferior and precordial leads, unchanged from previous EKG Chest xray no active cardiopulmonary disease. Laboratory data: WBC 6.6. Hemoglobin 12.2. Platelet count 295. Sodium 137. Potassium 4.5. BUN 20. Creatinine 0.77. Triglycerides 177. Cholesterol 192. LDL 83. HDL 74. Current home cardiac medications include Norvasc 5 mg twice a day, Toprol 25 mg twice a day, losartan 100 mg daily, Imdur 60 mg daily, Lasix 20-60 mg daily as needed, Plavix 35 mg daily, Lipitor 40 mg daily, aspirin 81 mg daily Echocardiogram completed reveals ejection fraction between 50 and 55% Carotid Doppler reveals 50-69% stenosis of right internal carotid artery and greater than 70% bilateral stenosis of external carotid arteries. REVIEW OF SYSTEMS: At the time of my exam: CONSTITUTIONAL: Denies fever or chills. HEENT: Denies blurred vision, vision changes, or eye pain. Denies hemoptysis CARDIOVASCULAR: Denies chest pain, orthopnea, PND or palpitations RESPIRATORY: No shortness of breath. GASTROINTESTINAL: Denies abdominal pain. Denies nausea or vomiting. HEMATOLOGIC: Denies bleeding disorders. GENITOURINARY: Denies any blood in urine. SKIN: Denies pruitis. Denies rash. PHYSICAL EXAM: VITAL SIGNS: Reviewed. GENERAL: Well-developed in no acute distress. HEENT: Head is normocephalic. Pupils are equal, round. Sclerae anicteric. Mucous membranes of the mouth are moist. Neck supple. No JVD or thyromegaly LUNGS: Respirations even and unlabored. Lungs essentially clear to auscultation bilaterally. HEART: Regular rate and rhythm. S1 and S2 heard. ABDOMEN: Soft. Nondistended. Nontender. EXTREMITIES: Normal range of motion. No clubbing or cyanosis. Peripheral pulses intact. No lower extremity edema. Right upper extremity weakness. NEUROLOGIC: Awake and alert. Oriented x 3. ASSESSMENT: Acute CVA Carotid stenosis Coronary artery disease with previous PCI to circumflex and LAD, patient reports hx of 7 stents total Hypertension Hyperlipidemia History of CVA Diabetes mellitus, type II PLAN: Continue current cardiac medications Ongoing telemetry monitoring to rule out any arrhythmias Neurology is following. Aspirin has been increased to 325mg and lipitor increased to 80mg daily. Neurology would like to switch patient from Plavix to Brilinta and requested cardiology clearance. No contraindication from a cardiology standpoint to switch from Plavix to Brilinta. Nurse practitioner note has been reviewed by physician. Signing provider agrees with the documented findings, assessment, and plan of care. 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 Last Myocardial Infarction Date:: 09/2018 History of Any Multi-Drug Resistant Organisms: None Reported Past Surgical History: Back Surgery, Breast Surgery, Heart Catheterization With Stent, Hysterectomy, Orthopedic Surgery, Tubal Ligation Additional Past Surgical History / Comment(s): PCI with a total of 7 stents, low back surgery, L breast benign bx, R rotator cuff repair, R eye cataract removed, multiple bilateral laser eye surgeries, bilateral eye stents-R one fell out, thyroidectomy d/t nodules, temporal artery bx, cervical and lumbar injections. Past Anesthesia/Blood Transfusion Reactions: Previous Problems w/ Anesthesia Additional Past Anesthesia/Blood Transfusion Reaction / Comment(s): hard to wake up Date of Last Stent Placement:: 10/19/18 Past Psychological History: Anxiety Additional Psychological History / Comment(s): Pt has her son, Geoffrey residing with her. She is visually impaired, reads with a lighted magnifying screen. She signs her name occasionally. She is able to manage her own medications. Her sons take her to appts. She ambulates with a walker. Smoking Status: Never smoker Past Alcohol Use History: None Reported Past Drug Use History: None Reported - Past Family History Mother Family Medical History: Myocardial Infarction (MT) Additional Family Medical History / Comment(s): MOTHER OF A MT AT THE AGE OF 57YRS. Brother(s) Family Medical History: Myocardial Infarction (MT) Additional Family Medical History / Comment(s): BROTHER OF A MT AT THE AGE OF 60YRS. Father Family Medical History: No Reported History Additional Family Medical History / Comment(s): FATHER LIVED TO BE 90YRS OLD. Medications and Allergies Home Medications Medication Instructions Recorded Confirmed Type Aspirin 81 mg PO HS 01/21/14 05/25/20 History Clopidogrel [Plavix] 75 mg PO DAILY 01/21/14 05/25/20 History Cholecalciferol [Vitamin D3 (25 1,000 unit PO DAILY 05/03/16 05/25/20 History Mcg = 1000 Iu)] Vits A,C,E/Lutein/Minerals 2 tab PO DAILY 05/03/16 05/25/20 History [Ocuvite with Lutein Tablet] Levothyroxine Sodium [Synthroid] 88 mcg PO DAILY 05/31/17 05/25/20 History ALPRAZolam [Xanax] 0.25 mg PO DAILY PRN #30 06/05/17 05/25/20 Rx Glimepiride [Amaryl] 1 mg PO AC-BRKFST 04/28/18 05/25/20 History metFORMIN HCL [Glucophage] 500 mg PO BID 04/28/18 05/25/20 History Acetaminophen with Codeine 1 tab PO Q6H PRN 09/25/18 05/25/20 History [Tylenol w/codeine #3] amLODIPine [Norvasc] 5 mg PO BID #60 tab 10/21/18 05/25/20 Rx Furosemide [Lasix] 20 - 60 mg PO DAILY PRN 01/08/19 05/25/20 History Isosorbide Mononitrate ER [Imdur] 60 mg PO DAILY #30 tab.er.24h 01/09/19 0 Rx Famotidine [Pepcid] 20 mg PO BID #14 tablet 03/14/19 05/25/20 Rx Atorvastatin [Lipitor] 40 mg PO DAILY 05/25/20 05/25/20 History Esomeprazole Magnesium [NexIUM 20 mg PO DAILY 05/25/20 05/25/20 History 24Hr] Gabapentin [Neurontin] 100 mg PO HS 05/25/20 05/25/20 History Losartan [Cozaar] 100 mg PO DAILY 05/25/20 05/25/20 History Metoprolol Tartrate [Lopressor] 25 mg PO BID 05/25/20 05/25/20 History Allergies Allergy/AdvReac Type Severity Reaction Status Date / Time PAPER TAPE Allergy Unknown Rash/Hives Uncoded 05/25/20 10:55 Physical Exam Vitals: Vital Signs Temp Pulse Resp BP BP Pulse Ox 05/27/20 04:11 97.5 F L 63 18 127/63 98 05/26/20 21:18 97.7 F 77 18 147/77 98 05/26/20 19:37 97.5 F L 73 16 145/66 96 05/26/20 16:19 16 05/26/20 15:41 16 05/26/20 15:02 97.4 F L 67 16 119/57 97 05/26/20 11:03 97.7 F 69 16 164/71 97 Intake and Output 05/26/20 05/27/20 05/27/20 22:59 06:59 14:59 Intake Total 480 220 Output Total 300 Balance 180 220 Intake: Intake, IV Titration 100 Amount Sodium Chloride 0.9% 1, 100 000 ml @ 50 mls/hr IV . Q20H [facility] Rx#:[id number] Oral 480 120 Output: Urine 300 Other: Voiding Method Toilet # Voids 3 # Bowel Movements 1 Results 05/27/20 05:50 05/27/20 05:50 Lipids 05/26/20 Range/Units 08:57 Triglycerides 177 H (<150) mg/dL Cholesterol 192 (<200) mg/dL HDL Cholesterol 74 H (40-60) mg/dL CBC 05/27/20 Range/Units 05:50 WBC 6.6 (3.8-10.6) k/uL RBC 4.12 (3.80-5.40) m/uL Hgb 12.2 (11.4-16.0) gm/dL Hct 37.1 (34.0-46.0) % Plt Count 295 (150-450) k/uL Comprehensive Metabolic Panel 05/26/20 05/27/20 Range/Units 08:57 05:50 Sodium 136 L 137 (137-145) mmol/L Potassium 4.7 4.5 (3.5-5.1) mmol/L Chloride 102 105 (98-107) mmol/L Carbon Dioxide 24 22 (22-30) mmol/L BUN 16 20 H (7-17) mg/dL Creatinine 0.79 0.77 (0.52-1.04) mg/dL Glucose 181 H 142 H (74-99) mg/dL Calcium 9.5 9.5 (8.4-10.2) mg/dL Current Medications Generic Name Dose Route Start Last Admin Trade Name Freq PRN Reason Stop Dose Admin Acetaminophen/Codeine Phosphate 1 each 05/25/20 21:30 Acetaminophen-Codeine 300-30mg Tab PO Q6H PRN Pain Alprazolam 0.25 mg 05/25/20 18:48 05/26/20 21:18 Alprazolam 0.25 Mg Tab PO 0.25 mg DAILY PRN Administration Anxiety Amlodipine Besylate 5 mg 05/25/20 21:00 05/27/20 08:49 Amlodipine 5 Mg Tab PO 5 mg BID [facility] Administration Aspirin 325 mg 05/26/20 21:00 05/26/20 20:24 Aspirin 325 Mg Tab PO 325 mg HS ANDREW Administration Atorvastatin Calcium 80 mg 05/26/20 21:00 05/26/20 20:25 Atorvastatin 80 Mg Tab PO 80 mg HS ANDREW Administration Cholecalciferol 1,000 unit 05/26/20 09:00 05/27/20 08:49 Cholecalciferol 1,000 Unit Tab PO 1,000 unit DAILY ANDRE[facility] Administration Clopidogrel Bisulfate 75 mg 05/26/20 09:00 05/27/20 08:49 Clopidogrel 75 Mg Tab PO 75 mg DAILY [facility] Administration Famotidine 20 mg 05/27/20 09:00 05/27/20 08:50 Famotidine 20 Mg Tab PO 20 mg DAILY [facility] Administration Gabapentin 100 mg 05/25/20 21:00 05/26/20 20:25 Gabapentin 100 Mg Cap PO 100 mg HS ANDREW Administration Glimepiride 1 mg 05/26/20 07:30 05/27/20 08:48 Glimepiride 1 Mg Tab PO 1 mg AC-BRKFST [facility] Administration Heparin Sodium (Porcine) 5,000 unit 05/25/20 21:00 05/27/20 08:50 Heparin Sodium,Porcine 5,000 Unit/Ml 1 Ml Vial SQ 5,000 unit Q12HR [facility] Administration Sodium Chloride 1,000 mls @ 50 mls/hr 05/25/20 15:00 05/27/20 08:54 Saline 0.9% IV 50 mls/hr .Q20H [facility] Administration Isosorbide Mononitrate 60 mg 05/25/20 19:00 05/27/20 08:49 Isosorbide Mononitrate Er 60 Mg Tab.Er.24h PO 60 mg DAILY ANDREW Administration Levothyroxine Sodium 88 mcg 05/26/20 06:30 05/27/20 07:22 Levothyroxine 88 Mcg Tab PO 88 mcg 0630 ANDREW Administration Losartan Potassium 100 mg 05/26/20 09:00 05/27/20 08:50 Losartan 50 Mg Tab PO 100 mg DAILY ANDREW Administration Metformin HCl 500 mg 05/25/20 21:00 05/27/20 08:50 Metformin 500 Mg Tab PO 500 mg BID ANDREW Administration Metoprolol Tartrate 25 mg 05/25/20 21:00 05/27/20 08:49 Metoprolol Tartrate 25 Mg Tab PO 25 mg BID ANDREW Administration Multivitamins/Minerals 2 each 05/26/20 09:00 05/26/20 08:52 Vit A,C & Z-Szngea-Jyeysmmx 1 Each Tab PO 2 each DAILY ANDREW Administration Pantoprazole Sodium 40 mg 05/26/20 09:00 05/27/20 08:49 Pantoprazole 40 Mg Tablet PO 40 mg DAILY ANDREW Administration Intake and Output 05/26/20 05/27/20 05/27/20 22:59 06:59 14:59 Intake Total 480 220 Output Total 300 Balance 180 220 Intake: Intake, IV Titration 100 Amount Sodium Chloride 0.9% 1, 100 000 ml @ 50 mls/hr IV . Q20H [facility] Rx#:[id number] Oral 480 120 Output: Urine 300 Other: Voiding Method Toilet # Voids 3 # Bowel Movements 1 05/27/20 05:50 05/27/20 05:50
[2020-05-27] MEDS: VIT A,C & E-LUTEIN-MINERALS 1 EACH TAB PO SCH (10:18)
[2020-05-27 12:04] LABS: Glucose,Whole Blood 163 mg/dL (75-99)
--- NOTE | 2020-05-27 16:48 | PN ---
PROGRESS NOTE DATE OF SERVICE: 05/27/2020 This is an 85-year-old woman who was admitted with acute stroke involving the right MCA territory, also right-sided weakness. No chest pain. No palpitations. No fever. PHYSICAL EXAMINATION: Alert and oriented x3. Pulse is 68, blood pressure 150/60, respiration 17, temperature normal, pulse ox 98% on room air. HEENT: Conjunctivae john. NECK: No jugular venous distension. CARDIOVASCULAR SYSTEM: S1, S2, muffled. RESPIRATORY: Breath sounds diminished at the bases, no rhonchi, no crackles. ABDOMEN: Soft. LEGS: No edema, no swelling. NERVOUS SYSTEM: Right hemiplegia and right upper limb weakness also present. LABS: Accu-Cheks 140 to 130. Other labs are noted. ASSESSMENT: 1. Acute stroke involving the left MCA territory infarction causing right upper limb and as well as right upper limb weakness. 2. 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 3. History of coronary artery disease. 4. Gait dysfunction. 5. Diabetes mellitus type 2. 6. Gastroesophageal reflux disease. 7. Hypertension. 8. Hyperlipidemia. 9. History of myocardial infarction. 10.History of episodes of angioedema. 11.History of legal blindness and macular degeneration. 12.Gastroesophageal reflux disease. 13.History of right internal carotid stenosis 50%-60%. 14.History of aortic artery stenosis 70%. 15.History of back surgery. 16.History of DJD. 17.History of CAD stent. 18.History of anxiety. 19.NO CODE, NO CPR, NO VENT. RECOMMENDATION: Recommend to continue with current management, symptomatic treatment and continue with antiplatelet agents, continue with Lipitor. Closely follow with Neurology. Otherwise, I would recommend increase ambulation, possible ECF rehab. Guarded prognosis because of multiple complex medical issues and further recommendations to follow. MMODL / IJN: [id number] /
[2020-05-27 17:11] LABS: Glucose,Whole Blood 83 mg/dL (75-99)
[2020-05-27] MEDS ORDERED: TICAGRELOR 90 MG TAB PO STA (17:58)
--- NOTE | 2020-05-27 19:41 | P.PN ---
Subjective Progress Note Date: 05/27/20 Patient states that she's doing slightly better today compared to yesterday. She continues to have weakness and numbness in the right upper extremity. She denies any further worsening of her weakness. Denies any new vision loss. Any slurring her speech. Objective - Vital Signs Vital signs: Vital Signs Temp 97.5 F L 05/27/20 12:42 Pulse 71 05/27/20 16:23 Resp 16 05/27/20 16:23 BP 154/67 05/27/20 12:42 Pulse Ox 98 05/27/20 12:42 Intake & Output 05/26/20 05/27/20 05/27/20 18:59 06:59 18:59 Intake Total 658 460 400 Output Total 1400 Balance -742 460 400 Weight 71.9 kg Intake: Intake, IV Titration 100 400 Amount Sodium Chloride 0.9% 1, 100 400 000 ml @ 50 mls/hr IV . Q20H [facility] Rx#:[id number] Oral 658 360 Output: Urine 1400 Other: Voiding Method Toilet Toilet # Voids 3 # Bowel Movements 1 - Exam GENERAL: The patient is lying in chair and is not in acute distress. CHEST: The heart rate is regular rate rhythm. No murmurs to auscultation. LUNG: Clear to auscultation bilaterally no wheezing noted throughout. Not labored breathing. ABDOMEN/GI: Bowel sounds present in all 4 quadrants. No tenderness to palpation throughout. NEUROLOGICAL: Higher mental function: The patient is awake, alert, oriented to self, place and time. Patient is following commands. No aphasia and no neglect. Cranial nerves: The pupils are round, equal and reactive to light and accommodation. Visual tsai: Patient is legally blind out of both eye but can see over the right eyes only left lower quadrant region. Extraocular movement is intact no nystagmus is noted. Facial sensation is normal to touch throughout. The facial strength is normal throughout. She is hard of hearing. Tongue is midline and moved [id number] without any difficulty. No dysarthria is noted. Shoulder shrug is normal bilaterally. Motor: Gait is defered. The strength over the right upper extremity is 4+ to 5- proximally but 3 to 4 distally. Right lower extremity is 4 (chronic from old stroke per patient). While left is 5/5. Normal tone and bulk. Sensation: Sensation is decreased to touch over the right upper and lower extremity. Reflexes (right/left): 1+ throughout. Plantars are downgoing bilaterally. - Labs CBC & Chem 7: 05/27/20 05:50 05/27/20 05:50 Labs: Abnormal Lab Results - Last 24 Hours (Table) 05/26/20 05/27/20 05/27/20 Range/Units 20:26 05:50 07:12 BUN 20 H (7-17) mg/dL Glucose 142 H (74-99) mg/dL POC Glucose (mg/dL) 159 H 138 H (75-99) mg/dL 05/27/20 Range/Units 11:43 BUN (7-17) mg/dL Glucose (74-99) mg/dL POC Glucose (mg/dL) 163 H (75-99) mg/dL Assessment and Plan Assessment: Left pariental acute ischemic stroke (new symptoms is right upper extremity weakness and numbness) Symptomatic Left ICA stenosis (50-69%). 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 Currently the patient is on aspirin 325 and Plavix 75 mg daily. I recommend for the Plavix to be discontinued and to start on Brilinta instead since the patient failed her dual antiplatelets (ASA and Plavix) but will first get clearance from her cardiology team. Cardiology has cleared switch. Will stop Plavix 75mg daily and will load patient on Brilinta 180mg once today then 90mg 1 tab bid. Continue Lipitor from 80 mg (home dose 40mg daily) because of carotid stenosis. Dr. Lainez is consulted for the carotid stenosis. --Patient does not want any intervention on her carotids. 2-D echo: Mild concentric left ventricular hypertrophy. Ejection fraction of 50-55%. Left atrium is mildly dilated. Lipid profile: Triglyceride of 177, cholesterol of 192, LDL of 83, HDL is 74. Goal of LDL is less than 70 in strokes. Cardiac monitoring Last hemoglobin A1c was on the 03/09/2020 and it was 7.2. No need to repeat it. Last TSH was on 03/09/2020 and it was 1.08. No need to repeat it. PT OT and speech therapy is consulted. Luis Gardner M.D. Neuro-hospitalist Time with Patient: Greater than 30
[2020-05-27 20:23] LABS: Glucose,Whole Blood 132 mg/dL (75-99)
[2020-05-27] MEDS ORDERED: ASPIRIN 81 MG PO SCH (21:00)
[2020-05-27] MEDS: GABAPENTIN 100 MG CAP PO SCH (21:07)
[2020-05-27] MEDS: ATORVASTATIN 80 MG TAB PO SCH (21:07)
[2020-05-27] MEDS: ALPRAZolam 0.25 MG TAB PO PRN (21:08)
[2020-05-28] MEDS: LEVOTHYROXINE 88 MCG TAB PO SCH (06:18)
[2020-05-28 06:58] LABS: Glucose,Whole Blood 147 mg/dL (75-99)
[2020-05-28 07:27] LABS: Basophils # (A) 0.1 k/uL (0-0.2); Basophils % (A) 1 %; Eosinophils # (A) 0.4 k/uL (0-0.7); Eosinophils % (A) 5 %; HCT 36.6 % (34.0-46.0); HGB 11.8 gm/dL (11.4-16.0); Lymphocytes # (A) 2.2 k/uL (1.0-4.8); Lymphocytes % (A) 31 %; MCH 29.1 pg (25.0-35.0); MCHC 32.3 g/dL (31.0-37.0); MCV 89.9 fL (80.0-100.0); Mean Platelet Volume 6.9; Monocytes # (A) 0.5 k/uL (0-1.0); Monocytes % (A) 7 %; Neutrophils # (A) 3.9 k/uL (1.3-7.7); Neutrophils % (A) 54 %; Platelet Count 295 k/uL (150-450); RBC 4.07 m/uL (3.80-5.40); RDW 12.7 % (11.5-15.5); WBC 7.2 k/uL (3.8-10.6)
[2020-05-28] MEDS: FAMOTIDINE 20 MG TAB PO SCH (08:49)
[2020-05-28] MEDS: amLODIPine 5 MG TAB PO SCH (08:56)
[2020-05-28] MEDS: CHOLECALCIFEROL 1,000 UNIT TAB PO SCH (08:56)
[2020-05-28] MEDS: PANTOPRAZOLE 40 MG TABLET PO SCH (08:56)
[2020-05-28] MEDS: METOPROLOL TARTRATE 25 MG TAB PO SCH (08:56)
[2020-05-28] MEDS: ISOSORBIDE MONONITRATE ER 60 MG TAB.ER.24H PO SCH (08:56)
[2020-05-28] MEDS: metFORMIN 500 MG TAB PO SCH (08:57)
[2020-05-28] MEDS: GLIMEPIRIDE 1 MG TAB PO SCH (08:58)
[2020-05-28] MEDS: HEPARIN SODIUM,PORCINE 5,000 UNIT/ML 1 ML VIAL SQ SCH (08:58)
[2020-05-28] MEDS: VIT A,C & E-LUTEIN-MINERALS 1 EACH TAB PO SCH (08:59)
[2020-05-28] MEDS ORDERED: TICAGRELOR 90 MG TAB PO SCH (09:00)
[2020-05-28] MEDS: LOSARTAN 50 MG TAB PO SCH (09:04)
--- NOTE | 2020-05-28 10:38 | P.PN ---
Subjective Progress Note Date: 05/28/20 CHIEF COMPLAINT: Failed antiplatelet therapy HISTORY OF PRESENT ILLNESS: Patient examined this morning at the bedside. She denies chest pain or pressure. Denies shortness of breath. She is still having some weakness in her right arm. She has been switched to Brilinta per neurology. PHYSICAL EXAM: VITAL SIGNS: Reviewed. GENERAL: Well-developed in no acute distress. HEENT: Head is normocephalic. Pupils are equal, round. Sclerae anicteric. Mucous membranes of the mouth are moist. Neck supple. No JVD or thyromegaly LUNGS: Respirations even and unlabored. Lungs essentially clear to auscultation bilaterally. HEART: Regular rate and rhythm. S1 and S2 heard. ABDOMEN: Soft. Nondistended. Nontender. EXTREMITIES: Normal range of motion. No clubbing or cyanosis. Peripheral pulses intact. No lower extremity edema. Right upper extremity weakness. NEUROLOGIC: Awake and alert. Oriented x 3. ASSESSMENT: Acute CVA Carotid stenosis Coronary artery disease with previous PCI to circumflex and LAD, patient reports hx of 7 stents total Hypertension Hyperlipidemia History of CVA Diabetes mellitus, type II PLAN: Continue Aspirin and Brilinta per neurology Continue Norvasc, Imdur, Cozaar, and metoprolol. Add oral diuretic for optimal blood pressure control. We will follow on an as-needed basis. Please call with questions or concerns. Nurse practitioner note has been reviewed by physician. Signing provider agrees with the documented findings, assessment, and plan of care. Objective - Vital Signs Vital signs: Vital Signs Temp 98.2 F 05/28/20 04:05 Pulse 78 05/28/20 08:55 Resp 20 05/28/20 09:00 BP 175/69 05/28/20 08:55 Pulse Ox 97 05/28/20 04:05 Intake & Output 05/27/20 05/28/20 05/28/20 18:59 06:59 18:59 Intake Total 400 750 Output Total 300 Balance 400 450 Intake: Intake, IV Titration 400 Amount Sodium Chloride 0.9% 1, 400 000 ml @ 50 mls/hr IV . Q20H [facility] Rx#:[id number] Oral 750 Output: Urine 300 Other: Voiding Method Toilet Toilet # Voids 1 - Labs CBC & Chem 7: 05/28/20 06:51 05/27/20 05:50 Labs: Abnormal Lab Results - Last 24 Hours (Table) 05/27/20 05/27/20 05/28/20 Range/Units 11:43 20:22 06:57 POC Glucose (mg/dL) 163 H 132 H 147 H (75-99) mg/dL
[2020-05-28] MEDS ORDERED: FUROSEMIDE 20 MG TAB PO SCH (10:45)
[2020-05-28 11:08] LABS: Glucose,Whole Blood 106 mg/dL (75-99)
[2020-05-28 11:41] VITALS: BP 154/65; PULSE 63; RESP 17; TEMP 97.9
[2020-05-28 12:16] LABS: African American GFR (CKD) 76.8 (60.0-200.0); Anion Gap 12.3 mmol/L (4.00-12.00); Calcium 9.2 mg/dL (8.7-10.3); Carbon Dioxide 20.7 mmol/L (21.6-31.8); Non-African American GFR(CKD) 66.3 (60.0-200.0); Potassium 4.7 mmol/L (3.5-5.5)
--- NOTE | 2020-05-28 14:17 | P.PN ---
Subjective Progress Note Date: 05/28/20 Patient was seen at bedside and she is accompanied by her son. That she states that the she is getting physical therapy as an inpatient and that she has more strength on the right upper extremity but still weak. She denies any further weakness numbness, visual disturbance. Patient stated that she cannot afford Brilinta and it would cost about $339 out of her pocket. Objective - Vital Signs Vital signs: Vital Signs Temp 97.9 F 05/28/20 11:40 Pulse 63 05/28/20 11:40 Resp 17 05/28/20 11:40 BP 154/65 05/28/20 11:40 Pulse Ox 96 05/28/20 11:40 Intake & Output 05/27/20 05/28/20 05/28/20 18:59 06:59 18:59 Intake Total 400 750 Output Total 300 Balance 400 450 Intake: Intake, IV Titration 400 Amount Sodium Chloride 0.9% 1, 400 000 ml @ 50 mls/hr IV . Q20H [facility] Rx#:[id number] Oral 750 Output: Urine 300 Other: Voiding Method Toilet Toilet # Voids 1 - Exam GENERAL: The patient is lying in chair and is not in acute distress. CHEST: The heart rate is regular rate rhythm. No murmurs to auscultation. LUNG: Clear to auscultation bilaterally no wheezing noted throughout. Not labored breathing. ABDOMEN/GI: Bowel sounds present in all 4 quadrants. No tenderness to palpation throughout. NEUROLOGICAL: Higher mental function: The patient is awake, alert, oriented to self, place and time. Patient is following commands. No aphasia and no neglect. Cranial nerves: The pupils are round, equal and reactive to light and accommodation. Visual tsai: Patient is legally blind out of both eye but can see over the right eyes only left lower quadrant region. Extraocular movement is intact no nystagmus is noted. Facial sensation is normal to touch throughout. The facial strength is normal throughout. She is hard of hearing. Tongue is midline and moved [id number] without any difficulty. No dysarthria is noted. Shoulder shrug is normal bilaterally. Motor: Gait is defered. The strength over the right upper extremity is 4+ to 5- proximally but 3 to 4 distally. Right lower extremity is 4 (chronic from old stroke per patient). While left is 5/5. Normal tone and bulk. Sensation: Sensation is decreased to touch over the right upper and lower extremity. Reflexes (right/left): 1+ throughout. Plantars are downgoing bilaterally. - Labs CBC & Chem 7: 05/28/20 06:51 05/28/20 06:51 Labs: Abnormal Lab Results - Last 24 Hours (Table) 05/27/20 05/28/20 05/28/20 Range/Units 20:22 06:51 06:57 Carbon Dioxide 20.7 L (21.6-31.8) mmol/L Anion Gap 12.30 H (4.00-12.00) mmol/L BUN/Creatinine Ratio 25.00 H (12.00-20.00) Ratio Glucose 144 H (70-110) mg/dL POC Glucose (mg/dL) 132 H 147 H (75-99) mg/dL 05/28/20 Range/Units 11:07 Carbon Dioxide (21.6-31.8) mmol/L Anion Gap (4.00-12.00) mmol/L BUN/Creatinine Ratio (12.00-20.00) Ratio Glucose (70-110) mg/dL POC Glucose (mg/dL) 106 H (75-99) mg/dL Assessment and Plan Assessment: Left pariental acute ischemic stroke (new symptoms is right upper extremity weakness and numbness) Symptomatic Left ICA stenosis (50-69%). 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 Continue Aspirin 81mg and Brilinta 90mg bid (home dose of ASA and Plavix but she failed since has new stroke). Since the patient could not afford Brilinta therefore will increase the aspirin from 81 mg to 325. And we will place her back on Plavix 75 mg Continue Lipitor from 80 mg (home dose 40mg daily) because of carotid stenosis. Dr. Lainez is consulted for the carotid stenosis. --Patient does not want any intervention on her carotids. Patient was notified that she should get her left carotid looked into since she denied as an inpatient she was told that to possibly think about as an outpatient as a consideration. 2-D echo: Mild concentric left ventricular hypertrophy. Ejection fraction of 50-55%. Left atrium is mildly dilated. Lipid profile: Triglyceride of 177, cholesterol of 192, LDL of 83, HDL is 74. Goal of LDL is less than 70 in strokes. Cardiac monitoring Last hemoglobin A1c was on the 03/09/2020 and it was 7.2. No need to repeat it. Last TSH was on 03/09/2020 and it was 1.08. No need to repeat it. PT OT and speech therapy is consulted. Patient was told to follow-up with her neurologist (Dr. Mccoy) as outpatient. From neurology perspective she is clear. No further workup. The plan was discussed with the patient as well as her son. Also the plan was discussed with the the primary attending. Luis Gardner M.D. Neuro-hospitalist Time with Patient: Greater than 30
--- NOTE | 2020-05-29 06:23 | DS ---
DISCHARGE SUMMARY FINAL DIAGNOSES: 1. Acute stroke involving the left MCA territory infarction causing right upper limb weakness and as well as right hand weakness. 2. Old right hemiparesis. 3. History of coronary artery disease. 4. Gait dysfunction. 5. Diabetes mellitus type 2. 6. Gastroesophageal reflux disease. 7. Hypertension. 8. Hyperlipidemia. 9. History of myocardial infarction. 10.History of episode of angioedema. 11.History of legal blindness and macular degeneration. 12.History of right internal carotid stenosis 50% to 60%; external carotid artery stenosis 70%. 13.History of back surgery. 14.History of degenerative joint disease. 15.History of coronary artery disease, stent. 16.History of anxiety. 17.NO CODE, NO CPR, NO VENT. DISCHARGE DISPOSITION: The patient will be discharged in stable condition with guarded prognosis. Total time taken 35 minutes. HISTORY OF PRESENT ILLNESS: This 85-year-old woman with a past medical history of multiple medical problems admitted with acute on chronic stroke. The patient was recommended to rehab at this time. Patient would like to go home at this time. The medications were adjusted. Brilinta was suggested by Dr. Gardner, the neurologist, but however the patient unable to afford it so higher dose of Ecotrin was suggested. On exam, vitals are stable. CARDIOVASCULAR: S1, S2 muffled. ABDOMEN: Soft. NERVOUS SYSTEM: Mild right weakness present. DISCHARGE ADVICE AND MEDICATIONS: 1. Diet is cardiac diet. 2. Activity limited until followup. 3. Follow up with Dr. Anthony Cameron 2 to 3 days. 4. Follow up with Neurology as recommended. Medications are: 1. Amaryl 1 mg a.c. breakfast. 2. Cozaar 100 mg daily. 3. Glucophage 500 mg b.i.d. 4. Lasix 20 to 60 mg as before. 5. Lipitor 40 mg daily. 6. Lopressor 25 mg b.i.d. 7. Neurontin 100 mg at bedtime. 8. Esomeprazole, Nexium, 20 mg p.o. daily. 9. Vitamin A, C, E one daily. 10.Synthroid 88 mcg p.o. daily. 11.Tylenol p.r.n. 12.Vitamin D3, 1000 daily. 13.Aspirin 325 mg p.o. daily. 14.Imdur ER 60 mg p.o. daily. 15.Norvasc 5 mg p.o. b.i.d. 16.Pepcid 20 mg p.o. b.i.d. 17.Plavix 75 mg p.o. daily. 18.Xanax 0.25 p.o. daily. Follow with Dr. Carty as recommended. MMODL / IJN: [id number] /
--- NOTE | 2020-05-29 13:00 | CDI ---
Documentation Clarification Form Date: 05/29/20 From: Eli Spence Phone: If you have a question about this query, please contact Brenda Harding, Loans Consultant at [phone] between 8am and 5pm. Admit Date: 05/25/20 Discharge Date:05/28/20 Patient Name: Praveena Brewster Visit Number: [id number] ATTENTION: The Clinical Documentation Specialists (CDI) and [facility] Coding Staff appreciate your assistance in clarifying documentation. Please respond to the clarification below the line at the bottom and electronically sign. The CDI & [facility] Coding staff will review the response and follow-up if needed. Please note: Queries are made part of the Legal Health Record. If you have any questions, please contact the author of this message via ITS. Dear Dr. Alcantara Acute stroke involving the left MCA territory infarction is documented throughout the record. Right internal carotid stenosis 50% to 60% and external carotid artery stenosis 70% is also documented throughout the record. Neurology consult documented symptomatic left ICA stenosis 50 - 69%. Patient refused surgery at this time. History/risk factors: History of CVA, carotid artery stenosis, hypertension Clinical Indicators: Right upper extremity weakness CT: Nonspecific white matter changes, remote microvascular ischemia, acute ischemia correlated with MRI MRI/MRA: Left parietal acute ischemic stroke Treatment: Plavix and platelet therapy In your professional opinion, please clarify each of the following: Stroke resulting from Carotid Artery Stenosis Stroke not resulting from Carotid Artery Stenosis Other: Unable to determine Stroke not resulting from Carotid Artery Stenosis MTDD
== END 2020-05-28 16:01 | disposition home or self-care (01) | DRG 65 ==
LOC: EC 10:28 → 3SCARD 14:54 → 6NMEDSUR 05-26 21:14
PROVIDERS: ADMIT Hospitalist; ATTEND Hospitalist
DX: I63.9 Cerebral infarction, unspecified (principal); G81.91 Hemiplegia, unspecified affecting right dominant side; R29.704 NIHSS score 4; I65.23 Occlusion and stenosis of bilateral carotid arteries; E11.9 Type 2 diabetes mellitus without complications; E78.5 Hyperlipidemia, unspecified; E89.0 Postprocedural hypothyroidism; H35.30 Unspecified macular degeneration; H54.8 Legal blindness, as defined in USA; H91.90 Unspecified hearing loss, unspecified ear; I25.10 Atherosclerotic heart disease of native coronary artery without angina pectoris; I25.2 Old myocardial infarction; I45.10 Unspecified right bundle-branch block; I69.341 Monoplegia of lower limb following cerebral infarction affecting right dominant side; K21.9 Gastro-esophageal reflux disease without esophagitis; F41.9 Anxiety disorder, unspecified; G43.909 Migraine, unspecified, not intractable, without status migrainosus; K44.9 Diaphragmatic hernia without obstruction or gangrene; M15.9 Polyosteoarthritis, unspecified; M47.9 Spondylosis, unspecified; I11.9 Hypertensive heart disease without heart failure; Z79.02 Long term (current) use of antithrombotics/antiplatelets; Z79.82 Long term (current) use of aspirin; Z79.84 Long term (current) use of oral hypoglycemic drugs; Z79.890 Hormone replacement therapy; Z79.899 Other long term (current) drug therapy; Z95.5 Presence of coronary angioplasty implant and graft; Z91.048 Other nonmedicinal substance allergy status; Z90.710 Acquired absence of both cervix and uterus; Z98.51 Tubal ligation status; Z98.41 Cataract extraction status, right eye; Z98.890 Other specified postprocedural states; R26.9 Unspecified abnormalities of gait and mobility; Z66 Do not resuscitate; Z82.49 Family history of ischemic heart disease and other diseases of the circulatory system
CPT/HCPCS: 36415; 70450; 70551; 71045; 80048; 80053; 80061; 81003; 84484; 85025; 85610; 85730; 93005; 93306; 93880; 96360; 96361; 99291

== ENCOUNTER 2020-08-04 14:37 | Emergency (ER) | payer MEDICARE, BC ==
[2020-08-04 15:09] VITALS: TEMP 98.6
[2020-08-04] MEDS ORDERED: MORPHINE SULFATE 4 MG/ML SYRINGE IV STA (15:36)
--- NOTE | 2020-08-04 15:42 | ED ---
General Adult HPI - General Chief complaint: Extremity Problem,Nontraumatic Stated complaint: R Hip Pain Time Seen by Provider: 08/04/20 15:18 Source: patient, RN notes reviewed Mode of arrival: wheelchair Limitations: physical limitation - History of Present Illness Initial comments: Patient is a pleasant 85-year-old female presenting to the emergency department complaints of right hip pain. Onset of symptoms was 2 weeks ago. Patient denies any injury or fall. No history of similar symptoms previously. Patient does do rehab secondary to history of stroke with right-sided weakness. Patient states discomfort greatly increases with movement. Patient does have use her walker to walk. No fever. No rash. Discomfort is mostly at the right hip. There may be minimal radiation towards the right upper thigh. No back pain. No other area of involvement. - Related Data Home Medications Medication Instructions Recorded Confirmed Cholecalciferol [Vitamin D3 (25 1,000 unit PO DAILY 05/03/16 05/25/20 Mcg = 1000 Iu)] Vits A,C,E/Lutein/Minerals 2 tab PO DAILY 05/03/16 05/25/20 [Ocuvite with Lutein Tablet] Levothyroxine Sodium [Synthroid] 88 mcg PO DAILY 05/31/17 05/25/20 Glimepiride [Amaryl] 1 mg PO [id number] 04/28/18 05/25/20 metFORMIN HCL [Glucophage] 500 mg PO BID 04/28/18 05/25/20 Acetaminophen with Codeine 1 tab PO Q6H PRN 09/25/18 05/25/20 [Tylenol w/codeine #3] Furosemide [Lasix] 20 - 60 mg PO DAILY PRN 01/08/19 05/25/20 Atorvastatin [Lipitor] 40 mg PO DAILY 05/25/20 05/25/20 Esomeprazole Magnesium [NexIUM 20 mg PO DAILY 05/25/20 05/25/20 24Hr] Gabapentin [Neurontin] 100 mg PO HS 05/25/20 05/25/20 Losartan [Cozaar] 100 mg PO DAILY 05/25/20 05/25/20 Metoprolol Tartrate [Lopressor] 25 mg PO BID 05/25/20 05/25/20 Previous Rx's Medication Instructions Recorded ALPRAZolam [Xanax] 0.25 mg PO DAILY PRN #30 06/05/17 amLODIPine [Norvasc] 5 mg PO BID #60 tab 10/21/18 Isosorbide Mononitrate ER [Imdur] 60 mg PO DAILY #30 tab.er.24h 01/09/19 Famotidine [Pepcid] 20 mg PO BID #14 tablet 03/14/19 Aspirin 325 mg PO DAILY #30 tab 05/28/20 Clopidogrel [Plavix] 75 mg PO DAILY #30 tab 05/28/20 Allergies Allergy/AdvReac Type Severity Reaction Status Date / Time PAPER TAPE Allergy Unknown Rash/Hives Uncoded 08/04/20 15:09 Review of Systems ROS Statement: Those systems with pertinent positive or pertinent negative responses have been documented in the HPI. ROS Other: All systems not noted in ROS Statement are negative. Constitutional: Denies: fever, chills Eyes: Denies: eye pain ENT: Denies: ear pain Respiratory: Denies: cough Cardiovascular: Denies: chest pain Endocrine: Denies: fatigue Gastrointestinal: Denies: abdominal pain Genitourinary: Denies: urgency Musculoskeletal: Reports: as per HPI. Denies: back pain Skin: Denies: rash Past Medical History Past Medical History: Coronary Artery Disease (CAD), CVA/TIA, Diabetes Mellitus, Eye Disorder, GERD/Reflux, Hearing Disorder / Deafness, Hyperlipidemia, Hypertension, Myocardial Infarction ([place]), Osteoarthritis (OA), Thyroid Disorder Additional Past Medical History / Comment(s): EPISODES OF ANGIOEDEMA, NIDDM TYPE II, 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 Last Myocardial Infarction Date:: 09/2018 History of Any Multi-Drug Resistant Organisms: None Reported Past Surgical History: Back Surgery, Breast Surgery, Heart Catheterization With Stent, Hysterectomy, Orthopedic Surgery, Tubal Ligation Additional Past Surgical History / Comment(s): PCI with a total of 7 stents, low back surgery, L breast benign bx, R rotator cuff repair, R eye cataract removed, multiple bilateral laser eye surgeries, bilateral eye stents-R one fell out, thyroidectomy d/t nodules, temporal artery bx, cervical and lumbar injections. Past Anesthesia/Blood Transfusion Reactions: Previous Problems w/ Anesthesia Additional Past Anesthesia/Blood Transfusion Reaction / Comment(s): hard to wake up Date of Last Stent Placement:: 10/19/18 Past Psychological History: Anxiety Smoking Status: Never smoker Past Alcohol Use History: None Reported Past Drug Use History: None Reported - Past Family History Mother Family Medical History: Myocardial Infarction ([place]) Additional Family Medical History / Comment(s): MOTHER OF A [place] AT THE AGE OF 57YRS. Brother(s) Family Medical History: Myocardial Infarction ([place]) Additional Family Medical History / Comment(s): BROTHER OF A [place] AT THE AGE OF 60YRS. Father Family Medical History: No Reported History Additional Family Medical History / Comment(s): FATHER LIVED TO BE 90YRS OLD. General Exam Limitations: physical limitation General appearance: alert, in no apparent distress Head exam: Present: normocephalic Eye exam: Present: normal appearance Neck exam: Present: normal inspection. Absent: tenderness Respiratory exam: Present: normal lung sounds bilaterally Cardiovascular Exam: Present: regular rate, normal rhythm Expanded Peripheral pulses: 2+: Dorsalis Pedis (R), Dorsalis Pedis (L) GI/Abdominal exam: Present: soft. Absent: tenderness Extremities exam: Present: full ROM (Pain with active range of motion. No pain with passive range of motion), tenderness (Patient does have moderate tenderness right hip mostly laterally.), other (No warmth or swelling. There is mild ecchymosis right lateral hip. Distally the extremity is neurovascular intact.) Neurological exam: Present: alert Psychiatric exam: Present: normal affect, normal mood Skin exam: Present: other (Mild ecchymosis right lateral hip) Course Vital Signs 08/04/20 15:07 Temperature 98.6 F Pulse Rate 87 Respiratory 20 Rate Blood Pressure 164/80 Medical Decision Making - Medical Decision Making Patient reevaluated and feeling much better following pain medication. Patient is requesting discharge home. Patient is updated on results and need for follow-up. Case was discussed with practitioner Nehemiah, nehemias for Dr. Cameron who agrees with plan. - Lab Data Result diagrams: 08/04/20 15:46 08/04/20 15:46 Lab Results 08/04/20 08/04/20 08/04/20 Range/Units 15:46 15:46 15:46 WBC 8.8 (3.8-10.6) k/uL RBC 4.30 (3.80-5.40) m/uL Hgb 13.2 (11.4-16.0) gm/dL Hct 38.0 (34.0-46.0) % MCV 88.5 (80.0-100.0) fL MCH 30.7 (25.0-35.0) pg MCHC 34.7 (31.0-37.0) g/dL RDW 12.3 (11.5-15.5) % Plt Count 310 (150-450) k/uL MPV 7.2 Neutrophils % 64 % Lymphocytes % 20 % Monocytes % 8 % Eosinophils % 5 % Basophils % 1 % Neutrophils # 5.7 (1.3-7.7) k/uL Lymphocytes # 1.7 (1.0-4.8) k/uL Monocytes # 0.7 (0-1.0) k/uL Eosinophils # 0.4 (0-0.7) k/uL Basophils # 0.1 (0-0.2) k/uL PT 9.7 (9.0-12.0) sec INR 0.9 (<1.2) APTT 26.1 (22.0-30.0) sec Sodium 133 L (137-145) mmol/L Potassium 4.4 (3.5-5.1) mmol/L Chloride 96 L (98-107) mmol/L Carbon Dioxide 28 (22-30) mmol/L Anion Gap 9 mmol/L BUN 15 (7-17) mg/dL Creatinine 0.81 (0.52-1.04) mg/dL Est GFR (CKD-EPI)AfAm 76 (>60 ml/min/1.73 sqM) Est GFR (CKD-EPI)NonAf 66 (>60 ml/min/1.73 sqM) Glucose 211 H (74-99) mg/dL Plasma Lactic Acid German (0.7-2.0) mmol/L Calcium 9.1 (8.4-10.2) mg/dL Total Bilirubin 0.4 (0.2-1.3) mg/dL AST 22 (14-36) U/L ALT 17 (4-34) U/L Alkaline Phosphatase 145 H (38-126) U/L C-Reactive Protein 14.6 H (<10.0) mg/L Total Protein 7.5 (6.3-8.2) g/dL Albumin 4.5 (3.5-5.0) g/dL 08/04/20 Range/Units 15:46 WBC (3.8-10.6) k/uL RBC (3.80-5.40) m/uL Hgb (11.4-16.0) gm/dL Hct (34.0-46.0) % MCV (80.0-100.0) fL MCH (25.0-35.0) pg MCHC (31.0-37.0) g/dL RDW (11.5-15.5) % Plt Count (150-450) k/uL MPV Neutrophils % % Lymphocytes % % Monocytes % % Eosinophils % % Basophils % % Neutrophils # (1.3-7.7) k/uL Lymphocytes # (1.0-4.8) k/uL Monocytes # (0-1.0) k/uL Eosinophils # (0-0.7) k/uL Basophils # (0-0.2) k/uL PT (9.0-12.0) sec INR (<1.2) APTT (22.0-30.0) sec Sodium (137-145) mmol/L Potassium (3.5-5.1) mmol/L Chloride (98-107) mmol/L Carbon Dioxide (22-30) mmol/L Anion Gap mmol/L BUN (7-17) mg/dL Creatinine (0.52-1.04) mg/dL Est GFR (CKD-EPI)AfAm (>60 ml/min/1.73 sqM) Est GFR (CKD-EPI)NonAf (>60 ml/min/1.73 sqM) Glucose (74-99) mg/dL Plasma Lactic Acid German 1.7 (0.7-2.0) mmol/L Calcium (8.4-10.2) mg/dL Total Bilirubin (0.2-1.3) mg/dL AST (14-36) U/L ALT (4-34) U/L Alkaline Phosphatase (38-126) U/L C-Reactive Protein (<10.0) mg/L Total Protein (6.3-8.2) g/dL Albumin (3.5-5.0) g/dL - Radiology Data Radiology results: report reviewed (Ultrasound negative for DVT), image reviewed (X-ray right hip and pelvis reveals no acute process) Disposition Clinical Impression: Hip pain Disposition: HOME SELF-CARE Condition: Stable Instructions (If sedation given, give patient instructions): Hip Pain (ED) Additional Instructions: Please follow-up with primary care physician in the next day or 2 for recheck. Please also follow-up with orthopedics, number provided. [id number] Motrin as needed. Return for fever, increased pain, swelling, redness, worsening or changing symptoms or other concerns. Is patient prescribed a controlled substance at d/c from ED?: No Referrals: Anthony Cameron MD [Primary Care Provider] - 1-2 days Pilo Pop MD [STAFF PHYSICIAN] - 1-2 days Time of Disposition: 17:27
--- NOTE | 2020-08-04 16:25 | XR ---
EXAMINATION TYPE: XR Hip RT and AP Pelvis DATE OF EXAM: 08/04/2020 COMPARISON: Abdominal x-ray April 14, 2020 HISTORY: Pelvic and right hip pain. TECHNIQUE: A single AP view of the pelvis is obtained. Two views of the right hip are obtained. FINDINGS: There is no acute fracture/dislocation evident in the pelvis. The sacroiliac joints appea r symmetric and within normal limits. Pubic symphysis is intact. Vascular calcification and phlebolit hs redemonstrated over the bilateral pelvis. There is moderate axial joint space loss in both hips le ft slightly worse than right redemonstrated with bilateral mild acetabular spurring. Bilateral groin arterial vascular calcification. Two views of right hip show no acute fracture or dislocation. No new suspicious focal lytic or scler otic lesion seen in the proximal right femur. Right groin arterial calcification redemonstrated. IMPRESSION: As above. No significant change from April 14, 2020 abdominal x-ray.
[2020-08-04 16:26] LABS: Basophils # (A) 0.1 k/uL (0-0.2); Basophils % (A) 1 %; Eosinophils # (A) 0.4 k/uL (0-0.7); Eosinophils % (A) 5 %; HGB 13.2 gm/dL (11.4-16.0); Lymphocytes # (A) 1.7 k/uL (1.0-4.8); Lymphocytes % (A) 20 %; MCH 30.7 pg (25.0-35.0); MCHC 34.7 g/dL (31.0-37.0); MCV 88.5 fL (80.0-100.0); Mean Platelet Volume 7.2; Monocytes # (A) 0.7 k/uL (0-1.0); Monocytes % (A) 8 %; Neutrophils # (A) 5.7 k/uL (1.3-7.7); Neutrophils % (A) 64 %; Platelet Count 310 k/uL (150-450); RDW 12.3 % (11.5-15.5); WBC 8.8 k/uL (3.8-10.6)
[2020-08-04 16:30] LABS: INR 0.9 (<1.2); Partial Thromboplastin Time 26.1 sec (22.0-30.0); Prothrombin Time 9.7 sec (9.0-12.0)
[2020-08-04 16:37] LABS: Albumin 4.5 g/dL (3.5-5.0); C Reactive Protein 14.6 mg/L (<10.0); Calcium 9.1 mg/dL (8.4-10.2); Potassium 4.4 mmol/L (3.5-5.1); Total Bilirubin 0.4 mg/dL (0.2-1.3); Total Protein 7.5 g/dL (6.3-8.2)
--- NOTE | 2020-08-04 16:55 | US ---
EXAMINATION TYPE: US venous doppler duplex LE RT DATE OF EXAM: 08/04/2020 4:35 PM COMPARISON: NONE CLINICAL HISTORY: pain. Hip pain. No redness or swelling. No hx blood clot. SIDE PERFORMED: Right TECHNIQUE: The lower extremity deep venous system is examined utilizing real time linear array sonog jace with graded compression, doppler sonography and color-flow sonography. VESSELS IMAGED: Common Femoral Vein Deep Femoral Vein Greater Saphenous Vein * Femoral Vein Popliteal Vein Small Saphenous Vein * Proximal Calf Veins (* superficial vessels) Right Leg: Negative for DVT IMPRESSION: No evidence of deep vein thrombosis in the right leg.
[2020-08-04] MEDS ORDERED: ACET/COD 300 MG/30 MG STARTER PACK 6 TAB BTL PO STA (17:28)
[2020-08-04 18:24] VITALS: BP 167/81; PULSE 81; RESP 18
== END 2020-08-04 18:22 | disposition home or self-care (01) ==
LOC: EC 14:37
DX: M25.551 Pain in right hip (principal); R58 Hemorrhage, not elsewhere classified; M19.041 Primary osteoarthritis, right hand; M19.042 Primary osteoarthritis, left hand; E11.9 Type 2 diabetes mellitus without complications; K21.9 Gastro-esophageal reflux disease without esophagitis; E78.5 Hyperlipidemia, unspecified; I10 Essential (primary) hypertension; I25.2 Old myocardial infarction; G43.909 Migraine, unspecified, not intractable, without status migrainosus; F41.9 Anxiety disorder, unspecified; H54.62 Unqualified visual loss, left eye, normal vision right eye; I25.10 Atherosclerotic heart disease of native coronary artery without angina pectoris; I69.351 Hemiplegia and hemiparesis following cerebral infarction affecting right dominant side; Z79.82 Long term (current) use of aspirin; Z79.84 Long term (current) use of oral hypoglycemic drugs; Z79.899 Other long term (current) drug therapy; Z79.890 Hormone replacement therapy; Z91.048 Other nonmedicinal substance allergy status; Z95.5 Presence of coronary angioplasty implant and graft; Z98.890 Other specified postprocedural states
CPT/HCPCS: 36415; 80053; 83605; 85025; 85610; 85730; 86140; 87040; 73502; 93971; 96374; 99284; J2270

== ENCOUNTER → 2020-10-08 | Outpatient (CLI) | payer MEDICARE, BC ==
--- NOTE | 2020-10-08 12:49 | CT ---
EXAMINATION TYPE: CT lumbar spine wo con DATE OF EXAM: 10/08/2020 COMPARISON: None HISTORY: low back pain CT DLP: 882.[address] of the lumbar spine was performed. Bone and soft tissue window settings are submitted as well as coronal and sagittal reconstructions. L1-L2: Vacuum disc noted. Posterior disc bulge. Effacement ventral thecal sac. Retrolisthesis L1 on L 2 measuring 5 mm. Bilateral lateral recess stenosis without central stenosis. No juan josé disc herniatio n. Facet joint arthropathy. L2-L3: Vacuum disks noted. Posterior disc bulge with partial encapsulating spur. Hypertrophy ligament um flavum and facet joint arthropathy resulting in moderate central stenosis. Bilateral foraminal and encroachment identified. L3-L4: Moderate to severe degenerative disc space narrowing. Grade 1 anterolisthesis L3 on L4 measuri ng 5 mm. Posterior disc bulge with hypertrophy ligamentum flavum and facet joint arthropathy resultin g in moderate to severe central stenosis. L4-L5: Moderate to severe degenerative disc space narrowing. Posterior disc bulge with hypertrophy li gamentum flavum and facet joint arthropathy resulting in moderate to severe central stenosis. L5-S1: Mild degenerative disc space narrowing. No disc herniation protrusion or central stenosis. No facet joint arthropathy. No evidence for foraminal encroachment. No paraspinal masses are identified. Lumbar segments are free if fracture. Curvature noted convex to the left. IMPRESSION: 1. 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
== END | disposition home or self-care (01) ==
LOC: RADCTMAIN 11:46
PROVIDERS: ATTEND Physical Medicine & Rehabilitation
DX: M48.061 Spinal stenosis, lumbar region without neurogenic claudication (principal); M51.36 Other intervertebral disc degeneration, lumbar region; M43.16 Spondylolisthesis, lumbar region; M47.817 Spondylosis without myelopathy or radiculopathy, lumbosacral region; M41.26 Other idiopathic scoliosis, lumbar region; E11.9 Type 2 diabetes mellitus without complications; M16.0 Bilateral primary osteoarthritis of hip
CPT/HCPCS: 72131

== ENCOUNTER → 2021-02-11 | Outpatient (CLI) | payer MEDICARE, BC ==
--- NOTE | 2021-02-13 06:27 | BD ---
EXAMINATION TYPE: Axial Bone Density PT IS IN A WHEELCHAIR DATE OF EXAM: 02/11/2021 COMPARISON: 02.14.2018 CLINICAL HISTORY: 85 YR OLD FEMALE....ICD-10 CODE: Z78.0 MENOPAUSAL Height: 56 Weight: 162 FRAX RISK QUESTIONS: Secondary Osteoporosis: YES 3. Menopause before 45: YES RISK FACTORS HISTORY OF: Surgery to Spine LUMBAR SPINE SURG, 1999 Family History of Osteoporosis: YES Postmenopausal woman: YES, EARLY Lost more than 2 inches in height since high school: YES Frequent falls: UNSTEADY, IN W/C....CANE Poor Health: ELDERLY Hyperparathyroidism: NO Adrenal Insufficiency: NO MEDICATIONS: Thyroid Medications: YES, SYNTHROID 30+ YRS Additional Medications: BP MEDS, HEART MEDS, METFORMIN AND ANOTHER, REFLUX, CHOLESTEROL, VIT D 3, OC UVITE Additional History: HX OF SEVERAL STROKES, BLIND IN LT EYE, REFLUX DIABETIC, HYPERTENSION, EXAM MEASUREMENTS: Bone mineral densitometry was performed using the [employer] System. SPINAL SURG, 1999....SPINE NOT SCANNED Bone mineral density about the R hip (g/cm2): 1.015 Bone mineral density about the L hip (g/cm2): 1.053 T Score values are as follows: -----R Neck: -1.0 -----L Neck: -0.6 -----R Total: 0.1 -----L Total: 0.4 Bone mineral density has: Decreased -2.2% since study of: 02.14.2018 FRAX%s: THERE IS A 9.3% CHANCE FOR A MAJOR OSTEOPOROTIC FX AND A 2.3% FOR HIP......PROBABILITY FOR FX IN 10 YRS TIME Bone mineral density about the L Wrist (g/cm2): 0.555 T Score values are as follows: -----Dist. R+U: -1.7 -----Prox. R+U: -0.6 -----Radius total: -1.5 Bone mineral density has: Increased 0.1% since study of: 02.14.2018 IMPRESSION: Normal (Values between +1 and -1 indicate normal bone mass). Consider repeating this study in 5 year s or sooner if there is some new clinical indication. NOTE: T-SCORE=SD OF THE YOUNG ADULT MEAN.
== END | disposition home or self-care (01) ==
LOC: RADBDWWP 10:22
PROVIDERS: ATTEND Family Medicine
DX: Z13.820 Encounter for screening for osteoporosis (principal); Z78.0 Asymptomatic menopausal state
CPT/HCPCS: 77080

== ENCOUNTER → 2021-03-22 | Outpatient (CLI) | payer MEDICARE, BC ==
--- NOTE | 2021-03-22 12:12 | XR ---
EXAMINATION TYPE: XR chest 2V DATE OF EXAM: 03/22/2021 COMPARISON: 05/25/2020 HISTORY: 85-year-old female J1 8.9 TECHNIQUE: Frontal and lateral views FINDINGS: The cardiomediastinal silhouette, aorta, and pulmonary vasculature are within normal limits. Mild pat torito posterior basilar opacity. Upper lungs are clear. No pleural effusion. IMPRESSION: Some mild patchy posterior basilar opacity on the lateral view could reflect atelectasis or a develop ing infiltrate. Correlate with patient's symptoms.
== END | disposition home or self-care (01) ==
LOC: RADXRMAIN 11:43
PROVIDERS: ATTEND Nurse Practitioner
DX: J18.9 Pneumonia, unspecified organism (principal)
CPT/HCPCS: 71046

== ENCOUNTER 2021-03-26 14:04 | Inpatient (IN) | payer MEDICARE, BC ==
--- NOTE | 2021-03-26 14:48 | ED ---
General Adult HPI - General Chief complaint: Shortness of Breath Stated complaint: pneumonia Time Seen by Provider: 03/26/21 14:12 Source: patient, RN notes reviewed, old records reviewed Mode of arrival: wheelchair Limitations: no limitations - History of Present Illness Initial comments: 85-year-old female presenting for evaluation of cough, dyspnea. Patient has been treated on an outpatient basis for pneumonia. She's been on intramuscular and oral antibiotics. She was sent in by her primary care provider today for evaluation and treatment. She had been taken off of her Lasix approximately 2 weeks ago and this was reinitiated earlier this week. She's had some bilateral lower extremity swelling. She has a chest pressure. No central chest pain. No recorded fever. No vomiting. - Related Data Home Medications Medication Instructions Recorded Confirmed Cholecalciferol [Vitamin D3 (25 1,000 unit PO DAILY 05/03/16 05/25/20 Mcg = 1000 Iu)] Vits A,C,E/Lutein/Minerals 2 tab PO DAILY 05/03/16 05/25/20 [Ocuvite with Lutein Tablet] Levothyroxine Sodium [Synthroid] 88 mcg PO DAILY 05/31/17 05/25/20 Glimepiride [Amaryl] 1 mg PO [id number] 04/28/18 05/25/20 metFORMIN HCL [Glucophage] 500 mg PO BID 04/28/18 05/25/20 Acetaminophen with Codeine 1 tab PO Q6H PRN 09/25/18 05/25/20 [Tylenol w/codeine #3] Furosemide [Lasix] 20 - 60 mg PO DAILY PRN 01/08/19 05/25/20 Atorvastatin [Lipitor] 40 mg PO DAILY 05/25/20 05/25/20 Esomeprazole Magnesium [NexIUM 20 mg PO DAILY 05/25/20 05/25/20 24Hr] Gabapentin [Neurontin] 100 mg PO HS 05/25/20 05/25/20 Losartan [Cozaar] 100 mg PO DAILY 05/25/20 05/25/20 Metoprolol Tartrate [Lopressor] 25 mg PO BID 05/25/20 05/25/20 Previous Rx's Medication Instructions Recorded ALPRAZolam [Xanax] 0.25 mg PO DAILY PRN #30 06/05/17 amLODIPine [Norvasc] 5 mg PO BID #60 tab 10/21/18 Isosorbide Mononitrate ER [Imdur] 60 mg PO DAILY #30 tab.er.24h 01/09/19 Famotidine [Pepcid] 20 mg PO BID #14 tablet 03/14/19 Aspirin 325 mg PO DAILY #30 tab 05/28/20 Clopidogrel [Plavix] 75 mg PO DAILY #30 tab 05/28/20 Allergies Allergy/AdvReac Type Severity Reaction Status Date / Time PAPER TAPE Allergy Unknown Rash/Hives Uncoded 03/26/21 14:10 Review of Systems ROS Statement: Those systems with pertinent positive or pertinent negative responses have been documented in the HPI. ROS Other: All systems not noted in ROS Statement are negative. 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 Last Myocardial Infarction Date:: 09/2018 History of Any Multi-Drug Resistant Organisms: None Reported Past Surgical History: Back Surgery, Breast Surgery, Heart Catheterization With Stent, Hysterectomy, Orthopedic Surgery, Tubal Ligation Additional Past Surgical History / Comment(s): PCI with a total of 7 stents, low back surgery, L breast benign bx, R rotator cuff repair, R eye cataract removed, multiple bilateral laser eye surgeries, bilateral eye stents-R one fell out, thyroidectomy d/t nodules, temporal artery bx, cervical and lumbar injections. Past Anesthesia/Blood Transfusion Reactions: Previous Problems w/ Anesthesia Additional Past Anesthesia/Blood Transfusion Reaction / Comment(s): hard to wake up Date of Last Stent Placement:: 10/19/18 Past Psychological History: Anxiety Smoking Status: Never smoker Past Alcohol Use History: None Reported Past Drug Use History: None Reported - Past Family History Mother Family Medical History: Myocardial Infarction ([place]) Additional Family Medical History / Comment(s): MOTHER OF A [place] AT THE AGE OF 57YRS. Brother(s) Family Medical History: Myocardial Infarction ([place]) Additional Family Medical History / Comment(s): BROTHER OF A [place] AT THE AGE OF 60YRS. Father Family Medical History: No Reported History Additional Family Medical History / Comment(s): FATHER LIVED TO BE 90YRS OLD. General Exam Limitations: no limitations General appearance: alert, in no apparent distress Head exam: Present: atraumatic, normocephalic Eye exam: Present: normal appearance, PERRL ENT exam: Present: normal exam Neck exam: Present: normal inspection. Absent: tenderness, meningismus Respiratory exam: Present: rales, decreased breath sounds. Absent: respiratory distress Cardiovascular Exam: Present: regular rate, normal rhythm GI/Abdominal exam: Present: soft. Absent: distended, tenderness Extremities exam: Present: normal capillary refill, pedal edema Neurological exam: Present: alert, oriented X3, CN II-XII intact. Absent: motor sensory deficit Psychiatric exam: Present: normal affect, normal mood Skin exam: Present: warm, dry, intact. Absent: cyanosis, diaphoretic Course Vital Signs 03/26/21 14:06 Temperature 98.9 F Pulse Rate 64 Respiratory 22 Rate Blood Pressure 123/71 O2 Sat by Pulse 98 Oximetry - Reevaluation(s) Reevaluation #1: 03/26/21 15:26 Coronavirus test pending EKG Findings - EKG Comments: EKG Findings:: Sinus bradycardia, right bundle branch block, rate of 59, VA interval 186, QRS duration 120, QTC 443, no ST segment elevation. Medical Decision Making - Medical Decision Making 85-year-old female presenting with cough and dyspnea, x-ray evidence of pneumonia on outpatient testing who has been on both oral and intramuscular antibiotics with failure to improve. She had a coronavirus test about 5 days ago which was negative. Chest x-ray performed today shows a persistent basilar infiltrate. She started on ceftriaxone and azithromycin. She has a mild leukocytosis of 12.6. In similar to what abnormalities. Her troponin and BNP are within normal limits, lactic acid is normal. She will be admitted for treatment of pneumonia, failed outpatient treatment. Case discussed with Dr. Menard who will admit. - Lab Data Result diagrams: 03/26/21 14:41 03/26/21 14:41 Lab Results 03/26/21 03/26/21 03/26/21 Range/Units 14:41 14:41 14:41 WBC 12.6 H (3.8-10.6) k/uL RBC 4.52 (3.80-5.40) m/uL Hgb 13.8 (11.4-16.0) gm/dL Hct 40.0 (34.0-46.0) % MCV 88.4 (80.0-100.0) fL MCH 30.6 (25.0-35.0) pg MCHC 34.6 (31.0-37.0) g/dL RDW 13.3 (11.5-15.5) % Plt Count 401 (150-450) k/uL MPV 7.3 Neutrophils % 67 % Lymphocytes % 23 % Monocytes % 7 % Eosinophils % 1 % Basophils % 1 % Neutrophils # 8.4 H (1.3-7.7) k/uL Lymphocytes # 2.9 (1.0-4.8) k/uL Monocytes # 0.8 (0-1.0) k/uL Eosinophils # 0.1 (0-0.7) k/uL Basophils # 0.1 (0-0.2) k/uL PT 10.0 (9.0-12.0) sec INR 0.9 (<1.2) APTT 23.7 (22.0-30.0) sec Sodium 131 L (137-145) mmol/L Potassium 5.3 H (3.5-5.1) mmol/L Chloride 93 L (98-107) mmol/L Carbon Dioxide 26 (22-30) mmol/L Anion Gap 12 mmol/L BUN 19 H (7-17) mg/dL Creatinine 0.87 (0.52-1.04) mg/dL Est GFR (CKD-EPI)AfAm 69 (>60 ml/min/1.73 sqM) Est GFR (CKD-EPI)NonAf 60 (>60 ml/min/1.73 sqM) Glucose 141 H (74-99) mg/dL Plasma Lactic Acid [place] (0.7-2.0) mmol/L Calcium 9.7 (8.4-10.2) mg/dL Magnesium 1.7 (1.6-2.3) mg/dL Total Bilirubin 0.4 (0.2-1.3) mg/dL AST 24 (14-36) U/L ALT 19 (4-34) U/L Alkaline Phosphatase 149 H (38-126) U/L Troponin I (0.000-0.034) ng/mL NT-Pro-B Natriuret Pep pg/mL Total Protein 7.5 (6.3-8.2) g/dL Albumin 4.8 (3.5-5.0) g/dL 03/26/21 03/26/21 03/26/21 Range/Units 14:41 14:41 14:41 WBC (3.8-10.6) k/uL RBC (3.80-5.40) m/uL Hgb (11.4-16.0) gm/dL Hct (34.0-46.0) % MCV (80.0-100.0) fL MCH (25.0-35.0) pg MCHC (31.0-37.0) g/dL RDW (11.5-15.5) % Plt Count (150-450) k/uL MPV Neutrophils % % Lymphocytes % % Monocytes % % Eosinophils % % Basophils % % Neutrophils # (1.3-7.7) k/uL Lymphocytes # (1.0-4.8) k/uL Monocytes # (0-1.0) k/uL Eosinophils # (0-0.7) k/uL Basophils # (0-0.2) k/uL PT (9.0-12.0) sec INR (<1.2) APTT (22.0-30.0) sec Sodium (137-145) mmol/L Potassium (3.5-5.1) mmol/L Chloride (98-107) mmol/L Carbon Dioxide (22-30) mmol/L Anion Gap mmol/L BUN (7-17) mg/dL Creatinine (0.52-1.04) mg/dL Est GFR (CKD-EPI)AfAm (>60 ml/min/1.73 sqM) Est GFR (CKD-EPI)NonAf (>60 ml/min/1.73 sqM) Glucose (74-99) mg/dL Plasma Lactic Acid German 1.9 (0.7-2.0) mmol/L Calcium (8.4-10.2) mg/dL Magnesium (1.6-2.3) mg/dL Total Bilirubin (0.2-1.3) mg/dL AST (14-36) U/L ALT (4-34) U/L Alkaline Phosphatase (38-126) U/L Troponin I <0.012 (0.000-0.034) ng/mL NT-Pro-B Natriuret Pep 181 pg/mL Total Protein (6.3-8.2) g/dL Albumin (3.5-5.0) g/dL Disposition Clinical Impression: Community acquired pneumonia Disposition: ADMITTED IP TO THIS HOSP Referrals: Anthony Cameron MD [Primary Care Provider] - 1-2 days Time of Disposition: 15:26 Decision to Admit Reason: Admit from EC Decision Date: 03/26/21 Decision Time: 15:26
[2021-03-26 14:52] LABS: Basophils # (A) 0.1 k/uL (0-0.2); Basophils % (A) 1 %; Eosinophils # (A) 0.1 k/uL (0-0.7); Eosinophils % (A) 1 %; HGB 13.8 gm/dL (11.4-16.0); Lymphocytes # (A) 2.9 k/uL (1.0-4.8); Lymphocytes % (A) 23 %; MCH 30.6 pg (25.0-35.0); MCHC 34.6 g/dL (31.0-37.0); MCV 88.4 fL (80.0-100.0); Mean Platelet Volume 7.3; Monocytes # (A) 0.8 k/uL (0-1.0); Monocytes % (A) 7 %; Neutrophils # (A) 8.4 k/uL (1.3-7.7); Neutrophils % (A) 67 %; Platelet Count 401 k/uL (150-450); RBC 4.52 m/uL (3.80-5.40); RDW 13.3 % (11.5-15.5); WBC 12.6 k/uL (3.8-10.6)
[2021-03-26 15:00] LABS: INR 0.9 (<1.2); Partial Thromboplastin Time 23.7 sec (22.0-30.0)
[2021-03-26 15:01] LABS: Albumin 4.8 g/dL (3.5-5.0); Calcium 9.7 mg/dL (8.4-10.2); Magnesium 1.7 mg/dL (1.6-2.3); Potassium 5.3 mmol/L (3.5-5.1); Total Bilirubin 0.4 mg/dL (0.2-1.3); Total Protein 7.5 g/dL (6.3-8.2)
--- NOTE | 2021-03-26 15:07 | XR ---
EXAMINATION TYPE: XR chest 2V DATE OF EXAM: 03/26/2021 COMPARISON: 03/22/2021 HISTORY: Shortness of breath TECHNIQUE: Frontal and lateral views of the chest are obtained. FINDINGS: Scattered senescent parenchymal changes noted. Hyperinflation compatible with COPD. No evidence for infiltrate. No evidence for atelectasis. Heart size is stable. Mediastinal structures are stable and grossly unremarkable. No evidence for hilar prominence. Degenerative changes dorsal spine. IMPRESSION: 1. No evidence for acute pulmonary disease.
[2021-03-26] MEDS ORDERED: AZITHROMYCIN 500 MG in SODIUM CHLORIDE 0.9% 250 ML IVPB STA (15:16)
[2021-03-26] MEDS ORDERED: cefTRIAXone IN SWFI 1,000 MG/10 ML SYRINGE IVP STA (15:16)
[2021-03-26] MEDS ORDERED: ALBUTEROL NEBULIZED 2.5 MG/3 ML INHALATION STA (15:16)
[2021-03-26] MEDS ORDERED: NALOXONE 0.4 MG/ML 1 ML VIAL IV PRN (15:22)
[2021-03-26] MEDS ORDERED: ACET/COD 300 MG/30 MG STARTER PACK 6 TAB BTL PO PRN (18:32)
[2021-03-26] MEDS ORDERED: FAMOTIDINE 20 MG TAB PO SCH (21:00)
[2021-03-26 21:01] LABS: Glucose,Whole Blood 151 mg/dL (75-99)
[2021-03-26] MEDS: amLODIPine 5 MG TAB PO SCH (21:16)
[2021-03-26] MEDS: GABAPENTIN 100 MG CAP PO SCH (21:16)
[2021-03-26] MEDS: INSULIN ASPART (NovoLOG) 100 UNIT/ML VIAL SQ SCH (21:16)
[2021-03-26] MEDS: ASPIRIN 325 MG TAB PO SCH (21:16)
[2021-03-26] MEDS: METOPROLOL TARTRATE 25 MG TAB PO SCH (21:16)
[2021-03-26] MEDS: ALBUTEROL HFA INHALER INHALATION PRN (21:30)
[2021-03-26] MEDS: ALPRAZolam 0.25 MG TAB PO PRN (22:03)
--- NOTE | 2021-03-26 23:24 | P.HPIM ---
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 Patient was seen by her primary care physician and was started on antibiotics. Patient was referred to ER without improvement in breathing status. Patient was taken off her Lasix approximately 2 weeks ago and was reinstated earlier this week. Patient denied any complaints of chest pain or pleuritic chest pain. No fever. Patient states that she did have some chills. No nausea vomiting or abdominal pain or diarrhea. Chest x-ray showed no evidence for acute pulmonary disease. EKG showed sinus bradycardia. Laboratory data showed WBC 12.6, hemoglobin 13.8 and platelets 401, sodium 131 potassium 5.3 chloride 93 BUN 19 and creatinine 0.87 blood sugar 141 proBNP 181 and troponin 0 0.012 Review of Systems Constitutional: Patient denies any fever or chills . No generalized weakness or weight loss. Abdomen: Patient denied nausea vomiting and diarrhea and abdominal pain. Cardiovascular: Patient denies any chest pain or short of breath no palpitations. Respiratory: Patient does have cough with her sputum reduction and shortness of breath. Neurologic: Patient denied any numbness or tingling headache. Musculoskeletal: Patient denies any complaints of joint swelling or deformity. Skin: Negative Psychiatric: Negative Endocrine: No heat or cold intolerance. No recent weight gain. Genitourinary: No dysuria or hematuria. 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 Last Myocardial Infarction Date:: 09/2018 History of Any Multi-Drug Resistant Organisms: None Reported Past Surgical History: Back Surgery, Breast Surgery, Heart Catheterization With Stent, Hysterectomy, Orthopedic Surgery, Tubal Ligation Additional Past Surgical History / Comment(s): PCI with a total of 7 stents, low back surgery, L breast benign bx, R rotator cuff repair, R eye cataract removed, multiple bilateral laser eye surgeries, bilateral eye stents-R one fell out, thyroidectomy d/t nodules, temporal artery bx, cervical and lumbar injections. Past Anesthesia/Blood Transfusion Reactions: Previous Problems w/ Anesthesia Additional Past Anesthesia/Blood Transfusion Reaction / Comment(s): hard to wake up Date of Last Stent Placement:: 10/19/18 Past Psychological History: Anxiety Additional Psychological History / Comment(s): Pt has her son, Geoffrey residing with her. She is visually impaired, reads with a lighted magnifying screen. She signs her name occasionally. She is able to manage her own medications. Her sons take her to appts. She ambulates with a walker. Smoking Status: Never smoker Past Alcohol Use History: None Reported Past Drug Use History: None Reported - Past Family History Mother Family Medical History: Myocardial Infarction ([place]) Additional Family Medical History / Comment(s): MOTHER OF A [place] AT THE AGE OF 57YRS. Brother(s) Family Medical History: Myocardial Infarction ([place]) Additional Family Medical History / Comment(s): BROTHER OF A [place] AT THE AGE OF 60YRS. Father Family Medical History: No Reported History Additional Family Medical History / Comment(s): FATHER LIVED TO BE 90YRS OLD. Medications and Allergies Home Medications Medication Instructions Recorded Confirmed Type Cholecalciferol [Vitamin D3 (25 1,000 unit PO DAILY 05/03/16 03/26/21 History Mcg = 1000 Iu)] Vits A,C,E/Lutein/Minerals 2 tab PO DAILY 05/03/16 03/26/21 History [Ocuvite with Lutein Tablet] Levothyroxine Sodium [Synthroid] 88 mcg PO DAILY 05/31/17 03/26/21 History ALPRAZolam [Xanax] 0.25 mg PO DAILY PRN #30 06/05/17 03/26/21 Rx Glimepiride [Amaryl] 1 mg PO DAILY 04/28/18 03/26/21 History metFORMIN HCL [Glucophage] 500 mg PO BID 04/28/18 03/26/21 History Acetaminophen with Codeine 1 tab PO Q6H PRN 09/25/18 03/26/21 History [Tylenol w/codeine #3] amLODIPine [Norvasc] 5 mg PO BID #60 tab 10/21/18 03/26/21 Rx Furosemide [Lasix] 20 mg PO DAILY@1500 01/08/19 03/26/21 History Isosorbide Mononitrate ER [Imdur] 60 mg PO DAILY #30 tab.er.24h 01/09/19 03/26/21 Rx Famotidine [Pepcid] 20 mg PO BID #14 tablet 03/14/19 03/26/21 Rx Gabapentin [Neurontin] 100 mg PO HS 05/25/20 03/26/21 History Losartan [Cozaar] 100 mg PO DAILY 05/25/20 03/26/21 History Metoprolol Tartrate [Lopressor] 25 mg PO BID 05/25/20 03/26/21 History Clopidogrel [Plavix] 75 mg PO DAILY #30 tab 05/28/20 03/26/21 Rx Albuterol Inhaler [Ventolin Hfa 2 puff INHALATION RT-Q4H PRN 03/26/21 03/26/21 History Inhaler] Aspirin 325 mg PO HS 03/26/21 03/26/21 History Atorvastatin [Lipitor] 40 mg PO DAILY 03/26/21 03/26/21 History Azithromycin [Zithromax Z-pack (6 See Taper PO DAILY 03/26/21 03/26/21 History tabs)] Cefdinir [Omnicef] 300 mg PO Q12H 03/26/21 03/26/21 History Esomeprazole Magnesium [NexIUM 20 mg PO DAILY 03/26/21 03/26/21 History 24Hr] Fluticasone Nasal [place] [Flonase 2 spr EA NOSTRIL DAILY 03/26/21 03/26/21 History Nasal [place]] Furosemide [Lasix] 40 mg PO DAILY 03/26/21 03/26/21 History Allergies Allergy/AdvReac Type Severity Reaction Status Date / Time PAPER TAPE Allergy Unknown Rash/Hives Uncoded 03/26/21 14:10 Physical Exam Vitals: Vital Signs Temp Pulse Resp BP Pulse Ox 03/26/21 16:06 60 03/26/21 15:55 62 03/26/21 15:47 65 18 123/60 99 03/26/21 14:06 98.9 F 64 22 123/71 98 Intake and Output 03/26/21 03/26/21 03/26/21 06:59 14:59 22:59 Other: # Voids 1 Weight 72.121 kg 72.121 kg PHYSICAL EXAMINATION: Patient is lying in the bed comfortably, no acute distress, awake alert and oriented.. HEENT: Normocephalic. Neck is supple. Pupils reactive. Nostrils clear. Oral cavity is moist. Neck reveals no JVD, carotid bruits, or thyromegaly. CHEST EXAMINATION: Trachea is central. Symmetrical expansion. Bibasilar diminished sounds and scattered crackles.. CARDIAC: Normal S1, S2 with no gallops. No murmurs ABDOMEN: Soft. Bowel sounds normal. No organomegaly. No abdominal bruits. Extremities: reveal no edema. No clubbing or cyanosis Neurologically awake, alert, oriented x3 with well-coordinated movements. No gross focal deficits noted Skin: No rash or skin lesions. Psychiatric: Coperative. Nonsuicidal Musculoskeletal: No joint swelling or deformity. Normal range of motion. Results CBC & Chem 7: 03/26/21 14:41 03/26/21 14:41 Labs: Abnormal Lab Results - Last 24 Hours (Table) 03/26/21 03/26/21 Range/Units 14:41 14:41 WBC 12.6 H (3.8-10.6) k/uL Neutrophils # 8.4 H (1.3-7.7) k/uL Sodium 131 L (137-145) mmol/L Potassium 5.3 H (3.5-5.1) mmol/L Chloride 93 L (98-107) mmol/L BUN 19 H (7-17) mg/dL Glucose 141 H (74-99) mg/dL Alkaline Phosphatase 149 H (38-126) U/L Thrombosis Risk Factor Assmnt - DVT/VTE Prophylaxis DVT/VTE Prophylaxis: Pharmacologic Prophylaxis ordered - Choose All That Apply Each Factor Represents 1 point: Obesity (BMI >25), Serious lung disease incl. pneumonia (< 1month) Other Risk Factors: Yes Each Risk Factor Represents 3 Points: Age 75 years or older Thrombosis Risk Factor Assessment Total Risk Factor Score: 5 Thrombosis Risk Factor Assessment Level: High Risk Assessment and Plan Assessment: Community-acquired pneumonia. Failed outpatient antibiotic therapy. Coronary arteries with history of stent placement x7 Diabetes type 2 [id number]-nvtrtbpyo GERD Hearing disorder/deafness History of CVA with left eye blindness Hypothyroidism History of [place] Arthritis in bilateral hands. Anxiety Central spinal stenosis and lumbar multilevel degenerative disc disease DVT prophylaxis with heparin subcu Plan: Patient will be continued on antibiotics involve ceftriaxone and azithromycin. Follow-up culture report. Urinalysis was ordered. Continue with home blood pressure medications and GI, DVT prophylaxis. Discussed with the patient and her son at bedside in detail. Time with Patient: Greater than 30
[2021-03-27] MEDS: HEPARIN SODIUM,PORCINE/PF 5,000 UNIT/0.5 ML SYRINGE SQ SCH ×4 (01:05→22:19)
[2021-03-27 02:40] LABS: Appearance,Urine Clear (Clear); Bilirubin,Urine Negative (Negative); Blood,Urine Negative (Negative); Color,Urine Light Yellow; Glucose,Urine (UA) Negative (Negative); Ketones,Urine Negative (Negative); Leukocyte Esterase,Urine Negative (Negative); Nitrite,Urine Negative (Negative); PH, Urine 6.5 (5.0-8.0); Protein,Urine Negative (Negative); Specific Gravity,Urine 1.007 (1.001-1.035); Urobilinogen,Urine <2.0 mg/dL (<2.0)
[2021-03-27] MEDS: LEVOTHYROXINE 88 MCG TAB PO SCH (06:05)
[2021-03-27 07:22] LABS: Glucose,Whole Blood 128 mg/dL (75-99)
[2021-03-27] MEDS: INSULIN ASPART (NovoLOG) 100 UNIT/ML VIAL SQ SCH ×4 (07:26→22:22)
[2021-03-27] MEDS: PANTOPRAZOLE 40 MG TABLET PO SCH (09:49)
[2021-03-27] MEDS: CLOPIDOGREL 75 MG TAB PO SCH (09:49)
[2021-03-27] MEDS: ISOSORBIDE MONONITRATE ER 60 MG TAB.ER.24H PO SCH (09:49)
[2021-03-27] MEDS: LOSARTAN 50 MG TAB PO SCH (09:49)
[2021-03-27] MEDS: FUROSEMIDE 20 MG TAB PO SCH ×2 (09:49→16:25)
[2021-03-27] MEDS: amLODIPine 5 MG TAB PO SCH ×2 (09:49→22:19)
[2021-03-27] MEDS: ATORVASTATIN 40 MG TAB PO SCH (09:49)
[2021-03-27] MEDS: CHOLECALCIFEROL 25 MCG (1000 IU) TABLET PO SCH (09:49)
[2021-03-27] MEDS: FLUTICASONE 50MCG/SPRAY NASAL 16GM EA NOSTRIL SCH (09:50)
[2021-03-27] MEDS: AZITHROMYCIN 500 MG TAB PO SCH (09:50)
[2021-03-27] MEDS: GLIMEPIRIDE 1 MG TAB PO SCH (09:50)
[2021-03-27] MEDS: VIT A,C & E-LUTEIN-MINERALS 1 EACH TAB PO SCH (09:50)
[2021-03-27] MEDS: METOPROLOL TARTRATE 25 MG TAB PO SCH ×2 (10:46→22:20)
[2021-03-27 11:37] LABS: Basophils # (A) 0.1 k/uL (0-0.2); Basophils % (A) 1 %; Eosinophils # (A) 0.1 k/uL (0-0.7); Eosinophils % (A) 2 %; HCT 38.1 % (34.0-46.0); HGB 13.2 gm/dL (11.4-16.0); Lymphocytes % (A) 27 %; MCH 31.5 pg (25.0-35.0); MCHC 34.6 g/dL (31.0-37.0); MCV 91.2 fL (80.0-100.0); Mean Platelet Volume 7.3; Monocytes # (A) 0.4 k/uL (0-1.0); Monocytes % (A) 5 %; Neutrophils # (A) 4.7 k/uL (1.3-7.7); Neutrophils % (A) 63 %; Platelet Count 339 k/uL (150-450); RBC 4.18 m/uL (3.80-5.40); RDW 13.5 % (11.5-15.5); WBC 7.4 k/uL (3.8-10.6)
[2021-03-27 11:38] LABS: Glucose,Whole Blood 207 mg/dL (75-99)
[2021-03-27 11:46] LABS: African American GFR (CKD) 80 (>60 ml/min/1.73 sqM); Anion Gap 10 mmol/L; Blood Urea Nitrogen 18 mg/dL (7-17); Carbon Dioxide 28 mmol/L (22-30); Chloride 92 mmol/L (98-107); Glucose 242 mg/dL (74-99); Non-African American GFR(CKD) 70 (>60 ml/min/1.73 sqM); Potassium 4.2 mmol/L (3.5-5.1); Sodium 130 mmol/L (137-145)
[2021-03-27 16:18] LABS: Glucose,Whole Blood 90 mg/dL (75-99)
[2021-03-27 21:43] LABS: Glucose,Whole Blood 217 mg/dL (75-99)
[2021-03-27] MEDS: ASPIRIN 325 MG TAB PO SCH (22:19)
[2021-03-27] MEDS: ALPRAZolam 0.25 MG TAB PO PRN (22:19)
[2021-03-27] MEDS: ACETAMINOPHEN TAB 325 MG TAB PO PRN (22:20)
[2021-03-27] MEDS: GABAPENTIN 100 MG CAP PO SCH (22:21)
[2021-03-28] MEDS: LEVOTHYROXINE 88 MCG TAB PO SCH (06:03)
[2021-03-28 07:19] LABS: Glucose,Whole Blood 139 mg/dL (75-99)
[2021-03-28] MEDS: INSULIN ASPART (NovoLOG) 100 UNIT/ML VIAL SQ SCH ×4 (07:37→21:29)
[2021-03-28] MEDS: METOPROLOL TARTRATE 25 MG TAB PO SCH ×2 (08:14→21:30)
[2021-03-28] MEDS: ATORVASTATIN 40 MG TAB PO SCH (08:22)
[2021-03-28] MEDS: HEPARIN SODIUM,PORCINE/PF 5,000 UNIT/0.5 ML SYRINGE SQ SCH ×3 (08:22→21:31)
[2021-03-28] MEDS: CHOLECALCIFEROL 25 MCG (1000 IU) TABLET PO SCH (08:22)
[2021-03-28] MEDS: amLODIPine 5 MG TAB PO SCH ×2 (08:22→21:30)
[2021-03-28] MEDS: PANTOPRAZOLE 40 MG TABLET PO SCH (08:22)
[2021-03-28] MEDS: CLOPIDOGREL 75 MG TAB PO SCH (08:22)
[2021-03-28] MEDS: LOSARTAN 50 MG TAB PO SCH (08:22)
[2021-03-28] MEDS: ISOSORBIDE MONONITRATE ER 60 MG TAB.ER.24H PO SCH (08:22)
[2021-03-28] MEDS: FUROSEMIDE 20 MG TAB PO SCH ×2 (08:22→13:14)
[2021-03-28] MEDS: FLUTICASONE 50MCG/SPRAY NASAL 16GM EA NOSTRIL SCH (08:25)
[2021-03-28] MEDS: GLIMEPIRIDE 1 MG TAB PO SCH (08:26)
[2021-03-28] MEDS: AZITHROMYCIN 500 MG TAB PO SCH (08:26)
[2021-03-28] MEDS: VIT A,C & E-LUTEIN-MINERALS 1 EACH TAB PO SCH (08:26)
[2021-03-28 10:19] LABS: Basophils # (A) 0.07 X 10*3/uL (0.00-0.10); Basophils % (A) 0.7 %; Eosinophils # (A) 0.18 X 10*3/uL (0.04-0.35); Eosinophils % (A) 1.8 %; HCT 40.3 % (37.2-46.3); HGB 13.5 g/dL (12.0-15.0); Lymphocytes # (A) 3.16 X 10*3/uL (0.90-5.00); MCH 29.9 pg (27.0-32.0); MCHC 33.5 g/dL (32.0-37.0); MCV 89.2 fL (80.0-97.0); Monocytes # (A) 0.96 X 10*3/uL (0.20-1.00); Monocytes % (A) 9.4 %; Neutrophils % (A) 55.9 %; Platelet Count 399 X 10*3/uL (140-440); RBC 4.52 X 10*6/uL (4.10-5.20); RDW 13.1 % (11.5-14.5); WBC 10.19 X 10*3/uL (4.50-10.00)
[2021-03-28 10:22] LABS: African American GFR (CKD) 66.6 (60.0-200.0); Anion Gap 11.1 mmol/L (4.00-12.00); BUN/Creat Ratio 34.44 Ratio (12.00-20.00); Calcium 9.5 mg/dL (8.7-10.3); Carbon Dioxide 28.9 mmol/L (21.6-31.8); Non-African American GFR(CKD) 57.5 (60.0-200.0); Potassium 4.3 mmol/L (3.5-5.5)
[2021-03-28 11:41] LABS: Glucose,Whole Blood 120 mg/dL (75-99)
[2021-03-28 16:48] LABS: Glucose,Whole Blood 144 mg/dL (75-99)
[2021-03-28 21:12] LABS: Glucose,Whole Blood 193 mg/dL (75-99)
[2021-03-28] MEDS: ASPIRIN 325 MG TAB PO SCH (21:30)
[2021-03-28] MEDS: ACETAMINOPHEN TAB 325 MG TAB PO PRN (21:30)
[2021-03-28] MEDS: GABAPENTIN 100 MG CAP PO SCH (21:30)
[2021-03-28] MEDS: ALPRAZolam 0.25 MG TAB PO PRN (21:31)
--- NOTE | 2021-03-28 23:48 | P.PN ---
Subjective Progress Note Date: 03/27/21 Principal diagnosis: Pneumonia exertional short of breath. 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 Patient was seen by her primary care physician and was started on antibiotics. Patient was referred to ER without improvement in breathing status. Patient was taken off her Lasix approximately 2 weeks ago and was reinstated earlier this week. Patient denied any complaints of chest pain or pleuritic chest pain. No fever. Patient states that she did have some chills. No nausea vomiting or abdominal pain or diarrhea. Chest x-ray showed no evidence for acute pulmonary disease. EKG showed sinus bradycardia. Laboratory data showed WBC 12.6, hemoglobin 13.8 and platelets 401, sodium 131 potassium 5.3 chloride 93 BUN 19 and creatinine 0.87 blood sugar 141 proBNP 181 and troponin 0 0.012 03/27/2021 Patient is currently walking to the bathroom with a walker. Complains of shortness of breath. No chest pain. No nausea vomiting. Patient did not have any involvement today. No nausea vomiting. Tolerating oral diet. Patient has been afebrile. Not tachycardic or hypoxic. Laboratory data showed WBC 7.4 hemoglobin 13.1 platelets 339 Sodium 130 potassium 4.2 chloride 92 BUN 18 and creatinine 0.77 and blood sugar is 242 this morning. Patient is being continued on antibiotics in the form of ceftriaxone and azithromycin. Current medications reviewed. Objective - Vital Signs Vital signs: Vital Signs Temp 97.8 F 03/27/21 13:58 Pulse 61 03/27/21 20:00 Resp 16 03/27/21 20:00 BP 118/65 03/27/21 13:58 Pulse Ox 96 03/27/21 16:22 Intake & Output 03/27/21 03/27/21 03/28/21 06:59 18:59 06:59 Output Total 300 300 Balance -300 -300 Output: Urine 300 300 Other: Voiding Method Toilet Toilet # Voids 1 5 5 - Exam PHYSICAL EXAMINATION: Patient is lying in the bed comfortably, no acute distress, awake alert and oriented.. HEENT: Normocephalic. Neck is supple. Pupils reactive. Nostrils clear. Oral cavity is moist. Neck reveals no JVD, carotid bruits, or thyromegaly. CHEST EXAMINATION: Trachea is central. Symmetrical expansion. Bibasilar diminished sounds and no wheeze.. CARDIAC: Normal S1, S2 with no gallops. No murmurs ABDOMEN: Soft. Bowel sounds normal. No organomegaly. No abdominal bruits. Extremities: reveal no edema. No clubbing or cyanosis Neurologically awake, alert, oriented x3 with well-coordinated movements. No gross focal deficits noted Skin: No rash or skin lesions. Psychiatric: Coperative. Nonsuicidal Musculoskeletal: No joint swelling or deformity. Normal range of motion. - Labs CBC & Chem 7: 03/28/21 06:28 03/28/21 06:28 Labs: Abnormal Lab Results - Last 24 Hours (Table) 03/27/21 03/27/21 03/27/21 Range/Units 07:04 11:00 11:33 Sodium 130 L (137-145) mmol/L Chloride 92 L (98-107) mmol/L BUN 18 H (7-17) mg/dL Glucose 242 H (74-99) mg/dL POC Glucose (mg/dL) 128 H 207 H (75-99) mg/dL 03/27/21 Range/Units 21:41 Sodium (137-145) mmol/L Chloride (98-107) mmol/L BUN (7-17) mg/dL Glucose (74-99) mg/dL POC Glucose (mg/dL) 217 H (75-99) mg/dL Microbiology - Last 24 Hours (Table) 03/26/21 15:24 Blood Culture - Preliminary Blood No Growth after 24 hours 03/26/21 15:24 Blood Culture - Preliminary Blood No Growth after 24 hours Assessment and Plan Assessment: Community-acquired pneumonia. Failed outpatient antibiotic therapy. Coronary arteries with history of stent placement x7 Diabetes type 2 hyx-[id number]-vxsbgfutv GERD Hearing disorder/deafness History of CVA with left eye blindness Hypothyroidism History of [place] Arthritis in bilateral hands. Anxiety Central spinal stenosis and lumbar multilevel degenerative disc disease DVT prophylaxis with heparin subcu Plan: Patient will be continued on antibiotics involve ceftriaxone and azithromycin. Follow-up culture report. Urinalysis negative. Continue with home blood pressure medications and GI, DVT prophylaxis. Discussed with the patient and her son at bedside in detail. Time with Patient: Greater than 30
--- NOTE | 2021-03-28 23:50 | P.PN ---
Subjective Progress Note Date: 03/28/21 Principal diagnosis: Pneumonia exertional short of breath. 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 Patient was seen by her primary care physician and was started on antibiotics. Patient was referred to ER without improvement in breathing status. Patient was taken off her Lasix approximately 2 weeks ago and was reinstated earlier this week. Patient denied any complaints of chest pain or pleuritic chest pain. No fever. Patient states that she did have some chills. No nausea vomiting or abdominal pain or diarrhea. Chest x-ray showed no evidence for acute pulmonary disease. EKG showed sinus bradycardia. Laboratory data showed WBC 12.6, hemoglobin 13.8 and platelets 401, sodium 131 potassium 5.3 chloride 93 BUN 19 and creatinine 0.87 blood sugar 141 proBNP 181 and troponin 0 0.012 03/27/2021 Patient is currently walking to the bathroom with a walker. Complains of shortness of breath. No chest pain. No nausea vomiting. Patient did not have any involvement today. No nausea vomiting. Tolerating oral diet. Patient has been afebrile. Not tachycardic or hypoxic. Laboratory data showed WBC 7.4 hemoglobin 13.1 platelets 339 Sodium 130 potassium 4.2 chloride 92 BUN 18 and creatinine 0.77 and blood sugar is 242 this morning. Patient is being continued on antibiotics in the form of ceftriaxone and azithromycin. 03/28/2021 Patient is sitting in the chair. Awake alert oriented x3. Patient is complaining of tightness in the chest with walking. No complaints of nausea or vomiting. No diarrhea. Blood pressure 156/78 this morning with pulse 56 respirations 16 and pulse ox 95% on room air. Patient is being current on antibiotics. Currently on aspirin Plavix statins metoprolol and Lasix as well as losartan. Cardiology was consulted due to exertional dyspnea and further evaluation with extensive history of CAD. Current medications reviewed. Objective - Vital Signs Vital signs: Vital Signs Temp 97.5 F L 03/28/21 14:00 Pulse 69 08/01/21 14:00 Resp 16 03/28/21 14:00 BP 115/64 03/28/21 14:00 Pulse Ox 97 03/28/21 15:11 Intake & Output 03/28/21 03/28/21 03/29/21 06:59 18:59 06:59 Intake Total 100 Output Total 300 Balance -200 Intake: Intake, IV Titration 100 Amount cefTRIAXone 1 gm In 100 Sodium Chloride 0.9% 50 ml @ 100 mls/hr IVPB Q24H [facility] Rx#:[id number] Output: Urine 300 Other: Voiding Method Toilet # Voids 0 15 # Bowel Movements 4 - Exam PHYSICAL EXAMINATION: Patient is lying in the bed comfortably, no acute distress, awake alert and oriented.. HEENT: Normocephalic. Neck is supple. Pupils reactive. Nostrils clear. Oral cavity is moist. Neck reveals no JVD, carotid bruits, or thyromegaly. CHEST EXAMINATION: Trachea is central. Symmetrical expansion. Bibasilar diminished sounds and no wheeze.. CARDIAC: Normal S1, S2 with no gallops. No murmurs ABDOMEN: Soft. Bowel sounds normal. No organomegaly. No abdominal bruits. Extremities: reveal no edema. No clubbing or cyanosis Neurologically awake, alert, oriented x3 with well-coordinated movements. No gross focal deficits noted Skin: No rash or skin lesions. Psychiatric: Coperative. Nonsuicidal Musculoskeletal: No joint swelling or deformity. Normal range of motion. - Labs CBC & Chem 7: 03/28/21 06:28 03/28/21 06:28 Labs: Abnormal Lab Results - Last 24 Hours (Table) 03/28/21 03/28/21 03/28/21 Range/Units 06:28 06:28 07:17 WBC 10.19 H (4.50-10.00) X 10*3/uL Immature Gran # 0.12 H (0.00-0.04) X 10*3/uL Sodium 133 L (135-145) mmol/L Chloride 93 L (96-109) mmol/L BUN 31.0 H (9.0-27.0) mg/dL Est GFR (CKD-EPI)NonAf 57.5 L (60.0-200.0) BUN/Creatinine Ratio 34.44 H (12.00-20.00) Ratio Glucose 149 H (70-110) mg/dL POC Glucose (mg/dL) 139 H (75-99) mg/dL 03/28/21 03/28/21 03/28/21 Range/Units 11:39 16:47 21:07 WBC (4.50-10.00) X 10*3/uL Immature Gran # (0.00-0.04) X 10*3/uL Sodium (135-145) mmol/L Chloride (96-109) mmol/L BUN (9.0-27.0) mg/dL Est GFR (CKD-EPI)NonAf (60.0-200.0) BUN/Creatinine Ratio (12.00-20.00) Ratio Glucose (70-110) mg/dL POC Glucose (mg/dL) 120 H 144 H 193 H (75-99) mg/dL Microbiology - Last 24 Hours (Table) 03/26/21 15:24 Blood Culture - Preliminary Blood No Growth after 48 hours 03/26/21 15:24 Blood Culture - Preliminary Blood No Growth after 48 hours Assessment and Plan Assessment: Community-acquired pneumonia. Failed outpatient antibiotic therapy. Exertional dyspnea. Coronary arteries with history of stent placement x7 Diabetes type 2 [id number] GERD Hearing disorder/deafness History of CVA with left eye blindness Hypothyroidism History of [place] Arthritis in bilateral hands. Anxiety Central spinal stenosis and lumbar multilevel degenerative disc disease DVT prophylaxis with heparin subcu Plan: Patient will be continued on antibiotics involve ceftriaxone and azithromycin. Follow-up culture report. Urinalysis negative. Continue with home blood pressure medications and GI, DVT prophylaxis. Discussed with the patient and her son at bedside in detail. Time with Patient: Greater than 30
[2021-03-29] MEDS: LEVOTHYROXINE 88 MCG TAB PO SCH (06:08)
[2021-03-29 07:18] LABS: Glucose,Whole Blood 150 mg/dL (75-99)
--- NOTE | 2021-03-29 07:27 | XR ---
EXAMINATION TYPE: XR chest 1V DATE OF EXAM: 03/29/2021 COMPARISON: 03/26/2021 HISTORY: 85-year-old female pneumonia TECHNIQUE: Single frontal view of the chest is obtained. FINDINGS: Heart upper limits of normal in size. Hyperinflation. Pulmonary vasculature within normal limits. Inc reased patchy peripheral left basilar opacity. No pleural effusion. IMPRESSION: COPD. Increased patchy atelectasis versus developing infiltrate at the left base.
[2021-03-29 09:01] LABS: Basophils % (A) 0.7 %; Eosinophils % (A) 1.6 %; HCT 37.8 % (37.2-46.3); Lymphocytes % (A) 29.1 %; MCH 30.5 pg (27.0-32.0); MCHC 34.4 g/dL (32.0-37.0); MCV 88.7 fL (80.0-97.0); Monocytes % (A) 8.4 %; Neutrophils # (A) 6.12 X 10*3/uL (1.80-7.70); Neutrophils % (A) 59.2 %; Platelet Count 367 X 10*3/uL (140-440); RBC 4.26 X 10*6/uL (4.10-5.20); RDW 13.2 % (11.5-14.5); WBC 10.32 X 10*3/uL (4.50-10.00)
[2021-03-29 09:02] LABS: Basophils # (A) 0.07 X 10*3/uL (0.00-0.10); Eosinophils # (A) 0.16 X 10*3/uL (0.04-0.35); Monocytes # (A) 0.87 X 10*3/uL (0.20-1.00)
[2021-03-29] MEDS: ISOSORBIDE MONONITRATE ER 60 MG TAB.ER.24H PO SCH (09:30)
[2021-03-29] MEDS: amLODIPine 5 MG TAB PO SCH ×2 (09:31→23:14)
[2021-03-29] MEDS: PANTOPRAZOLE 40 MG TABLET PO SCH (09:31)
[2021-03-29] MEDS: METOPROLOL TARTRATE 25 MG TAB PO SCH ×2 (09:31→23:13)
[2021-03-29] MEDS: ATORVASTATIN 40 MG TAB PO SCH (09:31)
[2021-03-29] MEDS: CHOLECALCIFEROL 25 MCG (1000 IU) TABLET PO SCH (09:31)
[2021-03-29] MEDS: VIT A,C & E-LUTEIN-MINERALS 1 EACH TAB PO SCH (09:31)
[2021-03-29] MEDS: AZITHROMYCIN 500 MG TAB PO SCH (09:31)
[2021-03-29] MEDS: GLIMEPIRIDE 1 MG TAB PO SCH (09:31)
[2021-03-29] MEDS: LOSARTAN 50 MG TAB PO SCH (09:32)
[2021-03-29] MEDS: INSULIN ASPART (NovoLOG) 100 UNIT/ML VIAL SQ SCH ×4 (09:32→23:14)
[2021-03-29] MEDS: HEPARIN SODIUM,PORCINE/PF 5,000 UNIT/0.5 ML SYRINGE SQ SCH ×3 (09:32→23:13)
[2021-03-29] MEDS: CLOPIDOGREL 75 MG TAB PO SCH (09:32)
[2021-03-29] MEDS: FLUTICASONE 50MCG/SPRAY NASAL 16GM EA NOSTRIL SCH (09:32)
[2021-03-29] MEDS: FUROSEMIDE 20 MG TAB PO SCH (09:33)
[2021-03-29 09:35] LABS: African American GFR (CKD) 66.6 (60.0-200.0); Anion Gap 13.4 mmol/L (4.00-12.00); BUN/Creat Ratio 35.56 Ratio (12.00-20.00); Calcium 8.4 mg/dL (8.7-10.3); Carbon Dioxide 24.6 mmol/L (21.6-31.8); Non-African American GFR(CKD) 57.5 (60.0-200.0); Potassium 4.1 mmol/L (3.5-5.5)
[2021-03-29 12:01] LABS: Glucose,Whole Blood 80 mg/dL (75-99)
--- NOTE | 2021-03-29 12:25 | P.CRDCN ---
History of Present Illness Consult date: 03/29/21 History of present illness: HISTORY OF PRESENT ILLNESS: This is a 85-year-old female with a past medical history significant for coronary artery disease with previous stenting, hypertension, hyperlipidemia, diabetes mellitus, carotid stenosis, and CVA. Patient follows in the office with Dr. Silva. We have been asked to see the patient in consultation for chest pain. Patient examined at the bedside. She is admitted to the hospital with pneumonia. Patient states over the past two weeks she has not been feeling well. She reports shortness of breath. She reports having a cough with sputum production which has since improved. She reports occasional chest pressure since she has not been feeling well recently. She also reports shortness of breath with exertion. She denies shortness of breath at rest. EKG reveals sinus mechanism with right bundle branch block. Chest xray COPD. Increased patchy atelectasis versus developing infiltrate at the left base. Laboratory data: WBC 10.32. Hemoglobin 13.0. Platelet count 367. Sodium 134. Potassium 4.1. BUN 32. Creatinine 0.90. Current home cardiac medications include amlodipine 5 mg twice a day, metoprolol tartrate 25 mg twice a day, losartan 100 mg daily, Imdur 60 mg daily, Lasix 40 m g in the morning and 20 mg in the afternoon, Plavix 75 mg daily, Lipitor 40 mg daily, aspirin 325 mg at night Most recent echocardiogram obtained in April 2020 revealed ejection fraction 50-55%. Mild mitral regurgitation. Mild tricuspid regurgitation. Cardiac catheterization history: September 2018 with stenting to the circumflex. Patient underwent cardiac catheterization again in October 2018 revealing patent stent to the circumflex and LAD. REVIEW OF SYSTEMS: At the time of my exam: CONSTITUTIONAL: Denies fever or chills. HEENT: Denies blurred vision, vision changes, or eye pain. Denies hemoptysis CARDIOVASCULAR: Denies chest pain. Denies orthopnea. Denies PND. Denies palpitations RESPIRATORY: Reports exertional shortness of breath. GASTROINTESTINAL: Denies abdominal pain. Denies nausea or vomiting. HEMATOLOGIC: Denies bleeding disorders. GENITOURINARY: Denies any blood in urine. SKIN: Denies pruitis. Denies rash. PHYSICAL EXAM: VITAL SIGNS: Reviewed. GENERAL: Well-developed in no acute distress. HEENT: Head is normocephalic. Pupils are equal, round. Sclerae anicteric. Mucous membranes of the mouth are moist. Neck supple. No JVD or thyromegaly LUNGS: Respirations even and unlabored. Lungs diminished bilaterally. HEART: Regular rate and rhythm. S1 and S2 heard. ABDOMEN: Soft. Nondistended. Nontender. EXTREMITIES: Normal range of motion. No clubbing or cyanosis. Peripheral pulses intact. No lower extremity edema NEUROLOGIC: Awake and alert. Oriented x 3. ASSESSMENT: Pneumonia Exertional dyspnea, likely secondary to above Coronary artery disease with previous stenting Hypertension Hyperlipidemia Diabetes mellitus Carotid stenosis History of CVA PLAN: An acute coronary event has been ruled out Patients SOB likely related to pneumonia Obtain 2D echo to assess cardiac structure and function Continue home cardiac medications Patient may follow up with Dr. Silva outpatient Nurse practitioner note has been reviewed by physician. Signing provider agrees with the documented findings, assessment, and plan of care. Past Medical History Past Medical History: Coronary Artery Disease (CAD), CVA/TIA, Diabetes Mellitus, Eye Disorder, GERD/Reflux, Hearing Disorder / Deafness, Hyperlipidemia, Hyp ertension, Myocardial Infarction ([place]), Osteoarthritis (OA), Thyroid Disorder Additional Past Medical History / Comment(s): EPISODES OF ANGIOEDEMA, NIDDM TYPE II, 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 Last Myocardial Infarction Date:: 09/2018 History of Any Multi-Drug Resistant Organisms: None Reported Past Surgical History: Back Surgery, Breast Surgery, Heart Catheterization With Stent, Hysterectomy, Orthopedic Surgery, Tubal Ligation Additional Past Surgical History / Comment(s): PCI with a total of 7 stents, low back surgery, L breast benign bx, R rotator cuff repair, R eye cataract removed, multiple bilateral laser eye surgeries, bilateral eye stents-R one fell out, thyroidectomy d/t nodules, temporal artery bx, cervical and lumbar injections. Past Anesthesia/Blood Transfusion Reactions: Previous Problems w/ Anesthesia Additional Past Anesthesia/Blood Transfusion Reaction / Comment(s): hard to wake up Date of Last Stent Placement:: 10/19/18 Past Psychological History: Anxiety Additional Psychological History / Comment(s): Pt has her son, Geoffrey residing with her. She is visually impaired, reads with a lighted magnifying screen. She signs her name occasionally. She is able to manage her own medications. Her sons take her to [employer]. She ambulates with a walker. Smoking Status: Never smoker Past Alcohol Use History: None Reported Past Drug Use History: None Reported - Past Family History Mother Family Medical History: Myocardial Infarction ([place]) Additional Family Medical History / Comment(s): MOTHER OF A [place] AT THE AGE OF 57YRS. Brother(s) Family Medical History: Myocardial Infarction ([place]) Additional Family Medical History / Comment(s): BROTHER OF A [place] AT THE AGE OF 60YRS. Father Family Medical History: No Reported History Additional Family Medical History / Comment(s): FATHER LIVED TO BE 90YRS OLD. Medications and Allergies Home Medications Medication Instructions Recorded Confirmed Type Cholecalciferol [Vitamin D3 (25 1,000 unit PO DAILY 05/03/16 03/26/21 History Mcg = 1000 Iu)] Vits A,C,E/Lutein/Minerals 2 tab PO DAILY 05/03/16 03/26/21 History [Ocuvite with Lutein Tablet] Levothyroxine Sodium [Synthroid] 88 mcg PO DAILY 05/31/17 03/26/21 History ALPRAZolam [Xanax] 0.25 mg PO DAILY PRN #30 06/05/17 03/26/21 Rx Glimepiride [Amaryl] 1 mg PO DAILY 04/28/18 03/26/21 History metFORMIN HCL [Glucophage] 500 mg PO BID 04/28/18 03/26/21 History Acetaminophen with Codeine 1 tab PO Q6H PRN 09/25/18 03/26/21 History [Tylenol w/codeine #3] amLODIPine [Norvasc] 5 mg PO BID #60 tab 10/21/18 03/26/21 Rx Furosemide [Lasix] 20 mg PO DAILY@1500 01/08/19 03/26/21 History Isosorbide Mononitrate ER [Imdur] 60 mg PO DAILY #30 tab.er.24h 01/09/19 03/26/21 Rx Famotidine [Pepcid] 20 mg PO BID #14 tablet 03/14/19 03/26/21 Rx Gabapentin [Neurontin] 100 mg PO HS 05/25/20 03/26/21 History Losartan [Cozaar] 100 mg PO DAILY 05/25/20 03/26/21 History Metoprolol Tartrate [Lopressor] 25 mg PO BID 05/25/20 03/26/21 History Clopidogrel [Plavix] 75 mg PO DAILY #30 tab 05/28/20 03/26/21 Rx Albuterol Inhaler [Ventolin Hfa 2 puff INHALATION RT-Q4H PRN 03/26/21 03/26/21 History Inhaler] Aspirin 325 mg PO HS 03/26/21 03/26/21 History Atorvastatin [Lipitor] 40 mg PO DAILY 03/26/21 03/26/21 History Azithromycin [Zithromax Z-pack (6 See Taper PO DAILY 03/26/21 03/26/21 History tabs)] Cefdinir [Omnicef] 300 mg PO Q12H 03/26/21 03/26/21 History Esomeprazole Magnesium [NexIUM 20 mg PO DAILY 03/26/21 03/26/21 History 24Hr] Fluticasone Nasal [place] [Flonase 2 spr EA NOSTRIL DAILY 03/26/21 03/26/21 History Nasal [place]] Furosemide [Lasix] 40 mg PO DAILY 03/26/21 03/26/21 History Allergies Allergy/AdvReac Type Severity Reaction Status Date / Time PAPER TAPE Allergy Unknown Rash/Hives Uncoded 03/26/21 14:10 Physical Exam Vitals: Vital Signs Temp Pulse Resp BP Pulse Ox 03/29/21 08:00 97.6 F 69 18 134/70 95 03/29/21 02:00 98.2 F 55 L 19 117/59 97 03/28/21 20:00 55 L 19 03/28/21 15:11 97 03/28/21 14:00 97.5 F L 69 16 115/64 97 Intake and Output 03/28/21 03/29/21 03/29/21 22:59 06:59 14:59 Intake Total 50 Balance 50 Intake: Intake, IV Titration 50 Amount cefTRIAXone 1 gm In 50 Sodium Chloride 0.9% 50 ml @ 100 mls/hr IVPB Q24H [facility] Rx#:[id number] Other: Voiding Method Toilet Toilet # Voids 15 # Bowel Movements 4 Results 03/29/21 05:30 03/29/21 05:30 CBC 03/29/21 Range/Units 05:30 WBC 10.32 H (4.50-10.00) X 10*3/uL RBC 4.26 (4.10-5.20) X 10*6/uL Hgb 13.0 (12.0-15.0) g/dL Hct 37.8 (37.2-46.3) % Plt Count 367 (140-440) X 10*3/uL Comprehensive Metabolic Panel 03/29/21 Range/Units 05:30 Sodium 134 L (135-145) mmol/L Potassium 4.1 (3.5-5.5) mmol/L Chloride 96 (96-109) mmol/L Carbon Dioxide 24.6 (21.6-31.8) mmol/L BUN 32.0 H (9.0-27.0) mg/dL Creatinine 0.9 (0.6-1.5) mg/dL Glucose 177 H (70-110) mg/dL Calcium 8.4 L (8.7-10.3) mg/dL Current Medications Generic Name Dose Route Start Last Admin Trade Name Freq PRN Reason Stop Dose Admin Acetaminophen 650 mg 03/26/21 15:22 03/28/21 21:30 Acetaminophen Tab 325 Mg Tab PO 650 mg Q6HR PRN Administration Mild Pain or Fever > 100.5 Acetaminophen/Codeine Phosphate 1 each 03/26/21 18:32 Acet/Cod 300 Mg/30 Mg Starter Pack 6 Tab Btl PO Q6H PRN Pain Albuterol Sulfate 2 puff 03/26/21 18:32 03/26/21 21:30 Albuterol Hfa Inhaler INHALATION 2 puff RT-Q4H PRN Administration Shortness Of Breath Alprazolam 0.25 mg 03/26/21 18:32 03/28/21 21:31 Alprazolam 0.25 Mg Tab PO 0.25 mg DAILY PRN Administration Anxiety Amlodipine Besylate 5 mg 03/26/21 21:00 03/29/21 09:31 Amlodipine 5 Mg Tab PO 5 mg BID ANDREW Administration Aspirin 325 mg 03/26/21 21:00 03/28/21 21:30 Aspirin 325 Mg Tab PO 325 mg HS ANDREW Administration Atorvastatin Calcium 40 mg 03/27/21 09:00 03/29/21 09:31 Atorvastatin 40 Mg Tab PO 40 mg DAILY ANDREW Administration Azithromycin 500 mg 03/27/21 09:00 03/29/21 09:31 Azithromycin 500 Mg Tab PO 500 mg DAILY ANDREW Administration Cholecalciferol 25 mcg 03/27/21 09:00 03/29/21 09:31 Cholecalciferol 25 Mcg (1000 Iu) Tablet PO 25 mcg DAILY ANDREW Administration Clopidogrel Bisulfate 75 mg 03/27/21 09:00 03/29/21 09:32 Clopidogrel 75 Mg Tab PO 75 mg DAILY ANDREW Administration Fluticasone Propionate 2 spray 03/27/21 09:00 03/29/21 09:32 Fluticasone 50mcg/[place] Nasal 16gm EA NOSTRIL 2 spray DAILY ANDREW Administration Furosemide 20 mg 03/27/21 15:00 03/28/21 13:14 Furosemide 20 Mg Tab PO 20 mg DAILY@1500 ANDREW Administration Furosemide 40 mg 03/27/21 09:00 03/29/21 09:33 Furosemide 20 Mg Tab PO 40 mg DAILY ANDREW Administration Gabapentin 100 mg 03/26/21 21:00 03/28/21 21:30 Gabapentin 100 Mg Cap PO 100 mg HS ANDREW Administration Glimepiride 1 mg 03/27/21 09:00 03/29/21 09:31 Glimepiride 1 Mg Tab PO 1 mg DAILY ANDREW Administration Heparin Sodium (Porcine) 5,000 unit 03/27/21 00:00 03/29/21 09:32 Heparin Sodium,Porcine/Pf 5,000 Unit/0.5 Ml Syringe SQ 5,000 unit Q8HR ANDREW Administration Ceftriaxone Sodium 1 gm/ 50 mls @ 100 mls/hr 03/27/21 16:00 03/28/21 16:06 Sodium Chloride IVPB 100 mls/hr Q24H ANDREW Administration Insulin Aspart 0 unit 03/26/21 21:00 03/29/21 09:32 Insulin Aspart (Novolog) 100 Unit/Ml Vial SQ 1 unit ACHS ANDREW Administration Protocol Isosorbide Mononitrate 60 mg 03/27/21 09:00 03/29/21 09:30 Isosorbide Mononitrate Er 60 Mg Tab.Er.24h PO 60 mg DAILY ANDREW Administration Levothyroxine Sodium 88 mcg 03/27/21 06:30 03/29/21 06:08 Levothyroxine 88 Mcg Tab PO 88 mcg DAILY@0630 ANDREW Administration Losartan Potassium 100 mg 03/27/21 09:00 03/29/21 09:32 Losartan 50 Mg Tab PO 100 mg DAILY ANDREW Administration Metoprolol Tartrate 25 mg 03/26/21 21:00 03/29/21 09:31 Metoprolol Tartrate 25 Mg Tab PO 25 mg BID ANDREW Administration Multivitamins/Minerals 2 each 03/27/21 09:00 03/29/21 09:31 Vit A,C & [id number]-[id number]-Ulfwlnyz 1 Each Tab PO 2 each DAILY ANDREW Administration Naloxone HCl 0.2 mg 03/26/21 15:22 Naloxone 0.4 Mg/Ml 1 Ml Vial IV Q2M PRN Opioid Reversal Pantoprazole Sodium 40 mg 03/27/21 07:30 03/29/21 09:31 Pantoprazole 40 Mg Tablet PO 40 mg DAILY@0730 ANDREW Administration Intake and Output 03/28/21 03/29/21 03/29/21 22:59 06:59 14:59 Intake Total 50 Balance 50 Intake: Intake, IV Titration 50 Amount cefTRIAXone 1 gm In 50 Sodium Chloride 0.9% 50 ml @ 100 mls/hr IVPB Q24H [facility] Rx#:[id number] Other: Voiding Method Toilet Toilet # Voids 15 # Bowel Movements 4 03/29/21 05:30 03/29/21 05:30
--- NOTE | 2021-03-29 14:46 | P.PN ---
Subjective Progress Note Date: 03/29/21 Pneumonia exertional short of breath. 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 Patient was seen by her primary care physician and was st arted on antibiotics. Patient was referred to ER without improvement in breathing status. Patient was taken off her Lasix approximately 2 weeks ago and was reinstated earlier this week. Patient denied any complaints of chest pain or pleuritic chest pain. No fever. Patient states that she did have some chills. No nausea vomiting or abdominal pain or diarrhea. Chest x-ray showed no evidence for acute pulmonary disease. EKG showed sinus bradycardia. Laboratory data showed WBC 12.6, hemoglobin 13.8 and platelets 401, sodium 131 potassium 5.3 chloride 93 BUN 19 and creatinine 0.87 blood sugar 141 proBNP 181 and troponin 0 0.012 03/27/2021 Patient is currently walking to the bathroom with a walker. Complains of shortness of breath. No chest pain. No nausea vomiting. Patient did not have any involvement today. No nausea vomiting. Tolerating oral diet. Patient has been afebrile. Not tachycardic or hypoxic. Laboratory data showed WBC 7.4 hemoglobin 13.1 platelets 339 Sodium 130 potassium 4.2 chloride 92 BUN 18 and creatinine 0.77 and blood sugar is 242 this morning. Patient is being continued on antibiotics in the form of ceftriaxone and azithromycin. 03/28/2021 Patient is sitting in the chair. Awake alert oriented x3. Patient is complaining of tightness in the chest with walking. No complaints of nausea or vomiting. No diarrhea. Blood pressure 156/78 this morning with pulse 56 respirations 16 and pulse ox 95% on room air. Patient is being current on antibiotics. Currently on aspirin Plavix statins metoprolol and Lasix as well as losartan. Cardiology was consulted due to exertional dyspnea and further evaluation with extensive history of CAD. 03/29/2021 Patient is seen today at bedside with family. States she has been up in the chair and has been ambulating with a walker. Still complaining on some medial chest heaviness that started prior to admission. Denies dyspnea on exertion and with rest. Pt is currently on room air, maintaining sats of 95%. Pt has a strong cardiac history with 7 stents, maintained on aspirin and plavix. Cardiology consultation pending for this morning, initial troponin in the EC WNL. Chest xray this morning shows COPD, and an increase of patchy atelectasis verse developing infiltrate at the left base. Patient is currently being treated with IV Rocephin and oral Zithromax. Patient is also receiving albuterol every 4 hours as needed for shortness of breath. White blood cell remained stable this morning at 10.32. Patient is a type II diabetic, we'll continue to monitor blood sugars, currently being treated with sliding scale insulin and Amaryl. ROS: Constitutional: Denied any fatigue denied any fever. Cardio vascular: Reports medial chest pressure, denies palpitations Gastrointestinal denied any nausea vomiting Pulmonary: Denied any shortness of breath. Reports cough, denies sputum production Neurologic denied any new focal deficits All inpatient medications were reviewed and appropriate changes in these medications as dictated in the interval history and assessment and plan. PHYSICAL EXAMINATION: GENERAL: The patient is alert and oriented x3, not in any acute distress. Well developed, well nourished. HEENT: Pupils are round and equally reacting to light. EOMI. No scleral icterus. No conjunctival pallor. Normocephalic, atraumatic. No pharyngeal erythema. No thyromegaly. CARDIOVASCULAR: S1 and S2 present. No murmurs, rubs, or gallops. PULMONARY: Chest is clear to auscultation, no wheezing or crackles. ABDOMEN: Soft, nontender, nondistended, normoactive bowel sounds. No palpable organomegaly. MUSCULOSKELETAL: No joint swelling or deformity. EXTREMITIES: No cyanosis, clubbing, +1 mild pitting left foot edema, negative ankle edema NEUROLOGICAL: Gross neurological examination did not reveal any focal deficits. SKIN: No rashes. Assessment: Community-acquired pneumonia. Failed outpatient antibiotic therapy. Exertional dyspnea most likely r/t CAP. Coronary arteries with history of stent placement x7 Diabetes type 2 uvo-kcakzkf-zqtwkahds with hyperglycemia GERD Hearing disorder/deafness History of CVA with left eye blindness Hypothyroidism History of [place] Arthritis in bilateral hands. Anxiety Central spinal stenosis and lumbar multilevel degenerative disc disease Hyponatremia most likely related to diuretic use, Lasix currently on hold DVT prophylaxis with heparin subcu Plan: Patient will be continued on antibiotics in the form of ceftriaxone and azithromycin. Continue to encourage incentive spirometry 10 times an hour while awake. Continue to increase activity level. PT OT consultation. Urinalysis negative. Continue with home blood pressure medications and GI, DVT prophylaxis. Cardiology consultation pending, echo pending. Discussed with the patient and her son at bedside in detail. Discharge pending in the next 24-48 hours, pending cardiology recommendations and recommendations from PT OT. Objective - Vital Signs Vital signs: Vital Signs Temp 97.6 F 03/29/21 08:00 Pulse 69 03/29/21 08:00 Resp 18 03/29/21 08:00 BP 134/70 03/29/21 08:00 Pulse Ox 95 03/29/21 08:00 Intake & Output 03/28/21 03/29/21 03/29/21 18:59 06:59 18:59 Intake Total 50 Balance 50 Intake: Intake, IV Titration 50 Amount cefTRIAXone 1 gm In 50 Sodium Chloride 0.9% 50 ml @ 100 mls/hr IVPB Q24H [facility] Rx#:[id number] Other: Voiding Method Toilet Toilet # Voids 15 # Bowel Movements 4 - Exam PHYSICAL EXAMINATION: Patient is lying in the bed comfortably, no acute distress, awake alert and oriented.. HEENT: Normocephalic. Neck is supple. Pupils reactive. Nostrils clear. Oral cavity is moist. Neck reveals no JVD, carotid bruits, or thyromegaly. CHEST EXAMINATION: Trachea is central. Symmetrical expansion. Bibasilar diminished sounds and no wheeze.. CARDIAC: Normal S1, S2 with no gallops. No murmurs ABDOMEN: Soft. Bowel sounds normal. No organomegaly. No abdominal bruits. Extremities: reveal mild +1 Left foot. No clubbing or cyanosis Neurologically awake, alert, oriented x3 with well-coordinated movements. No gross focal deficits noted Skin: No rash or skin lesions. Psychiatric: Coperative. Nonsuicidal Musculoskeletal: No joint swelling or deformity. Normal range of motion. - Labs CBC & Chem 7: 03/29/21 05:30 03/29/21 05:30 Labs: Abnormal Lab Results - Last 24 Hours (Table) 03/28/21 03/28/21 03/28/21 Range/Units 11:39 16:47 21:07 WBC (4.50-10.00) X 10*3/uL Immature Gran # (0.00-0.04) X 10*3/uL Sodium (135-145) mmol/L Anion Gap (4.00-12.00) mmol/L BUN (9.0-27.0) mg/dL Est GFR (CKD-EPI)NonAf (60.0-200.0) BUN/Creatinine Ratio (12.00-20.00) Ratio Glucose (70-110) mg/dL POC Glucose (mg/dL) 120 H 144 H 193 H (75-99) mg/dL Calcium (8.7-10.3) mg/dL 03/29/21 03/29/21 03/29/21 Range/Units 05:30 05:30 07:17 WBC 10.32 H (4.50-10.00) X 10*3/uL Immature Gran # 0.10 H (0.00-0.04) X 10*3/uL Sodium 134 L (135-145) mmol/L Anion Gap 13.40 H (4.00-12.00) mmol/L BUN 32.0 H (9.0-27.0) mg/dL Est GFR (CKD-EPI)NonAf 57.5 L (60.0-200.0) BUN/Creatinine Ratio 35.56 H (12.00-20.00) Ratio Glucose 177 H (70-110) mg/dL POC Glucose (mg/dL) 150 H (75-99) mg/dL Calcium 8.4 L (8.7-10.3) mg/dL Microbiology - Last 24 Hours (Table) 03/26/21 15:24 Blood Culture - Preliminary Blood No Growth after 48 hours 03/26/21 15:24 Blood Culture - Preliminary Blood No Growth after 48 hours Assessment and Plan Time with Patient: Greater than 30
[2021-03-29 15:46] VITALS: RESP 16
[2021-03-29 17:21] LABS: Glucose,Whole Blood 157 mg/dL (75-99)
[2021-03-29 20:39] LABS: Glucose,Whole Blood 208 mg/dL (75-99)
[2021-03-29] MEDS: ASPIRIN 325 MG TAB PO SCH (23:13)
[2021-03-29] MEDS: ALPRAZolam 0.25 MG TAB PO PRN (23:13)
[2021-03-29] MEDS: GABAPENTIN 100 MG CAP PO SCH (23:13)
[2021-03-30 07:14] LABS: Glucose,Whole Blood 136 mg/dL (75-99)
[2021-03-30 08:04] VITALS: TEMP 97.6
[2021-03-30] MEDS: LEVOTHYROXINE 88 MCG TAB PO SCH (08:27)
[2021-03-30] MEDS: INSULIN ASPART (NovoLOG) 100 UNIT/ML VIAL SQ SCH ×2 (08:28→13:48)
[2021-03-30] MEDS: HEPARIN SODIUM,PORCINE/PF 5,000 UNIT/0.5 ML SYRINGE SQ SCH (08:28)
[2021-03-30] MEDS: PANTOPRAZOLE 40 MG TABLET PO SCH (08:28)
--- NOTE | 2021-03-30 11:00 | ECHOF ---
Referral Reason:LV function MEASUREMENTS -------- HEIGHT: 149.9 cm WEIGHT: 72.1 kg BP: RVIDd: 2.5 cm (< 3.3) IVSd: 1.3 cm (0.6 - 1.1) LVIDd: 3.3 cm (3.9 - 5.3) LVPWd: 1.3 cm (0.6 - 1.1) IVSs: 1.9 cm LVIDs: 2.1 cm LVPWs: 1.8 cm LA Diam: 3.2 cm (2.7 - 3.8) Ao Diam: 3.2 cm (2.0 - 3.7) AV Cusp: 1.9 cm (1.5 - 2.6) MV EXCURSION: 9.414 mm (> 18.000) MV EF SLOPE: 32 mm/s (70 - 150) EPSS: 0.5 cm MV E Adrian: 0.64 m/s MV DecT: 364 ms MV A Adrian: 0.90 m/s MV E/A Ratio: 0.71 RAP: 5.00 mmHg RVSP: 24.94 mmHg FINDINGS -------- Sinus rhythm. This was a technically adequate study. The left ventricular size is normal. There is mild concentric left ventricular hypertrophy. Overa ll left ventricular systolic function is normal with, an EF between 55 - 60 %. The right ventricle is normal in size. The left atrium is normal in size. The right atrial size is normal. Interatrial and interventricular septum intact. Aortic valve is trileaflet and is mildly thickened. Mild mitral annular calcification present. There is trace to mild mitral regurgitation. The tricuspid valve appears structurally normal. Mild tricuspid regurgitation present. Right vent ricular systolic pressure is normal at < 35 mmHg. Trace/mild (physiologic) pulmonic regurgitation. The aortic root size is normal. Normal inferior vena cava with normal inspiratory collapse consistent with estimated right atrial pre ssure of 5 mmHg. There is no pericardial effusion. CONCLUSIONS -------- 1. There is mild concentric left ventricular hypertrophy. 2. Overall left ventricular systolic function is normal with, an EF between 55 - 60 %. 3. The left atrium is normal in size. 4. Aortic valve is trileaflet and is mildly thickened. 5. Mild mitral annular calcification present. 6. There is trace to mild mitral regurgitation. 7. Mild tricuspid regurgitation present. 8. Trace/mild (physiologic) pulmonic regurgitation. 9. There is no pericardial effusion. LITIGATION LEGAL ASSISTANT: Berenice Sampson RDCS
[2021-03-30] MEDS: VIT A,C & E-LUTEIN-MINERALS 1 EACH TAB PO SCH (11:36)
[2021-03-30] MEDS: ATORVASTATIN 40 MG TAB PO SCH (11:36)
[2021-03-30] MEDS: AZITHROMYCIN 500 MG TAB PO SCH (11:37)
[2021-03-30] MEDS: CHOLECALCIFEROL 25 MCG (1000 IU) TABLET PO SCH (11:37)
[2021-03-30] MEDS: ISOSORBIDE MONONITRATE ER 60 MG TAB.ER.24H PO SCH (11:38)
[2021-03-30] MEDS: CLOPIDOGREL 75 MG TAB PO SCH (11:40)
[2021-03-30] MEDS: LOSARTAN 50 MG TAB PO SCH (11:40)
[2021-03-30] MEDS: GLIMEPIRIDE 1 MG TAB PO SCH (11:40)
[2021-03-30] MEDS: METOPROLOL TARTRATE 25 MG TAB PO SCH (11:41)
[2021-03-30 11:42] LABS: HCT 38.4 % (37.2-46.3); HGB 12.9 g/dL (12.0-15.0); MCH 29.7 pg (27.0-32.0); MCHC 33.6 g/dL (32.0-37.0); MCV 88.5 fL (80.0-97.0); Mean Platelet Volume 10.2 fL (9.5-12.2); Platelet Count 354 X 10*3/uL (140-440); RBC 4.34 X 10*6/uL (4.10-5.20); RDW 13.2 % (11.5-14.5); WBC 10.38 X 10*3/uL (4.50-10.00)
[2021-03-30] MEDS: ALBUTEROL HFA INHALER INHALATION PRN (11:42)
[2021-03-30] MEDS: FLUTICASONE 50MCG/SPRAY NASAL 16GM EA NOSTRIL SCH (11:42)
[2021-03-30] MEDS: amLODIPine 5 MG TAB PO SCH (11:42)
[2021-03-30 12:11] LABS: Glucose,Whole Blood 137 mg/dL (75-99)
--- NOTE | 2021-03-30 12:55 | P.PN ---
Subjective Progress Note Date: 03/30/21 HISTORY OF PRESENT ILLNESS: This is a 85-year-old female with a past medical history significant for coronary artery disease with previous stenting, hypertension, hyperlipidemia, diabetes mellitus, carotid stenosis, and CVA. Patient follows in the office with Dr. Silva. We have been asked to see the patient in consultation for chest pain. Patient examined at the bedside. She is admitted to the hospital with pneumonia. Patient states over the past two weeks she has not been feeling well. She reports shortness of breath. She reports having a cough with sputum production which has since improved. She reports occasional chest pressure since she has not been feeling well recently. She also reports shortness of breath with exertion. She denies shortness of breath at rest. EKG reveals sinus mechanism with right bundle branch block. Chest xray COPD. Increased patchy atelectasis versus developing infiltrate at the left base. Laboratory data: WBC 10.32. Hemoglobin 13.0. Platelet count 367. Sodium 134. Potassium 4.1. BUN 32. Creatinine 0.90. Current home cardiac medications include amlodipine 5 mg twice a day, metoprolol tartrate 25 mg twice a day, losartan 100 mg daily, Imdur 60 mg daily, Lasix 40 mg in the morning and 20 mg in the afternoon, Plavix 75 mg daily, Lipitor 40 mg daily, aspirin 325 mg at night Most recent echocardiogram obtained in April 2020 revealed ejection fraction 50-55%. Mild mitral regurgitation. Mild tricuspid regurgitation. Cardiac catheterization history: September 2018 with stenting to the circumflex. Patient underwent cardiac catheterization again in October 2018 revealing patent stent to the circumflex and LAD. 03/30/[address] Short. Patient is sitting up in the chair. She denies shortness of breath. She denies cough or congestion. Denies chest pain or pressure. Echo completed reveals EF 55-60%, tract to mild mitral regurgitation, and mild tricuspid regurgitation. Vital signs are stable. PHYSICAL EXAM: VITAL SIGNS: Reviewed. GENERAL: Well-developed in no acute distress. HEENT: Head is normocephalic. Pupils are equal, round. Sclerae anicteric. Mucous membranes of the mouth are moist. Neck supple. No JVD or thyromegaly LUNGS: Respirations even and unlabored. Lungs diminished bilaterally. HEART: Regular rate and rhythm. S1 and S2 heard. ABDOMEN: Soft. Nondistended. Nontender. EXTREMITIES: Normal range of motion. No clubbing or cyanosis. Peripheral pulses intact. No lower extremity edema NEUROLOGIC: Awake and alert. Oriented x 3. ASSESSMENT: Pneumonia Exertional dyspnea, likely secondary to above Coronary artery disease with previous stenting Hypertension Hyperlipidemia Diabetes mellitus Carotid stenosis History of CVA PLAN: Continue current cardiac medications Patient is stable from a cardiac standpoint Patient may follow up with Dr. Silva outpatient We will sign off. Please reconsult if needed. Nurse practitioner note has been reviewed by physician. Signing provider agrees with the documented findings, assessment, and plan of care. Objective - Vital Signs Vital signs: Vital Signs Temp 97.6 F 03/30/21 08:00 Pulse 51 L 03/30/21 08:00 Resp 16 03/30/21 08:00 BP 154/93 03/30/21 08:00 Pulse Ox 97 03/30/21 08:00 Intake & Output 03/29/21 03/30/21 03/30/21 18:59 06:59 18:59 Intake Total 100 240 Output Total 300 Balance 100 -60 Intake: Intake, IV Titration 100 Amount cefTRIAXone 1 gm In 100 Sodium Chloride 0.9% 50 ml @ 100 mls/hr IVPB Q24H [facility] Rx#:[id number] Oral 240 Output: Urine 300 Other: Voiding Method Toilet Toilet # Voids 2 # Bowel Movements 4 - Labs CBC & Chem 7: 03/30/21 06:16 03/29/21 05:30 Labs: Abnormal Lab Results - Last 24 Hours (Table) 03/29/21 03/29/21 03/30/21 Range/Units 17:20 20:36 06:16 WBC 10.38 H (4.50-10.00) X 10*3/uL POC Glucose (mg/dL) 157 H 208 H (75-99) mg/dL 03/30/21 03/30/21 Range/Units 07:13 12:10 WBC (4.50-10.00) X 10*3/uL POC Glucose (mg/dL) 136 H 137 H (75-99) mg/dL Microbiology - Last 24 Hours (Table) 03/26/21 15:24 Blood Culture - Preliminary Blood No Growth after 72 hours 03/26/21 15:24 Blood Culture - Preliminary Blood No Growth after 72 hours
--- NOTE | 2021-03-30 13:51 | P.DS ---
Providers Date of admission: 03/26/21 15:22 Attending physician: Sabrina Menard Primary care physician: Anthony Cameron Hospital Course: Final Diagnosis Community-acquired pneumonia. Failed outpatient antibiotic therapy. Exertional dyspnea most likely r/t CAP Coronary arteries with history of stent placement x7 Diabetes type 2 jjq-stjgqup-fatcmaunc with hyperglycemia GERD Hearing disorder/deafness History of CVA with left eye blindness Hypothyroidism History of [place] Arthritis in bilateral hands. Anxiety Central spinal stenosis and lumbar multilevel degenerative disc disease Hyponatremia most likely related to diuretic use DVT prophylaxis with heparin subcu Discharge Disposition Patient is being discharged home with home care. Patient has help from her children. Patient is being discharged in a stable condition. Patient will foll ow up with primary care provider in 2-3 days. Patient will also follow-up with Dr. MATT Moser within the next 1-2 weeks. Patient also have her electrolytes checked within 2-3 days. Total time taken with this patient is greater than 35 minutes. 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 This patient presents to the ER with complaints of cough and shortness of breath worsening for the past 2 weeks. Patient was seen by her primary care physician and was started on antibiotics. She was then referred to the emergency room without improvement in her breathing status. Patient was taken off of her Lasix approximately 2 weeks ago was reinstated early this week. Patient the time of my initial examination was denying completes her chest pain. Patient does admit to a mild nonproductive cough. Patient reports that her shortness of breath has much improved. Patient's activity has been increased. Physical therapy evaluation recommended home with home care. Patient is in agreement with this plan. Patient has ongoing issue with her sodium she states that it fluctuates, sodium level today is 134 which is an improvement from admission. Patient will be discharged home on a decreased dose of Lasix to 20 mg by mouth daily and will follow-up with her president. In addition patient's blood pressure is stable and well- controlled we will hold off on the metoprolol at this time due to her heart rate being in the 50s. Patient will take Ceftin 500 mg twice a day for the next 5 days for her pneumonia and continue to use her incentive spirometer. Patient will have her electrolytes checked within the next 2-3 days. Patient is evaluated today on 03/30/2021 she is sitting up in the chair, she states she is feeling much better, she denies shortness of breath, denies chest pain. She still reports a mild nonproductive cough that is much improved. She is maintaining her oxygen saturation at 97% on room air. Additional vital signs are stable, patient remains afebrile 96.7, sinus bradycardia on the heart monitor with a heart rate of 51, and blood pressure of 154/93. Cardiology has cleared patient and ruled out an acute coronary event. Recommended outpatient follow-up with Dr. MATT MOSER. Echocardiogram is resulted which revealed an EF 55-60%. There is trace to mild mitral regurgitation, mild tricuspid regurgitation, trace to mild pulmonic regurgitation. Blood cultures are ne gative. Patient discontinued continue all current medications including IV antibiotics. Patient continues to use her incentive spirometer. Patient would like to be discharged home today. Please refer to current medication reconciliation for a list of current medication. Patient Condition at Discharge: Stable Plan - Discharge Summary New Discharge Prescriptions: New Cefuroxime Axetil [Ceftin] 500 mg PO BID 5 Days #10 tab Furosemide [Lasix] 20 mg PO DAILY #30 tab Continue Vits A,C,E/Lutein/Minerals [Ocuvite with Lutein Tablet] 2 tab PO DAILY Cholecalciferol [Vitamin D3 (25 Mcg = 1000 Iu)] 1,000 unit PO DAILY Levothyroxine Sodium [Synthroid] 88 mcg PO DAILY ALPRAZolam [Xanax] 0.25 mg PO DAILY PRN #30 PRN Reason: Anxiety metFORMIN HCL [Glucophage] 500 mg PO BID Glimepiride [Amaryl] 1 mg PO DAILY Acetaminophen with Codeine [Tylenol w/codeine #3] 1 tab PO Q6H PRN PRN Reason: Pain amLODIPine [Norvasc] 5 mg PO BID #60 tab Furosemide [Lasix] 20 mg PO DAILY@1500 Isosorbide Mononitrate ER [Imdur] 60 mg PO DAILY #30 tab.er.24h Famotidine [Pepcid] 20 mg PO BID #14 tablet Gabapentin [Neurontin] 100 mg PO HS Losartan [Cozaar] 100 mg PO DAILY Clopidogrel [Plavix] 75 mg PO DAILY #30 tab Atorvastatin [Lipitor] 40 mg PO DAILY Aspirin 325 mg PO HS Fluticasone Nasal Simla [Flonase Nasal Simla] 2 spr EA NOSTRIL DAILY Albuterol Inhaler [Ventolin Hfa Inhaler] 2 puff INHALATION RT-Q4H PRN PRN Reason: Shortness Of Breath Esomeprazole Magnesium [NexIUM 24Hr] 20 mg PO DAILY Furosemide [Lasix] 40 mg PO DAILY Discontinued Metoprolol Tartrate [Lopressor] 25 mg PO BID Cefdinir [Omnicef] 300 mg PO Q12H Azithromycin [Zithromax Z-pack (6 tabs)] See Taper PO DAILY Discharge Medication List Cholecalciferol [Vitamin D3 (25 Mcg = 1000 Iu)] 1,000 unit PO DAILY 05/03/16 [ History] Vits A,C,E/Lutein/Minerals [Ocuvite with Lutein Tablet] 2 tab PO DAILY 05/03/16 [History] Levothyroxine Sodium [Synthroid] 88 mcg PO DAILY 05/31/17 [History] ALPRAZolam [Xanax] 0.25 mg PO DAILY PRN #30 06/05/17 [Rx] Glimepiride [Amaryl] 1 mg PO DAILY 04/28/18 [History] metFORMIN HCL [Glucophage] 500 mg PO BID 04/28/18 [History] Acetaminophen with Codeine [Tylenol w/codeine #3] 1 tab PO Q6H PRN 09/25/18 [History] amLODIPine [Norvasc] 5 mg PO BID #60 tab 10/21/18 [Rx] Furosemide [Lasix] 20 mg PO DAILY@1500 01/08/19 [History] Isosorbide Mononitrate ER [Imdur] 60 mg PO DAILY #30 tab.er.24h 01/09/19 [Rx] Famotidine [Pepcid] 20 mg PO BID #14 tablet 03/14/19 [Rx] Gabapentin [Neurontin] 100 mg PO HS 05/25/20 [History] Losartan [Cozaar] 100 mg PO DAILY 05/25/20 [History] Clopidogrel [Plavix] 75 mg PO DAILY #30 tab 05/28/20 [Rx] Albuterol Inhaler [Ventolin Hfa Inhaler] 2 puff INHALATION RT-Q4H PRN 03/26/21 [History] Aspirin 325 mg PO HS 03/26/21 [History] Atorvastatin [Lipitor] 40 mg PO DAILY 03/26/21 [History] Esomeprazole Magnesium [NexIUM 24Hr] 20 mg PO DAILY 03/26/21 [History] Fluticasone Nasal Simla [Flonase Nasal Simla] 2 spr EA NOSTRIL DAILY 03/26/21 [History] Furosemide [Lasix] 40 mg PO DAILY 03/26/21 [History] Cefuroxime Axetil [Ceftin] 500 mg PO BID 5 Days #10 tab 03/30/21 [Rx] Furosemide [Lasix] 20 mg PO DAILY #30 tab 03/30/21 [Rx] Follow up Appointment(s)/Referral(s): Anthony Cameron MD [Primary Care Provider] - 1-2 days Les Moser MD [STAFF PHYSICIAN] - 1 Week Ambulatory/Diagnostic Orders: Basic Metabolic Panel [LAB.AMB] Time Frame: 3 Days, Location: None Selected Activity/Diet/Wound Care/Special Instructions: Activity Limited until follow up Please follow up with primary care provider Continue heart healthy diet Decrease Lasix to 20 mg by mouth daily, discontinue metoprolol and follow-up with Dr. Ricardo Xavier by mouth twice a day for 5 days for pneumonia continue using incentive spirometer Discharge Disposition: HOME SELF-CARE
[2021-03-30 14:47] VITALS: BP 111/71; PULSE 61
[2021-03-30 19:20] LABS: African American GFR (CKD) 76.8 (60.0-200.0); Anion Gap 15.9 mmol/L (4.00-12.00); BUN/Creat Ratio 36.25 Ratio (12.00-20.00); Calcium 8.7 mg/dL (8.7-10.3); Carbon Dioxide 23.1 mmol/L (21.6-31.8); Non-African American GFR(CKD) 66.3 (60.0-200.0); Potassium 4.4 mmol/L (3.5-5.5)
== END 2021-03-30 16:20 | disposition home health service (06) | DRG 194 ==
LOC: EC 14:04 → 4SSUR 15:22
PROVIDERS: ADMIT Internal Medicine; ATTEND Internal Medicine
DX: J18.9 Pneumonia, unspecified organism (principal); J44.0 Chronic obstructive pulmonary disease with (acute) lower respiratory infection; E87.1 Hypo-osmolality and hyponatremia; J98.11 Atelectasis; E11.65 Type 2 diabetes mellitus with hyperglycemia; E78.5 Hyperlipidemia, unspecified; F41.9 Anxiety disorder, unspecified; Y95 Nosocomial condition; Z20.822 Contact with and (suspected) exposure to COVID-19; E89.0 Postprocedural hypothyroidism; I69.398 Other sequelae of cerebral infarction; H53.8 Other visual disturbances; H54.8 Legal blindness, as defined in USA; H91.90 Unspecified hearing loss, unspecified ear; R00.1 Bradycardia, unspecified; I08.1 Rheumatic disorders of both mitral and tricuspid valves; I10 Essential (primary) hypertension; I25.10 Atherosclerotic heart disease of native coronary artery without angina pectoris; I25.2 Old myocardial infarction; I45.10 Unspecified right bundle-branch block; K21.9 Gastro-esophageal reflux disease without esophagitis; M19.041 Primary osteoarthritis, right hand; M19.042 Primary osteoarthritis, left hand; T50.2X5A Adverse effect of carbonic-anhydrase inhibitors, benzothiadiazides and other diuretics, initial encounter; I65.29 Occlusion and stenosis of unspecified carotid artery; M48.061 Spinal stenosis, lumbar region without neurogenic claudication; M51.36 Other intervertebral disc degeneration, lumbar region; Z98.42 Cataract extraction status, left eye; Z98.41 Cataract extraction status, right eye; Z79.02 Long term (current) use of antithrombotics/antiplatelets; Z79.82 Long term (current) use of aspirin; Z79.84 Long term (current) use of oral hypoglycemic drugs; Z79.890 Hormone replacement therapy; Z79.899 Other long term (current) drug therapy; Z90.710 Acquired absence of both cervix and uterus; Z95.5 Presence of coronary angioplasty implant and graft; Z91.048 Other nonmedicinal substance allergy status
CPT/HCPCS: 36415; 71045; 71046; 80048; 80053; 81003; 83605; 83735; 83880; 84484; 85025; 85027; 85610; 85730; 87040; 87635; 93005; 93306; 94640; 94760; 96365; 96366; 96375; 99285

== ENCOUNTER 2021-04-12 06:00 | Inpatient (IN) | payer MEDICARE, BC ==
[2021-04-12] MEDS ORDERED: SODIUM CHLORIDE 0.9% 500 ML 500 ML IV STA (06:24)
[2021-04-12] MEDS ORDERED: ONDANSETRON 4 MG/2 ML VIAL IVP STA (06:24)
[2021-04-12] MEDS ORDERED: ASPIRIN 81 MG PO STA (06:24)
--- NOTE | 2021-04-12 06:36 | ED ---
Chest Pain HPI - General Chief Complaint: Chest Pain Stated Complaint: Chest Pain,Headache Time Seen by Provider: 04/12/21 06:11 Source: patient, EMS, RN notes reviewed Mode of arrival: EMS Limitations: no limitations - History of Present Illness Initial Comments: This an 85-year-old female presents emergency Department with chief complaint of chest discomfort, flushed feeling. Patient states that symptoms started to morning. Patient states she felt short of breath. She did have recent hospitalization for pneumonia possible CHF. Patient states that she's been coughing since home but states today the symptoms are much worse. She still has a pressure and chest she took 81 mg of aspirin she states she felt so hot all over she tried to cool herself down. Patient denies any vomiting states that she is very nauseated. - Related Data Home Medications Medication Instructions Recorded Confirmed Cholecalciferol [Vitamin D3 (25 1,000 unit PO DAILY 05/03/16 03/26/21 Mcg = 1000 Iu)] Vits A,C,E/Lutein/Minerals 2 tab PO DAILY 05/03/16 03/26/21 [Ocuvite with Lutein Tablet] Levothyroxine Sodium [Synthroid] 88 mcg PO DAILY 05/31/17 03/26/21 Glimepiride [Amaryl] 1 mg PO DAILY 04/28/18 03/26/21 metFORMIN HCL [Glucophage] 500 mg PO BID 04/28/18 03/26/21 Acetaminophen with Codeine 1 tab PO Q6H PRN 09/25/18 03/26/21 [Tylenol w/codeine #3] Furosemide [Lasix] 20 mg PO DAILY@1500 01/08/19 03/26/21 Gabapentin [Neurontin] 100 mg PO HS 05/25/20 03/26/21 Losartan [Cozaar] 100 mg PO DAILY 05/25/20 03/26/21 Albuterol Inhaler [Ventolin Hfa 2 puff INHALATION RT-Q4H PRN 03/26/21 03/26/21 Inhaler] Aspirin 325 mg PO HS 03/26/21 03/26/21 Atorvastatin [Lipitor] 40 mg PO DAILY 03/26/21 03/26/21 Esomeprazole Magnesium [NexIUM 20 mg PO DAILY 03/26/21 03/26/21 24Hr] Fluticasone Nasal Thompson [Flonase 2 spr EA NOSTRIL DAILY 03/26/21 03/26/21 Nasal Thompson] Furosemide [Lasix] 40 mg PO DAILY 03/26/21 03/26/21 Previous Rx's Medication Instructions Recorded ALPRAZolam [Xanax] 0.25 mg PO DAILY PRN #30 06/05/17 amLODIPine [Norvasc] 5 mg PO BID #60 tab 10/21/18 Isosorbide Mononitrate ER [Imdur] 60 mg PO DAILY #30 tab.er.24h 01/09/19 Famotidine [Pepcid] 20 mg PO BID #14 tablet 03/14/19 Clopidogrel [Plavix] 75 mg PO DAILY #30 tab 05/28/20 Cefuroxime Axetil [Ceftin] 500 mg PO BID 5 Days #10 tab 03/30/21 Furosemide [Lasix] 20 mg PO DAILY #30 tab 03/30/21 Allergies Allergy/AdvReac Type Severity Reaction Status Date / Time PAPER TAPE Allergy Unknown Rash/Hives Uncoded 04/12/21 06:06 Review of Systems ROS Statement: Those systems with pertinent positive or pertinent negative responses have been documented in the HPI. ROS Other: All systems not noted in ROS Statement are negative. 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 Last Myocardial Infarction Date:: 09/2018 History of Any Multi-Drug Resistant Organisms: None Reported Past Surgical History: Back Surgery, Breast Surgery, Heart Catheterization With Stent, Hysterectomy, Orthopedic Surgery, Tubal Ligation Additional Past Surgical History / Comment(s): PCI with a total of 7 stents, low back surgery, L breast benign bx, R rotator cuff repair, R eye cataract removed, multiple bilateral laser eye surgeries, bilateral eye stents-R one fell out, thyroidectomy d/t nodules, temporal artery bx, cervical and lumbar injections. Past Anesthesia/Blood Transfusion Reactions: Previous Problems w/ Anesthesia Additional Past Anesthesia/Blood Transfusion Reaction / Comment(s): hard to wake up Date of Last Stent Placement:: 10/19/18 Past Psychological History: Anxiety Smoking Status: Never smoker Past Alcohol Use History: None Reported Past Drug Use History: None Reported - Past Family History Mother Family Medical History: Myocardial Infarction (OR) Additional Family Medical History / Comment(s): MOTHER OF A OR AT THE AGE OF 57YRS. Brother(s) Family Medical History: Myocardial Infarction (OR) Additional Family Medical History / Comment(s): BROTHER OF A OR AT THE AGE OF 60YRS. Father Family Medical History: No Reported History Additional Family Medical History / Comment(s): FATHER LIVED TO BE 90YRS OLD. General Exam Limitations: no limitations General appearance: alert, in no apparent distress Head exam: Present: atraumatic, normocephalic, normal inspection Respiratory exam: Present: normal lung sounds bilaterally. Absent: respiratory distress, wheezes, rales, rhonchi, stridor Cardiovascular Exam: Present: regular rate, normal rhythm, normal heart sounds. Absent: systolic murmur, diastolic murmur, rubs, gallop, clicks GI/Abdominal exam: Present: soft, normal bowel sounds. Absent: distended, tenderness, guarding, rebound, rigid Neurological exam: Present: alert, oriented X3, CN II-XII intact Skin exam: Present: warm, dry, intact, normal color. Absent: rash Course Vital Signs 04/12/21 04/12/21 06:03 07:04 Temperature 97.7 F Pulse Rate 88 70 Respiratory 18 20 Rate Blood Pressure 176/83 180/74 O2 Sat by Pulse 100 99 Oximetry Chest Pain MDM - MDM 85-year-old presented for chest discomfort, generalized not feeling well, nausea. Patient found to be hyponatremic with sodium 123. Patient's cardiac enzymes and negative EKG does not show any acute changes. Patient be admitted for fluids, repeat troponin. Disposition Clinical Impression: Hyponatremia, Chest pain Disposition: ADMITTED IP TO THIS HOSP Condition: Fair Referrals: Anthony Cameron MD [Primary Care Provider] - 1-2 days
[2021-04-12 06:42] LABS: Basophils # (A) 0.1 k/uL (0-0.2); Basophils % (A) 1 %; Eosinophils # (A) 0.2 k/uL (0-0.7); Eosinophils % (A) 2 %; HCT 39.1 % (34.0-46.0); HGB 13.2 gm/dL (11.4-16.0); Lymphocytes # (A) 2.3 k/uL (1.0-4.8); Lymphocytes % (A) 23 %; MCH 30.1 pg (25.0-35.0); MCHC 33.8 g/dL (31.0-37.0); MCV 88.9 fL (80.0-100.0); Mean Platelet Volume 7.5; Monocytes # (A) 0.7 k/uL (0-1.0); Monocytes % (A) 7 %; Neutrophils # (A) 6.7 k/uL (1.3-7.7); Neutrophils % (A) 66 %; Platelet Count 341 k/uL (150-450); RDW 13.3 % (11.5-15.5); WBC 10.2 k/uL (3.8-10.6)
[2021-04-12 06:53] LABS: INR 0.9 (<1.2); Partial Thromboplastin Time 25.3 sec (22.0-30.0); Prothrombin Time 9.9 sec (9.0-12.0)
[2021-04-12 06:55] LABS: ALT 22 U/L (4-34); AST 25 U/L (14-36); African American GFR (CKD) >90 (>60 ml/min/1.73 sqM); Albumin 4.6 g/dL (3.5-5.0); Alkaline Phosphatase 157 U/L (38-126); Anion Gap 10 mmol/L; Blood Urea Nitrogen 15 mg/dL (7-17); Calcium 8.9 mg/dL (8.4-10.2); Carbon Dioxide 25 mmol/L (22-30); Chloride 88 mmol/L (98-107); Glucose 151 mg/dL (74-99); Lipase 147 U/L (23-300); Magnesium 1.8 mg/dL (1.6-2.3); Non-African American GFR(CKD) 81 (>60 ml/min/1.73 sqM); Potassium 4.1 mmol/L (3.5-5.1); Sodium 123 mmol/L (137-145); Total Bilirubin 0.6 mg/dL (0.2-1.3); Total Protein 7.2 g/dL (6.3-8.2)
--- NOTE | 2021-04-12 06:59 | XR ---
EXAMINATION TYPE: XR chest 2V DATE OF EXAM: 04/12/2021 COMPARISON: Prior chest x-ray March 29, 2021 and older studies. HISTORY: Chest pressure and pain. TECHNIQUE: Frontal and lateral views of the chest are obtained. FINDINGS: Chronic left basilar opacity redemonstrated favoring scarring and/or atelectasis There is n o new suspicious focal air space opacity, pleural effusion, or pneumothorax seen. The cardiac silhou ette size is stable and within normal limits with atherosclerotic thoracic aorta. The osseous struc tures are intact. IMPRESSION: Chronic changes without new acute pulmonary process.
[2021-04-12] MEDS ORDERED: NITROGLYCERIN SL TABS 0.4 MG TAB SUBLINGUAL PRN (07:58)
[2021-04-12] MEDS ORDERED: SODIUM CHLORIDE 0.9% 1,000 ML IV SCH (08:00)
--- NOTE | 2021-04-12 11:59 | P.CRDCN ---
History of Present Illness Consult date: 04/12/21 History of present illness: HISTORY OF PRESENT ILLNESS: This is a 85-year-old female with a past medical history significant for coronary artery disease with previous stenting, hypertension, hyperlipidemia, diabetes mellitus, carotid stenosis, and CVA. Patient follows in the office with Dr. Silva. We have been asked to see the patient in consultation for chest pain. Patient examined at the bedside in the emergency room. Patient states this m orning she woke up and was feeling extremely hot. She states that she put ice packs on her head and on her feet trying to cool herself down. She states "I felt like my whole body was going to explode". She reports having chest pain across her entire chest as well. She took an aspirin and states the pain has since resolved. She states she was SOB when she laid down and felt less SOB when she was up walking around. At the time of examination, she denies any SOB or chest pain. Patient was found to be hyponatremic with a sodium of 123. Patient states she drinks a lot of water at home and also reports eating lots of ice. EKG reveals sinus mechanism. Right bundle-branch block. No signs of acute ischemia Chest xray chronic changes without new acute pulmonary process Laboratory data: WBC 10.2. Hemoglobin 13.2. Platelet count 341. Sodium 123. Potassium 4.1. BUN 15. Creatinine 0.63. Magnesium 1.8. Troponin negative 2. Current home cardiac medications include Norvasc 5 mg twice a day, losartan 100 mg daily, Imdur 60 mg daily, Lasix 40 mg daily, Plavix 75 mg daily, Lipitor 40 mg daily, aspirin 325mg at night Most recent echocardiogram obtained on 03/29/2021 reveals ejection fraction 55- 60%. Trace to mild mitral regurgitation. Mild tricuspid regurgitation. Cardiac catheterization history: September 2018 with stenting to the circumflex. Patient underwent cardiac catheterization again in October 2018 revealing patent stent to the circumflex and LAD. REVIEW OF SYSTEMS: At the time of my exam: CONSTITUTIONAL: Denies fever or chills. HEENT: Denies blurred vision, vision changes, or eye pain. Denies hemoptysis CARDIOVASCULAR: Denies chest pain. Denies orthopnea. Denies PND. Denies palpitations RESPIRATORY: Denies shortness of breath. GASTROINTESTINAL: Denies abdominal pain. Denies nausea or vomiting. HEMATOLOGIC: Denies bleeding disorders. GENITOURINARY: Denies any blood in urine. SKIN: Denies pruitis. Denies rash. PHYSICAL EXAM: VITAL SIGNS: Reviewed. GENERAL: Well-developed in no acute distress. HEENT: Head is normocephalic. Pupils are equal, round. Sclerae anicteric. Mucous membranes of the mouth are moist. Neck supple. No JVD or thyromegaly LUNGS: Respirations even and unlabored. Lungs essentially clear to auscultation bilaterally. HEART: Regular rate and rhythm. S1 and S2 heard. ABDOMEN: Soft. Nondistended. Nontender. EXTREMITIES: Normal range of motion. No clubbing or cyanosis. Peripheral p ulses intact. No lower extremity edema NEUROLOGIC: Awake and alert. Oriented x 3. ASSESSMENT: Chest pain, or negative 2 Hyponatremia Recent hospitalization secondary to pneumonia Coronary artery disease with previous stenting Hypertension Hyperlipidemia Diabetes mellitus Carotid stenosis History of CVA PLAN: An acute coronary event has been ruled out No need to repeat echocardiogram as this was performed earlier this month Resume home cardiac medications Management of hyponatremia per medicine Further recommendations pending patient course Nurse practitioner note has been reviewed by physician. Signing provider agrees with the documented findings, assessment, and plan of care. 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 Last Myocardial Infarction Date:: 09/2018 History of Any Multi-Drug Resistant Organisms: None Reported Past Surgical History: Back Surgery, Breast Surgery, Heart Catheterization With Stent, Hysterectomy, Orthopedic Surgery, Tubal Ligation Additional Past Surgical History / Comment(s): PCI with a total of 7 stents, low back surgery, L breast benign bx, R rotator cuff repair, R eye cataract removed, multiple bilateral laser eye surgeries, bilateral eye stents-R one fell out, thyroidectomy d/t nodules, temporal artery bx, cervical and lumbar injections. Past Anesthesia/Blood Transfusion Reactions: Previous Problems w/ Anesthesia Additional Past Anesthesia/Blood Transfusion Reaction / Comment(s): hard to wake up Date of Last Stent Placement:: 10/19/18 Past Psychological History: Anxiety Smoking Status: Never smoker Past Alcohol Use History: None Reported Past Drug Use History: None Reported - Past Family History Mother Family Medical History: Myocardial Infarction (AR) Additional Family Medical History / Comment(s): MOTHER OF A AR AT THE AGE OF 57YRS. Brother(s) Family Medical History: Myocardial Infarction (AR) Additional Family Medical History / Comment(s): BROTHER OF A AR AT THE AGE OF 60YRS. Father Family Medical History: No Reported History Additional Family Medical History / Comment(s): FATHER LIVED TO BE 90YRS OLD. Medications and Allergies Home Medications Medication Instructions Recorded Confirmed Type Cholecalciferol [Vitamin D3 (25 1,000 unit PO DAILY 05/03/16 04/12/21 History Mcg = 1000 Iu)] Vits A,C,E/Lutein/Minerals 2 tab PO DAILY 05/03/16 04/12/21 History [Ocuvite with Lutein Tablet] Levothyroxine Sodium [Synthroid] 88 mcg PO DAILY 05/31/17 04/12/21 History ALPRAZolam [Xanax] 0.25 mg PO DAILY PRN #30 06/05/17 04/12/21 Rx Glimepiride [Amaryl] 1 mg PO DAILY 04/28/18 04/12/21 History metFORMIN HCL [Glucophage] 500 mg PO BID 04/28/18 04/12/21 History Acetaminophen with Codeine 0.5 tab PO Q6H PRN 09/25/18 04/12/21 History [Tylenol w/codeine #3] amLODIPine [Norvasc] 5 mg PO BID #60 tab 10/21/18 04/12/21 Rx Isosorbide Mononitrate ER [Imdur] 60 mg PO DAILY #30 tab.er.24h 01/09/19 04/12/21 Rx Famotidine [Pepcid] 20 mg PO BID #14 tablet 03/14/19 04/12/21 Rx Gabapentin [Neurontin] 100 mg PO HS 05/25/20 04/12/21 History Losartan [Cozaar] 100 mg PO DAILY 05/25/20 04/12/21 History Clopidogrel [Plavix] 75 mg PO DAILY #30 tab 05/28/20 04/12/21 Rx Albuterol Inhaler [Ventolin Hfa 2 puff INHALATION RT-Q4H PRN 03/26/21 04/12/21 History Inhaler] Aspirin 325 mg PO HS 03/26/21 04/12/21 History Atorvastatin [Lipitor] 40 mg PO DAILY 03/26/21 04/12/21 History Esomeprazole Magnesium [NexIUM 20 mg PO DAILY 03/26/21 04/12/21 History 24Hr] Fluticasone Nasal Spiro [Flonase 2 spr EA NOSTRIL DAILY 03/26/21 04/12/21 H istory Nasal Spiro] Furosemide [Lasix] 40 mg PO DAILY 03/26/21 04/12/21 History Aspirin EC [Ecotrin Low Dose] 81 mg PO ONCE PRN 04/12/21 04/12/21 History Allergies Allergy/AdvReac Type Severity Reaction Status Date / Time PAPER TAPE AdvReac Unknown Rash/Hives Uncoded 04/12/21 08:00 Physical Exam Vitals: Vital Signs Temp Pulse Resp BP Pulse Ox 04/12/21 08:34 78 16 159/71 98 04/12/21 07:57 73 16 163/72 97 04/12/21 07:04 70 20 180/74 99 04/12/21 06:03 97.7 F 88 18 176/83 100 Intake and Output 04/11/21 04/12/21 04/12/21 22:59 06:59 14:59 Other: Weight 72.121 kg Results 04/12/21 06:27 04/12/21 06:27 Cardiac Enzymes 04/12/21 04/12/21 04/12/21 Range/Units 06:27 06:27 08:54 AST 25 (14-36) U/L Troponin I <0.012 <0.012 (0.000-0.034) ng/mL Coagulation 04/12/21 Range/Units 06:27 PT 9.9 (9.0-12.0) sec APTT 25.3 (22.0-30.0) sec CBC 04/12/21 Range/Units 06:27 WBC 10.2 (3.8-10.6) k/uL RBC 4.40 (3.80-5.40) m/uL Hgb 13.2 (11.4-16.0) gm/dL Hct 39.1 (34.0-46.0) % Plt Count 341 (150-450) k/uL Comprehensive Metabolic Panel 04/12/21 Range/Units 06:27 Sodium 123 L (137-145) mmol/L Potassium 4.1 (3.5-5.1) mmol/L Chloride 88 L (98-107) mmol/L Carbon Dioxide 25 (22-30) mmol/L BUN 15 (7-17) mg/dL Creatinine 0.63 (0.52-1.04) mg/dL Glucose 151 H (74-99) mg/dL Calcium 8.9 (8.4-10.2) mg/dL AST 25 (14-36) U/L ALT 22 (4-34) U/L Alkaline Phosphatase 157 H (38-126) U/L Total Protein 7.2 (6.3-8.2) g/dL Albumin 4.6 (3.5-5.0) g/dL Current Medications Generic Name Dose Route Start Last Admin Trade Name Freq PRN Reason Stop Dose Admin Aspirin 325 mg 04/13/21 09:00 Aspirin 325 Mg Tab PO DAILY ANDREW Sodium Chloride 1,000 mls @ 75 mls/hr 04/12/21 08:00 04/12/21 08:34 Saline 0.9% IV 75 mls/hr .[id number] ANDREW Administration Nitroglycerin 0.4 mg 04/12/21 07:58 Nitroglycerin Sl Tabs 0.4 Mg Tab SUBLINGUAL Q5M PRN Chest Pain Intake and Output 04/11/21 04/12/21 04/12/21 22:59 06:59 14:59 Other: Weight 72.121 kg 04/12/21 06:27 04/12/21 06:27
[2021-04-12 12:45] LABS: Glucose,Whole Blood 152 mg/dL (75-99)
[2021-04-12] MEDS ORDERED: ALBUTEROL HFA INHALER INHALATION PRN (14:34)
[2021-04-12] MEDS ORDERED: Acetaminophen-Codeine 300-30mg TAB PO PRN (14:34)
[2021-04-12] MEDS ORDERED: FLUTICASONE 50MCG/SPRAY NASAL 16GM EA NOSTRIL SCH (14:45)
[2021-04-12] MEDS ORDERED: ONDANSETRON 4 MG/2 ML VIAL IVP PRN (15:05)
[2021-04-12] MEDS: ISOSORBIDE MONONITRATE ER 60 MG TAB.ER.24H PO SCH (15:52)
[2021-04-12] MEDS: CLOPIDOGREL 75 MG TAB PO SCH (15:52)
[2021-04-12 17:30] LABS: Glucose,Whole Blood 238 mg/dL (75-99)
[2021-04-12] MEDS: INSULIN ASPART (NovoLOG) 100 UNIT/ML VIAL SQ SCH ×2 (17:47→21:41)
--- NOTE | 2021-04-12 17:48 | HP ---
HISTORY AND PHYSICAL DATE OF SERVICE: 04/12/2021 CHIEF COMPLAINTS: Shortness of breath, chest pain, headache. HISTORY OF PRESENT ILLNESS: This 85-year-old woman with a past medical history of multiple medical problems, including history of CAD, history of CVA, TIA, diabetes mellitus, type 2, GERD, hypertension, hyperlipidemia, being followed by Dr. Anthony Cameron in the outpatient setting, was recently admitted with pneumonia. Patient went home, improved, but currently yesterday the patient actually went home with some cough and shortness of breath, but after sleeping for an hour and a half the patient was significantly short of breath. The patient was complaining of headache and the patient was slightly confused. She was brought to [facility] and was admitted for further evaluation and treatment. On admission the pulse ox was found to be 100% on room air. Blood pressure was elevated at 176/83. A chest x-ray done in the ER, which was reviewed personally by me, showed minimally increased bronchovascular markings, mostly chronic changes, and a cardiology consultation has been sought. The patient is also complaining of some chest pain. Initial troponins are negative. The EKG, which was reviewed personally by me, showed right bundle branch block, and Cardiology has recommended continued medical management at this time. The patient also has hyponatremia. The patient was also complaining of some vomiting and nausea prior to the episode. There is no history of any fever, rigors or chills. No history of any headache, loss of consciousness, seizures at this time. PAST MEDICAL HISTORY: History of CAD, CVA, TIA, diabetes mellitus, type 2, GERD, hypertension, hyperlipidemia. MEDICATIONS: Home medications are Glucophage, Norvasc, vitamin A, Cozaar, Synthroid, Imdur, Amaryl, Neurontin, Lasix, fluticasone, Pepcid, Nexium, Plavix, vitamin D3, Lipitor, Ecotrin, Tylenol, Xanax. Doses are reviewed. ALLERGIES: ASPARTAME and PAPER TAPE. FAMILY HISTORY: History of myocardial infarction in the family. SOCIAL HISTORY: No history of smoking. No history of alcohol intake. REVIEW OF SYSTEMS: ENT: Diminished hearing. Diminished vision. CARDIOVASCULAR SYSTEM: As mentioned earlier. RESPIRATORY SYSTEM: As mentioned earlier GI: No nausea, vomiting. : No dysuria. NERVOUS SYSTEM: No numbness, weakness. ALLERGY/IMMUNOLOGY: No asthma or hay fever. MUSCULOSKELETAL: As mentioned earlier. HEMATOLOGY/ONCOLOGY: No history of anemia. ENDOCRINE: As mentioned earlier. CONSTITUTIONAL: As mentioned earlier. DERMATOLOGY: Negative. RHEUMATOLOGY: Negative. PSYCHIATRY: As mentioned earlier. PHYSICAL EXAMINATION: Patient alert and oriented x3. Pulse 78, blood pressure 140/60, respiration 18, temperature 98 degrees, pulse ox 98% on room air. HEENT: Conjunctivae normal. Oral mucosa moist. NECK: No jugular venous distention. No carotid bruit. No thyroid enlargement. CARDIOVASCULAR SYSTEM: S1, S2 muffled. No S3. No S4. RESPIRATORY: Breath sounds diminished at the bases. No rhonchi. No crackles. ABDOMEN: Soft, nontender. No mass palpable. LEGS: No edema. No swelling. NERVOUS SYSTEM: Higher functions as mentioned earlier. Moves all 4 limbs. No focal motor or sensory deficit. LYMPHATICS: No lymph node palpable in neck, axillae or groin. SKIN: No ulcer, rash, bleeding. JOINTS: No active deforming arthropathy. LABS: WBC 10.2, hemoglobin 13.2. Sodium 122, potassium 4.1. ASSESSMENT: 1. Chest pain, possible unstable angina. 2. Cough and shortness of breath. Rule out congestive heart failure. 3. Rule out aspiration. 4. Rule out gastroesophageal reflux disease, hiatal hernia. 5. Hyponatremia. 6. Coronary artery disease. 7. Cerebrovascular accident, transient ischemic attack. 8. Diabetes mellitus, type 2. 9. Hard of hearing. 10.Hypertension. 11.Hyperlipidemia. 12.History of myocardial infarction. 13.History of pneumonia. 14.History of hypothyroidism. 15.Episodes of angioedema. 16.History of cerebrovascular accident. 17.Legally blind. 18.Back surgery. 19.History of coronary artery disease, stent. 20.History of anxiety. 21.NO CODE, NO CPR, NO VENT. RECOMMENDATIONS AND DISCUSSION: In this 85-year-old woman who presented with multiple complex medical issues, we will monitor the patient closely, continue the current medications, continue symptomatic treatment. Otherwise at this time I recommend closely following with Cardiology. Medical treatment. Proton pump inhibitors. I would also recommend NT-proBNP. Currently there is no evidence of pneumonia, but we will continue to monitor. Guarded prognosis. Further recommendations to follow. A copy of this dictation is being forwarded to Dr. Cameron, who is the primary physician. Dr. Cameron will follow tomorrow. MMODL / IJN: [id number] /
[2021-04-12 18:20] LABS: Appearance,Urine Clear (Clear); Bilirubin,Urine Negative (Negative); Blood,Urine Negative (Negative); Color,Urine Light Yellow; Glucose,Urine (UA) 3+ (Negative); Ketones,Urine Negative (Negative); Leukocyte Esterase,Urine Negative (Negative); Nitrite,Urine Negative (Negative); PH, Urine 6.5 (5.0-8.0); Protein,Urine Negative (Negative); Specific Gravity,Urine 1.008 (1.001-1.035); Urobilinogen,Urine <2.0 mg/dL (<2.0)
[2021-04-12] MEDS: amLODIPine 5 MG TAB PO SCH (21:23)
[2021-04-12] MEDS: FAMOTIDINE 20 MG TAB PO SCH (21:23)
[2021-04-12] MEDS: GABAPENTIN 100 MG CAP PO SCH (21:23)
[2021-04-12] MEDS: PANTOPRAZOLE 40 MG/10 ML VIAL IVP SCH (21:24)
[2021-04-12 21:34] LABS: Glucose,Whole Blood 116 mg/dL (75-99)
[2021-04-12] MEDS: ALPRAZolam 0.25 MG TAB PO PRN (21:54)
[2021-04-12] MEDS: FLUTICASONE 50MCG/SPRAY NASAL 16GM EA NOSTRIL SCH (21:54)
[2021-04-13] MEDS: LEVOTHYROXINE 88 MCG TAB PO SCH (05:21)
[2021-04-13 07:06] LABS: Glucose,Whole Blood 133 mg/dL (75-99)
[2021-04-13] MEDS ORDERED: PANTOPRAZOLE 40 MG TABLET PO SCH (07:30)
[2021-04-13] MEDS: INSULIN ASPART (NovoLOG) 100 UNIT/ML VIAL SQ SCH ×4 (08:57→22:49)
[2021-04-13] MEDS ORDERED: ASPIRIN 325 MG TAB PO SCH (09:00)
[2021-04-13] MEDS: VIT A,C & E-LUTEIN-MINERALS 1 EACH TAB PO SCH (09:04)
[2021-04-13] MEDS: ATORVASTATIN 40 MG TAB PO SCH (09:04)
[2021-04-13] MEDS: CLOPIDOGREL 75 MG TAB PO SCH (09:04)
[2021-04-13] MEDS: CHOLECALCIFEROL 25 MCG (1000 IU) TABLET PO SCH (09:04)
[2021-04-13] MEDS: amLODIPine 5 MG TAB PO SCH ×2 (09:04→22:49)
[2021-04-13] MEDS: FAMOTIDINE 20 MG TAB PO SCH (09:20)
[2021-04-13] MEDS: FUROSEMIDE 40 MG TAB PO SCH (09:20)
[2021-04-13] MEDS: PANTOPRAZOLE 40 MG/10 ML VIAL IVP SCH ×2 (09:20→22:49)
--- NOTE | 2021-04-13 09:49 | P.PN ---
Subjective This is a 85-year-old female with a past medical history significant for coronary artery disease with previous stenting, hypertension, hyperlipidemia, diabetes mellitus, carotid stenosis, and CVA. Patient follows in the office with Dr. Silva. We have been asked to see the patient in consultation for chest pain. EKG reveals sinus mechanism. Right bundle-branch block. No signs of acute ischemia. Chest xray chronic changes without new acute pulmonary process. Troponin negative 3. Most recent echocardiogram obtained on 03/29/2021 reveals ejection fraction 55-60%. Trace to mild mitral regurgitation. Mild tricuspid regurgitation. Cardiac catheterization history: September 2018 with stenting to the circumflex. Patient underwent cardiac catheterization again in October 2018 revealing patent stent to the circumflex and LAD. 04/14/2021: Patient seen at bedside, no acute distress. Blood pressure 113/64, heart rate 62, afebrile, maintaining oxygen saturations 97% on room air. Telemetry reviewed patient maintained sinus rhythm heart rate 60-80s. Labs have not resulted diarrhea, they are pending. Patient currently maintained on aspirin 81 mg daily, Plavix 75 mg daily, atorvastatin 40 mg daily, Lasix 40 mg daily, Imdur 60 mg daily, losartan 100 mg daily PHYSICAL EXAM: VITAL SIGNS: Reviewed. GENERAL: Well-developed in no acute distress. HEENT: Neck supple. No JVD LUNGS: Respirations even and unlabored. Lungs essentially clear to auscultation bilaterally. HEART: Regular rate and rhythm. S1 and S2 heard. ABDOMEN: Soft. Nondistended. Nontender. EXTREMITIES: Normal range of motion. No clubbing or cyanosis. Peripheral pulses intact. No lower extremity edema NEUROLOGIC: Awake and alert. Oriented x 3. ASSESSMENT: Chest pain, or negative 2 Hyponatremia Recent hospitalization secondary to pneumonia Coronary artery disease with previous stenting Hypertension Hyperlipidemia Diabetes mellitus Carotid stenosis History of CVA PLAN: An acute coronary event has been ruled out No need to repeat echocardiogram as this was performed earlier this month Resume home cardiac medications Management of hyponatremia per medicine We will sign off at this time. Please reconsult if any further questions or concerns. Patient to follow up with Dr. Silva. Nurse practitioner note has been reviewed by physician. Signing provider agrees with the documented findings, assessment, and plan of care. Objective - Vital Signs Vital signs: Vital Signs Temp 97.8 F 04/13/21 08:02 Pulse 62 04/13/21 08:02 Resp 16 04/13/21 08:02 BP 113/64 04/13/21 08:02 Pulse Ox 97 04/13/21 08:02 Intake & Output 04/12/21 04/13/21 04/13/21 18:59 06:59 18:59 Intake Total 800 Output Total 300 Balance 500 Weight 72.121 kg Intake: IV 800 Sodium Chloride 0.9% 1, 300 000 ml @ 75 mls/hr IV . [id number] ANDREW Rx#:[id number] Sodium Chloride 0.9% 500 500 ml 500 ml @ 999 mls/hr IV .Q31M STA Rx#:[id number] Output: Urine 300 Other: Voiding Method Toilet Toilet # Voids 1 1 - Labs CBC & Chem 7: 04/12/21 06:27 04/12/21 06:27 Labs: Abnormal Lab Results - Last 24 Hours (Table) 04/12/21 04/12/21 04/12/21 Range/Units 06:27 12:44 17:28 POC Glucose (mg/dL) 152 H 238 H (75-99) mg/dL Osmolality 261 L (280-301) mosm/kg Urine Glucose (UA) (Negative) 04/12/21 04/12/21 04/13/21 Range/Units 18:04 21:32 07:05 POC Glucose (mg/dL) 116 H 133 H (75-99) mg/dL Osmolality (280-301) mosm/kg Urine Glucose (UA) 3+ H (Negative)
[2021-04-13] MEDS: ISOSORBIDE MONONITRATE ER 60 MG TAB.ER.24H PO SCH (10:49)
[2021-04-13 10:53] LABS: Basophils # (A) 0.05 X 10*3/uL (0.00-0.10); Basophils % (A) 0.7 %; Eosinophils # (A) 0.14 X 10*3/uL (0.04-0.35); Eosinophils % (A) 1.9 %; HCT 32.5 % (37.2-46.3); Lymphocytes # (A) 2.23 X 10*3/uL (0.90-5.00); Lymphocytes % (A) 31.1 %; MCH 30.3 pg (27.0-32.0); MCHC 33.8 g/dL (32.0-37.0); MCV 89.5 fL (80.0-97.0); Monocytes # (A) 0.68 X 10*3/uL (0.20-1.00); Monocytes % (A) 9.5 %; Neutrophils # (A) 4.03 X 10*3/uL (1.80-7.70); Neutrophils % (A) 56.1 %; Platelet Count 288 X 10*3/uL (140-440); RBC 3.63 X 10*6/uL (4.10-5.20); RDW 13.4 % (11.5-14.5); WBC 7.18 X 10*3/uL (4.50-10.00)
[2021-04-13 12:16] LABS: Glucose,Whole Blood 147 mg/dL (75-99)
[2021-04-13 12:17] LABS: African American GFR (CKD) 76.8 (60.0-200.0); Albumin 3.7 g/dL (3.80-4.90); Albumin/Globulin Ratio 2.18 (1.60-3.17); Anion Gap 7.7 mmol/L (4.00-12.00); BUN/Creat Ratio 18.75 Ratio (12.00-20.00); Carbon Dioxide 28.3 mmol/L (21.6-31.8); Chol/HDL Ratio 1.98; Globulin 1.7 g/dL (1.6-3.3); LDL Cholesterol,Calculated 50.8 mg/dL (0.0-131.0); Magnesium 1.9 mg/dL (1.5-2.4); Non-African American GFR(CKD) 66.3 (60.0-200.0); Potassium 4.5 mmol/L (3.5-5.5); Total Bilirubin 0.4 mg/dL (0.3-1.2); Total Protein 5.4 g/dL (6.2-8.2); VLDL Calculation 12.2 mg/dL (5.00-40.00)
[2021-04-13] MEDS: LOSARTAN 50 MG TAB PO SCH (15:33)
[2021-04-13 17:35] LABS: Glucose,Whole Blood 168 mg/dL (75-99)
--- NOTE | 2021-04-13 18:33 | P.PN ---
Subjective Progress Note Date: 04/13/21 Principal diagnosis: Chest pain ruled out unstable angina Hyponatremia 85-year-old female with past medical history of coronary artery disease, history of CVA/TIA, diabetes mellitus type 2, GERD/reflux, hypertension, dyslipidemia, and an multiple comorbidities was admitted to the hospital for chest pain rule out unstable angina, and hyponatremia. Patient initial EKG no acute changes, troponins negative, mild hyponatremia corrected with IV fluids. Consultation with cardiology for expert opinion regarding chest discomfort. 04/13/2021 She is seen and examined at bedside. Patient resting comfortably on side of bed. Patient denies fever, chills chest pain, shortness of breath, abdominal pain, nausea or vomiting at this time. Patient states had one episode of chest discomfort and went to the emergency department, no recent episodes of chest discomfort or shortness of breath. Vital signs are diagnostic testing reviewed. Objective - Vital Signs Vital signs: Vital Signs Temp 98.0 F 04/13/21 15:25 Pulse 89 04/13/21 15:25 Resp 16 04/13/21 15:25 BP 124/60 04/13/21 15:25 Pulse Ox 93 L 04/13/21 15:25 Intake & Output 04/12/21 04/13/21 04/13/21 18:59 06:59 18:59 Intake Total 800 Output Total 300 Balance 500 Weight 72.121 kg Intake: IV 800 Sodium Chloride 0.9% 1, 300 000 ml @ 75 mls/hr IV . [id number] ANDREW Rx#:[id number] Sodium Chloride 0.9% 500 500 ml 500 ml @ 999 mls/hr IV .Q31M STA Rx#:[id number] Output: Urine 300 Other: Voiding Method Toilet Toilet Toilet # Voids 1 1 1 - Constitutional General appearance: Present: cooperative - EENT Eyes: Present: EOMI, PERRLA ENT: Present: hard of hearing, normal oropharynx Ears: bilateral: normal - Neck Neck: Present: normal ROM Carotids: bilateral: upstroke normal Thyroid: bilateral: normal size - Respiratory Respiratory: bilateral: CTA (Anterior & posterior lung tsai) - Cardiovascular Heart rate: 87 Rhythm: regular Heart sounds: normal: S1, S2 - Peripheral pulses radial pulse Peripheral Pulses: bilateral: Normal dorsalis pedis Peripheral Pulses: bilateral: Normal - Gastrointestinal General gastrointestinal: Present: normal bowel sounds, soft - Integumentary Integumentary: Present: decreased turgor - Neurologic Neurologic: Present: CNII-XII intact - Musculoskeletal Musculoskeletal: Present: generalized weakness - Psychiatric Psychiatric: Present: A&O x's 3, appropriate affect, intact judgment & insight - Allied health notes Allied health notes reviewed: nursing - Labs CBC & Chem 7: 04/13/21 06:28 04/13/21 06:28 Labs: Abnormal Lab Results - Last 24 Hours (Table) 04/12/21 04/13/21 04/13/21 Range/Units 21:32 06:28 06:28 RBC 3.63 L (4.10-5.20) X 10*6/uL Hgb 11.0 L (12.0-15.0) g/dL Hct 32.5 L (37.2-46.3) % Immature Gran # 0.05 H (0.00-0.04) X 10*3/uL Sodium 134 L (135-145) mmol/L Glucose 141 H (70-110) mg/dL POC Glucose (mg/dL) 116 H (75-99) mg/dL Calcium 8.0 L (8.7-10.3) mg/dL Total Protein 5.4 L (6.2-8.2) g/dL Albumin 3.70 L (3.80-4.90) g/dL HDL Cholesterol 64.0 H (40.0-60.0) mg/dL 04/13/21 04/13/21 04/13/21 Range/Units 07:05 12:14 17:34 RBC (4.10-5.20) X 10*6/uL Hgb (12.0-15.0) g/dL Hct (37.2-46.3) % Immature Gran # (0.00-0.04) X 10*3/uL Sodium (135-145) mmol/L Glucose (70-110) mg/dL POC Glucose (mg/dL) 133 H 147 H 168 H (75-99) mg/dL Calcium (8.7-10.3) mg/dL Total Protein (6.2-8.2) g/dL Albumin (3.80-4.90) g/dL HDL Cholesterol (40.0-60.0) mg/dL Assessment and Plan Assessment: Chest pain Hyponatremia GERD/reflux Coronary artery disease History of CVA/TIA Diabetes mellitus type 2 Hard of hearing Hypertension Dyslipidemia History of myocardial infarction History of recent pneumonia Hypothyroidism History of coronary artery disease with stent placement DO NOT RESUSCITATE Plan: Chest pain, unstable angina ruled out troponins negative 3 no acute EKG changes recent echocardiogram done Hyponatremia, resolving with isotonic IV fluids Continue home medications Continue medical management Further recommendations to come based on patient's clinical condition Hopeful discharge in 24 hours Time with Patient: Greater than 30
[2021-04-13 19:47] LABS: Glucose,Whole Blood 214 mg/dL (75-99)
[2021-04-13] MEDS: FLUTICASONE 50MCG/SPRAY NASAL 16GM EA NOSTRIL SCH (22:48)
[2021-04-13] MEDS: GABAPENTIN 100 MG CAP PO SCH (22:49)
[2021-04-13] MEDS: ALPRAZolam 0.25 MG TAB PO PRN (22:57)
[2021-04-14 03:09] VITALS: TEMP 97.6
[2021-04-14] MEDS: LEVOTHYROXINE 88 MCG TAB PO SCH (06:33)
[2021-04-14 07:20] LABS: Glucose,Whole Blood 152 mg/dL (75-99)
[2021-04-14 07:51] VITALS: BP 139/74; PULSE 67; RESP 18
[2021-04-14] MEDS: INSULIN ASPART (NovoLOG) 100 UNIT/ML VIAL SQ SCH ×2 (08:30→13:05)
[2021-04-14] MEDS: amLODIPine 5 MG TAB PO SCH (08:31)
[2021-04-14] MEDS: CLOPIDOGREL 75 MG TAB PO SCH (08:32)
[2021-04-14] MEDS: CHOLECALCIFEROL 25 MCG (1000 IU) TABLET PO SCH (08:32)
[2021-04-14] MEDS: LOSARTAN 50 MG TAB PO SCH (08:33)
[2021-04-14] MEDS: PANTOPRAZOLE 40 MG/10 ML VIAL IVP SCH (08:33)
[2021-04-14] MEDS: FUROSEMIDE 40 MG TAB PO SCH (08:33)
[2021-04-14] MEDS: ATORVASTATIN 40 MG TAB PO SCH (08:33)
[2021-04-14] MEDS: VIT A,C & E-LUTEIN-MINERALS 1 EACH TAB PO SCH (08:37)
[2021-04-14] MEDS: ISOSORBIDE MONONITRATE ER 60 MG TAB.ER.24H PO SCH (08:37)
[2021-04-14 08:48] LABS: Basophils # (A) 0.06 X 10*3/uL (0.00-0.10); Basophils % (A) 0.7 %; Eosinophils # (A) 0.14 X 10*3/uL (0.04-0.35); Eosinophils % (A) 1.7 %; HCT 33.8 % (37.2-46.3); HGB 11.3 g/dL (12.0-15.0); Lymphocytes # (A) 2.33 X 10*3/uL (0.90-5.00); Lymphocytes % (A) 28.6 %; MCH 29.8 pg (27.0-32.0); MCHC 33.4 g/dL (32.0-37.0); MCV 89.2 fL (80.0-97.0); Mean Platelet Volume 9.9 fL (9.5-12.2); Monocytes # (A) 0.78 X 10*3/uL (0.20-1.00); Monocytes % (A) 9.6 %; Neutrophils # (A) 4.79 X 10*3/uL (1.80-7.70); Neutrophils % (A) 58.8 %; Platelet Count 288 X 10*3/uL (140-440); RBC 3.79 X 10*6/uL (4.10-5.20); RDW 13.5 % (11.5-14.5); WBC 8.15 X 10*3/uL (4.50-10.00)
[2021-04-14] MEDS ORDERED: FAMOTIDINE 20 MG TAB PO SCH (09:00)
[2021-04-14] MEDS ORDERED: ASPIRIN 81 MG PO SCH (09:00)
[2021-04-14 09:57] LABS: African American GFR (CKD) 66.6 (60.0-200.0); Albumin 3.9 g/dL (3.80-4.90); Albumin/Globulin Ratio 1.95 (1.60-3.17); Anion Gap 7.2 mmol/L (4.00-12.00); BUN/Creat Ratio 18.89 Ratio (12.00-20.00); Calcium 8.1 mg/dL (8.7-10.3); Carbon Dioxide 29.8 mmol/L (21.6-31.8); Non-African American GFR(CKD) 57.5 (60.0-200.0); Potassium 4.6 mmol/L (3.5-5.5); Total Bilirubin 0.4 mg/dL (0.2-1.2); Total Protein 5.9 g/dL (6.2-8.2)
[2021-04-14 12:06] LABS: Glucose,Whole Blood 222 mg/dL (75-99)
--- NOTE | 2021-04-15 06:50 | P.DS ---
Providers Date of admission: 04/13/21 13:53 Expected date of discharge: 04/14/21 Attending physician: Anthony Cameron Consults: 04/12/21 07:58 Consult Physician Urgent Consulting Provider: Antonio Treadwell Consult Reason/Comments: chest pain Do you want consulting provider notified?: Yes Primary care physician: Anthony Cameron Hospital Course: 85-year-old female with past medical history of coronary artery disease, history of CVA/TIA, diabetes mellitus type 2, GERD/reflux, hypertension, dyslipidemia, and an multiple comorbidities was admitted to the hospital for chest pain rule out unstable angina, and hyponatremia. Patient initial EKG no acute changes, troponins negative, mild hyponatremia corrected with IV fluids. Consultation with cardiology for expert opinion and recommendations, acute cardiac event ruled out with troponins, serial EKGs, and passed echocardiogram. Patient tolerated hospital stay well of chest discomfort or shortness of breath during hospital stay.. Patient will be discharged with guarded prognosis Assessment: Chest pain Hyponatremia GERD/reflux Coronary artery disease History of CVA/TIA Diabetes mellitus type 2 Hard of hearing Hypertension Dyslipidemia History of myocardial infarction History of recent pneumonia Hypothyroidism History of coronary artery disease with stent placement DO NOT RESUSCITATE Final diagnosis Chest pain, cardiac event ruled out Hyponatremia, resolved with isotonic IV fluids Health Concerns: Multiple comorbidities Complexity of medical treatment plan Pertinent Studies: Chest x-ray, no acute cardiopulmonary processes noted Procedures: No procedures performed during hospital stay Patient Condition at Discharge: Fair Plan - Discharge Summary New Discharge Prescriptions: New Nitroglycerin Sl Tabs [Nitrostat] 0.4 mg SUBLINGUAL Q5M PRN tab PRN Reason: Chest Pain Continue Vits A,C,E/Lutein/Minerals [Ocuvite with Lutein Tablet] 2 tab PO DAILY Cholecalciferol [Vitamin D3 (25 Mcg = 1000 Iu)] 1,000 unit PO DAILY Levothyroxine Sodium [Synthroid] 88 mcg PO DAILY ALPRAZolam [Xanax] 0.25 mg PO DAILY PRN #30 PRN Reason: Anxiety metFORMIN HCL [Glucophage] 500 mg PO BID Glimepiride [Amaryl] 1 mg PO DAILY Acetaminophen with Codeine [Tylenol w/codeine #3] 0.5 tab PO Q6H PRN PRN Reason: Pain amLODIPine [Norvasc] 5 mg PO BID #60 tab Isosorbide Mononitrate ER [Imdur] 60 mg PO DAILY #30 tab.er.24h Gabapentin [Neurontin] 100 mg PO HS Losartan [Cozaar] 100 mg PO DAILY Clopidogrel [Plavix] 75 mg PO DAILY #30 tab Atorvastatin [Lipitor] 40 mg PO DAILY Fluticasone Nasal Patterson [Flonase Nasal Patterson] 2 spr EA NOSTRIL DAILY Albuterol Inhaler [Ventolin Hfa Inhaler] 2 puff INHALATION RT-Q4H PRN PRN Reason: Shortness Of Breath Esomeprazole Magnesium [NexIUM 24Hr] 20 mg PO DAILY Furosemide [Lasix] 40 mg PO DAILY Changed Aspirin EC [Ecotrin Low Dose] 81 mg PO ONCE #0 Discontinued Famotidine [Pepcid] 20 mg PO BID #14 tablet Aspirin 325 mg PO HS Discharge Medication List Cholecalciferol [Vitamin D3 (25 Mcg = 1000 Iu)] 1,000 unit PO DAILY 05/03/16 [History] Vits A,C,E/Lutein/Minerals [Ocuvite with Lutein Tablet] 2 tab PO DAILY 05/03/16 [History] Levothyroxine Sodium [Synthroid] 88 mcg PO DAILY 05/31/17 [History] ALPRAZolam [Xanax] 0.25 mg PO DAILY PRN #30 06/05/17 [Rx] Glimepiride [Amaryl] 1 mg PO DAILY 04/28/18 [History] metFORMIN HCL [Glucophage] 500 mg PO BID 04/28/18 [History] Acetaminophen with Codeine [Tylenol w/codeine #3] 0.5 tab PO Q6H PRN 09/25/18 [History] amLODIPine [Norvasc] 5 mg PO BID #60 tab 10/21/18 [Rx] Isosorbide Mononitrate ER [Imdur] 60 mg PO DAILY #30 tab.er.24h 01/09/19 [Rx] Gabapentin [Neurontin] 100 mg PO HS 05/25/20 [History] Losartan [Cozaar] 100 mg PO DAILY 05/25/20 [History] Clopidogrel [Plavix] 75 mg PO DAILY #30 tab 05/28/20 [Rx] Albuterol Inhaler [Ventolin Hfa Inhaler] 2 puff INHALATION RT-Q4H PRN 03/26/21 [History] Atorvastatin [Lipitor] 40 mg PO DAILY 03/26/21 [History] Esomeprazole Magnesium [NexIUM 24Hr] 20 mg PO DAILY 03/26/21 [History] Fluticasone Nasal Patterson [Flonase Nasal Patterson] 2 spr EA NOSTRIL DAILY 03/26/21 [History] Furosemide [Lasix] 40 mg PO DAILY 03/26/21 [History] Aspirin EC [Ecotrin Low Dose] 81 mg PO ONCE #0 04/14/21 [Rx] Nitroglycerin Sl Tabs [Nitrostat] 0.4 mg SUBLINGUAL Q5M PRN tab 04/14/21 [Rx] Follow up Appointment(s)/Referral(s): Anthony Cameron MD [Primary Care Provider] - 04/16/21 11:30 am Patient Instructions/Handouts: Chest Pain (GEN), Hyponatremia (IP) Discharge Disposition: HOME SELF-CARE
== END 2021-04-14 13:45 | disposition home or self-care (01) | DRG 313 ==
LOC: EC 06:00 → 6NMEDSUR 08:45 → OBSVTOIN 04-13 13:53
PROVIDERS: ADMIT Family Medicine; ATTEND Family Medicine
DX: R07.9 Chest pain, unspecified (principal); E87.1 Hypo-osmolality and hyponatremia; E11.9 Type 2 diabetes mellitus without complications; E78.5 Hyperlipidemia, unspecified; E89.0 Postprocedural hypothyroidism; H54.8 Legal blindness, as defined in USA; H91.90 Unspecified hearing loss, unspecified ear; I10 Essential (primary) hypertension; I25.10 Atherosclerotic heart disease of native coronary artery without angina pectoris; I25.2 Old myocardial infarction; I45.10 Unspecified right bundle-branch block; I69.398 Other sequelae of cerebral infarction; H53.8 Other visual disturbances; Z87.891 Personal history of nicotine dependence; I65.29 Occlusion and stenosis of unspecified carotid artery; K21.9 Gastro-esophageal reflux disease without esophagitis; M19.041 Primary osteoarthritis, right hand; M19.042 Primary osteoarthritis, left hand; T78.3XXA Angioneurotic edema, initial encounter; M47.9 Spondylosis, unspecified; M19.09 Primary osteoarthritis, other specified site; H35.30 Unspecified macular degeneration; Z66 Do not resuscitate; Z79.02 Long term (current) use of antithrombotics/antiplatelets; Z79.82 Long term (current) use of aspirin; Z79.84 Long term (current) use of oral hypoglycemic drugs; Z79.890 Hormone replacement therapy; Z79.899 Other long term (current) drug therapy; Z87.01 Personal history of pneumonia (recurrent); Z82.49 Family history of ischemic heart disease and other diseases of the circulatory system; Z95.5 Presence of coronary angioplasty implant and graft; Z90.710 Acquired absence of both cervix and uterus; Z98.51 Tubal ligation status; Z98.890 Other specified postprocedural states
CPT/HCPCS: 36415; 71046; 80053; 80061; 81003; 83690; 83735; 83930; 83935; 84484; 85025; 85610; 85730; 93005; 96361; 96374; 99285

== ENCOUNTER 2021-07-19 13:37 | Emergency (ER) | payer MEDICARE, BC ==
[2021-07-19 15:47] VITALS: TEMP 97.6
[2021-07-19] MEDS ORDERED: ONDANSETRON 4 MG/2 ML VIAL IVP STA (17:12)
[2021-07-19] MEDS ORDERED: SODIUM CHLORIDE 0.9% 500 ML 500 ML IV STA (17:12)
[2021-07-19 17:46] LABS: Basophils % (A) 1 %; Eosinophils # (A) 0.1 k/uL (0-0.7); Eosinophils % (A) 1 %; HGB 13.6 gm/dL (11.4-16.0); Lymphocytes # (A) 1.4 k/uL (1.0-4.8); Lymphocytes % (A) 28 %; MCV 88.2 fL (80.0-100.0); Mean Platelet Volume 8.2; Monocytes # (A) 0.4 k/uL (0-1.0); Monocytes % (A) 7 %; Neutrophils # (A) 3.1 k/uL (1.3-7.7); Neutrophils % (A) 62 %; Platelet Count 265 k/uL (150-450); RBC 4.53 m/uL (3.80-5.40); RDW 12.2 % (11.5-15.5)
[2021-07-19 18:00] LABS: Albumin 4.5 g/dL (3.5-5.0); Calcium 8.5 mg/dL (8.4-10.2); Potassium 4.6 mmol/L (3.5-5.1); Total Bilirubin 0.2 mg/dL (0.2-1.3); Total Protein 7.4 g/dL (6.3-8.2)
[2021-07-19 18:03] LABS: INR 0.9 (<1.2); Partial Thromboplastin Time 25.2 sec (22.0-30.0); Prothrombin Time 9.5 sec (9.0-12.0)
[2021-07-19 18:41] LABS: Appearance,Urine Clear (Clear); Bilirubin,Urine Negative (Negative); Blood,Urine Negative (Negative); Color,Urine Light Yellow; Glucose,Urine (UA) Negative (Negative); Ketones,Urine Negative (Negative); Leukocyte Esterase,Urine Negative (Negative); Nitrite,Urine Negative (Negative); PH, Urine 6.5 (5.0-8.0); Protein,Urine Negative (Negative); Specific Gravity,Urine 1.003 (1.001-1.035); Urobilinogen,Urine <2.0 mg/dL (<2.0)
--- NOTE | 2021-07-19 19:24 | ED ---
Abdominal Pain HPI - General Chief Complaint: Abdominal Pain Stated Complaint: Nausea/Abd Pain/Weakness Time Seen by Provider: 07/19/21 16:40 Source: patient, family Mode of arrival: wheelchair Limitations: no limitations - History of Present Illness Initial Comments: 86-year-old female with multiple comorbid conditions presents to the emergency department with reported lower abdominal pain, nausea and vomiting. Patient states that she has had these symptoms for the past week and a half. Symptoms started after she was placed on antibiotics for a sinus infection. Patient is currently taking Augmentin to Dr. Cameron's office. She has had such bad diarrhea that she was up all night. She took an antacid for her symptoms. She denies any fevers. No history of C. diff. Denies any black or bloody stools. No history of GI bleeding. No history of peptic ulcer disease. She admits to lower abdominal cramping. No previous history of any abdominal surgeries. No numbness, tingling or weakness into her legs. No other alleviating, precipitating or modifying factors - Related Data Home Medications Medication Instructions Recorded Confirmed Vits A,C,E/Lutein/Minerals 1 tab PO BID 05/03/16 07/19/21 [Ocuvite with Lutein Tablet] Levothyroxine Sodium [Synthroid] 88 mcg PO DAILY 05/31/17 07/19/21 Glimepiride [Amaryl] 1 mg PO DAILY 04/28/18 07/19/21 metFORMIN HCL [Glucophage] 500 mg PO BID 04/28/18 07/19/21 Acetaminophen with Codeine 0.5 - 1 tab PO Q6H PRN 09/25/18 07/19/21 [Tylenol w/codeine #3] Gabapentin [Neurontin] 100 mg PO HS 05/25/20 07/19/21 Losartan [Cozaar] 50 mg PO BID 05/25/20 07/19/21 Atorvastatin [Lipitor] 40 mg PO DAILY 03/26/21 07/19/21 Furosemide [Lasix] 20 mg PO BID 03/26/21 07/19/21 Amoxicillin/Potassium Clav 1 tab PO Q12H 07/19/21 07/19/21 [Augmentin 875-125 Tablet] Aspirin EC [Ecotrin Low Dose] 81 mg PO DAILY 07/19/21 07/19/21 Cholecalciferol [Vitamin D3 (10 10 mcg PO DAILY 07/19/21 07/19/21 Mcg = 400 Iu)] Famotidine 20 mg PO BID 07/19/21 07/19/21 Isosorbide Mononitrate ER [Imdur] 60 mg PO DAILY 07/19/21 07/19/21 Metoprolol Tartrate [Lopressor] 50 mg PO BID 07/19/21 07/19/21 amLODIPine [Norvasc] 5 mg PO DAILY 07/19/21 07/19/21 Previous Rx's Medication Instructions Recorded ALPRAZolam [Xanax] 0.25 mg PO DAILY PRN #30 06/05/17 Clopidogrel [Plavix] 75 mg PO DAILY #30 tab 05/28/20 Dicyclomine [Bentyl] 20 mg PO TID PRN #20 tablet 07/19/21 Ondansetron Odt [Zofran Odt] 4 mg PO Q8HR PRN #10 tab 07/19/21 Allergies Allergy/AdvReac Type Severity Reaction Status Date / Time aspartame Allergy Severe Swelling Verified 07/19/21 19:15 PAPER TAPE AdvReac Unknown Rash/Hives Uncoded 07/19/21 15:47 Review of Systems ROS Statement: Those systems with pertinent positive or pertinent negative responses have been documented in the HPI. ROS Other: All systems not noted in ROS Statement are negative. 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 Last Myocardial Infarction Date:: 09/2018 History of Any Multi-Drug Resistant Organisms: None Reported Past Surgical History: Back Surgery, Breast Surgery, Heart Catheterization With Stent, Hysterectomy, Orthopedic Surgery, Tubal Ligation Additional Past Surgical History / Comment(s): PCI with a total of 7 stents, low back surgery, L breast benign bx, R rotator cuff repair, R eye cataract removed, multiple bilateral laser eye surgeries, bilateral eye stents-R one fell out, thyroidectomy d/t nodules, temporal artery bx, cervical and lumbar injections. Past Anesthesia/Blood Transfusion Reactions: Previous Problems w/ Anesthesia Additional Past Anesthesia/Blood Transfusion Reaction / Comment(s): hard to wake up Date of Last Stent Placement:: 10/19/18 Past Psychological History: Anxiety Smoking Status: Never smoker Past Alcohol Use History: None Reported Past Drug Use History: None Reported - Past Family History Mother Family Medical History: Myocardial Infarction ([place]) Additional Family Medical History / Comment(s): MOTHER OF A [place] AT THE AGE OF 57YRS. Brother(s) Family Medical History: Myocardial Infarction ([place]) Additional Family Medical History / Comment(s): BROTHER OF A [place] AT THE AGE OF 60YRS. Father Family Medical History: No Reported History Additional Family Medical History / Comment(s): FATHER LIVED TO BE 90YRS OLD. General Exam Limitations: no limitations General appearance: alert, in no apparent distress Head exam: Present: atraumatic, normocephalic, normal inspection Eye exam: Present: normal appearance, PERRL, EOMI. Absent: scleral icterus, conjunctival injection, periorbital swelling ENT exam: Present: normal exam, mucous membranes moist Neck exam: Present: normal inspection. Absent: tenderness, meningismus, lymphadenopathy Respiratory exam: Present: normal lung sounds bilaterally. Absent: respiratory distress, wheezes, rales, rhonchi, stridor Cardiovascular Exam: Present: regular rate, normal rhythm, normal heart sounds. Absent: systolic murmur, diastolic murmur, rubs, gallop, clicks GI/Abdominal exam: Present: soft, tenderness (llq and rlq), normal bowel sounds. Absent: distended, guarding, rebound, rigid Extremities exam: Present: normal inspection, full ROM, normal capillary refill. Absent: tenderness, pedal edema, joint swelling, calf tenderness Back exam: Present: normal inspection Neurological exam: Present: alert, oriented X3, CN II-XII intact Psychiatric exam: Present: normal affect, normal mood Skin exam: Present: warm, dry, intact, normal color. Absent: rash Course Vital Signs 07/19/21 07/19/21 15:39 20:45 Temperature 97.6 F Pulse Rate 66 82 Respiratory 18 16 Rate Blood Pressure 119/62 172/74 O2 Sat by Pulse 100 96 Oximetry Medical Decision Making - Medical Decision Making Upon arrival patient was placed into room 24. Thorough history and physical exam was performed. IV is established and the patient is given a 500 bolus of normal saline and 4 mg of Zofran for nausea. Laboratory studies are conducted reviewed. Sodium mildly low at 131. I did CT the patient's abdomen and pelvis due to her report of abdominal pain which demonstrates no acute process. I did discuss results with the patient. She has not had a bowel movement in the emergency department. Patient is given a Bentyl for her abdominal cramping. I did offer admission however the patient states that she would prefer to go home. I recommended that she follow up with Dr. Cameron within 2-4 days for reevaluation. She will be given prescriptions for Bentyl and Zofran for at home. Patient is also provided with a hat and container for a stool sample. She is instructed to take the stool sample into her primary care office for further testing. Return to the emergency room for any new or worsening symptoms. I did speak with Nehemiah Solis on the phone about the patient. Patient discharged home in stable condition - Lab Data Result diagrams: 07/19/21 17:38 07/19/21 17:38 Lab Results 07/19/21 07/19/21 07/19/21 Range/Units 17:38 17:38 17:38 WBC 5.0 (3.8-10.6) k/uL RBC 4.53 (3.80-5.40) m/uL Hgb 13.6 (11.4-16.0) gm/dL Hct 40.0 (34.0-46.0) % MCV 88.2 (80.0-100.0) fL MCH 30.0 (25.0-35.0) pg MCHC 34.0 (31.0-37.0) g/dL RDW 12.2 (11.5-15.5) % Plt Count 265 (150-450) k/uL MPV 8.2 Neutrophils % 62 % Lymphocytes % 28 % Monocytes % 7 % Eosinophils % 1 % Basophils % 1 % Neutrophils # 3.1 (1.3-7.7) k/uL Lymphocytes # 1.4 (1.0-4.8) k/uL Monocytes # 0.4 (0-1.0) k/uL Eosinophils # 0.1 (0-0.7) k/uL Basophils # 0.0 (0-0.2) k/uL PT (9.0-12.0) sec INR (<1.2) APTT (22.0-30.0) sec Sodium 131 L (137-145) mmol/L Potassium 4.6 (3.5-5.1) mmol/L Chloride 93 L (98-107) mmol/L Carbon Dioxide 24 (22-30) mmol/L Anion Gap 14 mmol/L BUN 17 (7-17) mg/dL Creatinine 0.73 (0.52-1.04) mg/dL Est GFR (CKD-EPI)AfAm 85 (>60 ml/min/1.73 sqM) Est GFR (CKD-EPI)NonAf 74 (>60 ml/min/1.73 sqM) Glucose 147 H (74-99) mg/dL Plasma Lactic Acid German (0.7-2.0) mmol/L Calcium 8.5 (8.4-10.2) mg/dL Total Bilirubin 0.2 (0.2-1.3) mg/dL AST 24 (14-36) U/L ALT 18 (4-34) U/L Alkaline Phosphatase 199 H (38-126) U/L Troponin I (0.000-0.034) ng/mL Total Protein 7.4 (6.3-8.2) g/dL Albumin 4.5 (3.5-5.0) g/dL Lipase 82 (23-300) U/L Urine Color Light Yellow Urine Appearance Clear (Clear) Urine pH 6.5 (5.0-8.0) Ur Specific [place] 1.003 (1.001-1.035) Urine Protein Negative (Negative) Urine Glucose (UA) Negative (Negative) Urine Ketones Negative (Negative) Urine Blood Negative (Negative) Urine Nitrite Negative (Negative) Urine Bilirubin Negative (Negative) Urine Urobilinogen <2.0 (<2.0) mg/dL Ur Leukocyte Esterase Negative (Negative) 07/19/21 07/19/21 07/19/21 Range/Units 17:38 17:38 17:38 WBC (3.8-10.6) k/uL RBC (3.80-5.40) m/uL Hgb (11.4-16.0) gm/dL Hct (34.0-46.0) % MCV (80.0-100.0) fL MCH (25.0-35.0) pg MCHC (31.0-37.0) g/dL RDW (11.5-15.5) % Plt Count (150-450) k/uL MPV Neutrophils % % Lymphocytes % % Monocytes % % Eosinophils % % Basophils % % Neutrophils # (1.3-7.7) k/uL Lymphocytes # (1.0-4.8) k/uL Monocytes # (0-1.0) k/uL Eosinophils # (0-0.7) k/uL Basophils # (0-0.2) k/uL PT 9.5 (9.0-12.0) sec INR 0.9 (<1.2) APTT 25.2 (22.0-30.0) sec Sodium (137-145) mmol/L Potassium (3.5-5.1) mmol/L Chloride (98-107) mmol/L Carbon Dioxide (22-30) mmol/L Anion Gap mmol/L BUN (7-17) mg/dL Creatinine (0.52-1.04) mg/dL Est GFR (CKD-EPI)AfAm (>60 ml/min/1.73 sqM) Est GFR (CKD-EPI)NonAf (>60 ml/min/1.73 sqM) Glucose (74-99) mg/dL Plasma Lactic Acid German 1.8 (0.7-2.0) mmol/L Calcium (8.4-10.2) mg/dL Total Bilirubin (0.2-1.3) mg/dL AST (14-36) U/L ALT (4-34) U/L Alkaline Phosphatase (38-126) U/L Troponin I <0.012 (0.000-0.034) ng/mL Total Protein (6.3-8.2) g/dL Albumin (3.5-5.0) g/dL Lipase (23-300) U/L Urine Color Urine Appearance (Clear) Urine pH (5.0-8.0) Ur Specific [place] (1.001-1.035) Urine Protein (Negative) Urine Glucose (UA) (Negative) Urine Ketones (Negative) Urine Blood (Negative) Urine Nitrite (Negative) Urine Bilirubin (Negative) Urine Urobilinogen (<2.0) mg/dL Ur Leukocyte Esterase (Negative) - EKG Data EKG Comments: EKG demonstrates a sinus rhythm with a ventricular rate of 72. CT interval 126. QRS 116. QTC of 473. No acute ST segment elevations or depressions. Right bundle branch block Disposition Clinical Impression: Abdominal pain, Nausea and vomiting, Hyponatremia Disposition: HOME SELF-CARE Condition: Stable Instructions (If sedation given, give patient instructions): Acute Diarrhea (ED) Additional Instructions: Please collect a stool sample and return to your primary care office. Take the Zofran as needed for nausea and the Bentyl as needed for abdominal cramping. Return to the emergency room for any new or worsening symptoms Prescriptions: Dicyclomine [Bentyl] 20 mg PO TID PRN #20 tablet PRN Reason: Diarrhea Ondansetron Odt [Zofran Odt] 4 mg PO Q8HR PRN #10 tab PRN Reason: Nausea Is patient prescribed a controlled substance at d/c from ED?: No Referrals: Anthony Cameron MD [Primary Care Provider] - 1-2 days Time of Disposition: 21:17
--- NOTE | 2021-07-19 20:11 | CT ---
EXAMINATION TYPE: CT abdomen pelvis w con DATE OF EXAM: 07/19/2021 COMPARISON: 05/03/2016 HISTORY: Abdominal pain, nausea, weakness CT DLP: 1170.8 mGycm Automated exposure control for dose reduction was used. CONTRAST: Performed with IV Contrast, patient injected with 100 mL of Isovue 300. Images obtained from the diaphragm to the floor the pelvis with IV contrast. There is some patchy interstitial infiltrate and atelectasis at the lung bases. There is hiatal herni a. Heart size is normal. There is no pericardial effusion. There is coronary artery dense calcificati on. Liver and spleen are intact. The bile ducts are not dilated. Gallbladder appears normal. There is no pancreatic mass. The stomach is intact. There is no adrenal mass. Kidneys show satisfactory contrast opacification. There is no hydronephrosi s. Ureters are not dilated. Bladder distends smoothly. There is no inguinal hernia. Delayed images sh ow normal renal excretion. There is no retroperitoneal adenopathy. Abdominal aorta is atheromatous. A ppendix is normal. There is no mesenteric edema. There is no ascites or free air. There is no sign of a bowel obstructio n. Bladder distends smoothly. There is no inguinal hernia. There is no evidence of a pelvic mass. The re are a few sigmoid diverticula. There is no diverticulitis. There are spondylotic changes in the lumbar spine. There is a mild first-degree L3-4 spondylolisthesi s. There is slight lumbar levoscoliosis. There is moderate spinal stenosis at L4-5. There is no compr ession fracture. The bony pelvis is intact. The hip joints are intact. Sacroiliac joints are intact. IMPRESSION: Atherosclerotic vascular disease. No acute abnormality in the abdomen pelvis. Sigmoid diverticulosis. Mild fibrotic changes and subsegmental atelectasis at the lung bases. This appears mostly new compare d to old exam. L4-5 moderate bony spinal stenosis.
[2021-07-19 20:46] VITALS: BP 172/74; PULSE 82; RESP 16
[2021-07-19] MEDS ORDERED: DICYCLOMINE 10 MG CAP PO STA (21:11)
[2021-07-19] MEDS ORDERED: ONDANSETRON 4 MG ODT STARTER PACK 2 TAB BTL PO STA (21:14)
== END 2021-07-19 21:29 | disposition home or self-care (01) ==
LOC: EC 13:37
DX: E87.1 Hypo-osmolality and hyponatremia (principal); R11.2 Nausea with vomiting, unspecified; E11.9 Type 2 diabetes mellitus without complications; I10 Essential (primary) hypertension; M19.90 Unspecified osteoarthritis, unspecified site; E07.9 Disorder of thyroid, unspecified; H91.90 Unspecified hearing loss, unspecified ear; E78.5 Hyperlipidemia, unspecified; I25.2 Old myocardial infarction; I25.10 Atherosclerotic heart disease of native coronary artery without angina pectoris; Z79.84 Long term (current) use of oral hypoglycemic drugs; Z79.4 Long term (current) use of insulin; Z79.899 Other long term (current) drug therapy; Z86.73 Personal history of transient ischemic attack (TIA), and cerebral infarction without residual deficits; Z91.09 Other allergy status, other than to drugs and biological substances; Z95.5 Presence of coronary angioplasty implant and graft; Z79.890 Hormone replacement therapy; Z88.8 Allergy status to other drugs, medicaments and biological substances
CPT/HCPCS: 36415; 93005; 80053; 83605; 83690; 84484; 85025; 85610; 85730; 81003; 74177; 99285; 96374; 96361; J2405; S0119; Q9967

== ENCOUNTER → 2021-08-30 | Outpatient (CLI) | payer MEDICARE, BC ==
--- NOTE | 2021-08-30 09:46 | XR ---
EXAMINATION TYPE: XR foot complete LT DATE OF EXAM: 08/30/2021 CLINICAL HISTORY: Pain from fall injury one week ago. TECHNIQUE: Frontal, lateral, and oblique images of the left foot are obtained. COMPARISON: None FINDINGS: There is no acute fracture/dislocation evident in the left foot. Hallux valgus positioning first metatarsophalangeal joint. Marked flexion in the toes or hammertoe type deformity second throu gh fifth toes is noted. Nonspecific periosteal reaction along the lateral aspect of the fourth metata rsal. Small to moderate size inferior calcaneal spur. Mild Diffuse soft tissue swelling is present. IMPRESSION: As above.
== END | disposition home or self-care (01) ==
LOC: RADXRMAIN 09:10
PROVIDERS: ATTEND Family Medicine
DX: M77.32 Calcaneal spur, left foot (principal)

== ENCOUNTER 2021-12-20 08:08 | Emergency (ER) | payer MEDICARE, BC ==
[2021-12-20 14:33] LABS: Basophils # (A) 0.1 k/uL (0-0.2); Basophils % (A) 1 %; Eosinophils # (A) 0.4 k/uL (0-0.7); Eosinophils % (A) 5 %; HCT 39.9 % (34.0-46.0); HGB 13.2 gm/dL (11.4-16.0); Lymphocytes # (A) 1.9 k/uL (1.0-4.8); Lymphocytes % (A) 26 %; MCH 30.2 pg (25.0-35.0); MCHC 33.2 g/dL (31.0-37.0); MCV 90.9 fL (80.0-100.0); Mean Platelet Volume 7.5; Monocytes # (A) 0.5 k/uL (0-1.0); Monocytes % (A) 6 %; Neutrophils # (A) 4.3 k/uL (1.3-7.7); Neutrophils % (A) 59 %; Platelet Count 314 k/uL (150-450); RBC 4.39 m/uL (3.80-5.40); RDW 12.9 % (11.5-15.5); WBC 7.4 k/uL (3.8-10.6)
--- NOTE | 2021-12-20 14:35 | ED ---
General Adult HPI - History of Present Illness Initial comments: Patient was treated, evaluated and dispositioned via paper charts due to unexpected EMR down time. Please see. Chart for further detail. Briefly, patient is 78-year-old male presents with perioral symmetrical bilateral paresthesias and left foot pain. Patient denies any trauma to her left foot. Physical examination is benign. Patient has no focal neurologic deficits. Ultrasound of the lower extremity did not show any evidence for DVT or any other acute abnormalities. Patient does not have any focal findings. Her labs are unremarkable. No electrolyte derangement. Patient treated with analgesics. She is discharged and advised follow-up with primary care doctor. - Related Data Home Medications Medication Instructions Recorded Confirmed Vits A,C,E/Lutein/Minerals 1 tab PO BID 05/03/16 07/19/21 [Ocuvite with Lutein Tablet] Levothyroxine Sodium [Synthroid] 88 mcg PO DAILY 05/31/17 07/19/21 Glimepiride [Amaryl] 1 mg PO DAILY 04/28/18 07/19/21 metFORMIN HCL [Glucophage] 500 mg PO BID 04/28/18 07/19/21 Acetaminophen with Codeine 0.5 - 1 tab PO Q6H PRN 09/25/18 07/19/21 [Tylenol w/codeine #3] Gabapentin [Neurontin] 100 mg PO HS 05/25/20 07/19/21 Losartan [Cozaar] 50 mg PO BID 05/25/20 07/19/21 Atorvastatin [Lipitor] 40 mg PO DAILY 03/26/21 07/19/21 Furosemide [Lasix] 20 mg PO BID 03/26/21 07/19/21 Amoxicillin/Potassium Clav 1 tab PO Q12H 07/19/21 07/19/21 [Augmentin 875-125 Tablet] Aspirin EC [Ecotrin Low Dose] 81 mg PO DAILY 07/19/21 07/19/21 Cholecalciferol [Vitamin D3 (10 10 mcg PO DAILY 07/19/21 07/19/21 Mcg = 400 Iu)] Famotidine 20 mg PO BID 07/19/21 07/19/21 Isosorbide Mononitrate ER [Imdur] 60 mg PO DAILY 07/19/21 07/19/21 Metoprolol Tartrate [Lopressor] 50 mg PO BID 07/19/21 07/19/21 amLODIPine [Norvasc] 5 mg PO DAILY 07/19/21 07/19/21 Previous Rx's Medication Instructions Recorded ALPRAZolam [Xanax] 0.25 mg PO DAILY PRN #30 06/05/17 Clopidogrel [Plavix] 75 mg PO DAILY #30 tab 05/28/20 Dicyclomine [Bentyl] 20 mg PO TID PRN #20 tablet 07/19/21 Ondansetron Odt [Zofran Odt] 4 mg PO Q8HR PRN #10 tab 07/19/21 Allergies Allergy/AdvReac Type Severity Reaction Status Date / Time aspartame Allergy Severe Swelling Verified 07/19/21 19:15 PAPER TAPE AdvReac Unknown Rash/Hives Uncoded 07/19/21 15:47 Review of Systems ROS Statement: Those systems with pertinent positive or pertinent negative responses have been documented in the HPI. ROS Other: All systems not noted in ROS Statement are negative. 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 Last Myocardial Infarction Date:: 09/2018 History of Any Multi-Drug Resistant Organisms: None Reported Past Surgical History: Back Surgery, Breast Surgery, Heart Catheterization With Stent, Hysterectomy, Orthopedic Surgery, Tubal Ligation Additional Past Surgical History / Comment(s): PCI with a total of 7 stents, low back surgery, L breast benign bx, R rotator cuff repair, R eye cataract removed, multiple bilateral laser eye surgeries, bilateral eye stents-R one fell out, thyroidectomy d/t nodules, temporal artery bx, cervical and lumbar injections. Past Anesthesia/Blood Transfusion Reactions: Previous Problems w/ Anesthesia Additional Past Anesthesia/Blood Transfusion Reaction / Comment(s): hard to wake up Date of Last Stent Placement:: 10/19/18 Past Psychological History: Anxiety Smoking Status: Never smoker Past Alcohol Use History: None Reported Past Drug Use History: None Reported - Past Family History Mother Family Medical History: Myocardial Infarction ([place]) Additional Family Medical History / Comment(s): MOTHER OF A [place] AT THE AGE OF 57YRS. Brother(s) Family Medical History: Myocardial Infarction ([place]) Additional Family Medical History / Comment(s): BROTHER OF A [place] AT THE AGE OF 60YRS. Father Family Medical History: No Reported History Additional Family Medical History / Comment(s): FATHER LIVED TO BE 90YRS OLD. Disposition Clinical Impression: Left foot pain Disposition: HOME SELF-CARE Condition: Stable Is patient prescribed a controlled substance at d/c from ED?: No Referrals: Anthony Cameron MD [Primary Care Provider] - 1-2 days
[2021-12-20 14:40] LABS: Albumin 4.5 g/dL (3.5-5.0); Calcium 9.7 mg/dL (8.4-10.2); Magnesium 2.1 mg/dL (1.6-2.3); Phosphorus 4.8 mg/dL (2.5-4.5); Potassium 4.7 mmol/L (3.5-5.1); Total Bilirubin 0.8 mg/dL (0.2-1.3); Total Protein 7.7 g/dL (6.3-8.2)
[2021-12-20 15:17] LABS: INR 0.9 (<1.2); Partial Thromboplastin Time 25.7 sec (22.0-30.0); Prothrombin Time 10.1 sec (9.0-12.0)
--- NOTE | 2021-12-20 17:32 | US ---
EXAMINATION TYPE: US venous doppler duplex LE LT DATE OF EXAM: 12/20/2021 4:29 PM COMPARISON: CLINICAL HISTORY: Left leg pain. Left leg pain SIDE PERFORMED: Left TECHNIQUE: The lower extremity deep venous system is examined utilizing real time linear array sonog jace with graded compression, doppler sonography and color-flow sonography. VESSELS IMAGED: Common Femoral Vein Deep Femoral Vein Greater Saphenous Vein * Femoral Vein Popliteal Vein Small Saphenous Vein * Proximal Calf Veins (* superficial vessels) Left Leg: Appears negative for DVT IMPRESSION: No evidence of deep vein thrombosis in the left leg.
== END 2021-12-20 12:15 | disposition home or self-care (01) ==
LOC: EC 08:08
DX: M79.672 Pain in left foot (principal); E11.9 Type 2 diabetes mellitus without complications; Z86.73 Personal history of transient ischemic attack (TIA), and cerebral infarction without residual deficits; I25.10 Atherosclerotic heart disease of native coronary artery without angina pectoris; Z79.82 Long term (current) use of aspirin; I25.2 Old myocardial infarction; E07.9 Disorder of thyroid, unspecified; Z79.890 Hormone replacement therapy; Z88.8 Allergy status to other drugs, medicaments and biological substances; Z91.012 Allergy to eggs
CPT/HCPCS: 36415; 80053; 83735; 84100; 85025; 85610; 85730; 99284

== ENCOUNTER → 2022-01-11 | Outpatient (CLI) | payer MEDICARE, BC ==
--- NOTE | 2022-01-11 18:41 | XR ---
EXAMINATION TYPE: XR shoulder complete RT DATE OF EXAM: 01/11/2022 Comparison: None Clinical History: 86-year-old female M25.511 Pain right shoulder Findings: 7 mm corticated bone fragment along the lateral aspect of the acromion. There is bony irregularity at the greater tuberosity. Suggestion of mild to moderate eccentric joint space narrowing along the sup erior glenohumeral joint suggesting underlying degenerative change. No acute fracture, subluxation, o r dislocation. Impression: 1. Asymmetric joint space narrowing superior aspect of the glenohumeral joint suggests underlying ost eoarthrosis. 2. Chronic rotator cuff tendinopathy given bony irregularity at the greater tuberosity. 3. Possible loose body or chronically fragmented spurring measuring 7 mm along the lateral aspect of the acromion. This is indeterminate but raises the possibility of an underlying rotator cuff tear. If symptoms persist, consider MRI.
== END | disposition home or self-care (01) ==
LOC: RADXRMAIN 10:39
PROVIDERS: ATTEND Nurse Practitioner Family
DX: M25.511 Pain in right shoulder (principal)

== ENCOUNTER 2022-03-11 16:22 | Emergency (ER) | payer MEDICARE, BC ==
--- NOTE | 2022-03-11 16:56 | XR ---
EXAMINATION TYPE: XR abdomen 2V DATE OF EXAM: 03/11/2022 HISTORY: Pain. Technique: 2 views of the abdomen are submitted. Comparison: 01/29/2013 Findings: There is no convincing evidence of pneumoperitoneum. The Bowel gas pattern is nonspecific and nonobstructive. No significant constipation. No sizable air-fluid levels are seen. No mass effects are noted. No renal calcifications are identified. IMPRESSION: 1. Nonspecific nonobstructive bowel gas pattern
--- NOTE | 2022-03-11 18:31 | ED ---
General Adult HPI - General Chief complaint: Abdominal Pain Stated complaint: Constipation Time Seen by Provider: 03/11/22 18:19 Source: patient, RN notes reviewed Mode of arrival: ambulatory Limitations: no limitations - History of Present Illness Initial comments: Patient is a pleasant 86-year-old female presenting to the emergency department with concerns for constipation. Patient went several days without a bowel movement. Patient then took Maalox with a small bowel movement. Patient has not had a bowel movement again since that time. Patient does have some discomfort of her lower abdomen and a little bit the back. Patient feels a little bit nauseated. No vomiting. No fever. Patient has recently been taking Tylenol with codeine secondary to shoulder problems with her rotator cuff. No fevers. - Related Data Home Medications Medication Instructions Recorded Confirmed Vits A,C,E/Lutein/Minerals 1 tab PO BID 05/03/16 07/19/21 [Ocuvite with Lutein Tablet] Levothyroxine Sodium [Synthroid] 88 mcg PO DAILY 05/31/17 07/19/21 Glimepiride [Amaryl] 1 mg PO DAILY 04/28/18 07/19/21 metFORMIN HCL [Glucophage] 500 mg PO BID 04/28/18 07/19/21 Acetaminophen with Codeine 0.5 - 1 tab PO Q6H PRN 09/25/18 07/19/21 [Tylenol w/codeine #3] Gabapentin [Neurontin] 100 mg PO HS 05/25/20 07/19/21 Losartan [Cozaar] 50 mg PO BID 05/25/20 07/19/21 Atorvastatin [Lipitor] 40 mg PO DAILY 03/26/21 07/19/21 Furosemide [Lasix] 20 mg PO BID 03/26/21 07/19/21 Amoxicillin/Potassium Clav 1 tab PO Q12H 07/19/21 07/19/21 [Augmentin 875-125 Tablet] Aspirin EC [Ecotrin Low Dose] 81 mg PO DAILY 07/19/21 07/19/21 Cholecalciferol [Vitamin D3 (10 10 mcg PO DAILY 07/19/21 07/19/21 Mcg = 400 Iu)] Famotidine 20 mg PO BID 07/19/21 07/19/21 Isosorbide Mononitrate ER [Imdur] 60 mg PO DAILY 07/19/21 07/19/21 Metoprolol Tartrate [Lopressor] 50 mg PO BID 07/19/21 07/19/21 amLODIPine [Norvasc] 5 mg PO DAILY 07/19/21 07/19/21 Previous Rx's Medication Instructions Recorded ALPRAZolam [Xanax] 0.25 mg PO DAILY PRN #30 06/05/17 Clopidogrel [Plavix] 75 mg PO DAILY #30 tab 05/28/20 Dicyclomine [Bentyl] 20 mg PO TID PRN #20 tablet 07/19/21 Ondansetron Odt [Zofran Odt] 4 mg PO Q8HR PRN #10 tab 07/19/21 Allergies Allergy/AdvReac Type Severity Reaction Status Date / Time aspartame Allergy Severe Swelling Verified 03/11/22 16:26 PAPER TAPE AdvReac Unknown Rash/Hives Uncoded 03/11/22 16:26 Review of Systems ROS Statement: Those systems with pertinent positive or pertinent negative responses have been documented in the HPI. ROS Other: All systems not noted in ROS Statement are negative. Constitutional: Denies: fever Eyes: Denies: eye pain ENT: Denies: ear pain Respiratory: Denies: cough Cardiovascular: Denies: chest pain Endocrine: Denies: fatigue Gastrointestinal: Reports: as per HPI, constipation Genitourinary: Denies: dysuria Musculoskeletal: Denies: back pain Skin: Denies: rash Neurological: Denies: weakness Past Medical History Past Medical History: Coronary Artery Disease (CAD), CVA/TIA, Diabetes Mellitus, Eye Disorder, GERD/Reflux, Hearing Disorder / Deafness, Hyperlipidemia, Hypertension, Myocardial Infarction ([place]), Osteoarthritis (OA), Pneumonia, Thyroid Disorder Additional Past Medical History / Comment(s): EPISODES OF ANGIOEDEMA, NIDDM TYPE II, 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 Last Myocardial Infarction Date:: 09/2018 History of Any Multi-Drug Resistant Organisms: None Reported Past Surgical History: Back Surgery, Breast Surgery, Heart Catheterization With Stent, Hysterectomy, Orthopedic Surgery, Tubal Ligation Additional Past Surgical History / Comment(s): PCI with a total of 7 stents, low back surgery, L breast benign bx, R rotator cuff repair, R eye cataract removed, multiple bilateral laser eye surgeries, bilateral eye stents-R one fell out, thyroidectomy d/t nodules, temporal artery bx, cervical and lumbar injections. Past Anesthesia/Blood Transfusion Reactions: Previous Problems w/ Anesthesia Additional Past Anesthesia/Blood Transfusion Reaction / Comment(s): hard to wake up Date of Last Stent Placement:: 10/19/18 Past Psychological History: Anxiety Smoking Status: Never smoker Past Alcohol Use History: None Reported Past Drug Use History: None Reported - Past Family History Mother Family Medical History: Myocardial Infarction ([place]) Additional Family Medical History / Comment(s): MOTHER OF A [place] AT THE AGE OF 57YRS. Brother(s) Family Medical History: Myocardial Infarction ([place]) Additional Family Medical History / Comment(s): BROTHER OF A [place] AT THE AGE OF 60YRS. Father Family Medical History: No Reported History Additional Family Medical History / Comment(s): FATHER LIVED TO BE 90YRS OLD. General Exam Limitations: no limitations General appearance: alert, in no apparent distress Head exam: Present: normocephalic Eye exam: Present: normal appearance Neck exam: Present: normal inspection Respiratory exam: Present: normal lung sounds bilaterally Cardiovascular Exam: Present: regular rate, normal rhythm Expanded Peripheral pulses: 2+: Posterior Tibialis (R), Posterior Tibialis (L) GI/Abdominal exam: Present: soft, normal bowel sounds. Absent: distended, tenderness, guarding, rebound, rigid, pulsatile mass Extremities exam: Present: normal inspection Neurological exam: Present: alert Psychiatric exam: Present: normal affect, normal mood Skin exam: Present: normal color Course Vital Signs 03/11/22 16:23 Pulse Rate 78 Respiratory 18 Rate Blood Pressure 153/68 O2 Sat by Pulse 96 Oximetry Medical Decision Making - Medical Decision Making Telling enema and bowel movement patient is feeling much better and requesting discharge home. Abdomen is soft and nontender. Disposition Clinical Impression: Constipation Disposition: HOME SELF-CARE Condition: Stable Instructions (If sedation given, give patient instructions): Constipation (ED), High Fiber Diet (ED) Additional Instructions: [id number] stool softeners. You may continue milk of magnesia as needed. Return for fever, increased pain, worsening or changing symptoms or any other concerns. Is patient prescribed a controlled substance at d/c from ED?: No Referrals: Anthony Cameron MD [Primary Care Provider] - 1-2 days Time of Disposition: 20:22
[2022-03-12 03:36] VITALS: BP 139/79; PULSE 79; RESP 20; TEMP 97.7
== END 2022-03-11 20:35 | disposition home or self-care (01) ==
LOC: EC 16:22
DX: K59.00 Constipation, unspecified (principal); E11.9 Type 2 diabetes mellitus without complications; I10 Essential (primary) hypertension; E07.9 Disorder of thyroid, unspecified; K21.9 Gastro-esophageal reflux disease without esophagitis; Z79.83 Long term (current) use of bisphosphonates; E78.5 Hyperlipidemia, unspecified; Z86.73 Personal history of transient ischemic attack (TIA), and cerebral infarction without residual deficits; Z79.899 Other long term (current) drug therapy; Z82.49 Family history of ischemic heart disease and other diseases of the circulatory system; Z91.012 Allergy to eggs; Z91.09 Other allergy status, other than to drugs and biological substances
CPT/HCPCS: 74019; 99284

== ENCOUNTER → 2022-05-04 | Outpatient (CLI) | payer MEDICARE, BC ==
--- NOTE | 2022-05-06 07:51 | XR ---
EXAMINATION TYPE: XR abdomen acute w cxr DATE OF EXAM: 05/04/2022 COMPARISON: NONE HISTORY: Pain TECHNIQUE: Single view of the chest and 2 views of the abdomen are submitted. FINDINGS: Single view of the chest fails demonstrate evidence for acute pulmonary disease. There is no evidence for pneumoperitoneum. The bowel gas pattern is unremarkable as there is air throughout nondilated small and large bowel. No sizeable air fluid levels.No mass effects are seen. No unusual calcifications. IMPRESSION: 1. Unremarkable study.
== END | disposition home or self-care (01) ==
LOC: RADXRMAIN 15:02
PROVIDERS: ATTEND Family Medicine
DX: R14.0 Abdominal distension (gaseous) (principal)
CPT/HCPCS: 74022

== ENCOUNTER 2022-08-19 10:24 | Inpatient (IN) | payer MEDICARE, BC ==
[2022-08-19] MEDS ORDERED: FUROSEMIDE 10 MG/ML 4 ML VIAL IV STA (10:41)
--- NOTE | 2022-08-19 10:43 | ED ---
General Adult HPI - General Chief complaint: Shortness of Breath Stated complaint: SOB, leg swelling Time Seen by Provider: 08/19/22 10:32 Source: patient, family, RN notes reviewed Mode of arrival: ambulatory Limitations: no limitations - History of Present Illness Initial comments: Patient is a pleasant 87-year-old female presenting to the emergency department with concern with leg edema and dyspnea. Symptoms have progressed over several weeks. Patient is on Lasix and has seen her doctor several times however symptoms progressively worsening. No chest pain. Patient does have cardiac history and has had previous stents. Family is present and helps provide history. Dyspnea is worse with exertion and lying down. - Related Data Home Medications Medication Instructions Recorded Confirmed Vits A,C,E/Lutein/Minerals 1 tab PO BID 05/03/16 08/19/22 [Ocuvite with Lutein Tablet] Levothyroxine Sodium [Synthroid] 88 mcg PO DAILY 05/31/17 08/19/22 Glimepiride [Amaryl] 1 mg PO DAILY 04/28/18 08/19/22 metFORMIN HCL [Glucophage] 500 mg PO BID 04/28/18 08/19/22 Gabapentin [Neurontin] 200 mg PO BID PRN 05/25/20 08/19/22 Atorvastatin [Lipitor] 40 mg PO DAILY 03/26/21 08/19/22 Furosemide [Lasix] 20 mg PO BID 03/26/21 08/19/22 Amoxicillin/Potassium Clav 1 tab PO Q12H 07/19/21 08/19/22 [Augmentin 875-125 Tablet] Aspirin EC [Ecotrin Low Dose] 81 mg PO DAILY 07/19/21 08/19/22 Famotidine 20 mg PO BID 07/19/21 08/19/22 Isosorbide Mononitrate ER [Imdur] 30 mg PO DAILY 07/19/21 08/19/22 Metoprolol Tartrate [Lopressor] 50 mg PO BID 07/19/21 08/19/22 amLODIPine [Norvasc] 5 mg PO BID 07/19/21 08/19/22 Cholecalciferol [Vitamin D3 (25 25 mcg PO BID 08/19/22 08/19/22 Mcg = 1000 Iu)] Fluticasone Nasal [place] [Flonase 2 spray EA NOSTRIL DAILY PRN 08/19/22 08/19/22 Nasal [place]] Irbesartan [Avapro] 150 mg PO DAILY 08/19/22 08/19/22 metOLazone [Zaroxolyn] 5 mg PO DAILY 08/19/22 08/19/22 Previous Rx's Medication Instructions Recorded ALPRAZolam [Xanax] 0.25 mg PO DAILY PRN #30 06/05/17 Clopidogrel [Plavix] 75 mg PO DAILY #30 tab 05/28/20 Allergies Allergy/AdvReac Type Severity Reaction Status Date / Time aspartame Allergy Severe Swelling Verified 08/19/22 12:19 PAPER TAPE AdvReac Unknown Rash/Hives Uncoded 08/19/22 10:32 Review of Systems ROS Statement: Those systems with pertinent positive or pertinent negative responses have been documented in the HPI. ROS Other: All systems not noted in ROS Statement are negative. Constitutional: Denies: fever Eyes: Denies: eye pain ENT: Denies: ear pain Respiratory: Denies: cough Cardiovascular: Reports: dyspnea on exertion, orthopnea, edema. 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 Last Myocardial Infarction Date:: 09/2018 History of Any Multi-Drug Resistant Organisms: None Reported Past Surgical History: Back Surgery, Breast Surgery, Heart Catheterization With Stent, Hysterectomy, Orthopedic Surgery, Tubal Ligation Additional Past Surgical History / Comment(s): PCI with a total of 7 stents, low back surgery, L breast benign bx, R rotator cuff repair, R eye cataract removed, multiple bilateral laser eye surgeries, bilateral eye stents-R one fell out, thyroidectomy d/t nodules, temporal artery bx, cervical and lumbar injections. Past Anesthesia/Blood Transfusion Reactions: Previous Problems w/ Anesthesia Additional Past Anesthesia/Blood Transfusion Reaction / Comment(s): hard to wake up Date of Last Stent Placement:: 10/19/18 Past Psychological History: Anxiety Smoking Status: Never smoker Past Alcohol Use History: None Reported Past Drug Use History: None Reported - Past Family History Mother Family Medical History: Myocardial Infarction ([place]) Additional Family Medical History / Comment(s): MOTHER OF A [place] AT THE AGE OF 57YRS. Brother(s) Family Medical History: Myocardial Infarction ([place]) Additional Family Medical History / Comment(s): BROTHER OF A [place] AT THE AGE OF 60YRS. Father Family Medical History: No Reported History Additional Family Medical History / Comment(s): FATHER LIVED TO BE 90YRS OLD. General Exam Limitations: no limitations General appearance: alert, in no apparent distress Head exam: Present: normocephalic Eye exam: Present: normal appearance Neck exam: Present: normal inspection Respiratory exam: Present: decreased breath sounds Cardiovascular Exam: Present: regular rate, normal rhythm GI/Abdominal exam: Present: soft. Absent: tenderness Extremities exam: Present: pedal edema. Absent: calf tenderness Neurological exam: Present: alert Psychiatric exam: Present: normal affect, normal mood Skin exam: Present: normal color Course Vital Signs 08/19/22 08/19/22 10:28 12:54 Temperature 98.5 F 97.7 F Pulse Rate 69 68 Respiratory 20 22 Rate Blood Pressure 108/69 161/113 O2 Sat by Pulse 100 98 Oximetry EKG Findings - EKG Results: EKG: interpreted by ERMD (Right bundle-branch block. Nonspecific T waves.), sinus rhythm, normal axis Medical Decision Making - Medical Decision Making Patient reevaluated. Patient and family updated. Case was discussed with Dr. Alcantara, who will admit covering Dr. Cameron. He does have concern for possible pneumonia and requests computed tomography scan and IV antibiotics. - Lab Data Result diagrams: 08/19/22 11:08 08/19/22 11:08 Lab Results 08/19/22 08/19/22 08/19/22 Range/Units 11:08 11:08 11:08 WBC 7.3 (3.8-10.6) k/uL RBC 4.52 (3.80-5.40) m/uL Hgb 13.6 (11.4-16.0) gm/dL Hct 37.7 (34.0-46.0) % MCV 83.4 (80.0-100.0) fL MCH 30.1 (25.0-35.0) pg MCHC 36.1 (31.0-37.0) g/dL RDW 11.6 (11.5-15.5) % Plt Count 319 (150-450) k/uL MPV 8.3 Neutrophils % 58 % Lymphocytes % 22 % Monocytes % 11 % Eosinophils % 5 % Basophils % 1 % Neutrophils # 4.3 (1.3-7.7) k/uL Lymphocytes # 1.6 (1.0-4.8) k/uL Monocytes # 0.8 (0-1.0) k/uL Eosinophils # 0.3 (0-0.7) k/uL Basophils # 0.1 (0-0.2) k/uL PT 9.7 (9.0-12.0) sec INR 0.9 (<1.2) APTT 28.0 (22.0-30.0) sec D-Dimer (<0.60) mg/L FEU Sodium 118 L* (137-145) mmol/L Potassium 3.0 L (3.5-5.1) mmol/L Chloride 73 L* (98-107) mmol/L Carbon Dioxide 34 H (22-30) mmol/L Anion Gap 11 mmol/L BUN 29 H (7-17) mg/dL Creatinine 0.81 (0.52-1.04) mg/dL Est GFR (CKD-EPI)AfAm 75 (>60 ml/min/1.73 sqM) Est GFR (CKD-EPI)NonAf 65 (>60 ml/min/1.73 sqM) Glucose 139 H (74-99) mg/dL Plasma Lactic Acid [place] (0.7-2.0) mmol/L Calcium 9.2 (8.4-10.2) mg/dL Total Bilirubin 0.8 (0.2-1.3) mg/dL AST 26 (14-36) U/L ALT 20 (4-34) U/L Alkaline Phosphatase 189 H (38-126) U/L Troponin I (0.000-0.034) ng/mL NT-Pro-B Natriuret Pep pg/mL Total Protein 7.3 (6.3-8.2) g/dL Albumin 4.6 (3.5-5.0) g/dL Influenza Type A (PCR) (Not Detectd) Influenza Type B (PCR) (Not Detectd) RSV (PCR) (Not Detectd) SARS-CoV-2 (PCR) (Not Detectd) 08/19/22 08/19/22 08/19/22 Range/Units 11:08 11:08 11:08 WBC (3.8-10.6) k/uL RBC (3.80-5.40) m/uL Hgb (11.4-16.0) gm/dL Hct (34.0-46.0) % MCV (80.0-100.0) fL MCH (25.0-35.0) pg MCHC (31.0-37.0) g/dL RDW (11.5-15.5) % Plt Count (150-450) k/uL MPV Neutrophils % % Lymphocytes % % Monocytes % % Eosinophils % % Basophils % % Neutrophils # (1.3-7.7) k/uL Lymphocytes # (1.0-4.8) k/uL Monocytes # (0-1.0) k/uL Eosinophils # (0-0.7) k/uL Basophils # (0-0.2) k/uL PT (9.0-12.0) sec INR (<1.2) APTT (22.0-30.0) sec D-Dimer (<0.60) mg/L FEU Sodium (137-145) mmol/L Potassium (3.5-5.1) mmol/L Chloride (98-107) mmol/L Carbon Dioxide (22-30) mmol/L Anion Gap mmol/L BUN (7-17) mg/dL Creatinine (0.52-1.04) mg/dL Est GFR (CKD-EPI)AfAm (>60 ml/min/1.73 sqM) Est GFR (CKD-EPI)NonAf (>60 ml/min/1.73 sqM) Glucose (74-99) mg/dL Plasma Lactic Acid German 2.5 H* (0.7-2.0) mmol/L Calcium (8.4-10.2) mg/dL Total Bilirubin (0.2-1.3) mg/dL AST (14-36) U/L ALT (4-34) U/L Alkaline Phosphatase (38-126) U/L Troponin I <0.012 (0.000-0.034) ng/mL NT-Pro-B Natriuret Pep 141 pg/mL Total Protein (6.3-8.2) g/dL Albumin (3.5-5.0) g/dL Influenza Type A (PCR) (Not Detectd) Influenza Type B (PCR) (Not Detectd) RSV (PCR) (Not Detectd) SARS-CoV-2 (PCR) (Not Detectd) 08/19/22 08/19/22 Range/Units 11:08 12:22 WBC (3.8-10.6) k/uL RBC (3.80-5.40) m/uL Hgb (11.4-16.0) gm/dL Hct (34.0-46.0) % MCV (80.0-100.0) fL MCH (25.0-35.0) pg MCHC (31.0-37.0) g/dL RDW (11.5-15.5) % Plt Count (150-450) k/uL MPV Neutrophils % % Lymphocytes % % Monocytes % % Eosinophils % % Basophils % % Neutrophils # (1.3-7.7) k/uL Lymphocytes # (1.0-4.8) k/uL Monocytes # (0-1.0) k/uL Eosinophils # (0-0.7) k/uL Basophils # (0-0.2) k/uL PT (9.0-12.0) sec INR (<1.2) APTT (22.0-30.0) sec D-Dimer 0.51 (<0.60) mg/L FEU Sodium (137-145) mmol/L Potassium (3.5-5.1) mmol/L Chloride (98-107) mmol/L Carbon Dioxide (22-30) mmol/L Anion Gap mmol/L BUN (7-17) mg/dL Creatinine (0.52-1.04) mg/dL Est GFR (CKD-EPI)AfAm (>60 ml/min/1.73 sqM) Est GFR (CKD-EPI)NonAf (>60 ml/min/1.73 sqM) Glucose (74-99) mg/dL Plasma Lactic Acid [place] (0.7-2.0) mmol/L Calcium (8.4-10.2) mg/dL Total Bilirubin (0.2-1.3) mg/dL AST (14-36) U/L ALT (4-34) U/L Alkaline Phosphatase (38-126) U/L Troponin I (0.000-0.034) ng/mL NT-Pro-B Natriuret Pep pg/mL Total Protein (6.3-8.2) g/dL Albumin (3.5-5.0) g/dL Influenza Type A (PCR) Not Detected (Not Detectd) Influenza Type B (PCR) Not Detected (Not Detectd) RSV (PCR) Not Detected (Not Detectd) SARS-CoV-2 (PCR) Not Detected (Not Detectd) - Radiology Data Interpreted by me: Chest x-ray shows cardiac megaly and chronic changes Disposition Clinical Impression: Hyponatremia, Dyspnea Disposition: ADMITTED IP TO THIS HOSP Is patient prescribed a controlled substance at d/c from ED?: No Referrals: Anthony Cameron MD [Primary Care Provider] - 1-2 days Time of Disposition: 13:40
[2022-08-19] MEDS ORDERED: ONDANSETRON 4 MG/2 ML VIAL IVP STA ×2 (11:08→12:46)
[2022-08-19 11:21] LABS: Basophils # (A) 0.1 k/uL (0-0.2); Basophils % (A) 1 %; Eosinophils # (A) 0.3 k/uL (0-0.7); Eosinophils % (A) 5 %; HCT 37.7 % (34.0-46.0); HGB 13.6 gm/dL (11.4-16.0); Lymphocytes # (A) 1.6 k/uL (1.0-4.8); Lymphocytes % (A) 22 %; MCH 30.1 pg (25.0-35.0); MCHC 36.1 g/dL (31.0-37.0); MCV 83.4 fL (80.0-100.0); Mean Platelet Volume 8.3; Monocytes # (A) 0.8 k/uL (0-1.0); Monocytes % (A) 11 %; Neutrophils # (A) 4.3 k/uL (1.3-7.7); Neutrophils % (A) 58 %; Platelet Count 319 k/uL (150-450); RBC 4.52 m/uL (3.80-5.40); RDW 11.6 % (11.5-15.5); WBC 7.3 k/uL (3.8-10.6)
--- NOTE | 2022-08-19 11:24 | XR ---
EXAMINATION TYPE: XR chest 2V DATE OF EXAM: 08/19/2022 COMPARISON: Chest x-ray April 12, 2021 HISTORY: Difficulty in breathing. TECHNIQUE: Frontal and lateral views of the chest are obtained. FINDINGS: There is chronic parenchymal change without suspicious focal air space opacity, pleural ef fusion, or pneumothorax seen. The cardiac silhouette size is mildly enlarged on current study. Overl kathy bra strap noted. The osseous structures are demineralized. IMPRESSION: Chronic changes and mild cardiomegaly without acute pulmonary process.
[2022-08-19 11:33] LABS: Albumin 4.6 g/dL (3.5-5.0); Calcium 9.2 mg/dL (8.4-10.2); Total Bilirubin 0.8 mg/dL (0.2-1.3); Total Protein 7.3 g/dL (6.3-8.2)
[2022-08-19 11:48] LABS: INR 0.9 (<1.2); Prothrombin Time 9.7 sec (9.0-12.0)
[2022-08-19] MEDS ORDERED: POTASSIUM CHLORIDE ER 20 MEQ TAB.ER PO STA (11:59)
[2022-08-19] MEDS ORDERED: SODIUM CHLORIDE 0.9% 1,000 ML IV STA (11:59)
[2022-08-19] MEDS ORDERED: MORPHINE SULFATE 2 MG/ML SYRINGE IVP STA (12:46)
[2022-08-19] MEDS ORDERED: PNEUMONIA PROTOCOL UTILIZED 1 EACH MISC PO PRN (13:43)
[2022-08-19] MEDS ORDERED: AZITHROMYCIN 500 MG in SODIUM CHLORIDE 0.9% 250 ML IVPB STA (13:43)
[2022-08-19] MEDS ORDERED: NALOXONE 0.4 MG/ML 1 ML VIAL IV PRN (13:45)
[2022-08-19] MEDS ORDERED: FLUTICASONE 50MCG/SPRAY NASAL 16GM EA NOSTRIL PRN (14:22)
--- NOTE | 2022-08-19 16:02 | CT ---
EXAMINATION TYPE: CT angio chest DATE OF EXAM: 08/19/2022 3:51 PM COMPARISON: None HISTORY: Chest pain and SOB CT DLP: 316.9 mGycm Automated exposure control for dose reduction was used. CONTRAST: CTA scan of the thorax is performed with IV Contrast, patient injected with 100cc mL of Isovue 370, p ulmonary embolism protocol. 3-D postprocessing was performed.. FINDINGS: The lungs are clear of consolidative/airspace or interstitial density. There is no pleural effusion or pneumothorax. In the subpleural parenchymal medial right upper lobe, there is a dense/calcified 6 mm nodule. There is a 7.5 mm subpleural parenchymal nodule in the right middle lobe laterally. In the left upper lobe, there is a cluster of multiple tiny 1 to 2 mm scattere d innumerable subpleural parenchymal nodules. The great vessels the chest are normal. There are no filling defects within the pulmonary artery or branches to suggest pulmonary embolism. There is a large hiatal hernia. Scanning the upper abdomen reveals markedly atrophic pancreas. IMPRESSION: 1. No evidence of pulmonary embolism. Pulmonary nodules as described above. 3. No acute cardiopulmonary disease. 4. Large hiatal hernia. 5. Markedly atrophic pancreas.
[2022-08-19 17:49] LABS: Glucose,Whole Blood 164 mg/dL (70-110)
[2022-08-19 20:03] LABS: Glucose,Whole Blood 215 mg/dL (70-110)
[2022-08-19] MEDS: HYDROcodone/APAP 5-325MG 1 EACH TAB PO PRN (20:08)
[2022-08-19] MEDS: HEPARIN SODIUM,PORCINE/PF 5,000 UNIT/0.5 ML SYRINGE SQ SCH (20:08)
[2022-08-19] MEDS: amLODIPine 5 MG TAB PO SCH (20:09)
[2022-08-19] MEDS: metFORMIN 500 MG TAB PO SCH (20:09)
[2022-08-19] MEDS: METOPROLOL TARTRATE 50 MG TAB PO SCH (20:09)
[2022-08-19] MEDS: CHOLECALCIFEROL 25 MCG (1000 IU) TABLET PO SCH (20:09)
[2022-08-19] MEDS ORDERED: VIT A,C & E-LUTEIN-MINERALS 1 EACH TAB PO SCH (21:00)
[2022-08-19 22:37] LABS: Appearance,Urine Clear (Clear); Bilirubin,Urine Negative (Negative); Blood,Urine Negative (Negative); Color,Urine Colorless; Glucose,Urine (UA) Negative (Negative); Ketones,Urine Negative (Negative); Leukocyte Esterase,Urine Negative (Negative); Nitrite,Urine Negative (Negative); PH, Urine 7.5 (5.0-8.0); Protein,Urine Negative (Negative); Urobilinogen,Urine <2.0 mg/dL (<2.0)
--- NOTE | 2022-08-20 01:08 | HP ---
HISTORY AND PHYSICAL CHIEF COMPLAINT: Leg pain and swelling. HISTORY OF PRESENT ILLNESS: This is an 87-year-old woman with a past medical history of multiple medical problems including CAD, CVA, diabetes mellitus, was complaining of leg pain, weakness, and some swelling also. The patient is followed by Dr. Cameron in the outpatient setting. The patient came to [facility], admitted for further evaluation and treatment. The patient was found to be severely hyponatremic with sodium 118. There is no history of any fever, rigors, or chills at this time. The patient is also found to be somewhat dehydrated also. PAST MEDICAL HISTORY: CAD, CVA, TIA, diabetes mellitus. The rest of the history and rest of the chart is reviewed. CURRENT MEDICATIONS: Reviewed from the chart, which include Lopressor, doses and rest of medications reviewed. ALLERGIES: Reviewed include FAMILY HISTORY: History of myocardial infarction. SOCIAL HISTORY: No history of smoking, or alcohol. REVIEW OF SYSTEMS: Could not be taken as the patient is drowsy after Morphine IV. PHYSICAL EXAMINATION: VITAL SIGNS: Pulse is 68, blood pressure 160/113, respirations 22. HEENT: Conjunctivae normal. NECK: No JVD. CARDIOVASCULAR: S1, S2. RESPIRATIONS: Breath sounds diminished at the bases. A few scattered rhonchi and crackles. ABDOMEN: Soft, nontender. LEGS: Bilateral leg edema. NERVOUS SYSTEM: Diffusely weak. SKIN: No ulcer, rash, bleeding. JOINTS: No active deforming arthropathy. LABS: Reviewed. Sodium 118. ASSESSMENT: 1. Bilateral leg pain and swelling for evaluation. 2. Severe hyponatremia. 3. Elevated lactic acid and dehydration. 4. History of coronary artery disease. 5. Diabetes mellitus, type 2. 6. Multiple medical issues. RECOMMENDATION AND DISCUSSION: This is an 87-year-old woman who presented with multiple complex medical issues. I recommend to continue the current medications, and symptomatic treatment. Otherwise, I would recommend cautious IV fluids. Otherwise, I recommend nephrology consultation and we will recommend symptomatic treatment of the pain. Resume the home medications once they are confirmed. The viral titers are negative. Prognosis guarded, which I discussed at length with the family at the bedside, who understand and agreed. Further recommendations to follow. MMODL / IJN: [id number] / TOMI
[2022-08-20 06:00] LABS: Glucose,Whole Blood 194 mg/dL (70-110)
--- NOTE | 2022-08-20 06:25 | XR ---
EXAMINATION TYPE: XR chest 2V DATE OF EXAM: 08/20/2022 COMPARISON: Chest x-ray and CT chest 1 day earlier HISTORY: Pneumonia. TECHNIQUE: Frontal and lateral views of the chest are obtained. FINDINGS: There is no suspicious focal air space opacity, pleural effusion, or pneumothorax seen. T he cardiac silhouette size is stable and within normal limits. Multilevel spurring in the thoracic sp ine is redemonstrated. IMPRESSION: No acute pulmonary process. No significant change from one day earlier.
[2022-08-20 07:51] LABS: Basophils # (A) 0.1 k/uL (0-0.2); Basophils % (A) 1 %; Eosinophils # (A) 0.3 k/uL (0-0.7); Eosinophils % (A) 4 %; HGB 13.3 gm/dL (11.4-16.0); Lymphocytes # (A) 1.6 k/uL (1.0-4.8); Lymphocytes % (A) 22 %; MCH 29.7 pg (25.0-35.0); MCHC 34.9 g/dL (31.0-37.0); MCV 85.3 fL (80.0-100.0); Mean Platelet Volume 8.5; Monocytes # (A) 0.7 k/uL (0-1.0); Monocytes % (A) 10 %; Neutrophils # (A) 4.4 k/uL (1.3-7.7); Neutrophils % (A) 60 %; Platelet Count 318 k/uL (150-450); RBC 4.46 m/uL (3.80-5.40); RDW 11.7 % (11.5-15.5); WBC 7.2 k/uL (3.8-10.6)
[2022-08-20 08:05] LABS: Albumin 4.2 g/dL (3.5-5.0); Calcium 8.5 mg/dL (8.4-10.2); Magnesium 1.9 mg/dL (1.6-2.3); Potassium 3.6 mmol/L (3.5-5.1); Total Bilirubin 0.5 mg/dL (0.2-1.3); Total Protein 6.7 g/dL (6.3-8.2)
[2022-08-20] MEDS: ATORVASTATIN 40 MG TAB PO SCH (08:29)
[2022-08-20] MEDS: CLOPIDOGREL 75 MG TAB PO SCH (08:29)
[2022-08-20] MEDS: LEVOTHYROXINE 88 MCG TAB PO SCH (08:29)
[2022-08-20] MEDS: amLODIPine 5 MG TAB PO SCH (08:29)
[2022-08-20] MEDS: ASPIRIN 81 MG PO SCH (08:29)
[2022-08-20] MEDS: CHOLECALCIFEROL 25 MCG (1000 IU) TABLET PO SCH ×2 (08:29→20:36)
[2022-08-20] MEDS: ISOSORBIDE MONONITRATE ER 30 MG TAB.ER.24H PO SCH (08:29)
[2022-08-20] MEDS: METOPROLOL TARTRATE 50 MG TAB PO SCH ×2 (08:30→20:36)
[2022-08-20] MEDS: metFORMIN 500 MG TAB PO SCH ×2 (08:30→20:37)
[2022-08-20] MEDS: GLIMEPIRIDE 1 MG TAB PO SCH (08:31)
[2022-08-20] MEDS: HEPARIN SODIUM,PORCINE/PF 5,000 UNIT/0.5 ML SYRINGE SQ SCH ×2 (08:31→20:37)
[2022-08-20] MEDS ORDERED: ONDANSETRON 4 MG/2 ML VIAL IVP STA (08:32)
[2022-08-20] MEDS ORDERED: LOSARTAN 50 MG TAB PO SCH (09:00)
[2022-08-20] MEDS ORDERED: AZITHROMYCIN 500 MG TAB PO SCH (09:00)
--- NOTE | 2022-08-20 11:30 | P.CRDCN ---
History of Present Illness Consult date: 08/20/22 Reason for Consult (text): CHF hx History of present illness: HISTORY OF PRESENT ILLNESS: This is a 87-year-old female with a past medical history significant for coronary artery disease with previous stenting, hypertension, hyperlipidemia, diabetes mellitus, carotid stenosis, and CVA. Patient follows in the office with Dr. Silva. We have been asked to see the patient in consultation for heart failure history. Patient examined at the bedside. Patient states she came into the hospital due to burning type sensation in her feet and swelling. At the time of evaluation her main concern is an upset stomach and she has right upper quadrant tenderness. She has chronic exertional shortness of breath which her lining layer is aware of. She denies chest pain patient received 1 dose of IV Lasix 40 mg in the emergency center.. EKG reveals sinus mechanism. Right bundle-branch block. No signs of acute ischemia Chest xray chronic changes without new acute pulmonary process CTA of the chest was negative for pulmonary embolism with no acute findings. There is hiatal hernia. Laboratory data: Sodium 118, potassium 3.0, chloride 73, CO2 34, BUN 29 and creatinine 0.81. Lactic acid 2.5. Troponin negative 1 proBNP 141. Influenza A, influenza B, RSV and Covid 19 not detected. Current home cardiac medications include Norvasc 5 mg twice a day, l aspirin 81 mg daily, Lipitor 40 mg daily, Plavix 75 mg daily, Lasix 20 mg twice daily, Imdur 30 mg daily, Zaroxolyn 5 mg daily, Lopressor 50 mg twice daily Most recent echocardiogram obtained on 03/29/2021 reveals ejection fraction 55- 60%. Trace to mild mitral regurgitation. Mild tricuspid regurgitation. Cardiac catheterization history: September 2018 with stenting to the circumflex. Patient underwent cardiac catheterization again in October 2018 revealing patent stent to the circumflex and LAD. REVIEW OF SYSTEMS: At the time of my exam: CONSTITUTIONAL: Denies fever or chills. HEENT: Denies blurred vision, vision changes, or eye pain. Denies hemoptysis CARDIOVASCULAR: Denies chest pain. Denies orthopnea. Denies PND. Denies palpitations RESPIRATORY: Denies shortness of breath. GASTROINTESTINAL: Denies abdominal pain. Denies nausea or vomiting. HEMATOLOGIC: Denies bleeding disorders. GENITOURINARY: Denies any blood in urine. SKIN: Denies pruitis. Denies rash. PHYSICAL EXAM: VITAL SIGNS: Reviewed. GENERAL: Well-developed in no acute distress. HEENT: Head is normocephalic. Pupils are equal, round. Sclerae anicteric. Mucous membranes of the mouth are moist. Neck supple. No JVD or thyromegaly LUNGS: Respirations even and unlabored. Lungs essentially clear to auscultation bilaterally. HEART: Regular rate and rhythm. S1 and S2 heard. ABDOMEN: Soft. Right upper quadrant tenderness. EXTREMITIES: Normal range of motion. No clubbing or cyanosis. Peripheral pulses intact. No lower extremity edema NEUROLOGIC: Awake and alert. Oriented x 3. ASSESSMENT: Hyponatremia Abdominal tenderness, nausea and vomiting Lower extremity edema and burning Coronary artery disease with previous stenting Hypertension Hyperlipidemia Diabetes mellitus Carotid stenosis History of CVA PLAN: Continue to hold Lasix and metolazone Obtain 2-D echocardiogram to assess cardiac structure and function Resume other home cardiac medications Management of hyponatremia per medicine/nephrology Further recommendations pending patient course Nurse practitioner note has been reviewed by physician. Signing provider agrees with the documented findings, assessment, and plan of care. 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 Last Myocardial Infarction Date:: 09/2018 History of Any Multi-Drug Resistant Organisms: None Reported Past Surgical History: Back Surgery, Breast Surgery, Heart Catheterization With Stent, Hysterectomy, Orthopedic Surgery, Tubal Ligation Additional Past Surgical History / Comment(s): PCI with a total of 7 stents, low back surgery, L breast benign bx, R rotator cuff repair, R eye cataract removed, multiple bilateral laser eye surgeries, bilateral eye stents-R one fell out, thyroidectomy d/t nodules, temporal artery bx, cervical and lumbar injections. Past Anesthesia/Blood Transfusion Reactions: Previous Problems w/ Anesthesia Additional Past Anesthesia/Blood Transfusion Reaction / Comment(s): hard to wake up Date of Last Stent Placement:: 10/19/18 Past Psychological History: Anxiety Additional Psychological History / Comment(s): Pt has her son, Geoffrey residing with her. She is visually impaired, reads with a lighted magnifying screen. She signs her name occasionally. She is able to manage her own medications. Her sons take her to appts. She ambulates with a walker. Smoking Status: Never smoker Past Alcohol Use History: None Reported Past Drug Use History: None Reported - Past Family History Mother Family Medical History: Myocardial Infarction (MD) Additional Family Medical History / Comment(s): MOTHER OF A MD AT THE AGE OF 57YRS. Brother(s) Family Medical History: Myocardial Infarction (MD) Additional Family Medical History / Comment(s): BROTHER OF A MD AT THE AGE OF 60YRS. Father Family Medical History: No Reported History Additional Family Medical History / Comment(s): FATHER LIVED TO BE 90YRS OLD. Medications and Allergies Home Medications Medication Instructions Recorded Confirmed Type Vits A,C,E/Lutein/Minerals 1 tab PO BID 05/03/16 08/19/22 History [Ocuvite with Lutein Tablet] Levothyroxine Sodium [Synthroid] 88 mcg PO DAILY 05/31/17 08/19/22 History ALPRAZolam [Xanax] 0.25 mg PO DAILY PRN #30 06/05/17 08/19/22 Rx Glimepiride [Amaryl] 1 mg PO DAILY 04/28/18 08/19/22 History metFORMIN HCL [Glucophage] 500 mg PO BID 04/28/18 08/19/22 History Gabapentin [Neurontin] 200 mg PO BID PRN 05/25/20 08/19/22 History Clopidogrel [Plavix] 75 mg PO DAILY #30 tab 05/28/20 08/19/22 Rx Atorvastatin [Lipitor] 40 mg PO DAILY 03/26/21 08/19/22 History Furosemide [Lasix] 20 mg PO BID 03/26/21 08/19/22 History Amoxicillin/Potassium Clav 1 tab PO Q12H 07/19/21 08/19/22 History [Augmentin 875-125 Tablet] Aspirin EC [Ecotrin Low Dose] 81 mg PO DAILY 07/19/21 08/19/22 History Famotidine 20 mg PO BID 07/19/21 08/19/22 History Isosorbide Mononitrate ER [Imdur] 30 mg PO DAILY 07/19/21 08/19/22 History Metoprolol Tartrate [Lopressor] 50 mg PO BID 07/19/21 08/19/22 History amLODIPine [Norvasc] 5 mg PO BID 07/19/21 08/19/22 History Cholecalciferol [Vitamin D3 (25 25 mcg PO BID 08/19/22 08/19/22 History Mcg = 1000 Iu)] Fluticasone Nasal [place] [Flonase 2 spray EA NOSTRIL DAILY PRN 08/19/22 08/19/22 History Nasal [place]] Irbesartan [Avapro] 150 mg PO DAILY 08/19/22 08/19/22 History metOLazone [Zaroxolyn] 5 mg PO DAILY 08/19/22 08/19/22 History Allergies Allergy/AdvReac Type Severity Reaction Status Date / Time aspartame Allergy Severe Swelling Verified 08/19/22 12:19 PAPER TAPE AdvReac Unknown Rash/Hives Uncoded 08/19/22 10:32 Physical Exam Vitals: Vital Signs Temp Pulse Pulse Resp BP BP BP 08/20/22 04:00 97.8 F 61 18 111/62 08/20/22 02:00 64 18 08/20/22 00:00 98.2 F 64 18 124/67 08/19/22 20:00 97.4 F L 65 18 99/75 08/19/22 18:19 18 08/19/22 17:29 97.8 F 75 16 167/68 08/19/22 16:01 97.7 F 69 20 154/81 08/19/22 12:54 97.7 F 68 22 161/113 08/19/22 10:28 98.5 F 69 20 108/69 Pulse Ox 08/20/22 04:00 95 08/20/22 02:00 08/20/22 00:00 95 08/19/22 20:00 98 08/19/22 18:19 08/19/22 17:29 94 L 08/19/22 16:01 95 08/19/22 12:54 98 08/19/22 10:28 100 Intake and Output 08/19/22 08/20/22 08/20/22 22:59 06:59 14:59 Intake Total 490 Output Total 300 250 Balance 190 -250 Intake: Intake, IV Titration 250 Amount Azithromycin 500 mg In 250 Sodium Chloride 0.9% 250 ml @ 250 mls/hr IVPB ONCE STA Rx#:[id number] Oral 240 Output: Urine 300 250 Other: Voiding Method Toilet # Voids 1 1 Weight 71.5 kg 70.1 kg Results 08/20/22 07:10 08/20/22 07:10 Cardiac Enzymes 08/19/22 08/19/22 Range/Units 11:08 11:08 AST 26 (14-36) U/L Troponin I <0.012 (0.000-0.034) ng/mL Coagulation 08/19/22 Range/Units 11:08 PT 9.7 (9.0-12.0) sec APTT 28.0 (22.0-30.0) sec CBC 08/19/22 08/20/22 Range/Units 11:08 07:10 WBC 7.3 7.2 (3.8-10.6) k/uL RBC 4.52 4.46 (3.80-5.40) m/uL Hgb 13.6 13.3 (11.4-16.0) gm/dL Hct 37.7 38.0 (34.0-46.0) % Plt Count 319 318 (150-450) k/uL Comprehensive Metabolic Panel 08/19/22 Range/Units 11:08 Sodium 118 L* (137-145) mmol/L Potassium 3.0 L (3.5-5.1) mmol/L Chloride 73 L* (98-107) mmol/L Carbon Dioxide 34 H (22-30) mmol/L BUN 29 H (7-17) mg/dL Creatinine 0.81 (0.52-1.04) mg/dL Glucose 139 H (74-99) mg/dL Calcium 9.2 (8.4-10.2) mg/dL AST 26 (14-36) U/L ALT 20 (4-34) U/L Alkaline Phosphatase 189 H (38-126) U/L Total Protein 7.3 (6.3-8.2) g/dL Albumin 4.6 (3.5-5.0) g/dL Current Medications Generic Name Dose Route Start Last Admin Trade Name Freq PRN Reason Stop Dose Admin Hydrocodone Bitart/Acetaminophen 1 each 12/23/22 14:23 08/19/22 20:08 Hydrocodone/Apap 5-325mg 1 Each Tab PO 1 each Q6HR PRN Administration Pain Alprazolam 0.25 mg 08/19/22 14:22 Alprazolam 0.25 Mg Tab PO DAILY PRN Anxiety Amlodipine Besylate 5 mg 08/19/22 21:00 08/19/22 20:09 Amlodipine 5 Mg Tab PO 5 mg BID [facility] Administration Aspirin 81 mg 08/20/22 09:00 Aspirin 81 Mg PO DAILY [facility] Atorvastatin Calcium 40 mg 08/20/22 09:00 Atorvastatin 40 Mg Tab PO DAILY [facility] Azithromycin 500 mg 08/20/22 09:00 Azithromycin 500 Mg Tab PO 08/21/22 09:01 DAILY [facility] Protocol Cholecalciferol 25 mcg 08/19/22 21:00 08/19/22 20:09 Cholecalciferol 25 Mcg (1000 Iu) Tablet PO 25 mcg BID [facility] Administration Clopidogrel Bisulfate 75 mg 08/20/22 09:00 Clopidogrel 75 Mg Tab PO DAILY [facility] Fluticasone Propionate 2 spray 08/19/22 14:22 Fluticasone 50mcg/[place] Nasal 16gm EA NOSTRIL DAILY PRN Allergy Symptoms Gabapentin 200 mg 08/19/22 14:22 Gabapentin 100 Mg Cap PO BID PRN NERVE PAIN Glimepiride 1 mg 08/20/22 09:00 Glimepiride 1 Mg Tab PO DAILY [facility] Heparin Sodium (Porcine) 5,000 unit 08/19/22 21:00 08/19/22 20:08 Heparin Sodium,Porcine/Pf 5,000 Unit/0.5 Ml Syringe SQ 5,000 unit Q12HR [facility] Administration Ceftriaxone Sodium 2 gm/ 50 mls @ 100 mls/hr 08/20/22 09:00 Sodium Chloride IVPB 08/23/22 09:29 Q24HR [facility] Protocol Isosorbide Mononitrate 30 mg 08/20/22 09:00 Isosorbide Mononitrate Er 30 Mg Tab.Er.24h PO DAILY [facility] Levothyroxine Sodium 88 mcg 08/20/22 09:00 Levothyroxine 88 Mcg Tab PO DAILY [facility] Losartan Potassium 50 mg 08/20/22 09:00 Losartan 50 Mg Tab PO DAILY [facility] Metformin HCl 500 mg 08/19/22 21:00 08/19/22 20:09 Metformin 500 Mg Tab PO 500 mg BID [facility] Administration Metoprolol Tartrate 50 mg 08/19/22 21:00 08/19/22 20:09 Metoprolol Tartrate 50 Mg Tab PO 50 mg BID [facility] Administration Miscellaneous Information 1 each 08/19/22 13:43 Pneumonia Protocol Utilized 1 Each Misc PO ONCE PRN Per Protocol Naloxone HCl 0.2 mg 08/19/22 13:45 Naloxone 0.4 Mg/Ml 1 Ml Vial IV Q2M PRN Opioid Reversal Intake and Output 08/19/22 08/20/22 08/20/22 22:59 06:59 14:59 Intake Total 490 Output Total 300 250 Balance 190 -250 Intake: Intake, IV Titration 250 Amount Azithromycin 500 mg In 250 Sodium Chloride 0.9% 250 ml @ 250 mls/hr IVPB ONCE STA Rx#:[id number] Oral 240 Output: Urine 300 250 Other: Voiding Method Toilet # Voids 1 1 Weight 71.5 kg 70.1 kg 08/20/22 07:10 08/19/22 11:08
[2022-08-20 11:57] LABS: Glucose,Whole Blood 168 mg/dL (70-110)
[2022-08-20] MEDS: CALCIUM CARBONATE LIQUID 500 MG/5 ML CUP PO PRN ×3 (12:07→20:37)
[2022-08-20] MEDS: IOPAMIDOL CONTRAST (ORAL USE) VIAL PO PRN ×2 (14:06→14:57)
--- NOTE | 2022-08-20 15:02 | P.NPCON ---
History of Present Illness - Reason for Consult Consult date: 08/20/22 hyponatremia - Chief Complaint Edema and shortness of breath - History of Present Illness Admitted to the hospital with the above complaints. History of chronic hyponatremia with a baseline sodium of 130 to 134. On admission serum sodium was 118. Initially given some IV fluids no improvement. Complaining of abdominal discomfort. Denies any nausea vomiting diarrhea. History of hypertension on multiple medications including amlodipine and losartan. Blood pressures running low. Denies history of malignancy, she takes metolazone at home. Not on any antipsychotics or antidepressants. 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 Last Myocardial Infarction Date:: 09/2018 History of Any Multi-Drug Resistant Organisms: None Reported Past Surgical History: Back Surgery, Breast Surgery, Heart Catheterization With Stent, Hysterectomy, Orthopedic Surgery, Tubal Ligation Additional Past Surgical History / Comment(s): PCI with a total of 7 stents, low back surgery, L breast benign bx, R rotator cuff repair, R eye cataract removed, multiple bilateral laser eye surgeries, bilateral eye stents-R one fell out, thyroidectomy d/t nodules, temporal artery bx, cervical and lumbar injections. Past Anesthesia/Blood Transfusion Reactions: Previous Problems w/ Anesthesia Additional Past Anesthesia/Blood Transfusion Reaction / Comment(s): hard to wake up Date of Last Stent Placement:: 10/19/18 Past Psychological History: Anxiety Additional Psychological History / Comment(s): Pt has her son, Geoffrey residing with her. She is visually impaired, reads with a lighted magnifying screen. She signs her name occasionally. She is able to manage her own medications. Her sons take her to appts. She ambulates with a walker. Smoking Status: Never smoker Past Alcohol Use History: None Reported Past Drug Use History: None Reported - Past Family History Mother Family Medical History: Myocardial Infarction (AL) Additional Family Medical History / Comment(s): MOTHER OF A AL AT THE AGE OF 57YRS. Brother(s) Family Medical History: Myocardial Infarction (AL) Additional Family Medical History / Comment(s): BROTHER OF A AL AT THE AGE OF 60YRS. Father Family Medical History: No Reported History Additional Family Medical History / Comment(s): FATHER LIVED TO BE 90YRS OLD. Medications and Allergies Home Medications Medication Instructions Recorded Confirmed Type Vits A,C,E/Lutein/Minerals 1 tab PO BID 05/03/16 08/19/22 History [Ocuvite with Lutein Tablet] Levothyroxine Sodium [Synthroid] 88 mcg PO DAILY 05/31/17 08/19/22 History ALPRAZolam [Xanax] 0.25 mg PO DAILY PRN #30 06/05/17 08/19/22 Rx Glimepiride [Amaryl] 1 mg PO DAILY 04/28/18 08/19/22 History metFORMIN HCL [Glucophage] 500 mg PO BID 04/28/18 08/19/22 History Gabapentin [Neurontin] 200 mg PO BID PRN 05/25/20 08/19/22 History Clopidogrel [Plavix] 75 mg PO DAILY #30 tab 05/28/20 08/19/22 Rx Atorvastatin [Lipitor] 40 mg PO DAILY 03/26/21 08/19/22 History Furosemide [Lasix] 20 mg PO BID 03/26/21 08/19/22 History Amoxicillin/Potassium Clav 1 tab PO Q12H 07/19/21 08/19/22 History [Augmentin 875-125 Tablet] Aspirin EC [Ecotrin Low Dose] 81 mg PO DAILY 07/19/21 08/19/22 History Famotidine 20 mg PO BID 07/19/21 08/19/22 History Isosorbide Mononitrate ER [Imdur] 30 mg PO DAILY 07/19/21 08/19/22 History Metoprolol Tartrate [Lopressor] 50 mg PO BID 07/19/21 08/19/22 History amLODIPine [Norvasc] 5 mg PO BID 07/19/21 08/19/22 History Cholecalciferol [Vitamin D3 (25 25 mcg PO BID 08/19/22 08/19/22 History Mcg = 1000 Iu)] Fluticasone Nasal [place] [Flonase 2 spray EA NOSTRIL DAILY PRN 08/19/22 08/19/22 History Nasal [place]] Irbesartan [Avapro] 150 mg PO DAILY 08/19/22 08/19/22 History metOLazone [Zaroxolyn] 5 mg PO DAILY 08/19/22 08/19/22 History Allergies Allergy/AdvReac Type Severity Reaction Status Date / Time aspartame Allergy Severe Swelling Verified 08/19/22 12:19 PAPER TAPE AdvReac Unknown Rash/Hives Uncoded 08/19/22 10:32 Physical Exam Vitals: Vital Signs Temp Pulse Pulse Resp BP BP BP 08/20/22 11:40 55 L 17 90/53 08/20/22 08:37 08/20/22 08:00 97.4 F L 61 14 123/77 08/20/22 04:00 97.8 F 61 18 111/62 08/20/22 02:00 64 18 08/20/22 00:00 98.2 F 64 18 124/67 08/19/22 20:00 97.4 F L 65 18 99/75 08/19/22 18:19 18 08/19/22 17:29 97.8 F 75 16 167/68 08/19/22 16:01 97.7 F 69 20 154/81 Pulse Ox 08/20/22 11:40 92 L 08/20/22 08:37 96 08/20/22 08:00 96 08/20/22 04:00 95 08/20/22 02:00 08/20/22 00:00 95 08/19/22 20:00 98 08/19/22 18:19 08/19/22 17:29 94 L 08/19/22 16:01 95 Intake and Output 08/19/22 08/20/22 08/20/22 22:59 06:59 14:59 Intake Total 490 118 Output Total 300 250 Balance 190 -250 118 Intake: Intake, IV Titration 250 Amount Azithromycin 500 mg In 250 Sodium Chloride 0.9% 250 ml @ 250 mls/hr IVPB ONCE STA Rx#:[id number] Oral 240 118 Output: Urine 300 250 Other: Voiding Method Toilet Toilet # Voids 1 1 1 Weight 71.5 kg 70.1 kg No acute distress S1-S2 heard Decreased breath sounds Abdomen distended and tight Edema Results - Lab Results Most recent lab results Calcium 8.5 mg/dL (8.4-10.2) 08/20/22 07:10 Magnesium 1.9 mg/dL (1.6-2.3) 08/20/22 07:10 08/20/22 07:10 08/20/22 07:10 Assessment and Plan Assessment: #1 Acute on chronic hyponatremia suspect hypovolemia. -Baseline serum sodium of 1:30 to 134. -On metolazone at home #2 normal renal function #3 history of hypertension currently low normal Plan: #1 agree with holding metolazone. Add Lasix 40 mg IV twice a day. #2 place Whittaker catheter #3 check urine analysis, urine studies including osmolality. Also check TSH and cortisol and serum osmolality in the morning. #4 avoid nephrotoxic agents and hypotensive episodes #5 labs in the morning
[2022-08-20 15:22] LABS: Amylase 62 U/L (30-110); Lipase 197 U/L (23-300)
[2022-08-20] MEDS: FUROSEMIDE 10 MG/ML 4 ML VIAL IV SCH ×2 (16:09→20:52)
[2022-08-20 16:30] LABS: Glucose,Whole Blood 247 mg/dL (70-110)
--- NOTE | 2022-08-20 17:16 | CT ---
EXAMINATION TYPE: CT abdomen pelvis wo con DATE OF EXAM: 08/20/2022 COMPARISON: 07/19/2021 HISTORY: Abdominal Tenderness RLQ CT DLP: 695.2 mGycm Automated exposure control for dose reduction was used. Images obtained from the diaphragm to the floor the pelvis with no contrast. There is some oral contr ast. There is some mild interstitial density at the lung bases. No pleural effusion. Heart size is normal. No pericardial effusion. There is small hiatal hernia. Liver and spleen are intact. No dilated ducts. No evidence of pancreatic mass. There is probably a sm all calcified gallstone. There is no adrenal mass. Kidneys of normal size. There is some contrast in the kidneys from CT scan yesterday. No hydronephrosis. Ureters are not dilated. No retroperitoneal adenopathy. The bladder dis tends smoothly with some contrast. No inguinal hernia. No free fluid in the pelvis. There are sigmoid diverticula without diverticulitis. There is no mesenteric edema. No ascites or free air. No sign of a bowel obstruction. Lumbar vertebrae have fairly normal alignment. There is degenerative spur formation in the lumbar spi ne and multilevel lumbar facet arthropathy. No compression fracture. There is a mild degenerative sub luxation at L3-4. The bony pelvis is intact. The hip joints are intact. There is mild narrowing of th e hip joint spaces. Proximal femurs are intact. Acetabula are intact. There is slight lumbar levoscol iosis. Appendix is posterior and medial and appears normal. IMPRESSION: No acute abnormality in the abdomen pelvis. Degenerative changes in the lumbar spine as above. No fra cture seen. There is atherosclerotic disease. There is multilevel lumbar spinal stenosis due to facet arthropathy. There is probably a small gallstone. Mild fibrotic changes at the lung bases. There is improved aerat ion of the lung bases compared to old exam.
[2022-08-20] MEDS: ONDANSETRON 4 MG/2 ML VIAL IVP PRN (18:45)
[2022-08-20] MEDS: PANTOPRAZOLE 40 MG/10 ML VIAL IVP SCH (20:37)
[2022-08-20 20:38] LABS: Glucose,Whole Blood 161 mg/dL (70-110)
--- NOTE | 2022-08-20 20:39 | P.CONS ---
History of Present Illness - Reason for Consult Consult date: 08/20/22 Sepsis Requesting physician: Marshall Alcantara - Chief Complaint Increasing swelling redness to the lower extremity x few weeks - History of Present Illness Patient is a 87 year old female with a past medical history significant for diabetes mellitus hypertension hyperlipidemia; coronary artery disease CVA TIA presented to the ER for evaluation of increase in shortness of breath and significant swelling to bilateral lower extremity. His symptom has been going on for about 3 weeks and has been treated outpatient setting by her primary care physician with increasing dose of Lasix however did not have improvement patient mentioned started getting feeling sick to her stomach and nauseated but no vomiting she did have some vague abdominal pain but no diarrhea patient some mention that her leg was significant swollen and red especially the right leg with these symptoms the patient was evaluated by the ER physician on arrival to the ER, the patient was afebrile patient did have normal white count kidney for some abnormal liver enzymes are normal chest x-ray did show some marked bradycardia but no acute cardiopulmonary process patient also have a CT angiogram of the chest negative for PE today shows pulmonary nodules, patient was started on Rocephin and Zithromax infectious disease was consulted for possible sepsis Review of Systems Positive point has been mentioned in the HPI rest of the systems are negative Past Medical History Past Medical History: Coronary Artery Disease (CAD), CVA/TIA, Diabetes Mellitus, Eye Disorder, GERD/Reflux, Hearing Disorder / Deafness, Hyperlipidemia, Hypertension, Myocardial Infarction (CO), Osteoarthritis (OA), Pneumonia, Thyroid Disorder Additional Past Medical History / Comment(s): EPISODES OF ANGIOEDEMA, NIDDM TYPE II, 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 Last Myocardial Infarction Date:: 09/2018 History of Any Multi-Drug Resistant Organisms: None Reported Past Surgical History: Back Surgery, Breast Surgery, Heart Catheterization With Stent, Hysterectomy, Orthopedic Surgery, Tubal Ligation Additional Past Surgical History / Comment(s): PCI with a total of 7 stents, low back surgery, L breast benign bx, R rotator cuff repair, R eye cataract removed, multiple bilateral laser eye surgeries, bilateral eye stents-R one fell out, thyroidectomy d/t nodules, temporal artery bx, cervical and lumbar injections. Past Anesthesia/Blood Transfusion Reactions: Previous Problems w/ Anesthesia Additional Past Anesthesia/Blood Transfusion Reaction / Comm: hard to wake up Date of Last Stent Placement:: 10/19/18 Past Psychological History: Anxiety Additional Psychological History / Comment(s): Pt has her son, Geoffrey residing with her. She is visually impaired, reads with a lighted magnifying screen. She signs her name occasionally. She is able to manage her own medications. Her sons take her to appts. She ambulates with a walker. Smoking Status: Never smoker Past Alcohol Use History: None Reported Past Drug Use History: None Reported - Past Family History Mother Family Medical History: Myocardial Infarction (CO) Additional Family Medical History / Comment(s): MOTHER OF A CO AT THE AGE OF 57YRS. Brother(s) Family Medical History: Myocardial Infarction (CO) Additional Family Medical History / Comment(s): BROTHER OF A CO AT THE AGE OF 60YRS. Father Family Medical History: No Reported History Additional Family Medical History / Comment(s): FATHER LIVED TO BE 90YRS OLD. Medications and Allergies Home Medications Medication Instructions Recorded Confirmed Type Vits A,C,E/Lutein/Minerals 1 tab PO BID 05/03/16 08/19/22 History [Ocuvite with Lutein Tablet] Levothyroxine Sodium [Synthroid] 88 mcg PO DAILY 05/31/17 08/19/22 History ALPRAZolam [Xanax] 0.25 mg PO DAILY PRN #30 06/05/17 08/19/22 Rx Glimepiride [Amaryl] 1 mg PO DAILY 04/28/18 08/19/22 History metFORMIN HCL [Glucophage] 500 mg PO BID 04/28/18 08/19/22 History Gabapentin [Neurontin] 200 mg PO BID PRN 05/25/20 08/19/22 History Clopidogrel [Plavix] 75 mg PO DAILY #30 tab 05/28/20 08/19/22 Rx Atorvastatin [Lipitor] 40 mg PO DAILY 03/26/21 08/19/22 History Furosemide [Lasix] 20 mg PO BID 03/26/21 08/19/22 History Amoxicillin/Potassium Clav 1 tab PO Q12H 07/19/21 08/19/22 History [Augmentin 875-125 Tablet] Aspirin EC [Ecotrin Low Dose] 81 mg PO DAILY 07/19/21 08/19/22 History Famotidine 20 mg PO BID 07/19/21 08/19/22 History Isosorbide Mononitrate ER [Imdur] 30 mg PO DAILY 07/19/21 08/19/22 History Metoprolol Tartrate [Lopressor] 50 mg PO BID 07/19/21 08/19/22 History amLODIPine [Norvasc] 5 mg PO BID 07/19/21 08/19/22 History Cholecalciferol [Vitamin D3 (25 25 mcg PO BID 08/19/22 08/19/22 History Mcg = 1000 Iu)] Fluticasone Nasal Cornelia [Flonase 2 spray EA NOSTRIL DAILY PRN 08/19/22 08/19/22 History Nasal Cornelia] Irbesartan [Avapro] 150 mg PO DAILY 08/19/22 08/19/22 History metOLazone [Zaroxolyn] 5 mg PO DAILY 08/19/22 08/19/22 History Allergies Allergy/AdvReac Type Severity Reaction Status Date / Time aspartame Allergy Severe Swelling Verified 08/19/22 12:19 PAPER TAPE AdvReac Unknown Rash/Hives Uncoded 08/19/22 10:32 Physical Exam Vitals: Vital Signs Temp Pulse Pulse Resp BP BP BP 08/20/22 08:37 08/20/22 08:00 97.4 F L 61 14 123/77 08/20/22 04:00 97.8 F 61 18 111/62 08/20/22 02:00 64 18 08/20/22 00:00 98.2 F 64 18 124/67 08/19/22 20:00 97.4 F L 65 18 99/75 08/19/22 18:19 18 08/19/22 17:29 97.8 F 75 16 167/68 08/19/22 16:01 97.7 F 69 20 154/81 08/19/22 12:54 97.7 F 68 22 161/113 Pulse Ox 08/20/22 08:37 96 08/20/22 08:00 96 08/20/22 04:00 95 08/20/22 02:00 08/20/22 00:00 95 08/19/22 20:00 98 08/19/22 18:19 08/19/22 17:29 94 L 08/19/22 16:01 95 08/19/22 12:54 98 Intake and Output 08/19/22 08/20/22 08/20/22 22:59 06:59 14:59 Intake Total 490 Output Total 300 250 Balance 190 -250 Intake: Intake, IV Titration 250 Amount Azithromycin 500 mg In 250 Sodium Chloride 0.9% 250 ml @ 250 mls/hr IVPB ONCE STA Rx#:[id number] Oral 240 Output: Urine 300 250 Other: Voiding Method Toilet Toilet # Voids 1 1 1 Weight 71.5 kg 70.1 kg GENERAL DESCRIPTION: Elderly female lying in bed, no distress. No tachypnea or accessory muscle of respiration use. HEENT: Shows Pallor , no scleral icterus. Oral mucous membrane is dry. No pharyngeal erythema or thrush NECK: Trachea central, no thyromegaly. LUNGS: Unlabored breathing. Decreased breath sound the bases. No wheeze or crackle. HEART: S1, S2, regular rate and rhythm. No loud murmur ABDOMEN: Soft, mild right lower quadrant tenderness , no guarding or rigidity, no organomegaly EXTREMITIES: Diffuse swelling bilaterally lower extremity minimal redness to the right leg slightly warm and tender to touch. SKIN: No rash, no masses palpable. NEUROLOGICAL: The patient is awake, alert, oriented x3, mood and affect normal. Results CBC & Chem 7: 08/20/22 07:10 08/20/22 07:10 Labs: Abnormal Lab Results - Last 24 Hours (Table) 08/19/22 08/19/22 08/19/22 Range/Units 11:08 11:08 14:18 Sodium 118 L* (137-145) mmol/L Potassium 3.0 L (3.5-5.1) mmol/L Chloride 73 L* (98-107) mmol/L Carbon Dioxide 34 H (22-30) mmol/L BUN 29 H (7-17) mg/dL Glucose 139 H (74-99) mg/dL POC Glucose (mg/dL) (70-110) mg/dL Plasma Lactic Acid German 2.5 H* 2.7 H* (0.7-2.0) mmol/L Alkaline Phosphatase 189 H (38-126) U/L 08/19/22 08/19/22 08/19/22 Range/Units 17:39 17:41 20:00 Sodium (137-145) mmol/L Potassium (3.5-5.1) mmol/L Chloride (98-107) mmol/L Carbon Dioxide (22-30) mmol/L BUN (7-17) mg/dL Glucose (74-99) mg/dL POC Glucose (mg/dL) 164 H 215 H (70-110) mg/dL Plasma Lactic Acid German 2.1 H* (0.7-2.0) mmol/L Alkaline Phosphatase (38-126) U/L 08/19/22 08/20/22 08/20/22 Range/Units 20:48 05:59 07:10 Sodium 118 L* (137-145) mmol/L Potassium (3.5-5.1) mmol/L Chloride 75 L (98-107) mmol/L Carbon Dioxide 33 H (22-30) mmol/L BUN 24 H (7-17) mg/dL Glucose 157 H (74-99) mg/dL POC Glucose (mg/dL) 194 H (70-110) mg/dL Plasma Lactic Acid German 3.3 H* (0.7-2.0) mmol/L Alkaline Phosphatase 171 H (38-126) U/L Assessment and Plan (1) Cellulitis of right leg Current Visit: Yes Status: Acute Code(s): L03.115 - CELLULITIS OF RIGHT LOWER LIMB SNOMED Code(s): 768421747 Plan: 1the patient is in the hospital with a increasing swelling to bilateral lower extremity and also having redness to the right lower extremity with concern for possible cellulitis likely from a gram-positive skin phillip clinically doubt pneumonia in this patient with no significant cough fever and white count both chest x-ray as well as CT angiogram did not show any consolidation or if it is suspicious for pneumonia 2patient complaining of feeling sick to the stomach and she was taken to the right lower quadrant we will obtain a CT of abdominal pelvis to make sure no evidence of any intra-abdominal pathology 3patient to continue with Rocephin however discontinue Zithromax 4check inflammatory markers We will follow on clinical condition and cultures to further adjust medication if needed Thank you for this consultation will follow this patient with you Time with Patient: Greater than 30
[2022-08-20] MEDS: ALPRAZolam 0.25 MG TAB PO PRN (21:45)
[2022-08-21] MEDS: ONDANSETRON 4 MG/2 ML VIAL IVP PRN (00:35)
[2022-08-21] MEDS: HYDROcodone/APAP 5-325MG 1 EACH TAB PO PRN (00:35)
[2022-08-21] MEDS: GABAPENTIN 100 MG CAP PO PRN ×2 (00:36→23:54)
[2022-08-21 06:07] LABS: C Reactive Protein 1.2 mg/dL (<1.0); Calcium 8.4 mg/dL (8.4-10.2); Uric Acid 6.5 mg/dL (3.7-7.4)
[2022-08-21 06:21] LABS: Glucose,Whole Blood 160 mg/dL (70-110)
[2022-08-21 06:42] LABS: Basophils % (A) 1 %; Eosinophils # (A) 0.3 k/uL (0-0.7); Eosinophils % (A) 5 %; HCT 33.7 % (34.0-46.0); HGB 12.1 gm/dL (11.4-16.0); Lymphocytes # (A) 1.9 k/uL (1.0-4.8); Lymphocytes % (A) 35 %; MCH 30.4 pg (25.0-35.0); MCHC 35.9 g/dL (31.0-37.0); MCV 84.6 fL (80.0-100.0); Mean Platelet Volume 8.6; Monocytes # (A) 0.6 k/uL (0-1.0); Monocytes % (A) 11 %; Neutrophils # (A) 2.4 k/uL (1.3-7.7); Neutrophils % (A) 44 %; Platelet Count 259 k/uL (150-450); RBC 3.98 m/uL (3.80-5.40); RDW 11.5 % (11.5-15.5); WBC 5.4 k/uL (3.8-10.6)
--- NOTE | 2022-08-21 08:59 | P.PN ---
Subjective Progress Note Date: 08/21/22 Principal diagnosis: This is an 87-year-old female seen in consultation because of hyponatremia. Serum sodium was 118. Initially it was thought to be from volume depletion. IV fluids were given. Subsequently she was started on Lasix. Workup has shown a TSH is 2.9 normal cortisols level is normal but at the lower end of normal at 5 in the licensed social worker. Uric acid this 6.5. Urine osmolality is 204. Currently she is awake alert oriented. Denies any nausea vomiting but abdominal pain which has significantly improved after having bowel movements. No chest pain. She is known with coronary artery disease and diabetes mellitus And left eye blindness from CVA in 2017 and macular degeneration on the right. Objective - Vital Signs Vital signs: Vital Signs Temp 98.4 F 08/20/22 20:00 Pulse 52 L 08/21/22 03:50 Resp 18 08/21/22 03:50 BP 115/57 08/21/22 03:50 Pulse Ox 98 08/21/22 03:50 FiO2 Intake & Output 08/20/22 08/21/22 08/21/22 18:59 06:59 18:59 Intake Total 236 Output Total 450 750 Balance -214 -750 Weight 69.9 kg Intake: Oral 236 Output: Urine 450 750 Other: Voiding Method Toilet Toilet # Voids 1 1 Examination awake alert oriented no focal motor deficit HEENT exam no JVP neck is supple no facial asymmetry Lungs are clear to auscultation good air entry bilaterally Heart sounds unremarkable Abdomen soft nontender Extremity exam was no edema Neurologically awake alert oriented 3. - Labs CBC & Chem 7: 08/21/22 06:06 08/21/22 05:24 Labs: Abnormal Lab Results - Last 24 Hours (Table) 08/20/22 08/20/22 08/20/22 Range/Units 11:51 16:21 20:30 Hct (34.0-46.0) % Sodium (137-145) mmol/L Potassium (3.5-5.1) mmol/L Chloride (98-107) mmol/L BUN (7-17) mg/dL Creatinine (0.52-1.04) mg/dL Glucose (74-99) mg/dL POC Glucose (mg/dL) 168 H 247 H 161 H (70-110) mg/dL Osmolality (280-301) mosm/kg C-Reactive Protein (<1.0) mg/dL 08/21/22 08/21/22 08/21/22 Range/Units 05:24 06:06 06:19 Hct 33.7 L (34.0-46.0) % Sodium 115 L* (137-145) mmol/L Potassium 3.0 L (3.5-5.1) mmol/L Chloride 77 L (98-107) mmol/L BUN 31 H (7-17) mg/dL Creatinine 1.14 H (0.52-1.04) mg/dL Glucose 129 H (74-99) mg/dL POC Glucose (mg/dL) 160 H (70-110) mg/dL Osmolality 250 L (280-301) mosm/kg C-Reactive Protein 1.2 H (<1.0) mg/dL Microbiology - Last 24 Hours (Table) 08/19/22 15:45 Blood Culture - Preliminary Blood No Growth after 24 hours 08/19/22 16:00 Blood Culture - Preliminary Blood No Growth after 24 hours Assessment and Plan Assessment: Impression 1. Hyponatremia secondary to likely volume depletion from low intake and workup has included normal TSH at 2.9 course as well as 5, low normal, uric acid 6.5 urine osmolality is 204. Worsening with Lasix. Sodium went down from 118-115. A less likely possibility is SIADH given her many nodules on computed tomography scan-In the presence of elevated creatinine difficult to make a diagnosis of SIADH 2. Acute kidney injury creatinines up from 0.8-1.4 and bun is a pleasant 31 3. Pulmonary nodules and computed tomography scan needs to be followed up. 4., Diabetes mellitus. Recommendation 1. Discontinue Lasix. 2. gentle hydration with normal saline at 50 an hour. 3. Fluid restrict 1000. 4. Repeat labs in 4 hours and status called to me. 5. Check orthostatic changes
[2022-08-21] MEDS: ISOSORBIDE MONONITRATE ER 30 MG TAB.ER.24H PO SCH (09:21)
[2022-08-21] MEDS: LEVOTHYROXINE 88 MCG TAB PO SCH (09:21)
[2022-08-21] MEDS: PANTOPRAZOLE 40 MG/10 ML VIAL IVP SCH ×2 (09:21→20:28)
[2022-08-21] MEDS: CLOPIDOGREL 75 MG TAB PO SCH (09:21)
[2022-08-21] MEDS: ATORVASTATIN 40 MG TAB PO SCH (09:21)
[2022-08-21] MEDS: METOPROLOL TARTRATE 50 MG TAB PO SCH ×2 (09:22→20:27)
[2022-08-21] MEDS: ASPIRIN 81 MG PO SCH (09:22)
[2022-08-21] MEDS: HEPARIN SODIUM,PORCINE/PF 5,000 UNIT/0.5 ML SYRINGE SQ SCH ×2 (09:22→20:28)
[2022-08-21] MEDS: CHOLECALCIFEROL 25 MCG (1000 IU) TABLET PO SCH ×2 (09:22→20:28)
[2022-08-21] MEDS: amLODIPine 2.5 MG TAB PO SCH (09:22)
[2022-08-21] MEDS: GLIMEPIRIDE 1 MG TAB PO SCH (09:22)
[2022-08-21] MEDS: metFORMIN 500 MG TAB PO SCH ×2 (09:22→20:28)
[2022-08-21] MEDS ORDERED: POTASSIUM CHLORIDE ER 20 MEQ TAB.ER PO STA (09:25)
--- NOTE | 2022-08-21 11:02 | P.PN ---
Subjective Progress Note Date: 08/21/22 HISTORY OF PRESENT ILLNESS: This is a 87-year-old female with a past medical history significant for coronary artery disease with previous stenting, hypertension, hyperlipidemia, diabetes mellitus, carotid stenosis, and CVA. Patient follows in the office with Dr. Silva. We have been asked to see the patient in consultation for heart failure history. Patient examined at the bedside. Patient states she came into the hospital due to burning type sensation in her feet and swelling. At the time of evaluation her main concern is an upset stomach and she has right upper quadrant tenderness. She has chronic exertional shortness of breath which her industrial hygienist is aware of. She denies chest pain patient received 1 dose of IV Lasix 40 mg in the emergency center.. EKG reveals sinus mechanism. Right bundle-branch block. No signs of acute ischemia Chest xray chronic changes without new acute pulmonary process CTA of the chest was negative for pulmonary embolism with no acute findings. There is hiatal hernia. Laboratory data: Sodium 118, potassium 3.0, chloride 73, CO2 34, BUN 29 and creatinine 0.81. Lactic acid 2.5. Troponin negative 1 proBNP 141. Influenza A, influenza B, RSV and Covid 19 not detected. Current home cardiac medications include Norvasc 5 mg twice a day, l aspirin 81 mg daily, Lipitor 40 mg daily, Plavix 75 mg daily, Lasix 20 mg twice daily, Imdu r 30 mg daily, Zaroxolyn 5 mg daily, Lopressor 50 mg twice daily Most recent echocardiogram obtained on 03/29/2021 reveals ejection fraction 55- 60%. Trace to mild mitral regurgitation. Mild tricuspid regurgitation. Cardiac catheterization history: September 2018 with stenting to the circumflex. Patient underwent cardiac catheterization again in October 2018 revealing patent stent to the circumflex and LAD. 08/21 Patient continues to complain of burning in her feet. She also complains of abdominal pain is ongoing along with nausea especially after she eats. She denies having chest pain or shortness of breath. Heart rate is in the 50s and 60s, blood pressure 127/69. Repeat blood work reveals a BUN 26 creatinine 1.81. Sodium remains low at 115. Potassium 3. She is being followed by nephrology. Echocardiogram has been completed and report is pending. PHYSICAL EXAM: VITAL SIGNS: Reviewed. GENERAL: Well-developed in no acute distress. HEENT: Head is normocephalic. Pupils are equal, round. Sclerae anicteric. Mucous membranes of the mouth are moist. Neck supple. No JVD or thyromegaly LUNGS: Respirations even and unlabored. Lungs essentially clear to auscultation bilaterally. HEART: Regular rate and rhythm. S1 and S2 heard. ABDOMEN: Soft. Right upper quadrant tenderness. EXTREMITIES: Normal range of motion. No clubbing or cyanosis. Peripheral pulses intact. No lower extremity edema NEUROLOGIC: Awake and alert. Oriented x 3. ASSESSMENT: Hyponatremia Abdominal tenderness, nausea and vomiting Lower extremity edema and burning Coronary artery disease with previous stenting Hypertension Hyperlipidemia Diabetes mellitus Carotid stenosis History of CVA PLAN: Continue to hold Lasix and metolazone Obtain 2-D echocardiogram to assess cardiac structure and function Continue other home cardiac medications Management of hyponatremia per medicine/nephrology Further recommendations pending patient course Nurse practitioner note has been reviewed by physician. Signing provider agrees with the documented findings, assessment, and plan of care. Objective - Vital Signs Vital signs: Vital Signs Temp 98.4 F 08/20/22 20:00 Pulse 52 L 08/21/22 03:50 Resp 18 08/21/22 03:50 BP 115/57 08/21/22 03:50 Pulse Ox 98 08/21/22 03:50 FiO2 Intake & Output 08/20/22 08/21/22 08/21/22 18:59 06:59 18:59 Intake Total 236 Output Total 450 750 Balance -214 -750 Weight 69.9 kg Intake: Oral 236 Output: Urine 450 750 Other: Voiding Method Toilet Toilet # Voids 1 1 - Labs CBC & Chem 7: 08/21/22 06:06 08/21/22 05:24 Labs: Abnormal Lab Results - Last 24 Hours (Table) 08/20/22 08/20/22 08/20/22 Range/Units 11:51 16:21 20:30 Hct (34.0-46.0) % Sodium (137-145) mmol/L Potassium (3.5-5.1) mmol/L Chloride (98-107) mmol/L BUN (7-17) mg/dL Creatinine (0.52-1.04) mg/dL Glucose (74-99) mg/dL POC Glucose (mg/dL) 168 H 247 H 161 H (70-110) mg/dL Osmolality (280-301) mosm/kg C-Reactive Protein (<1.0) mg/dL 08/21/22 08/21/22 08/21/22 Range/Units 05:24 06:06 06:19 Hct 33.7 L (34.0-46.0) % Sodium 115 L* (137-145) mmol/L Potassium 3.0 L (3.5-5.1) mmol/L Chloride 77 L (98-107) mmol/L BUN 31 H (7-17) mg/dL Creatinine 1.14 H (0.52-1.04) mg/dL Glucose 129 H (74-99) mg/dL POC Glucose (mg/dL) 160 H (70-110) mg/dL Osmolality 250 L (280-301) mosm/kg C-Reactive Protein 1.2 H (<1.0) mg/dL Microbiology - Last 24 Hours (Table) 08/19/22 15:45 Blood Culture - Preliminary Blood No Growth after 24 hours 08/19/22 16:00 Blood Culture - Preliminary Blood No Growth after 24 hours
--- NOTE | 2022-08-21 11:11 | CA ---
Transthoracic Echo Report Name: Praveena Brewster Age: 87 Gender: F : 1935 Exam Date: 08/20/2022 12:01 Exam Location: [facility] Ht (in): 58 Wt (lb): 154 Ordering Physician: Chasity Soto Attending/Referring Phys: [id number], Brittany Assembly Line Worker Kalyani Braga RDCS Procedure CPT: Indications: LVF Cardiac Hx: Technical Quality: Fair Contrast 1: Total Dose (mL): Contrast 2: Total Dose (mL): MEASUREMENTS (Male / Female) Normal Values 2D ECHO LV Diastolic Diameter PLAX 3.4 cm 4.2 - 5.9 / 3.9 - 5.3 cm LV Systolic Diameter PLAX 2.2 cm IVS Diastolic Thickness 1.7 cm 0.6 - 1.0 / 0.6 - 0.9 cm LVPW Diastolic Thickness 1.4 cm 0.6 - 1.0 / 0.6 - 0.9 cm LV Relative Wall Thickness 0.9 RV Internal Dim ED PLAX 3.5 cm LA Volume 25.6 cm??? 18 - 58 / 22 - 52 cm??? M-MODE Aortic Root Diameter MM 3.3 cm LA Systolic Diameter MM 4.0 cm LA Ao Ratio MM 1.2 AV Cusp Separation MM 1.6 cm DOPPLER AV Peak Velocity 152.5 cm/s AV Peak Gradient 9.3 mmHg LVOT Peak Velocity 120.7 cm/s LVOT Peak Gradient 5.8 mmHg MV Area PHT 2.8 cm??? Mitral E Point Velocity 78.7 cm/s Mitral A Point Velocity 107.1 cm/s Mitral E to A Ratio 0.7 MV Deceleration Time 270.6 ms TR Peak Velocity 255.2 cm/s TR Peak Gradient 26.1 mmHg Right Ventricular Systolic Press 29.3 mmHg FINDINGS Left Ventricle Severely increased septal wall thickness. Moderately increased posterior wall thickness. Normal left ventricular systolic function with no obvious regional wall motion abnormalities. Left ventricular ejection fraction is estimated at 55 %. Right Ventricle Normal right ventricular size and function. Right ventricular systolic pressure within normal limits. Right Atrium Normal right atrial size. Left Atrium Mild left atrial dilatation. Mitral Valve Structurally normal mitral valve. Mitral valve thickened. Mild mitral annular calcification. Mild mitral regurgitation. Aortic Valve Aortic valve sclerosis. No aortic valve stenosis or regurgitation. Tricuspid Valve Structurally normal tricuspid valve. Mild tricuspid regurgitation. Pulmonic Valve Trace pulmonic regurgitation. Pericardium No pericardial effusion. Aorta Normal size aortic root and proximal ascending aorta. CONCLUSIONS Normal LV systolic function Mild mitral regurgitation Previewed by: Dr. Oneil Siddiqui MD (Electronically Signed) Final Date: 21 August 2022 11:11
[2022-08-21 11:59] LABS: Glucose,Whole Blood 231 mg/dL (70-110)
[2022-08-21 13:02] LABS: Potassium,Urine Random 28.6 mmol/L (25.0-125.0)
[2022-08-21 13:12] LABS: Calcium 8.6 mg/dL (8.4-10.2); Potassium 3.2 mmol/L (3.5-5.1)
--- NOTE | 2022-08-21 14:06 | P.PN ---
Subjective Progress Note Date: 08/21/22 Principal diagnosis: Bilateral lower extremity cellulitis Patient is a 87 year old female with a past medical history significant for diabetes mellitus hypertension hyperlipidemia; coronary artery disease CVA TIA presented to the ER for evaluation of increase in shortness of breath and significant swelling to bilateral lower extremity, patient was have significant redness to the lower extremity as per the son who provided the history on 08/20/2022 concerning for cellulitis patient also have a CT of abdominal pelvis because of tenderness but no acute abnormality was noticed on the CAT scan On today's Evaluation that is 08/01/2022, the patient is afebrile the patient is breathing slightly comfortably and is currently on room air still complaining of pain to the lower extremity and did have some swelling but no open wound or any drainage no chest pain shortness of breath or cough Objective - Vital Signs Vital signs: Vital Signs Temp 98.1 F 08/21/22 08:00 Pulse 58 L 08/21/22 08:00 Resp 18 08/21/22 08:00 BP 127/69 08/21/22 08:00 Pulse Ox 98 08/21/22 08:00 FiO2 Intake & Output 08/20/22 08/21/22 08/21/22 18:59 06:59 18:59 Intake Total 236 Output Total 450 750 400 Balance -214 -750 -400 Weight 69.9 kg Intake: Oral 236 Output: Urine 450 750 400 Other: Voiding Method Toilet Toilet # Voids 1 1 - Exam GENERAL DESCRIPTION: An elderly female up in the chair RESPIRATORY SYSTEM: Unlabored breathing , decreased breath sounds at bases HEART: S1 S2 regular rate and rhythm , ABDOMEN: Soft , no tenderness EXTREMITIES: Swelling bilaterally extremity with minimal redness especially the right leg - Labs CBC & Chem 7: 08/21/22 06:06 08/21/22 12:30 Labs: Abnormal Lab Results - Last 24 Hours (Table) 08/20/22 08/20/22 08/20/22 Range/Units 16:21 20:30 23:47 Hct (34.0-46.0) % Sodium (137-145) mmol/L Potassium (3.5-5.1) mmol/L Chloride (98-107) mmol/L Carbon Dioxide (22-30) mmol/L BUN (7-17) mg/dL Creatinine (0.52-1.04) mg/dL Glucose (74-99) mg/dL POC Glucose (mg/dL) 247 H 161 H (70-110) mg/dL Osmolality (280-301) mosm/kg C-Reactive Protein (<1.0) mg/dL Ur Random Sodium 23 L (40-220) mmol/L 08/21/22 08/21/22 08/21/22 Range/Units 05:24 06:06 06:19 Hct 33.7 L (34.0-46.0) % Sodium 115 L* (137-145) mmol/L Potassium 3.0 L (3.5-5.1) mmol/L Chloride 77 L (98-107) mmol/L Carbon Dioxide (22-30) mmol/L BUN 31 H (7-17) mg/dL Creatinine 1.14 H (0.52-1.04) mg/dL Glucose 129 H (74-99) mg/dL POC Glucose (mg/dL) 160 H (70-110) mg/dL Osmolality 250 L (280-301) mosm/kg C-Reactive Protein 1.2 H (<1.0) mg/dL Ur Random Sodium (40-220) mmol/L 08/21/22 08/21/22 Range/Units 11:57 12:30 Hct (34.0-46.0) % Sodium 119 L* (137-145) mmol/L Potassium 3.2 L (3.5-5.1) mmol/L Chloride 76 L (98-107) mmol/L Carbon Dioxide 33 H (22-30) mmol/L BUN 30 H (7-17) mg/dL Creatinine 1.36 H (0.52-1.04) mg/dL Glucose 162 H (74-99) mg/dL POC Glucose (mg/dL) 231 H (70-110) mg/dL Osmolality (280-301) mosm/kg C-Reactive Protein (<1.0) mg/dL Ur Random Sodium (40-220) mmol/L Microbiology - Last 24 Hours (Table) 08/19/22 15:45 Blood Culture - Preliminary Blood No Growth after 24 hours 08/19/22 16:00 Blood Culture - Preliminary Blood No Growth after 24 hours Assessment and Plan (1) Cellulitis of right leg Current Visit: Yes Status: Acute Code(s): L03.115 - CELLULITIS OF RIGHT LOWER LIMB SNOMED Code(s): 420055193 Plan: 1the patient is in the hospital with a increasing swelling to bilateral lower extremity and also having redness to the right lower extremity with concern for possible cellulitis likely from a gram-positive skin phillip clinically doubt pneumonia in this patient with no significant cough fever and white count both chest x-ray as well as CT angiogram did not show any consolidation or if it is suspicious for pneumonia 2patient complaining of feeling sick to the stomach and she was tender to the right lower quadrant however CT of abdominal pelvis did not show any acute intra-abdominal pathology 3patient still complaining of pain and swelling to the legs will apply Hans wrap and switch antibiotics to cefazolin Son at the bedside questions concerned were answered Time with Patient: Less than 30
[2022-08-21 16:54] LABS: Glucose,Whole Blood 127 mg/dL (70-110)
--- NOTE | 2022-08-21 18:04 | PN ---
PROGRESS NOTE DATE OF SERVICE: 08/20/2022 SUBJECTIVE: This is an 87-year-old woman who was admitted severe hyponatremia, nausea, vomiting and some CHF is being closely monitored. No chest pain. No palpitations. No fever. OBJECTIVE: VITAL SIGNS: Pulse is 55, blood pressure 90/53, respirations 17. HEENT: Conjunctivae normal. NECK: No jugular venous distention. CARDIOVASCULAR: S1 and S2. RESPIRATORY: Breath sounds diminished at the bases. Scattered rhonchi. ABDOMEN: Soft. NERVOUS SYSTEM: Nonfocal. LABS: Sodium 118, other labs are noted. ASSESSMENT: 1. Bilateral leg pain and swelling, for evaluation. 2. Severe hyponatremia. 3. Elevated lactic acid and dehydration. 4. History of coronary artery disease. 5. Diabetes mellitus, type 2. 6. Multiple medical issues. RECOMMENDATIONS: Recommend to continue current medications and symptomatic treatment. Repeat labs. Await Nephrology consultation. Cardiology input appreciated. Further recommendations to follow. MMODL / IJN: [id number] /
[2022-08-21] MEDS: SODIUM CHLORIDE 0.9% 1,000 ML IV SCH (20:10)
[2022-08-21 20:29] LABS: Glucose,Whole Blood 199 mg/dL (70-110)
[2022-08-21] MEDS: ALPRAZolam 0.25 MG TAB PO PRN (23:54)
[2022-08-22] MEDS: HYDROcodone/APAP 5-325MG 1 EACH TAB PO PRN (01:11)
--- NOTE | 2022-08-22 03:46 | PN ---
PROGRESS NOTE DATE OF SERVICE: 08/21/2022 SUBJECTIVE: This is an 87-year-old woman who was admitted with bilateral leg pain and swelling, is being closely monitored at this time. The patient had abdominal pelvis CAT scan, which showed no acute abnormality, small gallstones. A 2D echo with Doppler showed normal LV systolic function. Nephrology and Cardiology are following the patient closely. The patient has severe hyponatremia secondary to possibly volume depletion. Sodium is 119 today. No chest pain. No palpitation. OBJECTIVE: VITAL SIGNS: Pulse is 58, blood pressure n, respirations 18. HEENT: Conjunctivae are normal. NECK: No jugular venous distention. CARDIOVASCULAR: S1 and S2. RESPIRATORY: Breath sounds diminished at the bases. Few scattered rhonchi. ABDOMEN: Soft. LEGS: Bilateral leg edema pain. LABS: Sodium 119. ASSESSMENT: 1. Bilateral leg pain and swelling, for evaluation. 2. Severe hyponatremia. 3. Elevated lactic acid, dehydration. 4. Coronary artery disease. 5. Diabetes mellitus, type 2. 6. Multiple medical issues. RECOMMENDATIONS: Recommend to continue current medications and continue symptomatic treatment. Continue the antibiotics. Otherwise, repeat labs, closely follow with Nephrology. Prognosis is guarded because of the multiple complex medical issues and further recommendations to follow. MMODL / IJN: [id number] / TOMI
[2022-08-22] MEDS: SODIUM CHLORIDE 0.9% 1,000 ML IV SCH ×2 (04:30→23:54)
[2022-08-22 06:07] LABS: Glucose,Whole Blood 127 mg/dL (70-110)
[2022-08-22 06:25] LABS: Basophils # (A) 0.1 k/uL (0-0.2); Basophils % (A) 1 %; Eosinophils # (A) 0.3 k/uL (0-0.7); Eosinophils % (A) 4 %; HCT 34.5 % (34.0-46.0); HGB 12.2 gm/dL (11.4-16.0); Lymphocytes # (A) 1.7 k/uL (1.0-4.8); Lymphocytes % (A) 24 %; MCH 30.5 pg (25.0-35.0); MCHC 35.5 g/dL (31.0-37.0); MCV 85.8 fL (80.0-100.0); Mean Platelet Volume 8.3; Monocytes # (A) 0.7 k/uL (0-1.0); Monocytes % (A) 10 %; Neutrophils # (A) 4.3 k/uL (1.3-7.7); Neutrophils % (A) 59 %; Platelet Count 285 k/uL (150-450); RBC 4.02 m/uL (3.80-5.40); RDW 11.6 % (11.5-15.5); WBC 7.4 k/uL (3.8-10.6)
[2022-08-22 07:14] LABS: Calcium 8.1 mg/dL (8.4-10.2); Potassium 3.5 mmol/L (3.5-5.1)
[2022-08-22] MEDS: ISOSORBIDE MONONITRATE ER 30 MG TAB.ER.24H PO SCH (08:08)
[2022-08-22] MEDS: amLODIPine 2.5 MG TAB PO SCH (08:09)
[2022-08-22] MEDS: LEVOTHYROXINE 88 MCG TAB PO SCH (08:09)
[2022-08-22] MEDS: METOPROLOL TARTRATE 50 MG TAB PO SCH ×2 (08:09→19:51)
[2022-08-22] MEDS: PANTOPRAZOLE 40 MG/10 ML VIAL IVP SCH ×2 (08:09→19:51)
[2022-08-22] MEDS: CHOLECALCIFEROL 25 MCG (1000 IU) TABLET PO SCH ×2 (08:09→19:51)
[2022-08-22] MEDS: HEPARIN SODIUM,PORCINE/PF 5,000 UNIT/0.5 ML SYRINGE SQ SCH ×2 (08:09→19:52)
[2022-08-22] MEDS: metFORMIN 500 MG TAB PO SCH ×2 (08:09→19:51)
[2022-08-22] MEDS: GLIMEPIRIDE 1 MG TAB PO SCH (08:09)
[2022-08-22] MEDS: CLOPIDOGREL 75 MG TAB PO SCH (08:09)
[2022-08-22] MEDS: ATORVASTATIN 40 MG TAB PO SCH (08:09)
[2022-08-22] MEDS: ASPIRIN 81 MG PO SCH (08:09)
--- NOTE | 2022-08-22 09:38 | P.PN ---
Subjective Progress Note Date: 08/22/22 Principal diagnosis: This is an 87-year-old female seen in consultation because of hyponatremia. Serum sodium was 118. Initially it was thought to be from volume depletion. IV fluids were given. Subsequently she was started on Lasix. 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 Uric acid this 6.5. Urine osmolality is 204. Her sodium remains low at 119, creatinine improved from 1.36 mg to 1.08. Urine output is 1550 mL, intake is documented 290 only. Vital signs are stable Currently she is awake alert oriented. Denies any nausea vomiting but abdominal pain which has significantly improved after having bowel movements. No chest pain. 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 Objective - Vital Signs Vital signs: Vital Signs Temp 97.5 F L 08/22/22 04:00 Pulse 55 L 08/22/22 04:00 Resp 15 08/22/22 04:00 BP 118/72 08/22/22 04:00 Pulse Ox 96 08/22/22 04:00 FiO2 Intake & Output 08/21/22 08/22/22 08/22/22 18:59 06:59 18:59 Intake Total 290 Output Total 400 1150 Balance -400 -860 Weight 70.3 kg Intake: Intake, IV Titration 50 Amount ceFAZolin 2 gm In Sodium 50 Chloride 0.9% 50 ml @ 100 mls/hr IVPB Q12H [facility] Rx# :[id number] Oral 240 Output: Urine 400 1150 Other: Voiding Method Toilet # Voids 1 On examination she is awake alert oriented HEENT exam no JVP neck is supple no facial asymmetry Lungs are clear to auscultation good air entry bilaterally Heart sounds unremarkable Abdomen soft nontender. Extremity exam was trace edema with redness but much improved Neurologically awake alert oriented. - Labs CBC & Chem 7: 08/22/22 05:48 08/22/22 05:48 Labs: Abnormal Lab Results - Last 24 Hours (Table) 08/20/22 08/21/22 08/21/22 Range/Units 23:47 11:57 12:30 Sodium 119 L* (137-145) mmol/L Potassium 3.2 L (3.5-5.1) mmol/L Chloride 76 L (98-107) mmol/L Carbon Dioxide 33 H (22-30) mmol/L BUN 30 H (7-17) mg/dL Creatinine 1.36 H (0.52-1.04) mg/dL Glucose 162 H (74-99) mg/dL POC Glucose (mg/dL) 231 H (70-110) mg/dL Calcium (8.4-10.2) mg/dL Ur Random Sodium 23 L (40-220) mmol/L 08/21/22 08/21/22 08/22/22 Range/Units 16:53 20:28 05:48 Sodium 119 L* (137-145) mmol/L Potassium (3.5-5.1) mmol/L Chloride 80 L (98-107) mmol/L Carbon Dioxide 31 H (22-30) mmol/L BUN 27 H (7-17) mg/dL Creatinine 1.08 H (0.52-1.04) mg/dL Glucose 124 H (74-99) mg/dL POC Glucose (mg/dL) 127 H 199 H (70-110) mg/dL Calcium 8.1 L (8.4-10.2) mg/dL Ur Random Sodium (40-220) mmol/L 08/22/22 Range/Units 06:06 Sodium (137-145) mmol/L Potassium (3.5-5.1) mmol/L Chloride (98-107) mmol/L Carbon Dioxide (22-30) mmol/L BUN (7-17) mg/dL Creatinine (0.52-1.04) mg/dL Glucose (74-99) mg/dL POC Glucose (mg/dL) 127 H (70-110) mg/dL Calcium (8.4-10.2) mg/dL Ur Random Sodium (40-220) mmol/L Microbiology - Last 24 Hours (Table) 08/19/22 16:00 Blood Culture - Preliminary Blood No Growth after 48 hours 08/19/22 15:45 Blood Culture - Preliminary Blood No Growth after 48 hours Assessment and Plan Assessment: Impression 1. Initial admission Hyponatremia secondary to likely volume depletion from low intake and workup has included normal TSH at 2.9 course as well as 5, low normal, uric acid 6.5 urine osmolality is 204. Worsening with Lasix. Sodium went down from 118-115. A less likely possibility is SIADH given her many nodules on computed tomography scan. 2. Acute kidney injury creatinines up from 0.8-1.36, 3 secondary to dye, improved to 1.08 this morning 3. Pulmonary nodules and computed tomography scan needs to be followed up. 4., Diabetes mellitus. Recommendation 1. Remain off of Lasix. 2. gentle hydration with normal saline at 50 an hour. 3. Fluid restrict 1000.
[2022-08-22 11:48] LABS: Glucose,Whole Blood 160 mg/dL (70-110)
--- NOTE | 2022-08-22 11:56 | P.PN ---
Subjective Progress Note Date: 08/22/22 HISTORY OF PRESENT ILLNESS: This is a 87-year-old female with a past medical history significant for coronary artery disease with previous stenting, hypertension, hyperlipidemia, diabetes mellitus, carotid stenosis, and CVA. Patient follows in the office with Dr. Silva. We have been asked to see the patient in consultation for heart failure history. Patient examined at the bedside. Patient states she came into the hospital due to burning type sensation in her feet and swelling. At the time of evaluation her main concern is an upset stomach and she has right upper quadrant tenderness. 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 She denies chest pain patient received 1 dose of IV Lasix 40 mg in the emergency center.. EKG reveals sinus mechanism. Right bundle-branch block. No signs of acute ischemia Chest xray chronic changes without new acute pulmonary process CTA of the chest was negative for pulmonary embolism with no acute findings. There is hiatal hernia. Laboratory data: Sodium 118, potassium 3.0, chloride 73, CO2 34, BUN 29 and creatinine 0.81. Lactic acid 2.5. Troponin negative 1 proBNP 141. Influenza A, influenza B, RSV and Covid 19 not detected. Current home cardiac medications include Norvasc 5 mg twice a day, l aspirin 81 mg daily, Lipitor 40 mg daily, Plavix 75 mg daily, Lasix 20 mg twice daily, Imdu r 30 mg daily, Zaroxolyn 5 mg daily, Lopressor 50 mg twice daily Most recent echocardiogram obtained on 03/29/2021 reveals ejection fraction 55- 60%. Trace to mild mitral regurgitation. Mild tricuspid regurgitation. Cardiac catheterization history: September 2018 with stenting to the circumflex. Patient underwent cardiac catheterization again in October 2018 revealing patent stent to the circumflex and LAD. 08/21 Patient continues to complain of burning in her feet. She also complains of abdominal pain is ongoing along with nausea especially after she eats. She denies having chest pain or shortness of breath. Heart rate is in the 50s and 60s, blood pressure 127/69. Repeat blood work reveals a BUN 26 creatinine 1.81. Sodium remains low at 115. Potassium 3. She is being followed by nephrology. Echocardiogram has been completed and report is pending. 08/22 Patient continues to have a low sodium of 119. Echocardiogram reveals normal LV function with mild mitral regurgitation. Dr. ayala is on the case for possible cellulitis of the right lower extremity. Her abdominal pain and nausea are improved from yesterday. Heart rate is in the 50s and 60s, blood pressure 118/72. Lasix and metolazone remain on hold. PHYSICAL EXAM: VITAL SIGNS: Reviewed. GENERAL: Well-developed in no acute distress. HEENT: Head is normocephalic. Pupils are equal, round. Sclerae anicteric. Mucous membranes of the mouth are moist. Neck supple. No JVD or thyromegaly LUNGS: Respirations even and unlabored. Lungs essentially clear to auscultation bilaterally. HEART: Regular rate and rhythm. S1 and S2 heard. ABDOMEN: Soft. Right upper quadrant mild tenderness. EXTREMITIES: Normal range of motion. No clubbing or cyanosis. Peripheral pulses intact. No lower extremity edema NEUROLOGIC: Awake and alert. Oriented x 3. ASSESSMENT: Hyponatremia Abdominal tenderness, nausea and vomiting Lower extremity edema and burning Coronary artery disease with previous stenting Hypertension Hyperlipidemia Diabetes mellitus Carotid stenosis History of CVA PLAN: Continue to hold Lasix and metolazone Continue other home cardiac medications Management of hyponatremia per medicine/nephrology Cardiology we will sign off and follow on an as-needed basis. Please reconsult if new concerns develop. Nurse practitioner note has been reviewed by physician. Signing provider agrees with the documented findings, assessment, and plan of care. Objective - Vital Signs Vital signs: Vital Signs Temp 97.5 F L 08/22/22 04:00 Pulse 55 L 08/22/22 04:00 Resp 15 08/22/22 04:00 BP 118/72 08/22/22 04:00 Pulse Ox 96 08/22/22 04:00 FiO2 Intake & Output 08/21/22 08/22/22 08/22/22 18:59 06:59 18:59 Intake Total 290 Output Total 400 1150 Balance -400 -860 Weight 70.3 kg Intake: Intake, IV Titration 50 Amount ceFAZolin 2 gm In Sodium 50 Chloride 0.9% 50 ml @ 100 mls/hr IVPB Q12H [facility] Rx# :[id number] Oral 240 Output: Urine 400 1150 Other: Voiding Method Toilet # Voids 1 - Labs CBC & Chem 7: 08/22/22 05:48 08/22/22 05:48 Labs: Abnormal Lab Results - Last 24 Hours (Table) 08/20/22 08/21/22 08/21/22 Range/Units 23:47 11:57 12:30 Sodium 119 L* (137-145) mmol/L Potassium 3.2 L (3.5-5.1) mmol/L Chloride 76 L (98-107) mmol/L Carbon Dioxide 33 H (22-30) mmol/L BUN 30 H (7-17) mg/dL Creatinine 1.36 H (0.52-1.04) mg/dL Glucose 162 H (74-99) mg/dL POC Glucose (mg/dL) 231 H (70-110) mg/dL Calcium (8.4-10.2) mg/dL Ur Random Sodium 23 L (40-220) mmol/L 08/21/22 08/21/22 08/22/22 Range/Units 16:53 20:28 05:48 Sodium 119 L* (137-145) mmol/L Potassium (3.5-5.1) mmol/L Chloride 80 L (98-107) mmol/L Carbon Dioxide 31 H (22-30) mmol/L BUN 27 H (7-17) mg/dL Creatinine 1.08 H (0.52-1.04) mg/dL Glucose 124 H (74-99) mg/dL POC Glucose (mg/dL) 127 H 199 H (70-110) mg/dL Calcium 8.1 L (8.4-10.2) mg/dL Ur Random Sodium (40-220) mmol/L 08/22/22 Range/Units 06:06 Sodium (137-145) mmol/L Potassium (3.5-5.1) mmol/L Chloride (98-107) mmol/L Carbon Dioxide (22-30) mmol/L BUN (7-17) mg/dL Creatinine (0.52-1.04) mg/dL Glucose (74-99) mg/dL POC Glucose (mg/dL) 127 H (70-110) mg/dL Calcium (8.4-10.2) mg/dL Ur Random Sodium (40-220) mmol/L Microbiology - Last 24 Hours (Table) 08/19/22 16:00 Blood Culture - Preliminary Blood No Growth after 48 hours 08/19/22 15:45 Blood Culture - Preliminary Blood No Growth after 48 hours
--- NOTE | 2022-08-22 13:55 | P.PN ---
Subjective Progress Note Date: 08/22/22 Principal diagnosis: Bilateral lower extremity cellulitis Patient is a 87 year old female with a past medical history significant for diabetes mellitus hypertension hyperlipidemia; coronary artery disease CVA TIA presented to the ER for evaluation of increase in shortness of breath and significant swelling to bilateral lower extremity, patient was have significant redness to the lower extremity as per the son who provided the history on 08/20/2022 concerning for cellulitis patient also have a CT of abdominal pelvis because of tenderness but no acute abnormality was noticed on the CAT scan On today's Evaluation that is 08/22/2022, the patient remains to be afebrile the patient is breathing slightly comfortably on room air, the patient is still complaining of burning pain to bilateral lower extremity, swelling has improved currently wound or any drainage no abdominal pain or diarrhea Objective - Vital Signs Vital signs: Vital Signs Temp 97.6 F 08/22/22 08:00 Pulse 53 L 08/22/22 08:00 Resp 16 08/22/22 08:00 BP 137/65 08/22/22 08:00 Pulse Ox 96 08/22/22 08:00 FiO2 Intake & Output 08/21/22 08/22/22 08/22/22 18:59 06:59 18:59 Intake Total 290 360 Output Total 400 1150 Balance -400 -860 360 Weight 70.3 kg Intake: Intake, IV Titration 50 Amount ceFAZolin 2 gm In Sodium 50 Chloride 0.9% 50 ml @ 100 mls/hr IVPB Q12H [facility] Rx# :[id number] Oral 240 360 Output: Urine 400 1150 Other: Voiding Method Toilet # Voids 1 - Exam GENERAL DESCRIPTION: An elderly female up in the chair RESPIRATORY SYSTEM: Unlabored breathing , decreased breath sounds at bases HEART: S1 S2 regular rate and rhythm , ABDOMEN: Soft , no tenderness EXTREMITIES: Swelling bilaterally extremity with minimal redness especially the right leg - Labs CBC & Chem 7: 08/22/22 05:48 08/22/22 05:48 Labs: Abnormal Lab Results - Last 24 Hours (Table) 08/20/22 08/21/22 08/21/22 Range/Units 23:47 12:30 16:53 Sodium 119 L* (137-145) mmol/L Potassium 3.2 L (3.5-5.1) mmol/L Chloride 76 L (98-107) mmol/L Carbon Dioxide 33 H (22-30) mmol/L BUN 30 H (7-17) mg/dL Creatinine 1.36 H (0.52-1.04) mg/dL Glucose 162 H (74-99) mg/dL POC Glucose (mg/dL) 127 H (70-110) mg/dL Calcium (8.4-10.2) mg/dL Ur Random Sodium 23 L (40-220) mmol/L 08/21/22 08/22/22 08/22/22 Range/Units 20:28 05:48 06:06 Sodium 119 L* (137-145) mmol/L Potassium (3.5-5.1) mmol/L Chloride 80 L (98-107) mmol/L Carbon Dioxide 31 H (22-30) mmol/L BUN 27 H (7-17) mg/dL Creatinine 1.08 H (0.52-1.04) mg/dL Glucose 124 H (74-99) mg/dL POC Glucose (mg/dL) 199 H 127 H (70-110) mg/dL Calcium 8.1 L (8.4-10.2) mg/dL Ur Random Sodium (40-220) mmol/L 08/22/22 Range/Units 11:46 Sodium (137-145) mmol/L Potassium (3.5-5.1) mmol/L Chloride (98-107) mmol/L Carbon Dioxide (22-30) mmol/L BUN (7-17) mg/dL Creatinine (0.52-1.04) mg/dL Glucose (74-99) mg/dL POC Glucose (mg/dL) 160 H (70-110) mg/dL Calcium (8.4-10.2) mg/dL Ur Random Sodium (40-220) mmol/L Microbiology - Last 24 Hours (Table) 08/19/22 16:00 Blood Culture - Preliminary Blood No Growth after 48 hours 08/19/22 15:45 Blood Culture - Preliminary Blood No Growth after 48 hours Assessment and Plan (1) Cellulitis of right leg Current Visit: Yes Status: Acute Code(s): L03.115 - CELLULITIS OF RIGHT LOWER LIMB SNOMED Code(s): 712274948 Plan: 1the patient is in the hospital with a increasing swelling to bilateral lower extremity and also having redness to the right lower extremity with concern for possible cellulitis likely from a gram-positive skin phillip clinically doubt pneumonia in this patient with no significant cough fever and white count both chest x-ray as well as CT angiogram did not show any consolidation or if it is suspicious for pneumonia 2patient complaining of feeling sick to the stomach and she was tender to the right lower quadrant however CT of abdominal pelvis did not show any acute intra-abdominal pathology 3patient still complaining of pain to bilateral extremity questionable neuropathy swelling seemed to have improved continue with empiric cefazolin and continue supportive care Time with Patient: Less than 30
[2022-08-22 16:24] LABS: Glucose,Whole Blood 177 mg/dL (70-110)
[2022-08-22 20:04] LABS: Glucose,Whole Blood 197 mg/dL (70-110)
--- NOTE | 2022-08-22 22:31 | PN ---
PROGRESS NOTE DATE OF SERVICE: 08/22/2022 SUBJECTIVE: This 87-year-old woman, who was admitted with bilateral leg pain and swelling, is being closely monitored at this time. The patient to follow up with Cardiology as well as Infectious Disease. The patient is on cefazolin for possible cellulitis also. No chest pain. No palpitation. OBJECTIVE: VITAL SIGNS: Pulse is 53, blood pressure 117/55, respirations 16. HEENT: Conjunctivae normal. CARDIOVASCULAR: S1, S2. RESPIRATION: A few scattered rhonchi. ABDOMEN: Soft. LEGS: Bilateral leg cellulitis LABORATORY DATA: Reviewed personally. ASSESSMENT: 1. Bilateral leg pain and swelling, possible leg cellulitis. 2. Severe hyponatremia. 3. Elevated lactic acid and dehydration. 4. Coronary artery disease. 5. Diabetes mellitus, type 2. 6. Multiple medical issues. RECOMMENDATIONS: I recommend to continue current medications and symptomatic treatment. Repeat labs. Sodium is still down at 119. Otherwise, continue with antibiotics. Repeat labs. Prognosis guarded. Further recommendations to follow. MMODL / IJN: [id number] / MTDD
[2022-08-22] MEDS: GABAPENTIN 100 MG CAP PO PRN (22:55)
[2022-08-22] MEDS: ALPRAZolam 0.25 MG TAB PO PRN (22:55)
[2022-08-23 05:58] LABS: Glucose,Whole Blood 141 mg/dL (70-110)
[2022-08-23 07:09] LABS: Basophils # (A) 0.1 k/uL (0-0.2); Basophils % (A) 1 %; Eosinophils # (A) 0.3 k/uL (0-0.7); Eosinophils % (A) 4 %; HCT 33.1 % (34.0-46.0); HGB 11.5 gm/dL (11.4-16.0); Lymphocytes # (A) 1.5 k/uL (1.0-4.8); Lymphocytes % (A) 20 %; MCH 30.2 pg (25.0-35.0); MCHC 34.8 g/dL (31.0-37.0); MCV 86.8 fL (80.0-100.0); Mean Platelet Volume 8.9; Monocytes # (A) 0.7 k/uL (0-1.0); Monocytes % (A) 9 %; Neutrophils % (A) 64 %; Platelet Count 284 k/uL (150-450); RBC 3.81 m/uL (3.80-5.40); RDW 11.7 % (11.5-15.5); WBC 7.8 k/uL (3.8-10.6)
[2022-08-23 07:24] LABS: Calcium 8.2 mg/dL (8.4-10.2); Potassium 3.9 mmol/L (3.5-5.1)
[2022-08-23] MEDS: metFORMIN 500 MG TAB PO SCH ×2 (09:00→21:04)
[2022-08-23] MEDS: ATORVASTATIN 40 MG TAB PO SCH (09:00)
[2022-08-23] MEDS: CLOPIDOGREL 75 MG TAB PO SCH (09:00)
[2022-08-23] MEDS: CHOLECALCIFEROL 25 MCG (1000 IU) TABLET PO SCH ×2 (09:00→21:04)
[2022-08-23] MEDS: LEVOTHYROXINE 88 MCG TAB PO SCH (09:00)
[2022-08-23] MEDS: ASPIRIN 81 MG PO SCH (09:00)
[2022-08-23] MEDS: METOPROLOL TARTRATE 50 MG TAB PO SCH ×2 (09:00→21:04)
[2022-08-23] MEDS: amLODIPine 2.5 MG TAB PO SCH (09:00)
[2022-08-23] MEDS: HEPARIN SODIUM,PORCINE/PF 5,000 UNIT/0.5 ML SYRINGE SQ SCH ×2 (09:01→21:05)
[2022-08-23] MEDS: GLIMEPIRIDE 1 MG TAB PO SCH (09:01)
[2022-08-23] MEDS: PANTOPRAZOLE 40 MG/10 ML VIAL IVP SCH ×2 (09:01→21:04)
[2022-08-23] MEDS: ISOSORBIDE MONONITRATE ER 30 MG TAB.ER.24H PO SCH (09:03)
[2022-08-23] MEDS: SODIUM CHLORIDE 0.9% 1,000 ML IV SCH (11:44)
--- NOTE | 2022-08-23 11:58 | P.PN ---
Subjective Patient is seen in follow-up for hyponatremia. Sodium level improved with IV hydration. Oral intake is fair. No vomiting or diarrhea. Son present at bedside. Vital signs are stable. General: Awake. No acute distress. HEENT: Head exam is unremarkable. LUNGS: Breath sounds decreased. HEART: Rate and Rhythm are regular. ABDOMEN: Soft, no distention. EXTREMITITES: No edema. Objective - Vital Signs Vital signs: Vital Signs Temp 98.5 F 08/23/22 08:00 Pulse 68 08/23/22 08:00 Resp 17 08/23/22 08:00 BP 161/63 08/23/22 08:00 Pulse Ox 96 08/23/22 08:00 FiO2 Intake & Output 08/22/22 08/23/22 08/23/22 18:59 06:59 18:59 Intake Total 600 910 180 Output Total 1050 2000 1340 Balance -450 -1090 -1160 Weight 70.2 kg Intake: Intake, IV Titration 650 Amount Sodium Chloride 0.9% 1, 600 000 ml @ 50 mls/hr IV . Q20H [facility] Rx#:[id number] ceFAZolin 2 gm In Sodium 50 Chloride 0.9% 50 ml @ 100 mls/hr IVPB Q12H [facility] Rx# :[id number] Oral 600 260 180 Output: Urine 1050 2000 1340 Other: Voiding Method Toilet # Voids 1 - Labs CBC & Chem 7: 08/23/22 05:47 08/23/22 05:47 Labs: Abnormal Lab Results - Last 24 Hours (Table) 08/22/22 08/22/22 08/23/22 Range/Units 16:22 20:00 05:47 Hct 33.1 L (34.0-46.0) % Sodium (137-145) mmol/L Chloride (98-107) mmol/L Carbon Dioxide (22-30) mmol/L BUN (7-17) mg/dL Glucose (74-99) mg/dL POC Glucose (mg/dL) 177 H 197 H (70-110) mg/dL Calcium (8.4-10.2) mg/dL 08/23/22 08/23/22 Range/Units 05:47 05:57 Hct (34.0-46.0) % Sodium 126 L (137-145) mmol/L Chloride 88 L (98-107) mmol/L Carbon Dioxide 33 H (22-30) mmol/L BUN 22 H (7-17) mg/dL Glucose 125 H (74-99) mg/dL POC Glucose (mg/dL) 141 H (70-110) mg/dL Calcium 8.2 L (8.4-10.2) mg/dL Microbiology - Last 24 Hours (Table) 08/19/22 16:00 Blood Culture - Preliminary Blood No Growth after 72 hours 08/19/22 15:45 Blood Culture - Preliminary Blood No Growth after 72 hours Assessment and Plan Plan: Assessment: 1. Hypovolemic hyponatremia improving with IV hydration. Sodium level 126 today. Urine sodium 23 and urine osmolality 204. TSH normal. 2. Lower extremity cellulitis on antibiotics. ID following. 3. Benign hypertension. Stable. 4. Diabetes. 5. Pulmonary nodules. Pulmonary following. 6. Acute kidney injury mostly prerenal improved with IV hydration. Plan: Maintain normal saline. 1200 mL fluid restriction. Encourage oral intake. Add ensure twice a day. Repeat labs in the morning.
[2022-08-23 12:00] LABS: Glucose,Whole Blood 152 mg/dL (70-110)
[2022-08-23] MEDS: CALAMINE/ZINC OXIDE LOTION 177 ML BTL TOPICAL SCH ×2 (14:54→21:05)
[2022-08-23 16:34] LABS: Glucose,Whole Blood 156 mg/dL (70-110)
[2022-08-23 20:16] LABS: Glucose,Whole Blood 162 mg/dL (70-110)
--- NOTE | 2022-08-23 22:19 | P.PN ---
Subjective Progress Note Date: 08/23/22 Principal diagnosis: Bilateral lower extremity cellulitis Patient is a 87 year old female with a past medical history significant for diabetes mellitus hypertension hyperlipidemia; coronary artery disease CVA TIA presented to the ER for evaluation of increase in shortness of breath and significant swelling to bilateral lower extremity, patient was have significant redness to the lower extremity as per the son who provided the history on 08/20/2022 concerning for cellulitis patient also have a CT of abdominal pelvis because of tenderness but no acute abnormality was noticed on the CAT scan On today's Evaluation that is 08/23/2022, the patient continues to be afebrile the patient is breathing comfortably on room air, the patient mentioned pain to bilateral lower extremity has slightly decreased in intensity, swelling has improved currently wound or any drainage no abdominal pain or diarrhea Objective - Vital Signs Vital signs: Vital Signs Temp 98.4 F 08/23/22 12:00 Pulse 59 L 08/23/22 12:00 Resp 18 08/23/22 12:00 BP 132/64 08/23/22 12:00 Pulse Ox 96 08/23/22 12:00 FiO2 Intake & Output 08/22/22 08/23/22 08/23/22 18:59 06:59 18:59 Intake Total 600 910 180 Output Total 1050 2000 1340 Balance -450 -1090 -1160 Weight 70.2 kg Intake: Intake, IV Titration 650 Amount Sodium Chloride 0.9% 1, 600 000 ml @ 50 mls/hr IV . Q20H ANDREW Rx#:[id number] ceFAZolin 2 gm In Sodium 50 Chloride 0.9% 50 ml @ 100 mls/hr IVPB Q12H ANDREW Rx# :[id number] Oral 600 260 180 Output: Urine 1050 2000 1340 Other: Voiding Method Toilet # Voids 1 - Exam GENERAL DESCRIPTION: An elderly female up in the chair RESPIRATORY SYSTEM: Unlabored breathing , decreased breath sounds at bases HEART: S1 S2 regular rate and rhythm , ABDOMEN: Soft , no tenderness EXTREMITIES: Swelling bilaterally extremity with minimal redness especially the right leg - Labs CBC & Chem 7: 08/23/22 05:47 08/23/22 05:47 Labs: Abnormal Lab Results - Last 24 Hours (Table) 08/22/22 08/22/22 08/23/22 Range/Units 16:22 20:00 05:47 Hct 33.1 L (34.0-46.0) % Sodium (137-145) mmol/L Chloride (98-107) mmol/L Carbon Dioxide (22-30) mmol/L BUN (7-17) mg/dL Glucose (74-99) mg/dL POC Glucose (mg/dL) 177 H 197 H (70-110) mg/dL Calcium (8.4-10.2) mg/dL 08/23/22 08/23/22 08/23/22 Range/Units 05:47 05:57 11:59 Hct (34.0-46.0) % Sodium 126 L (137-145) mmol/L Chloride 88 L (98-107) mmol/L Carbon Dioxide 33 H (22-30) mmol/L BUN 22 H (7-17) mg/dL Glucose 125 H (74-99) mg/dL POC Glucose (mg/dL) 141 H 152 H (70-110) mg/dL Calcium 8.2 L (8.4-10.2) mg/dL Microbiology - Last 24 Hours (Table) 08/19/22 16:00 Blood Culture - Preliminary Blood No Growth after 72 hours 08/19/22 15:45 Blood Culture - Preliminary Blood No Growth after 72 hours Assessment and Plan (1) Cellulitis of right leg Current Visit: Yes Status: Acute Code(s): L03.115 - CELLULITIS OF RIGHT LOWER LIMB SNOMED Code(s): 296511022 Plan: 1the patient is in the hospital with a increasing swelling to bilateral lower extremity and also having redness to the right lower extremity with concern for possible cellulitis likely from a gram-positive skin phillip 2we will apply calamine lotion to the lower extremity rash area along with Hans wrap to keep some of the swelling down and continue with the cefazolin Time with Patient: Less than 30
[2022-08-23] MEDS ORDERED: DEXTROSE 5% IN WATER 100 ML with AMIODARONE 150 MG IV ONE (22:27)
[2022-08-23] MEDS ORDERED: AMIODARONE 360 MG in DEXTROSE 5% IN WATER 200 ML IV ONE ×2 (22:37)
[2022-08-23] MEDS: ALPRAZolam 0.25 MG TAB PO PRN (23:10)
[2022-08-23] MEDS: GABAPENTIN 100 MG CAP PO PRN (23:10)
--- NOTE | 2022-08-24 03:07 | PN ---
PROGRESS NOTE DATE OF SERVICE: 08/23/2022 SUBJECTIVE: This 87-year-old woman admitted with severe hyponatremia and bilateral leg pain and cellulitis, is being closely monitored. No chest pain. No palpitations. No fever. OBJECTIVE: VITAL SIGNS: Pulse 59, blood pressure 130/60, and respiration 18. HEENT: Conjunctivae are normal. CARDIOVASCULAR: S1 and S2. RESPIRATORY: Breath sounds diminished at the bases. Few scattered rhonchi. ABDOMEN: Soft. LEGS: Bilateral leg edema pain. NERVOUS SYSTEM: Nonfocal. LABORATORY DATA: Sodium 126. Rest of the labs are noted. ASSESSMENT: 1. Bilateral leg pain and swelling, possible leg cellulitis. 2. Severe hyponatremia. 3. Elevated lactic acid. 4. Coronary artery disease. 5. Diabetes mellitus type 2. 6. Multiple medical issues. DISCUSSION AND RECOMMENDATIONS: I recommend to continue current medications and symptomatic treatment. Otherwise, continue the antibiotics closely. Repeat labs. Closely follow with multiple consultants. Prognosis guarded. Further recommendations to follow. MMODL / IJN: [id number] /
[2022-08-24] MEDS ORDERED: AMIODARONE 450 MG in DEXTROSE 5% IN WATER 250 ML IV SCH ×2 (04:37)
[2022-08-24] MEDS: SODIUM CHLORIDE 0.9% 1,000 ML IV SCH (05:30)
[2022-08-24 05:58] LABS: Glucose,Whole Blood 171 mg/dL (70-110)
[2022-08-24] MEDS ORDERED: SENNOSIDES 8.6 MG TAB PO PRN (08:44)
[2022-08-24] MEDS ORDERED: MAGNESIUM HYDROXIDE 2,400 MG/10 ML CUP PO PRN (08:44)
[2022-08-24] MEDS ORDERED: LACTULOSE 20 GM/30 ML CUP PO ONE (08:44)
[2022-08-24] MEDS: metFORMIN 500 MG TAB PO SCH (08:48)
[2022-08-24] MEDS: ISOSORBIDE MONONITRATE ER 30 MG TAB.ER.24H PO SCH (08:48)
[2022-08-24] MEDS: ASPIRIN 81 MG PO SCH (08:48)
[2022-08-24] MEDS: ATORVASTATIN 40 MG TAB PO SCH (08:48)
[2022-08-24] MEDS: GLIMEPIRIDE 1 MG TAB PO SCH (08:48)
[2022-08-24] MEDS: amLODIPine 2.5 MG TAB PO SCH (08:48)
[2022-08-24] MEDS: METOPROLOL TARTRATE 50 MG TAB PO SCH (08:49)
[2022-08-24] MEDS: LEVOTHYROXINE 88 MCG TAB PO SCH (08:49)
[2022-08-24] MEDS: CALAMINE/ZINC OXIDE LOTION 177 ML BTL TOPICAL SCH (08:49)
[2022-08-24] MEDS: CLOPIDOGREL 75 MG TAB PO SCH (08:49)
[2022-08-24] MEDS: PANTOPRAZOLE 40 MG/10 ML VIAL IVP SCH (08:50)
[2022-08-24] MEDS: HEPARIN SODIUM,PORCINE/PF 5,000 UNIT/0.5 ML SYRINGE SQ SCH (08:50)
[2022-08-24] MEDS: CHOLECALCIFEROL 25 MCG (1000 IU) TABLET PO SCH (08:52)
[2022-08-24 10:27] LABS: Calcium 8.6 mg/dL (8.4-10.2); Magnesium 1.7 mg/dL (1.6-2.3); Potassium 4.1 mmol/L (3.5-5.1)
[2022-08-24 11:36] VITALS: BP 133/68; PULSE 68; RESP 19; TEMP 97.4
[2022-08-24 12:01] LABS: Glucose,Whole Blood 196 mg/dL (70-110)
--- NOTE | 2022-08-24 12:53 | P.PN ---
Subjective Patient is seen in follow-up for hyponatremia. Sodium level improved with IV hydration. Oral intake is fair. No vomiting or diarrhea. No active complaints. Vital signs are stable. General: Awake. No acute distress. HEENT: Head exam is unremarkable. LUNGS: Breath sounds decreased. HEART: Rate and Rhythm are regular. ABDOMEN: Soft, no distention. EXTREMITITES: No edema. Objective - Vital Signs Vital signs: Vital Signs Temp 97.4 F L 08/24/22 11:35 Pulse 68 08/24/22 11:35 Resp 19 08/24/22 11:35 BP 133/68 08/24/22 11:35 Pulse Ox 97 08/24/22 11:35 FiO2 Intake & Output 08/23/22 08/24/22 08/24/22 18:59 06:59 18:59 Intake Total 880 450 Output Total 1340 1550 900 Balance -460 -1100 -900 Weight 70.3 kg Intake: Intake, IV Titration 450 Amount Sodium Chloride 0.9% 1, 400 000 ml @ 50 mls/hr IV . Q20H ANDREW Rx#:[id number] ceFAZolin 2 gm In Sodium 50 Chloride 0.9% 50 ml @ 100 mls/hr IVPB Q12H ANDREW Rx# :[id number] Oral 880 Output: Urine 1340 1550 900 Other: Voiding Method Toilet # Voids 2 1 # Bowel Movements 1 - Labs CBC & Chem 7: 08/23/22 05:47 08/24/22 09:40 Labs: Abnormal Lab Results - Last 24 Hours (Table) 08/23/22 08/23/22 08/24/22 Range/Units 16:33 20:14 05:56 Sodium (137-145) mmol/L Chloride (98-107) mmol/L Glucose (74-99) mg/dL POC Glucose (mg/dL) 156 H 162 H 171 H (70-110) mg/dL 08/24/22 08/24/22 Range/Units 09:40 11:53 Sodium 131 L (137-145) mmol/L Chloride 97 L (98-107) mmol/L Glucose 185 H (74-99) mg/dL POC Glucose (mg/dL) 196 H (70-110) mg/dL Microbiology - Last 24 Hours (Table) 08/19/22 16:00 Blood Culture - Preliminary Blood No Growth after 96 hours 08/19/22 15:45 Blood Culture - Preliminary Blood No Growth after 96 hours Assessment and Plan Plan: Assessment: 1. Hypovolemic hyponatremia improving with IV hydration. Sodium level 131 today. Urine sodium 23 and urine osmolality 204. TSH normal. 2. Lower extremity cellulitis on antibiotics. ID following. 3. Benign hypertension. Stable. 4. Diabetes. 5. Pulmonary nodules. Pulmonary following. 6. Acute kidney injury mostly prerenal improved with IV hydration. GFR now at baseline. Plan: Maintain normal saline. 1200 mL fluid restriction. Encourage oral intake, especially protein. Repeat BMP and magnesium level 2-3 days postdischarge. Follow up outpatient in 1 week.
--- NOTE | 2022-08-24 13:56 | P.PN ---
Subjective Progress Note Date: 08/24/22 Principal diagnosis: Bilateral lower extremity cellulitis Patient is a 87 year old female with a past medical history significant for diabetes mellitus hypertension hyperlipidemia; coronary artery disease CVA TIA presented to the ER for evaluation of increase in shortness of breath and significant swelling to bilateral lower extremity, patient was have significant redness to the lower extremity as per the son who provided the history on 08/20/2022 concerning for cellulitis patient also have a CT of abdominal pelvis because of tenderness but no acute abnormality was noticed on the CAT scan On today's Evaluation that is 08/24/2022, the patient remains to be afebrile the patient is breathing comfortably on room air, the patient pain to bilateral lower extremity has decreased in intensity and the patient mentioning Hans wraps are helping her, no nausea no vomiting no abdominal pain no diarrhea Objective - Vital Signs Vital signs: Vital Signs Temp 97.4 F L 08/24/22 11:35 Pulse 68 08/24/22 11:35 Resp 19 08/24/22 11:35 BP 133/68 08/24/22 11:35 Pulse Ox 97 08/24/22 11:35 FiO2 Intake & Output 08/23/22 08/24/22 08/24/22 18:59 06:59 18:59 Intake Total 880 450 Output Total 1340 1550 900 Balance -460 -1100 -900 Weight 70.3 kg Intake: Intake, IV Titration 450 Amount Sodium Chloride 0.9% 1, 400 000 ml @ 50 mls/hr IV . Q20H ANDREW Rx#:[id number] ceFAZolin 2 gm In Sodium 50 Chloride 0.9% 50 ml @ 100 mls/hr IVPB Q12H ANDREW Rx# :[id number] Oral 880 Output: Urine 1340 1550 900 Other: Voiding Method Toilet # Voids 2 1 # Bowel Movements 1 - Exam GENERAL DESCRIPTION: An elderly female up in the chair RESPIRATORY SYSTEM: Unlabored breathing , decreased breath sounds at bases HEART: S1 S2 regular rate and rhythm , ABDOMEN: Soft , no tenderness EXTREMITIES: Bilateral lower extremity swelling has decreased bilateral legs are currently No drainage wrapped in Hans wrap - Labs CBC & Chem 7: 08/23/22 05:47 08/24/22 09:40 Labs: Abnormal Lab Results - Last 24 Hours (Table) 08/23/22 08/23/22 08/24/22 Range/Units 16:33 20:14 05:56 Sodium (137-145) mmol/L Chloride (98-107) mmol/L Glucose (74-99) mg/dL POC Glucose (mg/dL) 156 H 162 H 171 H (70-110) mg/dL 08/24/22 08/24/22 Range/Units 09:40 11:53 Sodium 131 L (137-145) mmol/L Chloride 97 L (98-107) mmol/L Glucose 185 H (74-99) mg/dL POC Glucose (mg/dL) 196 H (70-110) mg/dL Microbiology - Last 24 Hours (Table) 08/19/22 16:00 Blood Culture - Preliminary Blood No Growth after 96 hours 08/19/22 15:45 Blood Culture - Preliminary Blood No Growth after 96 hours Assessment and Plan (1) Cellulitis of right leg Status: Acute Code(s): L03.115 - CELLULITIS OF RIGHT LOWER LIMB SNOMED Code(s): 302951215 Plan: 1the patient is in the hospital with a increasing swelling to bilateral lower extremity and also having redness to the right lower extremity with concern for possible cellulitis likely from a gram-positive skin phillip 2patient seemed to have shown clinical improvement advised to continue with the calamine lotion Hans wrap and a short course of oral Keflex on discharge discussed with and nonprofit manager for admitting team working on discharge Time with Patient: Less than 30
--- NOTE | 2022-08-25 00:09 | DS ---
DISCHARGE SUMMARY FINAL DIAGNOSES: 1. Bilateral leg pain and swelling, possible leg cellulitis. 2. Severe hyponatremia, possibly secondary to hypovolemia. 3. Elevated lactic acid. 4. Coronary artery disease. 5. Diabetes mellitus, type 2. 6. Multiple medical issues. DISCHARGE DISPOSITION: The patient will be discharged in stable condition with guarded prognosis. HISTORY OF PRESENT ILLNESS: This 87-year-old woman with a past medical history of multiple medical problems, admitted with bilateral leg pain and hyponatremia. Sodium was 118; with IV fluids, sodium improved. PHYSICAL EXAMINATION: VITAL SIGNS: Stable. CARDIOVASCULAR: S1, S2. ABDOMEN: Soft. NERVOUS SYSTEM: Nonfocal. The patient was seen by Cardiology, Nephrology, and sodium improved to 131. Recommended periodic evaluation for sodium with Dr. Cameron in the outpatient setting. DISCHARGE ADVICE AND MEDICATIONS: 1. Continue the home medications and discontinue Avapro, Zaroxolyn, Lasix, and Norvasc, and initiate Norvasc 2.5 mg daily and Keflex 500 mg q.8 for 5 days. 2. Magnesium and senna. 3. Calamine lotion. 4. Follow up with Dr. Cameron, Dr. Snider, and Dr. Siddiqui. CBC and BMP with Dr. Cameron. Once again, the patient will be discharged in stable condition with guarded prognosis. Total time taken, 35 minutes. MMODL / IJN: [id number] /
--- NOTE | 2022-08-26 22:21 | CDI ---
Documentation Clarification Form Date: 08/26/2022 09:56:17 PM From: Lissa Purcell Phone: Admit Date: 08/19/2022 01:44:00 PM Patient Name: Praveena Brewster Visit Number: [id number] Discharge Date: 08/24/2022 01:03:00 PM ATTENTION: The Clinical Documentation Specialists (CDI) and [facility] Coding Staff appreciate your assistance in clarifying documentation. Please respond to the clarification below the line at the bottom and electronically sign. The CDI & [facility] Coding staff will review the response and follow-up if needed. Please note: Queries are made part of the Legal Health Record. If you have any questions, please contact the author of this message via ITS. Dr. Marshall Alcantara Your patient has the documented diagnosis of unspecified CHF per ED and Progress Notes. Additional information regarding the type and acuity of CHF is requested. History/Risk Factors: 87yo F, Bilateral leg pain and swelling, hyponatremia, hypovolemia, Elevated lactic acid, CAD w stent, DMII, HLD, CHF, HTN, EMILY Clinical Indicators: VS/Pulse OX: 94-100 BNP: 141 Echocardiogram Results: Normal LV systolic function. MR, TR, Chest X Ray: Chronic changes and mild cardiomegaly without acute pulmonary process. Treatment: Continue to hold Lasix and metolazone. Obtain 2-D echocardiogram to assess cardiac structure and function. Resume other home cardiac medications. Management of hyponatremia per medicine/nephrology. Further recommendations pending patient course Being closely monitored. In your professional opinion, can you please clarify the acuity and type of CHF if known? [ ] Chronic Systolic Heart Failure (reduced EF) [ ] Chronic Diastolic Heart Failure (preserved EF) [ ] Chronic Systolic & Diastolic Heart Failure [ ] Other, please specify [ ] Unable to determine (Template Last Revised: September 2020) Chronic Diastolic Heart Failure (preserved EF) MTDD
== END 2022-08-24 13:03 | disposition home or self-care (01) | DRG 641 ==
LOC: EC 10:24 → 3SCARD 13:44
PROVIDERS: ADMIT Hospitalist; ATTEND Hospitalist
DX: E87.1 Hypo-osmolality and hyponatremia (principal); L03.115 Cellulitis of right lower limb; N17.9 Acute kidney failure, unspecified; L03.116 Cellulitis of left lower limb; I50.32 Chronic diastolic (congestive) heart failure; M79.89 Other specified soft tissue disorders; E86.1 Hypovolemia; I25.10 Atherosclerotic heart disease of native coronary artery without angina pectoris; E11.9 Type 2 diabetes mellitus without complications; I11.0 Hypertensive heart disease with heart failure; E78.5 Hyperlipidemia, unspecified; H91.90 Unspecified hearing loss, unspecified ear; H54.8 Legal blindness, as defined in USA; H35.30 Unspecified macular degeneration; E89.0 Postprocedural hypothyroidism; I45.10 Unspecified right bundle-branch block; K44.9 Diaphragmatic hernia without obstruction or gangrene; E86.0 Dehydration; I65.29 Occlusion and stenosis of unspecified carotid artery; R79.89 Other specified abnormal findings of blood chemistry; K30 Functional dyspepsia; R91.8 Other nonspecific abnormal finding of lung field; I08.3 Combined rheumatic disorders of mitral, aortic and tricuspid valves; Z20.822 Contact with and (suspected) exposure to COVID-19; Z79.899 Other long term (current) drug therapy; Z79.84 Long term (current) use of oral hypoglycemic drugs; Z79.890 Hormone replacement therapy; Z79.82 Long term (current) use of aspirin; Z79.02 Long term (current) use of antithrombotics/antiplatelets; Z91.018 Allergy to other foods; Z91.048 Other nonmedicinal substance allergy status; I25.2 Old myocardial infarction; I69.312 Visuospatial deficit and spatial neglect following cerebral infarction; Z95.5 Presence of coronary angioplasty implant and graft
CPT/HCPCS: 36415; 71046; 71275; 74176; 80048; 80053; 81003; 82150; 82533; 83605; 83690; 83735; 83880; 83930; 83935; 84133; 84145; 84300; 84443; 84484; 84550; 85025; 85379; 85610; 85730; 86140; 87040; 87636; 93005; 93306; 94760; 96365; 96375; 96376; 99285

== ENCOUNTER 2022-09-28 14:05 | Emergency (ER) | payer MEDICARE, BC ==
[2022-09-28 14:15] VITALS: TEMP 98.2
--- NOTE | 2022-09-28 15:01 | XR ---
EXAMINATION TYPE: XR chest 2V DATE OF EXAM: 09/28/2022 2:57 PM COMPARISON: Chest radiographs from 08/20/2022 TECHNIQUE: XR chest 2V Frontal and lateral views of the chest. CLINICAL INDICATION:Female, 87 years old with history of altered mental status; FINDINGS: Lungs/Pleura: There is no evidence of pleural effusion, focal consolidation, or pneumothorax. Pulmonary vascularity: Unremarkable. Heart/mediastinum: Cardiomediastinal silhouette is enlarged and stable. Musculoskeletal: Multiple level degenerative disc disease changes seen throughout the spine. IMPRESSION: No acute cardiopulmonary disease/process.
--- NOTE | 2022-09-28 15:02 | CT ---
EXAMINATION TYPE: CT brain wo con DATE OF EXAM: 09/28/2022 COMPARISON: 09/22/22 HISTORY: Neuro deficits. CT DLP: 1129.[address] of the brain was performed. The ventricles, basal cisterns and sulci overlying the cerebral convexities demonstrate mild enlargem ent. There is no evidence for intracranial hemorrhage or sulcal effacement. There is decreased attenuation about the periventricular white matter and deep white matter of both c erebral hemispheres, compatible with chronic small vessel ischemia. Differential diagnosis does inclu de demyelination. No mass effects are seen.No midline shift. Osseous calvarium is intact. If symptoms persist consider MRI. IMPRESSION: 1. Age related atrophic and chronic small vessel ischemic change without acute intracranial process s een at this time.
--- NOTE | 2022-09-28 15:25 | ED ---
General Adult HPI - General Chief complaint: Neuro Symptoms/Deficit Stated complaint: slurring words, poss stroke Time Seen by Provider: 09/28/22 14:17 Source: patient, RN notes reviewed, old records reviewed Mode of arrival: ambulatory Limitations: no limitations - History of Present Illness Initial comments: This is an 87-year-old female presents emergency department because earlier today she had a 5 minute episode where she had slurred speech and was a little confused. According to the brother once it was over she was back to herself and able to answer all questions appropriately. Patient is a symptomatically currently. Patient denies any numbness weakness. Patient is a diabetic but she states she did eat a few hours before and then took her medications. Patient denies any recent fever chills or cough. Patient denies any changes in me dication. Patient denies any chest pain difficulty breathing first breath produces any palpitations per patient denies any abdominal pain patient denies nausea vomiting diarrhea. Son is in the room and states he does not notice any difference from her baseline - Related Data Home Medications Medication Instructions Recorded Confirmed Vits A,C,E/Lutein/Minerals 1 tab PO BID 05/03/16 08/19/22 [Ocuvite with Lutein Tablet] Levothyroxine Sodium [Synthroid] 88 mcg PO DAILY 05/31/17 08/19/22 Glimepiride [Amaryl] 1 mg PO DAILY 04/28/18 08/19/22 metFORMIN HCL [Glucophage] 500 mg PO BID 04/28/18 08/19/22 Gabapentin [Neurontin] 200 mg PO BID PRN 05/25/20 08/19/22 Atorvastatin [Lipitor] 40 mg PO DAILY 03/26/21 08/19/22 Aspirin EC [Ecotrin Low Dose] 81 mg PO DAILY 07/19/21 08/19/22 Famotidine 20 mg PO BID 07/19/21 08/19/22 Isosorbide Mononitrate ER [Imdur] 30 mg PO DAILY 07/19/21 08/19/22 Metoprolol Tartrate [Lopressor] 50 mg PO BID 07/19/21 08/19/22 Cholecalciferol [Vitamin D3 (25 25 mcg PO BID 08/19/22 08/19/22 Mcg = 1000 Iu)] Fluticasone Nasal Woodman [Flonase 2 spray EA NOSTRIL DAILY PRN 08/19/22 08/19/22 Nasal Woodman] Previous Rx's Medication Instructions Recorded ALPRAZolam [Xanax] 0.25 mg PO DAILY PRN #30 06/05/17 Clopidogrel [Plavix] 75 mg PO DAILY #30 tab 05/28/20 Calamine/Zinc Oxide Lotion 1 applic TOPICAL BID #1 each 08/24/22 [Calamine Lotion] Cephalexin [Keflex] 500 mg PO Q8HR 5 Days #15 cap 08/24/22 Magnesium Hydroxide [Milk of 2,400 mg PO DAILY PRN ml 08/24/22 Magnesia Concentrate] Sennosides [Senokot] 8.6 mg PO BID PRN #20 tab 08/24/22 amLODIPine [Norvasc] 2.5 mg PO DAILY 30 Days #30 tab 08/24/22 Allergies Allergy/AdvReac Type Severity Reaction Status Date / Time aspartame Allergy Severe Swelling Verified 09/28/22 14:15 PAPER TAPE AdvReac Unknown Rash/Hives Uncoded 09/28/22 14:15 Review of Systems ROS Statement: Those systems with pertinent positive or pertinent negative responses have been documented in the HPI. ROS Other: All systems not noted in ROS Statement are negative. 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 Last Myocardial Infarction Date:: 09/2018 History of Any Multi-Drug Resistant Organisms: None Reported Past Surgical History: Back Surgery, Breast Surgery, Heart Catheterization With Stent, Hysterectomy, Orthopedic Surgery, Tubal Ligation Additional Past Surgical History / Comment(s): PCI with a total of 7 stents, low back surgery, L breast benign bx, R rotator cuff repair, R eye cataract removed, multiple bilateral laser eye surgeries, bilateral eye stents-R one fell out, thyroidectomy d/t nodules, temporal artery bx, cervical and lumbar injections. Past Anesthesia/Blood Transfusion Reactions: Previous Problems w/ Anesthesia Additional Past Anesthesia/Blood Transfusion Reaction / Comment(s): hard to wake up Date of Last Stent Placement:: 10/19/18 Past Psychological History: Anxiety Smoking Status: Never smoker Past Alcohol Use History: None Reported Past Drug Use History: None Reported - Past Family History Mother Family Medical History: Myocardial Infarction (GA) Additional Family Medical History / Comment(s): MOTHER OF A GA AT THE AGE OF 57YRS. Brother(s) Family Medical History: Myocardial Infarction (GA) Additional Family Medical History / Comment(s): BROTHER OF A GA AT THE AGE OF 60YRS. Father Family Medical History: No Reported History Additional Family Medical History / Comment(s): FATHER LIVED TO BE 90YRS OLD. General Exam - General Exam Comments Initial Comments: GENERAL: Patient is well-developed and well-nourished. Patient is nontoxic and well- hydrated and is in no acute distress. ENT: Neck is soft and supple. No significant lymphadenopathy is noted. Oropharynx is clear. Moist mucous membranes. Neck has full range of motion without eliciting any pain. EYES: The sclera were anicteric and conjunctiva were pink and moist. Extraocular movements were intact and pupils were equal round and reactive to light. Eyelids were unremarkable. PULMONARY: Unlabored respirations. Good breath sounds bilaterally. No audible rales rhonchi or wheezing was noted. CARDIOVASCULAR: There is a regular rate and rhythm without any murmurs gallops or rubs. ABDOMEN: Soft and nontender with normal bowel sounds. SKIN: Skin is clear with no lesions or rashes and otherwise unremarkable. NEUROLOGIC: Patient is alert and oriented x3. Cranial nerves II through XII are grossly intact. Patient has some weakness on the left arm and leg however she states t his is from a previous stroke there is no new weakness per the patient. Normal speech, volume and content. Symmetrical smile. MUSCULOSKELETAL: Normal extremities with adequate strength and full range of motion. No lower extremity swelling or edema. No calf tenderness. LYMPHATICS: No significant lymphadenopathy is noted PSYCHIATRIC: Normal psychiatric evaluation. Limitations: no limitations Course Vital Signs 09/28/22 09/28/22 09/28/22 14:12 15:00 15:15 Temperature 98.2 F Pulse Rate 63 62 66 Respiratory 16 18 18 Rate Blood Pressure 189/73 160/78 164/78 O2 Sat by Pulse 99 98 98 Oximetry 09/28/22 09/28/22 15:30 16:00 Temperature Pulse Rate 68 70 Respiratory 18 18 Rate Blood Pressure 160/74 163/72 O2 Sat by Pulse 98 98 Oximetry Medical Decision Making - Medical Decision Making Was pt. sent in by a medical professional or institution ([facility], [facility]IN[facility] UP, urgent care, hospital, or senior care...) When possible be specific @ -No Did you speak to anyone other than the patient for history (EMS, parent, family, police, friend...)? What history was obtained from this source @ -EMS gave part of the history as did the son because the patient does not remember when she had slurred speech. Did you review nursing and triage notes (agree or disagree)? Why? @ -I reviewed and agree with nursing and triage notes Were old charts reviewed (outside hosp., previous admission, EMS record, old EKG, old radiological studies, urgent care reports/EKG's, senior care records)? Report findings @ -I reviewed previous radiological studies previous lab work Differential Diagnosis (chest pain, altered mental status, abdominal pain women, abdominal pain men, vaginal bleeding, weakness, fever, dyspnea, syncope, headache, dizziness, GI bleed, back pain, seizure, CVA, palpatations, mental health)? @ -Differential Altered Mental Status: Hypoglycemia, DKA, hypercapnia, ETOH, overdose, CO poisoning, trauma, myxedema coma, HTN encephalopathy, infection, encephalitis, psychosis, intercranial hemorrhage, hepatic encephalopathy, meningitis, CVA, this is not meant to be an all-inclusive list EKG interpreted by me (3pts min.). @ -As above X-rays interpreted by me (1pt min.). @ -Chest x-ray was interpreted by myself. Chest x-ray shows no acute abnormality CT interpreted by me (1pt min.). @ -CT of the head shows no acute abnormality and it was interpreted by myself U/S interpreted by me (1pt. min.). @ -None done What testing was considered but not performed or refused? (CT, X-rays, U/S, labs)? Why? @ -None What meds were considered but not given or refused? Why? @ -None Did you discuss the management of the patient with other professionals (professionals i.e. Dr., PA, MACHINIST SET UP, lab, RT, psych nurse, licensed master social worker, powerplant operator, teacher, sports development officer, case hardener)? Give summary @ -No Was smoking cessation discussed for >3mins.? @ -No Was critical care preformed (if so, how long)? @ -No Were there social determinants of health that impacted care today? How? (Homelessness, low income, unemployed, alcoholism, drug addiction, transportation, low edu. Level, literacy, decrease access to med. care, snf, rehab)? @ -No Was there de-escalation of care discussed even if they declined (Discuss DNR or withdrawal of care, Hospice)? DNR status @ -No What co-morbidities impacted this encounter? (DM, HTN, Smoking, COPD, CAD, Cancer, CVA, ARF, Chemo, Hep., AIDS, mental health diagnosis, sleep apnea, morbid obesity)? @ -None Was patient admitted / discharged? Hospital course, mention meds given and route, prescriptions, significant lab abnormalities, going to OR and other pertinent info. @ -Patient's CAT scan of the head was normal patient's been asymptomatic since arriving at the ER. Because I did not have a exact explanation as to what had occurred with the patient I recommended admission and a consult with neurology. Patient did not want to stay and she stated she had plans for tomorrow and she would return if any symptoms recur the son was in the room he was in agreement with this. Undiagnosed new problem with uncertain prognosis? @ -No Drug Therapy requiring intensive monitoring for toxicity (Heparin, Nitro, Insulin, Cardizem)? @ -No Were any procedures done? @ -No Diagnosis/symptom? @ -TIA Acute, or Chronic, or Acute on Chronic? @ -Acute Uncomplicated (without systemic symptoms) or Complicated (systemic symptoms)? @ -Uncomplicated Side effects of treatment? @ -No Exacerbation, Progression, or Severe Exacerbation? @ -No Poses a threat to life or bodily function? How? (Chest pain, [place], GA, pneumonia, PE, COPD, DKA, ARF, appy, cholecystitis, CVA, Diverticulitis, Homicidal, Suicidal, threat to staff... and all critical care pts) @ -No - Lab Data Result diagrams: 09/28/22 15:13 09/28/22 15:13 Lab Results 09/28/22 09/28/2209/28/23 Range/Units 15:13 15:13 15:13 WBC 7.0 (3.8-10.6) k/uL RBC 4.62 (3.80-5.40) m/uL Hgb 13.4 (11.4-16.0) gm/dL Hct 39.9 (34.0-46.0) % MCV 86.3 (80.0-100.0) fL MCH 29.0 (25.0-35.0) pg MCHC 33.6 (31.0-37.0) g/dL RDW 12.9 (11.5-15.5) % Plt Count 288 (150-450) k/uL MPV 7.6 Neutrophils % 50 % Lymphocytes % 34 % Monocytes % 6 % Eosinophils % 5 % Basophils % 1 % Neutrophils # 3.5 (1.3-7.7) k/uL Lymphocytes # 2.4 (1.0-4.8) k/uL Monocytes # 0.4 (0-1.0) k/uL Eosinophils # 0.3 (0-0.7) k/uL Basophils # 0.1 (0-0.2) k/uL PT 9.6 (9.0-12.0) sec INR 0.9 (<1.2) APTT 24.5 (22.0-30.0) sec Sodium 136 L (137-145) mmol/L Potassium 4.6 (3.5-5.1) mmol/L Chloride 99 (98-107) mmol/L Carbon Dioxide 30 (22-30) mmol/L Anion Gap 7 mmol/L BUN 21 H (7-17) mg/dL Creatinine 0.99 (0.52-1.04) mg/dL Est GFR (CKD-EPI)AfAm 59 (>60 ml/min/1.73 sqM) Est GFR (CKD-EPI)NonAf 51 (>60 ml/min/1.73 sqM) Glucose 108 H (74-99) mg/dL Calcium 9.1 (8.4-10.2) mg/dL Total Bilirubin 0.3 (0.2-1.3) mg/dL AST 19 (14-36) U/L ALT 19 (4-34) U/L Alkaline Phosphatase 152 H (38-126) U/L Troponin I (0.000-0.034) ng/mL Total Protein 7.2 (6.3-8.2) g/dL Albumin 4.4 (3.5-5.0) g/dL 09/28/22 Range/Units 15:13 WBC (3.8-10.6) k/uL RBC (3.80-5.40) m/uL Hgb (11.4-16.0) gm/dL Hct (34.0-46.0) % MCV (80.0-100.0) fL MCH (25.0-35.0) pg MCHC (31.0-37.0) g/dL RDW (11.5-15.5) % Plt Count (150-450) k/uL MPV Neutrophils % % Lymphocytes % % Monocytes % % Eosinophils % % Basophils % % Neutrophils # (1.3-7.7) k/uL Lymphocytes # (1.0-4.8) k/uL Monocytes # (0-1.0) k/uL Eosinophils # (0-0.7) k/uL Basophils # (0-0.2) k/uL PT (9.0-12.0) sec INR (<1.2) APTT (22.0-30.0) sec Sodium (137-145) mmol/L Potassium (3.5-5.1) mmol/L Chloride (98-107) mmol/L Carbon Dioxide (22-30) mmol/L Anion Gap mmol/L BUN (7-17) mg/dL Creatinine (0.52-1.04) mg/dL Est GFR (CKD-EPI)AfAm (>60 ml/min/1.73 sqM) Est GFR (CKD-EPI)NonAf (>60 ml/min/1.73 sqM) Glucose (74-99) mg/dL Calcium (8.4-10.2) mg/dL Total Bilirubin (0.2-1.3) mg/dL AST (14-36) U/L ALT (4-34) U/L Alkaline Phosphatase (38-126) U/L Troponin I <0.012 (0.000-0.034) ng/mL Total Protein (6.3-8.2) g/dL Albumin (3.5-5.0) g/dL Disposition Clinical Impression: Transient cerebral ischemia Disposition: HOME SELF-CARE Condition: Good Instructions (If sedation given, give patient instructions): Transient Ischemic Attack (ED) Is patient prescribed a controlled substance at d/c from ED?: No Referrals: Anthony Cameron MD [Primary Care Provider] - 1-2 days Time of Disposition: 17:00
[2022-09-28 15:26] LABS: Basophils # (A) 0.1 k/uL (0-0.2); Basophils % (A) 1 %; Eosinophils # (A) 0.3 k/uL (0-0.7); Eosinophils % (A) 5 %; HCT 39.9 % (34.0-46.0); HGB 13.4 gm/dL (11.4-16.0); Lymphocytes # (A) 2.4 k/uL (1.0-4.8); Lymphocytes % (A) 34 %; MCHC 33.6 g/dL (31.0-37.0); MCV 86.3 fL (80.0-100.0); Mean Platelet Volume 7.6; Monocytes # (A) 0.4 k/uL (0-1.0); Monocytes % (A) 6 %; Neutrophils # (A) 3.5 k/uL (1.3-7.7); Neutrophils % (A) 50 %; Platelet Count 288 k/uL (150-450); RBC 4.62 m/uL (3.80-5.40); RDW 12.9 % (11.5-15.5)
[2022-09-28 15:29] VITALS: RESP 18
[2022-09-28 15:37] LABS: INR 0.9 (<1.2); Partial Thromboplastin Time 24.5 sec (22.0-30.0); Prothrombin Time 9.6 sec (9.0-12.0)
[2022-09-28 15:47] LABS: Albumin 4.4 g/dL (3.5-5.0); Calcium 9.1 mg/dL (8.4-10.2); Potassium 4.6 mmol/L (3.5-5.1); Total Bilirubin 0.3 mg/dL (0.2-1.3); Total Protein 7.2 g/dL (6.3-8.2)
[2022-09-28] MEDS ORDERED: ASPIRIN-ACET-CAFF 250-250-65MG 1 EACH TAB PO PRN (16:49)
[2022-09-28 17:34] VITALS: BP 163/75; PULSE 75
== END 2022-09-28 17:34 | disposition home or self-care (01) ==
LOC: EC 14:05
DX: I99.8 Other disorder of circulatory system (principal); I10 Essential (primary) hypertension; I25.10 Atherosclerotic heart disease of native coronary artery without angina pectoris; I25.2 Old myocardial infarction; K21.9 Gastro-esophageal reflux disease without esophagitis; E11.36 Type 2 diabetes mellitus with diabetic cataract; E78.5 Hyperlipidemia, unspecified; F41.9 Anxiety disorder, unspecified; E07.9 Disorder of thyroid, unspecified; Z79.02 Long term (current) use of antithrombotics/antiplatelets; Z79.82 Long term (current) use of aspirin; Z79.84 Long term (current) use of oral hypoglycemic drugs; Z79.890 Hormone replacement therapy; Z79.899 Other long term (current) drug therapy; Z88.8 Allergy status to other drugs, medicaments and biological substances
CPT/HCPCS: 36415; 70450; 71046; 80053; 84484; 85025; 85610; 85730; 93005; 99284

== ENCOUNTER 2022-11-09 16:31 | Inpatient (IN) | payer MEDICARE, BC ==
[2022-11-09] MEDS ORDERED: ASPIRIN 81 MG PO STA (16:47)
[2022-11-09] MEDS ORDERED: NITROGLYCERIN SL TABS 0.4 MG TAB SUBLINGUAL STA ×3 (16:47)
[2022-11-09 16:48] LABS: Glucose,Whole Blood 171 mg/dL (70-110)
--- NOTE | 2022-11-09 16:51 | ED ---
General Adult HPI - General Stated complaint: Chest Pain/SOB Time Seen by Provider: 11/09/22 16:46 Source: patient, family, RN notes reviewed Mode of arrival: wheelchair Limitations: no limitations - History of Present Illness Initial comments: Patient is a pleasant 87-year-old female presenting to the emergency department with complaints of chest discomfort. Onset of symptoms was around 10 minutes prior to arrival. In route to the room patient had a syncopal episode. Patient became responsive after less than a minute. Patient is still having chest discomfort. Patient has difficult time describing her symptoms. Family is present and states this started just 10 minutes prior to arrival. Patient does have cardiac history with history of 7 previous stents. Patient denies any headache or new weakness. Patient does feel a little bit short of breath. No nausea or diaphoresis. - Related Data Home Medications Medication Instructions Recorded Confirmed Vits A,C,E/Lutein/Minerals 1 tab PO BID 05/03/16 11/09/22 [Ocuvite with Lutein Tablet] Levothyroxine Sodium [Synthroid] 88 mcg PO DAILY 05/31/17 11/09/22 Glimepiride [Amaryl] 1 mg PO DAILY 04/28/18 11/09/22 metFORMIN HCL [Glucophage] 500 mg PO BID 04/28/18 11/09/22 Gabapentin [Neurontin] 200 mg PO BID PRN 05/25/20 11/09/22 Atorvastatin [Lipitor] 40 mg PO DAILY 03/26/21 11/09/22 Aspirin EC [Ecotrin Low Dose] 81 mg PO DIRECTED 07/19/21 11/09/22 Famotidine 20 mg PO BID 07/19/21 11/09/22 Isosorbide Mononitrate ER [Imdur] 30 mg PO DAILY 07/19/21 11/09/22 Metoprolol Tartrate [Lopressor] 50 mg PO BID 07/19/21 11/09/22 Cholecalciferol [Vitamin D3 (25 25 mcg PO BID 08/19/22 11/09/22 Mcg = 1000 Iu)] Fluticasone Nasal [place] [Flonase 2 spray EA NOSTRIL DAILY PRN 08/19/22 11/09/22 Nasal [place]] Clopidogrel [Plavix] 75 mg PO DIRECTED 11/09/22 11/09/22 Previous Rx's Medication Instructions Recorded ALPRAZolam [Xanax] 0.25 mg PO DAILY PRN #30 06/05/17 Sennosides [Senokot] 8.6 mg PO BID PRN #20 tab 08/24/22 Meloxicam [Mobic] 7.5 mg PO DAILY #20 tab 10/17/22 Baclofen [Lioresal] 5 mg PO TID #30 tablet 10/18/22 amLODIPine [Norvasc] 5 mg PO DAILY #30 tab 10/18/22 Allergies Allergy/AdvReac Type Severity Reaction Status Date / Time aspartame Allergy Severe Swelling Verified 11/09/22 17:24 PAPER TAPE Allergy Unknown Rash/Hives Uncoded 11/09/22 17:24 Review of Systems ROS Statement: Those systems with pertinent positive or pertinent negative responses have been documented in the HPI. ROS Other: All systems not noted in ROS Statement are negative. Constitutional: Denies: fever Eyes: Denies: eye pain ENT: Denies: ear pain Respiratory: Denies: cough Cardiovascular: Reports: as per HPI, chest pain Endocrine: Denies: fatigue Gastrointestinal: Denies: abdominal pain Genitourinary: Denies: urgency Musculoskeletal: Denies: back pain Skin: Denies: rash Neurological: Denies: headache, weakness, confusion Past Medical History Past Medical History: Coronary Artery Disease (CAD), CVA/TIA, Diabetes Mellitus, Eye Disorder, GERD/Reflux, Hearing Disorder / Deafness, Hyperlipidemia, Hypertension, Myocardial Infarction ([place]), Osteoarthritis (OA), Pneumonia, Thyroid Disorder Additional Past Medical History / Comment(s): EPISODES OF ANGIOEDEMA, NIDDM TYPE II, 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 kidney functions being checked at home per nephrology. Last Myocardial Infarction Date:: 09/2018 History of Any Multi-Drug Resistant Organisms: None Reported Past Surgical History: Back Surgery, Breast Surgery, Heart Catheterization With Stent, Hysterectomy, Orthopedic Surgery, Tubal Ligation Additional Past Surgical History / Comment(s): PCI with a total of 7 stents, low back surgery, L breast benign bx, R rotator cuff repair, R eye cataract removed, multiple bilateral laser eye surgeries, bilateral eye stents-R one fell out, thyroidectomy d/t nodules, temporal artery bx, cervical and lumbar injections. Past Anesthesia/Blood Transfusion Reactions: Previous Problems w/ Anesthesia Additional Past Anesthesia/Blood Transfusion Reaction / Comment(s): hard to wake up Date of Last Stent Placement:: 10/19/18 Past Psychological History: Anxiety Additional Psychological History / Comment(s): Pt has her son, Geoffrey residing with her. She is visually impaired, reads with a lighted magnifying screen. She signs her name occasionally. She is able to manage her own medications. Her sons take her to appts. She ambulates with a walker. Smoking Status: Never smoker Past Alcohol Use History: None Reported Past Drug Use History: None Reported - Past Family History Mother Family Medical History: Myocardial Infarction ([place]) Additional Family Medical History / Comment(s): MOTHER OF A DE AT THE AGE O F 57YRS. Brother(s) Family Medical History: Myocardial Infarction ([place]) Additional Family Medical History / Comment(s): BROTHER OF A DE AT THE AGE OF 60YRS. Father Family Medical History: No Reported History Additional Family Medical History / Comment(s): FATHER LIVED TO BE 90YRS OLD. General Exam Limitations: no limitations General appearance: alert, in no apparent distress Head exam: Present: atraumatic, normocephalic Eye exam: Present: normal appearance, PERRL, EOMI ENT exam: Present: normal oropharynx Neck exam: Present: normal inspection. Absent: tenderness Respiratory exam: Present: normal lung sounds bilaterally Cardiovascular Exam: Present: regular rate, normal rhythm Expanded Peripheral pulses: 2+: Radial (R), Radial (L), Dorsalis Pedis (R), Dorsalis Pedis (L) GI/Abdominal exam: Present: soft. Absent: tenderness, pulsatile mass Extremities exam: Present: normal inspection. Absent: pedal edema, calf tenderness Neurological exam: Present: alert, CN II-XII intact. Absent: motor sensory deficit Expanded Neurological exam: Present: protecting the airway Motor strength exam: RUE: 5, LUE: 5, RLE: 5, LLE: 5 Eye Response: (4) open spontaneously Motor Response: (6) obeys commands Verbal Response: (5) oriented Psychiatric exam: Present: normal affect, normal mood Skin exam: Present: normal color Course Vital Signs 11/09/22 11/09/22 11/09/22 16:38 17:01 17:08 Temperature 97.5 F L Pulse Rate 75 73 85 Respiratory 18 18 18 Rate Blood Pressure 205/87 202/84 163/79 O2 Sat by Pulse 100 100 100 Oximetry 11/09/22 11/09/22 17:36 18:28 Temperature Pulse Rate 84 71 Respiratory 18 Rate Blood Pressure 147/83 189/79 O2 Sat by Pulse 95 99 Oximetry - Reevaluation(s) Reevaluation #1: 11/09/22 16:51 EKG #2 interpreted by myself shows sinus rhythm at 77. Normal axis. Right bundle branch block. No acute ST change. EKG Findings - EKG Results: EKG: interpreted by ERMD (Right bundle-branch block.), sinus rhythm, normal axis, normal ST/T Medical Decision Making - Medical Decision Making Was pt. sent in by a medical professional or institution (, PA, TASSEL MAKING MACHINE OPERATOR, urgent care, hospital, or [facility]...) When possible be specific @ -No Did you speak to anyone other than the patient for history (EMS, parent, family, police, friend...)? What history was obtained from this source @ -Family is present to help provide history as patient had a syncopal episode upon arrival to the room Did you review nursing and triage notes (agree or disagree)? Why? @ -I reviewed and agree with nursing and triage notes Were old charts reviewed (outside hosp., previous admission, EMS record, old EKG, old radiological studies, urgent care reports/EKG's, [facility] records)? Report findings @ -No old charts were reviewed Differential Diagnosis (chest pain, altered mental status, abdominal pain women, abdominal pain men, vaginal bleeding, weakness, fever, dyspnea, syncope, headache, dizziness, GI bleed, back pain, seizure, CVA, palpatations, mental health)? @ -Differential Chest Pain: Stable Angina, Unstable Angina, STEMI, NSTEMI Aortic Dissection, Pneumothorax, Musculoskeletal, Esophageal Spasm GERD, Cholecystitis, Pancreatitis, Zoster, this is not meant to be an all-inclusive list. EKG interpreted by me (3pts min.). @ -As above X-rays interpreted by me (1pt min.). @ -Chest x-ray does show some interstitial changes CT interpreted by me (1pt min.). @ -Report reviewed U/S interpreted by me (1pt. min.). @ -None done What testing was considered but not performed or refused? (CT, X-rays, U/S, labs)? Why? @ -None What meds were considered but not given or refused? Why? @ -None Did you discuss the management of the patient with other professionals (pro fessionals i.e. , PA, TASSEL MAKING MACHINE OPERATOR, lab, RT, psych nurse, bilingual social worker, sound engineer, teacher, project control officer, case management social worker)? Give summary @ -Case was discussed with practitioner Zahria Wilson will admit covered with Dr. Menard, who admits for Dr. Cameron. Was smoking cessation discussed for >3mins.? @ -No Was critical care preformed (if so, how long)? @ -No Were there social determinants of health that impacted care today? How? (Homelessness, low income, unemployed, alcoholism, drug addiction, transportation, low edu. Level, literacy, decrease access to med. care, longterm, rehab)? @ -No Was there de-escalation of care discussed even if they declined (Discuss DNR or withdrawal of care, Hospice)? DNR status @ -No What co-morbidities impacted this encounter? (DM, HTN, Smoking, COPD, CAD, Cancer, CVA, ARF, Chemo, Hep., AIDS, mental health diagnosis, sleep apnea, morbid obesity)? @ -None Was patient admitted / discharged? Hospital course, mention meds given and route, prescriptions, significant lab abnormalities, going to OR and other pertinent info. @ -Patient reevaluated and states she feels much better after going to the bathroom. Patient does not have significant discomfort at this time. Patient and family updated on results and plan. Chest x-ray will be repeated tomorrow as I do have low suspicion clinically for pneumonia on this patient and patient will need cardiac evaluation. Undiagnosed new problem with uncertain prognosis? @ -No Drug Therapy requiring intensive monitoring for toxicity (Heparin, Nitro, Insulin, Cardizem)? @ -No Were any procedures done? @ -No Diagnosis/symptom? @ -Chest pain, syncope Acute, or Chronic, or Acute on Chronic? @ -Acute, acute Uncomplicated (without systemic symptoms) or Complicated (systemic symptoms)? @ -default Side effects of treatment? @ -No Exacerbation, Progression, or Severe Exacerbation? @ -No Poses a threat to life or bodily function? How? (Chest pain, [place], [place], pneumonia, PE, COPD, DKA, ARF, appy, cholecystitis, CVA, Diverticulitis, Homicidal, Suicidal, threat to staff... and all critical care pts) @ -No - Lab Data Result diagrams: 11/09/22 16:56 11/09/22 16:56 Lab Results 11/09/22 11/09/22 11/09/22 Range/Units 16:39 16:56 16:56 WBC 7.0 (3.8-10.6) k/uL RBC 4.67 (3.80-5.40) m/uL Hgb 14.0 (11.4-16.0) gm/dL Hct 41.5 (34.0-46.0) % MCV 88.7 (80.0-100.0) fL MCH 30.0 (25.0-35.0) pg MCHC 33.8 (31.0-37.0) g/dL RDW 13.4 (11.5-15.5) % Plt Count 355 (150-450) k/uL MPV 7.9 Neutrophils % 50 % Lymphocytes % 37 % Monocytes % 7 % Eosinophils % 2 % Basophils % 1 % Neutrophils # 3.5 (1.3-7.7) k/uL Lymphocytes # 2.6 (1.0-4.8) k/uL Monocytes # 0.5 (0-1.0) k/uL Eosinophils # 0.1 (0-0.7) k/uL Basophils # 0.1 (0-0.2) k/uL PT 9.8 (9.0-12.0) sec INR 0.9 (<1.2) APTT 24.1 (22.0-30.0) sec D-Dimer 0.65 H (<0.60) mg/L FEU Sodium (137-145) mmol/L Potassium (3.5-5.1) mmol/L Chloride (98-107) mmol/L Carbon Dioxide (22-30) mmol/L Anion Gap mmol/L BUN (7-17) mg/dL Creatinine (0.52-1.04) mg/dL Est GFR (CKD-EPI)AfAm (>60 ml/min/1.73 sqM) Est GFR (CKD-EPI)NonAf (>60 ml/min/1.73 sqM) Glucose (74-99) mg/dL POC Glucose (mg/dL) 171 H (70-110) mg/dL POC Glu Material Checker ID Deborah Wilson Calcium (8.4-10.2) mg/dL Magnesium (1.6-2.3) mg/dL Total Bilirubin (0.2-1.3) mg/dL AST (14-36) U/L ALT (4-34) U/L Alkaline Phosphatase (38-126) U/L Troponin I (0.000-0.034) ng/mL NT-Pro-B Natriuret Pep pg/mL Total Protein (6.3-8.2) g/dL Albumin (3.5-5.0) g/dL Amylase (30-110) U/L Lipase (23-300) U/L 11/09/22 11/09/22 11/09/22 Range/Units 16:56 16:56 16:56 WBC (3.8-10.6) k/uL RBC (3.80-5.40) m/uL Hgb (11.4-16.0) gm/dL Hct (34.0-46.0) % MCV (80.0-100.0) fL MCH (25.0-35.0) pg MCHC (31.0-37.0) g/dL RDW (11.5-15.5) % Plt Count (150-450) k/uL MPV Neutrophils % % Lymphocytes % % Monocytes % % Eosinophils % % Basophils % % Neutrophils # (1.3-7.7) k/uL Lymphocytes # (1.0-4.8) k/uL Monocytes # (0-1.0) k/uL Eosinophils # (0-0.7) k/uL Basophils # (0-0.2) k/uL PT (9.0-12.0) sec INR (<1.2) APTT (22.0-30.0) sec D-Dimer (<0.60) mg/L FEU Sodium 133 L (137-145) mmol/L Potassium 4.9 (3.5-5.1) mmol/L Chloride 97 L (98-107) mmol/L Carbon Dioxide 23 (22-30) mmol/L Anion Gap 13 mmol/L BUN 18 H (7-17) mg/dL Creatinine 0.74 (0.52-1.04) mg/dL Est GFR (CKD-EPI)AfAm 84 (>60 ml/min/1.73 sqM) Est GFR (CKD-EPI)NonAf 73 (>60 ml/min/1.73 sqM) Glucose 153 H (74-99) mg/dL POC Glucose (mg/dL) (70-110) mg/dL POC Glu Material Checker ID Calcium 8.9 (8.4-10.2) mg/dL Magnesium 1.8 (1.6-2.3) mg/dL Total Bilirubin 0.4 (0.2-1.3) mg/dL AST 21 (14-36) U/L ALT 25 (4-34) U/L Alkaline Phosphatase 174 H (38-126) U/L Troponin I <0.012 (0.000-0.034) ng/mL NT-Pro-B Natriuret Pep 105 pg/mL Total Protein 7.2 (6.3-8.2) g/dL Albumin 4.6 (3.5-5.0) g/dL Amylase 54 (30-110) U/L Lipase 92 (23-300) U/L Disposition Clinical Impression: Chest pain, Syncope Disposition: ADMITTED IP TO THIS HOSP Is patient prescribed a controlled substance at d/c from ED?: No Referrals: Anthony Cameron MD [Primary Care Provider] - 1-2 days Time of Disposition: 19:24
[2022-11-09 17:33] LABS: Basophils # (A) 0.1 k/uL (0-0.2); Basophils % (A) 1 %; Eosinophils # (A) 0.1 k/uL (0-0.7); Eosinophils % (A) 2 %; HCT 41.5 % (34.0-46.0); Lymphocytes # (A) 2.6 k/uL (1.0-4.8); Lymphocytes % (A) 37 %; MCHC 33.8 g/dL (31.0-37.0); MCV 88.7 fL (80.0-100.0); Mean Platelet Volume 7.9; Monocytes # (A) 0.5 k/uL (0-1.0); Monocytes % (A) 7 %; Neutrophils # (A) 3.5 k/uL (1.3-7.7); Neutrophils % (A) 50 %; Platelet Count 355 k/uL (150-450); RBC 4.67 m/uL (3.80-5.40); RDW 13.4 % (11.5-15.5)
[2022-11-09 17:48] LABS: Albumin 4.6 g/dL (3.5-5.0); Calcium 8.9 mg/dL (8.4-10.2); Magnesium 1.8 mg/dL (1.6-2.3); Potassium 4.9 mmol/L (3.5-5.1); Total Bilirubin 0.4 mg/dL (0.2-1.3); Total Protein 7.2 g/dL (6.3-8.2)
[2022-11-09 17:54] LABS: INR 0.9 (<1.2); Partial Thromboplastin Time 24.1 sec (22.0-30.0); Prothrombin Time 9.8 sec (9.0-12.0)
--- NOTE | 2022-11-09 17:58 | XR ---
EXAMINATION TYPE: XR chest 2V DATE OF EXAM: 11/09/2022 COMPARISON: 09/28/2022 HISTORY: Weakness TECHNIQUE: 2 views FINDINGS: There is both a poor inspiration. There is coarse interstitial density in the lower lung fi elds. No heart failure. There are chest leads. IMPRESSION: Poor inspiration and mild pulmonary interstitial pneumonia which is new compared to the o ld exam. Minimal heart failure is possible.
--- NOTE | 2022-11-09 18:04 | CT ---
EXAMINATION TYPE: CT brain wo con DATE OF EXAM: 11/09/2022 COMPARISON: 10/16/2022 HISTORY: AMS CT DLP: 1055.4 mGycm Automated exposure control for dose reduction was used. Images of the brain obtained with no contrast. There is cerebral cortical atrophy. There is no mass effect or midline shift. No sign of intracranial hemorrhage. Calvarium is intact. The skull base is intact. IMPRESSION: Cerebral atrophy. No acute intracranial abnormality. No change.
[2022-11-09] MEDS ORDERED: GABAPENTIN 100 MG CAP PO PRN (19:26)
[2022-11-09] MEDS ORDERED: CLOPIDOGREL 75 MG TAB PO SCH (19:30)
[2022-11-09] MEDS: NITROGLYCERIN OINT 1 INCH/GM PACKET TOPICAL SCH (19:35)
[2022-11-09] MEDS: NITROGLYCERIN SL TABS 0.4 MG TAB SUBLINGUAL PRN (20:49)
[2022-11-09] MEDS: METOPROLOL TARTRATE 50 MG TAB PO SCH (21:13)
[2022-11-09] MEDS: metFORMIN 500 MG TAB PO SCH (21:13)
[2022-11-09] MEDS: CHOLECALCIFEROL 25 MCG (1000 IU) TABLET PO SCH (21:13)
[2022-11-09] MEDS: FAMOTIDINE 20 MG TAB PO SCH (21:14)
[2022-11-09] MEDS: BACLOFEN 10 MG TAB PO SCH (21:15)
[2022-11-10] MEDS: NITROGLYCERIN OINT 1 INCH/GM PACKET TOPICAL SCH ×2 (01:04→05:51)
[2022-11-10] MEDS: NITROGLYCERIN SL TABS 0.4 MG TAB SUBLINGUAL PRN (01:10)
[2022-11-10] MEDS: LEVOTHYROXINE 88 MCG TAB PO SCH (05:51)
--- NOTE | 2022-11-10 07:02 | P.HPIM ---
History of Present Illness This is a pleasant 87 years old female with multiple medical problems as below. Information were obtained from the patient and son at bedside. Patient's initial presents because she did not feel well yesterday, she had chest pain in the middle associated with mild tenderness nonradiating, it was significant on the presentation but now patient says it's okay. When she tried to walk to the bathroom here in the hospital she felt chest pain again. She is complaining also with little shortness of breath but she is not tachypneic at rest. No coughing. Patient also passed out while she was here in the emergency room waiting area. Also patient is been complaining of from constipation. No abdominal pain or vomiting. No urinary complaints. No headache or dizziness. No smoking. Piano Tuner is Dr. Silva. On the presentation blood pressure was elevated at 189/72, currently blood pressure 156/64, slightly bradycardic this morning the 50s. afebrile CBC is unremarkable, INR is normal. D-dimer 0.65 which is corrected for her age then would be within the reference range. BMP is unremarkable. Creatinine 0.7, GFR 73. Glucose 171. Liver enzymes not elevated. Troponin 0.012 multiple samples. ProBNP 105 Lipase normal. Chest x-ray, poor inspiration and my pulmonary interstitial pneumonia CT of the brain: No acute process EKG normal sinus rhythm at [address]-T changes In the emergency room patient was started on aspirin Review of Systems Review of systems CONSTITUTIONAL: No fever, no malaise, no fatigue. HEENT: No recent visual problems or hearing problems. Denied any sore throat. CARDIOVASCULAR: No orthopnea, PND, no palpitations, no syncope. PULMONARY: No shortness of breath, no cough, no hemoptysis. GASTROINTESTINAL: No diarrhea, no nausea, no vomiting, no abdominal pain. Normoactive bowel sounds. NEUROLOGICAL: No headaches, no weakness, no numbness. HEMATOLOGICAL: Denies any bleeding or petechiae. GENITOURINARY: Denies any burning micturition, frequency, or urgency. MUSCULOSKELETAL/RHEUMATOLOGICAL: Denies any joint pain, swelling, or any muscle pain. ENDOCRINE: Denies any polyuria or polydipsia. 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 kidney functions being checked at home per nephrology. Last Myocardial Infarction Date:: 09/2018 History of Any Multi-Drug Resistant Organisms: None Reported Past Surgical History: Back Surgery, Breast Surgery, Heart Catheterization With Stent, Hysterectomy, Orthopedic Surgery, Tubal Ligation Additional Past Surgical History / Comment(s): PCI with a total of 7 stents, low back surgery, L breast benign bx, R rotator cuff repair, R eye cataract removed, multiple bilateral laser eye surgeries, bilateral eye stents-R one fell out, thyroidectomy d/t nodules, temporal artery bx, cervical and lumbar injections. Past Anesthesia/Blood Transfusion Reactions: Previous Problems w/ Anesthesia Additional Past Anesthesia/Blood Transfusion Reaction / Comment(s): hard to wake up Date of Last Stent Placement:: 10/19/18 Past Psychological History: Anxiety Additional Psychological History / Comment(s): Pt has her son, Geoffrey residing with her. She is visually impaired, reads with a lighted magnifying screen. She signs her name occasionally. She is able to manage her own medications. Her sons take her to appts. She ambulates with a walker. Smoking Status: Never smoker Past Alcohol Use History: None Reported Past Drug Use History: None Reported - Past Family History Mother Family Medical History: Myocardial Infarction ([place]) Additional Family Medical History / Comment(s): MOTHER OF A AK AT THE AGE OF 57YRS. Brother(s) Family Medical History: Myocardial Infarction ([place]) Additional Family Medical History / Comment(s): BROTHER OF A AK AT THE AGE OF 60YRS. Father Family Medical History: No Reported History Additional Family Medical History / Comment(s): FATHER LIVED TO BE 90YRS OLD. Medications and Allergies Home Medications Medication Instructions Recorded Confirmed Type Vits A,C,E/Lutein/Minerals 1 tab PO BID 05/03/16 11/09/22 History [Ocuvite with Lutein Tablet] Levothyroxine Sodium [Synthroid] 88 mcg PO DAILY 05/31/17 11/09/22 History ALPRAZolam [Xanax] 0.25 mg PO DAILY PRN #30 06/05/17 11/09/22 Rx Glimepiride [Amaryl] 1 mg PO DAILY 04/28/18 11/09/22 History metFORMIN HCL [Glucophage] 500 mg PO BID 04/28/18 11/09/22 History Gabapentin [Neurontin] 200 mg PO BID PRN 05/25/20 11/09/22 History Atorvastatin [Lipitor] 40 mg PO DAILY 03/26/21 11/09/22 History Aspirin EC [Ecotrin Low Dose] 81 mg PO DIRECTED 07/19/21 11/09/22 History Famotidine 20 mg PO BID 07/19/21 11/09/22 History Isosorbide Mononitrate ER [Imdur] 30 mg PO DAILY 07/19/21 11/09/22 History Metoprolol Tartrate [Lopressor] 50 mg PO BID 07/19/21 11/09/22 History Cholecalciferol [Vitamin D3 (25 25 mcg PO BID 08/19/22 11/09/22 History Mcg = 1000 Iu)] Fluticasone Nasal [place] [Flonase 2 spray EA NOSTRIL DAILY PRN 08/19/22 11/09/22 History Nasal [place]] Sennosides [Senokot] 8.6 mg PO BID PRN #20 tab 08/24/22 11/09/22 Rx Meloxicam [Mobic] 7.5 mg PO DAILY #20 tab 10/17/22 11/09/22 Rx Baclofen [Lioresal] 5 mg PO TID #30 tablet 10/18/22 11/09/22 Rx amLODIPine [Norvasc] 5 mg PO DAILY #30 tab 10/18/22 11/09/22 Rx Clopidogrel [Plavix] 75 mg PO DIRECTED 11/09/22 11/09/22 History Allergies Allergy/AdvReac Type Severity Reaction Status Date / Time aspartame Allergy Severe Swelling Verified 11/09/22 17:24 PAPER TAPE Allergy Unknown Rash/Hives Uncoded 11/09/22 17:24 Physical Exam Vitals: Vital Signs Temp Pulse Resp BP Pulse Ox 11/10/22 06:40 56 L 16 156/64 99 11/10/22 05:00 56 L 15 145/90 98 11/10/22 03:00 55 L 16 134/55 99 11/10/22 02:13 53 L 16 134/55 98 11/10/22 01:07 56 L 16 168/89 99 11/09/22 23:55 63 18 168/89 99 11/09/22 22:51 77 15 165/78 99 11/09/22 21:16 68 18 182/78 99 11/09/22 20:47 67 18 188/82 100 11/09/22 19:29 97.9 F 73 15 181/79 11/09/22 18:28 71 18 189/79 99 11/09/22 17:36 84 147/83 95 11/09/22 17:08 85 18 163/79 100 11/09/22 17:01 73 18 202/84 100 11/09/22 16:38 97.5 F L 75 18 205/87 100 Intake and Output 11/09/22 11/09/22 11/10/22 14:59 22:59 06:59 Other: Weight 71.214 kg GENERAL: The patient is alert and oriented x3, not in any acute distress. Well developed, well nourished. HEENT: Pupils are round and equally reacting to light. EOMI. No scleral icterus. No conjunctival pallor. Normocephalic, atraumatic. No pharyngeal erythema. No thyromegaly. CARDIOVASCULAR: S1 and S2 present. No murmurs, rubs, or gallops. PULMONARY: Chest is clear to auscultation, no wheezing or crackles. ABDOMEN: Soft, nontender, nondistended, normoactive bowel sounds. No palpable organomegaly. MUSCULOSKELETAL: No joint swelling or deformity. EXTREMITIES: No cyanosis, clubbing, or pedal edema. NEUROLOGICAL: Gross neurological examination did not reveal any focal deficits. SKIN: No rashes. no petechiae. Results CBC & Chem 7: 11/09/22 16:56 11/09/22 16:56 Labs: Abnormal Lab Results - Last 24 Hours (Table) 11/09/22 11/09/22 11/09/22 Range/Units 16:39 16:56 16:56 D-Dimer 0.65 H (<0.60) mg/L FEU Sodium 133 L (137-145) mmol/L Chloride 97 L (98-107) mmol/L BUN 18 H (7-17) mg/dL Glucose 153 H (74-99) mg/dL POC Glucose (mg/dL) 171 H (70-110) mg/dL Alkaline Phosphatase 174 H (38-126) U/L Assessment and Plan Assessment: Chest pain, feels better now. 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 Continue same treatment. Continue with symptomatic treatment. Resume home medication. Monitor labs and vitals. DVT and GI prophylaxis. Further recommendations as per clinical course of the patient DVT prophylaxis: Subcutaneous heparin GI Prophylaxis: Pepcid PT/OT: Pending Prognosis is guarded
[2022-11-10] MEDS: metFORMIN 500 MG TAB PO SCH ×2 (07:41→17:10)
[2022-11-10] MEDS: ASPIRIN 325 MG TAB PO SCH (09:10)
[2022-11-10] MEDS: FAMOTIDINE 20 MG TAB PO SCH (09:10)
[2022-11-10] MEDS: ATORVASTATIN 40 MG TAB PO SCH (09:10)
[2022-11-10] MEDS: CHOLECALCIFEROL 25 MCG (1000 IU) TABLET PO SCH ×2 (09:10→20:20)
[2022-11-10] MEDS: METOPROLOL TARTRATE 50 MG TAB PO SCH ×2 (09:10→20:20)
[2022-11-10] MEDS: BACLOFEN 10 MG TAB PO SCH ×2 (09:10→09:27)
[2022-11-10] MEDS: ISOSORBIDE MONONITRATE ER 30 MG TAB.ER.24H PO SCH (09:10)
[2022-11-10] MEDS: amLODIPine 5 MG TAB PO SCH (09:10)
[2022-11-10 09:22] LABS: Basophils # (A) 0.1 k/uL (0-0.2); Basophils % (A) 1 %; Eosinophils # (A) 0.2 k/uL (0-0.7); Eosinophils % (A) 3 %; HCT 39.4 % (34.0-46.0); Lymphocytes # (A) 1.8 k/uL (1.0-4.8); Lymphocytes % (A) 31 %; MCH 29.9 pg (25.0-35.0); MCV 90.7 fL (80.0-100.0); Mean Platelet Volume 7.8; Monocytes # (A) 0.4 k/uL (0-1.0); Monocytes % (A) 7 %; Neutrophils # (A) 3.2 k/uL (1.3-7.7); Neutrophils % (A) 55 %; Platelet Count 304 k/uL (150-450); RBC 4.34 m/uL (3.80-5.40); RDW 13.5 % (11.5-15.5); WBC 5.9 k/uL (3.8-10.6)
[2022-11-10 09:32] LABS: African American GFR (CKD) 78 (>60 ml/min/1.73 sqM); Anion Gap 10 mmol/L; Blood Urea Nitrogen 15 mg/dL (7-17); Calcium 8.8 mg/dL (8.4-10.2); Carbon Dioxide 27 mmol/L (22-30); Chloride 98 mmol/L (98-107); Glucose 186 mg/dL (74-99); Magnesium 1.8 mg/dL (1.6-2.3); Non-African American GFR(CKD) 68 (>60 ml/min/1.73 sqM); Sodium 135 mmol/L (137-145)
[2022-11-10] MEDS: GLIMEPIRIDE 1 MG TAB PO SCH (10:42)
--- NOTE | 2022-11-10 11:13 | P.CRDCN ---
History of Present Illness History of present illness: HISTORY OF PRESENT ILLNESS: This is a 87-year-old female with a past medical history significant for coronary artery disease with previous stenting, hypertension, hyperlipidemia, diabetes mellitus, carotid stenosis, and CVA. Patient follows in the office with Dr. Silva. Patient has been having back pain and therefore was recommended initially consideration of steroid injections and therefore had initially stopped aspirin and Plavix. The plan was then changed to just oral steroids and appeared to be some confusion as she stopped all of her BP meds. She was planning on starting the steroids today. Yesterday she had acute onset of chest pain which felt similar to her heart pain. She does have some reproducible pain in her breast and does appear to have breast lump which apparently had been biopsied in the distant past. In addition of that however she has other chest pain which lasted for a few hours. Troponin is noted to be normal 4. Shortly after coming to emergency department with her chest pain which had started 10 minutes prior she had a syncopal episode. She then was moved to a trauma bay and by the time blood pressure was checked was noted to be hypertensive. Of note she had stopped metoprolol, Imdur and amlodipine 2-3 days prior. REVIEW OF SYSTEMS: At the time of my exam: CONSTITUTIONAL: Denies fever or chills. HEENT: Denies blurred vision, vision changes, or eye pain. Denies hemoptysis CARDIOVASCULAR: +chest pain. Denies orthopnea. Denies PND. Denies palpitations RESPIRATORY: Denies shortness of breath. GASTROINTESTINAL: Denies abdominal pain. Denies nausea or vomiting. HEMATOLOGIC: Denies bleeding disorders. GENITOURINARY: Denies any blood in urine. SKIN: Denies pruitis. Denies rash. PHYSICAL EXAM: VITAL SIGNS: Reviewed. GENERAL: Well-developed in no acute distress. HEENT: Head is normocephalic. Pupils are equal, round. Sclerae anicteric. Mucous membranes of the mouth are moist. Neck supple. No JVD or thyromegaly LUNGS: Respirations even and unlabored. Lungs essentially clear to auscultation bilaterally. HEART: Regular rate and rhythm. S1 and S2 heard. ABDOMEN: Soft. Right upper quadrant tenderness. EXTREMITIES: Normal range of motion. No clubbing or cyanosis. Peripheral pulses intact. No lower extremity edema NEUROLOGIC: Awake and alert. Oriented x 3. ASSESSMENT: Chest pain for 4-5 hours with syncopal episode. May be anginal with patient stopping her blood pressure medications/ antianginals 2 days prior Syncope, vasovagal vs rule out arrythmia Left breast lump with some reproducible pain over site Coronary artery disease with previous stenting Hypertension Hyperlipidemia Diabetes mellitus Carotid stenosis History of CVA PLAN: Check limited 2-D echo to evaluate source of syncope. Prior echo did not show any significant valvular disease. Her chest pain likely is related to stopping all of her blood pressure medications/antianginal medications 2 days prior. Appears to be some miscommunication as she stopped her medications to start oral steroids. Troponins normal 4 and do not suspect acute coronary syndrome. Restart blood pressure medications and monitor response. Given syncopal episode which may have been vagal related secondary to pain however rule out any sort of arrhythmia and recommend two-week monitor going home. Monitor for another 24 hours given recent episodes and if not having any further chest pain likely discharge home tomorrow. 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 kidney functions being checked at home per nephrology. Last Myocardial Infarction Date:: 09/2018 History of Any Multi-Drug Resistant Organisms: None Reported Past Surgical History: Back Surgery, Breast Surgery, Heart Catheterization With Stent, Hysterectomy, Orthopedic Surgery, Tubal Ligation Additional Past Surgical History / Comment(s): PCI with a total of 7 stents, low back surgery, L breast benign bx, R rotator cuff repair, R eye cataract removed, multiple bilateral laser eye surgeries, bilateral eye stents-R one fell out, thyroidectomy d/t nodules, temporal artery bx, cervical and lumbar injections. Past Anesthesia/Blood Transfusion Reactions: Previous Problems w/ Anesthesia Additional Past Anesthesia/Blood Transfusion Reaction / Comment(s): hard to wake up Date of Last Stent Placement:: 10/19/18 Past Psychological History: Anxiety Additional Psychological History / Comment(s): Pt has her son, Geoffrey residing with her. She is visually impaired, reads with a lighted magnifying screen. She signs her name occasionally. She is able to manage her own medications. Her sons take her to appts. She ambulates with a walker. Smoking Status: Never smoker Past Alcohol Use History: None Reported Past Drug Use History: None Reported - Past Family History Mother Family Medical History: Myocardial Infarction (PA) Additional Family Medical History / Comment(s): MOTHER OF A PA AT THE AGE OF 57YRS. Brother(s) Family Medical History: Myocardial Infarction (PA) Additional Family Medical History / Comment(s): BROTHER OF A PA AT THE AGE OF 60YRS. Father Family Medical History: No Reported History Additional Family Medical History / Comment(s): FATHER LIVED TO BE 90YRS OLD. Medications and Allergies Home Medications Medication Instructions Recorded Confirmed Type Vits A,C,E/Lutein/Minerals 1 tab PO BID 05/03/16 11/09/22 History [Ocuvite with Lutein Tablet] Levothyroxine Sodium [Synthroid] 88 mcg PO DAILY 05/31/17 11/09/22 History ALPRAZolam [Xanax] 0.25 mg PO DAILY PRN #30 06/05/17 11/09/22 Rx Glimepiride [Amaryl] 1 mg PO DAILY 04/28/18 11/09/22 History metFORMIN HCL [Glucophage] 500 mg PO BID 04/28/18 11/09/22 History Gabapentin [Neurontin] 200 mg PO BID PRN 05/25/20 11/09/22 History Atorvastatin [Lipitor] 40 mg PO DAILY 03/26/21 11/09/22 History Aspirin EC [Ecotrin Low Dose] 81 mg PO DIRECTED 07/19/21 11/09/22 History Famotidine 20 mg PO BID 07/19/21 11/09/22 History Isosorbide Mononitrate ER [Imdur] 30 mg PO DAILY 07/19/21 11/09/22 History Metoprolol Tartrate [Lopressor] 50 mg PO BID 07/19/21 11/09/22 History Cholecalciferol [Vitamin D3 (25 25 mcg PO BID 08/19/22 11/09/22 History Mcg = 1000 Iu)] Fluticasone Nasal Ophelia [Flonase 2 spray EA NOSTRIL DAILY PRN 08/19/22 11/09/22 History Nasal Ophelia] Sennosides [Senokot] 8.6 mg PO BID PRN #20 tab 08/24/22 11/09/22 Rx Meloxicam [Mobic] 7.5 mg PO DAILY #20 tab 10/17/22 11/09/22 Rx Baclofen [Lioresal] 5 mg PO TID #30 tablet 10/18/22 11/09/22 Rx amLODIPine [Norvasc] 5 mg PO DAILY #30 tab 10/18/22 11/09/22 Rx Clopidogrel [Plavix] 75 mg PO DIRECTED 11/09/22 11/09/22 History Allergies Allergy/AdvReac Type Severity Reaction Status Date / Time aspartame Allergy Severe Swelling Verified 11/09/22 17:24 PAPER TAPE Allergy Unknown Rash/Hives Uncoded 11/09/22 17:24 Physical Exam Vitals: Vital Signs Temp Pulse Pulse Resp BP BP Pulse Ox 11/10/22 09:45 64 18 170/72 99 11/10/22 06:40 56 L 16 156/64 99 11/10/22 05:00 56 L 15 145/90 98 11/10/22 03:00 55 L 16 134/55 99 11/10/22 02:13 53 L 16 134/55 98 11/10/22 01:07 56 L 16 168/89 99 11/09/22 23:55 63 18 168/89 99 11/09/22 22:51 77 15 165/78 99 11/09/22 21:16 68 18 182/78 99 11/09/22 20:47 67 18 188/82 100 11/09/22 19:29 97.9 F 73 15 181/79 11/09/22 18:28 71 18 189/79 99 11/09/22 17:36 84 147/83 95 11/09/22 17:08 85 18 163/79 100 11/09/22 17:01 73 18 202/84 100 11/09/22 16:38 97.5 F L 75 18 205/87 100 Intake and Output 11/09/22 11/10/22 11/10/22 22:59 06:59 14:59 Other: Voiding Method Bedside Commode Weight 71.214 kg Results 11/10/22 08:50 03/16/23 08:50 Cardiac Enzymes 11/09/22 11/09/22 11/09/22 Range/Units 16:56 16:56 19:42 AST 21 (14-36) U/L Troponin I <0.012 <0.012 (0.000-0.034) ng/mL 11/09/22 11/10/22 Range/Units 22:16 08:50 AST (14-36) U/L Troponin I <0.012 <0.012 (0.000-0.034) ng/mL Coagulation 11/09/22 Range/Units 16:56 PT 9.8 (9.0-12.0) sec APTT 24.1 (22.0-30.0) sec CBC 11/09/22 11/10/22 Range/Units 16:56 08:50 WBC 7.0 5.9 (3.8-10.6) k/uL RBC 4.67 4.34 (3.80-5.40) m/uL Hgb 14.0 13.0 (11.4-16.0) gm/dL Hct 41.5 39.4 (34.0-46.0) % Plt Count 355 304 (150-450) k/uL Comprehensive Metabolic Panel 11/09/22 11/10/22 Range/Units 16:56 08:50 Sodium 133 L 135 L (137-145) mmol/L Potassium 4.9 5.0 (3.5-5.1) mmol/L Chloride 97 L 98 (98-107) mmol/L Carbon Dioxide 23 27 (22-30) mmol/L BUN 18 H 15 (7-17) mg/dL Creatinine 0.74 0.78 (0.52-1.04) mg/dL Glucose 153 H 186 H (74-99) mg/dL Calcium 8.9 8.8 (8.4-10.2) mg/dL AST 21 (14-36) U/L ALT 25 (4-34) U/L Alkaline Phosphatase 174 H (38-126) U/L Total Protein 7.2 (6.3-8.2) g/dL Albumin 4.6 (3.5-5.0) g/dL Current Medications Generic Name Dose Route Start Last Admin Trade Name Freq PRN Reason Stop Dose Admin Alprazolam 0.25 mg 03/15/23 19:26 Alprazolam 0.25 Mg Tab PO DAILY PRN Anxiety Amlodipine Besylate 5 mg 11/10/22 09:00 11/10/22 09:10 Amlodipine 5 Mg Tab PO 5 mg DAILY ANDREW Administration Aspirin 325 mg 11/10/22 09:00 11/10/22 09:10 Aspirin 325 Mg Tab PO 325 mg DAILY ANDREW Administration Atorvastatin Calcium 40 mg 11/10/22 09:00 11/10/22 09:10 Atorvastatin 40 Mg Tab PO 40 mg DAILY ANDREW Administration Cholecalciferol 25 mcg 11/09/22 21:00 11/10/22 09:10 Cholecalciferol 25 Mcg (1000 Iu) Tablet PO 25 mcg BID ANDREW Administration Famotidine 20 mg 11/09/22 21:00 11/10/22 09:10 Famotidine 20 Mg Tab PO 20 mg DAILY ANDREW Administration Gabapentin 200 mg 11/09/22 19:26 Gabapentin 100 Mg Cap PO BID PRN NERVE PAIN Glimepiride 1 mg 11/10/22 09:00 11/10/22 10:42 Glimepiride 1 Mg Tab PO 1 mg DAILY [facility] Administration Isosorbide Mononitrate 30 mg 11/10/22 09:00 11/10/22 09:10 Isosorbide Mononitrate Er 30 Mg Tab.Er.24h PO 30 mg DAILY [facility] Administration Levothyroxine Sodium 88 mcg 11/10/22 06:30 11/10/22 05:51 Levothyroxine 88 Mcg Tab PO 88 mcg DAILY@0630 [facility] Administration Metformin HCl 500 mg 11/09/22 21:00 11/10/22 07:41 Metformin 500 Mg Tab PO 500 mg BID-W/MEALS [facility] Administration Metoprolol Tartrate 50 mg 11/09/22 21:00 11/10/22 09:10 Metoprolol Tartrate 50 Mg Tab PO 50 mg BID [facility] Administration Nitroglycerin 0.4 mg 11/09/22 19:24 11/10/22 01:10 Nitroglycerin Sl Tabs 0.4 Mg Tab SUBLINGUAL 0.4 mg Q5M PRN Administration Chest Pain Intake and Output 11/09/22 11/10/22 11/10/22 22:59 06:59 14:59 Other: Voiding Method Bedside Commode Weight 71.214 kg 11/10/22 08:50 11/10/22 08:50
--- NOTE | 2022-11-10 11:33 | CA ---
Transthoracic Echo Report Name: Praveena Brewster Age: 87 Gender: F : 1935 Exam Date: 11/10/2022 06:57 Exam Location: [place] [facility] Ht (in): 58 Wt (lb): 157 Ordering Physician: Randall Lynn DO Attending/Referring Phys: Stain Applicator Berenice Sampson RDCS Procedure CPT: Indications: Chest pain, syncopal Cardiac Hx: Technical Quality: Good Contrast 1: Total Dose (mL): Contrast 2: Total Dose (mL): MEASUREMENTS (Male / Female) Normal Values 2D ECHO LV Diastolic Diameter PLAX 3.8 cm 4.2 - 5.9 / 3.9 - 5.3 cm LV Systolic Diameter PLAX 2.6 cm IVS Diastolic Thickness 1.2 cm 0.6 - 1.0 / 0.6 - 0.9 cm LVPW Diastolic Thickness 1.3 cm 0.6 - 1.0 / 0.6 - 0.9 cm LV Relative Wall Thickness 0.7 RV Internal Dim ED PLAX 2.9 cm LA Systolic Diameter LX 3.4 cm 3.0 - 4.0 / 2.7 - 3.8 cm LV Diastolic Volume MOD 4C 38.7 cm??? LV Systolic Volume MOD 4C 11.4 cm??? LV Ejection Fraction MOD 4C 70.6 % LV Diastolic Length 4C 6.9 cm LV Systolic Length 4C 5.5 cm LV Diastolic Volume MOD 2C 61.5 cm??? LV Systolic Volume MOD 2C 20.4 cm??? LV Ejection Fraction MOD 2C 66.8 % LV Diastolic Length 2C 7.3 cm LV Systolic Length 2C 6.2 cm LA Volume 32.6 cm??? 18 - 58 / 22 - 52 cm??? M-MODE Aortic Root Diameter MM 2.9 cm MV E Point Septal Separation 0.2 cm AV Cusp Separation MM 1.6 cm DOPPLER AV Peak Velocity 118.0 cm/s AV Peak Gradient 5.6 mmHg MV Area PHT 2.2 cm??? Mitral E Point Velocity 75.0 cm/s Mitral A Point Velocity 109.0 cm/s Mitral E to A Ratio 0.7 MV Deceleration Time 350.7 ms MV E' Velocity 3.4 cm/s Mitral E to MV E' Ratio 21.8 TR Peak Velocity 254.6 cm/s TR Peak Gradient 25.9 mmHg Right Ventricular Systolic Press 30.3 mmHg FINDINGS Left Ventricle Left ventricular ejection fraction is estimated at 55-60 %. Left ventricular cavity size normal. Mild concentric left ventricular hypertrophy. No obvious regional wall motion abnormalities. Right Ventricle Normal right ventricular size. Right ventricular systolic pressure within normal limits. Right Atrium Normal right atrial size. Left Atrium Normal left atrial size. Mitral Valve Mitral valve thickened. Mild mitral annular calcification. Mild to moderate MR Aortic Valve Trileaflet aortic valve. No aortic valve stenosis or regurgitation. Focal thickening of the aortic valve cusps. Tricuspid Valve Structurally normal tricuspid valve. Mild tricuspid regurgitation. Pulmonic Valve Structurally normal pulmonic valve. Trace pulmonic regurgitation. Pericardium Normal pericardium. No pericardial effusion. Aorta Normal size aortic root and proximal ascending aorta. CONCLUSIONS Normal LV and RV systolic function The LV systolic function appeared to be in the range of 55-60% Thickened mitral valve leaflets with mild to moderate mitral regurgitation Aortic sclerosis was no stenosis or regurgitation No evidence of pericardial effusion Previewed by: Dr. Antonio Treadwell MD (Electronically Signed) Final Date: 10 November 2022 11:33
[2022-11-10 15:44] LABS: Chol/HDL Ratio 2.84 Ratio
[2022-11-10 16:53] LABS: Glucose,Whole Blood 204 mg/dL (70-110)
[2022-11-10 20:21] LABS: Glucose,Whole Blood 135 mg/dL (70-110)
[2022-11-10] MEDS: ALPRAZolam 0.25 MG TAB PO PRN (22:28)
[2022-11-11] MEDS: metFORMIN 500 MG TAB PO SCH ×2 (05:39→17:01)
[2022-11-11] MEDS: LEVOTHYROXINE 88 MCG TAB PO SCH (05:39)
[2022-11-11 05:54] LABS: Glucose,Whole Blood 156 mg/dL (70-110)
[2022-11-11] MEDS: ATORVASTATIN 40 MG TAB PO SCH (09:38)
[2022-11-11] MEDS: ISOSORBIDE MONONITRATE ER 30 MG TAB.ER.24H PO SCH (09:38)
[2022-11-11] MEDS: GLIMEPIRIDE 1 MG TAB PO SCH (09:38)
[2022-11-11] MEDS: FAMOTIDINE 20 MG TAB PO SCH (09:38)
[2022-11-11] MEDS: CHOLECALCIFEROL 25 MCG (1000 IU) TABLET PO SCH ×2 (09:38→19:47)
[2022-11-11] MEDS: METOPROLOL TARTRATE 50 MG TAB PO SCH ×2 (09:38→19:47)
[2022-11-11] MEDS: amLODIPine 5 MG TAB PO SCH (09:38)
[2022-11-11] MEDS: ASPIRIN 325 MG TAB PO SCH (09:38)
[2022-11-11 11:52] LABS: Glucose,Whole Blood 119 mg/dL (70-110)
[2022-11-11 16:16] LABS: Glucose,Whole Blood 173 mg/dL (70-110)
[2022-11-11] MEDS ORDERED: amLODIPine 5 MG TAB PO STA (17:14)
[2022-11-11 20:04] LABS: Glucose,Whole Blood 126 mg/dL (70-110)
--- NOTE | 2022-11-11 22:12 | P.PN ---
Subjective HISTORY OF PRESENT ILLNESS: This is a 87-year-old female with a past medical history significant for coronary artery disease with previous stenting, hypertension, hyperlipidemia, diabetes mellitus, carotid stenosis, and CVA. Patient follows in the office with Dr. Silva. Patient has been having back pain and therefore was recommended initially consideration of steroid injections and therefore had initially stopped aspirin and Plavix. The plan was then changed to just oral steroids and appeared to be some confusion as she stopped all of her BP meds. She was planning on starting the steroids today. Yesterday she had acute onset of chest pain which felt similar to her heart pain. She does have some reproducible pain in her breast and does appear to have breast lump which apparently had been biopsied in the distant past. In addition of that however she has other chest pain which lasted for a few hours. Troponin is noted to be normal 4. Shortly after coming to emergency department with her chest pain which had started 10 minutes prior she had a syncopal episode. She then was moved to a trauma bay and by the time blood pressure was checked was noted to be hypertensive. Of note she had stopped metoprolol, Imdur and amlodipine 2-3 days prior. 11/11 Patient seen and examined. Echocardiogram reviewed with normal left ventricular ejection fraction 55-60% with [id number] mitral regurgitation. No significant arrhythmias noted on telemetry. Blood pressure labile 110s to 170s. PHYSICAL EXAM: VITAL SIGNS: Reviewed. GENERAL: Well-developed in no acute distress. HEENT: Head is normocephalic. Pupils are equal, round. Sclerae anicteric. Mucous membranes of the mouth are moist. Neck supple. No JVD or thyromegaly LUNGS: Respirations even and unlabored. Lungs essentially clear to auscultation bilaterally. HEART: Regular rate and rhythm. S1 and S2 heard. ABDOMEN: Soft. Right upper quadrant tenderness. EXTREMITIES: Normal range of motion. No clubbing or cyanosis. Peripheral pulses intact. No lower extremity edema NEUROLOGIC: Awake and alert. Oriented x 3. ASSESSMENT: Chest pain for 4-5 hours with syncopal episode. May be anginal with patient stopping her blood pressure medications/ antianginals 2 days prior Syncope, vasovagal vs rule out arrythmia Left breast lump with some reproducible pain over site Coronary artery disease with previous stenting Hypertension Hyperlipidemia Diabetes mellitus Carotid stenosis History of CVA PLAN: Echo showing normal left ventricular ejection fraction without significant valvular disease. Majority of chest pain likely related to stopping blood pressure medications/and change in medications 2 days prior. Patient appears stable for discharge home from a cardiology standpoint and outpatient monitor may be placed. Objective - Vital Signs Vital signs: Vital Signs Temp 98.2 F 11/11/22 19:47 Pulse 57 L 11/11/22 19:47 Resp 17 11/11/22 19:47 BP 162/62 11/11/22 19:47 Pulse Ox 96 11/11/22 19:47 FiO2 Intake & Output 11/11/22 11/11/22 11/12/22 06:59 18:59 06:59 Intake Total 360 Balance 360 Intake: Oral 360 Other: Voiding Method Bedside Commode Bedside Commode Bedside Commode # Voids 2 2 2 - Labs CBC & Chem 7: 11/10/22 08:50 11/10/22 08:50 Labs: Abnormal Lab Results - Last 24 Hours (Table) 11/11/22 11/11/22 11/11/22 Range/Units 05:29 11:51 16:13 POC Glucose (mg/dL) 156 H 119 H 173 H (70-110) mg/dL 11/11/22 Range/Units 20:02 POC Glucose (mg/dL) 126 H (70-110) mg/dL
[2022-11-11] MEDS: ALPRAZolam 0.25 MG TAB PO PRN (22:25)
[2022-11-12] MEDS ORDERED: HALOPERIDOL LACTATE 5 MG/ML 1 ML VIAL IM PRN (02:17)
[2022-11-12 06:21] LABS: Glucose,Whole Blood 174 mg/dL (70-110)
[2022-11-12] MEDS: LEVOTHYROXINE 88 MCG TAB PO SCH (06:21)
[2022-11-12] MEDS: metFORMIN 500 MG TAB PO SCH (06:21)
[2022-11-12] MEDS ORDERED: amLODIPine 10 MG TAB PO SCH (09:00)
[2022-11-12 09:40] VITALS: BP 134/60; PULSE 69; RESP 16; TEMP 97.9
[2022-11-12] MEDS: CHOLECALCIFEROL 25 MCG (1000 IU) TABLET PO SCH (09:41)
[2022-11-12] MEDS: ISOSORBIDE MONONITRATE ER 30 MG TAB.ER.24H PO SCH (09:41)
[2022-11-12] MEDS: METOPROLOL TARTRATE 50 MG TAB PO SCH (09:41)
[2022-11-12] MEDS: ASPIRIN 325 MG TAB PO SCH (09:41)
[2022-11-12] MEDS: ATORVASTATIN 40 MG TAB PO SCH (09:41)
[2022-11-12] MEDS: FAMOTIDINE 20 MG TAB PO SCH (09:41)
[2022-11-12] MEDS: GLIMEPIRIDE 1 MG TAB PO SCH (09:41)
== END 2022-11-12 11:47 | disposition home or self-care (01) | DRG 303 ==
LOC: EC 16:31 → 3SCARD 19:26
PROVIDERS: ADMIT Internal Medicine; ATTEND Internal Medicine
DX: I25.110 Atherosclerotic heart disease of native coronary artery with unstable angina pectoris (principal); I25.2 Old myocardial infarction; H35.30 Unspecified macular degeneration; F41.9 Anxiety disorder, unspecified; H54.8 Legal blindness, as defined in USA; H91.90 Unspecified hearing loss, unspecified ear; E78.5 Hyperlipidemia, unspecified; I10 Essential (primary) hypertension; I65.29 Occlusion and stenosis of unspecified carotid artery; I34.0 Nonrheumatic mitral (valve) insufficiency; K59.09 Other constipation; M19.042 Primary osteoarthritis, left hand; M19.041 Primary osteoarthritis, right hand; K44.9 Diaphragmatic hernia without obstruction or gangrene; E89.0 Postprocedural hypothyroidism; Z82.49 Family history of ischemic heart disease and other diseases of the circulatory system; I69.398 Other sequelae of cerebral infarction; H53.8 Other visual disturbances; M19.90 Unspecified osteoarthritis, unspecified site; Z28.310 Unvaccinated for COVID-19; Z79.890 Hormone replacement therapy; Z79.84 Long term (current) use of oral hypoglycemic drugs; Z79.1 Long term (current) use of non-steroidal anti-inflammatories (NSAID); Z79.899 Other long term (current) drug therapy; Z95.5 Presence of coronary angioplasty implant and graft
CPT/HCPCS: 36415; 70450; 71046; 80048; 80053; 80061; 82150; 83036; 83690; 83735; 83880; 84145; 84484; 85025; 85379; 85610; 85730; 93005; 93270; 93306; 99285

== ENCOUNTER 2022-12-20 07:52 | Day surgery (SDC) | payer MEDICARE, BC ==
[2022-12-15 13:45] VITALS: BMI 30.4
[~2022-12-20 07:52] MED LIST changes: -LACTATED RINGERS 1,000 ML IV ONE; +LACTATED RINGERS 1,000 ML IV SCH; +LIDOCAINE 1% (10MG/ML) FOR IV START INTRADERMA PRN; -SODIUM CHLORIDE 0.9% 500 ML 500 ML IV SCH
[2022-12-20 08:20] VITALS: RESP 16; TEMP 97.3
[2022-12-20 08:32] LABS: Glucose,Whole Blood 237 mg/dL (70-110)
[2022-12-20] MEDS ORDERED: methylPREDNISolone ACETATE 40 MG/ML 1 ML VIAL ONE (08:46)
[2022-12-20] MEDS ORDERED: MIDAZOLAM 2 MG/2 ML VIAL ONE (08:46)
[2022-12-20] MEDS ORDERED: ROPIVACAINE 5 MG/ML 20 ML AMPULE ONE (08:46)
--- NOTE | 2022-12-20 08:58 | P.PCN ---
Date of Procedure: 12/20/22 Procedure(s) Performed: Preoperative diagnoses= 1- Greater occipital neuralgia Postoperative diagnoses= 1-greater occipital neuralgia Procedure= Bilateral Greater occipital nerve block Anesthesia= moderate sedation with Versed 2 mg . Sedation start time : 08 . Sedation end time : 853 . Estimated blood loss=minimal. Procedure indication= the patient had a history of severe chronic neck pain ,and headache, diagnosed with occipital neuralgia exam was positive for severe tenderness over the occipital nerve bilaterally, she will be a good candidate occipital nerve block, patient failed conservative management Procedure description= the patient was seen and identified in the preoperative holding area, risks and benefits and alternative of the procedure and possible complications discussed with the patient, and he agreed with the preceding, patient signed the consent, an IV was started, and vital signs were monitored and were stable throughout the procedure, patient was placed in the sitting position or table and the neck area was prepped and draped with a sterile fashion, vital signs were closely monitored during the procedure, 25-gauge needle advanced 1 inch lateral to the occipital protuberance on the right side, at the location of the right occipital nerve , then after negative aspiration for heme and CSF and there was no paresthesia during the injection, 6 ml of Robivacaine 0.5% and 20 mg of Depo-Medrol injected after negative aspiration, the needle removed, and the entire same procedure was repeated for the left Greater occipital nerve. Patient tolerated the procedure well without any complication, The patient returned to supine position after the back was cleaned and a Band- Aid applied, the patient transported to recovery room in stable condition and he was monitored for 30 minutes before he was discharged home and then patient was reexamined before going home and patient was discharged in stable condition and patient will follow up with the pain clinic in a few weeks.
[2022-12-20] MEDS ORDERED: IV FLUID CONTINUATION 800 ML IV ONE (09:00)
[2022-12-20 09:24] VITALS: BP 144/75; PULSE 78
== END 2022-12-20 09:48 ==
LOC: ORPAIN 07:52
PROVIDERS: ATTEND Anesthesiology
DX: M54.81 Occipital neuralgia (principal); G89.29 Other chronic pain; Z91.048 Other nonmedicinal substance allergy status
CPT/HCPCS: 64405; J2250; J1030; J2795

== ENCOUNTER 2023-01-09 10:18 | Emergency (ER) | payer MEDICARE, BC ==
[2023-01-09 10:37] VITALS: TEMP 97
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
[2023-01-09 10:50] LABS: Basophils % (A) 1 %; Eosinophils # (A) 0.3 k/uL (0-0.7); Eosinophils % (A) 4 %; HCT 38.9 % (34.0-46.0); HGB 12.9 gm/dL (11.4-16.0); Lymphocytes # (A) 2.1 k/uL (1.0-4.8); Lymphocytes % (A) 28 %; MCH 29.4 pg (25.0-35.0); MCHC 33.2 g/dL (31.0-37.0); MCV 88.6 fL (80.0-100.0); Mean Platelet Volume 7.9; Monocytes # (A) 0.5 k/uL (0-1.0); Monocytes % (A) 6 %; Neutrophils # (A) 4.4 k/uL (1.3-7.7); Neutrophils % (A) 59 %; Platelet Count 311 k/uL (150-450); RBC 4.39 m/uL (3.80-5.40); RDW 13.5 % (11.5-15.5); WBC 7.4 k/uL (3.8-10.6)
[2023-01-09 11:05] LABS: Albumin 4.3 g/dL (3.5-5.0); Calcium 8.5 mg/dL (8.4-10.2); Magnesium 1.7 mg/dL (1.6-2.3); Total Bilirubin 0.6 mg/dL (0.2-1.3)
--- NOTE | 2023-01-09 11:14 | CT ---
EXAMINATION TYPE: CT brain cspine wo con DATE OF EXAM: 01/09/2023 COMPARISON: CT head dated 11/09/2022 HISTORY: AMS, neck pain-recent neck injections CT DLP: 1391.1 mGycm Automated exposure control for dose reduction was used. TECHNIQUE: CT scan of the head and cervical spine are performed without contrast. FINDINGS: Head CT: The ventricles, basal cisterns and sulci over the convexities are mildly enlarged consistent with mil d atrophy appropriate for the patient's age. There is mild to moderate chronic ischemic white matter demyelination. There is no acute intra or extra-axial hemorrhage. There is no mass effect or shift of the midline st ructures. The posterior fossa is grossly normal. The intraorbital contents appear normal and symmetric. The calvarium is intact. CT cervical spine: Cervical spine is visualized in its entirety from C1 through upper thoracic levels and demonstrates s atisfactory alignment without evidence of acute fracture or dislocation. Prevertebral soft tissue ap pears within normal limits. The C1-C2 articulation is unremarkable. There is moderate disc space narrowing at the C3-4, C4-5, C5-6 and C6-7 levels consistent with modera te degenerative disc disease. There is moderate degenerative change of the uncovertebral joints along the right aspect of the cervi regina spine. There are no epidural soft tissue masses or fluid collections. Secondary to degenerative changes incl uding broad-based disc protrusion there is a moderate cervical stenosis at the C3-4 level and C5-6 le vels. IMPRESSION: 1. There is no acute fracture or dislocation evident in the cervical spine. Probable cervical stenosi s and significant degenerative changes as described above. 2. No acute intracranial hemorrhage, mass effect, or midline shift is seen.
[2023-01-09 11:36] LABS: Appearance,Urine Clear (Clear); Bilirubin,Urine Negative (Negative); Blood,Urine Negative (Negative); Color,Urine Colorless; Glucose,Urine (UA) 2+ (Negative); Ketones,Urine Negative (Negative); Leukocyte Esterase,Urine Negative (Negative); Nitrite,Urine Negative (Negative); PH, Urine 6.5 (5.0-8.0); Protein,Urine Negative (Negative); Specific Gravity,Urine 1.005 (1.001-1.035); Urobilinogen,Urine <2.0 mg/dL (<2.0)
--- NOTE | 2023-01-09 11:41 | XR ---
EXAMINATION TYPE: XR chest 1V portable DATE OF EXAM: 01/09/2023 COMPARISON: 11/09/2022 INDICATION: Acute mental status changes TECHNIQUE: Single frontal view of the chest is obtained. FINDINGS: The heart size is enlarged. The pulmonary vasculature is normal. The lungs are clear. IMPRESSION: 1. Cardiomegaly. 2. No acute pulmonary process.
[2023-01-09 12:08] VITALS: RESP 16
[2023-01-09 12:49] VITALS: BP 168/77; PULSE 53
== END 2023-01-09 12:48 | disposition home or self-care (01) ==
LOC: EC 10:18
DX: R41.82 Altered mental status, unspecified (principal); I10 Essential (primary) hypertension; E11.36 Type 2 diabetes mellitus with diabetic cataract; E78.5 Hyperlipidemia, unspecified; F41.9 Anxiety disorder, unspecified; I25.10 Atherosclerotic heart disease of native coronary artery without angina pectoris; I25.2 Old myocardial infarction; K21.9 Gastro-esophageal reflux disease without esophagitis; Z79.1 Long term (current) use of non-steroidal anti-inflammatories (NSAID); Z79.82 Long term (current) use of aspirin; Z79.84 Long term (current) use of oral hypoglycemic drugs; Z79.02 Long term (current) use of antithrombotics/antiplatelets; Z79.899 Other long term (current) drug therapy; Z88.8 Allergy status to other drugs, medicaments and biological substances
CPT/HCPCS: 36415; 70450; 71045; 72125; 80053; 81003; 83605; 83735; 85025; 93005; 99285

== ENCOUNTER → 2023-01-12 | Outpatient (CLI) | payer MEDICARE, BC ==
[2023-01-12 11:52] VITALS: BP 186/79; PULSE 66; RESP 18; TEMP 98.4
--- NOTE | 2023-01-12 12:39 | P.PAINPG ---
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 Pt states she experienced 50 % pain relief x 3 wks s/p procedure. Pain level is provoked at 7 /10 in intensity, constant, localized in the upper cervical spine, sore in character w shooting towards the head. Pain is provoked by hyperextension. Pain is alleviated with PT w massage x 6 wks in Jul 2022, chiropractic treatments x 1 in Nov 2022 which was minimally effective, heat, medications, repositioning and rest. Interventional pain procedures completed include BL DINAH Patient is currently on Neurontin from Dr Houston Patient denies any side effects of the medication(s), denies excessive drowsiness or sleepiness, denies suicidal ideation and reports that the current pain medication is helping to control the pain and improve activities of daily living. Patient denies any motor or sensory deficits. Patient denies any fever or night sweats, denies any change in the bowel movements or urination. Physical Examination: -Constitutional: Cooperative. Not in acute distress . - Neurologic: Cranial nerve II to XII intact. No focal neurological deficits. - Psychatric: Alert & oriented x 3. Matching mood & appropriate affect. Judgment and insight intact. - Musculoskeletal: Cervical spine: Muscle bulk/ tone/ strength in the bilateral upper extremities normal Vertebral body tenderness to palpation over Sp[place]ling test positive Distraction test positive Facet loading test positive TTP Thoracic spine Muscle bulk / tone/ strength in the bilateral paraspinal muscles normal Vertebral body tender to palpation over Facet loading test positive TTP Lumbar spine: Motor bulk/ tone/ strength lower extremities , thigh and legs : 5/5 Deep tendon reflexes : Normal Knee Jerk. Normal Ankle Jerk . Vertebral body tenderness to palpation over Lumbar Facet Loading Test positive Straight Leg Raise: positive at 30 degrees right side/ left side Gaenslen's Test positive Sacral spine : Severe tenderness over the Sacroiliac joint: right side / left side Range of motion: Flexion of the lumbar spine <60 degrees Range of motion: Extension of the lumbar spine <20 degrees Gaenslen's Test positive R / L Fili test: positive right side / left side Thigh Thrust Test positive R / L Sacral Thrust Test positive R/ L Assessment and plan: Chronic neck pain secondary to cervicogenic ALLEN and occipital neuralgia States she will manage residual pain at home. Pt may return to clinic on an as needed basis. All questions answered. I have spent less than 30 minutes on patient care today. Dr Olivas was available by phone for the evaluation of this patient. The time was used to review the medical records including relevant urine studies and Prescription history (MAPs), review of the available imaging, evaluation and examination of the patient, coordination of care with the medical staff and if applicable referring physicians, as well as creation of the medical record PQRS Narrative: Smoking Status Never smoker Hx Alcohol Use (MH) No Home Medications: Ambulatory Orders Vits A,C,E/Lutein/Minerals [Ocuvite with Lutein Tablet] 1 tab PO DAILY 05/03/16 Levothyroxine Sodium [Synthroid] 88 mcg PO DAILY 05/31/17 ALPRAZolam [Xanax] 0.25 mg PO DAILY PRN #30 06/05/17 Glimepiride [Amaryl] 1 mg PO DAILY 04/28/18 metFORMIN HCL [Glucophage] 500 mg PO BID 04/28/18 Gabapentin [Neurontin] 100 mg PO BID PRN 05/25/20 Atorvastatin [Lipitor] 40 mg PO DAILY 03/26/21 Aspirin EC [Ecotrin Low Dose] 81 mg PO DAILY 07/19/21 Famotidine 20 mg PO BID 07/19/21 Isosorbide Mononitrate ER [Imdur] 30 mg PO DAILY 07/19/21 Metoprolol Tartrate [Lopressor] 50 mg PO BID 07/19/21 Cholecalciferol [Vitamin D3 (25 Mcg = 1000 Iu)] 25 mcg PO BID 08/19/22 Fluticasone Nasal [place] [Flonase Nasal [place]] 2 spray EA NOSTRIL DAILY PRN 08/19/22 Sennosides [Senokot] 8.6 mg PO BID PRN #20 tab 08/24/22 Meloxicam [Mobic] 7.5 mg PO DAILY #20 tab 10/17/22 Clopidogrel [Plavix] 75 mg PO DAILY 11/09/22 amLODIPine [Norvasc] 10 mg PO DAILY 30 Days #30 tab 11/12/22 Acetaminophen-Codeine 300-30mg [Tylenol w/codeine #3] 1 tab PO Q6H PRN 12/19/22 Controlled Substance Measures - Controlled Substance Measures Is patient prescribed a controlled substance at discharge?: No
== END ==
LOC: PNWHC3 08:54
PROVIDERS: ATTEND Specialist
DX: M54.81 Occipital neuralgia (principal); G44.86 Cervicogenic headache; G89.29 Other chronic pain; Z91.048 Other nonmedicinal substance allergy status; Z88.8 Allergy status to other drugs, medicaments and biological substances
CPT/HCPCS: 99211

== ENCOUNTER 2023-02-18 19:39 | Inpatient (IN) | payer MEDICARE, BC ==
--- NOTE | 2023-02-18 20:23 | ED ---
General Adult HPI - General Chief complaint: Chest Pain Stated complaint: Chest pain, sob Time Seen by Provider: 02/18/23 19:48 Source: patient, RN notes reviewed, old records reviewed Mode of arrival: ambulatory Limitations: no limitations - History of Present Illness Initial comments: 87-year-old female presenting for evaluation of chest pain. Symptoms began approximately 8 hours prior to arrival. She has known coronary artery disease with multiple stents. She had some associated nausea without vomiting. She states she became diaphoretic. She also complained of some right-sided lower abdominal pain and states she had multiple bowel movements. No measured fever. She states she has chronic CHF and states that her bilateral lower extremities have improved recently. She does report mild dyspnea. - Related Data Home Medications Medication Instructions Recorded Confirmed Vits A,C,E/Lutein/Minerals 1 tab PO HS 05/03/16 02/18/23 [Ocuvite with Lutein Tablet] Levothyroxine Sodium [Synthroid] 88 mcg PO DAILY 05/31/17 02/18/23 Glimepiride [Amaryl] 1 mg PO AC-BRKFST 04/28/18 02/18/23 metFORMIN HCL [Glucophage] 500 mg PO AC-BID 04/28/18 02/18/23 Gabapentin [Neurontin] 100 - 200 mg PO BID PRN 05/25/20 02/18/23 Atorvastatin [Lipitor] 40 mg PO DAILY 03/26/21 02/18/23 Aspirin EC [Ecotrin Low Dose] 81 mg PO DAILY 07/19/21 02/18/23 Famotidine 20 mg PO BID 07/19/21 02/18/23 Isosorbide Mononitrate ER [Imdur] 30 mg PO DAILY 07/19/21 02/18/23 Metoprolol Tartrate [Lopressor] 50 mg PO BID 07/19/21 02/18/23 Cholecalciferol [Vitamin D3 (25 25 mcg PO BID 08/19/22 02/18/23 Mcg = 1000 Iu)] Clopidogrel [Plavix] 75 mg PO DAILY 11/09/22 02/18/23 Acetaminophen-Codeine 300-30mg 1 tab PO Q6H PRN 12/19/22 02/18/23 [Tylenol w/codeine #3] Furosemide [Lasix] 20 mg PO DAILY 06/24/23 06/24/23 Previous Rx's Medication Instructions Recorded ALPRAZolam [Xanax] 0.25 mg PO DAILY PRN #30 06/05/17 Sennosides [Senokot] 8.6 mg PO BID PRN #20 tab 08/24/22 amLODIPine [Norvasc] 10 mg PO DAILY 30 Days #30 tab 11/12/22 Losartan [Cozaar] 100 mg PO DAILY #30 tab 02/20/23 Allergies Allergy/AdvReac Type Severity Reaction Status Date / Time aspartame Allergy Severe Anaphylaxis- Verified 02/18/23 21:56 swelling throat & tongue PAPER TAPE Allergy Unknown Rash/Hives Uncoded 01/09/23 10:29 Review of Systems ROS Statement: Those systems with pertinent positive or pertinent negative responses have been documented in the HPI. ROS Other: All systems not noted in ROS Statement are negative. 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 , GRAND TRAVERSE-HEARING AIDS, WEAKNESS RIGHT SIDE -USES WALKER WITH WHEELS. Last Myocardial Infarction Date:: 09/2018 History of Any Multi-Drug Resistant Organisms: None Reported Past Surgical History: Back Surgery, Breast Surgery, Heart Catheterization With Stent, Hysterectomy, Orthopedic Surgery, Tubal Ligation Additional Past Surgical History / Comment(s): PCI with a total of 7 stents, low back surgery, L breast benign bx, R rotator cuff repair, R eye cataract, multiple laser eye surgeries, bilateral eye stents-R one fell out, thyroidectomy d/t nodules, temporal artery bx, cervical and lumbar injections. Past Anesthesia/Blood Transfusion Reactions: Previous Problems w/ Anesthesia, Postoperative Nausea & Vomiting (PONV) Additional Past Anesthesia/Blood Transfusion Reaction / Comment(s): hard to wake up Date of Last Stent Placement:: 10/19/18 Past Psychological History: Anxiety Smoking Status: Never smoker Past Alcohol Use History: None Reported Past Drug Use History: None Reported - Past Family History Mother Family Medical History: Myocardial Infarction (LA) Additional Family Medical History / Comment(s): MOTHER OF LA AGE 57YRS. Brother(s) Family Medical History: Myocardial Infarction (LA) Additional Family Medical History / Comment(s): BROTHER OF A LA AGE 60YRS. Father Family Medical History: No Reported History Additional Family Medical History / Comment(s): FATHER LIVED TO BE 90YRS OLD. General Exam Limitations: no limitations General appearance: alert, in no apparent distress Head exam: Present: atraumatic, normocephalic Eye exam: Present: normal appearance, PERRL Neck exam: Present: normal inspection Respiratory exam: Present: decreased breath sounds. Absent: respiratory distr ess, wheezes Cardiovascular Exam: Present: regular rate, normal rhythm GI/Abdominal exam: Present: distended, tenderness (Right lower quadrant) Extremities exam: Present: normal capillary refill, pedal edema Neurological exam: Present: alert, oriented X3 Psychiatric exam: Present: normal affect, normal mood Skin exam: Present: warm, dry, intact Course Vital Signs 02/18/23 02/18/23 02/18/23 19:41 19:53 19:58 Temperature 98.1 F Pulse Rate 70 70 66 Respiratory 18 16 Rate Blood Pressure 163/62 O2 Sat by Pulse 97 Oximetry 02/18/23 02/18/23 02/18/23 20:00 20:10 20:20 Temperature Pulse Rate 65 68 66 Respiratory 14 17 Rate Blood Pressure O2 Sat by Pulse Oximetry 02/18/23 02/18/23 02/18/23 20:30 20:40 20:50 Temperature Pulse Rate 64 63 63 Respiratory 13 Rate Blood Pressure O2 Sat by Pulse 99 98 98 Oximetry 02/18/23 02/18/23 02/18/23 21:10 21:23 21:30 Temperature Pulse Rate 68 65 61 Respiratory 29 H 31 H Rate Blood Pressure O2 Sat by Pulse 99 99 98 Oximetry 02/18/23 02/18/23 02/18/23 21:40 21:50 22:00 Temperature Pulse Rate 62 62 64 Respiratory 14 Rate Blood Pressure O2 Sat by Pulse 98 97 98 Oximetry 02/18/23 02/18/23 02/18/23 22:10 22:20 22:30 Temperature Pulse Rate 64 63 64 Respiratory 12 12 14 Rate Blood Pressure 185/66 O2 Sat by Pulse 98 98 98 Oximetry 02/18/23 02/18/23 02/18/23 22:40 22:50 23:00 Temperature Pulse Rate 65 67 65 Respiratory 18 11 L 17 Rate Blood Pressure O2 Sat by Pulse 98 99 97 Oximetry 02/18/23 02/18/23 02/18/23 23:10 23:20 23:30 Temperature Pulse Rate 69 66 68 Respiratory 22 20 Rate Blood Pressure 154/76 O2 Sat by Pulse 98 97 Oximetry Medical Decision Making - Medical Decision Making Was pt. sent in by a medical professional or institution (, PA, PALAEONTOLOGIST, urgent care, hospital, or intermediate...) When possible be specific @ -No Did you speak to anyone other than the patient for history (EMS, parent, family, police, friend...)? What history was obtained from this source @ -No Did you review nursing and triage notes (agree or disagree)? Why? @ -I reviewed and agree with nursing and triage notes Were old charts reviewed (outside hosp., previous admission, EMS record, old EKG, old radiological studies, urgent care reports/EKG's, intermediate records)? Report findings @ -No old charts were reviewed Differential Diagnosis (chest pain, altered mental status, abdominal pain women, abdominal pain men, vaginal bleeding, weakness, fever, dyspnea, syncope, headac he, dizziness, GI bleed, back pain, seizure, CVA, palpatations, mental health, musculoskeletal)? @ Differential Chest Pain: Stable Angina, Unstable Angina, STEMI, NSTEMI Aortic Dissection, Pneumothorax, Musculoskeletal, Esophageal Spasm GERD, Cholecystitis, Pancreatitis, Zoster, this is not meant to be an all-inclusive list. Interpreted by me (3pts min.). @ Sinus rhythm, right bundle branch block, rate of 66, VT interval 195, QRS duration 127, QTC 4:[address] segment elevation. X-rays interpreted by me (1pt min.). @ cardiomegaly, no focal pneumonia no pneumothorax CT interpreted by me (1pt min.). @ -[CT abdomen without contrast, showing right hydronephrosis U/S interpreted by me (1pt. min.). @ -None done What testing was considered but not performed or refused? (CT, X-rays, U/S, labs)? Why? @ -None What meds were considered but not given or refused? Why? @ -None Did you discuss the management of the patient with other professionals (professionals i.e. , PA, PALAEONTOLOGIST, lab, RT, psych nurse, director of social work, civil drafting technician, teacher, toxics program officer, case loader operator)? Give summary @ -Dr Sheet Was smoking cessation discussed for >3mins.? @ -No Was critical care preformed (if so, how long)? @ -No Were there social determinants of health that impacted care today? How? (Homelessness, low income, unemployed, alcoholism, drug addiction, transportation, low edu. Level, literacy, decrease access to med. care, assisted, rehab)? @ -No Was there de-escalation of care discussed even if they declined (Discuss DNR or withdrawal of care, Hospice)? DNR status @ -No What co-morbidities impacted this encounter? (DM, HTN, Smoking, COPD, CAD, Cancer, CVA, ARF, Chemo, Hep., AIDS, mental health diagnosis, sleep apnea, morbid obesity)? CAD, hypertension, TIAs patient admitted / discharged? Hospital course, mention meds given and route, prescriptions, significant lab abnormalities, going to OR and other pertinent info. 87-year-old female history of CAD presenting with central chest discomfort and radiation to the right jaw. This was associated with nausea and diaphoresis. Patient's symptoms have resolved prior to arrival. She also complained of some right lower quadrant abdominal pain. No dysuria. No diarrhea. No vomiting. No fever. Patient feels significantly better at the time my evaluation. EKG shows right bundle branch block without ST segment elevation. Chest x-ray is negative for acute findings. Patient has a normal CBC, mild hyponatremia 128. Negative initial troponin, negative urinalysis. I did also perform CT imaging of the abdomen which shows a right-sided hydronephrosis. Patient will be kept in observation for serial cardiac enzymes, telemetry, cardiology consultation. nosed new problem with uncertain prognosis? @ -No Drug Therapy requiring intensive monitoring for toxicity (Heparin, Nitro, Insulin, Cardizem)? @ -No Were any procedures done? @ -No Diagnosis/symptom? @ -Chest pain rule out Acute, or Chronic, or Acute on Chronic? @ Acute Uncomplicated (without systemic symptoms) or Complicated (systemic symptoms)? @ -default Side effects of treatment? @ -No Exacerbation, Progression, or Severe Exacerbation? @ -No Poses a threat to life or bodily function? How? (Chest pain, [place], [place], pneumonia, PE, COPD, DKA, ARF, appy, cholecystitis, CVA, Diverticulitis, Homicidal, Suicidal, threat to staff... and all critical care pts) @ yeS, chest pain - Lab Data Result diagrams: 02/20/23 11:48 02/20/23 11:48 Lab Results 02/17/23 02/18/23 02/18/23 Range/Units 23:45 20:20 20:20 WBC 7.2 (3.8-10.6) k/uL RBC 4.29 (3.80-5.40) m/uL Hgb 13.0 (11.4-16.0) gm/dL Hct 37.9 (34.0-46.0) % MCV 88.4 (80.0-100.0) fL MCH 30.4 (25.0-35.0) pg MCHC 34.4 (31.0-37.0) g/dL RDW 13.0 (11.5-15.5) % Plt Count 320 (150-450) k/uL MPV 8.1 Neutrophils % 52 % Lymphocytes % 34 % Monocytes % 7 % Eosinophils % 4 % Basophils % 1 % Neutrophils # 3.7 (1.3-7.7) k/uL Lymphocytes # 2.5 (1.0-4.8) k/uL Monocytes # 0.5 (0-1.0) k/uL Eosinophils # 0.3 (0-0.7) k/uL Basophils # 0.0 (0-0.2) k/uL PT 10.0 (9.0-12.0) sec INR 0.9 (<1.2) APTT 22.8 (22.0-30.0) sec Sodium (137-145) mmol/L Potassium (3.5-5.1) mmol/L Chloride (98-107) mmol/L Carbon Dioxide (22-30) mmol/L Anion Gap mmol/L BUN (7-17) mg/dL Creatinine (0.52-1.04) mg/dL Est GFR (CKD-EPI)AfAm (>60 ml/min/1.73 sqM) Est GFR (CKD-EPI)NonAf (>60 ml/min/1.73 sqM) Glucose (74-99) mg/dL POC Glucose (mg/dL) (70-110) mg/dL POC Glu Motocross Racer ID Calcium (8.4-10.2) mg/dL Magnesium (1.6-2.3) mg/dL Total Bilirubin (0.2-1.3) mg/dL AST (14-36) U/L ALT (4-34) U/L Alkaline Phosphatase (38-126) U/L Troponin I <0.012 (0.000-0.034) ng/mL NT-Pro-B Natriuret Pep pg/mL Total Protein (6.3-8.2) g/dL Albumin (3.5-5.0) g/dL Urine Color Urine Appearance (Clear) Urine pH (5.0-8.0) Ur Specific [place] (1.001-1.035) Urine Protein (Negative) Urine Glucose (UA) (Negative) Urine Ketones (Negative) Urine Blood (Negative) Urine Nitrite (Negative) Urine Bilirubin (Negative) Urine Urobilinogen (<2.0) mg/dL Ur Leukocyte Esterase (Negative) Urine RBC (0-5) /hpf Urine WBC (0-5) /hpf Ur Squamous Epith Cells (0-4) /hpf Urine Bacteria (None) /hpf 02/18/23 02/18/23 02/18/23 Range/Units 20:20 20:20 20:20 WBC (3.8-10.6) k/uL RBC (3.80-5.40) m/uL Hgb (11.4-16.0) gm/dL Hct (34.0-46.0) % MCV (80.0-100.0) fL MCH (25.0-35.0) pg MCHC (31.0-37.0) g/dL RDW (11.5-15.5) % Plt Count (150-450) k/uL MPV Neutrophils % % Lymphocytes % % Monocytes % % Eosinophils % % Basophils % % Neutrophils # (1.3-7.7) k/uL Lymphocytes # (1.0-4.8) k/uL Monocytes # (0-1.0) k/uL Eosinophils # (0-0.7) k/uL Basophils # (0-0.2) k/uL PT (9.0-12.0) sec INR (<1.2) APTT (22.0-30.0) sec Sodium 128 L (137-145) mmol/L Potassium 4.4 (3.5-5.1) mmol/L Chloride 92 L (98-107) mmol/L Carbon Dioxide 24 (22-30) mmol/L Anion Gap 12 mmol/L BUN 21 H (7-17) mg/dL Creatinine 0.86 (0.52-1.04) mg/dL Est GFR (CKD-EPI)AfAm 70 (>60 ml/min/1.73 sqM) Est GFR (CKD-EPI)NonAf 61 (>60 ml/min/1.73 sqM) Glucose 181 H (74-99) mg/dL POC Glucose (mg/dL) (70-110) mg/dL POC Glu Motocross Racer ID Calcium 9.2 (8.4-10.2) mg/dL Magnesium 1.6 (1.6-2.3) mg/dL Total Bilirubin 0.4 (0.2-1.3) mg/dL AST 25 (14-36) U/L ALT 23 (4-34) U/L Alkaline Phosphatase 156 H (38-126) U/L Troponin I <0.012 (0.000-0.034) ng/mL NT-Pro-B Natriuret Pep 79 pg/mL Total Protein 7.3 (6.3-8.2) g/dL Albumin 4.5 (3.5-5.0) g/dL Urine Color Urine Appearance (Clear) Urine pH (5.0-8.0) Ur Specific [place] (1.001-1.035) Urine Protein (Negative) Urine Glucose (UA) (Negative) Urine Ketones (Negative) Urine Blood (Negative) Urine Nitrite (Negative) Urine Bilirubin (Negative) Urine Urobilinogen (<2.0) mg/dL Ur Leukocyte Esterase (Negative) Urine RBC (0-5) /hpf Urine WBC (0-5) /hpf Ur Squamous Epith Cells (0-4) /hpf Urine Bacteria (None) /hpf 02/18/23 02/19/23 02/19/23 Range/Units 21:47 02:58 09:04 WBC (3.8-10.6) k/uL RBC (3.80-5.40) m/uL Hgb (11.4-16.0) gm/dL Hct (34.0-46.0) % MCV (80.0-100.0) fL MCH (25.0-35.0) pg MCHC (31.0-37.0) g/dL RDW (11.5-15.5) % Plt Count (150-450) k/uL MPV Neutrophils % % Lymphocytes % % Monocytes % % Eosinophils % % Basophils % % Neutrophils # (1.3-7.7) k/uL Lymphocytes # (1.0-4.8) k/uL Monocytes # (0-1.0) k/uL Eosinophils # (0-0.7) k/uL Basophils # (0-0.2) k/uL PT (9.0-12.0) sec INR (<1.2) APTT (22.0-30.0) sec Sodium (137-145) mmol/L Potassium (3.5-5.1) mmol/L Chloride (98-107) mmol/L Carbon Dioxide (22-30) mmol/L Anion Gap mmol/L BUN (7-17) mg/dL Creatinine (0.52-1.04) mg/dL Est GFR (CKD-EPI)AfAm (>60 ml/min/1.73 sqM) Est GFR (CKD-EPI)NonAf (>60 ml/min/1.73 sqM) Glucose (74-99) mg/dL POC Glucose (mg/dL) 220 H (70-110) mg/dL POC Glu Motocross Racer ID Gisell Kate Calcium (8.4-10.2) mg/dL Magnesium (1.6-2.3) mg/dL Total Bilirubin (0.2-1.3) mg/dL AST (14-36) U/L ALT (4-34) U/L Alkaline Phosphatase (38-126) U/L Troponin I <0.012 (0.000-0.034) ng/mL NT-Pro-B Natriuret Pep pg/mL Total Protein (6.3-8.2) g/dL Albumin (3.5-5.0) g/dL Urine Color Colorless Urine Appearance Clear (Clear) Urine pH 7.5 (5.0-8.0) Ur Specific [place] 1.004 (1.001-1.035) Urine Protein Negative (Negative) Urine Glucose (UA) Negative (Negative) Urine Ketones Negative (Negative) Urine Blood Negative (Negative) Urine Nitrite Negative (Negative) Urine Bilirubin Negative (Negative) Urine Urobilinogen <2.0 (<2.0) mg/dL Ur Leukocyte Esterase Trace H (Negative) Urine RBC <1 (0-5) /hpf Urine WBC 3 (0-5) /hpf Ur Squamous Epith Cells 1 (0-4) /hpf Urine Bacteria Rare H (None) /hpf 02/20/23 02/20/23 02/20/23 Range/Units 10:30 11:28 11:48 WBC 8.0 (3.8-10.6) k/uL RBC 4.81 (3.80-5.40) m/uL Hgb 14.4 (11.4-16.0) gm/dL Hct 42.7 (34.0-46.0) % MCV 88.9 (80.0-100.0) fL MCH 29.9 (25.0-35.0) pg MCHC 33.6 (31.0-37.0) g/dL RDW 13.2 (11.5-15.5) % Plt Count 335 (150-450) k/uL MPV 8.8 Neutrophils % 65 % Lymphocytes % 23 % Monocytes % 6 % Eosinophils % 4 % Basophils % 0 % Neutrophils # 5.2 (1.3-7.7) k/uL Lymphocytes # 1.8 (1.0-4.8) k/uL Monocytes # 0.5 (0-1.0) k/uL Eosinophils # 0.3 (0-0.7) k/uL Basophils # 0.0 (0-0.2) k/uL PT (9.0-12.0) sec INR (<1.2) APTT (22.0-30.0) sec Sodium (137-145) mmol/L Potassium (3.5-5.1) mmol/L Chloride (98-107) mmol/L Carbon Dioxide (22-30) mmol/L Anion Gap mmol/L BUN (7-17) mg/dL Creatinine (0.52-1.04) mg/dL Est GFR (CKD-EPI)AfAm (>60 ml/min/1.73 sqM) Est GFR (CKD-EPI)NonAf (>60 ml/min/1.73 sqM) Glucose (74-99) mg/dL POC Glucose (mg/dL) 269 H 266 H (70-110) mg/dL POC Glu Motocross Racer Niurka Hdez Alexandra Calcium (8.4-10.2) mg/dL Magnesium (1.6-2.3) mg/dL Total Bilirubin (0.2-1.3) mg/dL AST (14-36) U/L ALT (4-34) U/L Alkaline Phosphatase (38-126) U/L Troponin I (0.000-0.034) ng/mL NT-Pro-B Natriuret Pep pg/mL Total Protein (6.3-8.2) g/dL Albumin (3.5-5.0) g/dL Urine Color Urine Appearance (Clear) Urine pH (5.0-8.0) Ur Specific [place] (1.001-1.035) Urine Protein (Negative) Urine Glucose (UA) (Negative) Urine Ketones (Negative) Urine Blood (Negative) Urine Nitrite (Negative) Urine Bilirubin (Negative) Urine Urobilinogen (<2.0) mg/dL Ur Leukocyte Esterase (Negative) Urine RBC (0-5) /hpf Urine WBC (0-5) /hpf Ur Squamous Epith Cells (0-4) /hpf Urine Bacteria (None) /hpf 02/20/23 02/20/23 02/20/23 Range/Units 11:48 11:48 11:48 WBC (3.8-10.6) k/uL RBC (3.80-5.40) m/uL Hgb (11.4-16.0) gm/dL Hct (34.0-46.0) % MCV (80.0-100.0) fL MCH (25.0-35.0) pg MCHC (31.0-37.0) g/dL RDW (11.5-15.5) % Plt Count (150-450) k/uL MPV Neutrophils % % Lymphocytes % % Monocytes % % Eosinophils % % Basophils % % Neutrophils # (1.3-7.7) k/uL Lymphocytes # (1.0-4.8) k/uL Monocytes # (0-1.0) k/uL Eosinophils # (0-0.7) k/uL Basophils # (0-0.2) k/uL PT 9.9 (9.0-12.0) sec INR 0.9 (<1.2) APTT 24.7 (22.0-30.0) sec Sodium 131 L (137-145) mmol/L Potassium 4.4 (3.5-5.1) mmol/L Chloride 94 L (98-107) mmol/L Carbon Dioxide 25 (22-30) mmol/L Anion Gap 12 mmol/L BUN 24 H (7-17) mg/dL Creatinine 0.82 (0.52-1.04) mg/dL Est GFR (CKD-EPI)AfAm 73 (>60 ml/min/1.73 sqM) Est GFR (CKD-EPI)NonAf 64 (>60 ml/min/1.73 sqM) Glucose 258 H (74-99) mg/dL POC Glucose (mg/dL) (70-110) mg/dL POC Glu Motocross Racer ID Calcium 9.1 (8.4-10.2) mg/dL Magnesium (1.6-2.3) mg/dL Total Bilirubin 0.7 (0.2-1.3) mg/dL AST 26 (14-36) U/L ALT 22 (4-34) U/L Alkaline Phosphatase 163 H (38-126) U/L Troponin I <0.012 (0.000-0.034) ng/mL NT-Pro-B Natriuret Pep pg/mL Total Protein 7.3 (6.3-8.2) g/dL Albumin 4.5 (3.5-5.0) g/dL Urine Color Urine Appearance (Clear) Urine pH (5.0-8.0) Ur Specific [place] (1.001-1.035) Urine Protein (Negative) Urine Glucose (UA) (Negative) Urine Ketones (Negative) Urine Blood (Negative) Urine Nitrite (Negative) Urine Bilirubin (Negative) Urine Urobilinogen (<2.0) mg/dL Ur Leukocyte Esterase (Negative) Urine RBC (0-5) /hpf Urine WBC (0-5) /hpf Ur Squamous Epith Cells (0-4) /hpf Urine Bacteria (None) /hpf Disposition Clinical Impression: Chest pain Disposition: ADMITTED IP TO THIS HOSP Condition: Stable Is patient prescribed a controlled substance at d/c from ED?: No Time of Disposition: 23:09
[2023-02-18 20:26] LABS: Basophils % (A) 1 %; Eosinophils # (A) 0.3 k/uL (0-0.7); Eosinophils % (A) 4 %; HCT 37.9 % (34.0-46.0); Lymphocytes # (A) 2.5 k/uL (1.0-4.8); Lymphocytes % (A) 34 %; MCH 30.4 pg (25.0-35.0); MCHC 34.4 g/dL (31.0-37.0); MCV 88.4 fL (80.0-100.0); Mean Platelet Volume 8.1; Monocytes # (A) 0.5 k/uL (0-1.0); Monocytes % (A) 7 %; Neutrophils # (A) 3.7 k/uL (1.3-7.7); Neutrophils % (A) 52 %; Platelet Count 320 k/uL (150-450); RBC 4.29 m/uL (3.80-5.40); WBC 7.2 k/uL (3.8-10.6)
[2023-02-18 20:38] LABS: INR 0.9 (<1.2); Partial Thromboplastin Time 22.8 sec (22.0-30.0)
[2023-02-18 20:39] LABS: ALT 23 U/L (4-34); AST 25 U/L (14-36); African American GFR (CKD) 70 (>60 ml/min/1.73 sqM); Albumin 4.5 g/dL (3.5-5.0); Alkaline Phosphatase 156 U/L (38-126); Anion Gap 12 mmol/L; Blood Urea Nitrogen 21 mg/dL (7-17); Calcium 9.2 mg/dL (8.4-10.2); Carbon Dioxide 24 mmol/L (22-30); Chloride 92 mmol/L (98-107); Glucose 181 mg/dL (74-99); Magnesium 1.6 mg/dL (1.6-2.3); Non-African American GFR(CKD) 61 (>60 ml/min/1.73 sqM); Potassium 4.4 mmol/L (3.5-5.1); Sodium 128 mmol/L (137-145); Total Bilirubin 0.4 mg/dL (0.2-1.3); Total Protein 7.3 g/dL (6.3-8.2)
--- NOTE | 2023-02-18 20:45 | XR ---
EXAMINATION TYPE: XR chest 2V DATE OF EXAM: 02/18/2023 COMPARISON: 01/09/2023 INDICATION: Chest pain TECHNIQUE: Frontal and lateral views of the chest are obtained. FINDINGS: The heart size is normal. The pulmonary vasculature is normal. The lungs are clear. IMPRESSION: 1. No acute pulmonary process.
--- NOTE | 2023-02-18 22:18 | CT ---
EXAMINATION TYPE: CT abdomen pelvis wo con DATE OF EXAM: 02/18/2023 COMPARISON: 08/20/2022 INDICATION: RLQ pain, constipation DLP: 691.4 mGycm, Automated exposure control for dose reduction was used. CONTRAST: 0 mL of Isovue 300. Study performed without Oral Contrast TECHNIQUE: Axial images were obtained from above the diaphragm to the pubic rami in the axial plane a t 5 mm thick sections. Reconstructed images are reviewed on the computer in the coronal plane. FINDINGS: Limited CT sections are obtained the lung bases. The lung bases are clear. There is a moderate size hiatal hernia present. CT ABDOMEN: Liver: Normal Spleen: Normal Pancreas: Normal Adrenal glands: Pancreas is atrophic Gallbladder: Normal Kidneys: No masses are evident. There is a right hydronephrosis. Moderate to marked right hydroureter is evident this extends to the pelvic inlet. Distal ureters not identified. No obstructing renal or ureteral stone is identified . There is an extrarenal pelvis on the left. Aorta: Vascular calcification is within the aorta. Inferior vena cava: Normal. CT PELVIS: Loops of bowel within the abdomen and pelvis are normal. This study is without oral contrast whic h limits the bowel evaluation. Appendix: Normal as visualized. No dilated tubular structure or inflammatory changes are identified. Urinary bladder: Distended. Genitourinary structures: Uterus and ovaries are not identified Osseous structures: No suspicious lytic or sclerotic lesions. Facet degenerative changes are present. IMPRESSIONS: 1. Moderate right hydronephrosis and moderate to marked hydroureter extending to the pelvic inlet. A n etiology for obstruction is not identified. Urinary bladder is distended which may contribute to th e appearance. 2. Moderate-sized hiatal hernia.
[2023-02-18 22:55] LABS: Appearance,Urine Clear (Clear); Bacteria,Urine Rare /hpf; Bilirubin,Urine Negative (Negative); Blood,Urine Negative (Negative); Color,Urine Colorless; Glucose,Urine (UA) Negative (Negative); Ketones,Urine Negative (Negative); Leukocyte Esterase,Urine Trace (Negative); Nitrite,Urine Negative (Negative); PH, Urine 7.5 (5.0-8.0); Protein,Urine Negative (Negative); RBC,Urine <1 /hpf (0-5); Specific Gravity,Urine 1.004 (1.001-1.035); Squamous Epithelial Cell,Urine 1 /hpf (0-4); Urobilinogen,Urine <2.0 mg/dL (<2.0); WBC,Urine 3 /hpf (0-5)
[2023-02-18] MEDS ORDERED: NALOXONE 0.4 MG/ML 1 ML VIAL IV PRN (23:03)
[2023-02-18] MEDS ORDERED: ACETAMINOPHEN TAB 325 MG TAB PO PRN (23:03)
[2023-02-19] MEDS: ALPRAZolam 0.25 MG TAB PO PRN (00:35)
[2023-02-19] MEDS: Acetaminophen-Codeine 300-30mg TAB PO PRN ×2 (02:08→19:53)
[2023-02-19] MEDS: LEVOTHYROXINE 88 MCG TAB PO SCH (06:28)
[2023-02-19] MEDS ORDERED: FAMOTIDINE 20 MG TAB PO SCH (09:00)
[2023-02-19] MEDS ORDERED: LOSARTAN 25 MG TAB PO SCH (09:00)
[2023-02-19] MEDS: CLOPIDOGREL 75 MG TAB PO SCH (09:02)
[2023-02-19] MEDS: METOPROLOL TARTRATE 50 MG TAB PO SCH ×2 (09:02→19:52)
[2023-02-19] MEDS: ASPIRIN 81 MG PO SCH (09:03)
[2023-02-19] MEDS: LOSARTAN 50 MG TAB PO SCH (09:03)
[2023-02-19] MEDS: ATORVASTATIN 40 MG TAB PO SCH (09:03)
[2023-02-19] MEDS: ISOSORBIDE MONONITRATE ER 30 MG TAB.ER.24H PO SCH (09:03)
[2023-02-19] MEDS: metFORMIN 500 MG TAB PO SCH ×2 (09:03→17:55)
[2023-02-19] MEDS: FUROSEMIDE 20 MG TAB PO SCH (09:03)
[2023-02-19] MEDS: amLODIPine 10 MG TAB PO SCH (09:03)
[2023-02-19 09:06] LABS: Glucose,Whole Blood 220 mg/dL (70-110)
--- NOTE | 2023-02-19 11:11 | P.CRDCN ---
History of Present Illness Consult date: 02/19/23 Consult reason: chest pain History of present illness: The patient's is an 87-year-old female with past medical history of coronary artery disease with prior stenting, hypertension, hyperlipidemia, diabetes mellitus, carotid stenosis and CVA. The patient follows in the office with Dr. MATT Silva. The patient presented to the emergency room with chest heaviness and associated shortness of breath. She states this started abruptly yesterday when she was sitting in the chair. She states she felt uncomfortable, therefore got up to walk around, when she felt as though she could not take in a deep breath. The patient states she has seen her automotive technology instructor approximately one month ago and she has been compliant with her medication regimen. DIAGNOSTICS: EKG shows sinus bradycardia with right bundle branch block Chest x-ray shows no acute cardiopulmonary process Computed tomography scan of the abdomen and pelvis shows moderate right hydronep hrosis and moderate sized hiatal hernia labs: WBC 7.2, hemoglobin 13.0, hematocrit 37.9, platelet 320, sodium 128, potassium 4.4, BUN 21, creatinine 0.86, magnesium 1.6, AST 25, ALT 23, troponins negative 3 REVIEW OF SYSTEMS: No fever or chills. No cough or expectoration. No diaphoresis. Patient denies headache, dizziness, blurred vision, double vision. Patient denies any stomach discomfort. No nausea, vomiting. No hematochezia. No hematemesis. Denies any black stools or blood in his stools. Denies dysuria or hematuria. No muscle weakness or numbness. Mild shortness of breath with exertion. No chest pain. PHYSICAL EXAMINATION: This is a 87-year-old female in no apparent distress at the time of my examination. HEENT: Head is atraumatic, normocephalic. Pupils are equal, round. There is no jugular venous distention. No carotid bruit is heard. CHEST EXAMINATION: Lungs are clear to auscultation. No chest wall tenderness is noted on palpation or with deep breathing. HEART EXAMINATION: Heart regular rate and rhythm. S1, S2 heard. Systolic murmur. No gallops or rub. ABDOMEN: Soft, nontender. Bowel sounds are heard. No organomegaly noted. EXTREMITIES: 1+ peripheral pulses. Mild left lower extremity edema and no calf tenderness noted. NEUROLOGIC EXAMINATION: Patient is awake, alert and oriented x3. FINAL ASSESSMENT AND PLAN: Chest discomfort No indication of acute coronary syndrome Hypertension, increased losartan History of hyperlipidemia History diabetes History of coronary artery disease History of carotid stenosis History of CVA PLAN: Increase losartan for blood pressure management No need for echocardiogram as well as completed back in October Once blood pressure is better controlled, outpatient follow-up with primary automotive technology instructor Dr. MATT Silva I am dictating on behalf of Dr Fermín Serrano's history/physical and assessment/plan. 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 , [place]-HEARING AIDS, WEAKNESS RIGHT SIDE -USES WALKER WITH WHEELS. Last Myocardial Infarction Date:: 09/2018 History of Any Multi-Drug Resistant Organisms: None Reported Past Surgical History: Back Surgery, Breast Surgery, Heart Catheterization With Stent, Hysterectomy, Orthopedic Surgery, Tubal Ligation Additional Past Surgical History / Comment(s): PCI with a total of 7 stents, low back surgery, L breast benign bx, R rotator cuff repair, R eye cataract, multiple laser eye surgeries, bilateral eye stents-R one fell out, thyroidect valentino d/t nodules, temporal artery bx, cervical and lumbar injections. Past Anesthesia/Blood Transfusion Reactions: Previous Problems w/ Anesthesia, Postoperative Nausea & Vomiting (PONV) Additional Past Anesthesia/Blood Transfusion Reaction / Comment(s): hard to wake up Date of Last Stent Placement:: 10/19/18 Past Psychological History: Anxiety Additional Psychological History / Comment(s): Son Geoffrey lives with her. She is visually impaired, reads with a lighted magnifying screen. She signs her name occasionally. Her sons take her to appts. Smoking Status: Never smoker Past Alcohol Use History: None Reported Past Drug Use History: None Reported - Past Family History Mother Family Medical History: Myocardial Infarction ([place]) Additional Family Medical History / Comment(s): MOTHER OF [place] AGE 57YRS. Brother(s) Family Medical History: Myocardial Infarction ([place]) Additional Family Medical History / Comment(s): BROTHER OF A [place] AGE 60YRS. Father Family Medical History: No Reported History Additional Family Medical History / Comment(s): FATHER LIVED TO BE 90YRS OLD. Medications and Allergies Home Medications Medication Instructions Recorded Confirmed Type Vits A,C,E/Lutein/Minerals 1 tab PO HS 05/03/16 02/18/23 History [Ocuvite with Lutein Tablet] Levothyroxine Sodium [Synthroid] 88 mcg PO DAILY 05/31/17 02/18/23 History ALPRAZolam [Xanax] 0.25 mg PO DAILY PRN #30 06/05/17 02/18/23 Rx Glimepiride [Amaryl] 1 mg PO AC-BRKFST 04/28/18 02/18/23 History metFORMIN HCL [Glucophage] 500 mg PO AC-BID 04/28/18 02/18/23 History Gabapentin [Neurontin] 100 - 200 mg PO BID PRN 05/25/20 02/18/23 History Atorvastatin [Lipitor] 40 mg PO DAILY 03/26/21 02/18/23 History Aspirin EC [Ecotrin Low Dose] 81 mg PO DAILY 07/19/21 02/18/23 History Famotidine 20 mg PO BID 07/19/21 02/18/23 History Isosorbide Mononitrate ER [Imdur] 30 mg PO DAILY 07/19/21 02/18/23 History Metoprolol Tartrate [Lopressor] 50 mg PO BID 07/19/21 02/18/23 History Cholecalciferol [Vitamin D3 (25 25 mcg PO BID 08/19/22 02/18/23 History Mcg = 1000 Iu)] Sennosides [Senokot] 8.6 mg PO BID PRN #20 tab 08/24/22 02/18/23 Rx Clopidogrel [Plavix] 75 mg PO DAILY 11/09/22 02/18/23 History amLODIPine [Norvasc] 10 mg PO DAILY 30 Days #30 tab 11/12/22 02/18/23 Rx Acetaminophen-Codeine 300-30mg 1 tab PO Q6H PRN 12/19/22 02/18/23 History [Tylenol w/codeine #3] Furosemide [Lasix] 20 mg PO DAILY 02/18/23 02/18/23 History Losartan Potassium [Cozaar] 25 mg PO DAILY 02/18/23 02/18/23 History Allergies Allergy/AdvReac Type Severity Reaction Status Date / Time aspartame Allergy Severe Anaphylaxis- Verified 02/18/23 21:56 swelling throat & tongue PAPER TAPE Allergy Unknown Rash/Hives Uncoded 01/09/23 10:29 Physical Exam Vitals: Vital Signs Temp Pulse Pulse Resp BP BP Pulse Ox 02/19/23 09:04 70 02/19/23 08:00 97.3 F L 57 L 14 155/62 99 02/19/23 00:24 97.6 F 59 L 17 163/71 100 02/18/23 23:30 68 20 154/76 97 02/18/23 23:20 66 02/18/23 23:10 69 22 98 02/18/23 23:00 65 17 97 02/18/23 22:50 67 11 L 99 02/18/23 22:40 65 18 98 02/18/23 22:30 64 14 98 02/18/23 22:20 63 12 98 02/18/23 22:10 64 12 185/66 98 02/18/23 22:00 64 98 02/18/23 21:50 62 97 02/18/23 21:40 62 14 98 02/18/23 21:30 61 31 H 98 02/18/23 21:23 65 29 H 99 02/18/23 21:10 68 99 02/18/23 20:50 63 13 98 02/18/23 20:40 63 98 02/18/23 20:30 64 99 02/18/23 20:20 66 02/18/23 20:10 68 17 02/18/23 20:00 65 14 02/18/23 19:58 66 02/18/23 19:53 70 16 02/18/23 19:41 98.1 F 70 18 163/62 97 Intake and Output 02/18/23 02/19/23 02/19/23 22:59 06:59 14:59 Intake Total 118 Output Total 600 Balance -600 118 Intake: Oral 118 Output: Urine 600 Other: # Voids 1 Weight 68.039 kg 68.039 kg Results 02/18/23 20:20 02/18/23 20:20 Cardiac Enzymes 02/17/23 02/18/23 02/18/23 Range/Units 23:45 20:20 20:20 AST 25 (14-36) U/L Troponin I <0.012 <0.012 (0.000-0.034) ng/mL 02/19/23 Range/Units 02:58 AST (14-36) U/L Troponin I <0.012 (0.000-0.034) ng/mL Coagulation 02/18/23 Range/Units 20:20 PT 10.0 (9.0-12.0) sec APTT 22.8 (22.0-30.0) sec CBC 02/18/23 Range/Units 20:20 WBC 7.2 (3.8-10.6) k/uL RBC 4.29 (3.80-5.40) m/uL Hgb 13.0 (11.4-16.0) gm/dL Hct 37.9 (34.0-46.0) % Plt Count 320 (150-450) k/uL Comprehensive Metabolic Panel 02/18/23 Range/Units 20:20 Sodium 128 L (137-145) mmol/L Potassium 4.4 (3.5-5.1) mmol/L Chloride 92 L (98-107) mmol/L Carbon Dioxide 24 (22-30) mmol/L BUN 21 H (7-17) mg/dL Creatinine 0.86 (0.52-1.04) mg/dL Glucose 181 H (74-99) mg/dL Calcium 9.2 (8.4-10.2) mg/dL AST 25 (14-36) U/L ALT 23 (4-34) U/L Alkaline Phosphatase 156 H (38-126) U/L Total Protein 7.3 (6.3-8.2) g/dL Albumin 4.5 (3.5-5.0) g/dL Current Medications Generic Name Dose Route Start Last Admin Trade Name Freq PRN Reason Stop Dose Admin Acetaminophen 650 mg 02/18/23 23:03 Acetaminophen Tab 325 Mg Tab PO Q6HR PRN Mild Pain or Fever > 100.5 Acetaminophen/Codeine Phosphate 1 each 02/18/23 23:04 02/19/23 02:08 Acetaminophen-Codeine 300-30mg Tab PO 1 each Q6H PRN Administration Pain Alprazolam 0.25 mg 02/18/23 23:04 02/19/23 00:35 Alprazolam 0.25 Mg Tab PO 0.25 mg DAILY PRN Administration Anxiety Amlodipine Besylate 10 mg 02/19/23 09:00 02/19/23 09:03 Amlodipine 10 Mg Tab PO 10 mg DAILY ANDREW Administration Aspirin 81 mg 02/19/23 09:00 02/19/23 09:03 Aspirin 81 Mg PO 81 mg DAILY ANDREW Administration Atorvastatin Calcium 40 mg 02/19/23 09:00 02/19/23 09:03 Atorvastatin 40 Mg Tab PO 40 mg DAILY ANDREW Administration Clopidogrel Bisulfate 75 mg 02/19/23 09:00 02/19/23 09:02 Clopidogrel 75 Mg Tab PO 75 mg DAILY ANDREW Administration Famotidine 20 mg 02/19/23 09:00 02/19/23 09:03 Famotidine 20 Mg Tab PO 20 mg BID ANDREW Administration Furosemide 20 mg 02/19/23 09:00 02/19/23 09:03 Furosemide 20 Mg Tab PO 20 mg DAILY ANDREW Administration Isosorbide Mononitrate 30 mg 02/19/23 09:00 02/19/23 09:03 Isosorbide Mononitrate Er 30 Mg Tab.Er.24h PO 30 mg DAILY ANDREW Administration Levothyroxine Sodium 88 mcg 02/19/23 07:00 02/19/23 06:28 Levothyroxine 88 Mcg Tab PO 88 mcg DAILY@0700 ANDREW Administration Losartan Potassium 50 mg 02/19/23 09:00 02/19/23 09:03 Losartan 50 Mg Tab PO 50 mg DAILY ANDREW Administration Metformin HCl 500 mg 02/19/23 07:30 02/19/23 09:03 Metformin 500 Mg Tab PO 500 mg AC-BID ANDREW Administration Metoprolol Tartrate 50 mg 02/19/23 09:00 02/19/23 09:02 Metoprolol Tartrate 50 Mg Tab PO 50 mg BID ANDREW Administration Naloxone HCl 0.2 mg 02/18/23 23:03 Naloxone 0.4 Mg/Ml 1 Ml Vial IV Q2M PRN Opioid Reversal Intake and Output 02/18/23 02/19/23 02/19/23 22:59 06:59 14:59 Intake Total 118 Output Total 600 Balance -600 118 Intake: Oral 118 Output: Urine 600 Other: # Voids 1 Weight 68.039 kg 68.039 kg 02/18/23 20:20 06/24/23 20:20
--- NOTE | 2023-02-19 11:47 | P.GSCN ---
History of Present Illness Consult date: 02/19/23 History of present illness: 87-year-old female in the hospital for chest pain and some abdominal pain. Computed tomography scan showed bilateral hydronephrosis and a distended bladder. We're asked see the patient. The computed tomography scan has been reviewed. There is bilateral hydronephrosis with a very distended bladder. She has no urinary tract issues other than occasional urgency to the point of incontinence due to her immobility. She was started on Lasix within the last week. Her BUN/creatinine are normal. She has not had infections hematuria. There is no history of stones. Review of Systems All systems: negative - Constitutional Denies fever, Denies weight loss - EENT Eyes: denies blurred vision Ears, nose, mouth and throat: Denies dysphagia - Cardiovascular Denies chest pain, Denies shortness of breath - Respiratory Denies cough, Denies 7 - Gastrointestinal Reports as per HPI - Genitourinary Genitourinary: Denies dysuria, Denies hematuria - Integumentary Denies rash, Denies unusual bruising - Neurological Denies headaches, Denies syncope - Hematologic/Lymphatic Denies easy bleeding, Denies easy bruising Past Medical History Past Medical History: Coronary Artery Disease (CAD), CVA/TIA, Diabetes Mellitus, Eye Disorder, GERD/Reflux, Hearing Disorder / Deafness, Hyperlipidemia, Hypertension, Myocardial Infarction ([place]), Osteoarthritis (OA), Thyroid Disorder Additional Past Medical History / Comment(s): EPISODES OF ANGIOEDEMA, NIDDM TYPE II, 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 , [place]-HEARING AIDS, WEAKNESS RIGHT SIDE -USES WALKER WITH WHEELS. Last Myocardial Infarction Date:: 09/2018 History of Any Multi-Drug Resistant Organisms: None Reported Past Surgical History: Back Surgery, Breast Surgery, Heart Catheterization With Stent, Hysterectomy, Orthopedic Surgery, Tubal Ligation Additional Past Surgical History / Comment(s): PCI with a total of 7 stents, low back surgery, L breast benign bx, R rotator cuff repair, R eye cataract, multiple laser eye surgeries, bilateral eye stents-R one fell out, thyroidectomy d/t nodules, temporal artery bx, cervical and lumbar injections. Past Anesthesia/Blood Transfusion Reactions: Previous Problems w/ Anesthesia, Postoperative Nausea & Vomiting (PONV) Additional Past Anesthesia/Blood Transfusion Reaction / Comm: hard to wake up Date of Last Stent Placement:: 10/19/18 Past Psychological History: Anxiety Additional Psychological History / Comment(s): Son Geoffrey lives with her. She is visually impaired, reads with a lighted magnifying screen. She signs her name occasionally. Her sons take her to appts. Smoking Status: Never smoker Past Alcohol Use History: None Reported Past Drug Use History: None Reported - Past Family History Mother Family Medical History: Myocardial Infarction ([place]) Additional Family Medical History / Comment(s): MOTHER OF [place] AGE 57YRS. Brother(s) Family Medical History: Myocardial Infarction ([place]) Additional Family Medical History / Comment(s): BROTHER OF A [place] AGE 60YRS. Father Family Medical History: No Reported History Additional Family Medical History / Comment(s): FATHER LIVED TO BE 90YRS OLD. Medications and Allergies Home Medications Medication Instructions Recorded Confirmed Type Vits A,C,E/Lutein/Minerals 1 tab PO HS 05/03/16 02/18/23 History [Ocuvite with Lutein Tablet] Levothyroxine Sodium [Synthroid] 88 mcg PO DAILY 05/31/17 02/18/23 History ALPRAZolam [Xanax] 0.25 mg PO DAILY PRN #30 06/05/17 02/18/23 Rx Glimepiride [Amaryl] 1 mg PO AC-BRKFST 04/28/18 02/18/23 History metFORMIN HCL [Glucophage] 500 mg PO AC-BID 04/28/18 02/18/23 History Gabapentin [Neurontin] 100 - 200 mg PO BID PRN 05/25/20 02/18/23 History Atorvastatin [Lipitor] 40 mg PO DAILY 03/26/21 02/18/23 History Aspirin EC [Ecotrin Low Dose] 81 mg PO DAILY 07/19/21 02/18/23 History Famotidine 20 mg PO BID 07/19/21 02/18/23 History Isosorbide Mononitrate ER [Imdur] 30 mg PO DAILY 07/19/21 02/18/23 History Metoprolol Tartrate [Lopressor] 50 mg PO BID 07/19/21 02/18/23 History Cholecalciferol [Vitamin D3 (25 25 mcg PO BID 08/19/22 02/18/23 History Mcg = 1000 Iu)] Sennosides [Senokot] 8.6 mg PO BID PRN #20 tab 08/24/22 02/18/23 Rx Clopidogrel [Plavix] 75 mg PO DAILY 11/09/22 02/18/23 History amLODIPine [Norvasc] 10 mg PO DAILY 30 Days #30 tab 11/12/22 02/18/23 Rx Acetaminophen-Codeine 300-30mg 1 tab PO Q6H PRN 12/19/22 02/18/23 History [Tylenol w/codeine #3] Furosemide [Lasix] 20 mg PO DAILY 02/18/23 02/18/23 History Losartan Potassium [Cozaar] 25 mg PO DAILY 02/18/23 02/18/23 History Allergies Allergy/AdvReac Type Severity Reaction Status Date / Time aspartame Allergy Severe Anaphylaxis- Verified 02/18/23 21:56 swelling throat & tongue PAPER TAPE Allergy Unknown Rash/Hives Uncoded 01/09/23 10:29 Surgical - Exam Vital Signs Temp Pulse Resp BP Pulse Ox 98.1 F 70 18 163/62 97 02/18/23 19:41 02/18/23 19:41 02/18/23 19:41 02/18/23 19:41 02/18/23 19:41 - General well developed, well nourished, no distress - Eyes PERRL - Respiratory normal respiratory effort - Cardiovascular Rhythm: regular - Abdomen Obese Abdomen: soft, non tender - Neurologic normal sensation - Musculoskeletal normal gait, normal posture - Psychiatric oriented to time, oriented to person, oriented to place, speech is normal, memory intact Results - Labs 02/18/23 20:20 02/18/23 20:20 Abnormal Lab Results - Last 24 Hours (Table) 02/18/23 02/18/23 02/19/23 Range/Units 20:20 21:47 09:04 Sodium 128 L (137-145) mmol/L Chloride 92 L (98-107) mmol/L BUN 21 H (7-17) mg/dL Glucose 181 H (74-99) mg/dL POC Glucose (mg/dL) 220 H (70-110) mg/dL Alkaline Phosphatase 156 H (38-126) U/L Ur Leukocyte Esterase Trace H (Negative) Urine Bacteria Rare H (None) /hpf Diabetes panel 02/18/23 Range/Units 20:20 Sodium 128 L (137-145) mmol/L Potassium 4.4 (3.5-5.1) mmol/L Chloride 92 L (98-107) mmol/L Carbon Dioxide 24 (22-30) mmol/L BUN 21 H (7-17) mg/dL Creatinine 0.86 (0.52-1.04) mg/dL Glucose 181 H (74-99) mg/dL Calcium 9.2 (8.4-10.2) mg/dL AST 25 (14-36) U/L ALT 23 (4-34) U/L Alkaline Phosphatase 156 H (38-126) U/L Total Protein 7.3 (6.3-8.2) g/dL Albumin 4.5 (3.5-5.0) g/dL Calcium panel 02/18/23 Range/Units 20:20 Calcium 9.2 (8.4-10.2) mg/dL Albumin 4.5 (3.5-5.0) g/dL Pituitary panel 02/18/23 Range/Units 20:20 Sodium 128 L (137-145) mmol/L Potassium 4.4 (3.5-5.1) mmol/L Chloride 92 L (98-107) mmol/L Carbon Dioxide 24 (22-30) mmol/L BUN 21 H (7-17) mg/dL Creatinine 0.86 (0.52-1.04) mg/dL Glucose 181 H (74-99) mg/dL Calcium 9.2 (8.4-10.2) mg/dL Adrenal panel 02/18/23 Range/Units 20:20 Sodium 128 L (137-145) mmol/L Potassium 4.4 (3.5-5.1) mmol/L Chloride 92 L (98-107) mmol/L Carbon Dioxide 24 (22-30) mmol/L BUN 21 H (7-17) mg/dL Creatinine 0.86 (0.52-1.04) mg/dL Glucose 181 H (74-99) mg/dL Calcium 9.2 (8.4-10.2) mg/dL Total Bilirubin 0.4 (0.2-1.3) mg/dL AST 25 (14-36) U/L ALT 23 (4-34) U/L Alkaline Phosphatase 156 H (38-126) U/L Total Protein 7.3 (6.3-8.2) g/dL Albumin 4.5 (3.5-5.0) g/dL - Imaging CT scan - abdomen: report reviewed, image reviewed CT scan - pelvis: report reviewed, image reviewed Assessment and Plan Assessment: Impression: Chest pain. Bilateral hydronephrosis with a distended bladder on computed tomography scan. Recommendations: Patient had a bladder scan by me during this interview and the residual is 0. Given the appearance of the CAT scan showing a very distended bladder and secondary hydronephrosis I suspect she just had a full bladder causing distention at the time of the scan. With a normal creatinine, no symptoms and a bladder that empties I do not think further intervention is required at this point in time.
--- NOTE | 2023-02-19 14:39 | P.HPIM ---
History of Present Illness H&P Date: 02/19/23 History of present illness; patient is a 87-year-old lady with past medical history significant for coronary artery disease, hypertension, hypothyroidism, non insulin-dependent diabetes mellitus, CHF who brought to the ER because of chest pain. Patient stated that chest pain started 8 hours prior to coming to the ER. Chest pain was central in location, pressure-like, nonradiating, no aggravating or relieving factors associated with this chest pain. Complains associated nausea but no vomiting. Patient also complaining of right lower abdominal pain denies any urinary symptoms of increased frequency or burning micturition or urgency. Because of this chest pain, patient was evaluated in the ER Initial lab work in the ER showed WBC 7.2, hemoglobin 13, platelet count 3.8, sodium 128, potassium 4.4, chloride 92, BUN 21, creatinine 0.86, Chest x-ray done showed no acute pulmonary process CT abdominal and pelvis done showed moderate right hydronephrosis and moderate to marked hydroureter extending to the pelvic inlet, moderate-sized hiatal hernia REVIEW OF SYSTEMS: CONSTITUTIONAL: No fever, no malaise, no fatigue. HEENT: No recent visual problems or hearing problems. Denied any sore throat. CARDIOVASCULAR: As mentioned in HPI PULMONARY: No shortness of breath, no cough, no hemoptysis. GASTROINTESTINAL: No diarrhea, no nausea, no vomiting, no abdominal pain. NEUROLOGICAL: No headaches, no weakness, no numbness. HEMATOLOGICAL: Denies any bleeding or petechiae. GENITOURINARY: As mentioned in HPI. MUSCULOSKELETAL/RHEUMATOLOGICAL: Denies any joint pain, swelling, or any muscle pain. ENDOCRINE: Denies any polyuria or polydipsia. The rest of the 14-point review of systems is negative. PHYSICAL EXAMINATION: GENERAL: The patient is alert and oriented x3, not in any acute distress. Well developed, well nourished. HEENT: Pupils are round and equally reacting to light. EOMI. No scleral icterus. No conjunctival pallor. Normocephalic, atraumatic. No pharyngeal erythema. No thyromegaly. CARDIOVASCULAR: S1 and S2 present. No murmurs, rubs, or gallops. PULMONARY: Chest is clear to auscultation, no wheezing or crackles. ABDOMEN: Soft, nontender, nondistended, normoactive bowel sounds. No palpable organomegaly. MUSCULOSKELETAL: No joint swelling or deformity. EXTREMITIES: No cyanosis, clubbing, or pedal edema. NEUROLOGICAL: Gross neurological examination did not reveal any focal deficits. SKIN: No rashes. Assessment and plan Chest pain Hyponatremia Right-sided hydronephrosis History of coronary artery disease Hypertension Hypothyroidism Diabetes mellitus Plan monitor vital signs Monitor CBC Monitor CMP Trend troponins Continue telemetry monitoring Resume home meds Consult cardiology Consult urology Past Medical History Past Medical History: Coronary Artery Disease (CAD), CVA/TIA, Diabetes Mellitus, Eye Disorder, GERD/Reflux, Hearing Disorder / Deafness, Hyperlipidemia, H ypertension, Myocardial Infarction ([place]), Osteoarthritis (OA), Thyroid Disorder Additional Past Medical History / Comment(s): EPISODES OF ANGIOEDEMA, NIDDM TYPE II, 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 , [place]-HEARING AIDS, WEAKNESS RIGHT SIDE -USES WALKER WITH WHEELS. Last Myocardial Infarction Date:: 09/2018 History of Any Multi-Drug Resistant Organisms: None Reported Past Surgical History: Back Surgery, Breast Surgery, Heart Catheterization With Stent, Hysterectomy, Orthopedic Surgery, Tubal Ligation Additional Past Surgical History / Comment(s): PCI with a total of 7 stents, low back surgery, L breast benign bx, R rotator cuff repair, R eye cataract, multiple laser eye surgeries, bilateral eye stents-R one fell out, thyroidectomy d/t nodules, temporal artery bx, cervical and lumbar injections. Past Anesthesia/Blood Transfusion Reactions: Previous Problems w/ Anesthesia, Postoperative Nausea & Vomiting (PONV) Additional Past Anesthesia/Blood Transfusion Reaction / Comment(s): hard to wake up Date of Last Stent Placement:: 10/19/18 Past Psychological History: Anxiety Additional Psychological History / Comment(s): Son Geoffrey lives with her. She is visually impaired, reads with a lighted magnifying screen. She signs her name occasionally. Her sons take her to appts. Smoking Status: Never smoker Past Alcohol Use History: None Reported Past Drug Use History: None Reported - Past Family History Mother Family Medical History: Myocardial Infarction ([place]) Additional Family Medical History / Comment(s): MOTHER OF [place] AGE 57YRS. Brother(s) Family Medical History: Myocardial Infarction ([place]) Additional Family Medical History / Comment(s): BROTHER OF A [place] AGE 60YRS. Father Family Medical History: No Reported History Additional Family Medical History / Comment(s): FATHER LIVED TO BE 90YRS OLD. Medications and Allergies Home Medications Medication Instructions Recorded Confirmed Type Vits A,C,E/Lutein/Minerals 1 tab PO HS 05/03/16 02/18/23 History [Ocuvite with Lutein Tablet] Levothyroxine Sodium [Synthroid] 88 mcg PO DAILY 05/31/17 02/18/23 History ALPRAZolam [Xanax] 0.25 mg PO DAILY PRN #30 06/05/17 02/18/23 Rx Glimepiride [Amaryl] 1 mg PO AC-BRKFST 04/28/18 02/18/23 History metFORMIN HCL [Glucophage] 500 mg PO AC-BID 04/28/18 02/18/23 History Gabapentin [Neurontin] 100 - 200 mg PO BID PRN 05/25/20 02/18/23 History Atorvastatin [Lipitor] 40 mg PO DAILY 03/26/21 02/18/23 History Aspirin EC [Ecotrin Low Dose] 81 mg PO DAILY 07/19/21 02/18/23 History Famotidine 20 mg PO BID 07/19/21 02/18/23 History Isosorbide Mononitrate ER [Imdur] 30 mg PO DAILY 07/19/21 02/18/23 History Metoprolol Tartrate [Lopressor] 50 mg PO BID 07/19/21 02/18/23 History Cholecalciferol [Vitamin D3 (25 25 mcg PO BID 08/19/22 02/18/23 History Mcg = 1000 Iu)] Sennosides [Senokot] 8.6 mg PO BID PRN #20 tab 08/24/22 02/18/23 Rx Clopidogrel [Plavix] 75 mg PO DAILY 11/09/22 02/18/23 History amLODIPine [Norvasc] 10 mg PO DAILY 30 Days #30 tab 11/12/22 02/18/23 Rx Acetaminophen-Codeine 300-30mg 1 tab PO Q6H PRN 12/19/22 02/18/23 History [Tylenol w/codeine #3] Furosemide [Lasix] 20 mg PO DAILY 02/18/23 02/18/23 History Losartan Potassium [Cozaar] 25 mg PO DAILY 02/18/23 02/18/23 History Allergies Allergy/AdvReac Type Severity Reaction Status Date / Time aspartame Allergy Severe Anaphylaxis- Verified 02/18/23 21:56 swelling throat & tongue PAPER TAPE Allergy Unknown Rash/Hives Uncoded 01/09/23 10:29 Physical Exam Vitals: Vital Signs Temp Pulse Pulse Resp BP BP Pulse Ox 02/19/23 09:04 70 02/19/23 08:00 97.3 F L 57 L 14 155/62 99 02/19/23 00:24 97.6 F 59 L 17 163/71 100 02/18/23 23:30 68 20 154/76 97 02/18/23 23:20 66 02/18/23 23:10 69 22 98 02/18/23 23:00 65 17 97 02/18/23 22:50 67 11 L 99 02/18/23 22:40 65 18 98 02/18/23 22:30 64 14 98 02/18/23 22:20 63 12 98 02/18/23 22:10 64 12 185/66 98 02/18/23 22:00 64 98 02/18/23 21:50 62 97 02/18/23 21:40 62 14 98 02/18/23 21:30 61 31 H 98 02/18/23 21:23 65 29 H 99 02/18/23 21:10 68 99 02/18/23 20:50 63 13 98 02/18/23 20:40 63 98 02/18/23 20:30 64 99 02/18/23 20:20 66 02/18/23 20:10 68 17 02/18/23 20:00 65 14 02/18/23 19:58 66 02/18/23 19:53 70 16 02/18/23 19:41 98.1 F 70 18 163/62 97 Intake and Output 02/18/23 02/19/23 02/19/23 22:59 06:59 14:59 Intake Total 118 Output Total 600 Balance -600 118 Intake: Oral 118 Output: Urine 600 Other: # Voids 1 Weight 68.039 kg 68.039 kg Results CBC & Chem 7: 02/18/23 20:20 02/18/23 20:20 Labs: Abnormal Lab Results - Last 24 Hours (Table) 02/18/23 02/18/23 02/19/23 Range/Units 20:20 21:47 09:04 Sodium 128 L (137-145) mmol/L Chloride 92 L (98-107) mmol/L BUN 21 H (7-17) mg/dL Glucose 181 H (74-99) mg/dL POC Glucose (mg/dL) 220 H (70-110) mg/dL Alkaline Phosphatase 156 H (38-126) U/L Ur Leukocyte Esterase Trace H (Negative) Urine Bacteria Rare H (None) /hpf Thrombosis Risk Factor Assmnt - Choose All That Apply Each Factor Represents 1 point: Obesity (BMI >25), Swollen legs (current) Each Risk Factor Represents 3 Points: Age 75 years or older Thrombosis Risk Factor Assessment Total Risk Factor Score: 5 Thrombosis Risk Factor Assessment Level: High Risk
[2023-02-20] MEDS: metFORMIN 500 MG TAB PO SCH ×2 (06:23→16:01)
[2023-02-20] MEDS: LEVOTHYROXINE 88 MCG TAB PO SCH (06:23)
[2023-02-20] MEDS: ATORVASTATIN 40 MG TAB PO SCH (08:41)
[2023-02-20] MEDS: FAMOTIDINE 20 MG TAB PO SCH (08:41)
[2023-02-20] MEDS: CLOPIDOGREL 75 MG TAB PO SCH (08:41)
[2023-02-20] MEDS: METOPROLOL TARTRATE 50 MG TAB PO SCH ×2 (08:41→21:15)
[2023-02-20] MEDS: ASPIRIN 81 MG PO SCH (08:41)
[2023-02-20] MEDS: LOSARTAN 50 MG TAB PO SCH (08:41)
[2023-02-20] MEDS: FUROSEMIDE 20 MG TAB PO SCH (08:41)
[2023-02-20] MEDS: ISOSORBIDE MONONITRATE ER 30 MG TAB.ER.24H PO SCH (08:41)
[2023-02-20] MEDS ORDERED: LOSARTAN 50 MG TAB PO STA (08:43)
[2023-02-20] MEDS: amLODIPine 10 MG TAB PO SCH (09:34)
--- NOTE | 2023-02-20 09:36 | P.DS ---
Providers Date of admission: 02/18/23 23:03 Expected date of discharge: 02/20/23 Attending physician: Andre Mathews MD Consults: 02/18/23 23:03 Consult Physician Routine Consulting Provider: Fermín Serrano Consult Reason/Comments: CP Do you want consulting provider notified?: Yes 02/19/23 10:10 Consult Physician Routine Consulting Provider: Rodríguez Bermeo Consult Reason/Comments: Right-sided hydronephrosis Do you want consulting provider notified?: Yes Primary care physician: Anthony Cameron Hospital Course: Discharge diagnoses; Chest pain Hyponatremia Right-sided hydronephrosis History of coronary artery disease Hypertension Hypothyroidism Diabetes mellitus Hospital course; patient is a 87-year-old lady with past medical history significant for coronary artery disease, hypertension, hypothyroidism, non insulin-dependent diabetes mellitus, CHF who brought to the ER because of chest pain. Patient stated that chest pain started 8 hours prior to coming to the ER. Chest pain was central in location, pressure-like, nonradiating, no aggravating or relieving factors associated with this chest pain. Complains associated nausea but no vomiting. Patient also complaining of right lower abdominal pain denies any urinary symptoms of increased frequency or burning micturition or urgency. Because of this chest pain, patient was evaluated in the ER Initial lab work in the ER showed WBC 7.2, hemoglobin 13, platelet count 3.8, sodium 128, potassium 4.4, chloride 92, BUN 21, creatinine 0.86, Chest x-ray done showed no acute pulmonary process CT abdominal and pelvis done showed moderate right hydronephrosis and moderate to marked hydroureter extending to the pelvic inlet, moderate-sized hiatal hernia 02/20. Patient seen and examined. Patient was seen by cardiology, they recommended increased dose of losartan to 100 mg daily, they recommended no ischemic workup at this time. urology also evaluated the patient for computed tomography scan finding of hydronephrosis, at this time urology recommended in light of normal creatinine and no symptoms it could be over distention of bladder, don't recommend any further workup. PHYSICAL EXAMINATION: GENERAL: The patient is alert and oriented x3, not in any acute distress. Well developed, well nourished. Elderly HEENT: Pupils are round and equally reacting to light. EOMI. No scleral icterus. No conjunctival pallor. Normocephalic, atraumatic. No pharyngeal erythema. No thyromegaly. CARDIOVASCULAR: S1 and S2 present. No murmurs, rubs, or gallops. PULMONARY: Chest is clear to auscultation, no wheezing or crackles. ABDOMEN: Soft, nontender, nondistended, normoactive bowel sounds. No palpable organomegaly. MUSCULOSKELETAL: No joint swelling or deformity. EXTREMITIES: No cyanosis, clubbing, or pedal edema. NEUROLOGICAL: Gross neurological examination did not reveal any focal deficits. SKIN: No rashes. Patient Condition at Discharge: Stable Plan - Discharge Summary New Discharge Prescriptions: New Losartan [Cozaar] 100 mg PO DAILY #30 tab Continue Vits A,C,E/Lutein/Minerals [Ocuvite with Lutein Tablet] 1 tab PO HS Levothyroxine Sodium [Synthroid] 88 mcg PO DAILY ALPRAZolam [Xanax] 0.25 mg PO DAILY PRN #30 PRN Reason: Anxiety metFORMIN HCL [Glucophage] 500 mg PO AC-BID Glimepiride [Amaryl] 1 mg PO AC-BRKFST Gabapentin [Neurontin] 100 - 200 mg PO BID PRN PRN Reason: NERVE PAIN Atorvastatin [Lipitor] 40 mg PO DAILY Metoprolol Tartrate [Lopressor] 50 mg PO BID Aspirin EC [Ecotrin Low Dose] 81 mg PO DAILY Cholecalciferol [Vitamin D3 (25 Mcg = 1000 Iu)] 25 mcg PO BID amLODIPine [Norvasc] 10 mg PO DAILY 30 Days #30 tab Famotidine 20 mg PO BID Isosorbide Mononitrate ER [Imdur] 30 mg PO DAILY Sennosides [Senokot] 8.6 mg PO BID PRN #20 tab PRN Reason: Constipation Clopidogrel [Plavix] 75 mg PO DAILY Acetaminophen-Codeine 300-30mg [Tylenol w/codeine #3] 1 tab PO Q6H PRN PRN Reason: Pain Furosemide [Lasix] 20 mg PO DAILY Discontinued Losartan Potassium [Cozaar] 25 mg PO DAILY Discharge Medication List Vits A,C,E/Lutein/Minerals [Ocuvite with Lutein Tablet] 1 tab PO HS 05/03/16 [ History] Levothyroxine Sodium [Synthroid] 88 mcg PO DAILY 05/31/17 [History] ALPRAZolam [Xanax] 0.25 mg PO DAILY PRN #30 06/05/17 [Rx] Glimepiride [Amaryl] 1 mg PO AC-BRKFST 04/28/18 [History] metFORMIN HCL [Glucophage] 500 mg PO AC-BID 04/28/18 [History] Gabapentin [Neurontin] 100 - 200 mg PO BID PRN 05/25/20 [History] Atorvastatin [Lipitor] 40 mg PO DAILY 03/26/21 [History] Aspirin EC [Ecotrin Low Dose] 81 mg PO DAILY 07/19/21 [History] Famotidine 20 mg PO BID 07/19/21 [History] Isosorbide Mononitrate ER [Imdur] 30 mg PO DAILY 07/19/21 [History] Metoprolol Tartrate [Lopressor] 50 mg PO BID 07/19/21 [History] Cholecalciferol [Vitamin D3 (25 Mcg = 1000 Iu)] 25 mcg PO BID 08/19/22 [History] Sennosides [Senokot] 8.6 mg PO BID PRN #20 tab 08/24/22 [Rx] Clopidogrel [Plavix] 75 mg PO DAILY 11/09/22 [History] amLODIPine [Norvasc] 10 mg PO DAILY 30 Days #30 tab 11/12/22 [Rx] Acetaminophen-Codeine 300-30mg [Tylenol w/codeine #3] 1 tab PO Q6H PRN 12/19/22 [History] Furosemide [Lasix] 20 mg PO DAILY 02/18/23 [History] Losartan [Cozaar] 100 mg PO DAILY #30 tab 02/20/23 [Rx] Follow up Appointment(s)/Referral(s): Anthony Cameron MD [Primary Care Provider] - 1-2 days Les Silva MD [STAFF PHYSICIAN] - 03/06/23 2:00 pm (Appointment will be at the [facility]) Discharge Disposition: HOME WITH HOME HEALTH SERVICES
[2023-02-20 10:31] LABS: Glucose,Whole Blood 269 mg/dL (70-110)
--- NOTE | 2023-02-20 10:48 | P.PN ---
Subjective Progress Note Date: 02/20/23 History of present illness: The patient's is an 87-year-old female with past medical history of coronary artery disease with prior stenting, hypertension, hyperlipidemia, diabetes mellitus, carotid stenosis and CVA. The patient follows in the office with Dr. MATT Silva. The patient presented to the emergency room with chest heaviness and associated shortness of breath. She states this started abruptly yesterday when she was sitting in the chair. She states she felt uncomfortable, therefore got up to walk around, when she felt as though she could not take in a deep breath. The patient states she has seen her fender mechanic apprentice approximately one month ago and she has been compliant with her medication regimen. DIAGNOSTICS: EKG shows sinus bradycardia with right bundle branch block Chest x-ray shows no acute cardiopulmonary process Computed tomography scan of the abdomen and pelvis shows moderate right hydronephrosis and moderate sized hiatal hernia labs: WBC 7.2, hemoglobin 13.0, hematocrit 37.9, platelet 320, sodium 128, potassium 4.4, BUN 21, creatinine 0.86, magnesium 1.6, AST 25, ALT 23, troponins negative 3 02/20 Patient is seen today in follow-up. Her blood pressure remains elevated despite the increase in losartan.blood pressure this morning 170/61. Heart rate is in the 50s. No repeat blood work today. PHYSICAL EXAMINATION: This is a 87-year-old female in no apparent distress at the time of my examination. HEENT: Head is atraumatic, normocephalic. Pupils are equal, round. CHEST EXAMINATION: Lungs are clear to auscultation. No chest wall tenderness is noted on palpation or with deep breathing. HEART EXAMINATION: Heart regular rate and rhythm. S1, S2 heard. Systolic murmur. No gallops or rub. EXTREMITIES: 1+ peripheral pulses. Mild left lower extremity edema and no calf tenderness noted. NEUROLOGIC EXAMINATION: Patient is awake, alert and oriented x3. FINAL ASSESSMENT AND PLAN: Chest discomfort No indication of acute coronary syndrome Hypertension, increased losartan History of hyperlipidemia History diabetes History of coronary artery disease History of carotid stenosis History of CVA PLAN: Increase losartan to 100 mg daily for blood pressure management No need for echocardiogram as well as completed back in October Once blood pressure is better controlled, outpatient follow-up with primary fender mechanic apprentice Dr. MATT Silva Nurse practitioner note has been reviewed, I agree with the documented findings and plan of care. Patient was seen and examined. Objective - Vital Signs Vital signs: Vital Signs Temp 97.4 F L 02/20/23 07:00 Pulse 57 L 02/20/23 07:00 Resp 16 02/20/23 07:00 BP 170/61 02/20/23 07:00 Pulse Ox 96 02/20/23 07:57 FiO2 Intake & Output 02/19/23 02/20/23 02/20/23 18:59 06:59 18:59 Intake Total 236 Balance 236 Intake: Oral 236 Other: # Voids 3 2 - Labs CBC & Chem 7: 02/18/23 20:20 02/18/23 20:20 Labs: Abnormal Lab Results - Last 24 Hours (Table) 02/19/23 Range/Units 09:04 POC Glucose (mg/dL) 220 H (70-110) mg/dL
[2023-02-20 11:29] LABS: Glucose,Whole Blood 266 mg/dL (70-110)
--- NOTE | 2023-02-20 11:48 | CT ---
EXAMINATION TYPE: FL UGI air w small bowel DATE OF EXAM: 02/20/2023 COMPARISON: 01/09/2023 INDICATION: Acute mental status change DLP: 1110.4 mGycm, Automated exposure control for dose reduction was used. CONTRAST: None CT of the brain is performed utilizing 3 mm thick sections through the posterior fossa and 3 mm thick sections through the remaining calvarium. Study is performed within 24 hours of arrival to the hosp [facility]. No abnormal hyperdensity is present to suggest an acute intracranial hemorrhage. No mass lesion is evident. No acute infarcts are evident. Diffuse low density is scattered through the deep white matter bilater ally. There is prominence of ventricles and sulci. Findings can be compatible with chronic appearing white matter ischemic changes and age related atrophy. Paranasal sinuses and mastoid air cells within the [id number] are clear. IMPRESSIONS: 1. Atrophy with chronic appearing periventricular white matter ischemic changes. Follow-up MRI coul d be performed as clinically indicated.
--- NOTE | 2023-02-20 11:53 | CT ---
EXAMINATION TYPE: CODE STROKE: CTA head neck DATE OF EXAM: 02/20/2023 HISTORY: AMS, CODE STROKE, HISTORY OF CVA x 4 COMPARISON: CT DLP: 435.9 mGycm. Automated Exposure Control for Dose Reduction was Utilized. TECHNIQUE: CTA scan of the neck is performed without and with IV Contrast, patient injected with 65 ml mL of Isovue 370, axial images are obtained, coronal and sagittal reformatted images are reviewed. Three-D reconstructed images are created on an independent workstation and reviewed. Source images are reviewed. FINDINGS: Carotid/Vascular Structures: There is a three-vessel arch. Common carotid arteries bifurcate into int ernal and external carotids. Some vascular calcifications at the carotid bifurcation. This is creatin g approximately 25% narrowing of the origin of the right internal carotid artery. No significant [place] w-limiting stenosis at the left internal carotid artery is evident. Internal carotid arteries are pat ent to the skull base. Vertebral arteries are codominant and patent to the skull base. Cervical of [place]: Vertebral basilar system appears normal. Posterior cerebral vasculature is unrema rkable. Internal carotid arteries bifurcate normally into A1 and M1 segments. A2 segments are normal. The anterior communicating artery is patent. Left posterior possibly right posterior indicating allyssa ry are patent. IMPRESSION: 1. No flow-limiting stenosis bilateral carotid bifurcations. Mild atheromatous plaquing is present at the carotid bifurcations. 2. Normal [place] of [place] NASCET criteria was used in interpretation of this exam?
[2023-02-20 12:02] LABS: Basophils % (A) 0 %; Eosinophils # (A) 0.3 k/uL (0-0.7); Eosinophils % (A) 4 %; HCT 42.7 % (34.0-46.0); HGB 14.4 gm/dL (11.4-16.0); Lymphocytes # (A) 1.8 k/uL (1.0-4.8); Lymphocytes % (A) 23 %; MCH 29.9 pg (25.0-35.0); MCHC 33.6 g/dL (31.0-37.0); MCV 88.9 fL (80.0-100.0); Mean Platelet Volume 8.8; Monocytes # (A) 0.5 k/uL (0-1.0); Monocytes % (A) 6 %; Neutrophils # (A) 5.2 k/uL (1.3-7.7); Neutrophils % (A) 65 %; Platelet Count 335 k/uL (150-450); RBC 4.81 m/uL (3.80-5.40); RDW 13.2 % (11.5-15.5)
[2023-02-20 12:11] LABS: ALT 22 U/L (4-34); AST 26 U/L (14-36); African American GFR (CKD) 73 (>60 ml/min/1.73 sqM); Albumin 4.5 g/dL (3.5-5.0); Alkaline Phosphatase 163 U/L (38-126); Anion Gap 12 mmol/L; Blood Urea Nitrogen 24 mg/dL (7-17); Calcium 9.1 mg/dL (8.4-10.2); Carbon Dioxide 25 mmol/L (22-30); Chloride 94 mmol/L (98-107); Glucose 258 mg/dL (74-99); INR 0.9 (<1.2); Non-African American GFR(CKD) 64 (>60 ml/min/1.73 sqM); Partial Thromboplastin Time 24.7 sec (22.0-30.0); Potassium 4.4 mmol/L (3.5-5.1); Prothrombin Time 9.9 sec (9.0-12.0); Sodium 131 mmol/L (137-145); Total Bilirubin 0.7 mg/dL (0.2-1.3); Total Protein 7.3 g/dL (6.3-8.2)
[2023-02-20] MEDS: ALPRAZolam 0.25 MG TAB PO PRN (13:05)
[2023-02-20] MEDS: Acetaminophen-Codeine 300-30mg TAB PO PRN (13:05)
--- NOTE | 2023-02-20 14:31 | P.CNNES ---
History of Present Illness Consult date: 02/20/23 Requesting physician: Saman Perez Reason for Consult: possible cva ,ams History of Present Illness: Patient is a 87-year-old right-handed female with history of previous stroke, with residual right hemiparesis, came to the hospital because of chest pain. Patient was ruled out for acute [place]. Patient was about to be discharged today, but the cardiology team increase her blood pressure pill. Apparently patient today developed episode of nonresponsiveness, after which she was noted to have weakness of the right side. This prompted neurology consultation. Stat computed tomography scan of the head was done, which revealed atrophy with chronic appearing periventricular white matter ischemic changes. Follow-up MRI could be performed. CTA of the neck and head showed no flow-limiting stenosis bilateral carotid bifurcations. Mild atheromatous plaquing is present at the carotid bifurcations. Normal picayune of Rogers. I came to see the patient immediately. Patient was moaning, groaning, IV line was being put in and patient was moaning with pain. Patient was speaking clearly. Please refer to examination below. Patient's family was present, who mentions that patient had similar episode on 02/18/2023 when she suddenly became lethargic while sitting in the chair, could hardly talk, could hardly move. When she got to the hospital, she came out of it. They were told that it was felt that a piece of plaque may have broken lose producing the symptoms. She had a similar event previously on 01/09/2023. Patient has history of stroke with residual right hemiparesis that occurred in May about 5 or 6 years ago. Patient has chronic weakness of the right hand, also drags the right leg. This is her baseline. 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 Patient claims that she has history of 4 strokes in the past, with his residual weakness on the right side. Patient states that she walks with a walker at home. On review of records, patient had an abnormal MRI brain 05/26/2020 showing 5 mm area of abnormal signal within the left high parietal cortex suspicious for a tiny area of acute ischemia. Patient had an MRI of the brain 06/01/2017 showing 9 mm area of acute ischemia within the left thalamus. On my review, the CVA reported 05/26/2020 MRI appears artifactual. Patient had undergone steroid injection in the neck in November [address] Albert. Patient was off Plavix for 7 days prior to the procedure. She has been on Plavix since then, with no further introduction of medication. Her most recent vital signs with blood pressure 154/87, pulse rate 61 temperature 98.0. Blood tests with normal CBC, PT/PTT, sodium 131 potassium 4.4, normal renal functions. Hepatic panel is normal, troponin is negative. UA negative. Patient currently on aspirin 81 mg, Plavix 75 mg and Lipitor 40 mg daily. Review of Systems Constitutional: Reports chills, Denies fever Eyes: right loss of peripheral vision (From macular degeneration), left loss of vision (Chronic from glaucoma), bilateral blurred vision, denies pain Ears: bilateral: decreased hearing (Uses hearing aids), earache Ears, nose, mouth and throat: Reports headache, Denies sore throat Cardiovascular: Reports chest pain, Reports shortness of breath Respiratory: Reports cough, Reports excessive sputum Gastrointestinal: Reports nausea, Denies abdominal pain, Denies diarrhea, Denies vomiting Musculoskeletal: Reports low back pain, Reports neck pain, Denies myalgias Integumentary: Denies pruritus, Denies rash Neurological: Reports as per HPI Psychiatric: Reports anxiety, Reports depression Endocrine: Reports fatigue, Denies weight change Hematologic/Lymphatic: Reports easy bruising, Denies easy bleeding Past Medical History Past Medical History: Coronary Artery Disease (CAD), CVA/TIA, Diabetes Mellitus, Eye Disorder, GERD/Reflux, Hearing Disorder / Deafness, Hyperlipidemia, Hypertension, Myocardial Infarction (WA), Osteoarthritis (OA), Thyroid Disorder Additional Past Medical History / Comment(s): EPISODES OF ANGIOEDEMA, NIDDM TYPE II, 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 , NEWHALEN-HEARING AIDS, WEAKNESS RIGHT SIDE -USES WALKER WITH WHEELS. Last Myocardial Infarction Date:: 09/2018 History of Any Multi-Drug Resistant Organisms: None Reported Past Surgical History: Back Surgery, Breast Surgery, Heart Catheterization With Stent, Hysterectomy, Orthopedic Surgery, Tubal Ligation Additional Past Surgical History / Comment(s): PCI with a total of 7 stents, low back surgery, L breast benign bx, R rotator cuff repair, R eye cataract, multiple laser eye surgeries, bilateral eye stents-R one fell out, thyroidectomy d/t nodules, temporal artery bx, cervical and lumbar injections. Past Anesthesia/Blood Transfusion Reactions: Previous Problems w/ Anesthesia, Postoperative Nausea & Vomiting (PONV) Additional Past Anesthesia/Blood Transfusion Reaction / Comment(s): hard to wake up Date of Last Stent Placement:: 10/19/18 Past Psychological History: Anxiety Additional Psychological History / Comment(s): Son Geoffrey lives with her. She is visually impaired, reads with a lighted magnifying screen. She signs her name occasionally. Her sons take her to [employer]. Smoking Status: Never smoker Past Alcohol Use History: None Reported Past Drug Use History: None Reported - Past Family History Mother Family Medical History: Myocardial Infarction (WA) Additional Family Medical History / Comment(s): MOTHER OF WA AGE 57YRS. Brother(s) Family Medical History: Myocardial Infarction (WA) Additional Family Medical History / Comment(s): BROTHER OF A WA AGE 60YRS. Father Family Medical History: No Reported History Additional Family Medical History / Comment(s): FATHER LIVED TO BE 90YRS OLD. Medications and Allergies Home Medications Medication Instructions Recorded Confirmed Type Vits A,C,E/Lutein/Minerals 1 tab PO HS 05/03/16 02/18/23 History [Ocuvite with Lutein Tablet] Levothyroxine Sodium [Synthroid] 88 mcg PO DAILY 05/31/17 02/18/23 History ALPRAZolam [Xanax] 0.25 mg PO DAILY PRN #30 06/05/17 02/18/23 Rx Glimepiride [Amaryl] 1 mg PO AC-BRKFST 04/28/18 02/18/23 History metFORMIN HCL [Glucophage] 500 mg PO AC-BID 04/28/18 02/18/23 History Gabapentin [Neurontin] 100 - 200 mg PO BID PRN 05/25/20 02/18/23 History Atorvastatin [Lipitor] 40 mg PO DAILY 03/26/21 02/18/23 History Aspirin EC [Ecotrin Low Dose] 81 mg PO DAILY 07/19/21 02/18/23 History Famotidine 20 mg PO BID 07/19/21 02/18/23 History Isosorbide Mononitrate ER [Imdur] 30 mg PO DAILY 07/19/21 02/18/23 History Metoprolol Tartrate [Lopressor] 50 mg PO BID 07/19/21 02/18/23 History Cholecalciferol [Vitamin D3 (25 25 mcg PO BID 08/19/22 02/18/23 History Mcg = 1000 Iu)] Sennosides [Senokot] 8.6 mg PO BID PRN #20 tab 08/24/22 02/18/23 Rx Clopidogrel [Plavix] 75 mg PO DAILY 11/09/22 02/18/23 History amLODIPine [Norvasc] 10 mg PO DAILY 30 Days #30 tab 11/12/22 02/18/23 Rx Acetaminophen-Codeine 300-30mg 1 tab PO Q6H PRN 12/19/22 02/18/23 History [Tylenol w/codeine #3] Furosemide [Lasix] 20 mg PO DAILY 02/18/23 02/18/23 History Losartan [Cozaar] 100 mg PO DAILY #30 tab 02/20/23 Rx Allergies Allergy/AdvReac Type Severity Reaction Status Date / Time aspartame Allergy Severe Anaphylaxis- Verified 02/18/23 21:56 swelling throat & tongue PAPER TAPE Allergy Unknown Rash/Hives Uncoded 01/09/23 10:29 Physical Examination - Vital Signs Vital Signs: Vital Signs Temp Pulse Resp BP BP Pulse Ox 02/20/23 10:40 57 L 20 169/69 96 02/20/23 07:57 96 02/20/23 07:00 97.4 F L 57 L 16 170/61 96 02/20/23 02:00 97.5 F L 54 L 18 125/63 97 02/19/23 19:46 97.7 F 59 L 14 122/65 95 02/19/23 15:00 97.6 F 61 14 111/66 99 02/19/23 13:34 71 119/81 95 Intake and Output 02/19/23 02/20/23 02/20/23 22:59 06:59 14:59 Intake Total 118 118 Output Total 0 Balance 118 118 Intake: Oral 118 118 Output: Urine 0 Other: # Voids 2 2 Patient is an elderly female, who is laying in the bed, in no acute distress. Patient is alert awake, moaning, groaning, as IV line was being placed. Even with examination, she moans and groans. Speech and language functions are normal. Patient can name and repeat very well. No aphasia or dysarthria. Attention, concentration and fund of knowledge is limited On cranial nerve examination, pupils are equal, round and reacting to light, patient is blind in the left eye. Patient's visual tsai appears full on the right side. Patient does have macular degeneration in the right eye as well. Extraocular muscles are intact with no nystagmus. Face is symmetric, tongue protrudes to the midline. Palatal elevation and sensation normal, hearing is severely decreased and shoulder shrug normal, facial sensation normal. On muscle strength testing, patient has right arm drift, which partly is related to right shoulder pain. Her biceps, triceps appears equal. Baker Test is very weak about 3 on the right, 5- on the left. Her strength in the lower extr emities appears also symmetric about 4+ at the hips, 5 at the ankles bilaterally. Right arm is spastic, with slight inward dystonic foot. Deep tendon reflexes are symmetric, very hypoactive and plantars are flat. Sensory to touch is decreased on the right side as compared to the left. Cerebellar function showed no ataxia for [id number] testing the left, but very shaky on the right. Tone is increased in right side of the body and bulk of muscles normal. Gait deferred.. On general examination, there is no carotid bruit or murmur, S1-S2 audible. Chest is clear on consultation. Abdomen is soft nontender. No organomegaly, bowel sounds present. Peripheral pulses are present. No edema. Results - Laboratory Findings CBC and BMP: 02/20/23 11:48 02/20/23 11:48 Abnormal Lab Findings: Abnormal Labs 02/18/23 02/18/23 02/19/23 20:20 21:47 09:04 Sodium 128 L Chloride 92 L BUN 21 H Glucose 181 H POC Glucose (mg/dL) 220 H Alkaline Phosphatase 156 H Ur Leukocyte Esterase Trace H Urine Bacteria Rare H 02/20/23 02/20/23 10:30 11:28 Sodium Chloride BUN Glucose POC Glucose (mg/dL) 269 H 266 H Alkaline Phosphatase Ur Leukocyte Esterase Urine Bacteria Assessment and Plan Assessment: * Acute episode of unresponsiveness followed by right hemiparesis. Symptoms have mostly resolved, now with residual right hemiparesis related to previous stroke that happened 6 years ago. 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 Patient after episode of unresponsiveness had right hemiparesis, but seems to have mostly resolved, with residual right hemiparesis, which is from previous stroke 6 years ago. All her symptoms have resolved. Patient not a candidate for TPA, as his symptoms have mostly resolved, and patient not a candidate for thrombectomy because of no large vessel occlusion. * Check MRI of the brain evaluate for an acute stroke * EEG rule out epileptiform activity. * Suggest event monitor rule out arrhythmia. * Cardiology also on board. * 2-D echo from 11/10/2022 showed normal left ventricular and right ventricular systolic function with EF 55-60%. Thickened mitral valve leaflets with mild to moderate MR. Aortic sclerosis with no stenosis or regurgitation. Left atrial size is normal. * CTA of the neck and head showed no flow-limiting stenosis bilateral carotid bifurcations. Mild atheromatous plaquing is present at the carotid bifurcations. Normal picayune of Rogers. * Hemoglobin A1c 7.7 on 11/10/2022, lipid panel with cholesterol 199, LDL 98, HDL 70, triglycerides 155 on 11/10/2022. * Continue Plavix 75 mg, aspirin 81 mg and Lipitor 40 mg daily. * Neurology will follow. Thank you for the consult.
--- NOTE | 2023-02-20 15:23 | P.PN ---
Subjective Progress Note Date: 02/20/23 patient is a 87-year-old lady with past medical history significant for coronary artery disease, hypertension, hypothyroidism, non insulin-dependent diabetes mellitus, CHF who brought to the ER because of chest pain. Patient stated that chest pain started 8 hours prior to coming to the ER. Chest pain was central in location, pressure-like, nonradiating, no aggravating or relieving factors associated with this chest pain. Complains associated nausea but no vomiting. Patient also complaining of right lower abdominal pain denies any urinary symptoms of increased frequency or burning micturition or urgency. Because of this chest pain, patient was evaluated in the ER Initial lab work in the ER showed WBC 7.2, hemoglobin 13, platelet count 3.8, sodium 128, potassium 4.4, chloride 92, BUN 21, creatinine 0.86, Chest x-ray done showed no acute pulmonary process CT abdominal and pelvis done showed moderate right hydronephrosis and moderate to marked hydroureter extending to the pelvic inlet, moderate-sized hiatal hernia 02/20. Patient seen and examined. Patient was seen by cardiology, they martínez mmended increased dose of losartan to 100 mg daily, they recommended no ischemic workup at this time. urology also evaluated the patient for computed tomography scan finding of hydronephrosis, at this time urology recommended in light of normal creatinine and no symptoms it could be over distention of bladder, don't recommend any further workup. Patient was later found to be less responsive, lethargic. Patient was weak on her right side. Stat CT head and CT head and neck were ordered and patient was transferred to stepdown REVIEW OF SYSTEMS: Recent cardiac in because of patient's current mental status PHYSICAL EXAMINATION: GENERAL: The patient is alert but lethargic, not in any acute distress. Well developed, well nourished. HEENT: Pupils are round and equally reacting to light. EOMI. No scleral icterus. No conjunctival pallor. Normocephalic, atraumatic. No pharyngeal erythema. No thyromegaly. CARDIOVASCULAR: S1 and S2 present. No murmurs, rubs, or gallops. PULMONARY: Chest is clear to auscultation, no wheezing or crackles. ABDOMEN: Soft, nontender, nondistended, normoactive bowel sounds. No palpable organomegaly. MUSCULOSKELETAL: No joint swelling or deformity. EXTREMITIES: No cyanosis, clubbing, or pedal edema. NEUROLOGICAL: Strength 5 out of 5 in the left side but one by 5 in right side. SKIN: No rashes. Assessment and plan Acute episode of unresponsiveness followed by right hemiparesis. Symptoms have mostly resolved, now with residual right hemiparesis related to previous stroke that happened 6 years ago. Chest pain Hyponatremia Right-sided hydronephrosis Hypertension Diabetes Coronary artery disease History of CVA with residual right hemiparesis Blindness left eye from macular degeneration History of back surgery History of right rotator cuff repair Fall precautions Delirium precautions Continue telemetry monitoring Stat CT head Stat CTA head and neck MRI brain ordered EEG ordered Neurology consulted Continue rest of treatment for now Objective - Vital Signs Vital signs: Vital Signs Temp 98.0 F 02/20/23 12:00 Pulse 61 02/20/23 12:00 Resp 20 02/20/23 12:00 BP 154/87 02/20/23 12:00 Pulse Ox 96 02/20/23 10:40 FiO2 Intake & Output 02/19/23 02/20/23 02/20/23 18:59 06:59 18:59 Intake Total 236 118 Output Total 0 Balance 236 118 Intake: Oral 236 118 Output: Urine 0 Other: # Voids 3 2 - Labs CBC & Chem 7: 02/20/23 11:48 02/20/23 11:48 Labs: Abnormal Lab Results - Last 24 Hours (Table) 02/20/23 02/20/23 02/20/23 Range/Units 10:30 11:28 11:48 Sodium 131 L (137-145) mmol/L Chloride 94 L (98-107) mmol/L BUN 24 H (7-17) mg/dL Glucose 258 H (74-99) mg/dL POC Glucose (mg/dL) 269 H 266 H (70-110) mg/dL Alkaline Phosphatase 163 H (38-126) U/L
[2023-02-21] MEDS: Acetaminophen-Codeine 300-30mg TAB PO PRN ×2 (05:14→21:11)
[2023-02-21] MEDS: metFORMIN 500 MG TAB PO SCH (06:52)
[2023-02-21] MEDS: LEVOTHYROXINE 88 MCG TAB PO SCH (06:52)
[2023-02-21] MEDS: ATORVASTATIN 40 MG TAB PO SCH (08:08)
[2023-02-21] MEDS: amLODIPine 10 MG TAB PO SCH (08:08)
[2023-02-21] MEDS: CLOPIDOGREL 75 MG TAB PO SCH (08:08)
[2023-02-21] MEDS: LOSARTAN 50 MG TAB PO SCH (08:08)
[2023-02-21] MEDS: ASPIRIN 81 MG PO SCH (08:08)
[2023-02-21] MEDS: FAMOTIDINE 20 MG TAB PO SCH (08:08)
[2023-02-21] MEDS: METOPROLOL TARTRATE 50 MG TAB PO SCH ×2 (08:08→21:09)
[2023-02-21] MEDS: FUROSEMIDE 20 MG TAB PO SCH (08:08)
[2023-02-21] MEDS: ISOSORBIDE MONONITRATE ER 30 MG TAB.ER.24H PO SCH (08:08)
--- NOTE | 2023-02-21 12:59 | PN ---
PROGRESS NOTE DATE OF SERVICE: 02/21/2023 HISTORY OF PRESENT ILLNESS: Praveena is an 87-year-old lady who has a prior history of hypertension, dyslipidemia, coronary artery disease, carotid stenosis, and CVA. She presented to the emergency room with chest heaviness and shortness of breath. She ruled out for myocardial infarction and was advised medical therapy. She was transferred to ICU yesterday following an episode of weakness and slurred speech, has cold stroke. Her symptoms have mostly improved other than the residual right-sided deficit that she had from prior strokes. She does not have chest pain or difficulty in breathing at the moment. OBJECTIVE: VITAL SIGNS: On exam, afebrile. Vital signs stable. CHEST: Exam reveals good air entry bilaterally. HEART: Exam reveals first and second heart sounds, ejection systolic murmur in the aortic area. ABDOMEN: Soft. EXTREMITIES: Exam of extremities did not reveal any edema. Peripheral pulses are felt. LABORATORY DATA: Labs show that hemoglobin is 14.4, potassium is 4.4, creatinine is 0.8. The patient is on, 1. Norvasc 10 daily. 2. Aspirin. 3. Lipitor 40 daily. 4. Plavix. 5. Lasix 20 daily. 6. Imdur 30 daily. 7. Synthroid. 8. Cozaar. 9. Glucophage. 10.Lopressor. 11.Narcan. ASSESSMENT AND PLAN: 1. Chest pain, myocardial infarction ruled out. 2. History of recurrent CVA. 3. Hypertension. 4. Dyslipidemia. PLAN: The patient will continue current medications. She may be transferred out of ICU. MMODL / IJN: [id number] /
--- NOTE | 2023-02-21 13:02 | MR ---
EXAMINATION TYPE: MR brain wo con DATE OF EXAM: 02/21/2023 12:47 PM COMPARISON: 02/20/2023e. CLINICAL INDICATION:Female, 87 years old with history of Stroke; AMS. TECHNIQUE: Multi planar, multi sequence imaging was performed through the brain including: T1, T2, In version recovery, Diffusion weighted imaging, and gradient echo imaging. No gadolinium was given. FINDINGS: Small focus of restricted diffusion compatible with CVA involving the parietal lobe cortex series 303 image 24 diffusion-weighted imaging. Generalized atrophy changes with proportional dilatio n of ventricular system. Scattered foci of high T2 signal intensity are seen within the periventricul ar white matter. Midline structures show no abnormality. The susceptibility weighted images do not re veal any evidence for micro-hemorrhage. The bone marrow signal is within normal limits. Paranasal sinuses and mastoid air cells: Mild scattered paranasal sinus disease. Visualized orbits: Right aphakia. IMPRESSION: 1. Small focus of acute/subacute CVA right parietal lobe cortex. 2. Nonspecific white matter changes, likely secondary to small vessel ischemic disease.
--- NOTE | 2023-02-21 13:05 | EEG ---
ELECTROENCEPHALOGRAM REPORT PREAMBLE: This is an 87-year-old female with episode of unresponsiveness with right-sided weakness. Rule out any seizure activity. EEG FINDINGS: This is a 21-channel digital EEG recorded with video component, utilizing 10/20 international system with referential and bipolar montages. Background consists of well developed, well regulated, predominantly moderate amplitude 6-7 hertz theta activity seen in bihemispheric region. Background is posterior dominant and seems to be not clearly responding to eye opening or closing. Photic driving response was not seen. Intermittent bitemporal dysrhythmic delta slowing was seen, left more than right. Some left temporal sharply contoured waves were seen. Different stages of sleep were not seen. No definitive focal or generalized epileptiform activity was seen. EKG channel showed no obvious arrhythmia. IMPRESSION: This is an abnormal EEG due to: 1. Background slowing, mild degree, suggestive of encephalopathy. 2. Superimposed intermittent bitemporal dysrhythmic delta slowing, left more than right, suggestive of focal cortical neuronal dysfunction, and may suggest underlying structural abnormality. 3. Some occasional left temporal sharply contoured waves were seen, which did not appear clearly epileptiform. If your suspicion for seizures is high, suggest prolonged EEG for further evaluation. MMODL / IJN: [id number] / [facility] SYSTEMPradeep
--- NOTE | 2023-02-21 15:17 | P.PN ---
Subjective Progress Note Date: 02/21/23 patient is a 87-year-old lady with past medical history significant for coronary artery disease, hypertension, hypothyroidism, non insulin-dependent diabetes mellitus, CHF who brought to the ER because of chest pain. Patient stated that chest pain started 8 hours prior to coming to the ER. Chest pain was central in location, pressure-like, nonradiating, no aggravating or relieving factors associated with this chest pain. Complains associated nausea but no vomiting. Patient also complaining of right lower abdominal pain denies any urinary symptoms of increased frequency or burning micturition or urgency. Because of this chest pain, patient was evaluated in the ER Initial lab work in the ER showed WBC 7.2, hemoglobin 13, platelet count 3.8, sodium 128, potassium 4.4, chloride 92, BUN 21, creatinine 0.86, Chest x-ray done showed no acute pulmonary process CT abdominal and pelvis done showed moderate right hydronephrosis and moderate to marked hydroureter extending to the pelvic inlet, moderate-sized hiatal hernia 02/20. Patient seen and examined. Patient was seen by cardiology, they martínez mmended increased dose of losartan to 100 mg daily, they recommended no ischemic workup at this time. urology also evaluated the patient for computed tomography scan finding of hydronephrosis, at this time urology recommended in light of normal creatinine and no symptoms it could be over distention of bladder, don't recommend any further workup. Patient was later found to be less responsive, lethargic. Patient was weak on her right side. Stat CT head and CT head and neck were ordered and patient was transferred to stepdown 02/21. Patient seen and examined. CT brain done on 02/20 showed atrophy with chronic appearing periventricular white matter ischemic changes. CTA negative for no flow-limiting stenosis bilateral carotid bifurcations. According to family, patient is doing much better REVIEW OF SYSTEMS: Denies any chest pain. Denies any nausea or vomiting. Denies any urinary retention PHYSICAL EXAMINATION: GENERAL: The patient is alert but lethargic, not in any acute distress. Well developed, well nourished. HEENT: Pupils are round and equally reacting to light. EOMI. No scleral icterus. No conjunctival pallor. Normocephalic, atraumatic. No pharyngeal erythema. No thyromegaly. CARDIOVASCULAR: S1 and S2 present. No murmurs, rubs, or gallops. PULMONARY: Chest is clear to auscultation, no wheezing or crackles. ABDOMEN: Soft, nontender, nondistended, normoactive bowel sounds. No palpable organomegaly. MUSCULOSKELETAL: No joint swelling or deformity. EXTREMITIES: No cyanosis, clubbing, or pedal edema. NEUROLOGICAL: Strength 5 out of 5 in the left side,3by 5 in right side. No facial droop. SKIN: No rashes. Assessment and plan Acute episode of unresponsiveness followed by right hemiparesis. Symptoms have mostly resolved, now with residual right hemiparesis related to previous stroke that happened 6 years ago. 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 Continue Lipitor Continue Lasix Continue Synthroid Continue losartan MRI brain ordered EEG ordered Neurology consulted Continue rest of treatment for now Objective - Vital Signs Vital signs: Vital Signs Temp 97.9 F 02/21/23 08:00 Pulse 64 02/21/23 08:00 Resp 12 02/21/23 08:00 BP 196/75 02/21/23 08:00 Pulse Ox 95 02/21/23 08:00 FiO2 Intake & Output 02/20/23 02/21/23 02/21/23 18:59 06:59 18:59 Intake Total 118 120 Output Total 600 600 200 Balance -482 -600 -80 Weight 74.2 kg Intake: Oral 118 120 Output: Urine 600 600 200 - Labs CBC & Chem 7: 02/20/23 11:48 02/20/23 11:48 Labs: Abnormal Lab Results - Last 24 Hours (Table) 02/20/23 02/20/23 02/20/23 Range/Units 10:30 11:28 11:48 Sodium 131 L (137-145) mmol/L Chloride 94 L (98-107) mmol/L BUN 24 H (7-17) mg/dL Glucose 258 H (74-99) mg/dL POC Glucose (mg/dL) 269 H 266 H (70-110) mg/dL Alkaline Phosphatase 163 H (38-126) U/L
[2023-02-21] MEDS ORDERED: DEXTROSE 50% SYRINGE 50 ML IVP PRN ×2 (16:08)
[2023-02-21] MEDS: INSULIN ASPART (NovoLOG) 100 UNIT/ML VIAL SQ SCH ×2 (16:19→21:05)
[2023-02-21 16:20] LABS: Glucose,Whole Blood 267 mg/dL (70-110)
[2023-02-21 21:05] LABS: Glucose,Whole Blood 148 mg/dL (70-110)
[2023-02-21] MEDS: DOCUSATE 100 MG CAP PO SCH (21:09)
--- NOTE | 2023-02-21 23:21 | P.PN ---
Subjective Progress Note Date: 02/21/23 Patient was seen for a follow-up. Patient's son was also present today. No new concerns. Patient is laying comfortably in the bed. Patient is back to baseline. Her mentation is perfectly normal. No further syncopal spells. Objective - Vital Signs Vital signs: Vital Signs Temp 98 F 02/21/23 16:00 Pulse 54 L 02/21/23 16:00 Resp 16 02/21/23 16:00 BP 120/53 02/21/23 16:00 Pulse Ox 98 02/21/23 16:00 FiO2 Intake & Output 02/20/23 02/21/23 02/21/23 18:59 06:59 18:59 Intake Total 118 120 Output Total 600 600 850 Balance -932 600 730 Weight 74.2 kg Intake: Oral 118 120 Output: Urine 600 600 850 - Exam Patient holding fork with his right hand, eating. Speech and language functions are perfectly normal. She is back to baseline. - Labs CBC & Chem 7: 02/20/23 11:48 02/20/23 11:48 Labs: Abnormal Lab Results - Last 24 Hours (Table) 02/21/23 Range/Units 16:18 POC Glucose (mg/dL) 267 H (70-110) mg/dL Assessment and Plan Assessment: * Acute episode of unresponsiveness followed by right hemiparesis. Symptoms have completely resolved, now with residual right hemiparesis related to previous stroke that happened 6 years ago. * MRI brain revealed small focus of acute/subacute CVA right parietal lobe co rtex. 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 Patient after episode of unresponsiveness had right hemiparesis, but seems to have mostly resolved, with residual right hemiparesis, which is from previous stroke 6 years ago. All her symptoms have resolved. Patient not a candidate for TPA, as his symptoms have mostly resolved, and patient not a candidate for thrombectomy because of no large vessel occlusion. * MRI of the brain revealed small focus of acute/subacute CVA right parietal lobe cortex. I personally reviewed MRI, I agree with the findings. Apparently patient had worsening of her baseline hemiparesis on the ipsilateral side of this stroke, therefore uncertain if symptomatic. * Patient has multiple strokes in the past. She states that she had stroke in the left eye, then involve the right arm, then the left arm and now this being the fourth spell. We will consult cardiology for JAZZY rule out embolic source. * Consider 30 day event monitoring to rule out paroxysmal atrial fibrillation. * EEG was performed, which was abnormal due to mild background slowing consi stent with encephalopathy. Superimposed intermittent bitemporal dysrhythmic delta slowing, left more than right, suggestive of focal cortical neuronal dysfunction. Some occasional left temporal sharply contoured waves were seen which did not appear clearly epileptiform. If your suspicion for seizures is high, suggest prolonged EEG for further evaluation. * We will perform prolonged, 1 hour EEG in the morning. * 2-D echo from 11/10/2022 showed normal left ventricular and right ventricular systolic function with EF 55-60%. Thickened mitral valve leaflets with mild to moderate MR. Aortic sclerosis with no stenosis or regurgitation. Left atrial size is normal. * CTA of the neck and head showed no flow-limiting stenosis bilateral carotid bifurcations. Mild atheromatous plaquing is present at the carotid bifurcations. Normal [place]. * Hemoglobin A1c 7.7 on 11/10/2022, lipid panel with cholesterol 199, LDL 98, HDL 70, triglycerides 155 on 11/10/2022. * Continue Plavix 75 mg, aspirin 81 mg and Lipitor 40 mg daily. * Dr. Edwin Gardner covering neurology service tomorrow on Monday. I will resume on .
[2023-02-22] MEDS ORDERED: NITROGLYCERIN OINT 1 INCH/GM PACKET TOPICAL STA (05:05)
[2023-02-22] MEDS: LOSARTAN 50 MG TAB PO SCH (05:20)
[2023-02-22 06:31] LABS: Glucose,Whole Blood 218 mg/dL (70-110)
[2023-02-22] MEDS: LEVOTHYROXINE 88 MCG TAB PO SCH (06:34)
[2023-02-22] MEDS: FAMOTIDINE 20 MG TAB PO SCH (08:54)
[2023-02-22] MEDS: METOPROLOL TARTRATE 50 MG TAB PO SCH ×2 (08:54→20:57)
[2023-02-22] MEDS: ISOSORBIDE MONONITRATE ER 30 MG TAB.ER.24H PO SCH (08:54)
[2023-02-22] MEDS: ASPIRIN 81 MG PO SCH (08:54)
[2023-02-22] MEDS: ATORVASTATIN 40 MG TAB PO SCH (08:54)
[2023-02-22] MEDS: CLOPIDOGREL 75 MG TAB PO SCH (08:54)
[2023-02-22] MEDS: amLODIPine 10 MG TAB PO SCH (08:54)
--- NOTE | 2023-02-22 09:26 | PN ---
PROGRESS NOTE SUBJECTIVE: Praveena is an 87-year-old lady who is admitted to hospital with chest heaviness and shortness of breath, but also had slurred speech and weakness, and a code stroke was called. Neurology is involved in the case. Neurologist felt that there were worsening neuro deficits and requested us to perform a JAZZY on her to rule out cardiac source of thromboembolic phenomenon. The patient also underwent an EEG. This morning, she appears comfortable at rest and is free of symptoms. OBJECTIVE: VITAL SIGNS: Blood pressure is elevated at 197/76. CHEST: Good air entry bilaterally. HEART: First and second heart sounds. No gallop. EXTREMITIES: Did not reveal any edema. Peripheral pulses are felt. ASSESSMENT AND PLAN: Cerebrovascular accident, rule out cardiac source of thromboembolic phenomenon. The patient, I think, is going to have an EEG and then we will perform a JAZZY on her later today. MMCHAPINCITO / CHULA: [id number] /
[2023-02-22] MEDS ORDERED: BENZOCAINE SPRAY 1 CAN MUCOUS MEM ONE (11:50)
[2023-02-22] MEDS ORDERED: fentaNYL (PF) 50 MCG/ML 2 ML AMP IV ONE (11:50)
[2023-02-22] MEDS ORDERED: MIDAZOLAM 2 MG/2 ML VIAL IV ONE (11:50)
[2023-02-22] MEDS ORDERED: IV FLUID CONTINUATION 1,000 ML IV ONE (11:50)
[2023-02-22] MEDS: INSULIN ASPART (NovoLOG) 100 UNIT/ML VIAL SQ SCH ×4 (12:17→21:30)
[2023-02-22] MEDS: DOCUSATE 100 MG CAP PO SCH ×2 (12:17→20:56)
[2023-02-22 13:54] LABS: Glucose,Whole Blood 201 mg/dL (70-110)
--- NOTE | 2023-02-22 15:17 | P.PN ---
Subjective Progress Note Date: 02/22/23 I'm seeing the patient for the first time during this hospital visit. Please refer to Dr. Lucas's note for further details. It seems the patient had an episode of unresponsiveness followed by right hemiparesis and her symptoms resolved and unknown exact etiology. She has prolonged EEG that was completed today and pending read. Objective - Vital Signs Vital signs: Vital Signs Temp 97.8 F 02/22/23 08:30 Pulse 64 02/22/23 12:00 Resp 16 02/22/23 12:00 BP 131/45 02/22/23 12:00 Pulse Ox 93 L 02/22/23 12:00 FiO2 Intake & Output 02/21/23 02/22/23 02/22/23 18:59 06:59 18:59 Intake Total 120 540 50 Output Total 850 900 Balance -730 -360 50 Weight 69.7 kg Intake: IV 50 Oral 120 540 Output: Urine 850 900 Other: Voiding Method Bedside Commode Bedside Commode - Exam Neuro: Limited because of the patient cooperation. Patient is awake alert oriented to self, place and time. She is very slow responding. She is following few simple commands. Language is limited. Visual tsai is she is legally blind on the left eye and she has a vision defect over the right eye due to macular degeneration so very hard that assessm ent. No facial droop. She is extremely hard of hearing. The strength is hard to assess since the patient felt cold and the was controlled and now warm blankets and did not want to cooperate for this examination. - Labs CBC & Chem 7: 02/20/23 11:48 02/20/23 11:48 Labs: Abnormal Lab Results - Last 24 Hours (Table) 02/21/23 02/21/23 02/22/23 Range/Units 16:18 21:04 06:30 POC Glucose (mg/dL) 267 H 148 H 218 H (70-110) mg/dL 02/22/23 Range/Units 13:52 POC Glucose (mg/dL) 201 H (70-110) mg/dL Assessment and Plan Assessment: * Acute episode of unresponsiveness followed by right hemiparesis. Symptoms have completely resolved, now with residual right hemiparesis related to previous stroke that happened 6 years ago. * MRI brain revealed small focus of acute/subacute CVA right parietal lobe cortex. 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 Patient after episode of unresponsiveness had right hemiparesis, but seems to have mostly resolved, with residual right hemiparesis, which is from previous stroke 6 years ago. All her symptoms have resolved. Patient was not a candidate for TPA, as his symptoms have mostly resolved, and patient not a candidate for thrombectomy because of no large vessel occlusion. * MRI of the brain revealed small focus of acute/subacute CVA right parietal lobe cortex. Dr. Lucas agree with the findings. Apparently patient had worsening of her baseline hemiparesis on the ipsilateral side of this stroke, therefore uncertain if symptomatic. * Patient has multiple strokes in the past. She states that she had stroke in the left eye, then involve the right arm, then the left arm and now this being the fourth spell. We will consult cardiology for JAZZY rule out embolic source. * Consider 30 day event monitoring to rule out paroxysmal atrial fibrillation. * EEG was performed, which was abnormal due to mild background slowing consistent with encephalopathy. Superimposed intermittent bitemporal dysrhythmic delta slowing, left more than right, suggestive of focal cortical neuronal dysfunction. Some occasional left temporal sharply contoured waves were seen which did not appear clearly epileptiform. If your suspicion for seizures is high, suggest prolonged EEG for further evaluation. * She had 1 hour EEG in the morning today and pending read. * 2-D echo from 11/10/2022 showed normal left ventricular and right ventricular systolic function with EF 55-60%. Thickened mitral valve leaflets with mild to moderate MR. Aortic sclerosis with no stenosis or regurgitation. Left atrial size is normal. * CTA of the neck and head showed no flow-limiting stenosis bilateral carotid bifurcations. Mild atheromatous plaquing is present at the carotid bifurcations. Normal [place]. * Hemoglobin A1c 7.7 on 11/10/2022, lipid panel with cholesterol 199, LDL 98, HDL 70, triglycerides 155 on 11/10/2022. * On Plavix 75 mg, aspirin 81 mg and Lipitor 40 mg daily. UPDATE: Was notified that prolonged EEG shows occasional to frequent left frontotemporal theta slow. No seizure and no epileptiform discharges. The plan is discussed with her ICU nurse. Dr. Lucas will resume neurology service tomorrow A.M. Time with Patient: Less than 30
[2023-02-22] MEDS: FUROSEMIDE 20 MG TAB PO SCH (15:31)
[2023-02-22 16:08] LABS: Glucose,Whole Blood 205 mg/dL (70-110)
[2023-02-22 18:54] LABS: Glucose,Whole Blood 378 mg/dL (70-110)
[2023-02-22] MEDS: Acetaminophen-Codeine 300-30mg TAB PO PRN (20:56)
[2023-02-22] MEDS: ALPRAZolam 0.25 MG TAB PO PRN (20:57)
[2023-02-22 21:01] LABS: Glucose,Whole Blood 189 mg/dL (70-110)
--- NOTE | 2023-02-22 21:56 | EEG ---
ELECTROENCEPHALOGRAM REPORT ELECTROENCEPHALOGRAM (EEG) REPORT: TECHNIQUE: A routine 18-channel EEG was performed with video using the 10/20 international lead placement system. HISTORY: The patient was admitted to the hospital with chest pain. When she was ready to be discharged, she had an unresponsive episode. OTHER MEDICAL HISTORY: Includes diabetes, hearing loss, hyperlipidemia. CURRENT MEDICATIONS: 1. Tylenol. 2. Xanax. 3. Norvasc. 4. Lipitor. 5. Aspirin. 6. Plavix. 7. Colace. 8. Pepcid. 9. Lasix. 10.Insulin. 11.Imdur. 12.Synthroid. 13.Cozaar. 14.Lopressor. STUDY DURATION: 91 minutes. FINDINGS: BACKGROUND: The background activity consists of 7 to 8 hertz rhythmic waveforms symmetric through both posterior quadrants. ACTIVATION: Hyperventilation: Not performed. Photic stimulation: Mild symmetric driving seen. Sleep: Drowsy. ABNORMALITIES: Occasional to frequent focal left frontotemporal theta range slowing was seen. IMPRESSION: Mildly abnormal EEG. No seizures were recorded. No epileptiform activity was present. The occasional focal left frontotemporal theta range slowing mentioned above is not epileptiform in nature. These findings indicate mild focal cerebral dysfunction involving the corresponding region. Please note that background frequencies did not exceed 8 hertz; however, given the patient's age, this can be considered within normal limits. These findings were called to the consulting neurologist at 4:14 p.m. on 02/22/2023. MMLIYAL / JULIANN: [id number] /
--- NOTE | 2023-02-22 23:39 | ECHOT ---
TRANSESOPHAGEAL ECHOCARDIOGRAM INDICATION: CVA, rule out cardiac source of thromboembolic phenomenon. This is an 87-year-old lady who is admitted to hospital with chest discomfort, ruled out for myocardial infarction, but had an episode of sudden onset focal neurological deficits, was evaluated by a neurologist, who in turn requested Cardiology to perform a transesophageal echo. PROCEDURE NOTE: After obtaining informed consent, transesophageal echocardiogram was performed in left lateral position using an Omniplane probe. Local and IV sedation were obtained using Xylocaine spray, 2 mg of Versed and 25 mcg of fentanyl. The patient tolerated the procedure well without any obvious immediate complications. FINDINGS: 1. There is no intracardiac thrombus within the left atrial appendage, left atrium, right atrium, or right ventricle. 2. There is no evidence of [id number] shunt by color-flow Doppler or [id number] shunt by agitated saline contrast study. 3. Mitral valve shows moderate central mitral regurgitation. 4. Left atrium appears enlarged. 5. Left ventricle has normal size and systolic function. 6. Aortic root appears normal. 7. Right atrium and right ventricle seen within normal limits. 8. Aortic valve is a 3-leaflet valve. There is no evidence of aortic stenosis or regurgitation. 9. Aorta shows mild to moderate atherosclerotic changes. CONCLUSIONS: 1. No intracardiac thrombus. 2. Normal LV function. 3. No evidence of shunting across the interatrial septum. This transesophageal echo did not reveal any evidence of cardiac source for thromboembolic phenomenon. MMODL / IJN: [id number] /
[2023-02-23] MEDS ORDERED: BENZOCAINE/MENTHOL LOZENG 1 EACH LOZENGE MUCOUS MEM PRN (04:32)
--- NOTE | 2023-02-23 04:57 | P.PN ---
Subjective Progress Note Date: 02/22/23 patient is a 87-year-old lady with past medical history significant for coronary artery disease, hypertension, hypothyroidism, non insulin-dependent diabetes mellitus, CHF who brought to the ER because of chest pain. Patient stated that chest pain started 8 hours prior to coming to the ER. Chest pain was central in location, pressure-like, nonradiating, no aggravating or relieving factors associated with this chest pain. Complains associated nausea but no vomiting. Patient also complaining of right lower abdominal pain denies any urinary symptoms of increased frequency or burning micturition or urgency. Because of this chest pain, patient was evaluated in the ER Initial lab work in the ER showed WBC 7.2, hemoglobin 13, platelet count 3.8, sodium 128, potassium 4.4, chloride 92, BUN 21, creatinine 0.86, Chest x-ray done showed no acute pulmonary process CT abdominal and pelvis done showed moderate right hydronephrosis and moderate to marked hydroureter extending to the pelvic inlet, moderate-sized hiatal hernia 02/20. Patient seen and examined. Patient was seen by cardiology, they r ecommended increased dose of losartan to 100 mg daily, they recommended no ischemic workup at this time. urology also evaluated the patient for computed tomography scan finding of hydronephrosis, at this time urology recommended in light of normal creatinine and no symptoms it could be over distention of bladder, don't recommend any further workup. Patient was later found to be less responsive, lethargic. Patient was weak on her right side. Stat CT head and CT head and neck were ordered and patient was transferred to stepdown 02/21. Patient seen and examined. CT brain done on 02/20 showed atrophy with chronic appearing periventricular white matter ischemic changes. CTA negative for no flow-limiting stenosis bilateral carotid bifurcations. According to family, patient is doing much better 02/22/2023 Patient is seen and evaluated and follow-up continues to be in the ICU with neurology with neurology and cardiology following and plan is to undergo JAZZY along with EEG which is pending at this time. Blood sugars have been elevated and will continue to monitor closely with Accu-Cheks before meals and at bedtime and will add long-acting as needed. Patient is currently baseline with no focal deficits noted at this time. REVIEW OF SYSTEMS: Denies any chest pain. Denies shortness of breath Denies any nausea or vomiting. Denies any urinary retention PHYSICAL EXAMINATION: GENERAL: The patient is alert, awake, not in any acute distress. Well developed, well nourished. Obese HEENT: Pupils are round and equally reacting to light. EOMI. No scleral icterus. No conjunctival pallor. Normocephalic, atraumatic. No pharyngeal erythema. No thyromegaly. CARDIOVASCULAR: S1 and S2 muffled PULMONARY: Chest is clear to auscultation, no wheezing or crackles. ABDOMEN: Soft, nontender, nondistended, normoactive bowel sounds. No palpable organomegaly. MUSCULOSKELETAL: No joint swelling or deformity. EXTREMITIES: No cyanosis, clubbing, or pedal edema. NEUROLOGICAL: Strength 5 out of 5 in the left side,4by 5 in right side. No facial droop. SKIN: No rashes. Assessment: Acute episode of unresponsiveness followed by right hemiparesis. 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 The impression and plan of care has been dictated by Kesha Velásquez, Nurse Practitioner as directed. Dr. Marquez MD I have performed a history and examination and MDM of this patient, discussed the same with the dictator, and agree with the dictator's assessment and plan as written ,documented as a scribe. Based on total visit time, I have performed more than 50% of the visit. Objective - Vital Signs Vital signs: Vital Signs Temp 97.6 F 02/22/23 04:00 Pulse 57 L 02/22/23 04:00 Resp 17 02/22/23 04:00 BP 197/76 02/22/23 04:53 Pulse Ox 98 02/22/23 04:00 FiO2 Intake & Output 02/21/23 02/22/23 02/22/23 18:59 06:59 18:59 Intake Total 120 540 Output Total 850 900 Balance -730 -360 Weight 69.7 kg Intake: Oral 120 540 Output: Urine 850 900 Other: Voiding Method Bedside Commode Bedside Commode - Labs CBC & Chem 7: 02/20/23 11:48 02/20/23 11:48 Labs: Abnormal Lab Results - Last 24 Hours (Table) 02/21/23 02/21/23 02/22/23 Range/Units 16:18 21:04 06:30 POC Glucose (mg/dL) 267 H 148 H 218 H (70-110) mg/dL
[2023-02-23 06:36] LABS: Basophils % (A) 1 %; Eosinophils # (A) 0.2 k/uL (0-0.7); Eosinophils % (A) 4 %; HCT 40.1 % (34.0-46.0); HGB 13.3 gm/dL (11.4-16.0); Lymphocytes # (A) 2.2 k/uL (1.0-4.8); Lymphocytes % (A) 35 %; MCH 29.8 pg (25.0-35.0); MCHC 33.2 g/dL (31.0-37.0); MCV 89.9 fL (80.0-100.0); Mean Platelet Volume 8.1; Monocytes # (A) 0.5 k/uL (0-1.0); Monocytes % (A) 8 %; Neutrophils # (A) 3.2 k/uL (1.3-7.7); Neutrophils % (A) 51 %; Platelet Count 301 k/uL (150-450); RBC 4.46 m/uL (3.80-5.40); WBC 6.3 k/uL (3.8-10.6)
[2023-02-23 07:00] LABS: African American GFR (CKD) 75 (>60 ml/min/1.73 sqM); Anion Gap 9 mmol/L; Blood Urea Nitrogen 19 mg/dL (7-17); Calcium 8.7 mg/dL (8.4-10.2); Carbon Dioxide 26 mmol/L (22-30); Chloride 98 mmol/L (98-107); Glucose 153 mg/dL (74-99); Non-African American GFR(CKD) 65 (>60 ml/min/1.73 sqM); Potassium 4.7 mmol/L (3.5-5.1); Sodium 133 mmol/L (137-145)
[2023-02-23 07:14] LABS: Glucose,Whole Blood 194 mg/dL (70-110)
[2023-02-23] MEDS: LEVOTHYROXINE 88 MCG TAB PO SCH (07:14)
[2023-02-23] MEDS: INSULIN ASPART (NovoLOG) 100 UNIT/ML VIAL SQ SCH ×4 (07:14→20:43)
[2023-02-23] MEDS: ATORVASTATIN 40 MG TAB PO SCH (09:38)
[2023-02-23] MEDS: DOCUSATE 100 MG CAP PO SCH ×2 (09:38→20:43)
[2023-02-23] MEDS: ASPIRIN 81 MG PO SCH (09:38)
[2023-02-23] MEDS: FAMOTIDINE 20 MG TAB PO SCH (09:38)
[2023-02-23] MEDS: LOSARTAN 50 MG TAB PO SCH (09:41)
[2023-02-23] MEDS: ISOSORBIDE MONONITRATE ER 30 MG TAB.ER.24H PO SCH (09:41)
[2023-02-23] MEDS: amLODIPine 10 MG TAB PO SCH (09:41)
[2023-02-23] MEDS: CLOPIDOGREL 75 MG TAB PO SCH (09:41)
[2023-02-23] MEDS: METOPROLOL TARTRATE 50 MG TAB PO SCH ×2 (09:41→20:43)
[2023-02-23] MEDS: FUROSEMIDE 20 MG TAB PO SCH (09:41)
[2023-02-23 10:23] VITALS: BMI 31.0
[2023-02-23 11:45] LABS: Glucose,Whole Blood 219 mg/dL (70-110)
[2023-02-23] MEDS: GLIMEPIRIDE 1 MG TAB PO SCH (13:36)
--- NOTE | 2023-02-23 14:09 | PN ---
PROGRESS NOTE HISTORY OF PRESENT ILLNESS: Praveena is admitted to hospital with chest pain, ruled out for myocardial infarction and CVA for which we were asked to perform a transesophageal echo which we did and did not find any cardiac source of thromboembolic phenomenon. This morning, she is doing good, free of cardiac symptoms. PHYSICAL EXAMINATION: VITAL SIGNS: Heart rate is 60 beats per minute, blood pressure is 130/56, respiratory rate is 17, O2 saturation is 96% on room air. NECK: There is no jugular venous distention. CHEST: Reveals good air entry bilaterally. HEART: Reveals first and second heart sounds and a systolic murmur at the left lower sternal border. ABDOMEN: Soft. EXTREMITIES: Exam of extremities revealed mild edema. Peripheral pulses are felt. LABORATORY DATA: Labs showed potassium of 4.7, hemoglobin is 13.3. Creatinine is 0.8. ASSESSMENT: 1. Cerebrovascular accident, status post transesophageal echocardiogram. 2. Chest pain, myocardial infarction ruled out. PLAN: The patient is doing well. MMODL / IJN: [id number] /
[2023-02-23 16:21] LABS: Glucose,Whole Blood 170 mg/dL (70-110)
[2023-02-23 20:39] LABS: Glucose,Whole Blood 157 mg/dL (70-110)
--- NOTE | 2023-02-23 21:22 | P.PN ---
Subjective Progress Note Date: 02/23/23 patient is a 87-year-old lady with past medical history significant for coronary artery disease, hypertension, hypothyroidism, non insulin-dependent diabetes mellitus, CHF who brought to the ER because of chest pain. Patient stated that chest pain started 8 hours prior to coming to the ER. Chest pain was central in location, pressure-like, nonradiating, no aggravating or relieving factors associated with this chest pain. Complains associated nausea but no vomiting. Patient also complaining of right lower abdominal pain denies any urinary symptoms of increased frequency or burning micturition or urgency. Because of this chest pain, patient was evaluated in the ER Initial lab work in the ER showed WBC 7.2, hemoglobin 13, platelet count 3.8, sodium 128, potassium 4.4, chloride 92, BUN 21, creatinine 0.86, Chest x-ray done showed no acute pulmonary process CT abdominal and pelvis done showed moderate right hydronephrosis and moderate to marked hydroureter extending to the pelvic inlet, moderate-sized hiatal hernia 02/20. Patient seen and examined. Patient was seen by cardiology, they r ecommended increased dose of losartan to 100 mg daily, they recommended no ischemic workup at this time. urology also evaluated the patient for computed tomography scan finding of hydronephrosis, at this time urology recommended in light of normal creatinine and no symptoms it could be over distention of bladder, don't recommend any further workup. Patient was later found to be less responsive, lethargic. Patient was weak on her right side. Stat CT head and CT head and neck were ordered and patient was transferred to stepdown 02/21. Patient seen and examined. CT brain done on 02/20 showed atrophy with chronic appearing periventricular white matter ischemic changes. CTA negative for no flow-limiting stenosis bilateral carotid bifurcations. According to family, patient is doing much better 02/22/2023 Patient is seen and evaluated and follow-up continues to be in the ICU with neurology with neurology and cardiology following and plan is to undergo JAZZY along with EEG which is pending at this time. Blood sugars have been elevated and will continue to monitor closely with Accu-Cheks before meals and at bedtime and will add long-acting as needed. Patient is currently baseline with no focal deficits noted at this time. 02/23/2023 Patient is seen and evaluated in follow-up today with cardiology and neurology following. Patient underwent JAZZY which was not suggestive of any thromboembolic event an EEG showed no epileptiform discharges. Patient's mentation is much improved and weakness resolved. Patient is continued on aspirin and Plavix and will continue. Patient having some better controlled blood sugars from dropping overnight and will continue sliding scale and have resumed Amaryl. Will continue to hold metformin for now. Labs reviewed within normal limits. P atient having some lower blood pressure readings with adjustments being made. Patient is afebrile denies chest pain or shortness of breath. Social work following and case management working on discharge planning with home care and home patient lives with her son. Review of systems: Constitutional: No reports of fatigue, fever, or chills Cardiovascular: No reports of chest pain or palpitations Respiratory: No reports of shortness of breath or cough GI: No reports of nausea, vomiting, or diarrhea : No reports of dysuria or retention Neurovascular: No reports of weakness or numbness All medications have been reviewed PHYSICAL EXAMINATION: GENERAL: The patient is alert, awake, not in any acute distress. Well developed, well nourished. Obese HEENT: Pupils are round and equally reacting to light. EOMI. No scleral icterus. No conjunctival pallor. Normocephalic, atraumatic. No pharyngeal erythema. No thyromegaly. CARDIOVASCULAR: S1 and S2 muffled PULMONARY: Chest is clear to auscultation, no wheezing or crackles. ABDOMEN: Soft, nontender, nondistended, normoactive bowel sounds. No palpable organomegaly. MUSCULOSKELETAL: No joint swelling or deformity. EXTREMITIES: No cyanosis, clubbing, or pedal edema. NEUROLOGICAL: Strength 5 out of 5 in the left side,4by 5 in right side which is chronic from previous stroke . No facial droop. SKIN: No rashes. Assessment: Acute episode of unresponsiveness followed by right hemiparesis. 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 Blood pressures on the softer side with multiple medications being adjusted as patient is extremely concerned and will decrease the losartan to half dose and discontinue Norvasc and monitor blood pressure overnight. Patient is high risk for falls. Recommend continue telemetry monitoring along with aspirin and Plavix MRI was showing CVA and will continue current medication regimen and outpatient follow-up with neurology Recommend continued monitoring of Accu-Cheks before meals and at bedtime and will resume home medications and monitor Continue neuro checks Will discuss with social work/case management about discharge planning as patient is planning on returning home and will have home care Probable discharge in 24 hours The impression and plan of care has been dictated by Kesha Velásquez, Nurse Practitioner as directed. Dr. Marquez MD I have performed a history and examination and MDM of this patient, discussed the same with the dictator, and agree with the dictator's assessment and plan as written ,documented as a scribe. Based on total visit time, I have performed more than 50% of the visit. Objective - Vital Signs Vital signs: Vital Signs Temp 97.7 F 02/23/23 04:00 Pulse 60 02/23/23 04:00 Resp 17 02/23/23 04:00 BP 133/56 02/23/23 00:00 Pulse Ox 96 02/23/23 07:48 FiO2 Intake & Output 02/22/23 02/23/23 02/23/23 18:59 06:59 18:59 Intake Total 250 150 500 Output Total 500 400 Balance -250 -250 500 Intake: IV 50 Oral 200 150 500 Output: Urine 500 400 Other: Voiding Method Bedside Commode Bedside Commode # Voids 3 - Labs CBC & Chem 7: 02/23/23 05:26 02/23/23 05:26 Labs: Abnormal Lab Results - Last 24 Hours (Table) 02/22/23 02/22/23 02/22/23 Range/Units 13:52 16:06 18:53 Sodium (137-145) mmol/L BUN (7-17) mg/dL Glucose (74-99) mg/dL POC Glucose (mg/dL) 201 H 205 H 378 H (70-110) mg/dL 02/22/23 02/23/23 02/23/23 Range/Units 21:00 05:26 07:13 Sodium 133 L (137-145) mmol/L BUN 19 H (7-17) mg/dL Glucose 153 H (74-99) mg/dL POC Glucose (mg/dL) 189 H 194 H (70-110) mg/dL
[2023-02-24] MEDS: ALPRAZolam 0.25 MG TAB PO PRN (01:27)
[2023-02-24 06:15] LABS: Glucose,Whole Blood 187 mg/dL (70-110)
[2023-02-24] MEDS: GLIMEPIRIDE 1 MG TAB PO SCH ×2 (06:25→09:25)
[2023-02-24] MEDS: LEVOTHYROXINE 88 MCG TAB PO SCH (06:25)
[2023-02-24] MEDS: INSULIN ASPART (NovoLOG) 100 UNIT/ML VIAL SQ SCH ×2 (06:26→12:31)
[2023-02-24 08:08] VITALS: TEMP 97.8
[2023-02-24] MEDS ORDERED: LOSARTAN 50 MG TAB PO SCH (09:00)
[2023-02-24] MEDS: ASPIRIN 81 MG PO SCH (09:25)
[2023-02-24] MEDS: ATORVASTATIN 40 MG TAB PO SCH (09:25)
[2023-02-24] MEDS: CLOPIDOGREL 75 MG TAB PO SCH (09:26)
[2023-02-24] MEDS: FUROSEMIDE 20 MG TAB PO SCH (09:26)
[2023-02-24] MEDS: DOCUSATE 100 MG CAP PO SCH (09:26)
[2023-02-24] MEDS: FAMOTIDINE 20 MG TAB PO SCH (09:26)
[2023-02-24] MEDS: ISOSORBIDE MONONITRATE ER 30 MG TAB.ER.24H PO SCH (09:27)
[2023-02-24] MEDS: METOPROLOL TARTRATE 50 MG TAB PO SCH (09:27)
--- NOTE | 2023-02-24 10:51 | P.PN ---
Subjective Progress Note Date: 02/23/23 Patient was seen for a follow-up. Patient's both sons were also present today. No new concerns. Patient is laying comfortably in the bed. Patient is back to baseline. Her mentation is perfectly normal. No further syncopal spells. Patient walked to the shower with her walker. Objective - Vital Signs Vital signs: Vital Signs Temp 97.7 F 02/23/23 04:00 Pulse 52 L 02/23/23 11:30 Resp 17 02/23/23 11:30 BP 118/60 02/23/23 11:30 Pulse Ox 96 02/23/23 07:48 FiO2 Intake & Output 02/22/23 02/23/23 02/23/23 18:59 06:59 18:59 Intake Total 250 150 500 Output Total 500 400 Balance -250 -250 500 Weight 69.7 kg Intake: IV 50 Oral 200 150 500 Output: Urine 500 400 Other: Voiding Method Bedside Commode Bedside Commode # Voids 3 - Exam Patient holding fork with his right hand, eating. Speech and language functions are perfectly normal. She is back to baseline. - Labs CBC & Chem 7: 02/23/23 05:26 02/23/23 05:26 Labs: Abnormal Lab Results - Last 24 Hours (Table) 02/22/23 02/22/23 02/22/23 Range/Units 13:52 16:06 18:53 Sodium (137-145) mmol/L BUN (7-17) mg/dL Glucose (74-99) mg/dL POC Glucose (mg/dL) 201 H 205 H 378 H (70-110) mg/dL 02/22/23 02/23/23 02/23/23 Range/Units 21:00 05:26 07:13 Sodium 133 L (137-145) mmol/L BUN 19 H (7-17) mg/dL Glucose 153 H (74-99) mg/dL POC Glucose (mg/dL) 189 H 194 H (70-110) mg/dL 02/23/23 Range/Units 11:43 Sodium (137-145) mmol/L BUN (7-17) mg/dL Glucose (74-99) mg/dL POC Glucose (mg/dL) 219 H (70-110) mg/dL Assessment and Plan Assessment: * Acute episode of unresponsiveness followed by right hemiparesis. Symptoms have completely resolved, now with residual right hemiparesis related to previous stroke that happened 6 years ago. * MRI brain revealed small focus of acute/subacute CVA right parietal lobe cortex. 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 Patient after episode of unresponsiveness had right hemiparesis, but seems to have mostly resolved, with residual right hemiparesis, which is from previous stroke 6 years ago. All her symptoms have resolved. * MRI of the brain revealed small focus of acute/subacute CVA right parietal lobe cortex. I personally reviewed MRI, I agree with the findings. Apparently patient had worsening of her baseline hemiparesis on the ipsilateral side of this stroke, therefore uncertain if symptomatic. * Patient has multiple (4) strokes in the past. She states that she had stroke in the left eye, then involve the right arm, then the left arm and now this being the fourth event. * CTA of the neck and head showed no flow-limiting stenosis bilateral carotid bifurcations. Mild atheromatous plaquing is present at the carotid bifurcat ions. Normal kashia of [place]. * JAZZY performed 02/22/2023 showed no intracardiac thrombus. Normal left- ventricular function, no evidence of shunting across the interatrial septum. Left atrium appears enlarged. Aortic root is normal. No embolic source. * Recommend 30 day event monitoring to rule out paroxysmal atrial fibrillation. * Routine EEG was performed, which was abnormal due to mild background slowing consistent with encephalopathy. Superimposed intermittent bitemporal dysrhythmic delta slowing, left more than right, suggestive of focal cortical neuronal dysfunction. Some occasional left temporal sharply contoured waves were seen which did not appear clearly epileptiform. If your suspicion for seizures is high, suggest prolonged EEG for further evaluation. * Prolonged EEG revealed mildly abnormal study. No seizures were recorded. No epileptiform activity was seen. The occasional focal left frontotemporal theta a range slowing is not epileptiform in nature. The findings indicate mild focal cerebral dysfunction involving the corresponding region. * Although no epileptiform activity was seen during the study, but the seizure disorder cannot be ruled out, especially with focal slowing noted on the EEG. I discussed with patient and her sons about empirically treatment with antiepileptic medication but they want to hold off on it. We will see the results of event monitoring. * Recommend patient follow up with neurologist as an outpatient. * Hemoglobin A1c 7.7 on 11/10/2022, lipid panel with cholesterol 199, LDL 98, HDL 70, triglycerides 155 on 11/10/2022. * Continue Plavix 75 mg, aspirin 81 mg and Lipitor 40 mg daily. * Neurologically clear for discharge.
--- NOTE | 2023-02-24 11:42 | P.PN ---
Subjective HISTORY OF PRESENT ILLNESS: The patient's is an 87-year-old female with past medical history of coronary artery disease with prior stenting, hypertension, hyperlipidemia, diabetes mellitus, carotid stenosis and CVA. The patient follows in the office with Dr. MATT Silva. The patient presented to the emergency room with chest heaviness and associated shortness of breath. She states this started abruptly yesterday when she was sitting in the chair. She states she felt uncomfortable, therefore got up to walk around, when she felt as though she could not take in a deep breath. The patient states she has seen her business law teacher approximately one month ago and she has been compliant with her medication regimen. DIAGNOSTICS: EKG shows sinus bradycardia with right bundle branch block Chest x-ray shows no acute cardiopulmonary process Computed tomography scan of the abdomen and pelvis shows moderate right hydronephrosis and moderate sized hiatal hernia labs: WBC 7.2, hemoglobin 13.0, hematocrit 37.9, platelet 320, sodium 128, potassium 4.4, BUN 21, creatinine 0.86, magnesium 1.6, AST 25, ALT 23, troponins negative 3 02/24/2023 This is a 87 year old female who initially presented to the hospital with a chief complaint of chest pain. The patient was to be discharged and then she developed right-sided weakness. She was found to have acute CVA. She underwent JAZZY which was negative for PFO. Event monitor was placed yesterday. Telemetry reveals sinus mechanism. She denies chest pain or pressure. Denies SOB. Vital signs are stable. PHYSICAL EXAM: VITAL SIGNS: Reviewed. GENERAL: Well-developed in no acute distress. NECK: Supple. No JVD or thyromegaly LUNGS: Respirations even and unlabored. Lungs essentially clear to auscultation bilaterally. HEART: Regular rate and rhythm. S1 and S2 heard. EXTREMITIES: Normal range of motion. No clubbing or cyanosis. Peripheral pulses intact. No lower extremity edema ASSESSMENT: Chest pain, ACS ruled out CVA, s/p JAZZY Hypertension, increased losartan History of hyperlipidemia History diabetes History of coronary artery disease History of carotid stenosis History of CVA PLAN: Continue current cardiac medications Event monitor placed yesterday Stable from a cardiac standpoint Patient to follow-up post discharge with Dr. Silva Nurse practitioner note has been reviewed by physician. Signing provider agrees with the documented findings, assessment, and plan of care. Objective - Vital Signs Vital signs: Vital Signs Temp 97.8 F 02/24/23 04:00 Pulse 64 02/24/23 08:24 Resp 16 02/24/23 08:24 BP 134/69 02/24/23 08:24 Pulse Ox 98 02/24/23 08:24 FiO2 Intake & Output 02/23/23 02/24/23 02/24/23 18:59 06:59 18:59 Intake Total 1100 200 Balance 1100 200 Weight 69.7 kg Intake: Oral 1100 200 Other: Voiding Method Bedside Commode Bedside Commode # Voids 1 1 - Labs CBC & Chem 7: 02/23/23 05:26 02/23/23 05:26 Labs: Abnormal Lab Results - Last 24 Hours (Table) 02/23/23 02/23/23 02/23/23 Range/Units 11:43 16:18 20:38 POC Glucose (mg/dL) 219 H 170 H 157 H (70-110) mg/dL 02/24/23 Range/Units 06:13 POC Glucose (mg/dL) 187 H (70-110) mg/dL
[2023-02-24 11:59] LABS: Glucose,Whole Blood 188 mg/dL (70-110)
[2023-02-24 15:42] VITALS: BP 111/58; PULSE 89; RESP 16
[2023-02-24] MEDS ORDERED: ATORVASTATIN 40 MG TAB PO SCH (21:00)
--- NOTE | 2023-02-25 16:52 | P.DS ---
Providers Date of admission: 02/21/23 07:01 Expected date of discharge: 02/24/23 Attending physician: Andre Mathews MD Consults: 02/18/23 23:03 Consult Physician Routine Consulting Provider: Fermín Serrano Consult Reason/Comments: CP Do you want consulting provider notified?: Yes 02/19/23 10:10 Consult Physician Routine Consulting Provider: Rodríguez Bermeo Consult Reason/Comments: Right-sided hydronephrosis Do you want consulting provider notified?: Yes 02/20/23 10:44 Consult Physician Urgent Consulting Provider: Ailyn Lucas Consult Reason/Comments: possible cva ,ams Do you want consulting provider notified?: Yes Primary care physician: Anthony Cameron Hospital Course: Final diagnosis Acute episode of unresponsiveness followed by right hemiparesis. 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 Patient will follow-up with Dr. Cameron in the outpatient setting upon discharge. Patient is to continue with current medications and follow-up with cardiology and neurology outpatient as scheduled. Total time taken is greater than 35 minutes. Hospital course This is a 87-year-old female who was recently admitted with chest pain initially ruled out ACS with cardiology following closely. Patient had a period of unresponsiveness and right hemiparesis with concerns and neurology consulted and patient was noted to have acute CVA on MRI of the brain. Patient is maintained on aspirin and Plavix and will continue and also underwent EEG which was negative for epileptiform activity and also underwent JAZZY not suggestive of thrombus. Patient has been cleared by consultations for discharge with adjustments to medications his blood pressures had been decreased. Medications were decreased as well and instructed to follow-up with primary care provider along with cardiology in one week. Recommend close monitoring of blood sugars as blood sugars were slightly elevated during hospitalization. Patient does not normally use insulin for coverage. Please refer to other consultation notes for further HPI. Currently no reports of chest pain, shortness of breath, or palpitations. Patient is afebrile. No reports of nausea or vomiting and patient is tolerating diet. Patient will be discharged home with home care today. Physical exam: Gen: This is a 87-year-old female who is awake, alert and oriented 3, well- developed, well-nourished, obese HEENT: Head is atraumatic, normocephalic. Pupils equal, round. Sclerae is anicteric. NECK: Supple. No JVD. No lymphadenopathy. No thyromegaly. LUNGS: Clear to auscultation. No wheezes or rhonchi. No intercostal retractions. HEART: Regular rate and rhythm. No murmur. ABDOMEN: Soft. obese .Bowel sounds are present. No masses. No tenderness. EXTREMITIES: No pedal edema. No calf tenderness. NEUROLOGICAL: Patient is awake, alert and oriented x3. Cranial nerves 2 through 12 are grossly intact. Please refer to medication reconciliation sheet for a list of medications. The impression and plan of care has been dictated by Kesha Velásquez, Nurse Practitioner as directed. Dr. Marquez MD I have performed a history and examination and MDM of this patient, discussed the same with the dictator, and agree with the dictator's assessment and plan as written ,documented as a scribe. Based on total visit time, I have performed more than 50% of the visit. Patient Condition at Discharge: Stable Plan - Discharge Summary New Discharge Prescriptions: New Losartan [Cozaar] 50 mg PO DAILY 30 Days #30 tab Continue Vits A,C,E/Lutein/Minerals [Ocuvite with Lutein Tablet] 1 tab PO HS Levothyroxine Sodium [Synthroid] 88 mcg PO DAILY ALPRAZolam [Xanax] 0.25 mg PO DAILY PRN #30 PRN Reason: Anxiety metFORMIN HCL [Glucophage] 500 mg PO AC-BID Glimepiride [Amaryl] 1 mg PO AC-BRKFST Atorvastatin [Lipitor] 40 mg PO DAILY Metoprolol Tartrate [Lopressor] 50 mg PO BID Aspirin EC [Ecotrin Low Dose] 81 mg PO DAILY Cholecalciferol [Vitamin D3 (25 Mcg = 1000 Iu)] 25 mcg PO BID Famotidine 20 mg PO BID Isosorbide Mononitrate ER [Imdur] 30 mg PO DAILY Sennosides [Senokot] 8.6 mg PO BID PRN #20 tab PRN Reason: Constipation Clopidogrel [Plavix] 75 mg PO DAILY Acetaminophen-Codeine 300-30mg [Tylenol w/codeine #3] 1 tab PO Q6H PRN PRN Reason: Pain Furosemide [Lasix] 20 mg PO DAILY Changed Gabapentin [Neurontin] 100 mg PO BID PRN #0 PRN Reason: NERVE PAIN Discontinued amLODIPine [Norvasc] 10 mg PO DAILY 30 Days #30 tab Losartan Potassium [Cozaar] 25 mg PO DAILY Discharge Medication List Vits A,C,E/Lutein/Minerals [Ocuvite with Lutein Tablet] 1 tab PO HS 05/03/16 [History] Levothyroxine Sodium [Synthroid] 88 mcg PO DAILY 05/31/17 [History] ALPRAZolam [Xanax] 0.25 mg PO DAILY PRN #30 06/05/17 [Rx] Glimepiride [Amaryl] 1 mg PO AC-BRKFST 04/28/18 [History] metFORMIN HCL [Glucophage] 500 mg PO AC-BID 04/28/18 [History] Atorvastatin [Lipitor] 40 mg PO DAILY 03/26/21 [History] Aspirin EC [Ecotrin Low Dose] 81 mg PO DAILY 07/19/21 [History] Famotidine 20 mg PO BID 07/19/21 [History] Isosorbide Mononitrate ER [Imdur] 30 mg PO DAILY 07/19/21 [History] Metoprolol Tartrate [Lopressor] 50 mg PO BID 07/19/21 [History] Cholecalciferol [Vitamin D3 (25 Mcg = 1000 Iu)] 25 mcg PO BID 08/19/22 [History] Sennosides [Senokot] 8.6 mg PO BID PRN #20 tab 08/24/22 [Rx] Clopidogrel [Plavix] 75 mg PO DAILY 11/09/22 [History] Acetaminophen-Codeine 300-30mg [Tylenol w/codeine #3] 1 tab PO Q6H PRN 12/19/22 [History] Furosemide [Lasix] 20 mg PO DAILY 02/18/23 [History] Gabapentin [Neurontin] 100 mg PO BID PRN #0 02/23/23 [Rx] Losartan [Cozaar] 50 mg PO DAILY 30 Days #30 tab 02/23/23 [Rx] Follow up Appointment(s)/Referral(s): Anthony Cameron MD [Primary Care Provider] - 03/01/23 10:40 am (Monday) Les Silva MD [STAFF PHYSICIAN] - 03/06/23 2:00 pm (Appointment will be at the [facility]) [facility] Visiting Nurse, [NON-STAFF] - ([facility] will call you to arrange a visit) Activity/Diet/Wound Care/Special Instructions: activity limited until follow up follow up with pcp on discharge this week follow up with cardiology in one week continue to monitor blood sugars and keep a diary of all readings for pcp follow up monitor blood pressure daily and keep a diary of readings for pcp and cardio follow up continue cardiac diet/diabetic diet Discharge Disposition: HOME WITH HOME HEALTH SERVICES
== END 2023-02-24 15:00 | disposition home health service (06) | DRG 65 ==
LOC: EC 19:39 → 6NMEDSUR 23:03 → 2SICU 02-20 10:58 → OBSVTOIN 02-21 07:01 → 3SCARD 02-24 01:56
PROVIDERS: ADMIT Internal Medicine; ATTEND Internal Medicine
DX: I63.532 Cerebral infarction due to unspecified occlusion or stenosis of left posterior cerebral artery (principal); E87.1 Hypo-osmolality and hyponatremia; G93.40 Encephalopathy, unspecified; N13.30 Unspecified hydronephrosis; I69.351 Hemiplegia and hemiparesis following cerebral infarction affecting right dominant side; I11.0 Hypertensive heart disease with heart failure; I50.9 Heart failure, unspecified; E89.0 Postprocedural hypothyroidism; I69.398 Other sequelae of cerebral infarction; E11.65 Type 2 diabetes mellitus with hyperglycemia; E78.5 Hyperlipidemia, unspecified; H35.30 Unspecified macular degeneration; H54.8 Legal blindness, as defined in USA; M19.042 Primary osteoarthritis, left hand; M19.041 Primary osteoarthritis, right hand; H91.93 Unspecified hearing loss, bilateral; I45.10 Unspecified right bundle-branch block; I25.119 Atherosclerotic heart disease of native coronary artery with unspecified angina pectoris; H40.9 Unspecified glaucoma; R47.81 Slurred speech; R39.15 Urgency of urination; Z74.09 Other reduced mobility; Z95.5 Presence of coronary angioplasty implant and graft; Z79.84 Long term (current) use of oral hypoglycemic drugs; Z79.890 Hormone replacement therapy; Z79.82 Long term (current) use of aspirin; Z79.891 Long term (current) use of opiate analgesic; Z79.02 Long term (current) use of antithrombotics/antiplatelets; Z91.018 Allergy to other foods; Z91.048 Other nonmedicinal substance allergy status; I25.2 Old myocardial infarction; Z97.4 Presence of external hearing-aid; Z82.49 Family history of ischemic heart disease and other diseases of the circulatory system
CPT/HCPCS: 36415; 70450; 70496; 70498; 70551; 71046; 74176; 80048; 80053; 81001; 83735; 83880; 84484; 85025; 85610; 85730; 93005; 93270; 93312; 93320; 93325; 94760; 95813; 95816; 99285

== ENCOUNTER 2023-03-12 07:53 | Inpatient (IN) | payer MEDICARE, BC ==
[2023-03-12] MEDS ORDERED: hydrALAZINE HCL 20 MG/ML 1 ML VIAL IVP STA (08:29)
[2023-03-12] MEDS ORDERED: HYDROmorphone 0.5 MG/0.5 ML SYRINGE IVP STA (08:29)
--- NOTE | 2023-03-12 08:32 | ED ---
General Adult HPI - General Chief complaint: Headache Stated complaint: headache Time Seen by Provider: 03/12/23 08:10 Source: patient, RN notes reviewed, old records reviewed Mode of arrival: wheelchair Limitations: no limitations - History of Present Illness Initial comments: This is an 87-year-old female presents emergency room complaining of headache. Patient states started last night. Patient thinks it's from the glue that was placed on her head for an EEG. Son states that the patient's been slightly altered since last evening as well which she normally is not. Patient did not take her blood pressure medications and her blood pressure significantly elevated. Patient is also on Plavix. Patient denies any numbness weakness and states she has no slurred speech no focal deficits. Patient denies any chest pain palpitations difficulty breathing shortest breath per patient denies any fever chills per patient denies abdominal pain patient denies nausea vomiting diarrhea. - Related Data Home Medications Medication Instructions Recorded Confirmed Vits A,C,E/Lutein/Minerals 1 tab PO HS 05/03/16 02/18/23 [Ocuvite with Lutein Tablet] Levothyroxine Sodium [Synthroid] 88 mcg PO DAILY 05/31/17 02/18/23 Glimepiride [Amaryl] 1 mg PO AC-BRKFST 04/28/18 02/18/23 metFORMIN HCL [Glucophage] 500 mg PO AC-BID 04/28/18 02/18/23 Atorvastatin [Lipitor] 40 mg PO DAILY 03/26/21 02/18/23 Aspirin EC [Ecotrin Low Dose] 81 mg PO DAILY 07/19/21 02/18/23 Famotidine 20 mg PO BID 07/19/21 02/18/23 Isosorbide Mononitrate ER [Imdur] 30 mg PO DAILY 07/19/21 02/18/23 Metoprolol Tartrate [Lopressor] 50 mg PO BID 07/19/21 02/18/23 Cholecalciferol [Vitamin D3 (25 25 mcg PO BID 08/19/22 02/18/23 Mcg = 1000 Iu)] Clopidogrel [Plavix] 75 mg PO DAILY 11/09/22 02/18/23 Acetaminophen-Codeine 300-30mg 1 tab PO Q6H PRN 12/19/22 02/18/23 [Tylenol w/codeine #3] Furosemide [Lasix] 20 mg PO DAILY 02/18/23 02/18/23 Previous Rx's Medication Instructions Recorded ALPRAZolam [Xanax] 0.25 mg PO DAILY PRN #30 06/05/17 Sennosides [Senokot] 8.6 mg PO BID PRN #20 tab 08/24/22 Gabapentin [Neurontin] 100 mg PO BID PRN #0 02/23/23 Losartan [Cozaar] 50 mg PO DAILY 30 Days #30 tab 02/23/23 Allergies Allergy/AdvReac Type Severity Reaction Status Date / Time aspartame Allergy Severe Anaphylaxis- Verified 02/18/23 21:56 swelling throat & tongue PAPER TAPE Allergy Unknown Rash/Hives Uncoded 01/09/23 10:29 Review of Systems ROS Statement: Those systems with pertinent positive or pertinent negative responses have been documented in the HPI. ROS Other: All systems not noted in ROS Statement are negative. 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 , [place]-HEARING AIDS, WEAKNESS RIGHT SIDE -USES WALKER WITH WHEELS. Last Myocardial Infarction Date:: 09/2018 History of Any Multi-Drug Resistant Organisms: None Reported Past Surgical History: Back Surgery, Breast Surgery, Heart Catheterization With Stent, Hysterectomy, Orthopedic Surgery, Tubal Ligation Additional Past Surgical History / Comment(s): PCI with a total of 7 stents, low back surgery, L breast benign bx, R rotator cuff repair, R eye cataract, multiple laser eye surgeries, bilateral eye stents-R one fell out, thyroidectomy d/t nodules, temporal artery bx, cervical and lumbar injections. Past Anesthesia/Blood Transfusion Reactions: Previous Problems w/ Anesthesia, Postoperative Nausea & Vomiting (PONV) Additional Past Anesthesia/Blood Transfusion Reaction / Comment(s): hard to wake up Date of Last Stent Placement:: 10/19/18 Past Psychological History: Anxiety Smoking Status: Never smoker Past Alcohol Use History: None Reported Past Drug Use History: None Reported - Past Family History Mother Family Medical History: Myocardial Infarction ([place]) Additional Family Medical History / Comment(s): MOTHER OF [place] AGE 57YRS. Brother(s) Family Medical History: Myocardial Infarction ([place]) Additional Family Medical History / Comment(s): BROTHER OF A [place] AGE 60YRS. Father Family Medical History: No Reported History Additional Family Medical History / Comment(s): FATHER LIVED TO BE 90YRS OLD. General Exam - General Exam Comments Initial Comments: GENERAL: Patient is well-developed and well-nourished. Patient is nontoxic and well- hydrated and is in moderate distress. ENT: Neck is soft and supple. No significant lymphadenopathy is noted. Oropharynx is clear. Moist mucous membranes. Neck has full range of motion without eliciting any pain. EYES: The sclera were anicteric and conjunctiva were pink and moist. Extraocular movements were intact and pupils were equal round and reactive to light. Eyelids were unremarkable. PULMONARY: Unlabored respirations. Good breath sounds bilaterally. No audible rales rhonchi or wheezing was noted. CARDIOVASCULAR: There is a regular rate and rhythm without any murmurs gallops or rubs. ABDOMEN: Soft and nontender with normal bowel sounds. SKIN: Skin is clear with no lesions or rashes and otherwise unremarkable. NEUROLOGIC: Patient is alert and oriented x3. Cranial nerves II through XII are grossly intact. Motor and sensory are also intact. Normal speech, volume and content. Symmetrical smile. MUSCULOSKELETAL: Normal extremities with adequate strength and full range of motion. LYMPHATICS: No significant lymphadenopathy is noted PSYCHIATRIC: Normal psychiatric evaluation. Limitations: no limitations Course Vital Signs 03/12/23 03/12/23 03/12/23 08:01 08:18 08:53 Temperature 98.1 F Pulse Rate 63 58 L Respiratory 20 16 Rate Blood Pressure 202/73 216/81 218/82 O2 Sat by Pulse 98 95 Oximetry 03/12/23 09:30 Temperature Pulse Rate 86 Respiratory 22 Rate Blood Pressure 143/57 O2 Sat by Pulse 97 Oximetry Medical Decision Making - Medical Decision Making EKG as interpreted by myself shows a sinus rhythm at 64 bpm LA interval 176 QRS is under 28 QT interval is 490 QTC is 419 2 patient's EKG shows no ST segment elevation or depression. Patient does have a right bundle branch block. Repeat EKG was done because patient was having some chest discomfort after the Dilaudid. EKG was interpreted by myself shows a sinus rhythm at 70 bpm LA interval 178 QRSs 134 QT interval is 420 QTC is 449. Patient's EKG shows no acu te abnormality. Patient has a right bundle branch block. Was pt. sent in by a medical professional or institution (, [facility], [facility], urgent care, hospital, or skilled nursing...) When possible be specific @ -No Did you speak to anyone other than the patient for history (EMS, parent, family, police, friend...)? What history was obtained from this source @ -Son gave some of the history Did you review nursing and triage notes (agree or disagree)? Why? @ -I reviewed and agree with nursing and triage notes Were old charts reviewed (outside hosp., previous admission, EMS record, old EKG, old radiological studies, urgent care reports/EKG's, skilled nursing records)? Report findings @ -I reviewed prior lab work from prior radiological studies charts on this patient Differential Diagnosis (chest pain, altered mental status, abdominal pain women, abdominal pain men, vaginal bleeding, weakness, fever, dyspnea, syncope, headache, dizziness, GI bleed, back pain, seizure, CVA, palpatations, mental health, musculoskeletal)? @ -Differential Headache: Migraine, tension, cluster, carbon monoxide, central venous thrombosis, pension karma temporal arteritis, acute closure glaucoma, intercranial hemorrhage, mastoiditis, sinusitis, head injury, this is not meant to be an all-inclusive list. EKG interpreted by me (3pts min.). @ -As above X-rays interpreted by me (1pt min.). @ -X-ray showed a questionable opacification in the left lower lobe CT interpreted by me (1pt min.). @ -CT of the brain showed no acute abnormality U/S interpreted by me (1pt. min.). @ -None done What testing was considered but not performed or refused? (CT, X-rays, U/S, labs)? Why? @ -None What meds were considered but not given or refused? Why? @ -None Did you discuss the management of the patient with other professionals (professionals i.e. , [facility], [facility], lab, RT, psych nurse, health care social worker, senior planning manager, teacher, field crop technical officer, foster care case manager)? Give summary @ -I spoke with Dr. Alcantara he agreed to admit the patient Was smoking cessation discussed for >3mins.? @ -No Was critical care preformed (if so, how long)? @ -No Were there social determinants of health that impacted care today? How? (Homelessness, low income, unemployed, alcoholism, drug addiction, transportation, low edu. Level, literacy, decrease access to med. care, fpc, rehab)? @ -No Was there de-escalation of care discussed even if they declined (Discuss DNR or withdrawal of care, Hospice)? DNR status @ -No What co-morbidities impacted this encounter? (DM, HTN, Smoking, COPD, CAD, Cancer, CVA, ARF, Chemo, Hep., AIDS, mental health diagnosis, sleep apnea, morbid obesity)? @ -Coronary artery disease with multiple stents Was patient admitted / discharged? Hospital course, mention meds given and route, prescriptions, significant lab abnormalities, going to OR and other pertinent info. @ -Patient had half of Dilaudid for the headache and some hydralazine to bring the pressure down she was feeling considerably better but then started experiencing chest pain or repeat EKG was done. Patient's troponin was normal however at this point time because of her previous cardiac history we admitted the patient to Dr. Montgomery and consulted cardiology Undiagnosed new problem with uncertain prognosis? @ -No Drug Therapy requiring intensive monitoring for toxicity (Heparin, Nitro, Insulin, Cardizem)? @ -No Were any procedures done? @ -No Diagnosis/symptom? @ -Chest pain Acute, or Chronic, or Acute on Chronic? @ -Acute Uncomplicated (without systemic symptoms) or Complicated (systemic symptoms)? @ -Complicated Side effects of treatment? @ -No Exacerbation, Progression, or Severe Exacerbation? @ -No Poses a threat to life or bodily function? How? (Chest pain, [place], [place], pneumonia, PE, COPD, DKA, ARF, appy, cholecystitis, CVA, Diverticulitis, Homicidal, S uicidal, threat to staff... and all critical care pts) @ -This could lead to rule out [place] which can lead to poor perfusion and end organ dysfunction Diagnosis/symptom? @ -Hypertensive urgency Acute, or Chronic, or Acute on Chronic? @ -Yes Uncomplicated (without systemic symptoms) or Complicated (systemic symptoms)? @ -Complicated Side effects of treatment? @ -none Exacerbation, Progression, or Severe Exacerbation] @ -no Poses a threat to life or bodily function? @ -Yes this could lead to hypertensive crisis and orbit or mortality - Lab Data Result diagrams: 03/12/23 08:31 03/12/23 08:31 Lab Results 03/12/23 03/12/23 03/12/23 Range/Units 08:31 08:31 08:31 WBC 7.9 (3.8-10.6) k/uL RBC 4.44 (3.80-5.40) m/uL Hgb 13.9 (11.4-16.0) gm/dL Hct 40.1 (34.0-46.0) % MCV 90.2 (80.0-100.0) fL MCH 31.3 (25.0-35.0) pg MCHC 34.8 (31.0-37.0) g/dL RDW 13.2 (11.5-15.5) % Plt Count 300 (150-450) k/uL MPV 8.4 Neutrophils % 60 % Lymphocytes % 27 % Monocytes % 7 % Eosinophils % 4 % Basophils % 1 % Neutrophils # 4.7 (1.3-7.7) k/uL Lymphocytes # 2.1 (1.0-4.8) k/uL Monocytes # 0.5 (0-1.0) k/uL Eosinophils # 0.3 (0-0.7) k/uL Basophils # 0.0 (0-0.2) k/uL PT 9.8 (9.0-12.0) sec INR 0.9 (<1.2) APTT 24.7 (22.0-30.0) sec Sodium 135 L (137-145) mmol/L Potassium 4.5 (3.5-5.1) mmol/L Chloride 99 (98-107) mmol/L Carbon Dioxide 26 (22-30) mmol/L Anion Gap 10 mmol/L BUN 15 (7-17) mg/dL Creatinine 0.82 (0.52-1.04) mg/dL Est GFR (CKD-EPI)AfAm 73 (>60 ml/min/1.73 sqM) Est GFR (CKD-EPI)NonAf 64 (>60 ml/min/1.73 sqM) Glucose 181 H (74-99) mg/dL POC Glucose (mg/dL) (70-110) mg/dL POC Glu Nail Machine Operator ID Calcium 9.1 (8.4-10.2) mg/dL Total Bilirubin 0.6 (0.2-1.3) mg/dL AST 23 (14-36) U/L ALT 23 (4-34) U/L Alkaline Phosphatase 176 H (38-126) U/L Troponin I (0.000-0.034) ng/mL Total Protein 7.4 (6.3-8.2) g/dL Albumin 4.5 (3.5-5.0) g/dL Urine Color Urine Appearance (Clear) Urine pH (5.0-8.0) Ur Specific [place] (1.001-1.035) Urine Protein (Negative) Urine Glucose (UA) (Negative) Urine Ketones (Negative) Urine Blood (Negative) Urine Nitrite (Negative) Urine Bilirubin (Negative) Urine Urobilinogen (<2.0) mg/dL Ur Leukocyte Esterase (Negative) Urine Opiates Screen (NotDetected) Ur Oxycodone Screen (NotDetected) Urine Methadone Screen (NotDetected) Ur Propoxyphene Screen (NotDetected) Ur Barbiturates Screen (NotDetected) U Tricyclic Antidepress (NotDetected) Ur Phencyclidine Scrn (NotDetected) Ur Amphetamines Screen (NotDetected) U Methamphetamines Scrn (NotDetected) U Benzodiazepines Scrn (NotDetected) Urine Cocaine Screen (NotDetected) U Marijuana (THC) Screen (NotDetected) 03/12/23 03/12/23 03/12/23 Range/Units 08:31 09:36 10:07 WBC (3.8-10.6) k/uL RBC (3.80-5.40) m/uL Hgb (11.4-16.0) gm/dL Hct (34.0-46.0) % MCV (80.0-100.0) fL MCH (25.0-35.0) pg MCHC (31.0-37.0) g/dL RDW (11.5-15.5) % Plt Count (150-450) k/uL MPV Neutrophils % % Lymphocytes % % Monocytes % % Eosinophils % % Basophils % % Neutrophils # (1.3-7.7) k/uL Lymphocytes # (1.0-4.8) k/uL Monocytes # (0-1.0) k/uL Eosinophils # (0-0.7) k/uL Basophils # (0-0.2) k/uL PT (9.0-12.0) sec INR (<1.2) APTT (22.0-30.0) sec Sodium (137-145) mmol/L Potassium (3.5-5.1) mmol/L Chloride (98-107) mmol/L Carbon Dioxide (22-30) mmol/L Anion Gap mmol/L BUN (7-17) mg/dL Creatinine (0.52-1.04) mg/dL Est GFR (CKD-EPI)AfAm (>60 ml/min/1.73 sqM) Est GFR (CKD-EPI)NonAf (>60 ml/min/1.73 sqM) Glucose (74-99) mg/dL POC Glucose (mg/dL) 195 H (70-110) mg/dL POC Glu Nail Machine Operator ID Kiya Maldonado Calcium (8.4-10.2) mg/dL Total Bilirubin (0.2-1.3) mg/dL AST (14-36) U/L ALT (4-34) U/L Alkaline Phosphatase (38-126) U/L Troponin I <0.012 (0.000-0.034) ng/mL Total Protein (6.3-8.2) g/dL Albumin (3.5-5.0) g/dL Urine Color Colorless Urine Appearance Clear (Clear) Urine pH 7.0 (5.0-8.0) Ur Specific [place] 1.004 (1.001-1.035) Urine Protein Trace H (Negative) Urine Glucose (UA) Negative (Negative) Urine Ketones Negative (Negative) Urine Blood Negative (Negative) Urine Nitrite Negative (Negative) Urine Bilirubin Negative (Negative) Urine Urobilinogen <2.0 (<2.0) mg/dL Ur Leukocyte Esterase Negative (Negative) Urine Opiates Screen Detected H (NotDetected) Ur Oxycodone Screen Not Detected (NotDetected) Urine Methadone Screen Not Detected (NotDetected) Ur Propoxyphene Screen Not Detected (NotDetected) Ur Barbiturates Screen Not Detected (NotDetected) U Tricyclic Antidepress Not Detected (NotDetected) Ur Phencyclidine Scrn Not Detected (NotDetected) Ur Amphetamines Screen Not Detected (NotDetected) U Methamphetamines Scrn Not Detected (NotDetected) U Benzodiazepines Scrn Not Detected (NotDetected) Urine Cocaine Screen Not Detected (NotDetected) U Marijuana (THC) Screen Not Detected (NotDetected) Disposition Clinical Impression: Chest pain, Hypertensive urgency Disposition: ADMITTED IP TO THIS HOSP Referrals: Anthony Cameron MD [Primary Care Provider] - 1-2 days Time of Disposition: 11:14
[2023-03-12 08:39] LABS: Basophils % (A) 1 %; Eosinophils # (A) 0.3 k/uL (0-0.7); Eosinophils % (A) 4 %; HCT 40.1 % (34.0-46.0); HGB 13.9 gm/dL (11.4-16.0); Lymphocytes # (A) 2.1 k/uL (1.0-4.8); Lymphocytes % (A) 27 %; MCH 31.3 pg (25.0-35.0); MCHC 34.8 g/dL (31.0-37.0); MCV 90.2 fL (80.0-100.0); Mean Platelet Volume 8.4; Monocytes # (A) 0.5 k/uL (0-1.0); Monocytes % (A) 7 %; Neutrophils # (A) 4.7 k/uL (1.3-7.7); Neutrophils % (A) 60 %; Platelet Count 300 k/uL (150-450); RBC 4.44 m/uL (3.80-5.40); RDW 13.2 % (11.5-15.5); WBC 7.9 k/uL (3.8-10.6)
[2023-03-12 08:53] LABS: INR 0.9 (<1.2); Partial Thromboplastin Time 24.7 sec (22.0-30.0); Prothrombin Time 9.8 sec (9.0-12.0)
[2023-03-12 08:59] LABS: ALT 23 U/L (4-34); AST 23 U/L (14-36); African American GFR (CKD) 73 (>60 ml/min/1.73 sqM); Albumin 4.5 g/dL (3.5-5.0); Alkaline Phosphatase 176 U/L (38-126); Anion Gap 10 mmol/L; Blood Urea Nitrogen 15 mg/dL (7-17); Calcium 9.1 mg/dL (8.4-10.2); Carbon Dioxide 26 mmol/L (22-30); Chloride 99 mmol/L (98-107); Glucose 181 mg/dL (74-99); Non-African American GFR(CKD) 64 (>60 ml/min/1.73 sqM); Potassium 4.5 mmol/L (3.5-5.1); Sodium 135 mmol/L (137-145); Total Bilirubin 0.6 mg/dL (0.2-1.3); Total Protein 7.4 g/dL (6.3-8.2)
--- NOTE | 2023-03-12 09:30 | XR ---
EXAMINATION TYPE: XR chest 2V DATE OF EXAM: 03/12/2023 COMPARISON: 02/18/2023 HISTORY: Altered mental status TECHNIQUE: Frontal and lateral views of the chest are obtained. FINDINGS: There is an infiltrate developing in one of the lung bases seen on the lateral view which was not present on the prior study. Findings are consistent with pneumonic infiltrate and clinical co rrelation is recommended. There is no pneumothorax. Heart size normal and the pulmonary vasculature is not congested. The osseous structures are intact. IMPRESSION: Acute infiltrate in the left lung base is best identified on the lateral view. The findi ngs are most consistent with pneumonic infiltrate and clinical correlation follow-up to resolution is recommended.
--- NOTE | 2023-03-12 09:33 | CT ---
EXAMINATION TYPE: CT brain wo con DATE OF EXAM: 03/12/2023 COMPARISON: 02/20/2023 HISTORY: Headache, AMS CT DLP: 1040.4 mGycm Automated exposure control for dose reduction was used. FINDINGS: The ventricles, basal cisterns and sulci over convexities are mildly enlarged consistent with mild ge neralized atrophy, appropriate for the patient's age. There is mild ischemic white matter demyelinati on. There is no acute intra or extra-axial hemorrhage. There is no mass effect or shift of midline struct ures. The posterior fossa is grossly normal. IMPRESSION: Stable degenerative changes but no acute bleed or mass effect. The intraorbital contents appear normal and symmetric. There is a mucous retention cyst or polyp in the left maxillary sinus otherwise the mastoid air cells and sinuses are well aerated. IMPRESSION:
[2023-03-12 09:37] LABS: Glucose,Whole Blood 195 mg/dL (70-110)
[2023-03-12] MEDS ORDERED: ONDANSETRON 4 MG/2 ML VIAL IVP STA (09:37)
[2023-03-12 10:24] LABS: Appearance,Urine Clear (Clear); Bilirubin,Urine Negative (Negative); Blood,Urine Negative (Negative); Color,Urine Colorless; Glucose,Urine (UA) Negative (Negative); Ketones,Urine Negative (Negative); Leukocyte Esterase,Urine Negative (Negative); Nitrite,Urine Negative (Negative); Protein,Urine Trace (Negative); Specific Gravity,Urine 1.004 (1.001-1.035); Urobilinogen,Urine <2.0 mg/dL (<2.0)
[2023-03-12 10:32] LABS: Amphetamine Screen,Urine Not Detected (NotDetected); Barbiturate Screen,Urine Not Detected (NotDetected); Benzodiazepines Screen,Urine Not Detected (NotDetected); Cocaine Screen,Urine Not Detected (NotDetected); Methadone Screen, Urine Not Detected (NotDetected); Opiate Screen,Urine Detected (NotDetected); Oxycodone Screen, Urine Not Detected (NotDetected); Phencyclidine Screen,Urine Not Detected (NotDetected); Tricyclic Antidepressant,Urine Not Detected (NotDetected); Urn Cannabinoid Scrn Not Detected (NotDetected)
[2023-03-12] MEDS ORDERED: NITROGLYCERIN SL TABS 0.4 MG TAB SUBLINGUAL PRN (11:14)
[2023-03-12] MEDS ORDERED: hydrALAZINE HCL 20 MG/ML 1 ML VIAL IVP PRN (12:29)
[2023-03-12] MEDS: NITROGLYCERIN OINT 1 INCH/GM PACKET TOPICAL SCH ×4 (12:36→21:51)
[2023-03-12] MEDS: METOPROLOL TARTRATE 50 MG TAB PO SCH ×2 (13:40→21:47)
[2023-03-12] MEDS: ISOSORBIDE MONONITRATE ER 30 MG TAB.ER.24H PO SCH (13:40)
[2023-03-12] MEDS: LOSARTAN 50 MG TAB PO SCH ×2 (13:40→21:47)
[2023-03-12] MEDS ORDERED: GABAPENTIN 100 MG CAP PO PRN (15:06)
[2023-03-12] MEDS ORDERED: ALPRAZolam 0.25 MG TAB PO PRN (15:06)
[2023-03-12] MEDS ORDERED: SENNOSIDES 8.6 MG TAB PO PRN (15:06)
[2023-03-12 15:36] LABS: Glucose,Whole Blood 220 mg/dL (70-110)
[2023-03-12] MEDS ORDERED: SODIUM CHLORIDE 0.9% 500 ML 500 ML IV ONE (15:37)
[2023-03-12] MEDS: FAMOTIDINE 20 MG TAB PO SCH (16:26)
[2023-03-12] MEDS: LEVOTHYROXINE 88 MCG TAB PO SCH (16:26)
[2023-03-12] MEDS: metFORMIN 500 MG TAB PO SCH (18:19)
[2023-03-12 19:57] LABS: Glucose,Whole Blood 245 mg/dL (70-110)
[2023-03-12] MEDS: CHOLECALCIFEROL 25 MCG (1000 IU) TABLET PO SCH (21:46)
[2023-03-12] MEDS: ALPRAZolam 0.25 MG TAB PO PRN (21:46)
[2023-03-12] MEDS: VIT A,C & E-LUTEIN-MINERALS 1 EACH TAB PO SCH (21:50)
[2023-03-12] MEDS: Acetaminophen-Codeine 300-30mg TAB PO PRN (22:22)
--- NOTE | 2023-03-12 22:32 | HP ---
HISTORY AND PHYSICAL CHIEF COMPLAINT: Headache, change in mental status, chest pain. HISTORY OF PRESENT ILLNESS: An 87-year-old woman with a past medical history of multiple medical problems, was complaining of headache. The patient came to [facility], was found to have accelerated hypertension. The patient also complains of chest pain. The patient was suspected infiltrate on chest x-ray, but there is no history of fever. There is no evidence of pneumonia at this time. The patient also recently admitted with TIA. The patient also has severe hyponatremia previously. The patient is confused, unable to give history, mostly is taken by discussion with the ER physician and review of chart and discussion with staff. PAST MEDICAL HISTORY: Reviewed, include history of TIA, hyponatremia. Rest of the history and rest of the chart is also reviewed. HOME MEDICATIONS: They are not confirmed yet include Glucophage. Doses and rest of medication noted. ALLERGIES: Aspartame, paper tape. FAMILY HISTORY: Could not be taken because of change in mental status. SOCIAL HISTORY: Could not be taken because of change in mental status. REVIEW OF SYSTEMS: Could not be taken because of change in mental status. PHYSICAL EXAMINATION: VITAL SIGNS: Pulse 74, blood pressure 93/70, respirations 20. HEENT: Conjunctivae normal. NECK: No JVD. CARDIOVASCULAR: S1, S2. RESPIRATIONS: Breath sounds diminished at the bases. ABDOMEN: Soft, nontender. LEGS: No edema. NERVOUS SYSTEM: Nonfocal. SKIN: No ulcer, rash, or bleeding. JOINTS: No active deforming arthropathy. LABORATORY DATA: Reviewed. CT scan reviewed. Chest x-ray also reviewed personally. ASSESSMENT: 1. Hypertensive encephalopathy with accelerated hypertension, hypertensive urgency with acute metabolic encephalopathy. 2. History of recent transient ischemic attack. 3. Chest pain for evaluation. 4. Headaches. 5. History of hyponatremia. 6. Diabetes mellitus, type 2. 7. Hyperlipidemia. 8. History of multiple complex medical issues. RECOMMENDATIONS AND DISCUSSION: This is an 87-year-old woman, presented with multiple complex medical issues, we will monitor the patient closely. I would recommend resume the home medications and monitor blood pressure closely. I would also recommend hydralazine p.r.n. Cardiology consultation. Neurology consultation. Complete neurovascular workup. Prognosis extremely guarded because of multiple complex medical issues. This patient required inpatient stay for more than 2 days to elucidate and treat the above-mentioned multiple complex medical issues. MMODL / IJN: [id number] /
[2023-03-13 05:51] LABS: Glucose,Whole Blood 165 mg/dL (70-110)
[2023-03-13] MEDS: NITROGLYCERIN OINT 1 INCH/GM PACKET TOPICAL SCH ×3 (07:38→17:29)
[2023-03-13] MEDS: metFORMIN 500 MG TAB PO SCH (07:39)
[2023-03-13] MEDS: GLIMEPIRIDE 1 MG TAB PO SCH (07:39)
[2023-03-13] MEDS: LEVOTHYROXINE 88 MCG TAB PO SCH (07:39)
[2023-03-13] MEDS: Acetaminophen-Codeine 300-30mg TAB PO PRN (07:53)
[2023-03-13] MEDS ORDERED: ASPIRIN 325 MG TAB PO SCH (09:00)
[2023-03-13] MEDS ORDERED: NON FORMULARY DRUG (Aspirin Ec 81 MG Tablet) PO SCH (09:00)
[2023-03-13] MEDS: METOPROLOL TARTRATE 50 MG TAB PO SCH ×2 (09:10→21:01)
[2023-03-13] MEDS: FAMOTIDINE 20 MG TAB PO SCH (09:10)
[2023-03-13] MEDS: CHOLECALCIFEROL 25 MCG (1000 IU) TABLET PO SCH ×2 (09:10→21:00)
[2023-03-13] MEDS: LOSARTAN 50 MG TAB PO SCH ×2 (09:10→21:00)
[2023-03-13] MEDS: ISOSORBIDE MONONITRATE ER 30 MG TAB.ER.24H PO SCH (09:10)
[2023-03-13] MEDS: FUROSEMIDE 20 MG TAB PO SCH (09:10)
[2023-03-13] MEDS: ASPIRIN 81 MG PO SCH (09:10)
[2023-03-13] MEDS: ATORVASTATIN 40 MG TAB PO SCH (09:10)
[2023-03-13] MEDS: CLOPIDOGREL 75 MG TAB PO SCH (09:10)
[2023-03-13 09:22] LABS: Basophils % (A) 0 %; Eosinophils # (A) 0.2 k/uL (0-0.7); Eosinophils % (A) 3 %; HCT 38.5 % (34.0-46.0); HGB 12.8 gm/dL (11.4-16.0); Lymphocytes # (A) 1.4 k/uL (1.0-4.8); Lymphocytes % (A) 19 %; MCH 30.4 pg (25.0-35.0); MCHC 33.3 g/dL (31.0-37.0); MCV 91.3 fL (80.0-100.0); Mean Platelet Volume 8.3; Monocytes # (A) 0.5 k/uL (0-1.0); Monocytes % (A) 7 %; Neutrophils # (A) 4.9 k/uL (1.3-7.7); Neutrophils % (A) 68 %; Platelet Count 237 k/uL (150-450); RBC 4.21 m/uL (3.80-5.40); RDW 13.5 % (11.5-15.5); WBC 7.2 k/uL (3.8-10.6)
[2023-03-13 09:48] LABS: African American GFR (CKD) 34 (>60 ml/min/1.73 sqM); Amylase 46 U/L (30-110); Anion Gap 12 mmol/L; Blood Urea Nitrogen 23 mg/dL (7-17); Calcium 8.4 mg/dL (8.4-10.2); Carbon Dioxide 22 mmol/L (22-30); Chloride 95 mmol/L (98-107); Glucose 300 mg/dL (74-99); Non-African American GFR(CKD) 30 (>60 ml/min/1.73 sqM); Potassium 4.4 mmol/L (3.5-5.1); Sodium 129 mmol/L (137-145)
[2023-03-13 11:56] LABS: Glucose,Whole Blood 175 mg/dL (70-110)
--- NOTE | 2023-03-13 12:30 | P.CRDCN ---
History of Present Illness Consult date: 03/13/23 Consult reason: chest pain History of present illness: This is an 87-year-old female with past medical history of coronary artery disease with prior stenting, hypertension, hyperlipidemia, diabetes mellitus, carotid stenosis and CVA. The patient follows in the office with Dr. MATT Silva. The patient presented to the emergency room with chest pain on the left side of her chest onset while watching TV. She didn't tell her son until after midnight and then she was brought into the emergency center for further evaluation. Patient had a recent hospitalization and discharge on 02/24 at which time she was evaluated for stroke and was seen by by cardiology and underwent a JAZZY on 02/22 that revealed no intracardiac thrombus, normal LV function, no shunting across the inter-atrial septum. No cardiac source for thromboembolic phenomenon. EKG shows sinus bradycardia with right bundle branch block Chest x-ray shows acute infiltrate in the left lung base most consistent with pneumonic infiltrate. CAT scan of the brain revealed no acute bleed or mass effect labs: WBC 7.2, hemoglobin 12.8, platelet count 238. Sodium 129, potassium 4.4, chloride 95, BUN 23 and creatinine 1.55.troponin negative 3. Echocardiogram 11/10/2022 revealed EF of 55-60%. REVIEW OF SYSTEMS: No fever or chills. No cough or expectoration. No diaphoresis. Patient denies headache, dizziness, blurred vision, double vision. Patient denies any stomach discomfort. No nausea, vomiting. No hematochezia. No hematemesis. Denies any black stools or blood in his stools. Denies dysuria or hematuria. No muscle weakness or numbness. Mild shortness of breath with exertion. + chest pain. PHYSICAL EXAMINATION: This is a 87-year-old female in no apparent distress at the time of my examination. HEENT: Head is atraumatic, normocephalic. Pupils are equal, round. There is no jugular venous distention. No carotid bruit is heard. CHEST EXAMINATION: Lungs are clear to auscultation. No chest wall tenderness is noted on palpation or with deep breathing. HEART EXAMINATION: Heart regular rate and rhythm. S1, S2 heard. Systolic murmur. No gallops or rub .+chest mild tenderness with palpation ABDOMEN: Soft, nontender. Bowel sounds are heard. No organomegaly noted. EXTREMITIES: 1+ peripheral pulses. Mild left lower extremity edema and no calf tenderness noted. NEUROLOGIC EXAMINATION: Patient is awake, alert and oriented x3. FINAL ASSESSMENT AND PLAN: Chest discomfort No indication of acute coronary syndrome Hypertension History of hyperlipidemia History diabetes History of coronary artery disease History of carotid stenosis History of CVA PLAN: continue patient's home cardiac medications No need for echocardiogram patient is cleared for discharge, outpatient follow-up with primary services account manager Dr. MATT Silva Nurse practitioner note has been reviewed, I agree with the documented findings and plan of care. Patient was seen and examined. 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 , [place]-HEAR[place] AIDS, WEAKNESS RIGHT SIDE -USES WALKER WITH WHEELS. Last Myocardial Infarction Date:: 09/2018 History of Any Multi-Drug Resistant Organisms: None Reported Past Surgical History: Back Surgery, Breast Surgery, Heart Catheterization With Stent, Hysterectomy, Orthopedic Surgery, Tubal Ligation Additional Past Surgical History / Comment(s): PCI with a total of 7 stents, low back surgery, L breast benign bx, R rotator cuff repair, R eye cataract, multiple laser eye surgeries, bilateral eye stents-R one fell out, thyroidectomy d/t nodules, temporal artery bx, cervical and lumbar injections. Past Anesthesia/Blood Transfusion Reactions: Previous Problems w/ Anesthesia, Postoperative Nausea & Vomiting (PONV) Additional Past Anesthesia/Blood Transfusion Reaction / Comment(s): hard to wake up Date of Last Stent Placement:: 10/19/18 Past Psychological History: Anxiety Additional Psychological History / Comment(s): Son Geoffrey lives with her. She is visually impaired, reads with a lighted magnifying screen. She signs her name occasionally. Her sons take her to appts. Smoking Status: Never smoker Past Alcohol Use History: None Reported Past Drug Use History: None Reported - Past Family History Mother Family Medical History: Myocardial Infarction (ID) Additional Family Medical History / Comment(s): MOTHER OF ID AGE 57YRS. Brother(s) Family Medical History: Myocardial Infarction (ID) Additional Family Medical History / Comment(s): BROTHER OF A ID AGE 60YRS. Father Family Medical History: No Reported History Additional Family Medical History / Comment(s): FATHER LIVED TO BE 90YRS OLD. Medications and Allergies Home Medications Medication Instructions Recorded Confirmed Type Vits A,C,E/Lutein/Minerals 1 tab PO HS 05/03/16 03/12/23 History [Ocuvite with Lutein Tablet] Levothyroxine Sodium [Synthroid] 88 mcg PO DAILY 05/31/17 03/12/23 History ALPRAZolam [Xanax] 0.25 mg PO DAILY PRN #30 06/05/17 03/12/23 Rx Glimepiride [Amaryl] 1 mg PO AC-BRKFST 04/28/18 03/12/23 History metFORMIN HCL [Glucophage] 500 mg PO AC-BID 04/28/18 03/12/23 History Atorvastatin [Lipitor] 40 mg PO DAILY 03/26/21 03/12/23 History Aspirin EC [Ecotrin Low Dose] 81 mg PO DAILY 07/19/21 03/12/23 History Famotidine 20 mg PO BID 07/19/21 03/12/23 History Isosorbide Mononitrate ER [Imdur] 30 mg PO DAILY 07/19/21 03/12/23 History Metoprolol Tartrate [Lopressor] 50 mg PO BID 07/19/21 03/12/23 History Cholecalciferol [Vitamin D3 (25 25 mcg PO BID 08/19/22 03/12/23 History Mcg = 1000 Iu)] Sennosides [Senokot] 8.6 mg PO BID PRN #20 tab 08/24/22 03/12/23 Rx Clopidogrel [Plavix] 75 mg PO DAILY 11/09/22 03/12/23 History Acetaminophen-Codeine 300-30mg 1 tab PO Q6H PRN 12/19/22 03/12/23 History [Tylenol w/codeine #3] Furosemide [Lasix] 20 mg PO DAILY 02/18/23 03/12/23 History Gabapentin [Neurontin] 100 mg PO BID PRN #0 02/23/23 03/12/23 Rx Losartan [Cozaar] 50 mg PO BID 03/12/23 03/12/23 History Allergies Allergy/AdvReac Type Severity Reaction Status Date / Time aspartame Allergy Severe Anaphylaxis- Verified 03/12/23 12:42 swelling throat & tongue PAPER TAPE Allergy Unknown Rash/Hives Uncoded 01/09/23 10:29 Physical Exam Vitals: Vital Signs Temp Pulse Pulse Resp BP BP Pulse Ox 03/13/23 09:09 98.0 F 59 L 18 148/71 97 03/13/23 08:38 97 03/13/23 02:00 111/68 03/12/23 20:00 97.8 F 64 16 135/74 03/12/23 17:30 59 L 16 137/64 03/12/23 16:29 57 L 15 112/61 100 03/12/23 15:59 58 L 95/57 03/12/23 15:51 60 16 88/50 99 03/12/23 15:29 60 14 86/44 98 03/12/23 15:17 62 82/46 03/12/23 15:15 65 97/59 03/12/23 14:48 69 14 109/48 98 03/12/23 14:20 82 13 124/64 99 03/12/23 13:56 97.7 F 79 19 167/65 97 03/12/23 13:53 78 18 159/61 100 03/12/23 13:45 80 15 173/64 99 03/12/23 13:34 79 17 153/64 100 03/12/23 12:28 97.4 F L 74 20 193/70 98 03/12/23 11:55 66 16 176/59 96 03/12/23 11:29 94 L 03/12/23 11:00 68 21 154/57 93 L FiO2 03/13/23 09:09 03/13/23 08:38 21 03/13/23 02:00 03/12/23 20:00 03/12/23 17:30 03/12/23 16:29 03/12/23 15:59 03/12/23 15:51 03/12/23 15:29 03/12/23 15:17 03/12/23 15:15 03/12/23 14:48 03/12/23 14:20 03/12/23 13:56 03/12/23 13:53 03/12/23 13:45 03/12/23 13:34 03/12/23 12:28 03/12/23 11:55 03/12/23 11:29 03/12/23 11:00 Intake and Output 03/12/23 03/13/23 03/13/23 22:59 06:59 14:59 Intake Total 300 236 Balance 300 236 Intake: Oral 300 236 Other: Voiding Method External Catheter Toilet # Voids 2 1 Weight 86.183 kg Results 03/13/23 08:55 03/13/23 08:55 Cardiac Enzymes 03/12/23 03/12/23 Range/Units 11:45 15:06 Troponin I <0.012 <0.012 (0.000-0.034) ng/mL CBC 03/13/23 Range/Units 08:55 WBC 7.2 (3.8-10.6) k/uL RBC 4.21 (3.80-5.40) m/uL Hgb 12.8 (11.4-16.0) gm/dL Hct 38.5 (34.0-46.0) % Plt Count 237 (150-450) k/uL Current Medications Generic Name Dose Route Start Last Admin Trade Name Freq PRN Reason Stop Dose Admin Acetaminophen/Codeine Phosphate 1 each 03/12/23 15:06 03/13/23 07:53 Acetaminophen-Codeine 300-30mg Tab PO 1 each Q6H PRN Administration Pain Alprazolam 0.25 mg 03/12/23 15:06 03/12/23 21:46 Alprazolam 0.25 Mg Tab PO 0.25 mg TID PRN Administration Anxiety Aspirin 81 mg 03/13/23 09:00 03/13/23 09:10 Aspirin 81 Mg PO 81 mg DAILY ANDREW Administration Atorvastatin Calcium 40 mg 03/13/23 09:00 03/13/23 09:10 Atorvastatin 40 Mg Tab PO 40 mg DAILY ANDREW Administration Cholecalciferol 25 mcg 03/12/23 21:00 03/13/23 09:10 Cholecalciferol 25 Mcg (1000 Iu) Tablet PO 25 mcg BID ANDREW Administration Clopidogrel Bisulfate 75 mg 03/13/23 09:00 03/13/23 09:10 Clopidogrel 75 Mg Tab PO 75 mg DAILY ANDREW Administration Famotidine 20 mg 03/12/23 16:00 03/13/23 09:10 Famotidine 20 Mg Tab PO 20 mg DAILY ANDREW Administration Furosemide 20 mg 03/13/23 09:00 03/13/23 09:10 Furosemide 20 Mg Tab PO 20 mg DAILY ANDREW Administration Gabapentin 100 mg 03/12/23 15:06 Gabapentin 100 Mg Cap PO BID PRN NERVE PAIN Glimepiride 1 mg 03/13/23 07:30 03/13/23 07:39 Glimepiride 1 Mg Tab PO 1 mg AC-BRKFST [facility] Administration Hydralazine HCl 10 mg 03/12/23 12:29 03/12/23 12:36 Hydralazine Hcl 20 Mg/Ml 1 Ml Vial IVP 10 mg Q4HR PRN Administration Blood Pressure - High Isosorbide Mononitrate 30 mg 03/12/23 13:30 03/13/23 09:10 Isosorbide Mononitrate Er 30 Mg Tab.Er.24h PO 30 mg DAILY ANDREW Administration Levothyroxine Sodium 88 mcg 03/12/23 15:15 03/13/23 07:39 Levothyroxine 88 Mcg Tab PO 88 mcg DAILY@0730 [facility] Administration Losartan Potassium 50 mg 03/12/23 13:30 03/13/23 09:10 Losartan 50 Mg Tab PO 50 mg BID ANDREW Administration Metformin HCl 500 mg 03/12/23 17:30 03/13/23 07:39 Metformin 500 Mg Tab PO 500 mg AC-BID ANDREW Administration Metoprolol Tartrate 50 mg 03/12/23 13:30 03/13/23 09:10 Metoprolol Tartrate 50 Mg Tab PO 50 mg BID ANDREW Administration Multivitamins/Minerals 1 each 03/12/23 21:00 03/12/23 21:50 Vit A,C & [id number] 1 Each Tab PO Not Given HS ANDREW Nitroglycerin 0.4 mg 03/12/23 11:14 Nitroglycerin Sl Tabs 0.4 Mg Tab SUBLINGUAL Q5M PRN Chest Pain Nitroglycerin 1 inch 03/12/23 12:00 03/13/23 07:38 Nitroglycerin Oint 1 Inch/Gm Packet TOPICAL Not Given Q6HR [facility] Senna 8.6 mg 03/12/23 15:06 Sennosides 8.6 Mg Tab PO BID PRN Constipation Intake and Output 03/12/23 03/13/23 03/13/23 22:59 06:59 14:59 Intake Total 300 236 Balance 300 236 Intake: Oral 300 236 Other: Voiding Method External Catheter Toilet # Voids 2 1 Weight 86.183 kg 03/13/23 08:55 03/12/23 08:31
[2023-03-13] MEDS ORDERED: DEXTROSE 50% SYRINGE 50 ML IVP PRN ×2 (16:03)
--- NOTE | 2023-03-13 16:04 | P.PN ---
Subjective Progress Note Date: 03/13/23 This is a 87-year-old female who was recently admitted with hypertension and headache. Patient is being followed by cardiology and awaiting neurology consult. Patient reports headache was associated with high blood pressure and was uncontrolled. Patient was recently hospitalized with chest pain along with full neurological workup and was just evaluated by ophthalmology outpatient. Patient is currently afebrile with no reports of chest pain or shortness of breath. Patient reports to feeling fatigued otherwise feeling okay. Blood sugars have been controlled and will continue with Accu-Cheks before meals and at bedtime. Encouraged to increase activity as tolerated and encouraged oral intake. Review of systems: Constitutional: No reports of fatigue, fever, or chills Cardiovascular: No reports of chest pain or palpitations Respiratory: No reports of shortness of breath or cough GI: No reports of nausea, no reports of vomiting, no diarrhea : No reports of dysuria or retention Neurovascular: No reports of generalized weakness All medications have been reviewed PHYSICAL EXAMINATION: GENERAL: The patient is alert and oriented x4, Well developed, well nourished. Obese HEENT: Pupils are round and equally reacting to light. EOMI. no scleral icterus. No conjunctival pallor. Normocephalic, atraumatic. No pharyngeal erythema. No thyromegaly. CARDIOVASCULAR: S1 and S2 muffled PULMONARY: diminished breath sounds bilaterally with no wheezing or rhonchi noted. ABDOMEN: soft. Nontender on exam. obese. non-distended, normoactive bowel sounds. No palpable organomegaly. MUSCULOSKELETAL: No joint swelling or deformity. EXTREMITIES: No cyanosis, clubbing, or pedal edema. NEUROLOGICAL: Gross neurological examination did not reveal any focal deficits. Diffuse weakness SKIN: No rashes. Assessment: Hypertensive encephalopathy with accelerated hypertension, hypertension urgency with acute metabolic encephalopathy, improved History of recent TIA Chest pain, ruled out ACS Headache most likely secondary to hypertension History of hyponatremia Diabetes mellitus, type II Hyperlipidemia GI prophylaxis DVT prophylaxis Full code Plan: Recommend to continue with current medications and management with cardiology following. Neurology was consulted for confusion although patient is baseline and not confused. Patient is to follow-up with ophthalmology as well as neur ology and cardiology outpatient. Recommend monitoring overnight for blood pressure control and increased activity as tolerated and will likely discharge in 24 hours. Cardiology has evaluated the patient and cleared the patient for discharge. Patient with chronic hyponatremia and sodium level 129 today, will follow-up with repeat labs Probable discharge in 24 hours The impression and plan of care has been dictated by Kesha Velásquez, nurse practitioner as directed. Dr. Derian MD I have performed a history and examination and MDM of this patient, discussed the same with the dictator, and agree with the dictator's assessment and plan as written ,documented as a scribe. Based on total visit time, I have performed more than 50% of the visit. Any additional findings or plans will be noted. Objective - Vital Signs Vital signs: Vital Signs Temp 98.0 F 03/13/23 09:09 Pulse 59 L 03/13/23 09:09 Resp 18 03/13/23 09:09 BP 148/71 03/13/23 09:09 Pulse Ox 97 03/13/23 09:09 FiO2 21 03/13/23 08:38 Intake & Output 03/12/23 03/13/23 03/13/23 18:59 06:59 18:59 Intake Total 300 246 Output Total 0 Balance 300 246 Weight 86.183 kg Intake: IV 10 Invasive Line 2 10 Oral 300 236 Output: Emesis 0 Other: Voiding Method External Catheter Toilet Toilet # Voids 1 1 - Labs CBC & Chem 7: 03/13/23 08:55 03/13/23 08:55 Labs: Abnormal Lab Results - Last 24 Hours (Table) 03/12/23 03/12/23 03/12/23 Range/Units 10:07 15:33 19:50 Sodium (137-145) mmol/L Chloride (98-107) mmol/L BUN (7-17) mg/dL Creatinine (0.52-1.04) mg/dL Glucose (74-99) mg/dL POC Glucose (mg/dL) 220 H 245 H (70-110) mg/dL Urine Protein Trace H (Negative) Urine Opiates Screen Detected H (NotDetected) 03/13/23 03/13/23 Range/Units 05:49 08:55 Sodium 129 L (137-145) mmol/L Chloride 95 L (98-107) mmol/L BUN 23 H (7-17) mg/dL Creatinine 1.55 H (0.52-1.04) mg/dL Glucose 300 H (74-99) mg/dL POC Glucose (mg/dL) 165 H (70-110) mg/dL Urine Protein (Negative) Urine Opiates Screen (NotDetected)
[2023-03-13 16:09] LABS: Chol/HDL Ratio 2.35 Ratio; LDL Cholesterol,Calculated 44.7 mg/dL (0.0-131.0)
[2023-03-13 16:24] LABS: C Reactive Protein 1.5 mg/dL (<1.0)
[2023-03-13 16:54] LABS: Glucose,Whole Blood 138 mg/dL (70-110)
[2023-03-13] MEDS: INSULIN ASPART (NovoLOG) 100 UNIT/ML VIAL SQ SCH ×2 (17:29→21:01)
[2023-03-13 19:43] LABS: Glucose,Whole Blood 181 mg/dL (70-110)
[2023-03-13] MEDS: VIT A,C & E-LUTEIN-MINERALS 1 EACH TAB PO SCH (21:00)
[2023-03-13] MEDS: ALPRAZolam 0.25 MG TAB PO PRN (21:02)
--- NOTE | 2023-03-13 21:43 | P.CNNES ---
History of Present Illness Consult date: 03/13/23 Requesting physician: Marshall Alcantara Reason for Consult: Change in mental status History of Present Illness: Patient is a 87-year-old right-handed female with history of multiple strokes in the past, known to neurology service from recent admission on 02/20/2023 came to the hospital yesterday at 7:53 AM for headache. Patient states that she came because she was feeling sick, severe pain in the head, which was holocephalic and also pain in both ears. She was also having pain in the chest. This was the worst headache that she ever had, and she was also short of breath, holding her head, crying and also complaining of chest pain. The symptoms started on Monday night while she was having supper, watching TV, she started feeling nauseous, sick to stomach. Thereafter she started having the headache. She was holding the ears, even the hearing aids was hurting therefore she took it out. She was having throbbing in the eyes. Patient denies any other focal symptoms like slurred speech, facial droop, loss of baseline vision, incoordination or any other strokelike symptoms. Vital signs on arrival blood pressure 202/73, pulse rate 63 temperature 98.1. Repeat blood pressure 216/81. Blood test shows normal CBC, PT/PTT, sodium 135, potassium 4.5, normal renal and hepatic panel, troponin. UA is negative. Urine drug screen positive for opiate. EKG shows sinus rhythm, chest x-ray with acute infiltrate in the left lung base is best identified on the lateral view. The findings are most consistent with pneumonic infiltrate and clinical correlation follow-up to resolution is recommended. CT head showed stable degenerative changes but no acute bleed or mass effect. There is a mucus retention cyst or polyp in the left maxillary sinus otherwise the mastoid air cells and sinuses are well aerated. I personally reviewed CT head, agree with the findings. Patient was recently hospitalized for an acute episode of unresponsiveness followed by right hemiparesis. Symptoms completely resolved, with residual right hemiparesis related to previous stroke that happened 6 years ago. MRI of the brain revealed small focus of acute/subacute CVA right parietal lobe cortex. 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 Patient has history of stroke with residual right hemiparesis that occurred in May about 5 or 6 years ago. Patient has chronic weakness of the right hand, also drags the right leg. This is her baseline. 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 Patient claims that she has history of 4 strokes in the past, with his residual weakness on the right side. Patient states that she walks with a walker at home. On review of records, patient had an abnormal MRI brain 05/26/2020 showing 5 mm area of abnormal signal within the left high parietal cortex suspicious for a tiny area of acute ischemia. Patient had an MRI of the brain 06/01/2017 showing 9 mm area of acute ischemia within the left thalamus. On my review, the CVA reported 05/26/2020 MRI appears artifactual. Patient lives by herself, and her son who is 68 years of age, also lives with her. The other son is very close by. Workup performed recent hospitalization showed: * MRI of the brain revealed small focus of acute/subacute CVA right parietal lobe cortex. I personally reviewed MRI, I agree with the findings. Apparently patient had worsening of her baseline hemiparesis on the ipsi lateral side of this stroke, therefore uncertain if symptomatic. * Patient has multiple (4) strokes in the past. She states that she had stroke in the left eye, then involve the right arm, then the left arm and now this being the fourth event. * CTA of the neck and head showed no flow-limiting stenosis bilateral carotid bifurcations. Mild atheromatous plaquing is present at the carotid bifurcations. Normal [place]. * JAZZY performed 02/22/2023 showed no intracardiac thrombus. Normal left- ventricular function, no evidence of shunting across the interatrial septum. Left atrium appears enlarged. Aortic root is normal. No embolic source. * Patient had undergone 30 day event monitoring to rule out paroxysmal atrial fibrillation. * Routine EEG was performed, which was abnormal due to mild background slowing consistent with encephalopathy. Superimposed intermittent bitemporal dysrhythmic delta slowing, left more than right, suggestive of focal cortical neuronal dysfunction. Some occasional left temporal sharply contoured waves were seen which did not appear clearly epileptiform. If your suspicion for seizures is high, suggest prolonged EEG for further evaluation. * Prolonged EEG revealed mildly abnormal study. No seizures were recorded. No epileptiform activity was seen. The occasional focal left frontotemporal theta a range slowing is not epileptiform in nature. The findings indicate mild focal cerebral dysfunction involving the corresponding region. * Patient was not prescribed antiepileptic medication after discussing with the family. Review of Systems Constitutional: Denies chills, Denies fever Eyes: right loss of peripheral vision (Macular degeneration right eye.), left loss of vision (From stroke in the past), bilateral blurred vision, denies pain Ears: bilateral: decreased hearing (Uses hearing aids.), earache, deny: tinnitus Cardiovascular: Reports chest pain, Denies shortness of breath Respiratory: Denies cough, Denies excessive sputum Gastrointestinal: Reports nausea, Reports vomiting, Denies abdominal pain, Denies diarrhea Genitourinary: Denies dysuria, Denies hematuria Musculoskeletal: Reports low back pain, Reports neck pain Integumentary: Denies pruritus, Denies rash Neurological: Reports as per HPI Psychiatric: Reports anxiety, Reports depression Endocrine: Reports fatigue, Denies weight change Hematologic/Lymphatic: Reports easy bruising, Denies easy bleeding Past Medical History Past Medical History: Coronary Artery Disease (CAD), CVA/TIA, Diabetes Mellitus, Eye Disorder, GERD/Reflux, Hearing Disorder / Deafness, Hyperlipidemia, Hypertension, Myocardial Infarction (MT), Osteoarthritis (OA), Thyroid Disorder Additional Past Medical History / Comment(s): EPISODES OF ANGIOEDEMA, NIDDM TYPE II, 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 , [place]-HEARING AIDS, WEAKNESS RIGHT SIDE -USES WALKER WITH WHEELS. Last Myocardial Infarction Date:: 09/2018 History of Any Multi-Drug Resistant Organisms: None Reported Past Surgical History: Back Surgery, Breast Surgery, Heart Catheterization With Stent, Hysterectomy, Orthopedic Surgery, Tubal Ligation Additional Past Surgical History / Comment(s): PCI with a total of 7 stents, low back surgery, L breast benign bx, R rotator cuff repair, R eye cataract, multiple laser eye surgeries, bilateral eye stents-R one fell out, thyroidectomy d/t nodules, temporal artery bx, cervical and lumbar injections. Past Anesthesia/Blood Transfusion Reactions: Previous Problems w/ Anesthesia, Postoperative Nausea & Vomiting (PONV) Additional Past Anesthesia/Blood Transfusion Reaction / Comment(s): hard to wake up Date of Last Stent Placement:: 10/19/18 Past Psychological History: Anxiety Additional Psychological History / Comment(s): Son Geoffrey lives with her. She is visually impaired, reads with a lighted magnifying screen. She signs her name occasionally. Her sons take her to appts. Smoking Status: Never smoker Past Alcohol Use History: None Reported Past Drug Use History: None Reported - Past Family History Mother Family Medical History: Myocardial Infarction (MT) Additional Family Medical History / Comment(s): MOTHER OF MT AGE 57YRS. Brother(s) Family Medical History: Myocardial Infarction (MT) Additional Family Medical History / Comment(s): BROTHER OF A MT AGE 60YRS. Father Family Medical History: No Reported History Additional Family Medical History / Comment(s): FATHER LIVED TO BE 90YRS OLD. Medications and Allergies Home Medications Medication Instructions Recorded Confirmed Type Vits A,C,E/Lutein/Minerals 1 tab PO HS 05/03/16 03/12/23 History [Ocuvite with Lutein Tablet] Levothyroxine Sodium [Synthroid] 88 mcg PO DAILY 05/31/17 03/12/23 History ALPRAZolam [Xanax] 0.25 mg PO DAILY PRN #30 06/05/17 03/12/23 Rx Glimepiride [Amaryl] 1 mg PO AC-BRKFST 04/28/18 03/12/23 History metFORMIN HCL [Glucophage] 500 mg PO AC-BID 04/28/18 03/12/23 History Atorvastatin [Lipitor] 40 mg PO DAILY 03/26/21 03/12/23 History Aspirin EC [Ecotrin Low Dose] 81 mg PO DAILY 07/19/21 03/12/23 History Famotidine 20 mg PO BID 07/19/21 03/12/23 History Isosorbide Mononitrate ER [Imdur] 30 mg PO DAILY 07/19/21 03/12/23 History Metoprolol Tartrate [Lopressor] 50 mg PO BID 07/19/21 03/12/23 History Cholecalciferol [Vitamin D3 (25 25 mcg PO BID 08/19/22 03/12/23 History Mcg = 1000 Iu)] Sennosides [Senokot] 8.6 mg PO BID PRN #20 tab 08/24/22 03/12/23 Rx Clopidogrel [Plavix] 75 mg PO DAILY 11/09/22 03/12/23 History Acetaminophen-Codeine 300-30mg 1 tab PO Q6H PRN 12/19/22 03/12/23 History [Tylenol w/codeine #3] Furosemide [Lasix] 20 mg PO DAILY 02/18/23 03/12/23 History Gabapentin [Neurontin] 100 mg PO BID PRN #0 02/23/23 03/12/23 Rx Losartan [Cozaar] 50 mg PO BID 03/12/23 03/12/23 History Allergies Allergy/AdvReac Type Severity Reaction Status Date / Time aspartame Allergy Severe Anaphylaxis- Verified 03/12/23 12:42 swelling throat & tongue PAPER TAPE Allergy Unknown Rash/Hives Uncoded 01/09/23 10:29 Physical Examination - Vital Signs Vital Signs: Vital Signs Temp Pulse Pulse Resp BP BP Pulse Ox 03/13/23 09:09 98.0 F 59 L 18 148/71 97 03/13/23 08:38 97 03/13/23 02:00 111/68 03/12/23 20:00 97.8 F 64 16 135/74 03/12/23 17:30 59 L 16 137/64 03/12/23 16:29 57 L 15 112/61 100 03/12/23 15:59 58 L 95/57 03/12/23 15:51 60 16 88/50 99 03/12/23 15:29 60 14 86/44 98 03/12/23 15:17 62 82/46 03/12/23 15:15 65 97/59 03/12/23 14:48 69 14 109/48 98 03/12/23 14:20 82 13 124/64 99 03/12/23 13:56 97.7 F 79 19 167/65 97 03/12/23 13:53 78 18 159/61 100 03/12/23 13:45 80 15 173/64 99 03/12/23 13:34 79 17 153/64 100 03/12/23 12:28 97.4 F L 74 20 193/70 98 03/12/23 11:55 66 16 176/59 96 03/12/23 11:29 94 L FiO2 03/13/23 09:09 03/13/23 08:38 21 03/13/23 02:00 03/12/23 20:00 03/12/23 17:30 03/12/23 16:29 03/12/23 15:59 03/12/23 15:51 03/12/23 15:29 03/12/23 15:17 03/12/23 15:15 03/12/23 14:48 03/12/23 14:20 03/12/23 13:56 03/12/23 13:53 03/12/23 13:45 03/12/23 13:34 03/12/23 12:28 03/12/23 11:55 03/12/23 11:29 Intake and Output 03/12/23 03/13/23 03/13/23 22:59 06:59 14:59 Intake Total 300 246 Balance 300 246 Intake: IV 10 Invasive Line 2 10 Oral 300 236 Other: Voiding Method External Catheter Toilet Toilet # Voids 2 1 Weight 86.183 kg Patient is an elderly female, who is laying in the bed, in no acute distress. Patient is alert awake, oriented to time place and person. Speech and language functions are normal. Patient can name and repeat very well. No aphasia or dysarthria. Attention, concentration and fund of knowledge is perfectly normal, even better for age. On cranial nerve examination, pupils are equal, round and reacting to light, patient is blind in the left eye. Patient's visual tsai reveals left hemianopia. Apparently it appears patient had full visual field on the right on the past exam. However patient is not complaining of any difficulty or worsening of her vision, therefore I do not believe there is any worsening of her baseline vision. Patient does have macular degeneration in the right eye as well. Extraocular muscles are intact with no nystagmus. Face is symmetric, tongue protrudes to the midline. Palatal elevation and sensation normal, hearing is decreased but fairly well-formed routine conversation with her hearing aids and shoulder shrug normal, facial sensation normal. On muscle strength testing, patient has right arm drift, which partly is related to right shoulder pain. Her biceps, triceps appears equal. (Right/left) biceps 4-/5, hip flexion 3+4-/5, ankle dorsiflexion 5/5. Right arm is spastic, with slight inward dystonic foot. Deep tendon reflexes are symmetric, very hypoactive and plantars are flat. Sensory to touch is decreased on the right side as compared to the left. Also neglects the right side. Cerebellar function showed no ataxia for [id number] testing the left, but very shaky on the right. Tone is increased in right side of the body and bulk of muscles normal. Gait deferred.. On general examination, there is no carotid bruit or murmur, S1-S2 audible. Chest is clear on consultation. Abdomen is soft nontender. No organomegaly, bowel sounds present. Peripheral pulses are present. No edema. Results - Laboratory Findings CBC and BMP: 03/13/23 08:55 03/13/23 08:55 Abnormal Lab Findings: Abnormal Labs 03/12/23 03/12/23 03/12/23 08:31 09:36 10:07 Sodium 135 L Chloride BUN Creatinine Glucose 181 H POC Glucose (mg/dL) 195 H Alkaline Phosphatase 176 H Urine Protein Trace H Urine Opiates Screen Detected H 03/12/23 03/12/23 03/13/23 15:33 19:50 05:49 Sodium Chloride BUN Creatinine Glucose POC Glucose (mg/dL) 220 H 245 H 165 H Alkaline Phosphatase Urine Protein Urine Opiates Screen 03/13/23 08:55 Sodium 129 L Chloride 95 L BUN 23 H Creatinine 1.55 H Glucose 300 H POC Glucose (mg/dL) Alkaline Phosphatase Urine Protein Urine Opiates Screen Assessment and Plan Assessment: * Acute cephalgia, with bilateral ear pain, likely due to hypertensive urgency. Patient's blood pressure on arrival was 202/73. * Hypertensive urgency, now improved. * Possible pneumonia * Recent acute episode of unresponsiveness on 02/18/2023, followed by right hemiparesis. MRI brain revealed small focus of acute/subacute CVA right parietal lobe cortex. 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 Cardiology has seen the patient, adjusted her blood pressure medications. Her most recent blood pressure is 130/52. The headache also has remarkably improved. * CT head reveals no acute process. Paranasal sinuses appear mostly clear. Polyp in the left maxillary sinus, but does not appear to be the cause of the headache. * Patient denies any other focal symptoms. Patient's neurological examination is essentially unchanged. * Check ESR and CRP, rule out temporal arteritis. Also check B12, folate. * Continue aspirin 81 mg, Plavix 75 mg. * Lipid panel with cholesterol 140, LDL 44, HDL 59 and triglycerides 178. Continue Lipitor 40 mg daily. * Chest x-ray showed possible pneumonia. We will defer to IM. * DVT prophylaxis: Start heparin 5000 units subcu every 12 hours. * Spoke to patient's son in detail. * Dr. Luis Gardner will resume neurology service in the morning. Thank you for the consult. Time with Patient: Greater than 30
[2023-03-14 06:04] LABS: Glucose,Whole Blood 179 mg/dL (70-110)
[2023-03-14] MEDS: NITROGLYCERIN OINT 1 INCH/GM PACKET TOPICAL SCH ×4 (06:26→17:40)
[2023-03-14] MEDS: INSULIN ASPART (NovoLOG) 100 UNIT/ML VIAL SQ SCH ×4 (06:27→20:34)
[2023-03-14] MEDS: GLIMEPIRIDE 1 MG TAB PO SCH (07:08)
[2023-03-14] MEDS: LEVOTHYROXINE 88 MCG TAB PO SCH (07:08)
[2023-03-14] MEDS: LOSARTAN 50 MG TAB PO SCH ×2 (09:14→20:34)
[2023-03-14] MEDS: CLOPIDOGREL 75 MG TAB PO SCH (09:14)
[2023-03-14] MEDS: ASPIRIN 81 MG PO SCH (09:15)
[2023-03-14] MEDS: ISOSORBIDE MONONITRATE ER 30 MG TAB.ER.24H PO SCH (09:15)
[2023-03-14] MEDS: FUROSEMIDE 20 MG TAB PO SCH (09:15)
[2023-03-14] MEDS: CHOLECALCIFEROL 25 MCG (1000 IU) TABLET PO SCH ×2 (09:15→20:34)
[2023-03-14] MEDS: ATORVASTATIN 40 MG TAB PO SCH (09:15)
[2023-03-14] MEDS: METOPROLOL TARTRATE 50 MG TAB PO SCH ×2 (09:15→20:34)
[2023-03-14] MEDS: FAMOTIDINE 20 MG TAB PO SCH (09:17)
[2023-03-14] MEDS: HEPARIN SODIUM,PORCINE/PF 5,000 UNIT/0.5 ML SYRINGE SQ SCH ×2 (09:17→20:34)
[2023-03-14 12:01] LABS: Glucose,Whole Blood 161 mg/dL (70-110)
[2023-03-14 13:53] LABS: Glucose,Whole Blood 229 mg/dL (70-110)
--- NOTE | 2023-03-14 15:29 | P.PN ---
Subjective Progress Note Date: 03/14/23 This is an 87-year-old female with past medical history of coronary artery disease with prior stenting, hypertension, hyperlipidemia, diabetes mellitus, carotid stenosis and CVA. The patient follows in the office with Dr. MATT Silva. The patient presented to the emergency room with chest pain on the left side of her chest onset while watching TV. She didn't tell her son until after midnight and then she was brought into the emergency center for further evaluation. Patient had a recent hospitalization and discharge on 02/24 at which time she was evaluated for stroke and was seen by by cardiology and underwent a JAZZY on 02/22 that revealed no intracardiac thrombus, normal LV function, no shunting across the inter-atrial septum. No cardiac source for thromboembolic phenomenon. EKG shows sinus bradycardia with right bundle branch block Chest x-ray shows acute infiltrate in the left lung base most consistent with pneumonic infiltrate. CAT scan of the brain revealed no acute bleed or mass effect labs: WBC 7.2, hemoglobin 12.8, platelet count 238. Sodium 129, potassium 4.4, chloride 95, BUN 23 and creatinine 1.55.troponin negative 3. Echocardiogram 11/10/2022 revealed EF of 55-60%. 03/14 Patient states she has had chest pain on and off but again this is tender and reproducible. She continues to have lower extremity edema which is chronic. She is seen today sitting up in her recliner and eating her lunch. She appears to be in no acute distress. Blood pressure 153/54, heart rate in the 50s and 60s. Pulse ox 98% on room air. PHYSICAL EXAMINATION: This is a 87-year-old female in no apparent distress at the time of my examination. HEENT: Head is atraumatic, normocephalic. Pupils are equal, round. There is no jugular venous distention. No carotid bruit is heard. CHEST EXAMINATION: Lungs are clear to auscultation. No chest wall tenderness is noted on palpation or with deep breathing. HEART EXAMINATION: Heart regular rate and rhythm. S1, S2 heard. Systolic murmur. No gallops or rub .+chest mild tenderness with palpation ABDOMEN: Soft, nontender. EXTREMITIES: 1+ peripheral pulses. Mild left lower extremity edema and no calf tenderness noted. NEUROLOGIC EXAMINATION: Patient is awake, alert and oriented x3. FINAL ASSESSMENT AND PLAN: Chest discomfort No indication of acute coronary syndrome Hypertension History of hyperlipidemia History diabetes History of coronary artery disease History of carotid stenosis History of CVA PLAN: continue patient's home cardiac medications No need for echocardiogram patient is cleared for discharge, outpatient follow-up with primary campus receptionist Dr. MATT Silva Cardiology will sign off this case and follow on an as-needed basis. Please reconsult for any new concerns. Nurse practitioner note has been reviewed, I agree with the documented findings and plan of care. Patient was seen and examined. Objective - Vital Signs Vital signs: Vital Signs Temp 98.4 F 03/14/23 08:47 Pulse 52 L 03/14/23 11:42 Resp 16 03/14/23 11:42 BP 153/54 03/14/23 11:42 Pulse Ox 98 03/14/23 11:42 FiO2 21 03/14/23 07:59 Intake & Output 03/13/23 03/14/23 03/14/23 18:59 06:59 18:59 Intake Total 1094 190 Balance 1094 190 Intake: IV 20 10 Invasive Line 2 20 10 Oral 1074 180 Other: Voiding Method Toilet Toilet Toilet # Voids 2 3 - Labs CBC & Chem 7: 03/13/23 08:55 03/13/23 08:55 Labs: Abnormal Lab Results - Last 24 Hours (Table) 03/13/23 03/13/23 03/13/23 Range/Units 08:55 15:39 15:39 ESR 30 H (0-20) mm/hr POC Glucose (mg/dL) (70-110) mg/dL C-Reactive Protein 1.5 H (<1.0) mg/dL Triglycerides 178.00 H (0.00-149.00) mg/dL 03/13/23 03/13/23 03/14/23 Range/Units 16:53 19:42 06:02 ESR (0-20) mm/hr POC Glucose (mg/dL) 138 H 181 H 179 H (70-110) mg/dL C-Reactive Protein (<1.0) mg/dL Triglycerides (0.00-149.00) mg/dL 03/14/23 Range/Units 11:59 ESR (0-20) mm/hr POC Glucose (mg/dL) 161 H (70-110) mg/dL C-Reactive Protein (<1.0) mg/dL Triglycerides (0.00-149.00) mg/dL
[2023-03-14 16:41] LABS: Glucose,Whole Blood 132 mg/dL (70-110)
[2023-03-14 19:33] LABS: Glucose,Whole Blood 162 mg/dL (70-110)
[2023-03-15] MEDS: VIT A,C & E-LUTEIN-MINERALS 1 EACH TAB PO SCH (01:01)
[2023-03-15] MEDS: NITROGLYCERIN OINT 1 INCH/GM PACKET TOPICAL SCH ×3 (01:03→10:19)
[2023-03-15 05:56] LABS: Glucose,Whole Blood 191 mg/dL (70-110)
[2023-03-15] MEDS: INSULIN ASPART (NovoLOG) 100 UNIT/ML VIAL SQ SCH ×2 (06:08→11:35)
[2023-03-15] MEDS: LEVOTHYROXINE 88 MCG TAB PO SCH (06:08)
[2023-03-15] MEDS: GLIMEPIRIDE 1 MG TAB PO SCH (06:08)
--- NOTE | 2023-03-15 07:10 | P.PN ---
Subjective Progress Note Date: 03/14/23 This is a 87-year-old female who was recently admitted with hypertension and headache. Patient is being followed by cardiology and awaiting neurology consult. Patient reports headache was associated with high blood pressure and was uncontrolled. Patient was recently hospitalized with chest pain along with full neurological workup and was just evaluated by ophthalmology outpatient. Patient is currently afebrile with no reports of chest pain or shortness of breath. Patient reports to feeling fatigued otherwise feeling okay. Blood sugars have been controlled and will continue with Accu-Cheks before meals and at bedtime. Encouraged to increase activity as tolerated and encouraged oral intake. 03/14/2023 Patient is seen in follow-up today with son at the bedside reporting she is not feeling well stating she felt her blood sugar was elevated and her blood pressure was uncontrolled and elevated. Patient having some increased anxiety and does use Xanax as needed. Vital signs were stable at the time and blood sugar was just over 200. Patient had just eaten pasta prior to this event. Patient is afebrile with no reports of chest pain or shortness of breath. Patient is tearful on exam due to this episode of feeling hypertensive. Patient has been seen and evaluated by cardiology and will continue current regimen and recommend outpatient follow-up. Plans for discharge home as she lives with her son. Review of systems: Constitutional: No reports of fatigue, fever, or chills Cardiovascular: No reports of chest pain or palpitations Respiratory: No reports of shortness of breath or cough GI: No reports of nausea, no reports of vomiting, no diarrhea : No reports of dysuria or retention Neurovascular: No reports of generalized weakness All medications have been reviewed PHYSICAL EXAMINATION: GENERAL: The patient is alert and oriented x4, anxious on exam and tearful. Well developed, well nourished. Obese HEENT: Pupils are round and equally reacting to light. EOMI. no scleral icterus. No conjunctival pallor. Normocephalic, atraumatic. No pharyngeal erythema. No thyromegaly. CARDIOVASCULAR: S1 and S2 muffled PULMONARY: diminished breath sounds bilaterally with no wheezing or rhonchi noted. ABDOMEN: soft. Nontender on exam. obese. non-distended, normoactive bowel sounds. No palpable organomegaly. MUSCULOSKELETAL: No joint swelling or deformity. EXTREMITIES: No cyanosis, clubbing, or pedal edema. NEUROLOGICAL: Gross neurological examination did not reveal any focal deficits. Diffuse weakness SKIN: No rashes. Assessment: Hypertensive encephalopathy with accelerated hypertension, hypertension urgency with acute metabolic encephalopathy, improved History of recent TIA Chest pain, ruled out ACS Headache most likely secondary to hypertension History of hyponatremia Diabetes mellitus, type II Anxiety Hyperlipidemia GI prophylaxis DVT prophylaxis Full code Plan: Recommend to continue with current medications and management with cardiology following. Neurology has evaluated the patient recommending outpatient neurology and cardiology follow-up. Recommend monitoring overnight for blood pressure control as well as blood sugar control as patient reported feeling increased fatigue and unwell and felt her blood sugar and her blood pressure were high. Blood pressure was checked and was 153/54. Blood sugar was checked and was 229 just after eating pasta. Patient is extremely anxious and tearful on exam due to feeling unwell during that episode. Patient does have as needed Xanax Encouraged increased activity as tolerated and will likely discharge in 24 hours. Cardiology has evaluated the patient and cleared the patient for discharge. Probable discharge in 24 hours The impression and plan of care has been dictated by Kesha Velásquez, nurse practitioner as directed. Dr. Derian MD I have performed a history and examination and MDM of this patient, discussed the same with the dictator, and agree with the dictator's assessment and plan as written ,documented as a scribe. Based on total visit time, I have performed more than 50% of the visit. Any additional findings or plans will be noted. Objective - Vital Signs Vital signs: Vital Signs Temp 98.4 F 03/14/23 15:38 Pulse 70 03/14/23 15:38 Resp 16 03/14/23 15:38 BP 153/70 03/14/23 15:38 Pulse Ox 96 03/14/23 15:38 FiO2 21 03/14/23 07:59 Intake & Output 03/13/23 03/14/23 03/14/23 18:59 06:59 18:59 Intake Total 1094 380 Balance 1094 380 Intake: IV 20 20 Invasive Line 2 20 20 Oral 1074 360 Other: Voiding Method Toilet Toilet Toilet # Voids 2 3 - Labs CBC & Chem 7: 03/13/23 08:55 03/13/23 08:55 Labs: Abnormal Lab Results - Last 24 Hours (Table) 03/13/23 03/13/23 03/13/23 Range/Units 08:55 15:39 15:39 ESR 30 H (0-20) mm/hr POC Glucose (mg/dL) (70-110) mg/dL C-Reactive Protein 1.5 H (<1.0) mg/dL Triglycerides 178.00 H (0.00-149.00) mg/dL 03/13/23 03/13/23 03/14/23 Range/Units 16:53 19:42 06:02 ESR (0-20) mm/hr POC Glucose (mg/dL) 138 H 181 H 179 H (70-110) mg/dL C-Reactive Protein (<1.0) mg/dL Triglycerides (0.00-149.00) mg/dL 03/14/23 03/14/23 Range/Units 11:59 13:52 ESR (0-20) mm/hr POC Glucose (mg/dL) 161 H 229 H (70-110) mg/dL C-Reactive Protein (<1.0) mg/dL Triglycerides (0.00-149.00) mg/dL
[2023-03-15 07:50] VITALS: TEMP 98.1
[2023-03-15] MEDS: LOSARTAN 50 MG TAB PO SCH (07:53)
[2023-03-15] MEDS: FUROSEMIDE 20 MG TAB PO SCH (07:53)
[2023-03-15] MEDS: CHOLECALCIFEROL 25 MCG (1000 IU) TABLET PO SCH (07:53)
[2023-03-15] MEDS: ASPIRIN 81 MG PO SCH (07:53)
[2023-03-15] MEDS: METOPROLOL TARTRATE 50 MG TAB PO SCH (07:54)
[2023-03-15] MEDS: HEPARIN SODIUM,PORCINE/PF 5,000 UNIT/0.5 ML SYRINGE SQ SCH (07:54)
[2023-03-15] MEDS: ATORVASTATIN 40 MG TAB PO SCH (07:54)
[2023-03-15] MEDS: CLOPIDOGREL 75 MG TAB PO SCH (07:54)
[2023-03-15] MEDS: FAMOTIDINE 20 MG TAB PO SCH (07:54)
[2023-03-15] MEDS: ISOSORBIDE MONONITRATE ER 30 MG TAB.ER.24H PO SCH (07:54)
[2023-03-15 11:28] LABS: Glucose,Whole Blood 167 mg/dL (70-110)
[2023-03-15 12:08] VITALS: BP 159/66; PULSE 57; RESP 16
[2023-03-15 12:54] LABS: Potassium 4.6 mmol/L (3.5-5.1)
[2023-03-15 12:55] LABS: African American GFR (CKD) 71 (>60 ml/min/1.73 sqM); Anion Gap 10 mmol/L; Blood Urea Nitrogen 23 mg/dL (7-17); Calcium 9.5 mg/dL (8.4-10.2); Carbon Dioxide 28 mmol/L (22-30); Chloride 95 mmol/L (98-107); Glucose 174 mg/dL (74-99); Non-African American GFR(CKD) 62 (>60 ml/min/1.73 sqM); Sodium 133 mmol/L (137-145)
--- NOTE | 2023-03-15 14:03 | P.PN ---
Subjective Progress Note Date: 03/15/23 This is an 87-year-old female with past medical history of coronary artery disease with prior stenting, hypertension, hyperlipidemia, diabetes mellitus, carotid stenosis and CVA. The patient follows in the office with Dr. MATT Silva. The patient presented to the emergency room with chest pain on the left side of her chest onset while watching TV. She didn't tell her son until after midnight and then she was brought into the emergency center for further evaluation. Patient had a recent hospitalization and discharge on 02/24 at which time she was evaluated for stroke and was seen by by cardiology and underwent a JAZZY on 02/22 that revealed no intracardiac thrombus, normal LV function, no shunting across the inter-atrial septum. No cardiac source for thromboembolic phenomenon. EKG shows sinus bradycardia with right bundle branch block Chest x-ray shows acute infiltrate in the left lung base most consistent with pneumonic infiltrate. CAT scan of the brain revealed no acute bleed or mass effect labs: WBC 7.2, hemoglobin 12.8, platelet count 238. Sodium 129, potassium 4.4, chloride 95, BUN 23 and creatinine 1.55.troponin negative 3. Echocardiogram 11/10/2022 revealed EF of 55-60%. 03/14 Patient states she has had chest pain on and off but again this is tender and reproducible. She continues to have lower extremity edema which is chronic. She is seen today sitting up in her recliner and eating her lunch. She appears to be in no acute distress. Blood pressure 153/54, heart rate in the 50s and 60s. Pulse ox 98% on room air. 03/15 Patient is seen today in follow-up. Telemetry is sinus rhythm. Heart rate is in the 50s and 60s, blood pressure 159/66, pulse ox 94% on room air. Repeat blood work reveals sodium 133, potassium 4.6, BUN 23 creatinine 0.84. Patient is scheduled to transferred to [facility] floor today. No new concerns. PHYSICAL EXAMINATION: This is a 87-year-old female in no apparent distress at the time of my examination. HEENT: Head is atraumatic, normocephalic. Pupils are equal, round. There is no jugular venous distention. No carotid bruit is heard. CHEST EXAMINATION: Lungs are clear to auscultation. No chest wall tenderness is noted on palpation or with deep breathing. HEART EXAMINATION: Heart regular rate and rhythm. S1, S2 heard. Systolic murmu r. No gallops or rub .+chest mild tenderness with palpation ABDOMEN: Soft, nontender. EXTREMITIES: 1+ peripheral pulses. Mild left lower extremity edema and no calf tenderness noted. NEUROLOGIC EXAMINATION: Patient is awake, alert and oriented x3. FINAL ASSESSMENT AND PLAN: Chest discomfort No indication of acute coronary syndrome Hypertension History of hyperlipidemia History diabetes History of coronary artery disease History of carotid stenosis History of CVA PLAN: continue patient's home cardiac medications No need for echocardiogram patient is cleared for discharge, outpatient follow-up with primary oceanographic meteorologist Dr. MATT Silva Cardiology will sign off this case and follow on an as-needed basis. Please reconsult for any new concerns. Nurse practitioner note has been reviewed, I agree with the documented findings and plan of care. Patient was seen and examined. Objective - Vital Signs Vital signs: Vital Signs Temp 98.1 F 03/15/23 07:00 Pulse 62 03/15/23 07:00 Resp 18 03/15/23 07:00 BP 197/79 03/15/23 07:00 Pulse Ox 98 03/15/23 07:00 FiO2 21 03/14/23 07:59 Intake & Output 03/14/23 03/15/23 03/15/23 18:59 06:59 18:59 Intake Total 498 0 Balance 498 0 Intake: IV 20 Invasive Line 2 20 Oral 478 0 Other: Voiding Method Toilet Toilet # Voids 2 1 - Labs CBC & Chem 7: 03/13/23 08:55 03/15/23 12:16 Labs: Abnormal Lab Results - Last 24 Hours (Table) 03/14/23 03/14/23 03/14/23 Range/Units 11:59 13:52 16:33 POC Glucose (mg/dL) 161 H 229 H 132 H (70-110) mg/dL 03/14/23 03/15/23 03/15/23 Range/Units 19:30 05:49 11:24 POC Glucose (mg/dL) 162 H 191 H 167 H (70-110) mg/dL
[2023-03-15] MEDS ORDERED: SPIRONOLACTONE 25 MG TAB PO SCH (15:00)
--- NOTE | 2023-03-15 16:41 | P.PN ---
Subjective Progress Note Date: 03/15/23 I'm seeing the patient for the first time during this admission. Please refer to Dr. Vigil's note for further details. It seems the patient was having some ear pain and was felt due to hypertensive urgency and currently she feels that her ear pain has resolved. She denies of any new neurological issues at. She stated that she had history of stroke in the past with residual right-sided weakness. She denies of any new neurological issues. Objective - Vital Signs Vital signs: Vital Signs Temp 98.1 F 03/15/23 07:00 Pulse 57 L 03/15/23 12:06 Resp 16 03/15/23 12:06 BP 159/66 03/15/23 12:06 Pulse Ox 94 L 03/15/23 12:06 FiO2 21 03/14/23 07:59 Intake & Output 03/14/23 03/15/23 03/15/23 18:59 06:59 18:59 Intake Total 498 480 Balance 498 480 Intake: IV 20 Invasive Line 2 20 Oral 478 480 Other: Voiding Method Toilet Toilet # Voids 2 1 - Exam General as the patient is sitting on recliner chair and eating. She does not a ppear in acute distress. Neuro: Patient is awake alert oriented to self place and time. The is following simple commands. No aphasia. 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 No dysarthria. Motor is the strength as left in all extremity above gravity but has weakness over the right side which is consistent with the patient's history of stroke - Labs CBC & Chem 7: 03/13/23 08:55 03/15/23 12:16 Labs: Abnormal Lab Results - Last 24 Hours (Table) 03/14/23 03/14/23 03/15/23 Range/Units 16:33 19:30 05:49 Sodium (137-145) mmol/L Chloride (98-107) mmol/L BUN (7-17) mg/dL Glucose (74-99) mg/dL POC Glucose (mg/dL) 132 H 162 H 191 H (70-110) mg/dL 03/15/23 03/15/23 Range/Units 11:24 12:16 Sodium 133 L (137-145) mmol/L Chloride 95 L (98-107) mmol/L BUN 23 H (7-17) mg/dL Glucose 174 H (74-99) mg/dL POC Glucose (mg/dL) 167 H (70-110) mg/dL Assessment and Plan Assessment: * Acute cephalgia, with bilateral ear pain, likely due to hypertensive urgency. Patient's blood pressure on arrival was 202/73. Has slightly elevated ESR 30 but not significant enough and her symptoms has resolved, so highly doubt temporal arteritis. * Hypertensive urgency, now improved. * Possible pneumonia * Recent acute episode of unresponsiveness on 02/18/2023, followed by right hemiparesis. MRI brain revealed small focus of acute/subacute CVA right parietal lobe cortex. 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 Cardiology has seen the patient, adjusted her blood pressure medications. Her most recent blood pressure is 130/52. The headache also has remarkably improved. * CT head reveals no acute process. Paranasal sinuses appear mostly clear. Polyp in the left maxillary sinus, but does not appear to be the cause of the headache. * Patient denies any other focal symptoms. Patient's neurological examination is essentially unchanged. * ESR: 30 (normal is 0-20) and CRP 1.5. B12: 541, folate 17.7 * On aspirin 81 mg, Plavix 75 mg. * Lipid panel with cholesterol 140, LDL 44, HDL 59 and triglycerides 178. Continue Lipitor 40 mg daily. * Chest x-ray showed possible pneumonia. We will defer to IM. * DVT prophylaxis: On heparin 5000 units subcu every 12 hours. * Spoke to patient's son in detail who is at bedside. Otherwise, no additional neurological work-up. Please notify neurology team if any further concerns. Time with Patient: Less than 30
--- NOTE | 2023-03-15 21:08 | P.DS ---
Providers Date of admission: 03/12/23 11:14 Expected date of discharge: 03/15/23 Attending physician: Marshall Alcantara Consults: 03/12/23 11:14 Consult Physician Urgent Consulting Provider: [facility] Consult Reason/Comments: Chest pain Do you want consulting provider notified?: Yes 03/12/23 12:15 Consult Physician Routine Consulting Provider: Ailyn Lucas Consult Reason/Comments: change in mental status Do you want consulting provider notified?: Yes 03/15/23 14:21 Consult Physician Routine Consulting Provider: Krishan Clark Consult Reason/Comments: htn Do you want consulting provider notified?: Already Contacted Primary care physician: Anthony Cameron Hospital Course: Final diagnosis Hypertensive encephalopathy with accelerated hypertension, hypertension urgency with acute metabolic encephalopathy, improved History of recent TIA Chest pain, ruled out ACS Headache most likely secondary to hypertension History of hyponatremia Diabetes mellitus, type II Anxiety Hyperlipidemia GI prophylaxis DVT prophylaxis Full code Discharge disposition Patient is being discharged in a stable condition with guarded prognosis to home with home care . Patient will follow-up with Dr. Cameron in the outpatient setting upon discharge. Patient has scheduled appointment in the next 1-2 days. Patient is to continue with current cardiac medications as mentioned below and close outpatient follow-up with cardiology as scheduled. Total time taken is greater than 35 minutes. Hospital course This is a 87-year-old female who was recently admitted with chest pain and hypertension uncontrolled with concerns of altered mentation and being closely monitored. Multiple medical consultations following including neurology and cardiology and patient is being started on Aldactone and will continue on other mentioned medications below. Patient to follow-up with cardiology in one week. Patient has been cleared by consultations for discharge. Please refer to consultation notes for further HPI. Patient also experiencing extreme episodes of anxiety. Patient does have as needed Xanax. Repeat labs today within normal limits kidney functions are improved and patient will continue on home medications. Currently no reports of chest pain, shortness of breath, or palpitations. Patient is afebrile. No reports of nausea or vomiting and patient is tolerating diet. Patient will be discharged home today. Physical exam: Gen: This is a 87-year-old female who is awake, alert and oriented 3, well- developed, well-nourished, obese, anxious HEENT: Head is atraumatic, normocephalic. Pupils equal, round. Sclerae is anicteric. NECK: Supple. No JVD. No lymphadenopathy. No thyromegaly. LUNGS: Clear to auscultation. No wheezes or rhonchi. No intercostal ret ractions. HEART: S1, S2 are muffled ABDOMEN: Soft. Bowel sounds are present. No masses. No tenderness. EXTREMITIES: No pedal edema. No calf tenderness. NEUROLOGICAL: Patient is awake, alert and oriented x3. Cranial nerves 2 through 12 are grossly intact. Please refer to medication reconciliation sheet for a list of medications. The impression and plan of care has been dictated by Kesha Velásquez, Nurse Practitioner as directed. Dr. Derian MD I have performed a history and examination and MDM of this patient, discussed the same with the dictator, and agree with the dictator's assessment and plan as written ,documented as a scribe. Based on total visit time, I have performed more than 50% of the visit. Patient Condition at Discharge: Fair Plan - Discharge Summary Discharge Rx Participant: No New Discharge Prescriptions: Continue Vits A,C,E/Lutein/Minerals [Ocuvite with Lutein Tablet] 1 tab PO HS Levothyroxine Sodium [Synthroid] 88 mcg PO DAILY ALPRAZolam [Xanax] 0.25 mg PO DAILY PRN #30 PRN Reason: Anxiety metFORMIN HCL [Glucophage] 500 mg PO AC-BID Glimepiride [Amaryl] 1 mg PO AC-BRKFST Atorvastatin [Lipitor] 40 mg PO DAILY Metoprolol Tartrate [Lopressor] 50 mg PO BID Aspirin EC [Ecotrin Low Dose] 81 mg PO DAILY Cholecalciferol [Vitamin D3 (25 Mcg = 1000 Iu)] 25 mcg PO BID Gabapentin [Neurontin] 100 mg PO BID PRN #0 PRN Reason: NERVE PAIN Losartan [Cozaar] 50 mg PO BID Famotidine 20 mg PO BID Isosorbide Mononitrate ER [Imdur] 30 mg PO DAILY Sennosides [Senokot] 8.6 mg PO BID PRN #20 tab PRN Reason: Constipation Clopidogrel [Plavix] 75 mg PO DAILY Acetaminophen-Codeine 300-30mg [Tylenol w/codeine #3] 1 tab PO Q6H PRN PRN Reason: Pain Furosemide [Lasix] 20 mg PO DAILY Discharge Medication List Vits A,C,E/Lutein/Minerals [Ocuvite with Lutein Tablet] 1 tab PO HS 05/03/16 [History] Levothyroxine Sodium [Synthroid] 88 mcg PO DAILY 05/31/17 [History] ALPRAZolam [Xanax] 0.25 mg PO DAILY PRN #30 06/05/17 [Rx] Glimepiride [Amaryl] 1 mg PO AC-BRKFST 04/28/18 [History] metFORMIN HCL [Glucophage] 500 mg PO AC-BID 04/28/18 [History] Atorvastatin [Lipitor] 40 mg PO DAILY 03/26/21 [History] Aspirin EC [Ecotrin Low Dose] 81 mg PO DAILY 07/19/21 [History] Famotidine 20 mg PO BID 07/19/21 [History] Isosorbide Mononitrate ER [Imdur] 30 mg PO DAILY 07/19/21 [History] Metoprolol Tartrate [Lopressor] 50 mg PO BID 07/19/21 [History] Cholecalciferol [Vitamin D3 (25 Mcg = 1000 Iu)] 25 mcg PO BID 08/19/22 [History] Sennosides [Senokot] 8.6 mg PO BID PRN #20 tab 08/24/22 [Rx] Clopidogrel [Plavix] 75 mg PO DAILY 11/09/22 [History] Acetaminophen-Codeine 300-30mg [Tylenol w/codeine #3] 1 tab PO Q6H PRN 12/19/22 [History] Furosemide [Lasix] 20 mg PO DAILY 02/18/23 [History] Gabapentin [Neurontin] 100 mg PO BID PRN #0 02/23/23 [Rx] Losartan [Cozaar] 50 mg PO BID 03/12/23 [History] Follow up Appointment(s)/Referral(s): Anthony Cameron MD [Primary Care Provider] - 03/17/23 10:40 am Les Silva MD [STAFF PHYSICIAN] - 03/20/23 3:15 pm (This appointment is at the [address] [place] [address] office.) [facility] Visiting Nurse, [NON-STAFF] - Patient Instructions/Handouts: Hypertensive Crisis (IP) Activity/Diet/Wound Care/Special Instructions: Activity Limited until follow-up Follow-up with primary care provider this week Follow-up cardiology in 1-2 weeks Continue with your outpatient follow-up with ophthalmology as well as neurology Discharge Disposition: HOME WITH HOME HEALTH SERVICES
== END 2023-03-15 15:32 | disposition home health service (06) | DRG 304 ==
LOC: EC 07:53 → 6NMEDSUR 11:14 → 3SCARD 17:11
PROVIDERS: ADMIT Hospitalist; ATTEND Hospitalist
DX: I16.0 Hypertensive urgency (principal); G93.41 Metabolic encephalopathy; I67.4 Hypertensive encephalopathy; I69.351 Hemiplegia and hemiparesis following cerebral infarction affecting right dominant side; E87.1 Hypo-osmolality and hyponatremia; I25.10 Atherosclerotic heart disease of native coronary artery without angina pectoris; I10 Essential (primary) hypertension; E78.5 Hyperlipidemia, unspecified; R07.9 Chest pain, unspecified; H35.30 Unspecified macular degeneration; G43.909 Migraine, unspecified, not intractable, without status migrainosus; R00.1 Bradycardia, unspecified; H91.90 Unspecified hearing loss, unspecified ear; I45.10 Unspecified right bundle-branch block; H54.8 Legal blindness, as defined in USA; I25.2 Old myocardial infarction; E03.9 Hypothyroidism, unspecified; F41.9 Anxiety disorder, unspecified; G93.89 Other specified disorders of brain; Z79.890 Hormone replacement therapy; Z90.710 Acquired absence of both cervix and uterus; Z98.51 Tubal ligation status; M19.041 Primary osteoarthritis, right hand; M19.042 Primary osteoarthritis, left hand; Z79.02 Long term (current) use of antithrombotics/antiplatelets; Z79.82 Long term (current) use of aspirin; Z79.84 Long term (current) use of oral hypoglycemic drugs; Z82.49 Family history of ischemic heart disease and other diseases of the circulatory system; Z79.899 Other long term (current) drug therapy; Z98.41 Cataract extraction status, right eye; Z95.5 Presence of coronary angioplasty implant and graft; Z91.048 Other nonmedicinal substance allergy status
CPT/HCPCS: 36415; 70450; 71046; 80048; 80053; 80061; 80306; 81003; 82150; 82607; 82746; 84484; 85025; 85610; 85652; 85730; 86140; 93005; 94760; 96374; 96375; 99285

== ENCOUNTER 2023-04-02 04:02 | Observation (INO) | payer MEDICARE, BC ==
[2023-04-02] MEDS ORDERED: hydrALAZINE HCL 20 MG/ML 1 ML VIAL IVP STA (04:53)
[2023-04-02] MEDS ORDERED: ASPIRIN 81 MG PO STA (04:53)
[2023-04-02 05:00] LABS: Basophils # (A) 0.1 k/uL (0-0.2); Basophils % (A) 1 %; Eosinophils # (A) 0.3 k/uL (0-0.7); Eosinophils % (A) 4 %; HCT 37.7 % (34.0-46.0); HGB 13.1 gm/dL (11.4-16.0); Lymphocytes # (A) 3.4 k/uL (1.0-4.8); Lymphocytes % (A) 43 %; MCH 30.8 pg (25.0-35.0); MCHC 34.8 g/dL (31.0-37.0); MCV 88.6 fL (80.0-100.0); Mean Platelet Volume 7.8; Monocytes # (A) 0.6 k/uL (0-1.0); Monocytes % (A) 7 %; Neutrophils # (A) 3.4 k/uL (1.3-7.7); Neutrophils % (A) 43 %; Platelet Count 255 k/uL (150-450); RBC 4.26 m/uL (3.80-5.40); RDW 13.1 % (11.5-15.5); WBC 7.9 k/uL (3.8-10.6)
[2023-04-02 05:11] LABS: INR 0.9 (<1.2); Partial Thromboplastin Time 24.4 sec (22.0-30.0); Prothrombin Time 9.7 sec (9.0-12.0)
[2023-04-02 05:39] LABS: ALT 19 U/L (4-34); AST 23 U/L (14-36); African American GFR (CKD) 68 (>60 ml/min/1.73 sqM); Albumin 4.3 g/dL (3.5-5.0); Alkaline Phosphatase 144 U/L (38-126); Anion Gap 10 mmol/L; Blood Urea Nitrogen 23 mg/dL (7-17); Carbon Dioxide 23 mmol/L (22-30); Chloride 99 mmol/L (98-107); Glucose 132 mg/dL (74-99); Magnesium 1.6 mg/dL (1.6-2.3); Non-African American GFR(CKD) 59 (>60 ml/min/1.73 sqM); Potassium 4.5 mmol/L (3.5-5.1); Sodium 132 mmol/L (137-145); Total Bilirubin 0.5 mg/dL (0.2-1.3); Total Protein 6.8 g/dL (6.3-8.2)
[2023-04-02] MEDS ORDERED: ALPRAZolam 0.25 MG TAB PO STA (05:48)
[2023-04-02] MEDS ORDERED: MORPHINE SULFATE 4 MG/ML SYRINGE IVP STA (06:14)
[2023-04-02] MEDS ORDERED: MORPHINE SULFATE 4 MG/ML SYRINGE IV PRN (06:15)
[2023-04-02] MEDS ORDERED: NALOXONE 0.4 MG/ML 1 ML VIAL IV PRN (06:15)
--- NOTE | 2023-04-02 06:23 | ED ---
General Adult HPI - General Chief complaint: Chest Pain Stated complaint: Chest Pain Time Seen by Provider: 04/02/23 04:42 Source: patient, family, RN notes reviewed, old records reviewed Mode of arrival: wheelchair Limitations: no limitations - History of Present Illness Initial comments: Patient is an 87-year-old female who presents emergency Department complaining of chest pain. She is also complaining of generalized body pain. Chest pain began at approximately 11 PM last night. She attempted to take Tylenol at home with minimal improvement. Denies any diaphoresis, nausea, vomiting. Has been seen here previously for hypertension. Has a history of cardiac stents. Patient states that the chest pain is resolved. It did radiate to her left shoulder when it was present. However currently now she is complaining of intermittent bilateral leg pain for me. Endorses a mild headache as well. Is hypertensive on arrival. States she is compliant with medications. Denies any fevers, chills, cough, done pain. No other acute complaints at this time. He does have a history of anxiety. Does appear intermittently anxious. Presents for further evaluation at this time. Patient's family is at bedside is also anxious.When I ask, patient states she does get these similar pains on a daily or weekly basis, however she was concerned Lakeisha regarding them which is why she presents for further evaluation. - Related Data Home Medications Medication Instructions Recorded Confirmed Vits A,C,E/Lutein/Minerals 1 tab PO HS 05/03/16 03/12/23 [Ocuvite with Lutein Tablet] Levothyroxine Sodium [Synthroid] 88 mcg PO DAILY 05/31/17 03/12/23 Glimepiride [Amaryl] 1 mg PO AC-BRKFST 04/28/18 03/12/23 metFORMIN HCL [Glucophage] 500 mg PO AC-BID 04/28/18 03/12/23 Atorvastatin [Lipitor] 40 mg PO DAILY 03/26/21 03/12/23 Aspirin EC [Ecotrin Low Dose] 81 mg PO DAILY 07/19/21 03/12/23 Famotidine 20 mg PO BID 07/19/21 03/12/23 Isosorbide Mononitrate ER [Imdur] 30 mg PO DAILY 07/19/21 03/12/23 Metoprolol Tartrate [Lopressor] 50 mg PO BID 07/19/21 03/12/23 Cholecalciferol [Vitamin D3 (25 25 mcg PO BID 08/19/22 03/12/23 Mcg = 1000 Iu)] Clopidogrel [Plavix] 75 mg PO DAILY 11/09/22 03/12/23 Acetaminophen-Codeine 300-30mg 1 tab PO Q6H PRN 12/19/22 03/12/23 [Tylenol w/codeine #3] Furosemide [Lasix] 20 mg PO DAILY 02/18/23 03/12/23 Losartan [Cozaar] 50 mg PO BID 03/12/23 03/12/23 Previous Rx's Medication Instructions Recorded ALPRAZolam [Xanax] 0.25 mg PO DAILY PRN #30 06/05/17 Sennosides [Senokot] 8.6 mg PO BID PRN #20 tab 08/24/22 Gabapentin [Neurontin] 100 mg PO BID PRN #0 02/23/23 Allergies Allergy/AdvReac Type Severity Reaction Status Date / Time aspartame Allergy Severe Anaphylaxis- Verified 03/12/23 12:42 swelling throat & tongue PAPER TAPE Allergy Unknown Rash/Hives Uncoded 01/09/23 10:29 Review of Systems ROS Statement: Those systems with pertinent positive or pertinent negative responses have been documented in the HPI. Review of Systems: CONST: Denies fever EYES: Denies blurry vision ENT: Denies nasal congestion C/V: Denies current chest pain. RESP: Denies shortness of breath GI: Denies abdominal pain : Denies dysuria SKIN: Denies rash. MSK: she endorses bilateral leg pain NEURO: Denies headache ROS Other: All systems not noted in ROS Statement are negative. 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 , [place]-HEARING AIDS, WEAKNESS RIGHT SIDE -USES WALKER WITH WHEELS. Last Myocardial Infarction Date:: 09/2018 History of Any Multi-Drug Resistant Organisms: None Reported Past Surgical History: Back Surgery, Breast Surgery, Heart Catheterization With Stent, Hysterectomy, Orthopedic Surgery, Tubal Ligation Additional Past Surgical History / Comment(s): PCI with a total of 7 stents, low back surgery, L breast benign bx, R rotator cuff repair, R eye cataract, multiple laser eye surgeries, bilateral eye stents-R one fell out, thyroidectomy d/t nodules, temporal artery bx, cervical and lumbar injections. Past Anesthesia/Blood Transfusion Reactions: Previous Problems w/ Anesthesia, Postoperative Nausea & Vomiting (PONV) Additional Past Anesthesia/Blood Transfusion Reaction / Comment(s): hard to wake up Date of Last Stent Placement:: 10/19/18 Past Psychological History: Anxiety Smoking Status: Never smoker Past Alcohol Use History: None Reported Past Drug Use History: None Reported - Past Family History Mother Family Medical History: Myocardial Infarction ([place]) Additional Family Medical History / Comment(s): MOTHER OF [place] AGE 57YRS. Brother(s) Family Medical History: Myocardial Infarction ([place]) Additional Family Medical History / Comment(s): BROTHER OF A [place] AGE 60YRS. Father Family Medical History: No Reported History Additional Family Medical History / Comment(s): FATHER LIVED TO BE 90YRS OLD. General Exam - General Exam Comments Initial Comments: General: Appears in no acute distress. HEAD: Normal with no signs of head trauma. EYES: PERRLA, EOMI, conjunctiva normal, no discharge. ENT: Hearing grossly intact, normal oropharynx. RESPIRATORY: Clear breath sounds bilaterally. No wheezes, rales, or rhonchi. C/V: Regular rate and rhythm. S1 and S2 auscultated, no edema, peripheral pulses 2+ and intact throughout ABD: Abd is soft, nontender, nondistended EXT: Normal range of motion, no obvious deformity SKIN: No rashes or lesions observed on exposed skin. NEURO: Alert and oriented 4. No focal deficits. Patient is hard of hearing but otherwise GCS 15. NIH is 0. Limitations: no limitations Course Vital Signs 04/02/23 04/02/23 04:09 05:32 Temperature 97.8 F Pulse Rate 56 L 56 L Respiratory 18 16 Rate Blood Pressure 202/80 144/53 O2 Sat by Pulse 95 98 Oximetry Medical Decision Making - Medical Decision Making Was pt. sent in by a medical professional or institution (MARJ Flores, DIGITAL PRODUCTION MANAGER, urgent care, hospital, or care home...) When possible be specific @ -No Did you speak to anyone other than the patient for history (EMS, parent, family, police, friend...)? What history was obtained from this source @ -No Did you review nursing and triage notes (agree or disagree)? Why? @ -I reviewed and agree with nursing and triage notes Were old charts reviewed (outside hosp., previous admission, EMS record, old EKG, old radiological studies, urgent care reports/EKG's, care home records)? Report findings @ -Old charts reviewed from February 2023 Differential Diagnosis (chest pain, altered mental status, abdominal pain women, abdominal pain men, vaginal bleeding, weakness, fever, dyspnea, syncope, headache, dizziness, GI bleed, back pain, seizure, CVA, palpatations, mental health, musculoskeletal)? @ -Differential Chest Pain: Stable Angina, Unstable Angina, STEMI, NSTEMI Aortic Dissection, Pneumothorax, Musculoskeletal, Esophageal Spasm GERD, Cholecystitis, Pancreatitis, Zoster, this is not meant to be an all-inclusive list. EKG interpreted by me (3pts min.). @ -As above X-rays interpreted by me (1pt min.). @ -Chest x-ray reveals no obvious acute cardio pulmonary process. CT interpreted by me (1pt min.). @ -None done U/S interpreted by me (1pt. min.). @ -None done What testing was considered but not performed or refused? (CT, X-rays, U/S, labs)? Why? @ -None What meds were considered but not given or refused? Why? @ -None Did you discuss the management of the patient with other professionals (professionals i.e. MARJ Flores, DIGITAL PRODUCTION MANAGER, lab, RT, psych nurse, social media specialist, strap setter, teacher, mail officer, skilled nursing case manager)? Give summary @ -Discussed with the admitting physician, Dr. Munoz who accepted the admission. Was smoking cessation discussed for >3mins.? @ -No Was critical care preformed (if so, how long)? @ -No Were there social determinants of health that impacted care today? How? (Homelessness, low income, unemployed, alcoholism, drug addiction, transportation, low edu. Level, literacy, decrease access to med. care, assisted, rehab)? @ -No Was there de-escalation of care discussed even if they declined (Discuss DNR or withdrawal of care, Hospice)? DNR status @ -No What co-morbidities impacted this encounter? (DM, HTN, Smoking, COPD, CAD, Cancer, CVA, ARF, Chemo, Hep., AIDS, mental health diagnosis, sleep apnea, morbid obesity)? @ -None Was patient admitted / discharged? Hospital course, mention meds given and route, prescriptions, significant lab abnormalities, going to OR and other pertinent info. @ -Based on the patient's presentation and physical exam, I'm concerned for possible cardiac etiology for the patient at this time. Does have a significant cardiac history. Vital signs within acceptable limits except for hypertension. She will be given hydralazine. We will obtain cardiopulmonary workup. She was in agreement this plan. She'll receive 324mg baby aspirin. Multiple EKGs were obtained, and showed no obvious signs of acute ischemia. Chest x-ray unremarkable. Labs are remarkable for an undetectable troponin. Vital signs negative. On reevaluation, patient intermittently complains of lower extremity pain. She is chronically on gabapentin as well as [place] and other medications. Chest pain she states did return briefly but then it went away. I do interpret her current presentation is chronic findings with anxiety that she does have a significant cardiac history and therefore we will admit to observation for cardiac monitoring. We will trend troponin. Patient was in agreement this plan. Patient's family was in agreement this plan. Patient's heart score is moderate at 4-5. Cardiology was consulted. I spoke with the admitting physician, Dr. Munoz who accepted the admission. Undiagnosed new problem with uncertain prognosis? @ -No Drug Therapy requiring intensive monitoring for toxicity (Heparin, Nitro, Insulin, Cardizem)? @ -No Were any procedures done? @ -No Diagnosis/symptom? @ -Chest pain Acute, or Chronic, or Acute on Chronic? @ -Acute on chronic Uncomplicated (without systemic symptoms) or Complicated (systemic symptoms)? @ -Complicated Side effects of treatment? @ -No Exacerbation, Progression, or Severe Exacerbation? @ -No Poses a threat to life or bodily function? How? (Chest pain, [place], [place], pneumonia, PE, COPD, DKA, ARF, appy, cholecystitis, CVA, Diverticulitis, Homicidal, Suicidal, threat to staff... and all critical care pts) @ -Potentially, yes Diagnosis/symptom? @ -Anxiety, chronic leg pain Acute, or Chronic, or Acute on Chronic? @ -Acute on chronic Uncomplicated (without systemic symptoms) or Complicated (systemic symptoms)? @ -Complicated Side effects of treatment? @ -none Exacerbation, Progression, or Severe Exacerbation] @ -no Poses a threat to life or bodily function? @ -no - Lab Data Result diagrams: 04/02/23 04:34 04/02/23 04:34 Lab Results 04/02/23 04/02/23 04/02/23 Range/Units 04:34 04:34 04:34 WBC 7.9 (3.8-10.6) k/uL RBC 4.26 (3.80-5.40) m/uL Hgb 13.1 (11.4-16.0) gm/dL Hct 37.7 (34.0-46.0) % MCV 88.6 (80.0-100.0) fL MCH 30.8 (25.0-35.0) pg MCHC 34.8 (31.0-37.0) g/dL RDW 13.1 (11.5-15.5) % Plt Count 255 (150-450) k/uL MPV 7.8 Neutrophils % 43 % Lymphocytes % 43 % Monocytes % 7 % Eosinophils % 4 % Basophils % 1 % Neutrophils # 3.4 (1.3-7.7) k/uL Lymphocytes # 3.4 (1.0-4.8) k/uL Monocytes # 0.6 (0-1.0) k/uL Eosinophils # 0.3 (0-0.7) k/uL Basophils # 0.1 (0-0.2) k/uL PT 9.7 (9.0-12.0) sec INR 0.9 (<1.2) APTT 24.4 (22.0-30.0) sec Sodium 132 L (137-145) mmol/L Potassium 4.5 (3.5-5.1) mmol/L Chloride 99 (98-107) mmol/L Carbon Dioxide 23 (22-30) mmol/L Anion Gap 10 mmol/L BUN 23 H (7-17) mg/dL Creatinine 0.88 (0.52-1.04) mg/dL Est GFR (CKD-EPI)AfAm 68 (>60 ml/min/1.73 sqM) Est GFR (CKD-EPI)NonAf 59 (>60 ml/min/1.73 sqM) Glucose 132 H (74-99) mg/dL Calcium 9.0 (8.4-10.2) mg/dL Magnesium 1.6 (1.6-2.3) mg/dL Total Bilirubin 0.5 (0.2-1.3) mg/dL AST 23 (14-36) U/L ALT 19 (4-34) U/L Alkaline Phosphatase 144 H (38-126) U/L Troponin I (0.000-0.034) ng/mL Total Protein 6.8 (6.3-8.2) g/dL Albumin 4.3 (3.5-5.0) g/dL Influenza Type A (PCR) (Not Detectd) Influenza Type B (PCR) (Not Detectd) RSV (PCR) (Not Detectd) SARS-CoV-2 (PCR) (Not Detectd) 04/02/23 04/02/23 Range/Units 04:34 05:04 WBC (3.8-10.6) k/uL RBC (3.80-5.40) m/uL Hgb (11.4-16.0) gm/dL Hct (34.0-46.0) % MCV (80.0-100.0) fL MCH (25.0-35.0) pg MCHC (31.0-37.0) g/dL RDW (11.5-15.5) % Plt Count (150-450) k/uL MPV Neutrophils % % Lymphocytes % % Monocytes % % Eosinophils % % Basophils % % Neutrophils # (1.3-7.7) k/uL Lymphocytes # (1.0-4.8) k/uL Monocytes # (0-1.0) k/uL Eosinophils # (0-0.7) k/uL Basophils # (0-0.2) k/uL PT (9.0-12.0) sec INR (<1.2) APTT (22.0-30.0) sec Sodium (137-145) mmol/L Potassium (3.5-5.1) mmol/L Chloride (98-107) mmol/L Carbon Dioxide (22-30) mmol/L Anion Gap mmol/L BUN (7-17) mg/dL Creatinine (0.52-1.04) mg/dL Est GFR (CKD-EPI)AfAm (>60 ml/min/1.73 sqM) Est GFR (CKD-EPI)NonAf (>60 ml/min/1.73 sqM) Glucose (74-99) mg/dL Calcium (8.4-10.2) mg/dL Magnesium (1.6-2.3) mg/dL Total Bilirubin (0.2-1.3) mg/dL AST (14-36) U/L ALT (4-34) U/L Alkaline Phosphatase (38-126) U/L Troponin I <0.012 (0.000-0.034) ng/mL Total Protein (6.3-8.2) g/dL Albumin (3.5-5.0) g/dL Influenza Type A (PCR) Not Detected (Not Detectd) Influenza Type B (PCR) Not Detected (Not Detectd) RSV (PCR) Not Detected (Not Detectd) SARS-CoV-2 (PCR) Not Detected (Not Detectd) - EKG Data -: EKG Interpreted by Me EKG Comments: 12-lead Electrocardiogram Interpretation Note EKG was reviewed and interpreted by myself. 12-lead ECG performed at 0425 is interpreted by me as revealing sinus bradycardia with right bundle branch block at a rate of 54 beats per minute. [place] is normal. TN interval is 197 ms, QRS duration is 132 ms, QTc is 434 ms.. There were no ST or T wave abnormalities to suggest myocardial ischemia or injury. R wave progression across the precordium was satisfactory. By my interpretation this EKG is non-diagnostic for acute ischemia. Compared with EKG from 03/15/2023, with no significant change. 12-lead Electrocardiogram Interpretation Note EKG was reviewed and interpreted by myself. 12-lead ECG performed at 0546 is interpreted by me as revealing sinus bradycardia with right bundle branch block at a rate of 55 beats per minute. [place] is normal. TN interval is 193 ms, QRS duration is 136 ms, QTc is 458 ms.. There were no ST or T wave abnormalities to suggest myocardial ischemia or injury. R wave progression across the precordium was satisfactory. By my interpretation this EKG is non-diagnostic for acute ischemia. Disposition Clinical Impression: Chest pain, Leg pain, Anxiety Disposition: ADMITTED IP TO THIS [facility] Condition: Stable Referrals: Anthony Cameron MD [Primary Care Provider] - 1-2 days Time of Disposition: 06:09
--- NOTE | 2023-04-02 07:58 | XR ---
EXAMINATION TYPE: XR chest 1V portable DATE OF EXAM: 04/02/2023 COMPARISON: 03/12/2023 INDICATION: Chest pain TECHNIQUE: Single frontal view of the chest is obtained. FINDINGS: The heart size is normal. The pulmonary vasculature is normal. The lungs are clear. IMPRESSION: 1. No acute pulmonary process.
[2023-04-02] MEDS: CLOPIDOGREL 75 MG TAB PO SCH (09:01)
[2023-04-02] MEDS: LOSARTAN 50 MG TAB PO SCH ×2 (09:02→22:00)
[2023-04-02] MEDS: ATORVASTATIN 40 MG TAB PO SCH (09:02)
[2023-04-02] MEDS: ASPIRIN 81 MG PO SCH (09:02)
[2023-04-02] MEDS: HEPARIN SODIUM,PORCINE 5,000 UNIT/ML 1 ML VIAL SQ SCH ×2 (09:02→22:00)
[2023-04-02] MEDS: METOPROLOL TARTRATE 50 MG TAB PO SCH ×2 (09:02→22:00)
[2023-04-02] MEDS: ISOSORBIDE MONONITRATE ER 60 MG TAB.ER.24H PO SCH (10:13)
[2023-04-02] MEDS ORDERED: GABAPENTIN 100 MG CAP PO PRN (11:16)
[2023-04-02] MEDS ORDERED: SENNOSIDES 8.6 MG TAB PO PRN (11:16)
[2023-04-02] MEDS ORDERED: Acetaminophen-Codeine 300-30mg TAB PO PRN (11:16)
[2023-04-02] MEDS ORDERED: LOSARTAN 50 MG TAB PO SCH (11:30)
[2023-04-02] MEDS ORDERED: METOPROLOL TARTRATE 50 MG TAB PO SCH (11:30)
--- NOTE | 2023-04-02 11:44 | P.HPIM ---
History of Present Illness 87-year-old female came in with complaints of chest pain along with diaphoresis nausea vomiting. Patient had history of stents in the past her chest pain radiated to the left shoulder patient was evaluated by cardiology. Patient had a recent cardiac workup about a month ago all of which came back negative. Patient pain completely resolved at this time patient appears to have history of anxiety and this chest pain is attributed to anxiety patient's troponins are negative EKG did not show any significant acute ST-T wave changes. Patient has mild hyponatremia and hypoglycemia. REVIEW OF SYSTEMS: CONSTITUTIONAL: No fever, no malaise, no fatigue. HEENT: No recent visual problems or hearing problems. Denied any sore throat. CARDIOVASCULAR: No orthopnea, PND, no palpitations, no syncope. PULMONARY: No shortness of breath, no cough, no hemoptysis. GASTROINTESTINAL: No diarrhea, no nausea, no vomiting, no abdominal pain. NEUROLOGICAL: No headaches, no weakness, no numbness. HEMATOLOGICAL: Denies any bleeding or petechiae. GENITOURINARY: Denies any burning micturition, frequency, or urgency. MUSCULOSKELETAL/RHEUMATOLOGICAL: Denies any joint pain, swelling, or any muscle pain. ENDOCRINE: Denies any polyuria or polydipsia. The rest of the 14-point review of systems is negative. PHYSICAL EXAMINATION: GENERAL: The patient is alert and oriented x3, not in any acute distress. Well developed, well nourished. HEENT: Pupils are round and equally reacting to light. EOMI. No scleral icterus. No conjunctival pallor. Normocephalic, atraumatic. No pharyngeal erythema. No thyromegaly. CARDIOVASCULAR: S1 and S2 present. No murmurs, rubs, or gallops. PULMONARY: Chest is clear to auscultation, no wheezing or crackles. ABDOMEN: Soft, nontender, nondistended, normoactive bowel sounds. No palpable organomegaly. MUSCULOSKELETAL: No joint swelling or deformity. EXTREMITIES: No cyanosis, clubbing, or pedal edema. NEUROLOGICAL: Gross neurological examination did not reveal any focal deficits. SKIN: No rashes. Assessment and plan -Chest pain: Secondary to anxiety patient had a recent cardiac workup for all of which is negative. Cardiology is not recommending any further workup the recommending monitoring overnight and repeat troponins -Mild hyponatremia secondary to Lasix which will be held today can be resumed if needed starting tomorrow -Hypoglycemia magnesium will be replaced -Type 2 diabetes mellitus -hyperlipidemia -Anxiety disorder -Hyperthyroidism DVT prophylaxis: Lovenox Past Medical History Past Medical History: Coronary Artery Disease (CAD), CVA/TIA, Diabetes Mellitus, Eye Disorder, GERD/Reflux, Hearing Disorder / Deafness, Hyperlipidemia, Hypertension, Myocardial Infarction ([place]), Osteoarthritis ([place]), Thyroid Disorder Additional Past Medical History / Comment(s): EPISODES OF ANGIOEDEMA, NIDDM TYPE II, 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 , [place]-HEARING AIDS, WEAKNESS RIGHT SIDE -USES WALKER WITH WHEELS. Last Myocardial Infarction Date:: 09/2018 History of Any Multi-Drug Resistant Organisms: None Reported Past Surgical History: Back Surgery, Breast Surgery, Heart Catheterization With Stent, Hysterectomy, Orthopedic Surgery, Tubal Ligation Additional Past Surgical History / Comment(s): PCI with a total of 7 stents, low back surgery, L breast benign bx, R rotator cuff repair, R eye cataract, multiple laser eye surgeries, bilateral eye stents-R one fell out, thyroidectomy d/t nodules, temporal artery bx, cervical and lumbar injections. Past Anesthesia/Blood Transfusion Reactions: Previous Problems w/ Anesthesia, Postoperative Nausea & Vomiting (PONV) Additional Past Anesthesia/Blood Transfusion Reaction / Comment(s): hard to wake up Date of Last Stent Placement:: 10/19/18 Past Psychological History: Anxiety Smoking Status: Never smoker Past Alcohol Use History: None Reported Past Drug Use History: None Reported - Past Family History Mother Family Medical History: Myocardial Infarction ([place]) Additional Family Medical History / Comment(s): MOTHER OF [place] AGE 57YRS. Brother(s) Family Medical History: Myocardial Infarction ([place]) Additional Family Medical History / Comment(s): BROTHER OF A [place] AGE 60YRS. Father Family Medical History: No Reported History Additional Family Medical History / Comment(s): FATHER LIVED TO BE 90YRS OLD. Medications and Allergies Home Medications Medication Instructions Recorded Confirmed Type Vits A,C,E/Lutein/Minerals 1 tab PO HS 05/03/16 04/02/23 History [Ocuvite with Lutein Tablet] Levothyroxine Sodium [Synthroid] 88 mcg PO DAILY 05/31/17 04/02/23 History ALPRAZolam [Xanax] 0.25 mg PO DAILY PRN #30 06/05/17 04/02/23 Rx Glimepiride [Amaryl] 1 mg PO AC-BRKFST 04/28/18 04/02/23 History metFORMIN HCL [Glucophage] 500 mg PO AC-BID 04/28/18 04/02/23 History Atorvastatin [Lipitor] 40 mg PO DAILY 03/26/21 04/02/23 History Aspirin EC [Ecotrin Low Dose] 81 mg PO DAILY 07/19/21 04/02/23 History Famotidine 20 mg PO BID 07/19/21 04/02/23 History Isosorbide Mononitrate ER [Imdur] 30 mg PO DAILY 07/19/21 04/02/23 History Metoprolol Tartrate [Lopressor] 50 mg PO BID 07/19/21 04/02/23 History Cholecalciferol [Vitamin D3 (25 25 mcg PO BID 08/19/22 04/02/23 History Mcg = 1000 Iu)] Sennosides [Senokot] 8.6 mg PO BID PRN #20 tab 08/24/22 04/02/23 Rx Clopidogrel [Plavix] 75 mg PO DAILY 11/09/22 04/02/23 History Acetaminophen-Codeine 300-30mg 1 tab PO Q6H PRN 12/19/22 04/02/23 History [Tylenol w/codeine #3] Furosemide [Lasix] 20 mg PO DAILY 02/18/23 04/02/23 History Gabapentin [Neurontin] 100 mg PO BID PRN #0 02/23/23 04/02/23 Rx Losartan [Cozaar] 50 mg PO BID 03/12/23 04/02/23 History Allergies Allergy/AdvReac Type Severity Reaction Status Date / Time aspartame Allergy Severe Anaphylaxis- Verified 03/12/23 12:42 swelling throat & tongue PAPER TAPE Allergy Unknown Rash/Hives Uncoded 01/09/23 10:29 Physical Exam Vitals: Vital Signs Temp Pulse Pulse Resp BP BP Pulse Ox 04/02/23 08:25 190/60 04/02/23 08:21 97.4 F L 58 L 14 97 04/02/23 07:24 98 F 62 22 138/57 96 04/02/23 06:48 56 L 16 140/49 95 04/02/23 05:32 56 L 16 144/53 98 04/02/23 04:09 97.8 F 56 L 18 202/80 95 Intake and Output 04/01/23 04/02/23 04/02/23 22:59 06:59 14:59 Intake Total 118 Balance 118 Intake: Oral 118 Other: Weight 69.4 kg Results CBC & Chem 7: 04/02/23 04:34 04/02/23 04:34 Labs: Abnormal Lab Results - Last 24 Hours (Table) 04/02/23 Range/Units 04:34 Sodium 132 L (137-145) mmol/L BUN 23 H (7-17) mg/dL Glucose 132 H (74-99) mg/dL Alkaline Phosphatase 144 H (38-126) U/L
[2023-04-02] MEDS ORDERED: DEXTROSE 50% SYRINGE 50 ML IVP PRN ×2 (11:47)
[2023-04-02] MEDS: MAGNESIUM SULFATE-D5W PMX 1 GM in DEXTROSE/WATER 1 100ML.BAG IVPB SCH ×2 (12:05→14:09)
[2023-04-02] MEDS: metFORMIN 500 MG TAB PO SCH ×2 (12:05→17:54)
[2023-04-02 12:18] LABS: Glucose,Whole Blood 184 mg/dL (70-110)
[2023-04-02] MEDS: INSULIN ASPART (NovoLOG) 100 UNIT/ML VIAL SQ SCH ×3 (12:20→21:17)
--- NOTE | 2023-04-02 12:32 | CONS ---
CONSULTATION CHIEF COMPLAINT: Chest pain. HISTORY OF PRESENT ILLNESS: Praveena is an 87-year-old lady with history of coronary artery disease, status post prior angioplasty; CVA; hypertension; hypothyroidism; dyslipidemia and diabetes, who presents to hospital complaining of chest discomfort, headache, and musculoskeletal discomfort. She also complained of chest pain and all of this due to which she is admitted to hospital. Her chest discomfort is mild in intensity. Describes it as a pressure in the precordial area without definite radiation to neck, arm, or back without clear-cut relieving or exacerbating factors. She is ambulating in the room without any symptoms. The patient had a transesophageal echo following a CVA in January of this year that revealed normal LV systolic function. She also has a history of carotid stenosis. EKG on this admission revealed sinus rhythm with right bundle branch block. She has had 1 set of troponin that is negative and her coronavirus test is negative. Hemoglobin is normal at 13.1. PAST MEDICAL HISTORY: Significant for coronary artery disease status post angioplasty; [id number] diabetes; hypertension and hypothyroidism. MEDICATIONS: Medications at home include: 1. Metformin. 2. Lopressor 50 b.i.d. 3. Cozaar 50 b.i.d. 4. Synthroid. 5. Imdur. 6. Amaryl. 7. Neurontin. 8. Lasix. 9. Plavix. 10.Vitamin D. 11.Aspirin. 12.Lipitor. 13.Xanax. FAMILY HISTORY: Negative for premature coronary artery disease. SOCIAL HISTORY: Negative for smoking, EtOH abuse, or drug abuse. REVIEW OF SYSTEMS: 14 out of 14 review of systems has been performed, pertinents are as documented. PHYSICAL EXAMINATION: GENERAL: Comfortable at rest. VITAL SIGNS: Stable. NECK: There is no jugular venous distention. Carotid upstroke is normal. There is no bruit. CHEST: Reveals good air entry bilaterally. HEART: Reveals first and second heart sounds. An ejection systolic murmur in the aortic area. ABDOMEN: Soft. EXTREMITIES: Exam of the extremities did not reveal any edema. Peripheral pulses are felt. CLINICAL INFORMATION: The patient's EKG shows sinus rhythm with right bundle branch block. The patient had a stress test in March of 2020 that revealed a small size, mild intensity anteroseptal reversible perfusion defect. The patient has had a cardiac catheterization and angioplasty of circumflex coronary artery in 2019 and had an occluded right coronary artery and had prior stenting of the LAD. ASSESSMENT: 1. Precordial chest pain. 2. Coronary artery disease, status post prior angioplasty. 3. Cerebrovascular accident. PLAN: The patient's chest discomfort is atypical. She will continue current medications to control her blood pressure well and obtain 2 more sets of troponins. If this workup is negative, from cardiac standpoint, we should be able to discharge her home. MMODL / IJN: [id number] /
[2023-04-02 12:45] LABS: Appearance,Urine Clear (Clear); Bilirubin,Urine Negative (Negative); Blood,Urine Negative (Negative); Color,Urine Colorless; Glucose,Urine (UA) Negative (Negative); Ketones,Urine Negative (Negative); Leukocyte Esterase,Urine Negative (Negative); Nitrite,Urine Negative (Negative); Protein,Urine Negative (Negative); Specific Gravity,Urine 1.007 (1.001-1.035); Urobilinogen,Urine <2.0 mg/dL (<2.0)
[2023-04-02 17:35] LABS: Glucose,Whole Blood 150 mg/dL (70-110)
[2023-04-02] MEDS ORDERED: FAMOTIDINE 20 MG TAB PO SCH (21:00)
[2023-04-02 21:05] LABS: Glucose,Whole Blood 131 mg/dL (70-110)
[2023-04-03] MEDS: LEVOTHYROXINE 88 MCG TAB PO SCH (06:13)
[2023-04-03] MEDS: INSULIN ASPART (NovoLOG) 100 UNIT/ML VIAL SQ SCH ×4 (06:14→20:34)
[2023-04-03 06:15] LABS: Glucose,Whole Blood 147 mg/dL (70-110)
[2023-04-03] MEDS: metFORMIN 500 MG TAB PO SCH ×2 (06:18→17:55)
[2023-04-03] MEDS: FAMOTIDINE 20 MG TAB PO SCH (08:09)
[2023-04-03] MEDS: CLOPIDOGREL 75 MG TAB PO SCH (08:09)
[2023-04-03] MEDS: GLIMEPIRIDE 1 MG TAB PO SCH (08:09)
[2023-04-03] MEDS: LOSARTAN 50 MG TAB PO SCH ×2 (08:09→20:34)
[2023-04-03] MEDS: ASPIRIN 81 MG PO SCH (08:09)
[2023-04-03] MEDS: ATORVASTATIN 40 MG TAB PO SCH (08:09)
[2023-04-03] MEDS: ENOXAPARIN 40 MG/0.4 ML SYRINGE SQ SCH (08:10)
[2023-04-03] MEDS: HEPARIN SODIUM,PORCINE 5,000 UNIT/ML 1 ML VIAL SQ SCH (08:10)
[2023-04-03] MEDS: ISOSORBIDE MONONITRATE ER 60 MG TAB.ER.24H PO SCH (08:49)
[2023-04-03] MEDS ORDERED: CLOPIDOGREL 75 MG TAB PO SCH (09:00)
[2023-04-03] MEDS ORDERED: NON FORMULARY DRUG (Aspirin Ec 81 MG Tablet) PO SCH (09:00)
[2023-04-03] MEDS ORDERED: ISOSORBIDE MONONITRATE ER 30 MG TAB.ER.24H PO SCH (09:00)
[2023-04-03] MEDS ORDERED: ATORVASTATIN 40 MG TAB PO SCH (09:00)
--- NOTE | 2023-04-03 10:01 | P.PN ---
Subjective Progress Note Date: 04/03/23 History of present illness: This is an 87-year-old female with past medical history of coronary artery dis ease status post prior angioplasty, CVA, hypertension, hypothyroidism, dyslipidemia, diabetes. Patient presented to the hospital due to chest discomfort, headache and musculoskeletal discomfort. She described chest pain as mild in intensity and pressure in the precordial area without definite radi ation and without clear-cut relieving or exacerbating factors. Patient has ambulated in the room yesterday without any symptoms. She had a previous transesophageal echo following CVA in January of this year that revealed normal LV systolic function. She has a history of carotid stenosis. EKG on admission revealed sinus rhythm with right bundle branch block. Patient was cleared for discharge yesterday as long as repeat troponins came back negative. This morning, blood pressure 208/79. Heart rate is in the 50s. Physical examination: Gen: This is an 87-year-old female. She is resting but appears to be comfortable and in no acute distress. VS: reviewed HEENT: Head is atraumatic, normocephalic. Pupils equal, round. Sclerae is anicteric. LUNGS: Clear to auscultation. No wheezes or rhonchi. No intercostal retractions. HEART: Regular rate and rhythm. Systolic ejection murmur in the aortic area. EXTREMITIES: No pedal edema. No calf tenderness. NEUROLOGICAL: Patient is awake, alert and oriented x3. Assessment: Precordial chest pain, acute Len syndrome ruled out Coronary artery disease status post prior angioplasty CVA history Uncontrolled hypertension Plan: No further cardiac workup is indicated at this time Patient to receive her morning blood pressure medications and reassess blood pressure later. If this is stable, patient is cleared for discharge home and may follow-up in the office with Dr. Silva in one to 2 weeks.. Nurse practitioner note has been reviewed, I agree with documented findings and plan of care. Patient was seen and examined. Objective - Vital Signs Vital signs: Vital Signs Temp 98.2 F 04/03/23 02:00 Pulse 55 L 04/03/23 05:01 Resp 16 04/03/23 02:00 BP 183/78 04/03/23 05:01 Pulse Ox 95 04/03/23 02:00 FiO2 Intake & Output 04/02/23 04/03/23 04/03/23 18:59 06:59 18:59 Intake Total 354 Balance 354 Weight 69.4 kg Intake: Oral 354 Other: # Voids 3 2 - Labs CBC & Chem 7: 04/02/23 04:34 04/02/23 04:34 Labs: Abnormal Lab Results - Last 24 Hours (Table) 04/02/23 04/02/23 04/02/23 Range/Units 12:06 17:33 21:03 POC Glucose (mg/dL) 184 H 150 H 131 H (70-110) mg/dL 04/03/23 Range/Units 06:13 POC Glucose (mg/dL) 147 H (70-110) mg/dL
[2023-04-03] MEDS: ALPRAZolam 0.25 MG TAB PO PRN (10:03)
[2023-04-03] MEDS ORDERED: RX INFO: IV CONTRAST WAS GIVEN 1 EACH MISC MISCELLANE PRN (10:47)
--- NOTE | 2023-04-03 11:31 | CT ---
EXAMINATION TYPE: CT chest w con DATE OF EXAM: 04/03/2023 COMPARISON: 08/19/2022 HISTORY: chest pain, dissection CT DLP: 652 mGycm, Automated exposure control for dose reduction was used. CONTRAST: Performed injected with 80 mL of Isovue 300. TECHNIQUE: Axial images were obtained at 5 mm thick sections. Reconstructed images are reviewed on [employer] computer in the coronal plane. FINDINGS: Portion of the thyroid visualized is normal. No suspicious lung nodules or focal infiltrates are present. No enlarged mediastinal or hilar adenopathy is evident. The ascending aorta diameter at the level o f the main pulmonary artery is 3.0 cm. The main pulmonary artery diameter at the bifurcation is 2.3 cm. No aortic dissection is evident. No thoracic aortic aneurysm is evident. Vascular calcification n oted within the aorta. Coronary artery calcifications also present. Limited CT sections are obtained through the upper abdomen. Small hiatal hernia is present. IMPRESSIONS: 1. No thoracic aortic dissection or aneurysm. 2. Small hiatal hernia.
[2023-04-03 12:38] LABS: Glucose,Whole Blood 98 mg/dL (70-110)
[2023-04-03] MEDS: amLODIPine 10 MG TAB PO SCH (12:48)
[2023-04-03] MEDS: METOPROLOL TARTRATE 50 MG TAB PO SCH ×2 (14:39→20:34)
[2023-04-03 17:37] LABS: Glucose,Whole Blood 153 mg/dL (70-110)
[2023-04-03 18:48] LABS: Glucose,Whole Blood 213 mg/dL (70-110)
[2023-04-04 06:05] LABS: Glucose,Whole Blood 131 mg/dL (70-110)
[2023-04-04] MEDS: LEVOTHYROXINE 88 MCG TAB PO SCH (06:16)
[2023-04-04] MEDS: INSULIN ASPART (NovoLOG) 100 UNIT/ML VIAL SQ SCH ×2 (06:19→13:01)
--- NOTE | 2023-04-04 06:35 | PN ---
PROGRESS NOTE DATE OF SERVICE: 04/03/2023 SUBJECTIVE: This is an 87-year-old woman who is admitted with chest pain. She is also having severe pain at this time. The patient also has some anxiety issues as well. Cardiology is following the patient. The patient had a recent workup. OBJECTIVE: VITAL SIGNS: Pulse is 52, blood pressure 208/79, respirations 16. blood pressure elevated. HEENT: Conjunctivae normal. CARDIOVASCULAR: S1, S2. ABDOMEN: Soft. NERVOUS SYSTEM: Nonfocal. LABORATORY DATA: Reviewed. ASSESSMENT: 1. Chest pain, possible unstable angina. 2. Accelerated hypertension. 3. Mild hyponatremia. 4. Multiple medical issues. RECOMMENDATIONS AND DISCUSSION: I recommend to continue current medications, continue symptomatic treatment. Otherwise, follow up closely with Cardiology. I would add Norvasc to the current regimen. See orders for further details. Further recommendations to follow. Continue with antiplatelet agents. MMODL / IJN: [id number] / MTDD
[2023-04-04] MEDS: GLIMEPIRIDE 1 MG TAB PO SCH (09:05)
[2023-04-04] MEDS: ISOSORBIDE MONONITRATE ER 60 MG TAB.ER.24H PO SCH (09:05)
[2023-04-04] MEDS: ASPIRIN 81 MG PO SCH (09:05)
[2023-04-04] MEDS: FAMOTIDINE 20 MG TAB PO SCH (09:05)
[2023-04-04] MEDS: LOSARTAN 50 MG TAB PO SCH (09:05)
[2023-04-04] MEDS: ATORVASTATIN 40 MG TAB PO SCH (09:05)
[2023-04-04] MEDS: metFORMIN 500 MG TAB PO SCH (09:05)
[2023-04-04] MEDS: METOPROLOL TARTRATE 50 MG TAB PO SCH (09:05)
[2023-04-04] MEDS: ENOXAPARIN 40 MG/0.4 ML SYRINGE SQ SCH (09:05)
[2023-04-04] MEDS: CLOPIDOGREL 75 MG TAB PO SCH (09:05)
[2023-04-04] MEDS: amLODIPine 10 MG TAB PO SCH (09:05)
[2023-04-04] MEDS: ALPRAZolam 0.25 MG TAB PO PRN (09:11)
[2023-04-04 12:15] LABS: ALT 18 U/L (8-44); AST 18 U/L (13-35); Albumin 4.1 d/dL (3.8-4.9); Albumin/Globulin Ratio 1.86 Ratio (1.60-3.17); Alkaline Phosphatase 154 U/L (41-126); BUN/Creat Ratio 19.44 Ratio (12.00-20.00); Blood Urea Nitrogen 17.5 mg/dL (9.0-27.0); Calcium 9.1 mg/dL (8.7-10.3); Chloride 103 mmol/L (96-109); Globulin 2.2 d/dL (1.6-3.3); Glucose 135 mg/dL (70-110); Sodium 136 mmol/L (135-145); Total Bilirubin 0.3 mg/dL (0.3-1.2); Total Protein 6.3 d/dL (6.2-8.2)
[2023-04-04 12:16] LABS: Basophils # (A) 0.06 X 10*3/uL (0.00-0.10); Eosinophils # (A) 0.33 X 10*3/uL (0.04-0.35); Eosinophils % (A) 5.6 %; HCT 37.4 % (37.2-46.3); HGB 12.5 d/dL (12.0-15.0); Lymphocytes # (A) 2.15 X 10*3/uL (0.90-5.00); Lymphocytes % (A) 36.4 %; MCH 30.2 pg (27.0-32.0); MCHC 33.4 d/dL (32.0-37.0); MCV 90.3 FL (80.0-97.0); Mean Platelet Volume 10.6 FL (9.5-12.2); Monocytes # (A) 0.58 X 10*3/uL (0.20-1.00); Monocytes % (A) 9.8 %; NRBC Per 100 WBC 0 X 10*3/uL (0.00-0.01); Neutrophils # (A) 2.78 X 10*3/uL (1.80-7.70); Platelet Count 285 X 10*3/uL (140-440); RBC 4.14 X 10*6/uL (4.10-5.20); RBC Morphology Normal (Normal); RDW 13.4 % (11.5-14.5); WBC 5.91 X 10*3/uL (4.50-10.00)
[2023-04-04 12:29] LABS: Glucose,Whole Blood 186 mg/dL (70-110)
[2023-04-04] MEDS ORDERED: ESCITALOPRAM 5 MG TAB PO SCH (14:15)
--- NOTE | 2023-04-04 14:21 | P.CN ---
Psychiatric Consult - . Consult date: 04/04/23 Consult:: 04/04/23 13:16 IDENTIFYING DATA: This patient is a 87-year-old female, currently lives with her son in a house, she is has 3 kids. REASON FOR REFERRAL: Psychiatry was consulted for "anxiety, panic attacks" HISTORY OF PRESENT ILLNESS: The patient presented to the hospital initially on 04/02 complaining of chest pain, body pain and headaches and also leg pain. Patient was also door endorsing severe anxiety and panic attacks. Patient was admitted for a ACS rule out. Patient was seen today laying on the bed and was pleasant and agreeable sick to scientific writer. She was sitting with her son as well. She correctly identified her name, age and location she knew that it was March 2023 however does not know today's date. She claims that she was having severe chest pain and due to having a strong history of cardiac issues and also stroke she came to the hospital. She states that she has been having severe anxiety and panic attacks for about 8 or 9 years. States that she was "sick to my stomach". Claims that she has a history of having stents in her heart. Claims that she does get anxiety related to the previous stroke and also cardiac issues. States that she takes Xanax only as needed lower dose. States that she also takes Tylenol with Codeine for sleep. She states that she feels mildly depressed however this is chronic and mainly related to being alone and the passing of her . She states that she sleeps well 45 hours a night, fair fair appetite. She says she does have the panic attacks that occur at all times and lasts several minutes. At this time patient denies any suicidal or homical ideations, intent or plan. Patient denies any auditory, visual hallucinations and denies any paranoia or delusions. Patients admits to using no recreational drugs or cigarettes. PAST PSYCHIATRIC HISTORY: Patient has a a history of generalized anxiety disorder and panic attacks. Patient is currently taking Xanax when necessary for anxiety. Patient denies any previous psychiatric hospitalizations. Patient denies any psychiatric outpatient follow-up. Patient denies any history of suicide attempts in the past. 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 , [place]-HEARING AIDS, WEAKNESS RIGHT SIDE -USES WALKER WITH WHEELS. Last Myocardial Infarction Date:: 09/2018 History of Any Multi-Drug Resistant Organisms: None Reported Past Surgical History: Back Surgery, Breast Surgery, Heart Catheterization With Stent, Hysterectomy, Orthopedic Surgery, Tubal Ligation Additional Past Surgical History / Comment(s): PCI with a total of 7 stents, low back surgery, L breast benign bx, R rotator cuff repair, R eye cataract, multiple laser eye surgeries, bilateral eye stents-R one fell out, thyroidectomy d/t nodules, temporal artery bx, cervical and lumbar injections. Past Anesthesia/Blood Transfusion Reactions: Previous Problems w/ Anesthesia, Postoperative Nausea & Vomiting (PONV) Additional Past Anesthesia/Blood Transfusion Reaction / Comment(s): hard to wake up Date of Last Stent Placement:: 10/19/18 Past Psychological History: Anxiety Smoking Status: Never smoker Past Alcohol Use History: None Reported Past Drug Use History: None Reported ALLERGIES: as per EMR. CHEMICAL DEPENDENCY HISTORY: as per HPI. FAMILY PSYCHIATRIC/SUBSTANCE USE HISTORY: denies SOCIAL HISTORY: Patient was born and raised in [place] in the [facility]. 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 She states that she is currently , she had 3 kids, she lives in a house with her son. Denies any legal history. MENTAL STATUS EXAM: General Appearance: Patient appears to be elderly, short hair, stated age is alert, pleasant, and cooperative. Patient appears to have fair hygiene and glo oming wearing hospital gown with fair eye contact. Behavior: Patient is calmly lying in bed without any agitated behavior. Attempts to cooperate. Speech: Patient's speech is fluent and nonpressured. Rambles at times Mood/Affect: Patient reports their mood is "depressed sometimes but anxious", affect is congruent Suicidality/Homicidality: Patient denies having any suicidal or homicidal ideation intent or plan. Perceptions: Patient denies any visual hallucinations and denies any auditory hallucinations Though content/process: There is no evidence of any delusional thought content and thought process is linear and goal-directed. Rambles at times. Memory and concentration: AOX3, grossly intact for the purposes of this session. Can spell "WORLD" backwards Judgment and insight: Fair IMPRESSIONS: Generalized anxiety disorder with panic attacks Depressive disorder unspecified PLAN: -At this time patient DOES NOT meet criteria for inpatient psychiatric admission. -Would recommend the following medication changes/additions: can continue very small dose of xanax prn for anxiety as her home dose, spoke with her about the risks and problesm associated with bzd use. added lexapro 5 mg daily for mood/anxiety, melatonin 3 mg qhs scheduled for sleep. -production staff worker to provide patient with outpatient mental health/psychiatry resources for appropriate follow up upon discharge -Communicated plan to patient's nurse -Psychiatry will sign off at this time -Please contact with any questions. 04/04/23 14:16
[2023-04-04 16:09] VITALS: BP 113/61; PULSE 60; RESP 17; TEMP 97.8
[2023-04-04] MEDS ORDERED: MELATONIN 3 MG TABLET PO SCH (21:00)
--- NOTE | 2023-04-05 15:03 | P.DS ---
Providers Date of admission: 04/02/23 06:15 Expected date of discharge: 04/04/23 Attending physician: Deshawn Munoz MD Consults: 04/02/23 06:15 Consult Physician Routine Consulting Provider: [facility] Consult Reason/Comments: chest pain Do you want consulting provider notified?: Yes 04/03/23 14:12 Consult Physician Urgent Consulting Provider: Isrrael Villa Consult Reason/Comments: severe anxiety, panic attacks Do you want consulting provider notified?: Yes Primary care physician: Anthony Cameron Hospital Course: Final diagnosis Chest pain, possible unstable angina, ACS ruled out Accelerated hypertension Mild hyponatremia Anxiety with panic attacks History of coronary artery disease History of CVA/TIA Diabetes mellitus, type II GERD History of hyperlipidemia History of hypertension Discharge disposition Patient is being discharged in a stable condition with guarded prognosis to home with Dr. Cameron in the outpatient setting upon discharge. Patient is to continue with current medications as mentioned below and outpatient follow-up with cardiology as scheduled. Total time taken is greater than 35 minutes. Hospital course This is a 87-year-old female who was recently admitted with chest pain and hypertensive urgency being closely monitored. Patient was seen and evaluated by cardiology made some minor adjustments to medications including adding a blood pressure medication and has been cleared for outpatient follow-up. Patient also seen and evaluated by psychiatry as patient has been having increased panic attacks and anxiety and has been weaning off Xanax per family outpatient. Patient being started on low-dose Lexapro along with melatonin for sleep at night and instructed to follow-up with primary care provider this week. Please refer to other consultation notes for further HPI. Currently no reports of chest pain, shortness of breath, or palpitations. Patient is afebrile. No reports of nausea or vomiting and patient is tolerating diet. Patient will be going t Home today. guarded prognosis and high risk for readmission this patient has had frequent hospitalizations most recently and has been having progressively more anxiety and panic attacks. Physical exam: Gen: This is an 87-year-old female is awake, alert and oriented 3, well- developed, well-nourished, obese, anxious HEENT: Head is atraumatic, normocephalic. Pupils equal, round. Sclerae is anicteric. NECK: Supple. No JVD. No lymphadenopathy. No thyromegaly. LUNGS: breath sounds diminished bilaterally with No wheezes or rhonchi. No intercostal retractions. HEART: S1, S2 are muffled ABDOMEN: Soft. obese. Bowel sounds are present. No masses. No tenderness. EXTREMITIES: No pedal edema. No calf tenderness. NEUROLOGICAL: Patient is awake, alert and oriented x3. Cranial nerves 2 through 12 are grossly intact. Please refer to medication reconciliation sheet for a list of medications. The impression and plan of care has been dictated by Kesha Velásquez, Nurse Practitioner as directed. Dr. Quinton MD I have performed a history and examination and MDM of this patient, discussed the same with the dictator, and agree with the dictator's assessment and plan as written ,documented as a scribe. Based on total visit time, I have performed more than 50% of the visit. Patient Condition at Discharge: Stable Plan - Discharge Summary New Discharge Prescriptions: New Escitalopram [Lexapro] 5 mg PO DAILY #30 tablet Melatonin 3 mg PO HS 30 Days #30 tablet Isosorbide Mononitrate ER [Imdur] 60 mg PO DAILY 30 Days #30 tab amLODIPine [Norvasc] 10 mg PO DAILY #30 tab Continue Vits A,C,E/Lutein/Minerals [Ocuvite with Lutein Tablet] 1 tab PO HS Levothyroxine Sodium [Synthroid] 88 mcg PO DAILY ALPRAZolam [Xanax] 0.25 mg PO DAILY PRN #30 PRN Reason: Anxiety metFORMIN HCL [Glucophage] 500 mg PO AC-BID Glimepiride [Amaryl] 1 mg PO AC-BRKFST Atorvastatin [Lipitor] 40 mg PO DAILY Metoprolol Tartrate [Lopressor] 50 mg PO BID Aspirin EC [Ecotrin Low Dose] 81 mg PO DAILY Cholecalciferol [Vitamin D3 (25 Mcg = 1000 Iu)] 25 mcg PO BID Gabapentin [Neurontin] 100 mg PO BID PRN #0 PRN Reason: NERVE PAIN Losartan [Cozaar] 50 mg PO BID Famotidine 20 mg PO BID Sennosides [Senokot] 8.6 mg PO BID PRN #20 tab PRN Reason: Constipation Clopidogrel [Plavix] 75 mg PO DAILY Acetaminophen-Codeine 300-30mg [Tylenol w/codeine #3] 1 tab PO Q6H PRN PRN Reason: Pain Furosemide [Lasix] 20 mg PO DAILY Discontinued Isosorbide Mononitrate ER [Imdur] 30 mg PO DAILY Discharge Medication List Vits A,C,E/Lutein/Minerals [Ocuvite with Lutein Tablet] 1 tab PO HS 05/03/16 [History] Levothyroxine Sodium [Synthroid] 88 mcg PO DAILY 05/31/17 [History] ALPRAZolam [Xanax] 0.25 mg PO DAILY PRN #30 06/05/17 [Rx] Glimepiride [Amaryl] 1 mg PO AC-BRKFST 04/28/18 [History] metFORMIN HCL [Glucophage] 500 mg PO AC-BID 04/28/18 [History] Atorvastatin [Lipitor] 40 mg PO DAILY 03/26/21 [History] Aspirin EC [Ecotrin Low Dose] 81 mg PO DAILY 07/19/21 [History] Famotidine 20 mg PO BID 07/19/21 [History] Metoprolol Tartrate [Lopressor] 50 mg PO BID 07/19/21 [History] Cholecalciferol [Vitamin D3 (25 Mcg = 1000 Iu)] 25 mcg PO BID 08/19/22 [History] Sennosides [Senokot] 8.6 mg PO BID PRN #20 tab 08/24/22 [Rx] Clopidogrel [Plavix] 75 mg PO DAILY 11/09/22 [History] Acetaminophen-Codeine 300-30mg [Tylenol w/codeine #3] 1 tab PO Q6H PRN 12/19/22 [History] Furosemide [Lasix] 20 mg PO DAILY 02/18/23 [History] Gabapentin [Neurontin] 100 mg PO BID PRN #0 02/23/23 [Rx] Losartan [Cozaar] 50 mg PO BID 03/12/23 [History] Escitalopram [Lexapro] 5 mg PO DAILY #30 tablet 04/04/23 [Rx] Isosorbide Mononitrate ER [Imdur] 60 mg PO DAILY 30 Days #30 tab 04/04/23 [Rx] Melatonin 3 mg PO HS 30 Days #30 tablet 04/04/23 [Rx] amLODIPine [Norvasc] 10 mg PO DAILY #30 tab 04/04/23 [Rx] Follow up Appointment(s)/Referral(s): Anthony Cameron MD [Primary Care Provider] - 1-2 days Les Silva MD [STAFF PHYSICIAN] - 1 Week Patient Instructions/Handouts: Anxiety (GEN) Activity/Diet/Wound Care/Special Instructions: Activity Limited until follow-up Follow-up with primary care provider this week Follow-up cardiology outpatient in 1-2 weeks Continue taking medications as prescribed Continue diabetic/heart healthy diet Discharge/Stand Alone Forms: Outpatient Counseling Discharge Disposition: HOME SELF-CARE
== END 2023-04-04 15:54 | disposition home or self-care (01) ==
LOC: EC 04:02 → 6NMEDSUR 06:15 → UNDODISOB 15:10
PROVIDERS: ADMIT Internal Medicine; ATTEND Internal Medicine
DX: R07.2 Precordial pain (principal); M79.605 Pain in left leg; M79.604 Pain in right leg; F41.0 Panic disorder [episodic paroxysmal anxiety]; F32.A Depression, unspecified; E11.649 Type 2 diabetes mellitus with hypoglycemia without coma; E87.1 Hypo-osmolality and hyponatremia; E05.90 Thyrotoxicosis, unspecified without thyrotoxic crisis or storm; I25.10 Atherosclerotic heart disease of native coronary artery without angina pectoris; K21.9 Gastro-esophageal reflux disease without esophagitis; E78.5 Hyperlipidemia, unspecified; I10 Essential (primary) hypertension; I25.2 Old myocardial infarction; G43.909 Migraine, unspecified, not intractable, without status migrainosus; E89.0 Postprocedural hypothyroidism; Z86.73 Personal history of transient ischemic attack (TIA), and cerebral infarction without residual deficits; Z95.5 Presence of coronary angioplasty implant and graft; Z79.890 Hormone replacement therapy; Z79.84 Long term (current) use of oral hypoglycemic drugs; Z79.899 Other long term (current) drug therapy; Z79.82 Long term (current) use of aspirin; Z79.02 Long term (current) use of antithrombotics/antiplatelets; Z20.822 Contact with and (suspected) exposure to COVID-19
CPT/HCPCS: 96365; 96366; 96372 ×3; 96375; 99285; 36415; 94760 ×2; 93005; 80053 ×2; 83735; 84484; 85025 ×2; 85610; 85730; 81003; 87636; 71045; 71260; G0378 ×3; J2270; J0360; J1644; J1650; J3475; Q9967